=== PATIENT | female | born 1945 | race Caucasian/White ===

== ENCOUNTER → 2019-05-20 11:14 | Outpatient (CLI) | payer MEDICARE, OTHER, SELFPAY ==
[2019-05-20 12:24] LABS: Add Manual Diff / Slide Review NO; Basophils Absolute Auto 0 /uL (0-100); Basophils Percent Auto 0.7 % (0-2); Eosinophils Absolute Auto 200 /uL (0-450); Eosinophils Percent Auto 3.6 % (2-4); Hematocrit 38.8 % (36-46); Hemoglobin 12.8 g/dL (12.0-16.0); Lymphocytes Absolute Auto 1200 /uL (1100-4500); Lymphocytes Percent Auto 24.7 % (25-40); Mean Corpuscular HGB Conc 32.9 % (30-36); Mean Corpuscular Hemoglobin 30.7 PG (26-34); Mean Corpuscular Volume 93.2 fL (80-100); Monocytes Absolute Auto 500 /uL (0-900); Monocytes Percent Auto 10.6 % (3-14); Neutrophils Absolute Auto 2900 /uL (1500-7000); Neutrophils Percent Auto 60.4 % (50-75); Platelet Count 161 X10^3/uL (150-400); Red Blood Cell Count 4.17 X10^6/uL (4.0-5.2); Red Cell Distribution Width 13.2 % (11.6-14.8); White Blood Cell Count 4.8 X10^3/uL (4.5-11.0)
[2019-05-20 12:37] LABS: Creatine Kinase 54 U/L (30-135)
[2019-05-20 12:38] LABS: C-Reactive Protein Quant < 0.5 mg/dL (<1.0)
[2019-05-20 12:54] LABS: Erythrocyte Sedimentation Rate 9 MM/HR (0-20)
== END ==
PROVIDERS: PCP Internal Medicine; Visit Provider Internal Medicine
DX: M79.10 Myalgia, unspecified site (principal); M79.606 Pain in leg, unspecified; E03.9 Hypothyroidism, unspecified; I10 Essential (primary) hypertension; I48.0 Paroxysmal atrial fibrillation; Z79.01 Long term (current) use of anticoagulants
CPT/HCPCS: 36415; 82550; 85025; 85651; 86140

== ENCOUNTER → 2019-08-04 09:08 | Outpatient (CLI) | payer MEDICARE, OTHER, SELFPAY ==
--- NOTE | 2019-08-04 09:11 | DI.RAD.S_ITS ---
PROCEDURE: XR LUMBAR SPINE MIN 4V INDICATIONS: Leg Weakness TECHNIQUE: 5 total views of the lumbar spine were acquired, including bilateral oblique views. COMPARISON: [facility], MR, LUMBAR SPINE W/O CONTRAST, 12/22/2009, 18:26. [facility], CR, L-SPINE 2-3 VIEWS, 10/14/2006, 9:43. FINDINGS: Bones: 5 nonrib-bearing, lumbar type vertebral bodies are seen. No displaced fractures are seen. No suspicious lytic or blastic lesions are seen. There is moderate levoconvex lumbar scoliosis. There is mild retrolisthesis seen at L2-L3 and L3-L4. There is moderate to severe disc space narrowing seen at L1-L2 L3, L3-L4. Yspx-pj-yteagbuc disc space narrowing is seen at T12-L1, L4-L5, and L5-S1. Endplate irregularity and sclerosis are seen, which are most prominent at L1-L2 and L2-L3. Several levels of bridging anterior osteophytes are seen. Facet arthropathy is seen throughout. Soft tissues: Overlying bowel gas pattern is normal. No suspicious soft tissue calcifications. Cholecystectomy clips are seen. Oblique images: No pars defects. IMPRESSION: Levoconvex scoliosis and multiple levels of degenerative change, which are most prominent superiorly. No pars defects are seen. Dictated by: Joshua Mustafa M.D. on 08/04/2019 at 10:23 Approved by: Joshua Mustafa M.D. on 08/04/2019 at 10:26
== END ==
PROVIDERS: PCP Internal Medicine; Referring Provider Family Medicine; Visit Provider Family Medicine
DX: M47.816 Spondylosis without myelopathy or radiculopathy, lumbar region (principal); R29.898 Other symptoms and signs involving the musculoskeletal system; M41.86 Other forms of scoliosis, lumbar region; M43.16 Spondylolisthesis, lumbar region
CPT/HCPCS: 72110

== ENCOUNTER → 2019-08-31 09:18 | Outpatient (CLI) | payer MEDICARE, OTHER, SELFPAY | PROVIDERS: PCP Family Medicine; Referring Provider Family Medicine; Visit Provider Internal Medicine | DX: M85.852 Other specified disorders of bone density and structure, left thigh (principal); Z78.0 Asymptomatic menopausal state; E07.9 Disorder of thyroid, unspecified; Z82.62 Family history of osteoporosis | CPT/HCPCS: 77080; 77081 ==

== ENCOUNTER 2019-09-13 14:30 | Outpatient (RCR) | payer MEDICARE, OTHER, SELFPAY ==
--- NOTE | 2019-08-11 19:40 | PT.OIE ---
Current Diagnoses Spondylolisthesis, site unspecified (08/11/19) Difficulty in walking, not elsewhere classified (08/11/19) Abnormal posture (08/11/19) Weakness (08/11/19) Past Medical History (Last Reviewed 08/04/19 @ 18:04 by Jonathan Johnston DO) Abnormal chest xray (Inactive ~2010) Allergies (Chronic ~1999) Cardiac arrhythmia (Chronic ~2010) Cerumen impaction (Acute) Chicken pox (Resolved ~1949) Colon polyps (Chronic ~2016) Deep vein thrombosis (Chronic ~2010) Diverticular disease (Chronic ~2010) Essential hypertension (Chronic ~2004) GERD (gastroesophageal reflux disease) (Chronic ~2004) Headache (Chronic) Hearing loss (Chronic ~2008) Heart failure (Chronic ~2010) Heart stopped beating (Resolved ~2010) History of pulmonary embolism (Chronic ~2010) History of respiratory disorder (Chronic ~2010) Hypothyroid (Chronic) 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 ~1966) longterm current use of anticoagulant (Chronic) Measles (Resolved ~1949) Mumps (Resolved) Osteopenia (Chronic ~2004) Paroxysmal A-fib (Chronic ~2010) Pertussis (Resolved ~1954) Rheumatoid arthritis (Chronic) Rib fractures (Resolved) Rubella (Resolved ~1949) Scoliosis (Chronic ~1954) Sinusitis (Acute) Spondylisthesis (Acute) TGA (transient global amnesia) (Chronic ~2014) Vision disorder (Chronic) Past Surgical History (Last Updated 02/11/19 @ 19:36 by Anaid Tamez) Anesthesia (Resolved) Cataracts, bilateral (Resolved ~2013) History of colectomy (Resolved ~2010) History of dilation and curettage (Resolved) History of kidney surgery (Resolved ~2010) History of surgery (Resolved ~1966) History of tonsillectomy and adenoidectomy (Resolved) History of tubal ligation (Resolved) S/P devora (Resolved ~1992) S/P exploratory laparotomy (Resolved) S/P partial colectomy (Resolved ~2010) Strabismus (Resolved) Visit Care Team Role Provider Type Mo [place] MD Primary Care Provider Physician Specialty: Internal Medicine Address: [address] [place] [address], [address], [facility] Email: [email or web address] Jonathan Johnston DO Attending Provider Physician Referring Provider Specialty: Family Practice Address: [address] [place] [address], [id number] Email: [email or web address] Physical Therapy Initial Evaluation PT-OP-A Visit Information Start: 08/11/19 08:17 Freq: Status: Active Protocol: Document 08/11/19 08:17 [facility] (Rec: 08/11/19 09:09 [facility] [id number]) Out-Patient Physical Therapy Visit Information Visit Information Visit Type Initial Evaluation Visit Start Time 08:17 Visit Stop Time 09:00 Total Visit Minutes 43 Visit Number 1 Number of SITE LEASING AGENT Visits 0 PT-OP-B Current Condition Start: 08/11/19 08:17 Freq: Status: Active Protocol: Document 08/11/19 08:17 [facility] (Rec: 08/11/19 09:09 [facility] [id number]) Current Condition History of Current Condition Onset Date 2009 Current Complaints LBP, dec L leg strength, dec balance History of Current Condition Pt reports in 2009 she had a MRI and was diagonosed with nerve issues and did PT. SHe had septic shock and kidney failure with further medical issues where [facility] was in the hospital and bed bound. Pt reports waking up with numbness in L thigh and weakness in leg. She did therapy to get walking again. Pt reports her LLE gives out from her and has been loosing her balance a lot recenlty especially since [facility] has had balance issues prior. SHe has been falling about 3 times over the past few months. REports LLE is weak and doesn' t hold her up. About 3 years ago, she had really bad SI joint pain and she did PT which was successful. Pt reports when she walks her back gets really tight in lumbar area but if she sits for 1 min then it relaxes. If she sits for too long, she ends up with leg weakness. She can sit for about 15 min but when she gets up, her legs feel weak. Pt has difficulty getting up/down from the floor . Pt reports she can only be up for about 5-10 min before L leg feels weak. 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 lot of photography which is difficult d/t balance and lack of endurance Prior Treatments and Tests PT a few times for back pain and leg weakness Treatment Goals Patient/Caregiver Goals dec falls so she doesn't fall anymore, improve balance, be able to walk more than 4-5 min without back pain requiring her to sit, build LLE strength , have greater ease with getting up off ground without using outside surface PT-OP-G Mobility & Gait Start: 08/11/19 08:17 Freq: Status: Active Protocol: Document 08/11/19 08:17 [facility] (Rec: 08/11/19 15:14 [facility] [id number]) OP Gait Assessment Comments Gait Comments Pt amb with L lat shear of ribcage with dec overall push off and slight inc L lat lean PT-OP-J Posture/Palpation/Skin Start: 08/11/19 08:17 Freq: Status: Active Protocol: Document 08/11/19 08:17 [facility] (Rec: 08/11/19 15:14 [facility] [id number]) Posture Evaluation Comments Posture Comments fwd head & shoulders significantly, ribcage sheared L PT-OP-M Strength Start: 08/11/19 08:17 Freq: Status: Active Protocol: Document 08/11/19 08:17 [facility] (Rec: 08/11/19 09:09 [facility] [id number]) Hip Strength Hip Manual Muscle Testing Right Flexion (L2) 4 Good Abduction 3 Fair External Rotation 3+ Fair+ Internal Rotation 3+ Fair+ Left Flexion (L2) 3+ Fair+ Abduction 3 Fair External Rotation 3 Fair Internal Rotation 3 Fair Knee Strength Knee Manual Muscle Testing Right Flexion (S2) 4- Good- Extension (L3) 4 Good Left Flexion (S2) 3+ Fair+ Extension (L3) 3 Fair Ankle/Foot Strength Ankle and Foot Manual Muscle Testing Right Dorsiflexion (L4) 4 Good Plantarflexion (S1) 4- Good- Comments PF tested seated Left Dorsiflexion (L4) 3+ Fair+ Plantarflexion (S1) 3+ Fair+ PT-OP-Q Treatments Start: 08/11/19 08:17 Freq: Status: Active Protocol: Document 08/11/19 08:17 [facility] (Rec: 08/11/19 09:09 [facility] [id number]) Therapeutic Exercises Sidelying Exercises abd Side bilateral Reps/Minutes 10 ER Side bilateral Reps/Minutes 10 Sitting Exercises QL stretch Side bilateral Reps/Minutes 30 sec PT-OP-T Assessment and Plan Start: 08/11/19 08:17 Freq: Status: Active Protocol: Document 08/11/19 08:17 [facility] (Rec: 08/11/19 09:09 [facility] [id number]) Physical Therapy Assessment Rehab Potential Rehabilitation Potential Good Evaluation Complexity Number of Personal Factors/Comorbidities 3 or More Number of Body Systems Impaired 4 or More Clinical Presentation at Evaluation Evolving Impairments Impairments Activity Tolerance,Functional Activities,Functional Mobility ,Gait,Pain,Posture,ROM,Soft Tissue Mobility,Strength Goals strength Short Term Goal (STG) Pt will be indep with HEP. STG Duration 09/09/19 Advertising Account Executive Goal (LTG) Pt will score at least 4+/5 on LE strength and 3/5 on LPM in order to allow pt to do typical tasks including being safe on her boat. LTG Duration 10/10/19 FGA Impairment 16/30 Short Term Goal (STG) Pt will improve to 20/30 STG Duration 09/09/19 Advertising Account Executive Goal (LTG) Pt will improve to 25/30 to show dec fall risk. LTG Duration 10/10/19 oswestry Impairment 16/50 Advertising Account Executive Goal (LTG) Pt will improve score to 6/50 in order to show improved functional ability LTG Duration 10/10/19 balance Impairment PAT 44, DGI 17 Short Term Goal (STG) Pt perkins core 50 on PAT to be less likely to fall in outdoors & community. STG Duration 09/09/19 Advertising Account Executive Goal (LTG) Pt will improve DGI to 20/24 to be less likely to fall. LTG Duration 10/10/19 Assessment Summary Assessment Pt presents with chronic LBP and L tigh numbness, which pt has noted signficant L sided weakness that has caused her to have mutiple falls with concern for further falls.S he is limited in time sitting and standing d/t pain and weakness of leg. Pt would benefit from PT in order to work on ability to sit and stand, improve balance, improve gait, LE & core strength and improve pt's safety as she leaves on a boat trip in 2 months. Physical Therapy Plan Frequency and Duration Frequency of Treatment 2x/Week Duration of Treatment 2 months Plan of Care Start Date 08/11/19 Plan of Care End Date 10/10/19 Therapeutic Interventions Therapeutic Interventions Aquatic Therapy,Balance Training,Gait Training,Home Exercise Program,Joint Mobilizations,Manual Therapy, Neuromuscular Re-education, Patient/Caregiver Education, Self-Care/Home Management,Soft Tissue Mobilization,Taping, Therapeutic Activities, Therapeutic Exercises Modalities Cold Pack/Ice Massage,Electric Stimulation,Hot Packs Next Visit Focus/Plan Next Note Type Treatment Note Next Visit Plan supine core stability exercises, review other HEP, hip stretches, standing balance exercises (balance board, tandem stance)
--- NOTE | 2019-08-11 19:40 | PT.OPPOC ---
Physical, Occupational & Speech Therapy At [facility] Current Diagnoses Spondylolisthesis, site unspecified (08/11/19) Difficulty in walking, not elsewhere classified (08/11/19) Abnormal posture (08/11/19) Weakness (08/11/19) Visit Care Team Role Provider Type Mo [place] MD Primary Care Provider Physician Specialty: Internal Medicine Address: [address] [place] [address], [address], [place], [address] Email: [email or web address] Jonathan Johnston DO Attending Provider Physician Referring Provider Specialty: Family Practice Address: [address] [place] [address], [address] Email: [email or web address] Plan Of Care PT-OP-T Assessment and Plan Start: 08/11/19 08:17 Freq: Status: Active Protocol: Document 08/11/19 08:17 [facility] (Rec: 08/11/19 09:09 [facility] [id number]) Physical Therapy Assessment Rehab Potential Rehabilitation Potential Good Evaluation Complexity Number of Personal Factors/Comorbidities 3 or More Number of Body Systems Impaired 4 or More Clinical Presentation at Evaluation Evolving Impairments Impairments Activity Tolerance,Functional Activities,Functional Mobility ,Gait,Pain,Posture,ROM,Soft Tissue Mobility,Strength Goals strength Short Term Goal (STG) Pt will be indep with HEP. STG Duration 09/09/19 Process Engineering Intern Goal (LTG) Pt will score at least 4+/5 on LE strength and 3/5 on LPM in order to allow pt to do typical tasks including being safe on her boat. LTG Duration 10/10/19 FGA Impairment 16/30 Short Term Goal (STG) Pt will improve to 20/30 STG Duration 09/09/19 Fdc Goal (LTG) Pt will improve to 25/30 to show dec fall risk. LTG Duration 10/10/19 oswestry Impairment 16/50 Process Engineering Intern Goal (LTG) Pt will improve score to 6/50 in order to show improved functional ability LTG Duration 10/10/19 balance Impairment PAT 44, DGI 17 Short Term Goal (STG) Pt perkins core 50 on PAT to be less likely to fall in outdoors & community. STG Duration 09/09/19 Fdc Goal (LTG) Pt will improve DGI to to be less likely to fall. LTG Duration 10/10/19 Assessment Summary Assessment Pt presents with chronic LBP and L tigh numbness, which pt has noted signficant L sided weakness that has caused her to have mutiple falls with concern for further falls.S he is limited in time sitting and standing d/t pain and weakness of leg. Pt would benefit from PT in order to work on ability to sit and stand, improve balance, improve gait, LE & core strength and improve pt's safety as she leaves on a boat trip in 2 months. Physical Therapy Plan Frequency and Duration Frequency of Treatment 2x/Week Duration of Treatment 2 months Plan of Care Start Date 08/11/19 Plan of Care End Date 10/10/19 Therapeutic Interventions Therapeutic Interventions Aquatic Therapy,Balance Training,Gait Training,Home Exercise Program,Joint Mobilizations,Manual Therapy, Neuromuscular Re-education, Patient/Caregiver Education, Self-Care/Home Management,Soft Tissue Mobilization,Taping, Therapeutic Activities, Therapeutic Exercises Modalities Cold Pack/Ice Massage,Electric Stimulation,Hot Packs Next Visit Focus/Plan Next Note Type Treatment Note Next Visit Plan supine core stability exercises, review other HEP, hip stretches, standing balance exercises (balance board, tandem stance) Plan of Care Dates Plan of Care Start Date 08/11/19 Plan of Care End Date 10/10/19 Electronically Signed by: Sylvia Christopher, PT 08/11/19 1940 Please Sign and Return: I have reviewed this Plan of Care and certify that the skilled therapy services above are required to meet the patient?s needs. Physician Signature Date Printed Name and Credentials Clinical Instructor Signature Printed Name and Credentials
--- NOTE | 2019-08-12 12:06 | PT.OTN ---
Current Diagnoses Spondylolisthesis, site unspecified (08/12/19) Difficulty in walking, not elsewhere classified (08/12/19) Abnormal posture (08/12/19) Weakness (08/12/19) Physical Therapy Treatment Note PT-OP-A Visit Information Start: 08/11/19 08:17 Freq: Status: Active Protocol: Document 08/12/19 11:24 [facility] (Rec: 08/12/19 12:01 [facility] [id number]) Out-Patient Physical Therapy Visit Information Visit Information Visit Type Treatment Note Visit Start Time 11:19 Visit Stop Time 11:59 Total Visit Minutes 40 Visit Number 2 Number of RETAIL BAKERY MANAGER Visits 0 PT-OP-B Current Condition Start: 08/11/19 08:17 Freq: Status: Active Protocol: Document 08/11/19 08:17 [facility] (Rec: 08/11/19 09:09 [facility] [id number]) Current Condition History of Current Condition Onset Date 2009 Current Complaints LBP, dec L leg strength, dec balance History of Current Condition Pt reports in 2009 she had a MRI and was diagonosed with nerve issues and did PT. SHe had septic shock and kidney failure with further medical issues where [facility] was in the hospital and bed bound. Pt reports waking up with numbness in L thigh and weakness in leg. She did therapy to get walking again. Pt reports her LLE gives out from her and has been loosing her balance a lot recenlty especially since [facility] has had balance issues prior. SHe has been falling about 3 times over the past few months. REports LLE is weak and doesn' t hold her up. About 3 years ago, she had really bad SI joint pain and she did PT which was successful. Pt reports when she walks her back gets really tight in lumbar area but if she sits for 1 min then it relaxes. If she sits for too long, she ends up with leg weakness. She can sit for about 15 min but when she gets up, her legs feel weak. Pt has difficulty getting up/down from the floor . Pt reports she can only be up for about 5-10 min before L leg feels weak. 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 photography which is difficult d/t balance and lack of endurance Prior Treatments and Tests PT a few times for back pain and leg weakness Treatment Goals Patient/Caregiver Goals dec falls so she doesn't fall anymore, improve balance, be able to walk more than 4-5 min without back pain requiring her to sit, build LLE strength , have greater ease with getting up off ground without using outside surface PT-OP-C Subjective Start: 08/11/19 08:17 Freq: Status: Active Protocol: Document 08/12/19 11:24 [facility] (Rec: 08/12/19 12:01 [facility] [id number]) OP-PT Subjective Patient Comments Patient Comments Compliance with HEP PT-OP-G Mobility & Gait Start: 08/11/19 08:17 Freq: Status: Active Protocol: Document 08/11/19 08:17 [facility] (Rec: 08/11/19 15:14 [facility] [id number]) OP Gait Assessment Comments Gait Comments Pt amb with L lat shear of ribcage with dec overall push off and slight inc L lat lean PT-OP-J Posture/Palpation/Skin Start: 08/11/19 08:17 Freq: Status: Active Protocol: Document 08/11/19 08:17 [facility] (Rec: 08/11/19 15:14 [facility] [id number]) Posture Evaluation Comments Posture Comments fwd head & shoulders significantly, ribcage sheared L PT-OP-M Strength Start: 08/11/19 08:17 Freq: Status: Active Protocol: Document 08/11/19 08:17 [facility] (Rec: 08/11/19 09:09 [facility] [id number]) Hip Strength Hip Manual Muscle Testing Right Flexion (L2) 4 Good Abduction 3 Fair External Rotation 3+ Fair+ Internal Rotation 3+ Fair+ Left Flexion (L2) 3+ Fair+ Abduction 3 Fair External Rotation 3 Fair Internal Rotation 3 Fair Knee Strength Knee Manual Muscle Testing Right Flexion (S2) 4- Good- Extension (L3) 4 Good Left Flexion (S2) 3+ Fair+ Extension (L3) 3 Fair Ankle/Foot Strength Ankle and Foot Manual Muscle Testing Right Dorsiflexion (L4) 4 Good Plantarflexion (S1) 4- Good- Comments PF tested seated Left Dorsiflexion (L4) 3+ Fair+ Plantarflexion (S1) 3+ Fair+ PT-OP-Q Treatments Start: 08/11/19 08:17 Freq: Status: Active Protocol: Document 08/12/19 11:24 [facility] (Rec: 08/12/19 12:01 [facility] [id number]) Cardio Equipment Recumbent Elliptical (Biodex) Duration (Minutes) 5 Resistance 3 Seat Position 6 Gym Equipment Shuttle Recovery Unilateral Squats Details B Resistance 37# Shuttle Recovery Platform Stable Reps/Time 2x10 Bilateral Squats Resistance 75# Shuttle Recovery Platform Stable Reps/Time 20 Shuttle Balance blue clips Details fwd & side : WBOS & NBOS; fwd: staggered stance B Therapeutic Exercises Supine Exercises bridge Side bilateral Reps/Minutes 10 hip flex Supine Exercise Name august w/Tabd contraction Side bilateral Reps/Minutes 15 HS Supine Exercise Name stretch Side left Reps/Minutes 30 sec x2 Sidelying Exercises abd Side bilateral Reps/Minutes 8 ER Side bilateral Reps/Minutes 8 Sitting Exercises QL stretch Side bilateral Reps/Minutes 30 sec Standing Exercises resisted walk Standing Exercise Name fwd/back Side bilateral Equipment Used yellow tband Reps/Minutes 20ftx2 side step Side bilateral Equipment Used yellow tband Reps/Minutes 20ft ea Neuro Re-Education Treatment Balance Activities foam pad Details NBOS w/head turns tpads Details staggered stance B Comments head turns PT-OP-T Assessment and Plan Start: 08/11/19 08:17 Freq: Status: Active Protocol: Document 08/12/19 11:24 [facility] (Rec: 08/12/19 12:01 [facility] [id number]) Physical Therapy Assessment Goals strength Short Term Goal (STG) Pt will be indep with HEP. STG Duration 09/09/19 Senior Living Goal (LTG) Pt will score at least 4+/5 on LE strength and 3/5 on LPM in order to allow pt to do typical tasks including being safe on her boat. LTG Duration 10/10/19 FGA Impairment 16/30 Short Term Goal (STG) Pt will improve to 20/30 STG Duration 09/09/19 Subcontract Manager Goal (LTG) Pt will improve to 25/30 to show dec fall risk. LTG Duration 10/10/19 oswestry Impairment 16/50 Senior Living Goal (LTG) Pt will improve score to 6/50 in order to show improved functional ability LTG Duration 10/10/19 balance Impairment PAT 44, DGI 17 Short Term Goal (STG) Pt perkins core 50 on PAT to be less likely to fall in outdoors & community. STG Duration 09/09/19 Subcontract Manager Goal (LTG) Pt will improve DGI to to be less likely to fall. LTG Duration 10/10/19 Assessment Summary Assessment Pt did well with exercises with cueing on L side required for clamshells and s/l abd to avoid hip rolling back. She was challenged by all balance activities especially the balance board but was able to tolerate full session witohout breaks. Physical Therapy Plan Frequency and Duration Frequency of Treatment 2x/Week Duration of Treatment 2 months Plan of Care Start Date 08/11/19 Plan of Care End Date 10/10/19 Next Visit Focus/Plan Next Note Type Treatment Note Next Visit Plan review HEP, cont to progress standing balacne.
--- NOTE | 2019-08-16 16:47 | PT.OTN ---
Current Diagnoses Spondylolisthesis, site unspecified (08/16/19) Difficulty in walking, not elsewhere classified (08/16/19) Abnormal posture (08/16/19) Weakness (08/16/19) Physical Therapy Treatment Note PT-OP-A Visit Information Start: 08/11/19 08:17 Freq: Status: Active Protocol: Document 08/16/19 14:38 [facility] (Rec: 08/16/19 16:47 [facility] [id number]) Out-Patient Physical Therapy Visit Information Visit Information Visit Type Treatment Note Visit Start Time 14:35 Visit Stop Time 15:14 Total Visit Minutes 39 Visit Number 3 Number of TECHNICAL SUPERVISOR Visits 0 PT-OP-B Current Condition Start: 08/11/19 08:17 Freq: Status: Active Protocol: Document 08/11/19 08:17 [facility] (Rec: 08/11/19 09:09 [facility] [id number]) Current Condition History of Current Condition Onset Date 2009 Current Complaints LBP, dec L leg strength, dec balance History of Current Condition Pt reports in 2009 she had a MRI and was diagonosed with nerve issues and did PT. SHe had septic shock and kidney failure with further medical issues where [facility] was in the hospital and bed bound. Pt reports waking up with numbness in L thigh and weakness in leg. She did therapy to get walking again. Pt reports her LLE gives out from her and has been loosing her balance a lot recenlty especially since [facility] has had balance issues prior. SHe has been falling about 3 times over the past few months. REports LLE is weak and doesn' t hold her up. About 3 years ago, she had really bad SI joint pain and she did PT which was successful. Pt reports when she walks her back gets really tight in lumbar area but if she sits for 1 min then it relaxes. If she sits for too long, she ends up with leg weakness. She can sit for about 15 min but when she gets up, her legs feel weak. Pt has difficulty getting up/down from the floor . Pt reports she can only be up for about 5-10 min before L leg feels weak. 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 and do a lot of photography which is difficult d/t balance and lack of endurance Prior Treatments and Tests PT a few times for back pain and leg weakness Treatment Goals Patient/Caregiver Goals dec falls so she doesn't fall anymore, improve balance, be able to walk more than 4-5 min without back pain requiring her to sit, build LLE strength , have greater ease with getting up off ground without using outside surface PT-OP-C Subjective Start: 08/11/19 08:17 Freq: Status: Active Protocol: Document 08/16/19 14:38 [facility] (Rec: 08/16/19 16:47 [facility] [id number]) OP-PT Subjective Patient Comments Patient Comments Pt reports she already feels stronger. Even getting out of her low car today was easier. Patient Reported Progress Improving PT-OP-G Mobility & Gait Start: 08/11/19 08:17 Freq: Status: Active Protocol: Document 08/11/19 08:17 [facility] (Rec: 08/11/19 15:14 [facility] [email or web address]) OP Gait Assessment Comments Gait Comments Pt amb with L lat shear of ribcage with dec overall push off and slight inc L lat lean PT-OP-J Posture/Palpation/Skin Start: 08/11/19 08:17 Freq: Status: Active Protocol: Document 08/11/19 08:17 [facility] (Rec: 08/11/19 15:14 [facility] [email or web address]) Posture Evaluation Comments Posture Comments fwd head & shoulders significantly, ribcage sheared L PT-OP-M Strength Start: 08/11/19 08:17 Freq: Status: Active Protocol: Document 08/11/19 08:17 [facility] (Rec: 08/11/19 09:09 [facility] [id number]) Hip Strength Hip Manual Muscle Testing Right Flexion (L2) 4 Good Abduction 3 Fair External Rotation 3+ Fair+ Internal Rotation 3+ Fair+ Left Flexion (L2) 3+ Fair+ Abduction 3 Fair External Rotation 3 Fair Internal Rotation 3 Fair Knee Strength Knee Manual Muscle Testing Right Flexion (S2) 4- Good- Extension (L3) 4 Good Left Flexion (S2) 3+ Fair+ Extension (L3) 3 Fair Ankle/Foot Strength Ankle and Foot Manual Muscle Testing Right Dorsiflexion (L4) 4 Good Plantarflexion (S1) 4- Good- Comments PF tested seated Left Dorsiflexion (L4) 3+ Fair+ Plantarflexion (S1) 3+ Fair+ PT-OP-Q Treatments Start: 08/11/19 08:17 Freq: Status: Active Protocol: Document 08/16/19 14:38 [facility] (Rec: 08/16/19 16:47 [facility] [id number]) Cardio Equipment Recumbent Stepper (Sci-Fit) Duration (Minutes) 6 Resistance 5 Seat Position 10 Gym Equipment Shuttle Recovery Unilateral Squats Details B Resistance 37# Shuttle Recovery Platform Stable Reps/Time 2x10 Bilateral Squats Resistance 75# Shuttle Recovery Platform Stable Reps/Time 20 Shuttle Balance blue clips Details fwd & side : WBOS & NBOS; fwd: staggered stance B Comments head turns Therapeutic Exercises Standing Exercises resisted walk Standing Exercise Name fwd/back Side bilateral Equipment Used yellow tband Reps/Minutes 20ftx2 side step Side bilateral Equipment Used yellow tband Reps/Minutes 20ft x2ea Neuro Re-Education Treatment Balance Activities bosu Comments 1.step ups w/rail prn x6 2. balancing hurdles Details over 6 Reps/Duration fwd x6; side x2 ea way foam pad Details NBOS w/head turns then EC tpads Details staggered stance B Comments head turns then EC PT-OP-T Assessment and Plan Start: 08/11/19 08:17 Freq: Status: Active Protocol: Document 08/16/19 14:38 [facility] (Rec: 08/16/19 16:47 [facility] [id number]) Physical Therapy Assessment Goals strength Short Term Goal (STG) Pt will be indep with HEP. STG Duration 09/09/19 Fisher Weir Goal (LTG) Pt will score at least 4+/5 on LE strength and 3/5 on LPM in order to allow pt to do typical tasks including being safe on her boat. LTG Duration 10/10/19 FGA Impairment 16/30 Short Term Goal (STG) Pt will improve to 20/30 STG Duration 09/09/19 Fisher Weir Goal (LTG) Pt will improve to 25/30 to show dec fall risk. LTG Duration 10/10/19 oswestry Impairment 16/50 Fisher Weir Goal (LTG) Pt will improve score to 6/50 in order to show improved functional ability LTG Duration 10/10/19 balance Impairment PAT 44, DGI 17 Short Term Goal (STG) Pt perkins core 50 on PAT to be less likely to fall in outdoors & community. STG Duration 09/09/19 Fisher Weir Goal (LTG) Pt will improve DGI to 20/24 to be less likely to fall. LTG Duration 10/10/19 Assessment Summary Assessment Pt did much better today with her balance and was able to do head turns on balance board and was able to do EC with challenge on foam pads with head turns being easier today. Physical Therapy Plan Frequency and Duration Frequency of Treatment 2x/Week Duration of Treatment 2 months Plan of Care Start Date 08/11/19 Plan of Care End Date 10/10/19 Next Visit Focus/Plan Next Note Type Treatment Note Next Visit Plan cont to advance balance
--- NOTE | 2019-08-18 09:39 | PT.OTN ---
Current Diagnoses Spondylolisthesis, site unspecified (08/18/19) Difficulty in walking, not elsewhere classified (08/18/19) Abnormal posture (08/18/19) Weakness (08/18/19) Physical Therapy Treatment Note PT-OP-A Visit Information Start: 08/11/19 08:17 Freq: Status: Active Protocol: Document 08/18/19 08:15 [facility] (Rec: 08/18/19 09:31 [facility] [id number]) Out-Patient Physical Therapy Visit Information Visit Information Visit Type Treatment Note Visit Start Time 08:15 Visit Stop Time 08:57 Total Visit Minutes 42 Visit Number 4 Number of MANAGER STEEL Visits 0 PT-OP-B Current Condition Start: 08/11/19 08:17 Freq: Status: Active Protocol: Document 08/11/19 08:17 [facility] (Rec: 08/11/19 09:09 [facility] [id number]) Current Condition History of Current Condition Onset Date 2009 Current Complaints LBP, dec L leg strength, dec balance History of Current Condition Pt reports in 2009 she had a MRI and was diagonosed with nerve issues and did PT. SHe had septic shock and kidney failure with further medical issues where [facility] was in the hospital and bed bound. Pt reports waking up with numbness in L thigh and weakness in leg. She did therapy to get walking again. Pt reports her LLE gives out from her and has been loosing her balance a lot recenlty especially since [facility] has had balance issues prior. SHe has been falling about 3 times over the past few months. REports LLE is weak and doesn' t hold her up. About 3 years ago, she had really bad SI joint pain and she did PT which was successful. Pt reports when she walks her back gets really tight in lumbar area but if she sits for 1 min then it relaxes. If she sits for too long, she ends up with leg weakness. She can sit for about 15 min but when she gets up, her legs feel weak. Pt has difficulty getting up/down from the floor . Pt reports she can only be up for about 5-10 min before L leg feels weak. 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 lot of photography which is difficult d/t balance and lack of endurance Prior Treatments and Tests PT a few times for back pain and leg weakness Treatment Goals Patient/Caregiver Goals dec falls so she doesn't fall anymore, improve balance, be able to walk more than 4-5 min without back pain requiring her to sit, build LLE strength , have greater ease with getting up off ground without using outside surface PT-OP-C Subjective Start: 08/11/19 08:17 Freq: Status: Active Protocol: Document 08/18/19 08:15 [facility] (Rec: 08/18/19 09:31 [facility] [id number]) OP-PT Subjective Patient Comments Patient Comments Patient reported that she is feeling better already and that we worked a miracle. She is still mostly concerned about her balance and lower leg strength. PT-OP-G Mobility & Gait Start: 08/11/19 08:17 Freq: Status: Active Protocol: Document 08/11/19 08:17 [facility] (Rec: 08/11/19 15:14 [facility] [id number]) OP Gait Assessment Comments Gait Comments Pt amb with L lat shear of ribcage with dec overall push off and slight inc L lat lean PT-OP-J Posture/Palpation/Skin Start: 08/11/19 08:17 Freq: Status: Active Protocol: Document 08/11/19 08:17 [facility] (Rec: 08/11/19 15:14 [facility] [email or web address]) Posture Evaluation Comments Posture Comments fwd head & shoulders significantly, ribcage sheared L PT-OP-M Strength Start: 08/11/19 08:17 Freq: Status: Active Protocol: Document 08/11/19 08:17 [facility] (Rec: 08/11/19 09:09 [facility] [id number]) Hip Strength Hip Manual Muscle Testing Right Flexion (L2) 4 Good Abduction 3 Fair External Rotation 3+ Fair+ Internal Rotation 3+ Fair+ Left Flexion (L2) 3+ Fair+ Abduction 3 Fair External Rotation 3 Fair Internal Rotation 3 Fair Knee Strength Knee Manual Muscle Testing Right Flexion (S2) 4- Good- Extension (L3) 4 Good Left Flexion (S2) 3+ Fair+ Extension (L3) 3 Fair Ankle/Foot Strength Ankle and Foot Manual Muscle Testing Right Dorsiflexion (L4) 4 Good Plantarflexion (S1) 4- Good- Comments PF tested seated Left Dorsiflexion (L4) 3+ Fair+ Plantarflexion (S1) 3+ Fair+ PT-OP-Q Treatments Start: 08/11/19 08:17 Freq: Status: Active Protocol: Document 08/18/19 08:15 [facility] (Rec: 08/18/19 09:31 [facility] [email or web address]) Cardio Equipment Recumbent Stepper (Sci-Fit) Duration (Minutes) 7 Resistance 2.0 Seat Position 10 Other 1.0 mile Gym Equipment Shuttle Recovery Bilateral Heel Raises Details Heel raise Resistance 62# Shuttle Recovery Platform Stable Reps/Time 20x Unilateral Squats Details B Resistance 37# Shuttle Recovery Platform Stable Reps/Time 2x12 Bilateral Squats Resistance 75# Shuttle Recovery Platform Stable Reps/Time 2x12 Shuttle Balance blue clips Details fwd & side : WBOS & NBOS Comments baloon toss when facing forward Neuro Re-Education Treatment Balance Activities Obstacle Course Details Hurdles, balance beam, T-pad, and foam pad Reps/Duration 10x through Comments GAS INSPECTOR and gait belt with balance beam. Needs verbal cues to increase step height over hurdles. Rocker Board Details Done with head turns and EC A/ P/L Equipment Rocker Board Comments Used wall rail and CGA Head turns with varied MARGOTH - stable ground Details Head turns up/down and side to side Comments Done with feet together eyes closed; tandem eyes closed - both positions with head turns as well. Used wall rail and CGA PT-OP-T Assessment and Plan Start: 08/11/19 08:17 Freq: Status: Active Protocol: Document 08/18/19 08:15 [facility] (Rec: 08/18/19 09:31 [facility] [email or web address]) Physical Therapy Assessment Goals strength Short Term Goal (STG) Pt will be indep with HEP. STG Duration 09/09/19 Ged Teacher Goal (LTG) Pt will score at least 4+/5 on LE strength and 3/5 on LPM in order to allow pt to do typical tasks including being safe on her boat. LTG Duration 10/10/19 FGA Impairment 16/30 Short Term Goal (STG) Pt will improve to 20/30 STG Duration 09/09/19 Ged Teacher Goal (LTG) Pt will improve to 25/30 to show dec fall risk. LTG Duration 10/10/19 oswestry Impairment 16/50 [facility] Goal (LTG) Pt will improve score to 6/50 in order to show improved functional ability LTG Duration 10/10/19 balance Impairment PAT 44, DGI 17 Short Term Goal (STG) Pt perkins core 50 on PAT to be less likely to fall in outdoors & community. STG Duration 09/09/19 [facility] Goal (LTG) Pt will improve DGI to 20/24 to be less likely to fall. LTG Duration 10/10/19 Assessment Summary Assessment Patient did well with treatment today and was able to perform balance activities with minimal LOB that was recovered independently. Patient has most balance impairments when vision is taken away as well as with a decreased MARGOTH. Patient should continue to practice balance activities on unstable surfaces with increased vision challenges to prepare patient for being on boat with limited lighting. Physical Therapy Plan Frequency and Duration Frequency of Treatment 2x/Week Duration of Treatment 2 months Plan of Care Start Date 08/11/19 Plan of Care End Date 10/10/19 Next Visit Focus/Plan Next Note Type Treatment Note Next Visit Plan Continue to work on balance challenges with limited vision and unstable surface. Advance stepping on to unstable surface. Oriana Boss, KAMALAT, supervised all treatment performed by, and agreed with the plan of care, as performed by Gogo Arizmendi, YEIMY.
--- NOTE | 2019-09-01 09:00 | PT.OTN ---
Current Diagnoses Spondylolisthesis, site unspecified (09/01/19) Difficulty in walking, not elsewhere classified (09/01/19) Abnormal posture (09/01/19) Weakness (09/01/19) Physical Therapy Treatment Note PT-OP-A Visit Information Start: 08/11/19 08:17 Freq: Status: Active Protocol: Document 09/01/19 09:00 [facility] (Rec: 09/01/19 10:06 DL [id number]) Out-Patient Physical Therapy Visit Information Visit Information Visit Type Treatment Note Visit Start Time 09:00 Visit Stop Time 09:50 Total Visit Minutes 50 Visit Number 5 Number of ORE FIELDER Visits 0 Evaluation Information Evaluation Date 08/11/19 PT-OP-B Current Condition Start: 08/11/19 08:17 Freq: Status: Active Protocol: Document 08/11/19 08:17 [facility] (Rec: 08/11/19 09:09 [facility] [id number]) Current Condition History of Current Condition Onset Date 2009 Current Complaints LBP, dec L leg strength, dec balance History of Current Condition Pt reports in 2009 she had a MRI and was diagonosed with nerve issues and did PT. SHe had septic shock and kidney failure with further medical issues where [facility] was in the hospital and bed bound. Pt reports waking up with numbness in L thigh and weakness in leg. She did therapy to get walking again. Pt reports her LLE gives out from her and has been loosing her balance a lot recenlty especially since [facility] has had balance issues prior. SHe has been falling about 3 times over the past few months. REports LLE is weak and doesn' t hold her up. About 3 years ago, she had really bad SI joint pain and she did PT which was successful. Pt reports when she walks her back gets really tight in lumbar area but if she sits for 1 min then it relaxes. If she sits for too long, she ends up with leg weakness. She can sit for about 15 min but when she gets up, her legs feel weak. Pt has difficulty getting up/down from the floor . Pt reports she can only be up for about 5-10 min before L leg feels weak. 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 a lot of photography which is difficult d/t balance and lack of endurance Prior Treatments and Tests PT a few times for back pain and leg weakness Treatment Goals Patient/Caregiver Goals dec falls so she doesn't fall anymore, improve balance, be able to walk more than 4-5 min without back pain requiring her to sit, build LLE strength , have greater ease with getting up off ground without using outside surface PT-OP-C Subjective Start: 08/11/19 08:17 Freq: Status: Active Protocol: Document 09/01/19 09:00 [facility] (Rec: 09/01/19 10:06 [facility] [id number]) OP-PT Subjective Patient Comments Patient Comments She feels stronger, wants to work on her balance Patient Reported Progress Improving PT-OP-D Balance Start: 09/01/19 10:06 Freq: Status: Active Protocol: Document 09/01/19 09:00 [facility] (Rec: 09/01/19 10:19 [facility] [id number]) Balance Tests Pat Balance Test Pat Balance Test Score 51/56 Pat Impairment Rating 1 to 19% Impaired (Score 45-55 ) PT-OP-G Mobility & Gait Start: 08/11/19 08:17 Freq: Status: Active Protocol: Document 08/11/19 08:17 [facility] (Rec: 08/11/19 15:14 [facility] [id number]) OP Gait Assessment Comments Gait Comments Pt amb with L lat shear of ribcage with dec overall push off and slight inc L lat lean PT-OP-J Posture/Palpation/Skin Start: 08/11/19 08:17 Freq: Status: Active Protocol: Document 08/11/19 08:17 [facility] (Rec: 08/11/19 15:14 [facility] [id number]) Posture Evaluation Comments Posture Comments fwd head & shoulders significantly, ribcage sheared L PT-OP-M Strength Start: 08/11/19 08:17 Freq: Status: Active Protocol: Document 08/11/19 08:17 [facility] (Rec: 08/11/19 09:09 [facility] [id number]) Hip Strength Hip Manual Muscle Testing Right Flexion (L2) 4 Good Abduction 3 Fair External Rotation 3+ Fair+ Internal Rotation 3+ Fair+ Left Flexion (L2) 3+ Fair+ Abduction 3 Fair External Rotation 3 Fair Internal Rotation 3 Fair Knee Strength Knee Manual Muscle Testing Right Flexion (S2) 4- Good- Extension (L3) 4 Good Left Flexion (S2) 3+ Fair+ Extension (L3) 3 Fair Ankle/Foot Strength Ankle and Foot Manual Muscle Testing Right Dorsiflexion (L4) 4 Good Plantarflexion (S1) 4- Good- Comments PF tested seated Left Dorsiflexion (L4) 3+ Fair+ Plantarflexion (S1) 3+ Fair+ PT-OP-Q Treatments Start: 08/11/19 08:17 Freq: Status: Active Protocol: Document 09/01/19 09:00 [facility] (Rec: 09/01/19 10:19 [facility] [id number]) Cardio Equipment Recumbent Stepper (Sci-Fit) Duration (Minutes) 7 Resistance 2.0 Seat Position 10 Other 1.0 mile Gym Equipment Shuttle Recovery Bilateral Heel Raises Details Heel raise Resistance 62# Shuttle Recovery Platform Stable Reps/Time 20 reps Unilateral Squats Details Bilaterally Resistance 37# Shuttle Recovery Platform Stable Reps/Time 2x12 reps Bilateral Squats Details cuing to avoid IR right LE Resistance 75# Shuttle Recovery Platform Stable Reps/Time 2x12 reps Shuttle Balance blue clips Details fwd & side : WBOS & NBOS Comments stepping on and off with decreasing amounts of UE support Neuro Re-Education Treatment Balance Activities Stepping Details placing feet on/off step Surface level Equipment 6 in step, wall rail Reps/Duration 10 reps Comments focus on control and decreased reliance on vision, standing balance Cross-Overs Details focus on balance and control Surface firm and level Equipment near wall rail Reps/Duration 3 laps each direction Comments cues to slow down Tandem Details standing and gait Surface firm and level Equipment near wall rail Single Limb Standing Surface firm and level Equipment near wall rail Reps/Duration 5 reps each side Head turns with varied MARGOTH - stable ground Details Head turns up/down and side to side Equipment wall rail Comments Done with feet together eyes closed; tandem eyes closed - both positions with head turns as well. foam pad Details EO/EC/head motions Surface unstable Equipment near wall rail Comments added stepping on/off Self-Care/Home Management Treatment Education Patient Education Home Exercise Program Other Education add single limb standing to HEP PT-OP-T Assessment and Plan Start: 08/11/19 08:17 Freq: Status: Active Protocol: Document 09/01/19 09:00 [facility] (Rec: 09/01/19 10:19 [facility] [id number]) Physical Therapy Assessment Goals strength Short Term Goal (STG) Pt will be indep with HEP. STG Duration 09/09/19 Log Operations Coordinator Goal (LTG) Pt will score at least 4+/5 on LE strength and 3/5 on LPM in order to allow pt to do typical tasks including being safe on her boat. LTG Duration 10/10/19 FGA Impairment 16/30 Short Term Goal (STG) Pt will improve to 20/30 STG Duration 09/09/19 Log Operations Coordinator Goal (LTG) Pt will improve to 25/30 to show dec fall risk. LTG Duration 10/10/19 oswestry Impairment 16/50 Group Home Goal (LTG) Pt will improve score to 6/50 in order to show improved functional ability LTG Duration 10/10/19 balance Impairment PAT 44, DGI 17 Short Term Goal (STG) Pt perkins core 50 on PAT to be less likely to fall in outdoors & community. STG Duration 09/09/19 Group Home Goal (LTG) Pt will improve DGI to 20/24 to be less likely to fall. LTG Duration 10/10/19 Progress Towards Goals Progress Towards Goals Progressing Toward Goals Physical Therapy Plan Frequency and Duration Frequency of Treatment 2x/Week Duration of Treatment 2 months Plan of Care Start Date 08/11/19 Plan of Care End Date 10/10/19 Therapeutic Interventions Therapeutic Interventions Aquatic Therapy,Balance Training,Gait Training,Home Exercise Program,Joint Mobilizations,Manual Therapy, Neuromuscular Re-education, Patient/Caregiver Education, Self-Care/Home Management,Soft Tissue Mobilization,Taping, Therapeutic Activities, Therapeutic Exercises Modalities Cold Pack/Ice Massage,Electric Stimulation,Hot Packs Next Visit Focus/Plan Next Note Type Treatment Note Next Visit Plan continue to advance balance and functional strengthening, incorporate 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
--- NOTE | 2019-09-03 13:29 | PT.OTN ---
Current Diagnoses Spondylolisthesis, site unspecified (09/03/19) Difficulty in walking, not elsewhere classified (09/03/19) Abnormal posture (09/03/19) Weakness (09/03/19) Physical Therapy Treatment Note PT-OP-A Visit Information Start: 08/11/19 08:17 Freq: Status: Active Protocol: Document 09/03/19 09:01 EG (Rec: 09/03/19 09:47 EG [id number]) Out-Patient Physical Therapy Visit Information Visit Information Visit Type Treatment Note Visit Start Time 09:01 Visit Stop Time 09:43 Total Visit Minutes 42 Visit Number 6 Number of APPLICATION SUPPORT TECHNICIAN Visits 0 PT-OP-B Current Condition Start: 08/11/19 08:17 Freq: Status: Active Protocol: Document 08/11/19 08:17 LR (Rec: 08/11/19 09:09 [facility] [id number]) Current Condition History of Current Condition Onset Date 2009 Current Complaints LBP, dec L leg strength, dec balance History of Current Condition Pt reports in 2009 she had a MRI and was diagonosed with nerve issues and did PT. SHe had septic shock and kidney failure with further medical issues where [facility] was in the hospital and bed bound. Pt reports waking up with numbness in L thigh and weakness in leg. She did therapy to get walking again. Pt reports her LLE gives out from her and has been loosing her balance a lot recenlty especially since [facility] has had balance issues prior. SHe has been falling about 3 times over the past few months. REports LLE is weak and doesn' t hold her up. About 3 years ago, she had really bad SI joint pain and she did PT which was successful. Pt reports when she walks her back gets really tight in lumbar area but if she sits for 1 min then it relaxes. If she sits for too long, she ends up with leg weakness. She can sit for about 15 min but when she gets up, her legs feel weak. Pt has difficulty getting up/down from the floor . Pt reports she can only be up for about 5-10 min before L leg feels weak. 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 lot of photography which is difficult d/t balance and lack of endurance Prior Treatments and Tests PT a few times for back pain and leg weakness Treatment Goals Patient/Caregiver Goals dec falls so she doesn't fall anymore, improve balance, be able to walk more than 4-5 min without back pain requiring her to sit, build LLE strength , have greater ease with getting up off ground without using outside surface PT-OP-C Subjective Start: 08/11/19 08:17 Freq: Status: Active Protocol: Document 09/03/19 09:01 EG (Rec: 09/03/19 09:47 EG [id number]) OP-PT Subjective Patient Comments Patient Comments Patient feels as if PT has really helped her improve. She would love to keep working on balancing activities. She has noticed that gardening is a little better with her balance now to. PT-OP-D Balance Start: 09/01/19 10:06 Freq: Status: Active Protocol: Document 09/01/19 09:00 DLM (Rec: 09/01/19 10:19 DLM [id number]) Balance Tests Yee Balance Test Yee Balance Test Score 51/56 Yee Impairment Rating 1 to 19% Impaired (Score 45-55 ) PT-OP-G Mobility & Gait Start: 08/11/19 08:17 Freq: Status: Active Protocol: Document 08/11/19 08:17 [facility] (Rec: 08/11/19 15:14 [facility] [email or web address]) OP Gait Assessment Comments Gait Comments Pt amb with L lat shear of ribcage with dec overall push off and slight inc L lat lean PT-OP-J Posture/Palpation/Skin Start: 08/11/19 08:17 Freq: Status: Active Protocol: Document 08/11/19 08:17 [facility] (Rec: 08/11/19 15:14 [facility] [email or web address]) Posture Evaluation Comments Posture Comments fwd head & shoulders significantly, ribcage sheared L PT-OP-M Strength Start: 08/11/19 08:17 Freq: Status: Active Protocol: Document 08/11/19 08:17 [facility] (Rec: 08/11/19 09:09 [facility] [id number]) Hip Strength Hip Manual Muscle Testing Right Flexion (L2) 4 Good Abduction 3 Fair External Rotation 3+ Fair+ Internal Rotation 3+ Fair+ Left Flexion (L2) 3+ Fair+ Abduction 3 Fair External Rotation 3 Fair Internal Rotation 3 Fair Knee Strength Knee Manual Muscle Testing Right Flexion (S2) 4- Good- Extension (L3) 4 Good Left Flexion (S2) 3+ Fair+ Extension (L3) 3 Fair Ankle/Foot Strength Ankle and Foot Manual Muscle Testing Right Dorsiflexion (L4) 4 Good Plantarflexion (S1) 4- Good- Comments PF tested seated Left Dorsiflexion (L4) 3+ Fair+ Plantarflexion (S1) 3+ Fair+ PT-OP-Q Treatments Start: 08/11/19 08:17 Freq: Status: Active Protocol: Document 09/03/19 09:01 EG (Rec: 09/03/19 09:47 EG [id number]) Cardio Equipment Recumbent Stepper (Sci-Fit) Duration (Minutes) 7 Resistance 2.0 Seat Position 11 Other 1.0 mile Gym Equipment Shuttle Recovery Bilateral Squats Details Placed L2 band around legs to cue abduction during squat Resistance 100#, 112#, 112# Shuttle Recovery Platform Stable Reps/Time 15, 12, 12 Therapeutic Exercises Standing Exercises Squat at railing Standing Exercise Name Standing Squat Equipment Used Wall rail for support when lowering Reps/Minutes 10x Comments cue to keep knees out Neuro Re-Education Treatment Balance Activities Sit to Stands on Rocker Board Details Sit to Stands on Rocker Board Surface unstable Equipment chair for support, gait belt Reps/Duration 2x10 Comments Done with rocker board in A/P and L could not perform from standard arm chair - too low Done on large black mat table with adjustment to height marching steps with hold in SLS Details Marching steps with hold in SLS with one arm weighted Equipment 7# weight Reps/Duration 15 feet; 4x back and forth Comments Put arm in one hand on way down and in opposite hand on way back Tandem Details Tandem gait Surface firm and level Equipment in middle of room Comments gait belt on, LOB with appropriate step 2x Rocker Board Details Done on board and on foam pad Surface stable and unstable Equipment blue foam pad, rocker board Reps/Duration 30sec - 1 min each activity Comments Balance on A/P - stable Balance on A/P - foam pad Balance on A/P w/EC - stable and foam pad Balance on lateral - stable Balance on lateral - foam pad Balance on lateral w/EC - stable and foam pad PT-OP-T Assessment and Plan Start: 08/11/19 08:17 Freq: Status: Active Protocol: Document 09/03/19 09:01 EG (Rec: 09/03/19 12:50 EG [email or web address]) Physical Therapy Assessment Assessment Summary Assessment Patient did well with balance treatments today. She has increased trouble with eyes closed but has developed good stepping strategy. Might be helpful to try perturbations A /P/L to work on recovery. Patient did have trouble standing up from low surface and should continue LE strengthening. She is concerned about getting up from the ground so correct mechanics with this activity should be addressed in next appointment. Physical Therapy Plan Frequency and Duration Frequency of Treatment 2x/Week Duration of Treatment 2 months Plan of Care Start Date 08/11/19 Plan of Care End Date 10/10/19 Next Visit Focus/Plan Next Note Type Treatment Note Next Visit Plan continue to advance balance and functional strengthening, Begin perturbations to work on stepping strategy. Practice transfers to stand from floor. Oriana Boss DPT, supervised all treatment performed by, and agreed with the plan of care, as performed by Gogo Arizmendi, YEIMY.
--- NOTE | 2019-09-09 17:39 | PT.OTN ---
Current Diagnoses Spondylolisthesis, site unspecified (09/09/19) Difficulty in walking, not elsewhere classified (09/09/19) Abnormal posture (09/09/19) Weakness (09/09/19) Physical Therapy Treatment Note PT-OP-A Visit Information Start: 08/11/19 08:17 Freq: Status: Active Protocol: Document 09/09/19 12:19 SP (Rec: 09/09/19 13:12 SP [email or web address]) Out-Patient Physical Therapy Visit Information Visit Information Visit Type Treatment Note Visit Start Time 10:31 Visit Stop Time 11:15 Total Visit Minutes 44 Visit Number 7 Number of BIODIESEL PROCESSING TECHNICIAN Visits 0 PT-OP-B Current Condition Start: 08/11/19 08:17 Freq: Status: Active Protocol: Document 08/11/19 08:17 [facility] (Rec: 08/11/19 09:09 [facility] [id number]) Current Condition History of Current Condition Onset Date 2009 Current Complaints LBP, dec L leg strength, dec balance History of Current Condition Pt reports in 2009 she had a MRI and was diagonosed with nerve issues and did PT. SHe had septic shock and kidney failure with further medical issues where [facility] was in the hospital and bed bound. Pt reports waking up with numbness in L thigh and weakness in leg. She did therapy to get walking again. Pt reports her LLE gives out from her and has been loosing her balance a lot recenlty especially since [facility] has had balance issues prior. SHe has been falling about 3 times over the past few months. REports LLE is weak and doesn' t hold her up. About 3 years ago, she had really bad SI joint pain and she did PT which was successful. Pt reports when she walks her back gets really tight in lumbar area but if she sits for 1 min then it relaxes. If she sits for too long, she ends up with leg weakness. She can sit for about 15 min but when she gets up, her legs feel weak. Pt has difficulty getting up/down from the floor . Pt reports she can only be up for about 5-10 min before L leg feels weak. 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 which is difficult d/t balance and lack of endurance Prior Treatments and Tests PT a few times for back pain and leg weakness Treatment Goals Patient/Caregiver Goals dec falls so she doesn't fall anymore, improve balance, be able to walk more than 4-5 min without back pain requiring her to sit, build LLE strength , have greater ease with getting up off ground without using outside surface PT-OP-C Subjective Start: 08/11/19 08:17 Freq: Status: Active Protocol: Document 09/09/19 12:19 SP (Rec: 09/09/19 13:12 SP [email or web address]) OP-PT Subjective Patient Comments Patient Comments Pt wants to work on balance activities today. 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 PT-OP-D Balance Start: 09/01/19 10:06 Freq: Status: Active Protocol: Document 09/01/19 09:00 DLM (Rec: 09/01/19 10:19 DLM [id number]) Balance Tests Pat Balance Test Pat Balance Test Score 51/56 Pat Impairment Rating 1 to 19% Impaired (Score 45-55 ) PT-OP-G Mobility & Gait Start: 08/11/19 08:17 Freq: Status: Active Protocol: Document 08/11/19 08:17 [facility] (Rec: 08/11/19 15:14 [facility] [email or web address]) OP Gait Assessment Comments Gait Comments Pt amb with L lat shear of ribcage with dec overall push off and slight inc L lat lean PT-OP-J Posture/Palpation/Skin Start: 08/11/19 08:17 Freq: Status: Active Protocol: Document 08/11/19 08:17 [facility] (Rec: 08/11/19 15:14 [facility] [email or web address]) Posture Evaluation Comments Posture Comments fwd head & shoulders significantly, ribcage sheared L PT-OP-M Strength Start: 08/11/19 08:17 Freq: Status: Active Protocol: Document 08/11/19 08:17 [facility] (Rec: 08/11/19 09:09 [facility] [id number]) Hip Strength Hip Manual Muscle Testing Right Flexion (L2) 4 Good Abduction 3 Fair External Rotation 3+ Fair+ Internal Rotation 3+ Fair+ Left Flexion (L2) 3+ Fair+ Abduction 3 Fair External Rotation 3 Fair Internal Rotation 3 Fair Knee Strength Knee Manual Muscle Testing Right Flexion (S2) 4- Good- Extension (L3) 4 Good Left Flexion (S2) 3+ Fair+ Extension (L3) 3 Fair Ankle/Foot Strength Ankle and Foot Manual Muscle Testing Right Dorsiflexion (L4) 4 Good Plantarflexion (S1) 4- Good- Comments PF tested seated Left Dorsiflexion (L4) 3+ Fair+ Plantarflexion (S1) 3+ Fair+ PT-OP-Q Treatments Start: 08/11/19 08:17 Freq: Status: Active Protocol: Document 09/09/19 12:19 SP (Rec: 09/09/19 13:12 SP [email or web address]) Cardio Equipment Recumbent Stepper (Sci-Fit) Duration (Minutes) 6 Resistance 5 Seat Position 11 Other 1.0 mile Gym Equipment Shuttle Recovery Bilateral Squats Details cueing to have feet apart and avoid knees knocking Resistance 112 Shuttle Recovery Platform Stable Reps/Time 2x10 Shuttle Balance red clips Comments 1. feet apart 2. feet together 3. staggered stance all with head turns, alternating arm raises, arm circles. Therapeutic Exercises Standing Exercises hip ext Side bilateral Reps/Minutes 20 side step Side bilateral Resistance yellow band Reps/Minutes 15ftx4 Manual Therapy Treatment Soft Tissue Mobilization QL, paraspinals, ES Body Location L Mobilization Type Rolling,Strumming,Sustained Pressure Intensity/Depth Moderate Body Position Sidelying Neuro Re-Education Treatment Balance Activities balance with pertubations Comments feet apart, gentle pertubations fwd/bk side/side. marching steps with hold in SLS Details marching in place with SLS hold hurdles Details stepping over hurdles in parallel bars Reps/Duration 15ftx4 PT-OP-T Assessment and Plan Start: 08/11/19 08:17 Freq: Status: Active Protocol: Document 09/09/19 12:19 SP (Rec: 09/09/19 13:12 SP [email or web address]) Physical Therapy Assessment Goals strength Short Term Goal (STG) Pt will be indep with HEP. 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 LTG Duration 10/10/19 FGA Impairment 16/30 Short Term Goal (STG) Pt will improve to 20/30 STG Duration 09/09/19 Penitentiary Goal (LTG) Pt will improve to 25/30 to show dec fall risk. LTG Duration 10/10/19 oswestry Impairment 16/50 Penitentiary Goal (LTG) Pt will improve score to 6/50 in order to show improved functional ability LTG Duration 10/10/19 balance Impairment PAT 44, DGI 17 Short Term Goal (STG) Pt perkins core 50 on PAT to be less likely to fall in outdoors & community. STG Duration 09/09/19 Penitentiary Goal (LTG) Pt will improve DGI to 20/24 to be less likely to fall. LTG Duration 10/10/19 Assessment Summary Assessment Pt did well with balance activities this visit. She had most difficulty with staggered stance on shuttle balance and needed modA to prevent LOB. She would benefit from more obstacle navigation and incorporating different surfaces to step on. Pt completed all other balance and strengthening exercises with CG and minimal cueing for technique. Increased tissue density noted at L paraspinals . Improved following manual. Physical Therapy Plan Frequency and Duration Frequency of Treatment 2x/Week Duration of Treatment 2 months Plan of Care Start Date 08/11/19 Plan of Care End Date 10/10/19 Next Visit Focus/Plan Next Note Type Treatment Note Next Visit Plan advance balance activities, continue with functional movements, progress pertubation exercises.
--- NOTE | 2019-09-13 18:24 | PT.OTN ---
Current Diagnoses Spondylolisthesis, site unspecified (09/13/19) Difficulty in walking, not elsewhere classified (09/13/19) Abnormal posture (09/13/19) Weakness (09/13/19) Physical Therapy Treatment Note PT-OP-A Visit Information Start: 08/11/19 08:17 Freq: Status: Active Protocol: Document 09/13/19 15:46 SP (Rec: 09/13/19 17:11 SP [email or web address]) Out-Patient Physical Therapy Visit Information Visit Information Visit Type Discharge Summary Visit Start Time 14:25 Visit Stop Time 15:20 Total Visit Minutes 55 Visit Number 8 Number of APPLICATIONS SUPPORT SPECIALIST Visits 0 PT-OP-B Current Condition Start: 08/11/19 08:17 Freq: Status: Active Protocol: Document 08/11/19 08:17 [facility] (Rec: 08/11/19 09:09 [facility] [id number]) Current Condition History of Current Condition Onset Date 2009 Current Complaints LBP, dec L leg strength, dec balance History of Current Condition Pt reports in 2009 she had a MRI and was diagonosed with nerve issues and did PT. SHe had septic shock and kidney failure with further medical issues where [facility] was in the hospital and bed bound. Pt reports waking up with numbness in L thigh and weakness in leg. She did therapy to get walking again. Pt reports her LLE gives out from her and has been loosing her balance a lot recenlty especially since [facility] has had balance issues prior. SHe has been falling about 3 times over the past few months. REports LLE is weak and doesn' t hold her up. About 3 years ago, she had really bad SI joint pain and she did PT which was successful. Pt reports when she walks her back gets really tight in lumbar area but if she sits for 1 min then it relaxes. If she sits for too long, she ends up with leg weakness. She can sit for about 15 min but when she gets up, her legs feel weak. Pt has difficulty getting up/down from the floor . Pt reports she can only be up for about 5-10 min before L leg feels weak. 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 photography which is difficult d/t balance and lack of endurance Prior Treatments and Tests PT a few times for back pain and leg weakness Treatment Goals Patient/Caregiver Goals dec falls so she doesn't fall anymore, improve balance, be able to walk more than 4-5 min without back pain requiring her to sit, build LLE strength , have greater ease with getting up off ground without using outside surface PT-OP-C Subjective Start: 08/11/19 08:17 Freq: Status: Active Protocol: Document 09/13/19 15:46 SP (Rec: 09/13/19 17:11 SP [email or web address]) OP-PT Subjective Patient Comments Patient Comments Pt reports she feels stronger and her balance is getting better. She would like to be done with PT due to wanting to stay safe from COVID-19 and states she has been completing her HEP daily. Patient Questionnaires Oswestry Low Back Index Oswestry Score 9/50 Oswestry Impairment 1 to 19% Impaired (Score 1-19) PT-OP-D Balance Start: 09/01/19 10:06 Freq: Status: Active Protocol: Document 09/01/19 09:00 DLM (Rec: 09/01/19 10:19 DLM [id number]) Balance Tests Pat Balance Test Pat Balance Test Score 51/56 Pat Impairment Rating 1 to 19% Impaired (Score 45-55 ) PT-OP-E Functional Tests Start: 09/13/19 17:35 Freq: Status: Active Protocol: Document 09/13/19 15:46 SP (Rec: 09/13/19 17:37 SP [email or web address]) Functional Tests Dynamic Gait Index (DGI) Score 21/24 DGI Impairment Rating 1 to <20% Impaired (Score 20- 23) Functional Gait Assessment Score 23/30 Functional Gait Assessment Impairment 20 to <40% Impaired (Score 19- Rating 24) PT-OP-G Mobility & Gait Start: 08/11/19 08:17 Freq: Status: Active Protocol: Document 08/11/19 08:17 [facility] (Rec: 08/11/19 15:14 [facility] [email or web address]) OP Gait Assessment Comments Gait Comments Pt amb with L lat shear of ribcage with dec overall push off and slight inc L lat lean PT-OP-J Posture/Palpation/Skin Start: 08/11/19 08:17 Freq: Status: Active Protocol: Document 09/13/19 15:46 SP (Rec: 09/13/19 17:38 SP [email or web address]) Posture Evaluation Andres Postural Classification System Lumbar Protective Mechanism Left AP 0 Lumbar Protective Mechanism Right AP 1 Lumbar Protective Mechanism Left PA 1 Lumbar Protective Mechanism Right PA 2 PT-OP-M Strength Start: 08/11/19 08:17 Freq: Status: Active Protocol: Document 09/13/19 15:46 SP (Rec: 09/13/19 17:11 SP [email or web address]) Hip Strength Hip Manual Muscle Testing Right Flexion (L2) 4 Good Extension (S1) 3+ Fair+ Abduction 4- Good- External Rotation 4 Good Internal Rotation 4 Good Left Flexion (L2) 4- Good- Extension (S1) 3 Fair Abduction 3+ Fair+ External Rotation 4- Good- Internal Rotation 4- Good- Knee Strength Knee Manual Muscle Testing Right Flexion (S2) 4 Good Extension (L3) 4 Good Left Flexion (S2) 4- Good- Extension (L3) 4- Good- PT-OP-Q Treatments Start: 08/11/19 08:17 Freq: Status: Active Protocol: Document 09/13/19 15:46 SP (Rec: 09/13/19 17:11 SP [email or web address]) Cardio Equipment Recumbent Stepper (Sci-Fit) Duration (Minutes) 6 Resistance 5 Therapeutic Exercises Supine Exercises SLR Side bilateral Reps/Minutes 10 Sidelying Exercises abd Side bilateral Reps/Minutes 3x5 Comments cueing to keep hips aligned, keep knee straight. Standing Exercises sit to stand Reps/Minutes 10 Comments without UE support backward walk Side bilateral Resistance yellow band Reps/Minutes 15ftx2 forward walk Side bilateral Resistance yellow band Reps/Minutes 15ftx4 side step Side bilateral Resistance yellow band Reps/Minutes 15ftx4 Manual Therapy Treatment Soft Tissue Mobilization QL, paraspinals, ES Body Location L Mobilization Type Rolling,Strumming,Sustained Pressure Intensity/Depth Moderate Body Position Sidelying Neuro Re-Education Treatment Balance Activities balance on stable surface Comments 1. feet together 2. staggered stance 3. repeat on tpads eyes closed, head turns, alternating arm swings, arm circles. PT-OP-T Assessment and Plan Start: 08/11/19 08:17 Freq: Status: Active Protocol: Document 09/13/19 15:46 SP (Rec: 09/13/19 17:11 SP [email or web address]) Physical Therapy Assessment Goals strength Short Term Goal (STG) Pt will be indep with HEP. STG Duration achieved Track Helper Goal (LTG) Pt will score at least 4+/5 on LE strength and 3/5 on LPM in order to allow pt to do typical tasks including being safe on her boat. 09/13/19 - improvement with strength however did not reach 4+/5 with each test, L side weaker than R. LTG Duration 10/10/19 FGA Impairment 16/30 Short Term Goal (STG) Pt will improve to 20/30 STG Duration achieved Track Helper Goal (LTG) Pt will improve to 25/30 to show dec fall risk. 09/13/19 - improvement to 23/30 , difficulty with ambulating with eyes closed and tandem walking. LTG Duration 10/10/19 oswestry Impairment 16/50 Track Helper Goal (LTG) Pt will improve score to 6/50 in order to show improved functional ability LTG Duration 09/13/19 - score improved to 9/ 50 balance Impairment PAT 44, DGI 17 Short Term Goal (STG) Pt perkins core 50 on PAT to be less likely to fall in outdoors & community. STG Duration achieved Assisted Goal (LTG) Pt will improve DGI to 20/24 to be less likely to fall. LTG Duration achieved Assessment Summary Assessment Pt did well with balance activities and strengthening exercises were progressed. Pt is able to demonstrate HEP with minimal cueing indicating compliance at home. She scored higher on both FGA and DGI decreasing fall risk. Pt showed improvement in LE strength however will benefit from continueing HEP at home in order for LE strength to be equal. Pt able to complete 10x sit to stand without UE support. Physical Therapy Plan Discharge Physical Therapy Discharge Reasons Goals Met Discharge Comments Pt improved with balance testing static/dynamic. Improvement in LE strength testing. Ability to demonstrate HEP. Able to progress all exercises.
== END 2019-09-15 08:36 ==
LOC: PHYS 14:30
PROVIDERS: PCP Internal Medicine; Referring Provider Family Medicine; Visit Provider Family Medicine
DX: M43.10 Spondylolisthesis, site unspecified (principal); R29.3 Abnormal posture; R53.1 Weakness; R26.2 Difficulty in walking, not elsewhere classified
CPT/HCPCS: 97110; 97112; 97140; 97162

== ENCOUNTER 2019-12-27 18:27 | Inpatient (IN) | payer MEDICARE, OTHER, SELFPAY ==
[2019-12-27] VITALS (14 sets, daily range): BP systolic 140–144; BP diastolic 61–86; PULSE 83–91; RESP 17–20; TEMP 36.9; O2SAT 97–100; BMI 24.0
--- NOTE | 2019-12-27 18:53 | ED_ITS ---
HPI - Skin/Abscess/Foreign Bdy General Chief complaint: Skin/Abscess/Foreign Body Stated complaint: Swelling,Redness,Fever in Right Ring Finger Time Seen by Provider: 12/27/19 18:43 Source: patient and family Mode of arrival: Ambulatory History of Present Illness HPI narrative: Patient here with , complains of right ring finger pain since 2:00 p.m. today. No known injury. No skin injury. Complains of diffuse circumferential erythema edema and pain of the right ring finger. No history of gout. Able to nearly fully flex the finger but limited due to edema swelling. Stable to fully extend the finger at the MCP PIP and D IP joints. Light touch intact. Denies any recent illness fever chills cough cold congestion Related Data Home Medications Medication Instructions Recorded Confirmed cholecalciferol (vitamin D3) 50 2,000 unit PO DAILY 01/11/19 12/28/19 mcg (2,000 unit) capsule multivitamin 1 tab PO DAILY 01/11/19 12/28/19 dexamethasone 0.5 mg/5 mL oral 0.5 mg PO TID 04/12/19 12/28/19 solution lutein 25 mg-zeaxanthin 5 mg 25 cap PO DAILY 05/04/19 12/28/19 capsule nitroglycerin 0.4 mg sublingual 0.4 mg SUBLINGUAL PRN PRN tab 08/31/19 12/28/19 tablet rosuvastatin 5 mg tablet See Rx Instructions .ROUTE 08/31/19 12/28/19 .COMPLEX tab Previous Rx's Medication Instructions Recorded diclofenac sodium 1 % topical gel 2 gram TOP QID #100 gram 04/12/19 carvedilol 25 mg tablet 25 mg PO BID #180 tab 09/03/19 levothyroxine 50 mcg tablet 50 mcg PO DAILY #90 tab 09/03/19 losartan 50 mg tablet 50 mg PO DAILY #90 tab 09/03/19 methocarbamol 750 mg tablet 750 mg PO TID PRN #270 tab 09/03/19 omeprazole 20 mg tablet,delayed 20 mg PO DAILY #90 tab 09/03/19 release warfarin 4 mg tablet 4 - 6 mg PO DAILY #135 tab 09/03/19 Allergies Allergy/AdvReac Type Severity Reaction Status Date / Time ampicillin Allergy Intermediate Rash Verified 08/04/19 08:13 Penicillins Allergy Intermediate Was told Verified 08/04/19 08:13 not to take due to Ampicillin reaction alendronate sodium AdvReac Severe Esophageal Verified 08/04/19 08:13 [From Fosamax] pain, almost felt like a heart attack azithromycin AdvReac Intermediate Vomiting Verified 08/04/19 08:13 w/in 10 mins of taking adhesive tape AdvReac Mild Blister/Skin Verified 08/04/19 08:13 came off. Review of Systems Review of Systems Narrative: GENERAL: Denies chills, fatigue, malaise, fever, sweats. HEENT: Denies sinus pain, ear pain, sore throat, difficulty swallowing, dizziness. RESPIRATORY: Denies dyspnea, cough, wheezing, hemoptysis, sputum. CARDIOVASCULAR: Denies chest pain, palpitations, orthopnea, edema, GASTROINTESTINAL: Denies nausea, vomiting, abdominal pain, diarrhea, constipation, melena. : Denies dysuria, frequency, incontinence, hematuria, urinary retention. MUSCULOSKELETAL: Complains of finger pain, no numbness tingling weakness SKIN: Denies rash, skin lesions, or other NEUROLOGIC: Denies weakness, headache, numbness, change in speech, confusion, seizures, incoordination. PSYCHIATRIC: No concerning psychosocial issues. ROS Unobtainable: All systems reviewed & are unremarkable except as noted in HPI and below Patient History Medical History Abnormal chest xray (Inactive ~2010) Allergies (Chronic ~1999) Cardiac arrhythmia (Chronic ~2010) Cerumen impaction (Acute) Chicken pox (Resolved ~1949) Colon polyps (Chronic ~2016) Deep vein thrombosis (Chronic ~2010) Diverticular disease (Chronic ~2010) Essential hypertension (Chronic ~2004) GERD (gastroesophageal reflux disease) (Chronic ~2004) Headache (Chronic) Hearing loss (Chronic ~2008) Heart failure (Chronic ~2010) Heart stopped beating (Resolved ~2010) History of pulmonary embolism (Chronic ~2010) History of respiratory disorder (Chronic ~2010) Hypothyroid (Chronic) 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 ~1966) 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) Measles (Resolved ~1949) Mumps (Resolved) Osteopenia (Chronic ~2004) Paroxysmal A-fib (Chronic ~2010) Pertussis (Resolved ~1954) Rheumatoid arthritis (Chronic) Rib fractures (Resolved) Rubella (Resolved ~1949) Scoliosis (Chronic ~1954) Sinusitis (Acute) Spondylisthesis (Acute) TGA (transient global amnesia) (Chronic ~2014) Vision disorder (Chronic) Surgical History Anesthesia (Resolved) Cataracts, bilateral (Resolved ~2013) History of colectomy (Resolved ~2010) History of dilation and curettage (Resolved) History of kidney surgery (Resolved ~2010) History of surgery (Resolved ~1966) History of tonsillectomy and adenoidectomy (Resolved) History of tubal ligation (Resolved) S/P devora (Resolved ~1992) S/P exploratory laparotomy (Resolved) S/P partial colectomy (Resolved ~2010) Strabismus (Resolved) Family History Father Stroke Mother No problems noted. Brother Hypertension Sister Back problem Grandfather Cancer Grandmother Diabetes mellitus Grandfather Stroke Grandmother Stroke Social History household members: spouse Smoking Status: Never smoker Smoking Status: Never smoker Exam Narrative Exam Narrative: GENERAL: patient appears stated age. Well-nourished, well- developed patient, in no distress, not toxic HEAD: Atraumatic. Normocephalic. NECK: Trachea midline. Non tender CARDIOVASCULAR: Regular rate and rhythm without murmurs, gallops, or rubs. RESPIRATORY: Clear to auscultation. Breath sounds equal bilaterally. No wheezes, rales, or rhonchi. GASTROINTESTINAL: Abdomen soft, non-tender, nondistended. EXTREMITIES: Examination of the right hand, there is isolated erythema edema to the ring finger circumferentially extending from the MCP to the tip. Skin is intact. No palpable abscess. Patient is able to fully extends the finger. Diffuse tenderness at the PIP joint. Nearly able to fully flex at the MCP PIP and D IP joint but limited due to swelling. Skin is intact. Light touch intact to finger tip. No palpable abscess. No proximal red streaking. Brisk cap refill. Fingers warm and soft NEURO: AOx3. Initial Vital Signs Initial Vital Signs: Vital Signs Temperature 98.4 F 12/27/19 18:44 Pulse Rate 83 12/27/19 18:44 Respiratory Rate 12/27/19 18:44 Blood Pressure 144/86 H 12/27/19 18:44 Pulse Oximetry 97 12/27/19 18:44 Course Course Decision to Admit Date: 12/27/19 Decision to Admit time: 20:48 Orders Ordered: ED Orders 12/27/19 18:56 XR finger RT min 2V Stat 12/27/19 19:25 C-Reactive Protein Quant Stat Complete Blood Count AUTO DIFF Stat Comprehensive Metabolic Panel Stat Erythrocyte Sedimentation Rate Stat Uric Acid Stat Acetaminophen (Tylenol) 650 mg PO Q6HR PRN PRN Reason: Fever/Mild Pain (1-3) Carvedilol (Coreg) 25 mg PO BID [facility] Last Admin: 12/28/19 00:24 Dose: 25 mg Documented by: OLEKSANDR Ceftriaxone Sodium/Dextrose (Rocephin) 1 gm in 50 mls @ 100 mls/hr IV Q24H [facility] Last Admin: 12/28/19 00:26 Dose: 100 mls/hr Documented by: OLEKSANDR Vancomycin HCl (Vancomycin) 1,000 mg in 200 mls @ 167 mls/hr IV Q18H [facility] Levothyroxine Sodium (Synthroid) 50 mcg PO QACBREAK [facility] Losartan Potassium (Cozaar) 25 mg PO BEDTIME [facility] Naloxone HCl (Narcan) 0.2 mg IV Q2MIN PRN PRN Reason: Opiate Reversal Ondansetron HCl (Zofran) 4 mg IV Q6HR PRN PRN Reason: Nausea And Vomiting Pantoprazole Sodium (Protonix) 20 mg PO DAILY [facility] Rosuvastatin Calcium (Crestor) 20 mg PO BEDTIME [facility] Vancomycin HCl (Vancomycin Per Pharmacy) 1 request [facility] NOW ONE Stop: 12/28/19 21:50 Warfarin Sodium (Coumadin) 6 mg PO TuTh@1700 [facility] Warfarin Sodium (Coumadin) 4 mg PO SuMoWeFrSa@1700 [facility] Discontinued Medications Vancomycin HCl (Vancomycin) 1,000 mg in 200 mls @ 200 mls/hr IV NOW ONE Stop: 12/27/19 21:20 Last Infusion: 12/27/19 22:37 Dose: 0 mls/hr Documented by: Admin: 12/27/19 21:10 Dose: 200 mls/hr Documented by: GLORIA Losartan Potassium (Cozaar) 50 mg PO DAILY [facility] Losartan Potassium (Cozaar) 50 mg PO DAILY [facility] Losartan Potassium (Cozaar) 25 mg PO DAILY [facility] Last Admin: 12/28/19 00:25 Dose: 25 mg Documented by: OLEKSANDR Warfarin Sodium (Coumadin) 4 mg PO 1700 [facility] Last Admin: 12/28/19 00:05 Dose: Not Given Documented by: OLEKSANDR Warfarin Sodium (Coumadin) 4 mg PO SuMoWeFrSa@1700 [facility] Warfarin Sodium (Coumadin) 4 mg PO SuMoWeFrSa@1700 [facility] Warfarin Sodium (Coumadin) 4 mg PO NOW ONE Stop: 12/28/19 00:07 Last Admin: 12/28/19 00:41 Dose: 4 mg Documented by: OLEKSANDR Reevaluation(s) Reevaluation #1: No new complaints. No changes on exam of the finger. Time: 20:38 Consultations Consultation #1: Spoke with Orthopedics Dr. Gatica, agrees patient be admitted, she will see patient in the morning here. Admit to hospitalistevi with vancomycin Time: 20:38 Consultation #2: s/w hospitalist group, archie hoffman, will admit Time: 20:49 Vital Signs Vital signs: Vital Signs - 8 hr 12/27/19 18:44 12/27/19 19:29 12/27/19 19:30 Temperature 98.4 F Pulse Rate 83 90 88 Respiratory Rate 20 Blood Pressure 144/86 H Pulse Oximetry 97 99 99 12/27/19 19:40 12/27/19 19:50 12/27/19 20:00 Temperature Pulse Rate 91 H 89 87 Respiratory Rate Blood Pressure Pulse Oximetry 97 100 99 12/27/19 20:10 12/27/19 20:20 12/27/19 20:30 Temperature Pulse Rate 88 86 91 H Respiratory Rate Blood Pressure Pulse Oximetry 99 99 98 12/27/19 20:40 Temperature Pulse Rate 89 Respiratory Rate Blood Pressure Pulse Oximetry 99 MDM - Skin/Abscess/Foreign Bdy Lab Data Result diagrams: 12/27/19 19:25 12/27/19 19:25 Labs: Lab Results 12/27/19 12/27/19 12/27/19 Range/Units 19:25 19:25 19:28 WBC 9.4 (4.5-11.0) X10^3/uL RBC 3.87 L (4.0-5.2) X10^6/uL Hgb 12.1 (12.0-16.0) g/dL Hct 35.4 L (36-46) % MCV 91.6 (80-100) fL MCH 31.4 (26-34) PG MCHC 34.3 (30-36) % RDW 13.3 (11.6-14.8) % Plt Count 161 (150-400) X10^3/uL Neut % (Auto) 82.6 H (50-75) % Lymph % (Auto) 5.7 L (25-40) % [place] % (Auto) 8.4 (3-14) % Eos % (Auto) 1.2 L (2-4) % Baso % (Auto) 2.1 H (0-2) % Neut # (Auto) 7700 H (8050-3744) /uL Lymph # (Auto) 500 L (7433-8350) /uL [place] # (Auto) 800 (0-900) /uL Eos # (Auto) 100 (0-450) /uL Baso # (Auto) 200 H (0-100) /uL ESR 17 (0-20) MM/HR PT 28.9 H (10.1-12.7) SECONDS INR 2.5 H (0.9-1.3) APTT 37 H (26.4-36.2) SECONDS Sodium 135 L (137-145) mmol/L Potassium 4.3 (3.4-5.1) mmol/L Chloride 98 (98-107) mmol/L Carbon Dioxide 29 (22-32) mmol/L BUN 21 H (7-17) mg/dL Creatinine 0.68 (0.52-1.04) mg/dL Estimated GFR > 60.0 (>60) mL/min BUN/Creatinine Ratio 30.9 H (6-22) Glucose 152 H (80-110) mg/dL Uric Acid 2.5 (2.5-6.2) mg/dL Calcium 9.4 (8.4-10.2) mg/dL Total Bilirubin 0.5 (0.2-1.3) mg/dL AST 38 H (14-36) IU/L ALT 28 (<35) IU/L Alkaline Phosphatase 96 (38-126) U/L C-Reactive Protein 0.7 (<1.0) mg/dL Total Protein 7.1 (6.3-8.2) g/dL Albumin 4.3 (3.5-5.0) g/dL Globulin 2.8 (1.7-4.1) g/dL Albumin/Globulin Ratio 1.5 (1.0-2.8) Imaging Data Extremity x-ray #1: Radiologist's Impression: [address] [address] XRay Report Signed Patient: Porsche Branham RMR#: [id number] : 3Acct:[id number] Age/Sex: 74 / FDate of Service: 12/27/19 Loc: ED Accession Number: [id number] Procedure: XR finger RT min 2V Ordering Provider: Ha Roberto MD PROCEDURE: XR FINGER RT MIN 2V INDICATIONS: ring finger pain/swelling TECHNIQUE: AP hand, 2 views of the fourth finger(s) acquired. COMPARISON: None. FINDINGS: Bones: No fractures or dislocations. No suspicious bony lesions. Moderate first carpal metacarpal joint degeneration. Soft tissues: No suspicious soft tissue calcifications. IMPRESSION: No acute osseous abnormality. Dictated by: Christiano Mcnamara M.D. on 12/27/2019 at 19:19 Approved by: Christiano Mcnamara M.D. on 12/27/2019 at 19:20 [facility] Narrative Medical decision making narrative: Early-onset with acute and rapid progression since this afternoon. Could be early tenosynovitis, patient agrees for admission for possible tenosynovitis with antibiotic treatment for observation overnight. Discharge Plan Departure Patient Disposition: Admitted As Inpatient Clinical Impression: Tenosynovitis of finger Discharge Date/Time: 12/27/19 22:37 Referrals: Jonathan Johnston DO [Primary Care Provider] - Admit Date/Time: 12/27/19 21:32 Admit Provider: Anaid Hoffman
--- NOTE | 2019-12-27 18:56 | DI.RAD.S_ITS ---
PROCEDURE: XR FINGER RT MIN 2V INDICATIONS: ring finger pain/swelling TECHNIQUE: AP hand, 2 views of the fourth finger(s) acquired. COMPARISON: None. FINDINGS: Bones: No fractures or dislocations. No suspicious bony lesions. Moderate first carpal metacarpal joint degeneration. Soft tissues: No suspicious soft tissue calcifications. IMPRESSION: No acute osseous abnormality. Dictated by: Christiano Mcnamara M.D. on 12/27/2019 at 19:19 Approved by: Christiano Mcnamara M.D. on 12/27/2019 at 19:20
[2019-12-27 19:31] LABS: Add Manual Diff / Slide Review NO; Basophils Absolute Auto 200 /uL (0-100); Basophils Percent Auto 2.1 % (0-2); Eosinophils Absolute Auto 100 /uL (0-450); Eosinophils Percent Auto 1.2 % (2-4); Hematocrit 35.4 % (36-46); Hemoglobin 12.1 g/dL (12.0-16.0); Lymphocytes Absolute Auto 500 /uL (1100-4500); Lymphocytes Percent Auto 5.7 % (25-40); Mean Corpuscular HGB Conc 34.3 % (30-36); Mean Corpuscular Hemoglobin 31.4 PG (26-34); Mean Corpuscular Volume 91.6 fL (80-100); Monocytes Absolute Auto 800 /uL (0-900); Monocytes Percent Auto 8.4 % (3-14); Neutrophils Absolute Auto 7700 /uL (1500-7000); Neutrophils Percent Auto 82.6 % (50-75); Platelet Count 161 X10^3/uL (150-400); Red Blood Cell Count 3.87 X10^6/uL (4.0-5.2); Red Cell Distribution Width 13.3 % (11.6-14.8); White Blood Cell Count 9.4 X10^3/uL (4.5-11.0)
[2019-12-27 19:45] LABS: Alanine Aminotransferase 28 IU/L (<35); Albumin 4.3 g/dL (3.5-5.0); Albumin Globulin Ratio 1.5 (1.0-2.8); Alkaline Phosphatase 96 U/L (38-126); Aspartate Aminotransferase 38 IU/L (14-36); BUN Creatinine Ratio 30.9 (6-22); Bilirubin Total 0.5 mg/dL (0.2-1.3); Blood Urea Nitrogen 21 mg/dL (7-17); C-Reactive Protein Quant 0.7 mg/dL (<1.0); Calcium 9.4 mg/dL (8.4-10.2); Carbon Dioxide 29 mmol/L (22-32); Chloride 98 mmol/L (98-107); Estimated Glomerular Filt Rate > 60.0 mL/min (>60); Globulin 2.8 g/dL (1.7-4.1); Glucose 152 mg/dL (80-110); HEMOLYSIS 16 (0-50); Potassium 4.3 mmol/L (3.4-5.1); Sodium 135 mmol/L (137-145); Total Protein 7.1 g/dL (6.3-8.2); Uric Acid 2.5 mg/dL (2.5-6.2)
[2019-12-27 19:51] LABS: Erythrocyte Sedimentation Rate 17 MM/HR (0-20)
[2019-12-27] MEDS: VANCOMYCIN 1,000 MG/200 ML PIGGYBACK 200 MG IV (21:10)
[2019-12-27 22:14] LABS: INR 2.5 (0.9-1.3); Prothrombin Time 28.9 SECONDS (10.1-12.7)
[2019-12-27 22:17] LABS: PTT Partial Thromboplastin Tim 37 SECONDS (26.4-36.2)
--- NOTE | 2019-12-27 22:37 | PC.NURSE ---
Vancomycin continued upon transfer
[2019-12-27 23:09] LABS: COVID19 -Nasal RAPID Negative (Negative)
[2019-12-28] VITALS (12 sets, daily range): BP systolic 99–140; BP diastolic 55–76; PULSE 69–89; RESP 16–18; TEMP 35.7–37.6; O2SAT 94–98
--- NOTE | 2019-12-28 00:11 | P.HP_ITS ---
History of Present Illness History of Present Illness Date Patient Seen: 12/27/19 Time Patient Seen: 22:00 Chief complaint: Swelling,Redness,Fever in Right Ring Finger Narrative: Porsche Cardoso is a pleasant 74 year old female who was in her usual state of health when she noticed that she developed pain in her right ring finger. She was gardening the day before and had thought possibly that she had stung herself with a thorn because the tip of her finger was quite painful. On the next day of admission she notice that the whole joint was was swollen and painful and decided to come into the emergency department. Dr. Bustamante saw the patient, requested that the hospitalist service admit her, start her on vancomycin and would see the patient in the morning. The patient did have a fever of 100 measured at home and when she arrived at the emergency department was 99. She states that she had chills. She has a chronic cough which she attributes to al lergies, she did have diarrhea yesterday she denies shortness of breath, chest pain, abdominal pain, dysuria, body aches and pains other than the affected finger, has a history of scalp psoriasis that is well controlled with the vitamin-D, and has previously had 2 episodes of transient global amnesia. 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 X-ray of her hand was negative for any suspicion of osteomyelitis or fracture. WBC was 9.4, RBC 3.87, hemoglobin 12.1, hematocrit 35.4, platelet count 161, her INR is the therapeutic at 2.5, sodium 135, potassium 4.3, chloride 98, CO2 29, BUN 21, creatinine 0.68, GFR greater than 60, glucose was 152, liver enzymes were within normal limits, and COVID-19 test was negative Patient History Medical History Abnormal chest xray (Inactive ~2010) Allergies (Chronic ~1999) Cardiac arrhythmia (Chronic ~2010) Cerumen impaction (Acute) Chicken pox (Resolved ~1949) Colon polyps (Chronic ~2016) Deep vein thrombosis (Chronic ~2010) Diverticular disease (Chronic ~2010) Essential hypertension (Chronic ~2004) GERD (gastroesophageal reflux disease) (Chronic ~2004) Headache (Chronic) Hearing loss (Chronic ~2008) Heart failure (Chronic ~2010) Heart stopped beating (Resolved ~2010) History of pulmonary embolism (Chronic ~2010) History of respiratory disorder (Chronic ~2010) Hypothyroid (Chronic) 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 ~1966) 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) Measles (Resolved ~1949) Mumps (Resolved) Osteopenia (Chronic ~2004) Paroxysmal A-fib (Chronic ~2010) Pertussis (Resolved ~1954) Rheumatoid arthritis (Chronic) Rib fractures (Resolved) Rubella (Resolved ~1949) Scoliosis (Chronic ~1954) Sinusitis (Acute) Spondylisthesis (Acute) TGA (transient global amnesia) (Chronic ~2014) Vision disorder (Chronic) Surgical History Anesthesia (Resolved) Cataracts, bilateral (Resolved ~2013) History of colectomy (Resolved ~2010) History of dilation and curettage (Resolved) History of kidney surgery (Resolved ~2010) History of surgery (Resolved ~1966) History of tonsillectomy and adenoidectomy (Resolved) History of tubal ligation (Resolved) S/P devora (Resolved ~1992) S/P exploratory laparotomy (Resolved) S/P partial colectomy (Resolved ~2010) Strabismus (Resolved) Family & Social History Family History Father Stroke Mother No problems noted. Brother Hypertension Sister Back problem Grandfather Cancer Grandmother Diabetes mellitus Grandfather Stroke Grandmother Stroke Social History: household members spouse Prior Living Arrangements House Safety & Behavioral: Feels Safe in Current Yes Environment Been Physically Hurt or No Threatened By a Person Suicidal Ideation Description None Tobacco & Substance use: Smoking Status Never smoker Meds Home Medications and Allergies Home Medications Medication Instructions Recorded Confirmed Type cholecalciferol (vitamin D3) 50 2,000 unit PO DAILY 01/11/19 12/28/19 History mcg (2,000 unit) capsule multivitamin 1 tab PO DAILY 01/11/19 12/28/19 History dexamethasone 0.5 mg/5 mL oral 0.5 mg PO TID 04/12/19 12/28/19 History solution diclofenac sodium 1 % topical gel 2 gram TOP QID #100 gram 04/12/19 12/28/19 Rx lutein 25 mg-zeaxanthin 5 mg 25 cap PO DAILY 05/04/19 12/28/19 History capsule nitroglycerin 0.4 mg sublingual 0.4 mg SUBLINGUAL PRN PRN tab 08/31/19 12/28/19 History tablet rosuvastatin 5 mg tablet See Rx Instructions .ROUTE 08/31/19 12/28/19 History .COMPLEX tab carvedilol 25 mg tablet 25 mg PO BID #180 tab 09/03/19 12/28/19 Rx levothyroxine 50 mcg tablet 50 mcg PO DAILY #90 tab 09/03/19 12/28/19 Rx losartan 50 mg tablet 50 mg PO DAILY #90 tab 09/03/19 12/28/19 Rx methocarbamol 750 mg tablet 750 mg PO TID PRN #270 tab 09/03/19 12/28/19 Rx omeprazole 20 mg tablet,delayed 20 mg PO DAILY #90 tab 09/03/19 12/28/19 Rx release warfarin 4 mg tablet 4 - 6 mg PO DAILY #135 tab 09/03/19 12/28/19 Rx Allergies Allergy/AdvReac Type Severity Reaction Status Date / Time ampicillin Allergy Intermediate Rash Verified 08/04/19 08:13 Penicillins Allergy Intermediate Was told Verified 08/04/19 08:13 not to take due to Ampicillin reaction alendronate sodium AdvReac Severe Esophageal Verified 08/04/19 08:13 [From Fosamax] pain, almost felt like a heart attack azithromycin AdvReac Intermediate Vomiting Verified 08/04/19 08:13 w/in 10 mins of taking adhesive tape AdvReac Mild Blister/Skin Verified 08/04/19 08:13 came off. Review of Systems Review of Systems ROS: Yes All systems reviewed with the patient and are negative except as otherwise documented Exam Vital Signs (past 8 hours): - 12/27/19 18:44 12/27/19 19:29 12/27/19 19:30 Temperature 98.4 F Pulse Rate 83 90 88 Respiratory Rate 20 Blood Pressure 144/86 H Pulse Oximetry 97 99 99 12/27/19 19:40 12/27/19 19:50 12/27/19 20:00 Temperature Pulse Rate 91 H 89 87 Respiratory Rate Blood Pressure Pulse Oximetry 97 100 99 12/27/19 20:10 12/27/19 20:20 12/27/19 20:30 Temperature Pulse Rate 88 86 91 H Respiratory Rate Blood Pressure Pulse Oximetry 99 99 98 12/27/19 20:40 12/27/19 22:07 12/27/19 22:08 Temperature Pulse Rate 89 89 89 Respiratory Rate Blood Pressure 140/61 Pulse Oximetry 99 98 98 12/27/19 22:10 12/27/19 22:15 Temperature Pulse Rate 89 89 Respiratory Rate 17 Blood Pressure 140/61 Pulse Oximetry 98 97 Oxygen Delivery Method Room Air Narrative Exam Narrative: Vitals: Temperature was 98.2?, blood pressure 130/76, heart rate 80, respirations 16, oxygen saturation 96% on room air, she is 69.5 kilos with a BMI of 24. Gen: Alert, oriented, well-developed 74 y.o. female, NAD HEENT: normocephalic, atraumatic, conjunctiva clear, sclera non-icteric, oral mucosa pink and moist Neck: supple, full ROM, no JVD, trachea is midline Resp: Lungs CTA, non-labored breathing CV: RRR, no murmur or rubs Abd: soft, non-tender, normoactive BTs Skin: no lesions or rashes, dry and intact Neuro: Alert and oriented X 4 w/no focal deficits. Speech clear and coherent. Extremities: Left ring finger is erythematous and swollen up to the 2nd MCP with limited range flexion and extension. Moves all 4 extremities, is ambulatory, negative Leo?s sign Psyche: normal mood and affect. Objective Labs Result Diagrams: 12/27/19 19:25 12/27/19 19:25 Labs: Laboratory Results - last 24 hr 12/27/19 12/27/19 12/27/19 19:25 19:25 19:28 WBC 9.4 RBC 3.87 L Hgb 12.1 Hct 35.4 L MCV 91.6 MCH 31.4 MCHC 34.3 RDW 13.3 Plt Count 161 Neut % (Auto) 82.6 H Lymph % (Auto) 5.7 L [place] % (Auto) 8.4 Eos % (Auto) 1.2 L Baso % (Auto) 2.1 H Neut # (Auto) 7700 H Lymph # (Auto) 500 L [place] # (Auto) 800 Eos # (Auto) 100 Baso # (Auto) 200 H ESR 17 PT 28.9 H INR 2.5 H APTT 37 H Sodium 135 L Potassium 4.3 Chloride 98 Carbon Dioxide 29 BUN 21 H Creatinine 0.68 Estimated GFR > 60.0 BUN/Creatinine Ratio 30.9 H Glucose 152 H Uric Acid 2.5 Calcium 9.4 Total Bilirubin 0.5 AST 38 H ALT 28 Alkaline Phosphatase 96 C-Reactive Protein 0.7 Total Protein 7.1 Albumin 4.3 Globulin 2.8 Albumin/Globulin Ratio 1.5 COVID-19 PCR 12/27/19 22:10 WBC RBC Hgb Hct MCV MCH MCHC RDW Plt Count Neut % (Auto) Lymph % (Auto) [place] % (Auto) Eos % (Auto) Baso % (Auto) Neut # (Auto) Lymph # (Auto) [place] # (Auto) Eos # (Auto) Baso # (Auto) ESR PT INR APTT Sodium Potassium Chloride Carbon Dioxide BUN Creatinine Estimated GFR BUN/Creatinine Ratio Glucose Uric Acid Calcium Total Bilirubin AST ALT Alkaline Phosphatase C-Reactive Protein Total Protein Albumin Globulin Albumin/Globulin Ratio COVID-19 PCR Negative Assessment & Plan Assessment & Plan narrative: Porsche Branham is placed into observation for further evaluation and treatment of the suspected tenosynovitis of the ring finger of her left hand. Suspected tenosynovitis of the left ring finger, acute, present on admission -she started on IV vancomycin and ceftriaxone -Dr. Bowman orthopedic surgery will be seeing her in the morning and consulting on the case, much appreciated Atrial fibrillation, chronic, present on admission -patient is currently anticoagulated on warfarin 4 mg 5 days a week and 6 mg on Tuesdays and . -she is currently therapeutic at a INR of 2.5. -continue carvedilol 25 mg p.o. b.i.d. Essential hypertension, chronic and active -continue losartan 50 mg she takes at bedtime Hypothyroidism, chronic and active -Continue home dose of levothyroxine 50 mcg p.o. in the morning Hyperlipidemia, chronic and active -continue home dose of rosuvastatin 5 mg p.o. at bedtime GERD, chronic and active Continue home dose of omeprazole 20 mg p.o. daily Consults: Dr. Bowman, Orthopedic Surgery, consult and involvement is appreciated. Patient is observation status as [] stay is not likely to exceed 2 midnights. If patient requires surgery or prolonged IV antibiotic therapy, will convert status to inpatient FEN: IV heplock, low sodium diet, BMP in the am. VTE prophylaxis: Bilateral SCDs she is therapeutic on her home dose of warfarin Dispo: Likely discharge to home Code Status: Full code as discussed with patient COVID-19 COVID-19 status: Negative Result date/Date tested (Pos, Neg/Pending): 12/28/19
[2019-12-28] MEDS: carvediloL 25 MG TABLET PO ×3 (00:24→22:02)
[2019-12-28] MEDS: LOSARTAN 50 MG TABLET 25 MG PO ×2 (00:25→22:03)
[2019-12-28] MEDS: CEFTRIAXONE 1 GM/50 ML FROZ.PIGGY IV (00:26)
[2019-12-28] MEDS: WARFARIN 2 MG TABLET 4 MG PO (00:41)
[2019-12-28 05:53] LABS: Add Manual Diff / Slide Review NO; Basophils Absolute Auto 0 /uL (0-100); Basophils Percent Auto 0.4 % (0-2); Eosinophils Absolute Auto 100 /uL (0-450); Eosinophils Percent Auto 0.6 % (2-4); Hematocrit 35.5 % (36-46); Hemoglobin 11.9 g/dL (12.0-16.0); INR 2.5 (0.9-1.3); Lymphocytes Absolute Auto 1100 /uL (1100-4500); Lymphocytes Percent Auto 13.4 % (25-40); Mean Corpuscular HGB Conc 33.5 % (30-36); Mean Corpuscular Hemoglobin 30.4 PG (26-34); Mean Corpuscular Volume 90.8 fL (80-100); Monocytes Absolute Auto 1200 /uL (0-900); Monocytes Percent Auto 13.7 % (3-14); Neutrophils Absolute Auto 6100 /uL (1500-7000); Neutrophils Percent Auto 71.9 % (50-75); Platelet Count 157 X10^3/uL (150-400); Red Blood Cell Count 3.91 X10^6/uL (4.0-5.2); Red Cell Distribution Width 13.4 % (11.6-14.8); White Blood Cell Count 8.4 X10^3/uL (4.5-11.0)
[2019-12-28 05:59] LABS: BUN Creatinine Ratio 24.6 (6-22); Blood Urea Nitrogen 16 mg/dL (7-17); Calcium 8.9 mg/dL (8.4-10.2); Carbon Dioxide 27 mmol/L (22-32); Chloride 99 mmol/L (98-107); Estimated Glomerular Filt Rate > 60.0 mL/min (>60); Glucose 121 mg/dL (80-110); HEMOLYSIS < 15 (0-50); Magnesium 1.6 mg/dL (1.6-2.3); Potassium 4.1 mmol/L (3.4-5.1); Sodium 133 mmol/L (137-145)
[2019-12-28] MEDS: LEVOTHYROXINE 50 MCG TABLET PO (06:02)
--- NOTE | 2019-12-28 08:10 | PM.HP.1 ---
History of Present Illness History of Present Illness Date Patient Seen: 12/28/19 Time Patient Seen: 07:30 Date of Onset of Symptoms: 12/27/19 Chief complaint: Swelling,Redness,Fever in Right Ring Finger Narrative: Porsche is a 74-year-old [id number] female who presents with about 12 hours of right ring finger pain. She states the pain onset during the middle of the day yesterday. Denies any trauma at that time. States she was at the hospital with her who is here for medical condition. She noticed increased swelling right her ring finger and pain. She was seen in the ER found to have swelling tenderness along the flexor sheath but no flexed position no pain on passive stretch and good motion. She had ESR CRP that were in within normal range and no elevated white count. Concerns for early evolving flexor tenosynovitis. Was admitted to Medicine for IV antibiotics and close monitoring. In retrospect the patient does think that she got a puncture from a black tarry about 2 weeks ago but states that she did not have any pain or swelling or problems in the interim between the event 2 weeks ago and the development of swelling suddenly the . Go over test in the ER was negative. Has a history of AFib is on her warfarin and therapeutic anticoagulation. Patient History Medical History Abnormal chest xray (Inactive ~2010) Allergies (Chronic ~1999) Cardiac arrhythmia (Chronic ~2010) Cerumen impaction (Acute) Chicken pox (Resolved ~1949) Colon polyps (Chronic ~2016) Deep vein thrombosis (Chronic ~2010) Diverticular disease (Chronic ~2010) Essential hypertension (Chronic ~2004) GERD (gastroesophageal reflux disease) (Chronic ~2004) Headache (Chronic) Hearing loss (Chronic ~2008) Heart failure (Chronic ~2010) Heart stopped beating (Resolved ~2010) History of pulmonary embolism (Chronic ~2010) History of respiratory disorder (Chronic ~2010) Hypothyroid (Chronic) 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 ~1966) meterman current use of anticoagulant (Chronic) Measles (Resolved ~1949) Mumps (Resolved) Osteopenia (Chronic ~2004) Paroxysmal A-fib (Chronic ~2010) Pertussis (Resolved ~1954) Rheumatoid arthritis (Chronic) Rib fractures (Resolved) Rubella (Resolved ~1949) Scoliosis (Chronic ~1954) Sinusitis (Acute) Spondylisthesis (Acute) TGA (transient global amnesia) (Chronic ~2014) Vision disorder (Chronic) Surgical History Anesthesia (Resolved) Cataracts, bilateral (Resolved ~2013) History of colectomy (Resolved ~2010) History of dilation and curettage (Resolved) History of kidney surgery (Resolved ~2010) History of surgery (Resolved ~1966) History of tonsillectomy and adenoidectomy (Resolved) History of tubal ligation (Resolved) S/P devora (Resolved ~1992) S/P exploratory laparotomy (Resolved) S/P partial colectomy (Resolved ~2010) Strabismus (Resolved) Family & Social History Family History Father Stroke Mother No problems noted. Brother Hypertension Sister Back problem Grandfather Cancer Grandmother Diabetes mellitus Grandfather Stroke Grandmother Stroke Social History: household members spouse Prior Living Arrangements House Safety & Behavioral: Feels Safe in Current Yes Environment Been Physically Hurt or No Threatened By a Person Suicidal Ideation Description None Tobacco & Substance use: Smoking Status Never smoker Meds Home Medications and Allergies Home Medications Medication Instructions Recorded Confirmed Type cholecalciferol (vitamin D3) 50 2,000 unit PO DAILY 01/11/19 12/28/19 History mcg (2,000 unit) capsule multivitamin 1 tab PO DAILY 01/11/19 12/28/19 History dexamethasone 0.5 mg/5 mL oral 0.5 mg PO TID 04/12/19 12/28/19 History solution diclofenac sodium 1 % topical gel 2 gram TOP QID #100 gram 04/12/19 12/28/19 Rx lutein 25 mg-zeaxanthin 5 mg 25 cap PO DAILY 05/04/19 12/28/19 History capsule nitroglycerin 0.4 mg sublingual 0.4 mg SUBLINGUAL PRN PRN tab 08/31/19 12/28/19 History tablet rosuvastatin 5 mg tablet See Rx Instructions .ROUTE 08/31/19 12/28/19 History .COMPLEX tab carvedilol 25 mg tablet 25 mg PO BID #180 tab 09/03/19 12/28/19 Rx levothyroxine 50 mcg tablet 50 mcg PO DAILY #90 tab 09/03/19 12/28/19 Rx methocarbamol 750 mg tablet 750 mg PO TID PRN #270 tab 09/03/19 12/28/19 Rx omeprazole 20 mg tablet,delayed 20 mg PO DAILY #90 tab 09/03/19 12/28/19 Rx release warfarin 4 mg tablet 4 - 6 mg PO DAILY #135 tab 09/03/19 12/28/19 Rx losartan 50 mg PO BEDTIME 12/28/19 12/28/19 History Allergies Allergy/AdvReac Type Severity Reaction Status Date / Time ampicillin Allergy Intermediate Rash Verified 08/04/19 08:13 Penicillins Allergy Intermediate Was told Verified 08/04/19 08:13 not to take due to Ampicillin reaction alendronate sodium AdvReac Severe Esophageal Verified 08/04/19 08:13 [From Fosamax] pain, almost felt like a heart attack azithromycin AdvReac Intermediate Vomiting Verified 08/04/19 08:13 w/in 10 mins of taking adhesive tape AdvReac Mild Blister/Skin Verified 08/04/19 08:13 came off. Review of Systems Review of Systems ROS: Yes All systems reviewed with the patient and are negative except as otherwise documented Exam Vital Signs (past 8 hours): - 12/28/19 00:24 12/28/19 00:25 12/28/19 00:32 Temperature 98.2 F Pulse Rate 89 89 88 Respiratory Rate 16 Blood Pressure 140/61 140/61 130/76 Pulse Oximetry 96 12/28/19 05:26 12/28/19 06:04 Temperature 98.2 F Pulse Rate 80 Respiratory Rate 16 Blood Pressure 110/68 Pulse Oximetry 97 Oxygen Delivery Method Room Air Oxygen Flow Rate 0 Narrative Exam Narrative: General exam is alert oriented female in no acute distress sitting up in bed answers questions appropriately HEENT exam normocephalic atraumatic Respiratory lungs clear to auscultation bilaterally CV exam irregular rhythm Musculoskeletal examination: Right upper extremity hand shows normal cascade. There is moderate swelling along the volar flexor surface of the right ring finger. There is tenderness to palpation along the flexor tendon sheath. No tenderness dorsally. No circumferential swelling or sausage digit appearance. No flexed posture. No pain on passive stretch. Patient is able to flex and extend the digit well. Sensation grossly intact to light touch. Faint erythema in the area swelling. No tracking erythema up the palm or hand. Brisk capillary refill. Objective Imaging Right hand x-ray: My impression: Normal right hand x-rayed no evidence of foreign bodies. No fractures or dislocations Right hand MRI: My impression: Small amount of fluid around the flexor tendons 4th digit. Mild flexor tenosynovitis. Radiologist's impression: IMPRESSION: 1. Tenosynovitis involving the flexor tendons of fourth digit. Extensive soft tissue edema surrounding fourth finger. 2. Osteoarthritic changes are noted throughout right hand and wrist more prominent involving first CMC joint and first MCP joint. Small subcortical cyst formation involving ulnar aspect of fourth middle phalangeal head, subtle bony erosion cannot be entirely excluded. Subcortical cyst formation in proximal capitate is also seen. No definite enhancing intraosseous lesion is seen. 3. Rest of the tendons and ligaments of right hand are grossly intact. Dictated by: Alfredo Rivera M.D. on 12/28/2019 at 11:22 Approved by: Alfredo Rivera M.D. on 12/28/2019 at 11:44 Labs Result Diagrams: 12/28/19 05:20 12/28/19 05:20 Labs: Laboratory Results - last 24 hr 12/27/19 12/27/19 12/27/19 19:25 19:25 19:28 WBC 9.4 RBC 3.87 L Hgb 12.1 Hct 35.4 L MCV 91.6 MCH 31.4 MCHC 34.3 RDW 13.3 Plt Count 161 Neut % (Auto) 82.6 H Lymph % (Auto) 5.7 L Kingsbury % (Auto) 8.4 Eos % (Auto) 1.2 L Baso % (Auto) 2.1 H Neut # (Auto) 7700 H Lymph # (Auto) 500 L Kingsbury # (Auto) 800 Eos # (Auto) 100 Baso # (Auto) 200 H ESR 17 PT 28.9 H INR 2.5 H APTT 37 H Sodium 135 L Potassium 4.3 Chloride 98 Carbon Dioxide 29 BUN 21 H Creatinine 0.68 Estimated GFR > 60.0 BUN/Creatinine Ratio 30.9 H Glucose 152 H Uric Acid 2.5 Calcium 9.4 Magnesium Total Bilirubin 0.5 AST 38 H ALT 28 Alkaline Phosphatase 96 C-Reactive Protein 0.7 Total Protein 7.1 Albumin 4.3 Globulin 2.8 Albumin/Globulin Ratio 1.5 COVID-19 PCR 12/27/19 12/28/19 12/28/19 22:10 05:20 05:20 WBC 8.4 RBC 3.91 L Hgb 11.9 L Hct 35.5 L MCV 90.8 MCH 30.4 MCHC 33.5 RDW 13.4 Plt Count 157 Neut % (Auto) 71.9 Lymph % (Auto) 13.4 L Kingsbury % (Auto) 13.7 Eos % (Auto) 0.6 L Baso % (Auto) 0.4 Neut # (Auto) 6100 Lymph # (Auto) 1100 Kingsbury # (Auto) 1200 H Eos # (Auto) 100 Baso # (Auto) 0 ESR PT 29.0 H INR 2.5 H APTT Sodium Potassium Chloride Carbon Dioxide BUN Creatinine Estimated GFR BUN/Creatinine Ratio Glucose Uric Acid Calcium Magnesium Total Bilirubin AST ALT Alkaline Phosphatase C-Reactive Protein Total Protein Albumin Globulin Albumin/Globulin Ratio COVID-19 PCR Negative 12/28/19 05:20 WBC RBC Hgb Hct MCV MCH MCHC RDW Plt Count Neut % (Auto) Lymph % (Auto) Kingsbury % (Auto) Eos % (Auto) Baso % (Auto) Neut # (Auto) Lymph # (Auto) Kingsbury # (Auto) Eos # (Auto) Baso # (Auto) ESR PT INR APTT Sodium 133 L Potassium 4.1 Chloride 99 Carbon Dioxide 27 BUN 16 Creatinine 0.65 Estimated GFR > 60.0 BUN/Creatinine Ratio 24.6 H Glucose 121 H Uric Acid Calcium 8.9 Magnesium 1.6 Total Bilirubin AST ALT Alkaline Phosphatase C-Reactive Protein Total Protein Albumin Globulin Albumin/Globulin Ratio COVID-19 PCR Assessment & Plan Assessment and plan (1) Tenosynovitis of finger: Problem details: See below Status: Acute Assessment & Plan narrative: Pre finger swelling and tenderness. Concern for involving flexor tenosynovitis. Right at this time patient really only has 1 kanavel sign which is tenderness along the flexor tendon sheath. She does have a good maintain range of motion. She does not have fusiform swelling. And no pain on passive stretch. She does endorse possible remote injury to the tip of her finger by black bear about 2 weeks ago but had no symptoms until midday yesterday. She has had a dose of vancomycin ceftriaxone. Will give her those throughout the day and continue monitoring. We will also stopped her warfarin and obtain MRI with and without contrast to further evaluate the flexor tendon sheath and possible need for debridement. Patient requires inpatient monitoring and care for IV antibiotics monitoring additional imaging and possible surgery if indicated. MRI was obtained there is a small amount of fluid in the flexor tendon sheath consistent with tenosynovitis. This is a nonspecific for infectious versus inflammatory cause. The patient after 2 doses of antibiotics is no better or but no worse. Still has swelling and tenderness along the tendon sheath. No progression in kanavel signs. Discussed continue antibiotics for treatment of earlier mild flexor tenosynovitis overnight with plans for irrigation debridement formally in the morning if she is not improved significantly. Patient understands and agrees with the plan. She will be NPO at midnight. Her warfarin will be held and INR corrected to 1.4 or less before planned operative time which right now is 11:00 a.m. if the patient worsens dramatically would go before this but right now symptoms are mild stable and unchanged. Patient does require inpatient admission for IV antibiotics for flexor tenosynovitis monitoring and planned operative debridement. The risks and benefits of the procedure have been discussed with the patient even opportunity to ask questions. The risks of surgery include but are not limited to infection, need for additional procedures, persistence of pain, damage to nerves and blood vessels, posttraumatic arthritis, DVT, PE, cardiopulmonary complications and . The patient expressed a thorough understanding of the risks and benefits of surgery and has elected to proceed. Consent was signed today and the site of surgery was marked. COVID-19 COVID-19 status: Negative Quality VTE Deep Vein Thrombosis/Pulmonary Embolism Present on Admission: No
--- NOTE | 2019-12-28 08:27 | DI.MRI.S_ITS ---
PROCEDURE: MR HAND RT WO/W CON INDICATIONS: Tenosynovitis of 4th digit TECHNIQUE: Noncontrast coronal T1 spin echo and T2 fast spin echo with fat saturation, axial proton density fast spin echo and T2 fast spin echo with fat saturation, axial T1 spin echo with fat saturation, sagittal T1 spin echo and STIR through the hand and fingers. Post-contrast axial, coronal, and sagittal T1 spin echo through the hand and fingers. COMPARISON: None. FINDINGS: Image quality: Excellent. Bones: Osteoarthritic changes are noted throughout right hand and wrist multiple prominent involving first CMC joint and first MCP joint. Subcortical cyst formation and proximal capitate is seen. Subcortical cysts is also noted in the fourth middle phalangeal head. No area of abnormal intraosseous enhancement is seen. No suspicions intraosseous lesion. Interphalangeal joint(s): The accessory and proper collateral ligaments appear intact. The volar plate demonstrates normal morphology. The extensor central slips appear intact on sagittal images. Metacarpophalangeal joint(s): The accessory and proper collateral ligaments appear intact, as well as the volar plate and adjacent deep transverse metacarpal ligaments. The sagittal bands of the extensor weaver appear normal. Extensor apparatus: The central slips insert normally on the middle phalangeal base. The conjoint and terminal tendons insert normally on the distal phalangeal bases. More proximal portions of the extensor tendons also appear normal. Flexor apparatus: The flexor digitorum superficialis and profundus tendons both appear intact. There is soft tissue edema and swelling surrounding fourth digit with small amount of fluid distending fourth digit flexor tendon sheath consistent with low to moderate grade tenosynovitis. All annular and cruciform pulleys appear intact. Soft tissues: Visualized muscles demonstrate normal bulk and internal signal. No intramuscular masses identified. No ganglion cysts. IMPRESSION: 1. Tenosynovitis involving the flexor tendons of fourth digit. Extensive soft tissue edema surrounding fourth finger. 2. Osteoarthritic changes are noted throughout right hand and wrist more prominent involving first CMC joint and first MCP joint. Small subcortical cyst formation involving ulnar aspect of fourth middle phalangeal head, subtle bony erosion cannot be entirely excluded. Subcortical cyst formation in proximal capitate is also seen. No definite enhancing intraosseous lesion is seen. 3. Rest of the tendons and ligaments of right hand are grossly intact. Dictated by: Alfredo Rivera M.D. on 12/28/2019 at 11:22 Approved by: Alfredo Rivera M.D. on 12/28/2019 at 11:44
--- NOTE | 2019-12-28 08:28 | P.PN_ITS ---
Subjective Subjective Date Patient Seen: 12/28/19 Interval history: Porsche Branham is a 74-year-old female with a past medical history significant for hypertension, hyperlipidemia, paroxysmal atrial fibrillation on warfarin, hypothyroidism, GERD, and oral lichen planus who presented to the ED with abrupt and rapid progression of right 4th digit erythema, edema and pain. The patient is resting comfortably in bedside chair. She reports that she initially thought she had pricked herself with a blackberry a week or so ago in the but she had no swelling, erythema and the sensation resolved quickly. She reports that her finger began swelling yesterday around 16:00. She reports that her right 4th digit erythema and edema have not improved. She has mild pain to palpation mostly along the tendon sheath medially and with active range of motion. She has decreased range of motion especially flexion of the 4th digit. She reports that she had shaking chills yesterday and some chills this morning that have resolved. She has been afebrile. She endorses chronic mild headache and allergic cough. She has no other complaints and denies chest pain, shortness of breath, abdominal pain, nausea, vomiting, fever, chills, dysuria, diarrhea or constipation. She is voiding and eliminating without difficulty. She is up ambulating without assistance. Exam Vital Signs (past 8 hours): - 12/28/19 00:32 12/28/19 05:26 12/28/19 06:04 Temperature 98.2 F 98.2 F Pulse Rate 88 80 Respiratory Rate 16 16 Blood Pressure 130/76 110/68 Pulse Oximetry 96 97 Oxygen Delivery Method Room Air Oxygen Flow Rate 0 Narrative Exam Narrative: General: Elderly female sitting in bedside chair and in no acute distress, well-developed, well-nourished, appropriately interactive. HEENT: Normocephalic, atraumatic. External ears without defect. Pupils equal, round, and reactive to light. Anicteric sclerae, moist conjunctivae, and no lid lag. Oropharynx free of erythema and cobble stoning with moist mucosa. Neck: Supple with full range of motion. No jugular venous distension. No bruits. No lymphadenopathy or thyromegaly. Cardiovascular: Regular rate and rhythm without murmurs, rubs, or gallops appreciated Pulmonary: Clear to auscultation bilaterally without crackles, wheezes, or rhonchi. Normal respiratory effort with no use of accessory muscles. Abdomen: Soft, bowel sounds present, nontender, nondistended. No hepatosplenomegaly or masses appreciated. Extremities: Right 4th digit with moderate erythema along entire finger to base of hand, tenderness to palpation along especially medially, decreased range of motion especially flexion, pain with active and passive range of motion. No clubbing, cyanosis, or edema all extremities. Skin: Normal temperature, turgor, and texture; no rash, ulcers, or subcutaneous nodules appreciated. Neurological: Cranial nerves grossly intact. Normal muscle strength, tone, and bulk. Reflexes, coordination, and sensory function within normal limits. No known gait impairment. Psychiatric: Normal mood and affect. Alert and oriented to person, place, and time. Objective Labs Result Diagrams: 12/28/19 05:20 12/28/19 05:20 Labs: Laboratory Results - last 24 hr 12/27/19 12/27/19 12/27/19 19:25 19:25 19:28 WBC 9.4 RBC 3.87 L Hgb 12.1 Hct 35.4 L MCV 91.6 MCH 31.4 MCHC 34.3 RDW 13.3 Plt Count 161 Neut % (Auto) 82.6 H Lymph % (Auto) 5.7 L [place]agher % (Auto) 8.4 Eos % (Auto) 1.2 L Baso % (Auto) 2.1 H Neut # (Auto) 7700 H Lymph # (Auto) 500 L [place] # (Auto) 800 Eos # (Auto) 100 Baso # (Auto) 200 H ESR 17 PT 28.9 H INR 2.5 H APTT 37 H Sodium 135 L Potassium 4.3 Chloride 98 Carbon Dioxide 29 BUN 21 H Creatinine 0.68 Estimated GFR > 60.0 BUN/Creatinine Ratio 30.9 H Glucose 152 H Uric Acid 2.5 Calcium 9.4 Magnesium Total Bilirubin 0.5 AST 38 H ALT 28 Alkaline Phosphatase 96 C-Reactive Protein 0.7 Total Protein 7.1 Albumin 4.3 Globulin 2.8 Albumin/Globulin Ratio 1.5 COVID-19 PCR 12/27/19 12/28/19 12/28/19 22:10 05:20 05:20 WBC 8.4 RBC 3.91 L Hgb 11.9 L Hct 35.5 L MCV 90.8 MCH 30.4 MCHC 33.5 RDW 13.4 Plt Count 157 Neut % (Auto) 71.9 Lymph % (Auto) 13.4 L [place] % (Auto) 13.7 Eos % (Auto) 0.6 L Baso % (Auto) 0.4 Neut # (Auto) 6100 Lymph # (Auto) 1100 [place] # (Auto) 1200 H Eos # (Auto) 100 Baso # (Auto) 0 ESR PT 29.0 H INR 2.5 H APTT Sodium Potassium Chloride Carbon Dioxide BUN Creatinine Estimated GFR BUN/Creatinine Ratio Glucose Uric Acid Calcium Magnesium Total Bilirubin AST ALT Alkaline Phosphatase C-Reactive Protein Total Protein Albumin Globulin Albumin/Globulin Ratio COVID-19 PCR Negative 12/28/19 05:20 WBC RBC Hgb Hct MCV MCH MCHC RDW Plt Count Neut % (Auto) Lymph % (Auto) Me[place] % (Auto) Eos % (Auto) Baso % (Auto) Neut # (Auto) Lymph # (Auto) Meagher # (Auto) Eos # (Auto) Baso # (Auto) ESR PT INR APTT Sodium 133 L Potassium 4.1 Chloride 99 Carbon Dioxide 27 BUN 16 Creatinine 0.65 Estimated GFR > 60.0 BUN/Creatinine Ratio 24.6 H Glucose 121 H Uric Acid Calcium 8.9 Magnesium 1.6 Total Bilirubin AST ALT Alkaline Phosphatase C-Reactive Protein Total Protein Albumin Globulin Albumin/Globulin Ratio COVID-19 PCR Assessment & Plan Assessment & Plan narrative: Porsche Branham is a 74-year-old female with a past medical history significant for hypertension, hyperlipidemia, paroxysmal atrial fibrillation on warfarin, hypothyroidism, GERD, and oral lichen planus who presented to the ED with abrupt and rapid progression of right 4th digit erythema, edema and pain. 1. Acute right 4th digit tenosynovitis, present on admission. Active. -Patient presented with rapid onset right 4th digit erythema, edema and pain. Patient believes she may have been pricked with a blackberry a 1-2 weeks ago but did not have any infectious signs or symptoms start until yesterday. -Initial WBC 9.4 with 83% PMNs and procalcitonin < 0.05. Continue to trend WBC. -ESR normal at 17 and CRP normal at 0.7. -Right hand x-ray did not demonstrate any osseous abnormalities. -Ordered MRI of right hand with and without contrast, pending. -Received vancomycin in ED. Continue ceftriaxone 2 g IV daily and vancomycin with dosing per pharmacist. -Consulted orthopedic surgery, Dr. Bustamante, who recommends conservative treatment with IV antibiotics and possible surgical intervention. Held warfarin for possible surgical intervention. COVID-19 negative. 2. Paroxysmal atrial fibrillation on warfarin, chronic, present on admission. Stable. -Continue rate control with carvedilol 25 mg twice daily. -Held warfarin for possible surgical intervention as above. Patient is currently therapeutic on warfarin with INR 2.5. If surgical intervention warranted will plan to reversed with vitamin K and FFP if needed. 3. Hypertension, chronic, present on admission. Stable. -Continue home carvedilol 25 mg twice daily and losartan 50 mg daily at bedtime. 4. Hyperlipidemia, chronic, present on admission. Stable. -Continue rosuvastatin 5 mg daily at bedtime. 5. Hypothyroidism, chronic, present on admission. Stable. -Continue home levothyroxine 50 mcg daily. 6. GERD, chronic, present on admission. Stable. -Continue home omeprazole 20 mg daily. 7. Oral lichen planus, chronic, present on admission. Stable. -Continue home dexamethasone mouthwash 3 times daily. Code status: Full code VTE prophylaxis: Warfarin Disposition: Patient will likely discharge home once right 4th digit tenosynovitis has been adequately treated.
[2019-12-28] MEDS: PANTOPRAZOLE 20 MG TABLET PO (09:22)
[2019-12-28] MEDS: MAGNESIUM CHLORIDE 64 MG TABLET 128 MG PO (13:19)
[2019-12-28] MEDS: CEFTRIAXONE 2 GM/50 ML FROZ.PIGGY IV (13:19)
[2019-12-28 13:25] LABS: Procalcitonin < 0.05 ng/mL (<0.5)
--- NOTE | 2019-12-28 14:44 | CM.DPNOTE ---
DCP/Assessment: Reviewed chart. Patient is a 74yr old female admitted to [facility] with probable cellulitis of right finger. PCP is Uday Johnston. Primary payor is 1)Medicare 2)[employer]. Met with patient and spouse/Anmol at bedside explained CM/SW role. Patient reports that she resides in [place] with spouse. Patient expected to have MRI and orthopedic consult today. Patient may need I&D of finger, currently on IV abx. Patient reports that prior to admit she was I in ADL's. Patient and spouse do not anticipate d/c planning. P: Anticipate home. CM team to follow closely for any d/c planning needs that may arise. AIMEE Berman Discharge Planning/Care Management CM Discharge Assessment Start: 12/28/19 14:41 Freq: Status: Active Protocol: Document 12/28/19 14:41 KJS (Rec: 12/28/19 14:44 [id number]) Discharge Planning Assessment Assigned [employer] AIMEE Berman Contact Information Anmol Branham (spouse) Advance Directives? No History Provided By Patient,Significant Other, Medical Record Prior Living Arrangements House Household Members spouse Independent with ADL's Yes Is patient alert and oriented? Yes Caregiver for Another No Barriers to Discharge No Discharge Plan Home Transportation Arrangement Family to provide transport. Whiteboard Updated in Patient Room with Yes name and ext. # of [employer] Review Status In Process Next Review Type Continued Stay Review
[2019-12-28] MEDS: VANCOMYCIN 1,000 MG/200 ML PIGGYBACK 167 MG IV (14:56)
[2019-12-28] MEDS: ACETAMINOPHEN 325 MG TABLET 650 MG PO (17:15)
[2019-12-28] MEDS: PHYTONADIONE (VIT K1) 5 MG TABLET PO (18:26)
[2019-12-28] MEDS: DEXAMETHASONE 0.5 MG/5 ML 5 EACH PO (22:02)
[2019-12-28] MEDS: ROSUVASTATIN 10 MG TABLET 20 MG PO (22:03)
[2019-12-29] VITALS (9 sets, daily range): BP systolic 95–135; BP diastolic 51–72; PULSE 69–74; RESP 16–18; TEMP 36.2–36.9; O2SAT 95–99
[2019-12-29 05:52] LABS: Add Manual Diff / Slide Review NO; Basophils Absolute Auto 0 /uL (0-100); Basophils Percent Auto 0.4 % (0-2); Eosinophils Absolute Auto 200 /uL (0-450); Hematocrit 34.5 % (36-46); Hemoglobin 11.8 g/dL (12.0-16.0); Lymphocytes Absolute Auto 1100 /uL (1100-4500); Lymphocytes Percent Auto 11.8 % (25-40); Mean Corpuscular Hemoglobin 31.1 PG (26-34); Mean Corpuscular Volume 91.5 fL (80-100); Monocytes Absolute Auto 1200 /uL (0-900); Monocytes Percent Auto 12.4 % (3-14); Neutrophils Absolute Auto 7000 /uL (1500-7000); Neutrophils Percent Auto 73.4 % (50-75); Platelet Count 148 X10^3/uL (150-400); Red Blood Cell Count 3.77 X10^6/uL (4.0-5.2); Red Cell Distribution Width 13.3 % (11.6-14.8); White Blood Cell Count 9.5 X10^3/uL (4.5-11.0)
[2019-12-29 05:56] LABS: INR 1.9 (0.9-1.3); Prothrombin Time 22.3 SECONDS (10.1-12.7)
[2019-12-29 06:01] LABS: Alanine Aminotransferase 21 IU/L (<35); Albumin 3.7 g/dL (3.5-5.0); Albumin Globulin Ratio 1.3 (1.0-2.8); Alkaline Phosphatase 79 U/L (38-126); Aspartate Aminotransferase 25 IU/L (14-36); BUN Creatinine Ratio 27.7 (6-22); Bilirubin Total 0.4 mg/dL (0.2-1.3); Blood Urea Nitrogen 18 mg/dL (7-17); Calcium 9.2 mg/dL (8.4-10.2); Carbon Dioxide 30 mmol/L (22-32); Chloride 103 mmol/L (98-107); Estimated Glomerular Filt Rate > 60.0 mL/min (>60); Globulin 2.8 g/dL (1.7-4.1); Glucose 112 mg/dL (80-110); HEMOLYSIS < 15 (0-50); Potassium 4.5 mmol/L (3.4-5.1); Sodium 137 mmol/L (137-145); Total Protein 6.5 g/dL (6.3-8.2)
[2019-12-29] MEDS: LEVOTHYROXINE 50 MCG TABLET PO (06:15)
[2019-12-29 06:19] LABS: Procalcitonin < 0.05 ng/mL (<0.5)
--- NOTE | 2019-12-29 07:44 | PM.PN.1 ---
Subjective Subjective Date Patient Seen: 12/29/19 Time Patient Seen: 07:45 Interval history: Porsche is a 74 yo F R RF swellling . has been on iv abx 30 hours. reports marked improvement over night, decreased swelling and pain. only miminal tenderness in one area over flexor surface, and endorse increase ROM. states she is feeling better Exam Vital Signs (past 8 hours): - 12/29/19 00:00 12/29/19 05:50 Temperature 97.4 F L 97.2 F L Pulse Rate 74 74 Respiratory Rate 16 18 Blood Pressure 112/64 135/61 Pulse Oximetry 97 97 Oxygen Delivery Method Room Air Oxygen Flow Rate 0 Narrative Exam Narrative: General exam alert oriented female no acute distress HEENT exam normocephalic atraumatic Respiratory exam unlabored on room air CV exam AFib Musculoskeletal exam: Right upper extremity right ring finger swelling is improved from yesterday. Skin wrinkles present. There is some minimal swelling over the flexor surface of the finger some tenderness over the middle phalanx no tenderness over the proximal phalanx or A1 faviola. Patient is able to form a full fist. No pain on passive stretch. No sausage digit appearance. No flexed posture Objective Labs Result Diagrams: 12/29/19 05:24 12/29/19 05:24 Labs: Laboratory Results - last 24 hr 12/28/19 12/28/19 12/29/19 05:42 17:40 05:24 WBC RBC Hgb Hct MCV MCH MCHC RDW Plt Count Neut % (Auto) Lymph % (Auto) [place] % (Auto) Eos % (Auto) Baso % (Auto) Neut # (Auto) Lymph # (Auto) [place] # (Auto) Eos # (Auto) Baso # (Auto) PT 22.3 H D INR 1.9 H Sodium Potassium Chloride Carbon Dioxide BUN Creatinine Estimated GFR BUN/Creatinine Ratio Glucose Calcium Magnesium Total Bilirubin AST ALT Alkaline Phosphatase Total Protein Albumin Globulin Albumin/Globulin Ratio Procalcitonin < 0.05 Blood Type O Positive 12/29/19 12/29/19 12/29/19 05:24 05:24 05:24 WBC 9.5 RBC 3.77 L Hgb 11.8 L Hct 34.5 L MCV 91.5 MCH 31.1 MCHC 34.0 RDW 13.3 Plt Count 148 L Neut % (Auto) 73.4 Lymph % (Auto) 11.8 L [place] % (Auto) 12.4 Eos % (Auto) 2.0 Baso % (Auto) 0.4 Neut # (Auto) 7000 Lymph # (Auto) 1100 [place] # (Auto) 1200 H Eos # (Auto) 200 Baso # (Auto) 0 PT INR Sodium 137 Potassium 4.5 Chloride 103 Carbon Dioxide 30 BUN 18 H Creatinine 0.65 Estimated GFR > 60.0 BUN/Creatinine Ratio 27.7 H Glucose 112 H Calcium 9.2 Magnesium 2.0 Total Bilirubin 0.4 AST 25 ALT 21 Alkaline Phosphatase 79 Total Protein 6.5 Albumin 3.7 Globulin 2.8 Albumin/Globulin Ratio 1.3 Procalcitonin < 0.05 Blood Type Assessment & Plan Assessment & Plan narrative: r ring finger swelling improved--clinical appearance improved. Will cancel I and D plan for this morning and continue IV antibiotics over the next 24 hours and if continues to improve transitioned to oral medications. Patient currently on vancomycin and ceftriaxone. Continue these through the course of the day and overnight. If doing well tomorrow morning transitioned to Bactrim and Keflex times 10 days on discharge. The patient understands and agrees with the plan. Continue to hold warfarin until discharge Time Spent With Patient Time with patient: less than 15 minutes Quality VTE Deep Vein Thrombosis/Pulmonary Embolism Present on Admission: No
[2019-12-29] MEDS: PANTOPRAZOLE 20 MG TABLET PO (09:01)
[2019-12-29] MEDS: DEXAMETHASONE 0.5 MG/5 ML 5 EACH PO ×3 (09:01→20:46)
[2019-12-29] MEDS: carvediloL 25 MG TABLET PO ×2 (09:01→20:48)
[2019-12-29] MEDS: polyethylene glycoL 3350 17 GM POWD.PACK PO ×2 (09:02→18:18)
[2019-12-29] MEDS: WARFARIN 5 MG TABLET PO (09:07)
[2019-12-29] MEDS: VANCOMYCIN 1,000 MG/200 ML PIGGYBACK 167 MG IV (09:07)
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
[2019-12-29] MEDS: CEFTRIAXONE 2 GM/50 ML FROZ.PIGGY IV (12:31)
--- NOTE | 2019-12-29 14:46 | CM.DPC ---
DCP/continued: Reviewed chart. [employer] met with patient in AM rounds with provider and team. Patient plans to d/c home when medically stable. Patient denies any d/c planning needs at this time. Provider indicates patient most likely will be medically stable tomorrow 12/30/2019. Patient expected to d/c home on po antibiotics. Patient changed to inpatient status today per DANIELLE/Sidra. P: Home when stable. CM team to continue to follow. AIMEE Berman
[2019-12-29] MEDS: ROSUVASTATIN 10 MG TABLET 5 MG PO (20:48)
[2019-12-29] MEDS: LOSARTAN 50 MG TABLET 25 MG PO (20:48)
[2019-12-30] VITALS: BP 100/70; PULSE 74; RESP 16; TEMP 36.3; O2SAT 97
[2019-12-30] MEDS: ACETAMINOPHEN 325 MG TABLET 650 MG PO (00:42)
[2019-12-30] MEDS: VANCOMYCIN TROUGH 1 REQUEST MISC (01:33)
[2019-12-30] MEDS: VANCOMYCIN 1,000 MG/200 ML PIGGYBACK 167 MG IV (01:51)
[2019-12-30 02:03] LABS: Vancomycin Trough 8.2 ug/mL (10-20)
[2019-12-30 05:00] VITALS: BP 110/65; PULSE 70; RESP 18; TEMP 36.6; O2SAT 96
[2019-12-30 06:08] LABS: INR 1.4 (0.9-1.3); Prothrombin Time 16.2 SECONDS (10.1-12.7)
[2019-12-30] MEDS: LEVOTHYROXINE 50 MCG TABLET PO (06:29)
[2019-12-30] MEDS: DEXAMETHASONE 0.5 MG/5 ML 5 EACH PO (06:32)
--- NOTE | 2019-12-30 06:57 | PM.PN.1 ---
Subjective Subjective Date Patient Seen: 12/30/19 Time Patient Seen: 06:57 Interval history: 74-year-old female right ring finger swelling now improved. Has full range of motion no tenderness. Markedly improved on IV antibiotics. Will transition to oral antibiotics today and discharged home. Denies fevers chills nausea or vomiting. Endorses marked improvement in symptoms Exam Vital Signs (past 8 hours): - 12/29/19 23:00 12/30/19 00:00 12/30/19 05:00 Temperature 97.3 F L 97.8 F Pulse Rate 74 70 Respiratory Rate 16 18 Blood Pressure 100/70 110/65 Pulse Oximetry 97 97 96 Oxygen Delivery Method Room Air Oxygen Flow Rate 0 Narrative Exam Narrative: Exam Narrative: General exam alert oriented female no acute distress HEENT exam normocephalic atraumatic Respiratory exam unlabored on room air CV exam AFib Musculoskeletal exam: Right upper extremity right ring finger swelling is improved even more from yesterday. Skin wrinkles present. There is some very minimal swelling over the flexor surface of the finger , no more tenderness today. Patient is able to form a full fist. No pain on passive stretch. No sausage digit appearance. No flexed posture. There is a small area of faint erythema dorsally over the middle phalanx but no swelling and no tenderness. This does not extend to the volar surface and is nonpainful. No fluctuance no focal signs of abscess or drainable lesion Objective Labs Result Diagrams: 12/29/19 05:24 12/29/19 05:24 Labs: Laboratory Results - last 24 hr 12/30/19 12/30/19 01:29 05:06 PT 16.2 H D INR 1.4 H Vancomycin Trough 8.2 L Assessment & Plan Assessment & Plan narrative: r ring finger swelling improved--clinical appearance improved. no surgery indicated at this time. ok to transition to oral medications. Patient currently on vancomycin and ceftriaxone. Can If doing well tomorrow morning transition to Bactrim and Keflex times 10 days on discharge. ok for d/c today. f/u 1 weekk-10 days with ortho. sooner iof condition worsens. The patient understands and agrees with the plan. ok to restart warfarin Time Spent With Patient Time with patient: less than 15 minutes Quality VTE Deep Vein Thrombosis/Pulmonary Embolism Present on Admission: No
[2019-12-30 07:27] VITALS: BP 111/64; PULSE 62; RESP 16; TEMP 36.4; O2SAT 98
[2019-12-30 08:30] VITALS: O2SAT 98
[2019-12-30] MEDS: VANCOMYCIN 1,000 MG/200 ML PIGGYBACK 200 MG IV (08:44)
[2019-12-30 08:45] VITALS: BP 111/64
[2019-12-30] MEDS: carvediloL 25 MG TABLET PO (08:45)
[2019-12-30] MEDS: PANTOPRAZOLE 20 MG TABLET PO (08:45)
[2019-12-30] MEDS: polyethylene glycoL 3350 17 GM POWD.PACK PO (08:45)
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
--- NOTE | 2019-12-30 11:27 | PC.NURSE ---
Pt's home meds returned to Pt by [facility].
[2019-12-30] MEDS: CEFTRIAXONE 2 GM/50 ML FROZ.PIGGY IV (11:31)
--- NOTE | 2019-12-30 11:56 | PC.NURSE ---
Pt is ready for discharge home with Spouse. IV abx are finishing up and then IV will be removed. Went over d/c instructions with Pt and Spouse - discussed d/c meds, time of last dose, reviewed stroke education, and follow up. Encouraged fluid intake while on abx and Pt to consider probiotics. Pt and Spouse deny further questions and will be taken out to [facility] via w/c by [facility] REP with all belongings.
== END 2019-12-30 12:30 | disposition home or self-care (01) | DRG 558 ==
LOC: ED 20:50 → AC 21:33
PROVIDERS: Internal Medicine; Admitting Provider Nurse Practitioner Family; Emergency Provider Emergency Medicine; PCP Family Medicine; Visit Provider Nurse Practitioner Family
DX: M65.141 Other infective (teno)synovitis, right hand (principal); I48.0 Paroxysmal atrial fibrillation; E03.9 Hypothyroidism, unspecified; I10 Essential (primary) hypertension; K21.9 Gastro-esophageal reflux disease without esophagitis; E78.5 Hyperlipidemia, unspecified; L43.9 Lichen planus, unspecified; Z79.01 Long term (current) use of anticoagulants; Z11.59 Encounter for screening for other viral diseases
CPT/HCPCS: 36415; 73140; 73220; 80048; 80053; 80202; 83735; 84145; 84550; 85025; 85610; 85651; 85730; 86140; 86900; 86901; 86927; 87040; 87635; 96365; 99284; G0378; J0696

== ENCOUNTER 2020-06-26 09:45 | Outpatient (RCR) | payer MEDICARE, OTHER, SELFPAY ==
[2019-12-27 22:30] VITALS: BMI 24.0
--- NOTE | 2020-04-18 16:48 | PT.OIE ---
Current Diagnoses Spondylolisthesis, site unspecified (04/18/20) Difficulty in walking, not elsewhere classified (04/18/20) Abnormal posture (04/18/20) Weakness (04/18/20) Past Medical History (Last Reviewed 04/11/20 @ 12:02 by Jonathan Johnston DO) Abnormal chest xray (Inactive ~2010) Allergies (Chronic ~1999) Cardiac arrhythmia (Chronic ~2010) Cerumen impaction (Acute) Chicken pox (Resolved ~1949) Colon polyps (Chronic ~2016) Deep vein thrombosis (Chronic ~2010) Diverticular disease (Chronic ~2010) Essential hypertension (Chronic ~2004) GERD (gastroesophageal reflux disease) (Chronic ~2004) Headache (Chronic) Hearing loss (Chronic ~2008) Heart failure (Chronic ~2010) Heart stopped beating (Resolved ~2010) History of pulmonary embolism (Chronic ~2010) History of respiratory disorder (Chronic ~2010) Hypothyroid (Chronic) 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 ~1966) prison current use of anticoagulant (Chronic) Measles (Resolved ~1949) Mumps (Resolved) Osteopenia (Chronic ~2004) Osteoporosis (Acute) Paroxysmal A-fib (Chronic ~2010) Pertussis (Resolved ~1954) Rheumatoid arthritis (Chronic) Rib fractures (Resolved) Rubella (Resolved ~1949) Scoliosis (Chronic ~1954) Sinusitis (Acute) Spondylisthesis (Acute) TGA (transient global amnesia) (Chronic ~2014) Vision disorder (Chronic) Past Surgical History (Last Reviewed 12/28/19 @ 16:35 by Tere Bustamante MD) Anesthesia (Resolved) Cataracts, bilateral (Resolved ~2013) History of colectomy (Resolved ~2010) History of dilation and curettage (Resolved) History of kidney surgery (Resolved ~2010) History of surgery (Resolved ~1966) History of tonsillectomy and adenoidectomy (Resolved) History of tubal ligation (Resolved) S/P devora (Resolved ~1992) S/P exploratory laparotomy (Resolved) S/P partial colectomy (Resolved ~2010) Strabismus (Resolved) Visit Care Team Role Provider Type Jonathan Johnston DO Attending Provider Physician Primary Care Provider Referring Provider Specialty: Family Practice Address: [address] [place] [address], [facility] Email: [email or web address] Physical Therapy Initial Evaluation PT-OP-A Visit Information Start: 04/18/20 13:00 Freq: Status: Active Protocol: Document 04/18/20 14:33 [facility] (Rec: 04/18/20 15:18 [facility] [id number]) Out-Patient Physical Therapy Visit Information Visit Information Visit Type Initial Evaluation Visit Note 07/09 Visit Start Time 14:30 Visit Stop Time 15:15 Total Visit Minutes 45 Visit Number 1 Number of WICKER MOLDED CANDLES Visits 0 PT-OP-B Current Condition Start: 04/18/20 13:00 Freq: Status: Active Protocol: Document 04/18/20 14:33 [facility] (Rec: 04/18/20 15:18 [facility] [id number]) Current Condition History of Current Condition Onset Date December 26 Current Complaints LB & R>L leg History of Current Condition Pt reports being hospitalized for infected finger and felt like was off balance and weak since then. She was doing great since last bout of therapy until this. Pt reprots RLE sometimes feels like it is going to give out when she stands up. REports cont to do PT exercises. Pt reprots R leg , R hip and back has been bothering her. Since infection she has had inc difficulty getting up out of chair. Pt reports back and R leg bothers her when she walks a 1 mile or 2 miles. She typically has to lean against something to dec back painb ut it doesn't help her leg. Pt can only stand for 30 min or less but has to sit for a min to relieve pain Prior Treatments and Tests PT helped a lot in past mult times. Treatment Goals Patient/Caregiver Goals Dec pain, improve ability to walk with less pain, be able to get out of chair easier, be able to get up/down from tub & up/down from floor, improve abilityt o put L sock/shoe on PT-OP-C Subjective Start: 04/18/20 13:00 Freq: Status: Active Protocol: Document 04/18/20 14:33 [facility] (Rec: 04/18/20 15:18 [facility] [id number]) Patient Questionnaires Oswestry Low Back Index Oswestry Score 17/50 OP-PT Pain Assessment Location LB Pain Location Details LB, L>R hip Intensity 5 Scale Used Numeric (0 - 10) Description Aching Frequency Intermittent Pain Aggravating Factors Standing,Walking Other Pain Aggravating Factors working in yard, sit to stand, laying flat Pain Alleviating Factors Medication,Sitting PT-OP-E Functional Tests Start: 04/18/20 13:00 Freq: Status: Active Protocol: Document 04/18/20 14:33 [facility] (Rec: 04/18/20 15:18 [facility] [id number]) Functional Tests 30 Second Sit to Stand Test Score 9 Five Times Sit to Stand Test Score 15 sec Functional Gait Assessment Score 17 PT-OP-F Manual Assessment Start: 04/18/20 13:00 Freq: Status: Active Protocol: Document 04/18/20 14:33 [facility] (Rec: 04/18/20 15:18 [facility] [id number]) Manual Assessments Soft Tissue Assessment Soft Tissue Mobility Assessment L>R ES & QL tightness, R glute & pifiromis tightness, R iliacus & quads Joint Mobility Assessment Joint Mobility Assessment R illiac crest higher, equal greater trochanters PT-OP-G Mobility & Gait Start: 04/18/20 13:00 Freq: Status: Active Protocol: Document 04/18/20 14:33 [facility] (Rec: 04/18/20 15:18 [facility] [id number]) OP Gait Assessment Comments Gait Comments Pt has lat leaning with gait w / dec push off B PT-OP-J Posture/Palpation/Skin Start: 04/18/20 13:00 Freq: Status: Active Protocol: Document 04/18/20 14:33 [facility] (Rec: 04/18/20 15:18 [facility] [id number]) Posture Evaluation Andres Postural Classification System Elbow Flexion Test 1 Lumbar Protective Mechanism Left AP 0 Lumbar Protective Mechanism Right AP 0 Lumbar Protective Mechanism Left PA 0 Lumbar Protective Mechanism Right PA 0 Comments Posture Comments scolosis, kyphosis & fwd head, R shear of pelvis, L iliac crest higher, valgus knees PT-OP-K Range of Motion Start: 04/18/20 13:00 Freq: Status: Active Protocol: Document 04/18/20 14:33 [facility] (Rec: 04/18/20 15:18 [facility] [id number]) Lumbar Spine Range of Motion Lumbar Spine Active Degrees Flexion 55 Extension 12 Rotation Left 21 Rotation Right 20 Lateral Flexion Left 10 Lateral Flexion Right 12 Comments pain w/ext & L SB PT-OP-L Special Tests Start: 10/20/20 13:00 Freq: Status: Active Protocol: Document 04/18/20 14:33 [facility] (Rec: 04/18/20 15:18 [facility] [id number]) Special Tests Lumbar Spine Special Tests Tay Test Results L mild iliacus & RF tightness SLR Test Results L 79 deg, R 70 deg Slump Test Results neg B PT-OP-M Strength Start: 04/18/20 13:00 Freq: Status: Active Protocol: Document 04/18/20 14:33 [facility] (Rec: 04/18/20 15:18 [facility] [id number]) Hip Strength Hip Manual Muscle Testing Right Flexion (L2) 3+ Fair+ Extension (S1) 3 Fair Abduction 3+ Fair+ External Rotation 3+ Fair+ Internal Rotation 3 Fair Left Flexion (L2) 3 Fair Extension (S1) 3 Fair Abduction 3 Fair External Rotation 3+ Fair+ Internal Rotation 3+ Fair+ Knee Strength Knee Manual Muscle Testing Right Flexion (S2) 4- Good- Extension (L3) 4 Good Left Flexion (S2) 4 Good Extension (L3) 4- Good- Ankle/Foot Strength Ankle and Foot Manual Muscle Testing Left Dorsiflexion (L4) 5 Normal Plantarflexion (S1) 5 Normal Right Dorsiflexion (L4) 5 Normal Plantarflexion (S1) 5 Normal Comments seated PF tested B PT-OP-Q Treatments Start: 04/18/20 13:00 Freq: Status: Active Protocol: Document 04/18/20 14:33 [facility] (Rec: 04/19/20 08:38 [facility] [id number]) Therapeutic Exercises Sidelying Exercises abd Side bilateral Reps/Minutes 10 Comments cueing to keep hips aligned, keep knee straight. ER Side bilateral Reps/Minutes 10 Comments focus on not rolling Standing Exercises sit to stand Reps/Minutes 10 Comments without UE support PT-OP-T Assessment and Plan Start: 04/18/20 13:00 Freq: Status: Active Protocol: Document 04/18/20 14:33 [facility] (Rec: 04/18/20 15:18 [facility] [id number]) Physical Therapy Assessment Rehab Potential Rehabilitation Potential Good Evaluation Complexity Number of Personal Factors/Comorbidities 3 or More Number of Body Systems Impaired 4 or More Clinical Presentation at Evaluation Evolving Impairments Impairments Activity Tolerance,Balance, Functional Activities, Functional Mobility,Gait,Pain, Posture,Soft Tissue Mobility, Strength Goals sit to stand Short Term Goal (STG) Pt will be able to do 5x sit to veterinary parasitologist 12 sec to show inc strength and dec risk for falls. STG Duration 05/19/20 Emanations Analysis Technician Goal (LTG) Pt will be able to do 13 sit to stands in 30 sec to show improved strength and dec risk for falls. LTG Duration 06/18/20 strength Short Term Goal (STG) Pt will be indep with HEP STG Duration 05/19/20 Emanations Analysis Technician Goal (LTG) Pt will score 4+/5 for all LE motions to make pt have greater ease with getting around. LTG Duration 06/18/20 FGA Impairment FGA 17/30 Care Home Goal (LTG) Pt will score 25/30 on FGA to show dec risk for falls. LTG Duration 06/18/20 oswestry Impairment 17/50 Care Home Goal (LTG) Pt will improve score to 7/50 in order to show improved functional ability LTG Duration 06/18/20 Assessment Summary Assessment Pt presents with LBP w/R>L leg paina nd groin pain with feeling of weakness since this got worse this summer when she had an infection in her hand. She is having greater difficulty with yard/house work and with up/down from chairs, standing extended time and with ambulation. Pain and weakness are her major limiting factors but pt does show dec balance as compared to when she finished PT in August. She would benefit from PT to work on core stability, LE strength, balance, improving fucntional ability and safety. Physical Therapy Plan Frequency and Duration Frequency of Treatment 2x/Week Duration of Treatment 2 months Plan of Care Start Date 04/18/20 Plan of Care End Date 06/18/20 Therapeutic Interventions Therapeutic Interventions Aquatic Therapy,Balance Training,Gait Training,Home Exercise Program,Joint Mobilizations,Manual Therapy, Neuromuscular Re-education, Patient/Caregiver Education, Self-Care/Home Management,Soft Tissue Mobilization,Taping, Therapeutic Activities, Therapeutic Exercises Modalities Cold Pack/Ice Massage,Electric Stimulation,Hot Packs Next Visit Focus/Plan Next Note Type Treatment Note Next Visit Plan side steps, balance board, toe taps w/wt on LEs, seated stepper, leg press
--- NOTE | 2020-04-18 16:49 | PT.OPPOC ---
Physical, Occupational & Speech Therapy At [facility] Current Diagnoses Spondylolisthesis, site unspecified (04/18/20) Difficulty in walking, not elsewhere classified (04/18/20) Abnormal posture (04/18/20) Weakness (04/18/20) Visit Care Team Role Provider Type Jonathan Johnston DO Attending Provider Physician Primary Care Provider Referring Provider Specialty: [facility] Address: [address] [place] [address], [facility] Email: [email or web address] Plan Of Care PT-OP-T Assessment and Plan Start: 04/18/20 13:00 Freq: Status: Active Protocol: Document 04/18/20 14:33 [facility] (Rec: 04/18/20 15:18 [facility] [id number]) Physical Therapy Assessment Rehab Potential Rehabilitation Potential Good Evaluation Complexity Number of Personal Factors/Comorbidities 3 or More Number of Body Systems Impaired 4 or More Clinical Presentation at Evaluation Evolving Impairments Impairments Activity Tolerance,Balance, Functional Activities, Functional Mobility,Gait,Pain, Posture,Soft Tissue Mobility, Strength Goals sit to stand Short Term Goal (STG) Pt will be able to do 5x sit to production mechanic tin cans 12 sec to show inc strength and dec risk for falls. STG Duration 05/19/20 Residential Goal (LTG) Pt will be able to do 13 sit to stands in 30 sec to show improved strength and dec risk for falls. LTG Duration 06/18/20 strength Short Term Goal (STG) Pt will be indep with HEP STG Duration 05/19/20 Fire Extinguisher Tester Goal (LTG) Pt will score 4+/5 for all LE motions to make pt have greater ease with getting around. LTG Duration 06/18/20 FGA Impairment FGA 17/30 Fire Extinguisher Tester Goal (LTG) Pt will score 25/30 on FGA to show dec risk for falls. LTG Duration 06/18/20 oswestry Impairment 17/50 Fire Extinguisher Tester Goal (LTG) Pt will improve score to 7/50 in order to show improved functional ability LTG Duration 06/18/20 Assessment Summary Assessment Pt presents with LBP w/R>L leg paina nd groin pain with feeling of weakness since this got worse this summer when she had an infection in her hand. She is having greater difficulty with yard/house work and with up/down from chairs, standing extended time and with ambulation. Pain and weakness are her major limiting factors but pt does show dec balance as compared to when she finished PT in August. She would benefit from PT to work on core stability, LE strength, balance, improving fucntional ability and safety. Physical Therapy Plan Frequency and Duration Frequency of Treatment 2x/Week Duration of Treatment 2 months Plan of Care Start Date 04/18/20 Plan of Care End Date 06/18/20 Therapeutic Interventions Therapeutic Interventions Aquatic Therapy,Balance Training,Gait Training,Home Exercise Program,Joint Mobilizations,Manual Therapy, Neuromuscular Re-education, Patient/Caregiver Education, Self-Care/Home Management,Soft Tissue Mobilization,Taping, Therapeutic Activities, Therapeutic Exercises Modalities Cold Pack/Ice Massage,Electric Stimulation,Hot Packs Next Visit Focus/Plan Next Note Type Treatment Note Next Visit Plan side steps, balance board, toe taps w/wt on LEs, seated stepper, leg press Plan of Care Dates Plan of Care Start Date 04/18/20 Plan of Care End Date 06/18/20 Electronically Signed by: Sylvia Christopher, PT 04/19/20 0825 Please Sign and Return: I have reviewed this Plan of Care and certify that the skilled therapy services above are required to meet the patient?s needs. Physician Signature Date Printed Name and Credentials Clinical Instructor Signature Printed Name and Credentials
--- NOTE | 2020-04-27 17:37 | PT.OTN ---
Current Diagnoses Spondylolisthesis, site unspecified (04/27/20) Difficulty in walking, not elsewhere classified (04/27/20) Abnormal posture (04/27/20) Weakness (04/27/20) Physical Therapy Treatment Note PT-OP-A Visit Information Start: 04/18/20 13:00 Freq: Status: Active Protocol: Document 04/27/20 16:50 [facility] (Rec: 04/27/20 17:37 [facility] [id number]) Out-Patient Physical Therapy Visit Information Visit Information Visit Type Treatment Note Visit Note 08/09 Visit Start Time 16:46 Visit Stop Time 17:30 Total Visit Minutes 44 Visit Number 2 Number of LOOPING INSPECTOR Visits 0 PT-OP-B Current Condition Start: 04/18/20 13:00 Freq: Status: Active Protocol: Document 04/18/20 14:33 [facility] (Rec: 04/18/20 15:18 [facility] [id number]) Current Condition History of Current Condition Onset Date December 26 Current Complaints LB & R>L leg History of Current Condition Pt reports being hospitalized for infected finger and felt like was off balance and weak since then. She was doing great since last bout of therapy until this. Pt reprots RLE sometimes feels like it is going to give out when she stands up. REports cont to do PT exercises. Pt reprots R leg , R hip and back has been bothering her. Since infection she has had inc difficulty getting up out of chair. Pt reports back and R leg bothers her when she walks a 1 mile or 2 miles. She typically has to lean against something to dec back painb ut it doesn't help her leg. Pt can only stand for 30 min or less but has to sit for a min to relieve pain Prior Treatments and Tests PT helped a lot in past mult times. Treatment Goals Patient/Caregiver Goals Dec pain, improve ability to walk with less pain, be able to get out of chair easier, be able to get up/down from tub & up/down from floor, improve abilityt o put L sock/shoe on PT-OP-C Subjective Start: 04/18/20 13:00 Freq: Status: Active Protocol: Document 04/27/20 16:50 [facility] (Rec: 04/27/20 17:37 [facility] [id number]) OP-PT Subjective Patient Comments Patient Comments Pt reports a half a cord of wood today. PT-OP-E Functional Tests Start: 04/18/20 13:00 Freq: Status: Active Protocol: Document 04/18/20 14:33 [facility] (Rec: 04/18/20 15:18 [facility] [id number]) Functional Tests 30 Second Sit to Stand Test Score 9 Five Times Sit to Stand Test Score 15 sec Functional Gait Assessment Score 17 PT-OP-F Manual Assessment Start: 04/18/20 13:00 Freq: Status: Active Protocol: Document 04/18/20 14:33 [facility] (Rec: 04/18/20 15:18 [facility] [id number]) Manual Assessments Soft Tissue Assessment Soft Tissue Mobility Assessment L>R ES & QL tightness, R glute & pifiromis tightness, R iliacus & quads Joint Mobility Assessment Joint Mobility Assessment R illiac crest higher, equal greater trochanters PT-OP-G Mobility & Gait Start: 04/18/20 13:00 Freq: Status: Active Protocol: Document 04/18/20 14:33 [facility] (Rec: 04/18/20 15:18 [facility] [id number]) OP Gait Assessment Comments Gait Comments Pt has lat leaning with gait w / dec push off B PT-OP-J Posture/Palpation/Skin Start: 04/18/20 13:00 Freq: Status: Active Protocol: Document 04/18/20 14:33 [facility] (Rec: 04/18/20 15:18 [facility] [id number]) Posture Evaluation Andres Postural Classification System Elbow Flexion Test 1 Lumbar Protective Mechanism Left AP 0 Lumbar Protective Mechanism Right AP 0 Lumbar Protective Mechanism Left PA 0 Lumbar Protective Mechanism Right PA 0 Comments Posture Comments scolosis, kyphosis & fwd head, R shear of pelvis, L iliac crest higher, valgus knees PT-OP-K Range of Motion Start: 04/18/20 13:00 Freq: Status: Active Protocol: Document 04/18/20 14:33 [facility] (Rec: 04/18/20 15:18 [facility] [id number]) Lumbar Spine Range of Motion Lumbar Spine Active Degrees Flexion 55 Extension 12 Rotation Left 21 Rotation Right 20 Lateral Flexion Left 10 Lateral Flexion Right 12 Comments pain w/ext & L SB PT-OP-L Special Tests Start: 04/18/20 13:00 Freq: Status: Active Protocol: Document 04/18/20 14:33 [facility] (Rec: 04/18/20 15:18 [facility] [id number]) Special Tests Lumbar Spine Special Tests Tay Test Results L mild iliacus & RF tightness SLR Test Results L 79 deg, R 70 deg Slump Test Results neg B PT-OP-M Strength Start: 04/18/20 13:00 Freq: Status: Active Protocol: Document 04/18/20 14:33 [facility] (Rec: 04/18/20 15:18 [facility] [id number]) Hip Strength Hip Manual Muscle Testing Right Flexion (L2) 3+ Fair+ Extension (S1) 3 Fair Abduction 3+ Fair+ External Rotation 3+ Fair+ Internal Rotation 3 Fair Left Flexion (L2) 3 Fair Extension (S1) 3 Fair Abduction 3 Fair External Rotation 3+ Fair+ Internal Rotation 3+ Fair+ Knee Strength Knee Manual Muscle Testing Right Flexion (S2) 4- Good- Extension (L3) 4 Good Left Flexion (S2) 4 Good Extension (L3) 4- Good- Ankle/Foot Strength Ankle and Foot Manual Muscle Testing Left Dorsiflexion (L4) 5 Normal Plantarflexion (S1) 5 Normal Right Dorsiflexion (L4) 5 Normal Plantarflexion (S1) 5 Normal Comments seated PF tested B PT-OP-Q Treatments Start: 04/18/20 13:00 Freq: Status: Active Protocol: Document 04/27/20 16:50 [facility] (Rec: 04/27/20 17:37 [facility] [id number]) Cardio Equipment Recumbent Elliptical (Biodex) Duration (Minutes) 6 Resistance 6-8 Seat Position 8 Gym Equipment Shuttle Recovery Unilateral Squats Details Bilaterally Resistance 50# Shuttle Recovery Platform Stable Reps/Time 2x10 reps Bilateral Squats Details cueing to have feet apart and avoid knees knocking Resistance 100 Shuttle Recovery Platform Stable Reps/Time 2x10 Shuttle Balance red clips Comments fwd & side: WBOS fwd: NBOS Therapeutic Exercises Sidelying Exercises abd Side bilateral Reps/Minutes 15 Comments cueing to keep hips aligned, keep knee straight. ER Side bilateral Reps/Minutes 15 Comments focus on not rolling Standing Exercises hip hike Standing Exercise Name 4in step Side bilateral Equipment Used rail Reps/Minutes 10 hip ext Side bilateral Equipment Used L1 Reps/Minutes 15 side step Side bilateral Resistance yellow band Reps/Minutes 20ftx2 Manual Therapy Treatment Soft Tissue Mobilization HS Body Location R proximal HS & inf glutes Mobilization Type Rolling,Strumming,Sustained Pressure Intensity/Depth Moderate Body Position Sidelying Neuro Re-Education Treatment Balance Activities hurdles Details stepping over hurdles Comments 4x side step 8x fwd PT-OP-T Assessment and Plan Start: 04/18/20 13:00 Freq: Status: Active Protocol: Document 04/27/20 16:50 [facility] (Rec: 04/27/20 17:37 [facility] [id number]) Physical Therapy Assessment Goals sit to stand Short Term Goal (STG) Pt will be able to do 5x sit to boat outboard engine mechanic 12 sec to show inc strength and dec risk for falls. STG Duration 05/19/20 [facility]cf Goal (LTG) Pt will be able to do 13 sit to stands in 30 sec to show improved strength and dec risk for falls. LTG Duration 06/18/20 strength Short Term Goal (STG) Pt will be indep with HEP STG Duration 05/19/20 Actuarial Consultant Goal (LTG) Pt will score 4+/5 for all LE motions to make pt have greater ease with getting around. LTG Duration 06/18/20 FGA Impairment FGA 17/30 Actuarial Consultant Goal (LTG) Pt will score 25/30 on FGA to show dec risk for falls. LTG Duration 06/18/20 oswestry Impairment 17/50 Actuarial Consultant Goal (LTG) Pt will improve score to 7/50 in order to show improved functional ability LTG Duration 06/18/20 Assessment Summary Assessment Pt required cueing for slow and controlled motion with exercises. Cueing to avoid IR of LLE. Pt was challenged by balance board and trying keep neutral positioning with side stepping. Pt had dec pain after manual Physical Therapy Plan Frequency and Duration Frequency of Treatment 2x/Week Duration of Treatment 2 months Plan of Care Start Date 04/18/20 Plan of Care End Date 06/18/20 Next Visit Focus/Plan Next Note Type Treatment Note Next Visit Plan cont to worko n leg strength & balance
--- NOTE | 2020-05-02 10:31 | PT.OTN ---
Current Diagnoses Spondylolisthesis, site unspecified (05/02/20) Difficulty in walking, not elsewhere classified (05/02/20) Abnormal posture (05/02/20) Weakness (05/02/20) Physical Therapy Treatment Note PT-OP-A Visit Information Start: 04/18/20 13:00 Freq: Status: Active Protocol: Document 05/02/20 09:11 [facility] (Rec: 05/02/20 10:30 [facility] [id number]) Out-Patient Physical Therapy Visit Information Visit Information Visit Type Treatment Note Visit Note 09/06 Visit Start Time 09:03 Visit Stop Time 09:43 Total Visit Minutes 40 Visit Number 3 Number of REDUCING MACHINE OPERATOR Visits 0 PT-OP-B Current Condition Start: 04/18/20 13:00 Freq: Status: Active Protocol: Document 04/18/20 14:33 [facility] (Rec: 04/18/20 15:18 [facility] [id number]) Current Condition History of Current Condition Onset Date December 26 Current Complaints LB & R>L leg History of Current Condition Pt reports being hospitalized for infected finger and felt like was off balance and weak since then. She was doing great since last bout of therapy until this. Pt reprots RLE sometimes feels like it is going to give out when she stands up. REports cont to do PT exercises. Pt reprots R leg , R hip and back has been bothering her. Since infection she has had inc difficulty getting up out of chair. Pt reports back and R leg bothers her when she walks a 1 mile or 2 miles. She typically has to lean against something to dec back painb ut it doesn't help her leg. Pt can only stand for 30 min or less but has to sit for a min to relieve pain Prior Treatments and Tests PT helped a lot in past mult times. Treatment Goals Patient/Caregiver Goals Dec pain, improve ability to walk with less pain, be able to get out of chair easier, be able to get up/down from tub & up/down from floor, improve abilityt o put L sock/shoe on PT-OP-C Subjective Start: 04/18/20 13:00 Freq: Status: Active Protocol: Document 05/02/20 09:11 [facility] (Rec: 05/02/20 10:30 [facility] [id number]) OP-PT Subjective Patient Comments Patient Comments Pt reports feeling much better after manual treatment Patient Reported Progress Improving PT-OP-E Functional Tests Start: 04/18/20 13:00 Freq: Status: Active Protocol: Document 04/18/20 14:33 [facility] (Rec: 04/18/20 15:18 [facility] [id number]) Functional Tests 30 Second Sit to Stand Test Score 9 Five Times Sit to Stand Test Score 15 sec Functional Gait Assessment Score 17 PT-OP-F Manual Assessment Start: 04/18/20 13:00 Freq: Status: Active Protocol: Document 04/18/20 14:33 [facility] (Rec: 04/18/20 15:18 [facility] [id number]) Manual Assessments Soft Tissue Assessment Soft Tissue Mobility Assessment L>R ES & QL tightness, R glute & pifiromis tightness, R iliacus & quads Joint Mobility Assessment Joint Mobility Assessment R illiac crest higher, equal greater trochanters PT-OP-G Mobility & Gait Start: 04/18/20 13:00 Freq: Status: Active Protocol: Document 04/18/20 14:33 [facility] (Rec: 04/18/20 15:18 [facility] [id number]) OP Gait Assessment Comments Gait Comments Pt has lat leaning with gait w / dec push off B PT-OP-J Posture/Palpation/Skin Start: 04/18/20 13:00 Freq: Status: Active Protocol: Document 04/18/20 14:33 [facility] (Rec: 04/18/20 15:18 [facility] [id number]) Posture Evaluation Andres Postural Classification System Elbow Flexion Test 1 Lumbar Protective Mechanism Left AP 0 Lumbar Protective Mechanism Right AP 0 Lumbar Protective Mechanism Left PA 0 Lumbar Protective Mechanism Right PA 0 Comments Posture Comments scolosis, kyphosis & fwd head, R shear of pelvis, L iliac crest higher, valgus knees PT-OP-K Range of Motion Start: 04/18/20 13:00 Freq: Status: Active Protocol: Document 04/18/20 14:33 [facility] (Rec: 04/18/20 15:18 [facility] [id number]) Lumbar Spine Range of Motion Lumbar Spine Active Degrees Flexion 55 Extension 12 Rotation Left 21 Rotation Right 20 Lateral Flexion Left 10 Lateral Flexion Right 12 Comments pain w/ext & L SB PT-OP-L Special Tests Start: 04/18/20 13:00 Freq: Status: Active Protocol: Document 04/18/20 14:33 [facility] (Rec: 04/18/20 15:18 [facility] [id number]) Special Tests Lumbar Spine Special Tests Tay Test Results L mild iliacus & RF tightness SLR Test Results L 79 deg, R 70 deg Slump Test Results neg B PT-OP-M Strength Start: 04/18/20 13:00 Freq: Status: Active Protocol: Document 04/18/20 14:33 [facility] (Rec: 04/18/20 15:18 [facility] [id number]) Hip Strength Hip Manual Muscle Testing Right Flexion (L2) 3+ Fair+ Extension (S1) 3 Fair Abduction 3+ Fair+ External Rotation 3+ Fair+ Internal Rotation 3 Fair Left Flexion (L2) 3 Fair Extension (S1) 3 Fair Abduction 3 Fair External Rotation 3+ Fair+ Internal Rotation 3+ Fair+ Knee Strength Knee Manual Muscle Testing Right Flexion (S2) 4- Good- Extension (L3) 4 Good Left Flexion (S2) 4 Good Extension (L3) 4- Good- Ankle/Foot Strength Ankle and Foot Manual Muscle Testing Left Dorsiflexion (L4) 5 Normal Plantarflexion (S1) 5 Normal Right Dorsiflexion (L4) 5 Normal Plantarflexion (S1) 5 Normal Comments seated PF tested B PT-OP-Q Treatments Start: 04/18/20 13:00 Freq: Status: Active Protocol: Document 05/02/20 09:11 [facility] (Rec: 05/02/20 10:30 [facility] [id number]) Cardio Equipment Recumbent Elliptical (Biodex) Duration (Minutes) 7 Resistance 7-8 Seat Position 8 Gym Equipment Shuttle Recovery Unilateral Squats Details Bilaterally Resistance 50# Shuttle Recovery Platform Stable Reps/Time 2x15 reps Bilateral Squats Details cueing to have feet apart and avoid knees knocking Resistance 100 Shuttle Recovery Platform Stable Reps/Time 2x10 Shuttle Balance red clips Comments fwd & side: WBOS, NBOS Therapeutic Exercises Standing Exercises hip hike Standing Exercise Name 4in step Side bilateral Equipment Used rail Reps/Minutes 10 hip ext Side bilateral Equipment Used L1 Reps/Minutes 15 Squat at railing Standing Exercise Name Standing Squat Equipment Used Wall rail for support when lowering Reps/Minutes 10x Comments cue to keep knees out resisted walk Standing Exercise Name fwd/back Side bilateral Equipment Used yellow tband Reps/Minutes 20ftx2 side step Side bilateral Resistance yellow band Reps/Minutes 20ftx2 Manual Therapy Treatment Soft Tissue Mobilization glutes Body Location R and along sacral border Mobilization Type Sustained Pressure Intensity/Depth Moderate Body Position Sidelying PT-OP-T Assessment and Plan Start: 04/18/20 13:00 Freq: Status: Active Protocol: Document 05/02/20 09:11 [facility] (Rec: 05/02/20 10:30 [facility] [id number]) Physical Therapy Assessment Goals sit to stand Short Term Goal (STG) Pt will be able to do 5x sit to clinical trial assistant 12 sec to show inc strength and dec risk for falls. STG Duration 05/19/20 Group Home Goal (LTG) Pt will be able to do 13 sit to stands in 30 sec to show improved strength and dec risk for falls. LTG Duration 06/18/20 strength Short Term Goal (STG) Pt will be indep with HEP STG Duration 05/19/20 Pharmacy Delivery Driver Goal (LTG) Pt will score 4+/5 for all LE motions to make pt have greater ease with getting around. LTG Duration 06/18/20 FGA Impairment FGA 17/30 Pharmacy Delivery Driver Goal (LTG) Pt will score 25/30 on FGA to show dec risk for falls. LTG Duration 06/18/20 oswestry Impairment 17/50 Pharmacy Delivery Driver Goal (LTG) Pt will improve score to 7/50 in order to show improved functional ability LTG Duration 06/18/20 Assessment Summary Assessment Pt did better with exercises today but still needed cueing for posture an avoiding lat or fwd leanin with standing exercises. Physical Therapy Plan Frequency and Duration Frequency of Treatment 2x/Week Duration of Treatment 2 months Plan of Care Start Date 04/18/20 Plan of Care End Date 06/18/20 Next Visit Focus/Plan Next Note Type Treatment Note Next Visit Plan cont to worko n leg strength & balance
--- NOTE | 2020-05-04 16:02 | PT.OTN ---
Current Diagnoses Spondylolisthesis, site unspecified (05/04/20) Difficulty in walking, not elsewhere classified (05/04/20) Abnormal posture (05/04/20) Weakness (05/04/20) Physical Therapy Treatment Note PT-OP-A Visit Information Start: 04/18/20 13:00 Freq: Status: Active Protocol: Document 05/04/20 15:20 [facility] (Rec: 05/04/20 16:01 [facility] [id number]) Out-Patient Physical Therapy Visit Information Visit Information Visit Type Treatment Note Visit Note 10/07 Visit Start Time 15:17 Visit Stop Time 15:57 Total Visit Minutes 40 Visit Number 4 Number of THREAD WINDER Visits 0 PT-OP-B Current Condition Start: 04/18/20 13:00 Freq: Status: Active Protocol: Document 04/18/20 14:33 [facility] (Rec: 04/18/20 15:18 [facility] [id number]) Current Condition History of Current Condition Onset Date December 26 Current Complaints LB & R>L leg History of Current Condition Pt reports being hospitalized for infected finger and felt like was off balance and weak since then. She was doing great since last bout of therapy until this. Pt reprots RLE sometimes feels like it is going to give out when she stands up. REports cont to do PT exercises. Pt reprots R leg , R hip and back has been bothering her. Since infection she has had inc difficulty getting up out of chair. Pt reports back and R leg bothers her when she walks a 1 mile or 2 miles. She typically has to lean against something to dec back painb ut it doesn't help her leg. Pt can only stand for 30 min or less but has to sit for a min to relieve pain Prior Treatments and Tests PT helped a lot in past mult times. Treatment Goals Patient/Caregiver Goals Dec pain, improve ability to walk with less pain, be able to get out of chair easier, be able to get up/down from tub & up/down from floor, improve abilityt o put L sock/shoe on PT-OP-C Subjective Start: 04/18/20 13:00 Freq: Status: Active Protocol: Document 05/04/20 15:20 [facility] (Rec: 05/04/20 16:01 [facility] [id number]) OP-PT Subjective Patient Comments Patient Comments Pt reports she feels like her pain is better Patient Reported Progress Improving PT-OP-E Functional Tests Start: 04/18/20 13:00 Freq: Status: Active Protocol: Document 04/18/20 14:33 [facility] (Rec: 04/18/20 15:18 [facility] [id number]) Functional Tests 30 Second Sit to Stand Test Score 9 Five Times Sit to Stand Test Score 15 sec Functional Gait Assessment Score 17 PT-OP-F Manual Assessment Start: 04/18/20 13:00 Freq: Status: Active Protocol: Document 04/18/20 14:33 [facility] (Rec: 04/18/20 15:18 [facility] [id number]) Manual Assessments Soft Tissue Assessment Soft Tissue Mobility Assessment L>R ES & QL tightness, R glute & pifiromis tightness, R iliacus & quads Joint Mobility Assessment Joint Mobility Assessment R illiac crest higher, equal greater trochanters PT-OP-G Mobility & Gait Start: 04/18/20 13:00 Freq: Status: Active Protocol: Document 04/18/20 14:33 [facility] (Rec: 04/18/20 15:18 [facility] [id number]) OP Gait Assessment Comments Gait Comments Pt has lat leaning with gait w / dec push off B PT-OP-J Posture/Palpation/Skin Start: 04/18/20 13:00 Freq: Status: Active Protocol: Document 04/18/20 14:33 [facility] (Rec: 04/18/20 15:18 [facility] [id number]) Posture Evaluation Andres Postural Classification System Elbow Flexion Test 1 Lumbar Protective Mechanism Left AP 0 Lumbar Protective Mechanism Right AP 0 Lumbar Protective Mechanism Left PA 0 Lumbar Protective Mechanism Right PA 0 Comments Posture Comments scolosis, kyphosis & fwd head, R shear of pelvis, L iliac crest higher, valgus knees PT-OP-K Range of Motion Start: 04/18/20 13:00 Freq: Status: Active Protocol: Document 04/18/20 14:33 [facility] (Rec: 04/18/20 15:18 [facility] [id number]) Lumbar Spine Range of Motion Lumbar Spine Active Degrees Flexion 55 Extension 12 Rotation Left 21 Rotation Right 20 Lateral Flexion Left 10 Lateral Flexion Right 12 Comments pain w/ext & L SB PT-OP-L Special Tests Start: 04/18/20 13:00 Freq: Status: Active Protocol: Document 04/18/20 14:33 [facility] (Rec: 04/18/20 15:18 [facility] [id number]) Special Tests Lumbar Spine Special Tests Tay Test Results L mild iliacus & RF tightness SLR Test Results L 79 deg, R 70 deg Slump Test Results neg B PT-OP-M Strength Start: 04/18/20 13:00 Freq: Status: Active Protocol: Document 04/18/20 14:33 [facility] (Rec: 04/18/20 15:18 [facility] [id number]) Hip Strength Hip Manual Muscle Testing Right Flexion (L2) 3+ Fair+ Extension (S1) 3 Fair Abduction 3+ Fair+ External Rotation 3+ Fair+ Internal Rotation 3 Fair Left Flexion (L2) 3 Fair Extension (S1) 3 Fair Abduction 3 Fair External Rotation 3+ Fair+ Internal Rotation 3+ Fair+ Knee Strength Knee Manual Muscle Testing Right Flexion (S2) 4- Good- Extension (L3) 4 Good Left Flexion (S2) 4 Good Extension (L3) 4- Good- Ankle/Foot Strength Ankle and Foot Manual Muscle Testing Left Dorsiflexion (L4) 5 Normal Plantarflexion (S1) 5 Normal Right Dorsiflexion (L4) 5 Normal Plantarflexion (S1) 5 Normal Comments seated PF tested B PT-OP-Q Treatments Start: 04/18/20 13:00 Freq: Status: Active Protocol: Document 05/04/20 15:20 [facility] (Rec: 05/04/20 16:01 [facility] [id number]) Cardio Equipment Recumbent Elliptical (Biodex) Duration (Minutes) 7 Resistance 7-8 Seat Position 8 Gym Equipment Shuttle Recovery Unilateral Squats Details Bilaterally Resistance 62# Shuttle Recovery Platform Stable Reps/Time 2x15 reps Bilateral Squats Details cueing to have feet apart and avoid knees knocking Resistance 100 Shuttle Recovery Platform Stable Reps/Time 2x10 Shuttle Balance red clips Comments fwd & side: WBOS, NBOS Therapeutic Exercises Standing Exercises hip hike Standing Exercise Name 4in step Side bilateral Equipment Used rail Reps/Minutes 10 hip ext Side bilateral Equipment Used L1 Reps/Minutes 15 Squat at railing Standing Exercise Name Standing Squat Equipment Used Wall rail for support when lowering Reps/Minutes 15x Comments cue tfor butt more post resisted walk Standing Exercise Name fwd/back Side bilateral Equipment Used yellow tband Reps/Minutes 20ftx2 side step Side bilateral Resistance yellow band Reps/Minutes 20ftx2 Manual Therapy Treatment Soft Tissue Mobilization glutes Body Location R sup glute Mobilization Type Sustained Pressure Intensity/Depth Moderate Body Position Sidelying QL, paraspinals, ES Body Location R along iliac crest border Mobilization Type Rolling,Sustained Pressure Intensity/Depth Moderate Body Position Sidelying Neuro Re-Education Treatment Balance Activities Rocker Board Details fwd/back &side<>side wt shifts PT-OP-T Assessment and Plan Start: 04/18/20 13:00 Freq: Status: Active Protocol: Document 05/04/20 15:20 [facility] (Rec: 05/04/20 16:01 [facility] [id number]) Physical Therapy Assessment Goals sit to stand Short Term Goal (STG) Pt will be able to do 5x sit to business partner 12 sec to show inc strength and dec risk for falls. STG Duration 05/19/20 Prison Goal (LTG) Pt will be able to do 13 sit to stands in 30 sec to show improved strength and dec risk for falls. LTG Duration 06/18/20 strength Short Term Goal (STG) Pt will be indep with HEP STG Duration 05/19/20 Senior Wind Turbine Technician Goal (LTG) Pt will score 4+/5 for all LE motions to make pt have greater ease with getting around. LTG Duration 06/18/20 FGA Impairment FGA 17/30 Senior Wind Turbine Technician Goal (LTG) Pt will score 25/30 on FGA to show dec risk for falls. LTG Duration 06/18/20 oswestry Impairment 17/50 Prison Goal (LTG) Pt will improve score to 7/50 in order to show improved functional ability LTG Duration 06/18/20 Assessment Summary Assessment Pt still required cueing for posture with exercises but did well with strengthening with inc reps and/or inc weight with some. Balance cont to be challenging on uneven surfaces Physical Therapy Plan Frequency and Duration Frequency of Treatment 2x/Week Duration of Treatment 2 months Plan of Care Start Date 04/18/20 Plan of Care End Date 06/18/20 Next Visit Focus/Plan Next Note Type Treatment Note Next Visit Plan cont to work on leg strength & balance
--- NOTE | 2020-05-10 09:03 | PT.OTN ---
Current Diagnoses Spondylolisthesis, site unspecified (05/10/20) Difficulty in walking, not elsewhere classified (05/10/20) Abnormal posture (05/10/20) Weakness (05/10/20) Physical Therapy Treatment Note PT-OP-A Visit Information Start: 04/18/20 13:00 Freq: Status: Active Protocol: Document 05/10/20 08:18 [facility] (Rec: 05/10/20 09:03 [facility] [id number]) Out-Patient Physical Therapy Visit Information Visit Information Visit Type Treatment Note Visit Start Time 08:15 Visit Stop Time 08:56 Total Visit Minutes 41 Visit Number 5 Number of REGIONAL OPERATIONS DIRECTOR Visits 0 PT-OP-B Current Condition Start: 04/18/20 13:00 Freq: Status: Active Protocol: Document 04/18/20 14:33 [facility] (Rec: 04/18/20 15:18 [facility] [id number]) Current Condition History of Current Condition Onset Date December 26 Current Complaints LB & R>L leg History of Current Condition Pt reports being hospitalized for infected finger and felt like was off balance and weak since then. She was doing great since last bout of therapy until this. Pt reprots RLE sometimes feels like it is going to give out when she stands up. REports cont to do PT exercises. Pt reprots R leg , R hip and back has been bothering her. Since infection she has had inc difficulty getting up out of chair. Pt reports back and R leg bothers her when she walks a 1 mile or 2 miles. She typically has to lean against something to dec back painb ut it doesn't help her leg. Pt can only stand for 30 min or less but has to sit for a min to relieve pain Prior Treatments and Tests PT helped a lot in past mult times. Treatment Goals Patient/Caregiver Goals Dec pain, improve ability to walk with less pain, be able to get out of chair easier, be able to get up/down from tub & up/down from floor, improve abilityt o put L sock/shoe on PT-OP-C Subjective Start: 04/18/20 13:00 Freq: Status: Active Protocol: Document 05/10/20 08:18 [facility] (Rec: 05/10/20 09:03 [facility] [id number]) OP-PT Subjective Patient Comments Patient Comments Pt reports feeling pretty good . Pt finished chopping her wood and worked on their boat. Pt reports since manual she is noticing pain a lot less Patient Reported Progress Improving PT-OP-E Functional Tests Start: 04/18/20 13:00 Freq: Status: Active Protocol: Document 04/18/20 14:33 [facility] (Rec: 04/18/20 15:18 [facility] [id number]) Functional Tests 30 Second Sit to Stand Test Score 9 Five Times Sit to Stand Test Score 15 sec Functional Gait Assessment Score 17 PT-OP-F Manual Assessment Start: 04/18/20 13:00 Freq: Status: Active Protocol: Document 04/18/20 14:33 [facility] (Rec: 04/18/20 15:18 [facility] [id number]) Manual Assessments Soft Tissue Assessment Soft Tissue Mobility Assessment L>R ES & QL tightness, R glute & pifiromis tightness, R iliacus & quads Joint Mobility Assessment Joint Mobility Assessment R illiac crest higher, equal greater trochanters PT-OP-G Mobility & Gait Start: 04/18/20 13:00 Freq: Status: Active Protocol: Document 04/18/20 14:33 [facility] (Rec: 04/18/20 15:18 [facility] [id number]) OP Gait Assessment Comments Gait Comments Pt has lat leaning with gait w / dec push off B PT-OP-J Posture/Palpation/Skin Start: 04/18/20 13:00 Freq: Status: Active Protocol: Document 04/18/20 14:33 [facility] (Rec: 04/18/20 15:18 [facility] [id number]) Posture Evaluation Andres Postural Classification System Elbow Flexion Test 1 Lumbar Protective Mechanism Left AP 0 Lumbar Protective Mechanism Right AP 0 Lumbar Protective Mechanism Left PA 0 Lumbar Protective Mechanism Right PA 0 Comments Posture Comments scolosis, kyphosis & fwd head, R shear of pelvis, L iliac crest higher, valgus knees PT-OP-K Range of Motion Start: 04/18/20 13:00 Freq: Status: Active Protocol: Document 04/18/20 14:33 [facility] (Rec: 04/18/20 15:18 [facility] [id number]) Lumbar Spine Range of Motion Lumbar Spine Active Degrees Flexion 55 Extension 12 Rotation Left 21 Rotation Right 20 Lateral Flexion Left 10 Lateral Flexion Right 12 Comments pain w/ext & L SB PT-OP-L Special Tests Start: 04/18/20 13:00 Freq: Status: Active Protocol: Document 04/18/20 14:33 [facility] (Rec: 04/18/20 15:18 [facility] [id number]) Special Tests Lumbar Spine Special Tests Tay Test Results L mild iliacus & RF tightness SLR Test Results L 79 deg, R 70 deg Slump Test Results neg B PT-OP-M Strength Start: 04/18/20 13:00 Freq: Status: Active Protocol: Document 04/18/20 14:33 [facility] (Rec: 04/18/20 15:18 [facility] [id number]) Hip Strength Hip Manual Muscle Testing Right Flexion (L2) 3+ Fair+ Extension (S1) 3 Fair Abduction 3+ Fair+ External Rotation 3+ Fair+ Internal Rotation 3 Fair Left Flexion (L2) 3 Fair Extension (S1) 3 Fair Abduction 3 Fair External Rotation 3+ Fair+ Internal Rotation 3+ Fair+ Knee Strength Knee Manual Muscle Testing Right Flexion (S2) 4- Good- Extension (L3) 4 Good Left Flexion (S2) 4 Good Extension (L3) 4- Good- Ankle/Foot Strength Ankle and Foot Manual Muscle Testing Left Dorsiflexion (L4) 5 Normal Plantarflexion (S1) 5 Normal Right Dorsiflexion (L4) 5 Normal Plantarflexion (S1) 5 Normal Comments seated PF tested B PT-OP-Q Treatments Start: 04/18/20 13:00 Freq: Status: Active Protocol: Document 05/10/20 08:18 [facility] (Rec: 05/10/20 09:03 [facility] [id number]) Cardio Equipment Recumbent Elliptical (Biodex) Duration (Minutes) 7 Resistance 8 Seat Position 8 Gym Equipment Shuttle Recovery Unilateral Squats Details Bilaterally Resistance 62# Shuttle Recovery Platform Stable Reps/Time 2x10 reps Bilateral Squats Details cueing to have feet apart and avoid knees knocking Resistance 100 Shuttle Recovery Platform Stable Reps/Time 2x15 Shuttle Balance red clips Comments fwd & side: WBOS, NBOS Therapeutic Exercises Standing Exercises side step Side bilateral Resistance yellow band Reps/Minutes 20ftx2 Manual Therapy Treatment Soft Tissue Mobilization glutes Body Location R sup glute & sacral border Mobilization Type Sustained Pressure Intensity/Depth Moderate Body Position Sidelying Neuro Re-Education Treatment Balance Activities Tandem Details Tandem gait then tandem stance trials Surface firm and level hurdles Details stepping over hurdles Comments fwd x2 fwd over hurdles w/foam on either end x4 fwd over hurdles w/foam on either end and 2 throughout bluex4 PT-OP-T Assessment and Plan Start: 04/18/20 13:00 Freq: Status: Active Protocol: Document 05/10/20 08:18 [facility] (Rec: 05/10/20 09:03 [facility] [id number]) Physical Therapy Assessment Goals sit to stand Short Term Goal (STG) Pt will be able to do 5x sit to bellstand attendant 12 sec to show inc strength and dec risk for falls. STG Duration 05/19/20 Usp Goal (LTG) Pt will be able to do 13 sit to stands in 30 sec to show improved strength and dec risk for falls. LTG Duration 06/18/20 strength Short Term Goal (STG) Pt will be indep with HEP STG Duration 05/19/20 Usp Goal (LTG) Pt will score 4+/5 for all LE motions to make pt have greater ease with getting around. LTG Duration 06/18/20 FGA Impairment FGA 17/30 Usp Goal (LTG) Pt will score 25/30 on FGA to show dec risk for falls. LTG Duration 06/18/20 oswestry Impairment 17/50 Director Of Public Relations Goal (LTG) Pt will improve score to 7/50 in order to show improved functional ability LTG Duration 06/18/20 Assessment Summary Assessment Pt did well with balance activities and cont to improve . Pt did well with strengthening today with less cueing. Physical Therapy Plan Frequency and Duration Frequency of Treatment 2x/Week Duration of Treatment 2 months Plan of Care Start Date 04/18/20 Plan of Care End Date 06/18/20 Next Visit Focus/Plan Next Note Type Treatment Note Next Visit Plan cont to work on leg strength & balance
--- NOTE | 2020-05-15 09:01 | PT.OTN ---
Current Diagnoses Spondylolisthesis, site unspecified (05/15/20) Difficulty in walking, not elsewhere classified (05/15/20) Abnormal posture (05/15/20) Weakness (05/15/20) Physical Therapy Treatment Note PT-OP-A Visit Information Start: 04/18/20 13:00 Freq: Status: Active Protocol: Document 05/15/20 08:20 [facility] (Rec: 05/15/20 09:00 [facility] [id number]) Out-Patient Physical Therapy Visit Information Visit Information Visit Type Treatment Note Visit Note 12/07 Visit Start Time 08:17 Visit Stop Time 08:57 Total Visit Minutes 40 Visit Number 6 Number of PIECER Visits 0 PT-OP-B Current Condition Start: 04/18/20 13:00 Freq: Status: Active Protocol: Document 04/18/20 14:33 [facility] (Rec: 04/18/20 15:18 [facility] [id number]) Current Condition History of Current Condition Onset Date December 26 Current Complaints LB & R>L leg History of Current Condition Pt reports being hospitalized for infected finger and felt like was off balance and weak since then. She was doing great since last bout of therapy until this. Pt reprots RLE sometimes feels like it is going to give out when she stands up. REports cont to do PT exercises. Pt reprots R leg , R hip and back has been bothering her. Since infection she has had inc difficulty getting up out of chair. Pt reports back and R leg bothers her when she walks a 1 mile or 2 miles. She typically has to lean against something to dec back painb ut it doesn't help her leg. Pt can only stand for 30 min or less but has to sit for a min to relieve pain Prior Treatments and Tests PT helped a lot in past mult times. Treatment Goals Patient/Caregiver Goals Dec pain, improve ability to walk with less pain, be able to get out of chair easier, be able to get up/down from tub & up/down from floor, improve abilityt o put L sock/shoe on PT-OP-C Subjective Start: 04/18/20 13:00 Freq: Status: Active Protocol: Document 05/15/20 08:20 [facility] (Rec: 05/15/20 09:00 [facility] [id number]) OP-PT Subjective Patient Comments Patient Comments Pt reports she feels like she can stand up straigher now.Pt report sshe was able to squat down to reach a branch yesterday without LOB or needing assistance back up. Patient Reported Progress Improving PT-OP-E Functional Tests Start: 04/18/20 13:00 Freq: Status: Active Protocol: Document 04/18/20 14:33 [facility] (Rec: 04/18/20 15:18 [facility] [id number]) Functional Tests 30 Second Sit to Stand Test Score 9 Five Times Sit to Stand Test Score 15 sec Functional Gait Assessment Score 17 PT-OP-F Manual Assessment Start: 04/18/20 13:00 Freq: Status: Active Protocol: Document 04/18/20 14:33 [facility] (Rec: 04/18/20 15:18 [facility] [id number]) Manual Assessments Soft Tissue Assessment Soft Tissue Mobility Assessment L>R ES & QL tightness, R glute & pifiromis tightness, R iliacus & quads Joint Mobility Assessment Joint Mobility Assessment R illiac crest higher, equal greater trochanters PT-OP-G Mobility & Gait Start: 04/18/20 13:00 Freq: Status: Active Protocol: Document 04/18/20 14:33 [facility] (Rec: 04/18/20 15:18 [facility] [id number]) OP Gait Assessment Comments Gait Comments Pt has lat leaning with gait w / dec push off B PT-OP-J Posture/Palpation/Skin Start: 04/18/20 13:00 Freq: Status: Active Protocol: Document 04/18/20 14:33 [facility] (Rec: 04/18/20 15:18 [facility] [id number]) Posture Evaluation Andres Postural Classification System Elbow Flexion Test 1 Lumbar Protective Mechanism Left AP 0 Lumbar Protective Mechanism Right AP 0 Lumbar Protective Mechanism Left PA 0 Lumbar Protective Mechanism Right PA 0 Comments Posture Comments scolosis, kyphosis & fwd head, R shear of pelvis, L iliac crest higher, valgus knees PT-OP-K Range of Motion Start: 04/18/20 13:00 Freq: Status: Active Protocol: Document 04/18/20 14:33 [facility] (Rec: 04/18/20 15:18 [facility] [id number]) Lumbar Spine Range of Motion Lumbar Spine Active Degrees Flexion 55 Extension 12 Rotation Left 21 Rotation Right 20 Lateral Flexion Left 10 Lateral Flexion Right 12 Comments pain w/ext & L SB PT-OP-L Special Tests Start: 04/18/20 13:00 Freq: Status: Active Protocol: Document 04/18/20 14:33 [facility] (Rec: 04/18/20 15:18 [facility] [id number]) Special Tests Lumbar Spine Special Tests Tay Test Results L mild iliacus & RF tightness SLR Test Results L 79 deg, R 70 deg Slump Test Results neg B PT-OP-M Strength Start: 04/18/20 13:00 Freq: Status: Active Protocol: Document 04/18/20 14:33 [facility] (Rec: 04/18/20 15:18 [facility] [id number]) Hip Strength Hip Manual Muscle Testing Right Flexion (L2) 3+ Fair+ Extension (S1) 3 Fair Abduction 3+ Fair+ External Rotation 3+ Fair+ Internal Rotation 3 Fair Left Flexion (L2) 3 Fair Extension (S1) 3 Fair Abduction 3 Fair External Rotation 3+ Fair+ Internal Rotation 3+ Fair+ Knee Strength Knee Manual Muscle Testing Right Flexion (S2) 4- Good- Extension (L3) 4 Good Left Flexion (S2) 4 Good Extension (L3) 4- Good- Ankle/Foot Strength Ankle and Foot Manual Muscle Testing Left Dorsiflexion (L4) 5 Normal Plantarflexion (S1) 5 Normal Right Dorsiflexion (L4) 5 Normal Plantarflexion (S1) 5 Normal Comments seated PF tested B PT-OP-Q Treatments Start: 04/18/20 13:00 Freq: Status: Active Protocol: Document 05/15/20 08:20 [facility] (Rec: 05/15/20 09:00 [facility] [id number]) Cardio Equipment Recumbent Elliptical (Biodex) Duration (Minutes) 7 Resistance 8 Seat Position 8 Gym Equipment Shuttle Recovery Unilateral Squats Details Bilaterally Resistance 62# Shuttle Recovery Platform Stable Reps/Time 2x15 Bilateral Squats Details cueing to have feet apart and avoid knees knocking Resistance 100 Shuttle Recovery Platform Stable Reps/Time 2x15 Shuttle Balance red clips Comments fwd & side: WBOS, NBOS & wt shifts in WBOS fwd: staggered stance Therapeutic Exercises Standing Exercises heel raises Side bilateral Reps/Minutes 15x Squat at railing Equipment Used rail prn only Reps/Minutes 12x Comments focus on knees not past toes Neuro Re-Education Treatment Balance Activities bosu Details step up w/balance 3 sec Reps/Duration 10x B marching steps with hold in SLS Details toe taps Reps/Duration 2x15 Comments first set ot 16 in step and 2nd to 20 in step hurdles Details stepping over hurdles Comments fwd over hurdles w/foam on either end and 2 throughout bluex8 PT-OP-T Assessment and Plan Start: 04/18/20 13:00 Freq: Status: Active Protocol: Document 05/15/20 08:20 [facility] (Rec: 05/15/20 09:00 [facility] [id number]) Physical Therapy Assessment Goals sit to stand Short Term Goal (STG) Pt will be able to do 5x sit to precision machining instructor 12 sec to show inc strength and dec risk for falls. STG Duration 05/19/20 Engineering Mgr Goal (LTG) Pt will be able to do 13 sit to stands in 30 sec to show improved strength and dec risk for falls. LTG Duration 06/18/20 strength Short Term Goal (STG) Pt will be indep with HEP STG Duration 05/19/20 Engineering Mgr Goal (LTG) Pt will score 4+/5 for all LE motions to make pt have greater ease with getting around. LTG Duration 06/18/20 FGA Impairment FGA 17/30 Assisted Goal (LTG) Pt will score 25/30 on FGA to show dec risk for falls. LTG Duration 06/18/20 oswestry Impairment 17/50 Assisted Goal (LTG) Pt will improve score to 7/50 in order to show improved functional ability LTG Duration 06/18/20 Assessment Summary Assessment Pt did well with all exercises today with improvement with squats once cued and was able to go deeper without use of rail. Improved balance on balance board w/dec UE use for balance Physical Therapy Plan Frequency and Duration Frequency of Treatment 2x/Week Duration of Treatment 2 months Plan of Care Start Date 04/18/20 Plan of Care End Date 06/18/20 Next Visit Focus/Plan Next Note Type Treatment Note Next Visit Plan cont to work on leg strength & balance
--- NOTE | 2020-05-17 09:01 | PT.OTN ---
Current Diagnoses Spondylolisthesis, site unspecified (05/17/20) Difficulty in walking, not elsewhere classified (05/17/20) Abnormal posture (05/17/20) Weakness (05/17/20) Physical Therapy Treatment Note PT-OP-A Visit Information Start: 04/18/20 13:00 Freq: Status: Active Protocol: Document 05/17/20 08:24 [facility] (Rec: 05/17/20 09:01 [facility] [id number]) Out-Patient Physical Therapy Visit Information Visit Information Visit Type Treatment Note Visit Note 01/06 Visit Start Time 08:16 Visit Stop Time 08:56 Total Visit Minutes 40 Visit Number 7 Number of BARLEY STEEPER Visits 0 PT-OP-B Current Condition Start: 04/18/20 13:00 Freq: Status: Active Protocol: Document 04/18/20 14:33 [facility] (Rec: 04/18/20 15:18 [facility] [id number]) Current Condition History of Current Condition Onset Date December 26 Current Complaints LB & R>L leg History of Current Condition Pt reports being hospitalized for infected finger and felt like was off balance and weak since then. She was doing great since last bout of therapy until this. Pt reprots RLE sometimes feels like it is going to give out when she stands up. REports cont to do PT exercises. Pt reprots R leg , R hip and back has been bothering her. Since infection she has had inc difficulty getting up out of chair. Pt reports back and R leg bothers her when she walks a 1 mile or 2 miles. She typically has to lean against something to dec back painb ut it doesn't help her leg. Pt can only stand for 30 min or less but has to sit for a min to relieve pain Prior Treatments and Tests PT helped a lot in past mult times. Treatment Goals Patient/Caregiver Goals Dec pain, improve ability to walk with less pain, be able to get out of chair easier, be able to get up/down from tub & up/down from floor, improve abilityt o put L sock/shoe on PT-OP-C Subjective Start: 04/18/20 13:00 Freq: Status: Active Protocol: Document 05/17/20 08:24 [facility] (Rec: 05/17/20 09:01 [facility] [id number]) OP-PT Subjective Patient Comments Patient Comments Pt has not taken an over the counter back pain pill she typically takes for the past 3 nights Patient Reported Progress Improving PT-OP-E Functional Tests Start: 04/18/20 13:00 Freq: Status: Active Protocol: Document 04/18/20 14:33 [facility] (Rec: 04/18/20 15:18 [facility] [id number]) Functional Tests 30 Second Sit to Stand Test Score 9 Five Times Sit to Stand Test Score 15 sec Functional Gait Assessment Score 17 PT-OP-F Manual Assessment Start: 04/18/20 13:00 Freq: Status: Active Protocol: Document 04/18/20 14:33 [facility] (Rec: 04/18/20 15:18 [facility] [id number]) Manual Assessments Soft Tissue Assessment Soft Tissue Mobility Assessment L>R ES & QL tightness, R glute & pifiromis tightness, R iliacus & quads Joint Mobility Assessment Joint Mobility Assessment R illiac crest higher, equal greater trochanters PT-OP-G Mobility & Gait Start: 04/18/20 13:00 Freq: Status: Active Protocol: Document 04/18/20 14:33 [facility] (Rec: 04/18/20 15:18 [facility] [id number]) OP Gait Assessment Comments Gait Comments Pt has lat leaning with gait w / dec push off B PT-OP-J Posture/Palpation/Skin Start: 04/18/20 13:00 Freq: Status: Active Protocol: Document 04/18/20 14:33 [facility] (Rec: 04/18/20 15:18 [facility] [id number]) Posture Evaluation Andres Postural Classification System Elbow Flexion Test 1 Lumbar Protective Mechanism Left AP 0 Lumbar Protective Mechanism Right AP 0 Lumbar Protective Mechanism Left PA 0 Lumbar Protective Mechanism Right PA 0 Comments Posture Comments scolosis, kyphosis & fwd head, R shear of pelvis, L iliac crest higher, valgus knees PT-OP-K Range of Motion Start: 04/18/20 13:00 Freq: Status: Active Protocol: Document 04/18/20 14:33 [facility] (Rec: 04/18/20 15:18 [facility] [id number]) Lumbar Spine Range of Motion Lumbar Spine Active Degrees Flexion 55 Extension 12 Rotation Left 21 Rotation Right 20 Lateral Flexion Left 10 Lateral Flexion Right 12 Comments pain w/ext & L SB PT-OP-L Special Tests Start: 04/18/20 13:00 Freq: Status: Active Protocol: Document 04/18/20 14:33 [facility] (Rec: 04/18/20 15:18 [facility] [id number]) Special Tests Lumbar Spine Special Tests Tay Test Results L mild iliacus & RF tightness SLR Test Results L 79 deg, R 70 deg Slump Test Results neg B PT-OP-M Strength Start: 04/18/20 13:00 Freq: Status: Active Protocol: Document 04/18/20 14:33 [facility] (Rec: 04/18/20 15:18 [facility] [id number]) Hip Strength Hip Manual Muscle Testing Right Flexion (L2) 3+ Fair+ Extension (S1) 3 Fair Abduction 3+ Fair+ External Rotation 3+ Fair+ Internal Rotation 3 Fair Left Flexion (L2) 3 Fair Extension (S1) 3 Fair Abduction 3 Fair External Rotation 3+ Fair+ Internal Rotation 3+ Fair+ Knee Strength Knee Manual Muscle Testing Right Flexion (S2) 4- Good- Extension (L3) 4 Good Left Flexion (S2) 4 Good Extension (L3) 4- Good- Ankle/Foot Strength Ankle and Foot Manual Muscle Testing Left Dorsiflexion (L4) 5 Normal Plantarflexion (S1) 5 Normal Right Dorsiflexion (L4) 5 Normal Plantarflexion (S1) 5 Normal Comments seated PF tested B PT-OP-Q Treatments Start: 04/18/20 13:00 Freq: Status: Active Protocol: Document 05/17/20 08:24 [facility] (Rec: 05/17/20 09:01 [facility] [id number]) Cardio Equipment Recumbent Elliptical (Biodex) Duration (Minutes) 8 Resistance 8 Seat Position 8 Gym Equipment Shuttle Recovery Unilateral Squats Details Bilaterally Resistance 75# Shuttle Recovery Platform Stable Reps/Time 2x15 Bilateral Squats Details cueing to have feet apart and avoid knees knocking Resistance 112 Shuttle Recovery Platform Stable Reps/Time 2x15 Shuttle Balance red clips Comments fwd & side: WBOS, NBOS & wt shifts in WBOS fwd: staggered stance Therapeutic Exercises Standing Exercises heel raises Side bilateral Reps/Minutes 15x Manual Therapy Treatment Soft Tissue Mobilization QL, paraspinals, ES Body Location L Mobilization Type Rolling,Sustained Pressure Intensity/Depth Moderate Neuro Re-Education Treatment Balance Activities hurdles Details stepping over hurdles Comments fwd over hurdles w/foam on either end and 2 throughout bluex8 PT-OP-T Assessment and Plan Start: 04/18/20 13:00 Freq: Status: Active Protocol: Document 05/17/20 08:24 [facility] (Rec: 05/17/20 09:01 [facility] [id number]) Physical Therapy Assessment Goals sit to stand Short Term Goal (STG) Pt will be able to do 5x sit to manager of international 12 sec to show inc strength and dec risk for falls. STG Duration 05/19/20 Long-Term Goal (LTG) Pt will be able to do 13 sit to stands in 30 sec to show improved strength and dec risk for falls. LTG Duration 06/18/20 strength Short Term Goal (STG) Pt will be indep with HEP STG Duration 05/19/20 Spanish Instructor Goal (LTG) Pt will score 4+/5 for all LE motions to make pt have greater ease with getting around. LTG Duration 06/18/20 FGA Impairment FGA 17/30 Long-Term Goal (LTG) Pt will score 25/30 on FGA to show dec risk for falls. LTG Duration 06/18/20 oswestry Impairment 17/50 Long-Term Goal (LTG) Pt will improve score to 7/50 in order to show improved functional ability LTG Duration 06/18/20 Assessment Summary Assessment Pt cont to improve with inc resistance with exercises. She does need cueing with balance board for trying to use LEs vs UE when balancing. Pt reprots relief with STM Physical Therapy Plan Frequency and Duration Frequency of Treatment 2x/Week Duration of Treatment 2 months Plan of Care Start Date 04/18/20 Plan of Care End Date 06/18/20 Next Visit Focus/Plan Next Note Type Treatment Note Next Visit Plan cont to work on leg strength & balance
--- NOTE | 2020-05-22 17:28 | PT.OTN ---
Current Diagnoses Spondylolisthesis, site unspecified (05/22/20) Difficulty in walking, not elsewhere classified (05/22/20) Abnormal posture (05/22/20) Weakness (05/22/20) Physical Therapy Treatment Note PT-OP-A Visit Information Start: 04/18/20 13:00 Freq: Status: Active Protocol: Document 05/22/20 17:18 MA (Rec: 05/22/20 17:28 MA [id number]) Out-Patient Physical Therapy Visit Information Visit Information Visit Type Treatment Note Visit Start Time 15:16 Visit Stop Time 16:00 Total Visit Minutes 44 Visit Number 8 Number of GLUER AND WEDGER Visits 1 PT-OP-B Current Condition Start: 04/18/20 13:00 Freq: Status: Active Protocol: Document 04/18/20 14:33 [facility] (Rec: 04/18/20 15:18 [facility] [id number]) Current Condition History of Current Condition Onset Date December 26 Current Complaints LB & R>L leg History of Current Condition Pt reports being hospitalized for infected finger and felt like was off balance and weak since then. She was doing great since last bout of therapy until this. Pt reprots RLE sometimes feels like it is going to give out when she stands up. REports cont to do PT exercises. Pt reprots R leg , R hip and back has been bothering her. Since infection she has had inc difficulty getting up out of chair. Pt reports back and R leg bothers her when she walks a 1 mile or 2 miles. She typically has to lean against something to dec back painb ut it doesn't help her leg. Pt can only stand for 30 min or less but has to sit for a min to relieve pain Prior Treatments and Tests PT helped a lot in past mult times. Treatment Goals Patient/Caregiver Goals Dec pain, improve ability to walk with less pain, be able to get out of chair easier, be able to get up/down from tub & up/down from floor, improve abilityt o put L sock/shoe on PT-OP-C Subjective Start: 04/18/20 13:00 Freq: Status: Active Protocol: Document 05/22/20 17:18 MA (Rec: 05/22/20 17:28 MA [id number]) OP-PT Subjective Patient Comments Patient Comments Pt has some soreness in R glute from hauling wood this weekend PT-OP-E Functional Tests Start: 04/18/20 13:00 Freq: Status: Active Protocol: Document 04/18/20 14:33 [facility] (Rec: 04/18/20 15:18 [facility] [id number]) Functional Tests 30 Second Sit to Stand Test Score 9 Five Times Sit to Stand Test Score 15 sec Functional Gait Assessment Score 17 PT-OP-F Manual Assessment Start: 04/18/20 13:00 Freq: Status: Active Protocol: Document 04/18/20 14:33 [facility] (Rec: 04/18/20 15:18 [facility] [id number]) Manual Assessments Soft Tissue Assessment Soft Tissue Mobility Assessment L>R ES & QL tightness, R glute & pifiromis tightness, R iliacus & quads Joint Mobility Assessment Joint Mobility Assessment R illiac crest higher, equal greater trochanters PT-OP-G Mobility & Gait Start: 04/18/20 13:00 Freq: Status: Active Protocol: Document 04/18/20 14:33 [facility] (Rec: 04/18/20 15:18 [facility] [id number]) OP Gait Assessment Comments Gait Comments Pt has lat leaning with gait w / dec push off B PT-OP-J Posture/Palpation/Skin Start: 04/18/20 13:00 Freq: Status: Active Protocol: Document 04/18/20 14:33 [facility] (Rec: 04/18/20 15:18 [facility] [id number]) Posture Evaluation Andres Postural Classification System Elbow Flexion Test 1 Lumbar Protective Mechanism Left AP 0 Lumbar Protective Mechanism Right AP 0 Lumbar Protective Mechanism Left PA 0 Lumbar Protective Mechanism Right PA 0 Comments Posture Comments scolosis, kyphosis & fwd head, R shear of pelvis, L iliac crest higher, valgus knees PT-OP-K Range of Motion Start: 04/18/20 13:00 Freq: Status: Active Protocol: Document 04/18/20 14:33 [facility] (Rec: 04/18/20 15:18 [facility] [id number]) Lumbar Spine Range of Motion Lumbar Spine Active Degrees Flexion 55 Extension 12 Rotation Left 21 Rotation Right 20 Lateral Flexion Left 10 Lateral Flexion Right 12 Comments pain w/ext & L SB PT-OP-L Special Tests Start: 04/18/20 13:00 Freq: Status: Active Protocol: Document 04/18/20 14:33 [facility] (Rec: 04/18/20 15:18 [facility] [id number]) Special Tests Lumbar Spine Special Tests Tay Test Results L mild iliacus & RF tightness SLR Test Results L 79 deg, R 70 deg Slump Test Results neg B PT-OP-M Strength Start: 04/18/20 13:00 Freq: Status: Active Protocol: Document 04/18/20 14:33 [facility] (Rec: 04/18/20 15:18 [facility] [id number]) Hip Strength Hip Manual Muscle Testing Right Flexion (L2) 3+ Fair+ Extension (S1) 3 Fair Abduction 3+ Fair+ External Rotation 3+ Fair+ Internal Rotation 3 Fair Left Flexion (L2) 3 Fair Extension (S1) 3 Fair Abduction 3 Fair External Rotation 3+ Fair+ Internal Rotation 3+ Fair+ Knee Strength Knee Manual Muscle Testing Right Flexion (S2) 4- Good- Extension (L3) 4 Good Left Flexion (S2) 4 Good Extension (L3) 4- Good- Ankle/Foot Strength Ankle and Foot Manual Muscle Testing Left Dorsiflexion (L4) 5 Normal Plantarflexion (S1) 5 Normal Right Dorsiflexion (L4) 5 Normal Plantarflexion (S1) 5 Normal Comments seated PF tested B PT-OP-Q Treatments Start: 04/18/20 13:00 Freq: Status: Active Protocol: Document 05/22/20 17:18 MA (Rec: 05/22/20 17:28 MA [id number]) Cardio Equipment Recumbent Stepper (Sci-Fit) Duration (Minutes) 6 Resistance 3.5 Seat Position 9 Gym Equipment Shuttle Recovery Unilateral Squats Details Bilaterally Resistance 75# Shuttle Recovery Platform Stable Reps/Time 2x15 Bilateral Squats Details cueing to have feet apart and avoid knees knocking Resistance 112 Shuttle Recovery Platform Stable Reps/Time 2x15 Shuttle Balance red clips Comments fwd & side: WBOS, NBOS with EO /EC fwd: staggered stance Therapeutic Exercises Standing Exercises heel raises Side bilateral Reps/Minutes 15x Comments working on not holding onto anything and still lowering with control Squat at railing Equipment Used rail prn only Reps/Minutes 2x10 Comments one set on floor, one of airex Manual Therapy Treatment Soft Tissue Mobilization glutes Body Location R Mobilization Type Sustained Pressure,Trigger Point Release Intensity/Depth Moderate Body Position Prone Neuro Re-Education Treatment Balance Activities Single Limb Standing Surface floor, airex Reps/Duration 2x30 sec jena Comments Trying to let go of ballet bar and stay balanced. PT-OP-T Assessment and Plan Start: 04/18/20 13:00 Freq: Status: Active Protocol: Document 05/22/20 17:18 MA (Rec: 05/22/20 17:28 MA [id number]) Physical Therapy Assessment Goals sit to stand Short Term Goal (STG) Pt will be able to do 5x sit to peoplesoft administrator 12 sec to show inc strength and dec risk for falls. STG Duration 05/19/20 Scrap Dealer Goal (LTG) Pt will be able to do 13 sit to stands in 30 sec to show improved strength and dec risk for falls. LTG Duration 06/18/20 strength Short Term Goal (STG) Pt will be indep with HEP STG Duration 05/19/20 Retirement Goal (LTG) Pt will score 4+/5 for all LE motions to make pt have greater ease with getting around. LTG Duration 06/18/20 FGA Impairment FGA 17/30 Retirement Goal (LTG) Pt will score 25/30 on FGA to show dec risk for falls. LTG Duration 06/18/20 oswestry Impairment 17/50 Scrap Dealer Goal (LTG) Pt will improve score to 7/50 in order to show improved functional ability LTG Duration 06/18/20 Assessment Summary Assessment Pt needs cues with shuttle recovery to avoid knocking knees together. Decreased balance during modified tandum stance on shuttle balance with greater LOB when L leg is infront. Physical Therapy Plan Frequency and Duration Frequency of Treatment 2x/Week Duration of Treatment 2 months Plan of Care Start Date 04/18/20 Plan of Care End Date 06/18/20 Next Visit Focus/Plan Next Note Type Treatment Note Next Visit Plan Continue working balance, trying tandem stance on uneven surface like airex. Increase leg strength and perform manual therapy as needed
--- NOTE | 2020-05-29 10:40 | PT.OTN ---
Current Diagnoses Spondylolisthesis, site unspecified (05/29/20) Difficulty in walking, not elsewhere classified (05/29/20) Abnormal posture (05/29/20) Weakness (05/29/20) Physical Therapy Treatment Note PT-OP-A Visit Information Start: 04/18/20 13:00 Freq: Status: Active Protocol: Document 05/29/20 09:49 [facility] (Rec: 05/29/20 10:40 [facility] [id number]) Out-Patient Physical Therapy Visit Information Visit Information Visit Type Treatment Note Visit Note 03/09 Visit Start Time 09:46 Visit Stop Time 10:27 Total Visit Minutes 41 Visit Number 9 Number of STONE CUTTER Visits 0 PT-OP-B Current Condition Start: 04/18/20 13:00 Freq: Status: Active Protocol: Document 04/18/20 14:33 [facility] (Rec: 04/18/20 15:18 [facility] [id number]) Current Condition History of Current Condition Onset Date December 26 Current Complaints LB & R>L leg History of Current Condition Pt reports being hospitalized for infected finger and felt like was off balance and weak since then. She was doing great since last bout of therapy until this. Pt reprots RLE sometimes feels like it is going to give out when she stands up. REports cont to do PT exercises. Pt reprots R leg , R hip and back has been bothering her. Since infection she has had inc difficulty getting up out of chair. Pt reports back and R leg bothers her when she walks a 1 mile or 2 miles. She typically has to lean against something to dec back painb ut it doesn't help her leg. Pt can only stand for 30 min or less but has to sit for a min to relieve pain Prior Treatments and Tests PT helped a lot in past mult times. Treatment Goals Patient/Caregiver Goals Dec pain, improve ability to walk with less pain, be able to get out of chair easier, be able to get up/down from tub & up/down from floor, improve abilityt o put L sock/shoe on PT-OP-C Subjective Start: 04/18/20 13:00 Freq: Status: Active Protocol: Document 05/29/20 09:49 [facility] (Rec: 05/29/20 10:40 [facility] [id number]) OP-PT Subjective Patient Comments Patient Comments Pt reports her buttocks was sore after last treatment. She thinks it was from too much on leg press. She has had trouble sleeping PT-OP-E Functional Tests Start: 04/18/20 13:00 Freq: Status: Active Protocol: Document 04/18/20 14:33 [facility] (Rec: 04/18/20 15:18 [facility] [id number]) Functional Tests 30 Second Sit to Stand Test Score 9 Five Times Sit to Stand Test Score 15 sec Functional Gait Assessment Score 17 PT-OP-F Manual Assessment Start: 04/18/20 13:00 Freq: Status: Active Protocol: Document 04/18/20 14:33 [facility] (Rec: 04/18/20 15:18 [facility] [id number]) Manual Assessments Soft Tissue Assessment Soft Tissue Mobility Assessment L>R ES & QL tightness, R glute & pifiromis tightness, R iliacus & quads Joint Mobility Assessment Joint Mobility Assessment R illiac crest higher, equal greater trochanters PT-OP-G Mobility & Gait Start: 04/18/20 13:00 Freq: Status: Active Protocol: Document 04/18/20 14:33 [facility] (Rec: 04/18/20 15:18 [facility] [id number]) OP Gait Assessment Comments Gait Comments Pt has lat leaning with gait w / dec push off B PT-OP-J Posture/Palpation/Skin Start: 04/18/20 13:00 Freq: Status: Active Protocol: Document 04/18/20 14:33 [facility] (Rec: 04/18/20 15:18 [facility] [id number]) Posture Evaluation Andres Postural Classification System Elbow Flexion Test 1 Lumbar Protective Mechanism Left AP 0 Lumbar Protective Mechanism Right AP 0 Lumbar Protective Mechanism Left PA 0 Lumbar Protective Mechanism Right PA 0 Comments Posture Comments scolosis, kyphosis & fwd head, R shear of pelvis, L iliac crest higher, valgus knees PT-OP-K Range of Motion Start: 04/18/20 13:00 Freq: Status: Active Protocol: Document 04/18/20 14:33 [facility] (Rec: 04/18/20 15:18 [facility] [id number]) Lumbar Spine Range of Motion Lumbar Spine Active Degrees Flexion 55 Extension 12 Rotation Left 21 Rotation Right 20 Lateral Flexion Left 10 Lateral Flexion Right 12 Comments pain w/ext & L SB PT-OP-L Special Tests Start: 04/18/20 13:00 Freq: Status: Active Protocol: Document 04/18/20 14:33 [facility] (Rec: 04/18/20 15:18 [facility] [id number]) Special Tests Lumbar Spine Special Tests Tay Test Results L mild iliacus & RF tightness SLR Test Results L 79 deg, R 70 deg Slump Test Results neg B PT-OP-M Strength Start: 04/18/20 13:00 Freq: Status: Active Protocol: Document 04/18/20 14:33 [facility] (Rec: 04/18/20 15:18 [facility] [id number]) Hip Strength Hip Manual Muscle Testing Right Flexion (L2) 3+ Fair+ Extension (S1) 3 Fair Abduction 3+ Fair+ External Rotation 3+ Fair+ Internal Rotation 3 Fair Left Flexion (L2) 3 Fair Extension (S1) 3 Fair Abduction 3 Fair External Rotation 3+ Fair+ Internal Rotation 3+ Fair+ Knee Strength Knee Manual Muscle Testing Right Flexion (S2) 4- Good- Extension (L3) 4 Good Left Flexion (S2) 4 Good Extension (L3) 4- Good- Ankle/Foot Strength Ankle and Foot Manual Muscle Testing Left Dorsiflexion (L4) 5 Normal Plantarflexion (S1) 5 Normal Right Dorsiflexion (L4) 5 Normal Plantarflexion (S1) 5 Normal Comments seated PF tested B PT-OP-Q Treatments Start: 04/18/20 13:00 Freq: Status: Active Protocol: Document 05/29/20 09:49 [facility] (Rec: 05/29/20 10:40 [facility] [id number]) Gym Equipment Shuttle Balance red clips Comments fwd & side: WBOS, NBOS with EO /EC fwd: staggered stance Neuro Re-Education Treatment Balance Activities balance on stable surface Details NBOS w/EC Tandem Details stance trials B and walking Single Limb Standing Details SLS trials b PT-OP-T Assessment and Plan Start: 04/18/20 13:00 Freq: Status: Active Protocol: Document 05/29/20 09:49 [facility] (Rec: 05/29/20 10:40 [facility] [id number]) Physical Therapy Assessment Goals sit to stand Short Term Goal (STG) Pt will be able to do 5x sit to telecommunications line mechanic 12 sec to show inc strength and dec risk for falls. STG Duration 05/19/20 [facility] Goal (LTG) Pt will be able to do 13 sit to stands in 30 sec to show improved strength and dec risk for falls. LTG Duration 06/18/20 strength Short Term Goal (STG) Pt will be indep with HEP STG Duration 05/19/20 Auto Suspension And Steering Mechanic Goal (LTG) Pt will score 4+/5 for all LE motions to make pt have greater ease with getting around. LTG Duration 06/18/20 FGA Impairment FGA 17/30 Auto Suspension And Steering Mechanic Goal (LTG) Pt will score 25/30 on FGA to show dec risk for falls. LTG Duration 06/18/20 oswestry Impairment 17/50 Auto Suspension And Steering Mechanic Goal (LTG) Pt will improve score to 7/50 in order to show improved functional ability LTG Duration 06/18/20 Assessment Summary Assessment Pt improved with balance and control onboard today. She was able to improve in SLS with ability to hold for abut 4 sec ea leg. Improved pain in buttocks after manual treatment. Physical Therapy Plan Frequency and Duration Frequency of Treatment 2x/Week Duration of Treatment 2 months Plan of Care Start Date 04/18/20 Plan of Care End Date 06/18/20 Next Visit Focus/Plan Next Note Type Progress Note Next Visit Plan progress note for 10th visit & work on cont balance and LE stability
--- NOTE | 2020-05-31 10:34 | PT.OTN ---
Current Diagnoses Spondylolisthesis, site unspecified (05/31/20) Difficulty in walking, not elsewhere classified (05/31/20) Abnormal posture (05/31/20) Weakness (05/31/20) Physical Therapy Treatment Note PT-OP-A Visit Information Start: 04/18/20 13:00 Freq: Status: Active Protocol: Document 05/31/20 09:51 [facility] (Rec: 05/31/20 10:33 [facility] [id number]) Out-Patient Physical Therapy Visit Information Visit Information Visit Type Progress Note Visit Note 07/09 Visit Start Time 09:47 Visit Stop Time 10:28 Total Visit Minutes 41 Visit Number 10 Number of COMPUTER CUSTOMER SUPPORT SPECIALIST Visits 0 PT-OP-B Current Condition Start: 04/18/20 13:00 Freq: Status: Active Protocol: Document 04/18/20 14:33 [facility] (Rec: 04/18/20 15:18 [facility] [id number]) Current Condition History of Current Condition Onset Date December 26 Current Complaints LB & R>L leg History of Current Condition Pt reports being hospitalized for infected finger and felt like was off balance and weak since then. She was doing great since last bout of therapy until this. Pt reprots RLE sometimes feels like it is going to give out when she stands up. REports cont to do PT exercises. Pt reprots R leg , R hip and back has been bothering her. Since infection she has had inc difficulty getting up out of chair. Pt reports back and R leg bothers her when she walks a 1 mile or 2 miles. She typically has to lean against something to dec back painb ut it doesn't help her leg. Pt can only stand for 30 min or less but has to sit for a min to relieve pain Prior Treatments and Tests PT helped a lot in past mult times. Treatment Goals Patient/Caregiver Goals Dec pain, improve ability to walk with less pain, be able to get out of chair easier, be able to get up/down from tub & up/down from floor, improve abilityt o put L sock/shoe on PT-OP-C Subjective Start: 04/18/20 13:00 Freq: Status: Active Protocol: Document 05/31/20 09:51 [facility] (Rec: 05/31/20 10:33 [facility] [id number]) OP-PT Subjective Patient Comments Patient Comments Pt reports feeling much better after last session Patient Reported Progress Improving Patient Questionnaires Oswestry Low Back Index Oswestry Score 50 PT-OP-E Functional Tests Start: 04/18/20 13:00 Freq: Status: Active Protocol: Document 05/31/20 09:51 [facility] (Rec: 05/31/20 10:33 [facility] [id number]) Functional Tests 30 Second Sit to Stand Test Score 11 Five Times Sit to Stand Test Score 13 sec Functional Gait Assessment Score 24 PT-OP-F Manual Assessment Start: 04/18/20 13:00 Freq: Status: Active Protocol: Document 04/18/20 14:33 [facility] (Rec: 04/18/20 15:18 [facility] [id number]) Manual Assessments Soft Tissue Assessment Soft Tissue Mobility Assessment L>R ES & QL tightness, R glute & pifiromis tightness, R iliacus & quads Joint Mobility Assessment Joint Mobility Assessment R illiac crest higher, equal greater trochanters PT-OP-G Mobility & Gait Start: 04/18/20 13:00 Freq: Status: Active Protocol: Document 04/18/20 14:33 [facility] (Rec: 04/18/20 15:18 [facility] [id number]) OP Gait Assessment Comments Gait Comments Pt has lat leaning with gait w / dec push off B PT-OP-J Posture/Palpation/Skin Start: 04/18/20 13:00 Freq: Status: Active Protocol: Document 04/18/20 14:33 [facility] (Rec: 04/18/20 15:18 [facility] [id number]) Posture Evaluation Andres Postural Classification System Elbow Flexion Test 1 Lumbar Protective Mechanism Left AP 0 Lumbar Protective Mechanism Right AP 0 Lumbar Protective Mechanism Left PA 0 Lumbar Protective Mechanism Right PA 0 Comments Posture Comments scolosis, kyphosis & fwd head, R shear of pelvis, L iliac crest higher, valgus knees PT-OP-K Range of Motion Start: 04/18/20 13:00 Freq: Status: Active Protocol: Document 04/18/20 14:33 [facility] (Rec: 04/18/20 15:18 [facility] [id number]) Lumbar Spine Range of Motion Lumbar Spine Active Degrees Flexion 55 Extension 12 Rotation Left 21 Rotation Right 20 Lateral Flexion Left 10 Lateral Flexion Right 12 Comments pain w/ext & L SB PT-OP-L Special Tests Start: 04/18/20 13:00 Freq: Status: Active Protocol: Document 04/18/20 14:33 [facility] (Rec: 04/18/20 15:18 [facility] [id number]) Special Tests Lumbar Spine Special Tests Tay Test Results L mild iliacus & RF tightness SLR Test Results L 79 deg, R 70 deg Slump Test Results neg B PT-OP-M Strength Start: 04/18/20 13:00 Freq: Status: Active Protocol: Document 05/31/20 09:51 [facility] (Rec: 05/31/20 10:33 [facility] [id number]) Hip Strength Hip Manual Muscle Testing Right Flexion (L2) 4- Good- Extension (S1) 3+ Fair+ Abduction 3+ Fair+ External Rotation 4- Good- Internal Rotation 4 Good Left Flexion (L2) 4- Good- Extension (S1) 3+ Fair+ Abduction 3+ Fair+ External Rotation 4- Good- Internal Rotation 4 Good Knee Strength Knee Manual Muscle Testing Right Flexion (S2) 4+ Good+ Extension (L3) 5 Normal Left Flexion (S2) 4+ Good+ Extension (L3) 5 Normal Ankle/Foot Strength Ankle and Foot Manual Muscle Testing Left Dorsiflexion (L4) 5 Normal Plantarflexion (S1) 5 Normal Right Dorsiflexion (L4) 5 Normal Plantarflexion (S1) 5 Normal Comments seated PF tested B PT-OP-Q Treatments Start: 04/18/20 13:00 Freq: Status: Active Protocol: Document 05/31/20 09:51 [facility] (Rec: 05/31/20 10:33 [facility] [id number]) Cardio Equipment Recumbent Elliptical (Biodex) Duration (Minutes) 6 Resistance 8 Seat Position 8 Gym Equipment Shuttle Recovery Unilateral Squats Details Bilaterally Resistance 75# Shuttle Recovery Platform Stable Reps/Time 15 Bilateral Squats Details cueing to have feet apart and avoid knees knocking Resistance 112 Shuttle Recovery Platform Stable Reps/Time 20 PT-OP-T Assessment and Plan Start: 04/18/20 13:00 Freq: Status: Active Protocol: Document 05/31/20 09:51 [facility] (Rec: 05/31/20 10:33 [facility] [id number]) Physical Therapy Assessment Goals up/down from ground Fpc Goal (LTG) Pt will be able to get up/dwon from the ground comfortably LTG Duration 07/01/20 sit to stand Short Term Goal (STG) Pt will be able to do 5x sit to supervisor joiners 12 sec to show inc strength and dec risk for falls. 05/31-improved to 13 sec STG Duration 07/01/20 Clinical Trial Assistant Goal (LTG) Pt will be able to do 13 sit to stands in 30 sec to show improved strength and dec risk for falls. 05/31-improved to 11 LTG Duration 08/01/20 strength Short Term Goal (STG) Pt will be indep with HEP STG Duration achieved Clinical Trial Assistant Goal (LTG) Pt will score 4+/5 for all LE motions to make pt have greater ease with getting around. 05/31-improving LTG Duration 08/01/20 FGA Impairment FGA Clinical Trial Assistant Goal (LTG) Pt will score 25/30 on FGA to show dec risk for falls. 05/31- LTG Duration 08/01/20 oswestry Impairment 17/50 Fpc Goal (LTG) Pt will improve score to 7/50 in order to show improved functional ability 05/31-imporved to 11/50 LTG Duration 06/18/20 Assessment Summary Assessment Pt is making excellent progress with her balance, strength and functional ability with good progress towards goals. She is showing dec pain in hip and LB with PT also. She would bneefit from cont PT to cont to work on functional mobility and improved balance Physical Therapy Plan Frequency and Duration Frequency of Treatment 2x/Week Duration of Treatment 2 months Plan of Care Start Date 05/31/20 Plan of Care End Date 08/01/20 Therapeutic Interventions Therapeutic Interventions Aquatic Therapy,Balance Training,Gait Training,Home Exercise Program,Joint Mobilizations,Manual Therapy, Neuromuscular Re-education, Patient/Caregiver Education, Self-Care/Home Management,Soft Tissue Mobilization,Taping, Therapeutic Activities, Therapeutic Exercises Modalities Cold Pack/Ice Massage,Electric Stimulation,Hot Packs Next Visit Focus/Plan Next Note Type Treatment Note Next Visit Plan Continue working balance, trying tandem stance on uneven surface like airex. Increase leg strength and perform manual therapy as needed
--- NOTE | 2020-05-31 10:34 | PT.OPPOC ---
Physical, Occupational & Speech Therapy At [facility] Current Diagnoses Spondylolisthesis, site unspecified (05/31/20) Difficulty in walking, not elsewhere classified (05/31/20) Abnormal posture (05/31/20) Weakness (05/31/20) Visit Care Team Role Provider Type Jonathan Johnston DO Attending Provider Physician Primary Care Provider Referring Provider Specialty: [facility] Address: [address] [place] [address], [facility] Email: [email or web address] Plan Of Care PT-OP-T Assessment and Plan Start: 04/18/20 13:00 Freq: Status: Active Protocol: Document 05/31/20 09:51 [facility] (Rec: 05/31/20 10:33 [facility] [id number]) Physical Therapy Assessment Goals up/down from ground Long-Term Goal (LTG) Pt will be able to get up/dwon from the ground comfortably LTG Duration 07/01/20 sit to stand Short Term Goal (STG) Pt will be able to do 5x sit to linoleum floor layer 12 sec to show inc strength and dec risk for falls. 05/31-improved to 13 sec STG Duration 07/01/20 Cab Station Attendant Goal (LTG) Pt will be able to do 13 sit to stands in 30 sec to show improved strength and dec risk for falls. 05/31-improved to 11 LTG Duration 08/01/20 strength Short Term Goal (STG) Pt will be indep with HEP STG Duration achieved Long-Term Goal (LTG) Pt will score 4+/5 for all LE motions to make pt have greater ease with getting around. 2-improving LTG Duration 08/01/20 FGA Impairment FGA Long-Term Goal (LTG) Pt will score 25/30 on FGA to show dec risk for falls. 05/31- LTG Duration 08/01/20 oswestry Impairment Long-Term Goal (LTG) Pt will improve score to 7/50 in order to show improved functional ability 05/31-imporved to LTG Duration 06/18/20 Assessment Summary Assessment Pt is making excellent progress with her balance, strength and functional ability with good progress towards goals. She is showing dec pain in hip and LB with PT also. She would bneefit from cont PT to cont to work on functional mobility and improved balance Physical Therapy Plan Frequency and Duration Frequency of Treatment 2x/Week Duration of Treatment 2 months Plan of Care Start Date 05/31/20 Plan of Care End Date 08/01/20 Therapeutic Interventions Therapeutic Interventions Aquatic Therapy,Balance Training,Gait Training,Home Exercise Program,Joint Mobilizations,Manual Therapy, Neuromuscular Re-education, Patient/Caregiver Education, Self-Care/Home Management,Soft Tissue Mobilization,Taping, Therapeutic Activities, Therapeutic Exercises Modalities Cold Pack/Ice Massage,Electric Stimulation,Hot Packs Next Visit Focus/Plan Next Note Type Treatment Note Next Visit Plan Continue working balance, trying tandem stance on uneven surface like airex. Increase leg strength and perform manual therapy as needed Plan of Care Dates Plan of Care Start Date 05/31/20 Plan of Care End Date 08/01/20 Electronically Signed by: Sylvia Christopher, PT 05/31/20 103 Please Sign and Return: I have reviewed this Plan of Care and certify that the skilled therapy services above are required to meet the patient?s needs. Physician Signature Date Printed Name and Credentials Clinical Instructor Signature Printed Name and Credentials
--- NOTE | 2020-06-05 11:06 | PT.OTN ---
Current Diagnoses Spondylolisthesis, site unspecified (06/05/20) Difficulty in walking, not elsewhere classified (06/05/20) Abnormal posture (06/05/20) Weakness (06/05/20) Physical Therapy Treatment Note PT-OP-A Visit Information Start: 04/18/20 13:00 Freq: Status: Active Protocol: Document 06/05/20 09:56 [facility] (Rec: 06/05/20 11:06 [facility] [id number]) Out-Patient Physical Therapy Visit Information Visit Information Visit Type Treatment Note Visit Note 08/09 Visit Start Time 09:52 Visit Stop Time 10:30 Total Visit Minutes 38 Visit Number 11 Number of BEAM BUILDER Visits 0 PT-OP-B Current Condition Start: 04/18/20 13:00 Freq: Status: Active Protocol: Document 04/18/20 14:33 [facility] (Rec: 04/18/20 15:18 [facility] [id number]) Current Condition History of Current Condition Onset Date December 26 Current Complaints LB & R>L leg History of Current Condition Pt reports being hospitalized for infected finger and felt like was off balance and weak since then. She was doing great since last bout of therapy until this. Pt reprots RLE sometimes feels like it is going to give out when she stands up. REports cont to do PT exercises. Pt reprots R leg , R hip and back has been bothering her. Since infection she has had inc difficulty getting up out of chair. Pt reports back and R leg bothers her when she walks a 1 mile or 2 miles. She typically has to lean against something to dec back painb ut it doesn't help her leg. Pt can only stand for 30 min or less but has to sit for a min to relieve pain Prior Treatments and Tests PT helped a lot in past mult times. Treatment Goals Patient/Caregiver Goals Dec pain, improve ability to walk with less pain, be able to get out of chair easier, be able to get up/down from tub & up/down from floor, improve abilityt o put L sock/shoe on PT-OP-C Subjective Start: 04/18/20 13:00 Freq: Status: Active Protocol: Document 06/05/20 09:56 [facility] (Rec: 06/05/20 11:06 [facility] [id number]) OP-PT Subjective Patient Comments Patient Comments Pt reports no pain today. Patient Reported Progress Improving PT-OP-E Functional Tests Start: 04/18/20 13:00 Freq: Status: Active Protocol: Document 05/31/20 09:51 [facility] (Rec: 05/31/20 10:33 [facility] [id number]) Functional Tests 30 Second Sit to Stand Test Score 11 Five Times Sit to Stand Test Score 13 sec Functional Gait Assessment Score 24 PT-OP-F Manual Assessment Start: 04/18/20 13:00 Freq: Status: Active Protocol: Document 04/18/20 14:33 [facility] (Rec: 04/18/20 15:18 [facility] [id number]) Manual Assessments Soft Tissue Assessment Soft Tissue Mobility Assessment L>R ES & QL tightness, R glute & pifiromis tightness, R iliacus & quads Joint Mobility Assessment Joint Mobility Assessment R illiac crest higher, equal greater trochanters PT-OP-G Mobility & Gait Start: 04/18/20 13:00 Freq: Status: Active Protocol: Document 04/18/20 14:33 [facility] (Rec: 04/18/20 15:18 [facility] [id number]) OP Gait Assessment Comments Gait Comments Pt has lat leaning with gait w / dec push off B PT-OP-J Posture/Palpation/Skin Start: 04/18/20 13:00 Freq: Status: Active Protocol: Document 04/18/20 14:33 [facility] (Rec: 04/18/20 15:18 [facility] [id number]) Posture Evaluation Andres Postural Classification System Elbow Flexion Test 1 Lumbar Protective Mechanism Left AP 0 Lumbar Protective Mechanism Right AP 0 Lumbar Protective Mechanism Left PA 0 Lumbar Protective Mechanism Right PA 0 Comments Posture Comments scolosis, kyphosis & fwd head, R shear of pelvis, L iliac crest higher, valgus knees PT-OP-K Range of Motion Start: 04/18/20 13:00 Freq: Status: Active Protocol: Document 04/18/20 14:33 [facility] (Rec: 04/18/20 15:18 [facility] [id number]) Lumbar Spine Range of Motion Lumbar Spine Active Degrees Flexion 55 Extension 12 Rotation Left 21 Rotation Right 20 Lateral Flexion Left 10 Lateral Flexion Right 12 Comments pain w/ext & L SB PT-OP-L Special Tests Start: 04/18/20 13:00 Freq: Status: Active Protocol: Document 04/18/20 14:33 [facility] (Rec: 04/18/20 15:18 [facility] [id number]) Special Tests Lumbar Spine Special Tests Tay Test Results L mild iliacus & RF tightness SLR Test Results L 79 deg, R 70 deg Slump Test Results neg B PT-OP-M Strength Start: 04/18/20 13:00 Freq: Status: Active Protocol: Document 05/31/20 09:51 [facility] (Rec: 05/31/20 10:33 [facility] [id number]) Hip Strength Hip Manual Muscle Testing Right Flexion (L2) 4- Good- Extension (S1) 3+ Fair+ Abduction 3+ Fair+ External Rotation 4- Good- Internal Rotation 4 Good Left Flexion (L2) 4- Good- Extension (S1) 3+ Fair+ Abduction 3+ Fair+ External Rotation 4- Good- Internal Rotation 4 Good Knee Strength Knee Manual Muscle Testing Right Flexion (S2) 4+ Good+ Extension (L3) 5 Normal Left Flexion (S2) 4+ Good+ Extension (L3) 5 Normal Ankle/Foot Strength Ankle and Foot Manual Muscle Testing Left Dorsiflexion (L4) 5 Normal Plantarflexion (S1) 5 Normal Right Dorsiflexion (L4) 5 Normal Plantarflexion (S1) 5 Normal Comments seated PF tested B PT-OP-Q Treatments Start: 04/18/20 13:00 Freq: Status: Active Protocol: Document 06/05/20 09:56 [facility] (Rec: 06/05/20 11:06 [facility] [id number]) Cardio Equipment Recumbent Elliptical (Biodex) Duration (Minutes) 6 Resistance 8 Seat Position 8 Gym Equipment Shuttle Recovery Unilateral Squats Details Bilaterally Resistance 75# Shuttle Recovery Platform Stable Reps/Time 15 Bilateral Squats Details cueing to have feet apart and avoid knees knocking Resistance 112, 125 Shuttle Recovery Platform Stable Reps/Time 2x15 (1 set at ea wt) Shuttle Balance red clips Comments fwd & side: WBOS, NBOS fwd: staggered stance Neuro Re-Education Treatment Balance Activities bosu Details standing balance marching steps with hold in SLS Details toe taps to 16 in step no UE support Equipment 5lb wt Reps/Duration 15 B Tandem Comments 1. stance B 2. tandem walking on line w/1 rail 20ftx2 3. fwd walking on line 20ftx2 hurdles Equipment 6 hurdles Reps/Duration 5lbs onto each LE Comments fwd x8 side x3 B PT-OP-T Assessment and Plan Start: 04/18/20 13:00 Freq: Status: Active Protocol: Document 06/05/20 09:56 [facility] (Rec: 06/05/20 11:06 [facility] [id number]) Physical Therapy Assessment Goals up/down from ground Prison Goal (LTG) Pt will be able to get up/dwon from the ground comfortably LTG Duration 07/01/20 sit to stand Short Term Goal (STG) Pt will be able to do 5x sit to policy intern 12 sec to show inc strength and dec risk for falls. 05/31-improved to 13 sec STG Duration 07/01/20 Prison Goal (LTG) Pt will be able to do 13 sit to stands in 30 sec to show improved strength and dec risk for falls. 05/31-improved to 11 LTG Duration 08/01/20 strength Short Term Goal (STG) Pt will be indep with HEP STG Duration achieved Tree Trimming Line Technician Goal (LTG) Pt will score 4+/5 for all LE motions to make pt have greater ease with getting around. 2-improving LTG Duration 08/01/20 FGA Impairment FGA 17/30 Tree Trimming Line Technician Goal (LTG) Pt will score 25/30 on FGA to show dec risk for falls. 05/31-24 LTG Duration 08/01/20 oswestry Impairment 17/50 Tree Trimming Line Technician Goal (LTG) Pt will improve score to 7/50 in order to show improved functional ability 05/31-imporved to 11/50 LTG Duration 06/18/20 Assessment Summary Assessment Pt did well with balacne exercises, with inc challenge w/ 5# wts onto LEs. She did show improved ability with tandem walking today. Physical Therapy Plan Frequency and Duration Frequency of Treatment 2x/Week Duration of Treatment 2 months Plan of Care Start Date 05/31/20 Plan of Care End Date 08/01/20 Next Visit Focus/Plan Next Note Type Treatment Note Next Visit Plan Continue working balance, trying tandem stance on uneven surface like airex. Increase leg strength
--- NOTE | 2020-06-07 10:16 | PT.OTN ---
Current Diagnoses Spondylolisthesis, site unspecified (06/07/20) Difficulty in walking, not elsewhere classified (06/07/20) Abnormal posture (06/07/20) Weakness (06/07/20) Physical Therapy Treatment Note PT-OP-A Visit Information Start: 04/18/20 13:00 Freq: Status: Active Protocol: Document 06/07/20 09:29 [facility] (Rec: 06/07/20 10:16 [facility] [id number]) Out-Patient Physical Therapy Visit Information Visit Information Visit Type Treatment Note Visit Start Time 09:25 Visit Stop Time 10:10 Total Visit Minutes 45 Visit Number 12 Number of GRIND OPERATOR Visits 1 PT-OP-B Current Condition Start: 04/18/20 13:00 Freq: Status: Active Protocol: Document 04/18/20 14:33 [facility] (Rec: 04/18/20 15:18 [facility] [id number]) Current Condition History of Current Condition Onset Date December 26 Current Complaints LB & R>L leg History of Current Condition Pt reports being hospitalized for infected finger and felt like was off balance and weak since then. She was doing great since last bout of therapy until this. Pt reprots RLE sometimes feels like it is going to give out when she stands up. REports cont to do PT exercises. Pt reprots R leg , R hip and back has been bothering her. Since infection she has had inc difficulty getting up out of chair. Pt reports back and R leg bothers her when she walks a 1 mile or 2 miles. She typically has to lean against something to dec back painb ut it doesn't help her leg. Pt can only stand for 30 min or less but has to sit for a min to relieve pain Prior Treatments and Tests PT helped a lot in past mult times. Treatment Goals Patient/Caregiver Goals Dec pain, improve ability to walk with less pain, be able to get out of chair easier, be able to get up/down from tub & up/down from floor, improve abilityt o put L sock/shoe on PT-OP-C Subjective Start: 04/18/20 13:00 Freq: Status: Active Protocol: Document 06/07/20 09:29 [facility] (Rec: 06/07/20 10:16 [facility] [id number]) OP-PT Subjective Patient Comments Patient Comments Pt has no pain. Arrives without hearing aid stating she lost it after her last appointment and was wondering if anyone found it. PT-OP-E Functional Tests Start: 04/18/20 13:00 Freq: Status: Active Protocol: Document 05/31/20 09:51 [facility] (Rec: 05/31/20 10:33 [facility] [id number]) Functional Tests 30 Second Sit to Stand Test Score 11 Five Times Sit to Stand Test Score 13 sec Functional Gait Assessment Score 24 PT-OP-F Manual Assessment Start: 04/18/20 13:00 Freq: Status: Active Protocol: Document 04/18/20 14:33 [facility] (Rec: 04/18/20 15:18 [facility] [id number]) Manual Assessments Soft Tissue Assessment Soft Tissue Mobility Assessment L>R ES & QL tightness, R glute & pifiromis tightness, R iliacus & quads Joint Mobility Assessment Joint Mobility Assessment R illiac crest higher, equal greater trochanters PT-OP-G Mobility & Gait Start: 04/18/20 13:00 Freq: Status: Active Protocol: Document 04/18/20 14:33 [facility] (Rec: 04/18/20 15:18 [facility] [id number]) OP Gait Assessment Comments Gait Comments Pt has lat leaning with gait w / dec push off B PT-OP-J Posture/Palpation/Skin Start: 04/18/20 13:00 Freq: Status: Active Protocol: Document 04/18/20 14:33 [facility] (Rec: 04/18/20 15:18 [facility] [id number]) Posture Evaluation Andres Postural Classification System Elbow Flexion Test 1 Lumbar Protective Mechanism Left AP 0 Lumbar Protective Mechanism Right AP 0 Lumbar Protective Mechanism Left PA 0 Lumbar Protective Mechanism Right PA 0 Comments Posture Comments scolosis, kyphosis & fwd head, R shear of pelvis, L iliac crest higher, valgus knees PT-OP-K Range of Motion Start: 04/18/20 13:00 Freq: Status: Active Protocol: Document 04/18/20 14:33 [facility] (Rec: 04/18/20 15:18 [facility] [id number]) Lumbar Spine Range of Motion Lumbar Spine Active Degrees Flexion 55 Extension 12 Rotation Left 21 Rotation Right 20 Lateral Flexion Left 10 Lateral Flexion Right 12 Comments pain w/ext & L SB PT-OP-L Special Tests Start: 04/18/20 13:00 Freq: Status: Active Protocol: Document 04/18/20 14:33 [facility] (Rec: 04/18/20 15:18 [facility] [id number]) Special Tests Lumbar Spine Special Tests Tay Test Results L mild iliacus & RF tightness SLR Test Results L 79 deg, R 70 deg Slump Test Results neg B PT-OP-M Strength Start: 04/18/20 13:00 Freq: Status: Active Protocol: Document 05/31/20 09:51 [facility] (Rec: 05/31/20 10:33 [facility] [id number]) Hip Strength Hip Manual Muscle Testing Right Flexion (L2) 4- Good- Extension (S1) 3+ Fair+ Abduction 3+ Fair+ External Rotation 4- Good- Internal Rotation 4 Good Left Flexion (L2) 4- Good- Extension (S1) 3+ Fair+ Abduction 3+ Fair+ External Rotation 4- Good- Internal Rotation 4 Good Knee Strength Knee Manual Muscle Testing Right Flexion (S2) 4+ Good+ Extension (L3) 5 Normal Left Flexion (S2) 4+ Good+ Extension (L3) 5 Normal Ankle/Foot Strength Ankle and Foot Manual Muscle Testing Left Dorsiflexion (L4) 5 Normal Plantarflexion (S1) 5 Normal Right Dorsiflexion (L4) 5 Normal Plantarflexion (S1) 5 Normal Comments seated PF tested B PT-OP-Q Treatments Start: 04/18/20 13:00 Freq: Status: Active Protocol: Document 06/07/20 09:29 [facility] (Rec: 06/07/20 10:16 [facility] [id number]) Cardio Equipment Recumbent Elliptical (BiodTelarix) Duration (Minutes) 6 Resistance 8 Seat Position 8 Other 476 Gym Equipment Shuttle Balance red clips Comments fwd & side: WBOS, NBOS fwd: staggered stance Therapeutic Exercises Supine Exercises Piriformis Stretch Side bilateral Reps/Minutes x60 sec HS Supine Exercise Name HS stretch Side bilateral Equipment Used belt Standing Exercises Marches Side bilateral Resistance #5 Reps/Minutes x20 backward walk Standing Exercise Name Tandem walking Side bilateral forward walk Standing Exercise Name tandem walking Side bilateral Reps/Minutes 4x parallel bars hip ext Side bilateral Equipment Used 5# Reps/Minutes 2x10 Manual Therapy Treatment Soft Tissue Mobilization HS Mobilization Type Rolling,Strumming,Sustained Pressure Intensity/Depth Moderate Body Position Supine Comments during stretch with belt Neuro Re-Education Treatment Balance Activities balance on stable surface Details Tandem stance Surface solid surface then airex Reps/Duration 2x60 sec Comments pt has increased difficulty with RLE infront PT-OP-T Assessment and Plan Start: 04/18/20 13:00 Freq: Status: Active Protocol: Document 06/07/20 09:29 [facility] (Rec: 06/07/20 10:16 [facility] [id number]) Physical Therapy Assessment Goals up/down from ground Field Crop I Farmworker Goal (LTG) Pt will be able to get up/dwon from the ground comfortably LTG Duration 07/01/20 sit to stand Short Term Goal (STG) Pt will be able to do 5x sit to manager intensive care 12 sec to show inc strength and dec risk for falls. 2-improved to 13 sec STG Duration 07/01/20 Field Crop I Farmworker Goal (LTG) Pt will be able to do 13 sit to stands in 30 sec to show improved strength and dec risk for falls. 2-improved to 11 LTG Duration 08/01/20 strength Short Term Goal (STG) Pt will be indep with HEP STG Duration achieved Group Home Goal (LTG) Pt will score 4+/5 for all LE motions to make pt have greater ease with getting around. 2-improving LTG Duration 08/01/20 FGA Impairment FGA 17/30 Field Crop I Farmworker Goal (LTG) Pt will score 25/30 on FGA to show dec risk for falls. 05/31-24 LTG Duration 08/01/20 oswestry Impairment 17/50 Field Crop I Farmworker Goal (LTG) Pt will improve score to 7/50 in order to show improved functional ability 05/31-imporved to 11/50 LTG Duration 06/18/20 Assessment Summary Assessment Pt had increased difficulty with RLE infront during tandem stance. Pt was able to walk tandem stance forward/backward with minimal use of parallel bars for balance during tx. She did have tenderness to palpation of jena HS today- added rolling pin to HS for HEP. Physical Therapy Plan Frequency and Duration Frequency of Treatment 2x/Week Duration of Treatment 2 months Plan of Care Start Date 05/31/20 Plan of Care End Date 08/01/20 Therapeutic Interventions Therapeutic Interventions Aquatic Therapy,Balance Training,Gait Training,Home Exercise Program,Joint Mobilizations,Manual Therapy, Neuromuscular Re-education, Patient/Caregiver Education, Self-Care/Home Management,Soft Tissue Mobilization,Taping, Therapeutic Activities, Therapeutic Exercises Modalities Cold Pack/Ice Massage,Electric Stimulation,Hot Packs Next Visit Focus/Plan Next Note Type Treatment Note Next Visit Plan Check how rolling HS at home went. Continue working balance, tandem stance on uneven surfaces and increasing leg strength
--- NOTE | 2020-06-12 10:29 | PT.OTN ---
Current Diagnoses Spondylolisthesis, site unspecified (06/12/20) Difficulty in walking, not elsewhere classified (06/12/20) Abnormal posture (06/12/20) Weakness (06/12/20) Physical Therapy Treatment Note PT-OP-A Visit Information Start: 04/18/20 13:00 Freq: Status: Active Protocol: Document 06/12/20 09:50 [facility] (Rec: 06/12/20 10:29 [facility] [id number]) Out-Patient Physical Therapy Visit Information Visit Information Visit Type Treatment Note Visit Start Time 09:45 Visit Stop Time 10:25 Total Visit Minutes 40 Visit Number 13 Number of GARAGE DOOR INSTALLER Visits 0 PT-OP-B Current Condition Start: 04/18/20 13:00 Freq: Status: Active Protocol: Document 04/18/20 14:33 [facility] (Rec: 04/18/20 15:18 [facility] [id number]) Current Condition History of Current Condition Onset Date December 26 Current Complaints LB & R>L leg History of Current Condition Pt reports being hospitalized for infected finger and felt like was off balance and weak since then. She was doing great since last bout of therapy until this. Pt reprots RLE sometimes feels like it is going to give out when she stands up. REports cont to do PT exercises. Pt reprots R leg , R hip and back has been bothering her. Since infection she has had inc difficulty getting up out of chair. Pt reports back and R leg bothers her when she walks a 1 mile or 2 miles. She typically has to lean against something to dec back painb ut it doesn't help her leg. Pt can only stand for 30 min or less but has to sit for a min to relieve pain Prior Treatments and Tests PT helped a lot in past mult times. Treatment Goals Patient/Caregiver Goals Dec pain, improve ability to walk with less pain, be able to get out of chair easier, be able to get up/down from tub & up/down from floor, improve abilityt o put L sock/shoe on PT-OP-C Subjective Start: 04/18/20 13:00 Freq: Status: Active Protocol: Document 06/12/20 09:50 [facility] (Rec: 06/12/20 10:29 [facility] [id number]) OP-PT Subjective Patient Comments Patient Comments Pt reports taking a fall off her step ladder later the last dday she was seen. Notes hit her head but had no neuro symptoms and was stiff after but no residual pain anymore. She missed the last step on the step ladder PT-OP-E Functional Tests Start: 04/18/20 13:00 Freq: Status: Active Protocol: Document 05/31/20 09:51 [facility] (Rec: 05/31/20 10:33 [facility] [id number]) Functional Tests 30 Second Sit to Stand Test Score 11 Five Times Sit to Stand Test Score 13 sec Functional Gait Assessment Score 24 PT-OP-F Manual Assessment Start: 04/18/20 13:00 Freq: Status: Active Protocol: Document 04/18/20 14:33 [facility] (Rec: 04/18/20 15:18 [facility] [id number]) Manual Assessments Soft Tissue Assessment Soft Tissue Mobility Assessment L>R ES & QL tightness, R glute & pifiromis tightness, R iliacus & quads Joint Mobility Assessment Joint Mobility Assessment R illiac crest higher, equal greater trochanters PT-OP-G Mobility & Gait Start: 04/18/20 13:00 Freq: Status: Active Protocol: Document 04/18/20 14:33 [facility] (Rec: 04/18/20 15:18 [facility] [id number]) OP Gait Assessment Comments Gait Comments Pt has lat leaning with gait w / dec push off B PT-OP-J Posture/Palpation/Skin Start: 04/18/20 13:00 Freq: Status: Active Protocol: Document 04/18/20 14:33 [facility] (Rec: 04/18/20 15:18 [facility] [id number]) Posture Evaluation Andres Postural Classification System Elbow Flexion Test 1 Lumbar Protective Mechanism Left AP 0 Lumbar Protective Mechanism Right AP 0 Lumbar Protective Mechanism Left PA 0 Lumbar Protective Mechanism Right PA 0 Comments Posture Comments scolosis, kyphosis & fwd head, R shear of pelvis, L iliac crest higher, valgus knees PT-OP-K Range of Motion Start: 04/18/20 13:00 Freq: Status: Active Protocol: Document 04/18/20 14:33 [facility] (Rec: 04/18/20 15:18 [facility] [id number]) Lumbar Spine Range of Motion Lumbar Spine Active Degrees Flexion 55 Extension 12 Rotation Left 21 Rotation Right 20 Lateral Flexion Left 10 Lateral Flexion Right 12 Comments pain w/ext & L SB PT-OP-L Special Tests Start: 04/18/20 13:00 Freq: Status: Active Protocol: Document 04/18/20 14:33 [facility] (Rec: 04/18/20 15:18 [facility] [id number]) Special Tests Lumbar Spine Special Tests Tay Test Results L mild iliacus & RF tightness SLR Test Results L 79 deg, R 70 deg Slump Test Results neg B PT-OP-M Strength Start: 04/18/20 13:00 Freq: Status: Active Protocol: Document 05/31/20 09:51 [facility] (Rec: 05/31/20 10:33 [facility] [id number]) Hip Strength Hip Manual Muscle Testing Right Flexion (L2) 4- Good- Extension (S1) 3+ Fair+ Abduction 3+ Fair+ External Rotation 4- Good- Internal Rotation 4 Good Left Flexion (L2) 4- Good- Extension (S1) 3+ Fair+ Abduction 3+ Fair+ External Rotation 4- Good- Internal Rotation 4 Good Knee Strength Knee Manual Muscle Testing Right Flexion (S2) 4+ Good+ Extension (L3) 5 Normal Left Flexion (S2) 4+ Good+ Extension (L3) 5 Normal Ankle/Foot Strength Ankle and Foot Manual Muscle Testing Left Dorsiflexion (L4) 5 Normal Plantarflexion (S1) 5 Normal Right Dorsiflexion (L4) 5 Normal Plantarflexion (S1) 5 Normal Comments seated PF tested B PT-OP-Q Treatments Start: 04/18/20 13:00 Freq: Status: Active Protocol: Document 06/12/20 09:50 [facility] (Rec: 06/12/20 10:29 [facility] [id number]) Cardio Equipment Recumbent Elliptical (Biodex) Duration (Minutes) 6 Resistance 8 Seat Position 8 Gym Equipment Shuttle Recovery Unilateral Squats Details Bilaterally Resistance 75# Shuttle Recovery Platform Stable Reps/Time 15 Bilateral Squats Details cueing to have feet apart and avoid knees knocking Resistance 125 Shuttle Recovery Platform Stable Reps/Time 2x15 Shuttle Balance red clips Comments fwd & side: WBOS, NBOS w/head turns fwd: staggered stance Therapeutic Exercises Standing Exercises lunges Side bilateral Reps/Minutes 10 Comments rail PRN Neuro Re-Education Treatment Balance Activities bosu Details standing balance marching steps with hold in SLS Details toe taps to 16 in step no UE support Equipment 5lb wt Reps/Duration 15 B Tandem Comments 1. stance B 2. tandem walking on line w/1 rail 20ftx2 3. fwd walking on line 20ftx2 4.modified tandem on blue tpads hurdles Equipment 6 hurdles Reps/Duration 5lbs onto each LE Comments fwd x6 side x2 B PT-OP-T Assessment and Plan Start: 04/18/20 13:00 Freq: Status: Active Protocol: Document 06/12/20 09:50 [facility] (Rec: 06/12/20 10:29 [facility] [id number]) Physical Therapy Assessment Goals up/down from ground Distributing Clerk Goal (LTG) Pt will be able to get up/dwon from the ground comfortably LTG Duration 07/01/20 sit to stand Short Term Goal (STG) Pt will be able to do 5x sit to business investor 12 sec to show inc strength and dec risk for falls. 2-improved to 13 sec STG Duration 07/01/20 Distributing Clerk Goal (LTG) Pt will be able to do 13 sit to stands in 30 sec to show improved strength and dec risk for falls. 2-improved to 11 LTG Duration 08/01/20 strength Short Term Goal (STG) Pt will be indep with HEP STG Duration achieved Halfway Goal (LTG) Pt will score 4+/5 for all LE motions to make pt have greater ease with getting around. 05/31-improving LTG Duration 08/01/20 FGA Impairment FGA 1730 Halfway Goal (LTG) Pt will score 25/30 on FGA to show dec risk for falls. 05/31- LTG Duration 08/01/20 oswestry Impairment 1750 Distributing Clerk Goal (LTG) Pt will improve score to 7/50 in order to show improved functional ability 05/31-imporved to LTG Duration 06/18/20 Assessment Summary Assessment Pt doing well with balance activities today and was able to do head turns on balance board and do inc wt during leg press. Pt did not appear to have any deficits d/t fall today. Physical Therapy Plan Frequency and Duration Frequency of Treatment 2x/Week Duration of Treatment 2 months Plan of Care Start Date 05/31/20 Plan of Care End Date 08/01/20 Next Visit Focus/Plan Next Visit Plan Continue working balance, trying tandem stance on uneven surface like airex. Increase leg strength
--- NOTE | 2020-06-14 10:20 | PT.OTN ---
Current Diagnoses Spondylolisthesis, site unspecified (06/14/20) Difficulty in walking, not elsewhere classified (06/14/20) Abnormal posture (06/14/20) Weakness (06/14/20) Physical Therapy Treatment Note PT-OP-A Visit Information Start: 04/18/20 13:00 Freq: Status: Active Protocol: Document 06/14/20 09:27 [facility] (Rec: 06/14/20 10:19 [facility] [id number]) Out-Patient Physical Therapy Visit Information Visit Information Visit Type Treatment Note Visit Start Time 09:24 Visit Stop Time 10:08 Total Visit Minutes 44 Visit Number 14 Number of CORONER Visits 1 PT-OP-B Current Condition Start: 04/18/20 13:00 Freq: Status: Active Protocol: Document 04/18/20 14:33 [facility] (Rec: 04/18/20 15:18 [facility] [id number]) Current Condition History of Current Condition Onset Date December 26 Current Complaints LB & R>L leg History of Current Condition Pt reports being hospitalized for infected finger and felt like was off balance and weak since then. She was doing great since last bout of therapy until this. Pt reprots RLE sometimes feels like it is going to give out when she stands up. REports cont to do PT exercises. Pt reprots R leg , R hip and back has been bothering her. Since infection she has had inc difficulty getting up out of chair. Pt reports back and R leg bothers her when she walks a 1 mile or 2 miles. She typically has to lean against something to dec back painb ut it doesn't help her leg. Pt can only stand for 30 min or less but has to sit for a min to relieve pain Prior Treatments and Tests PT helped a lot in past mult times. Treatment Goals Patient/Caregiver Goals Dec pain, improve ability to walk with less pain, be able to get out of chair easier, be able to get up/down from tub & up/down from floor, improve abilityt o put L sock/shoe on PT-OP-C Subjective Start: 04/18/20 13:00 Freq: Status: Active Protocol: Document 06/14/20 09:27 [facility] (Rec: 06/14/20 10:19 [facility] [id number]) OP-PT Subjective Patient Comments Patient Comments Pt reports blood pressure was 98/65 this morning but she is feeling fine. She states this happens about 2x/month PT-OP-E Functional Tests Start: 04/18/20 13:00 Freq: Status: Active Protocol: Document 05/31/20 09:51 [facility] (Rec: 05/31/20 10:33 [facility] [id number]) Functional Tests 30 Second Sit to Stand Test Score 11 Five Times Sit to Stand Test Score 13 sec Functional Gait Assessment Score 24 PT-OP-F Manual Assessment Start: 04/18/20 13:00 Freq: Status: Active Protocol: Document 04/18/20 14:33 [facility] (Rec: 04/18/20 15:18 [facility] [id number]) Manual Assessments Soft Tissue Assessment Soft Tissue Mobility Assessment L>R ES & QL tightness, R glute & pifiromis tightness, R iliacus & quads Joint Mobility Assessment Joint Mobility Assessment R illiac crest higher, equal greater trochanters PT-OP-G Mobility & Gait Start: 04/18/20 13:00 Freq: Status: Active Protocol: Document 04/18/20 14:33 [facility] (Rec: 04/18/20 15:18 [facility] [id number]) OP Gait Assessment Comments Gait Comments Pt has lat leaning with gait w / dec push off B PT-OP-J Posture/Palpation/Skin Start: 04/18/20 13:00 Freq: Status: Active Protocol: Document 04/18/20 14:33 [facility] (Rec: 04/18/20 15:18 [facility] [id number]) Posture Evaluation Andres Postural Classification System Elbow Flexion Test 1 Lumbar Protective Mechanism Left AP 0 Lumbar Protective Mechanism Right AP 0 Lumbar Protective Mechanism Left PA 0 Lumbar Protective Mechanism Right PA 0 Comments Posture Comments scolosis, kyphosis & fwd head, R shear of pelvis, L iliac crest higher, valgus knees PT-OP-K Range of Motion Start: 04/18/20 13:00 Freq: Status: Active Protocol: Document 04/18/20 14:33 [facility] (Rec: 04/18/20 15:18 [facility] [id number]) Lumbar Spine Range of Motion Lumbar Spine Active Degrees Flexion 55 Extension 12 Rotation Left 21 Rotation Right 20 Lateral Flexion Left 10 Lateral Flexion Right 12 Comments pain w/ext & L SB PT-OP-L Special Tests Start: 04/18/20 13:00 Freq: Status: Active Protocol: Document 04/18/20 14:33 [facility] (Rec: 04/18/20 15:18 [facility] [id number]) Special Tests Lumbar Spine Special Tests Tay Test Results L mild iliacus & RF tightness SLR Test Results L 79 deg, R 70 deg Slump Test Results neg B PT-OP-M Strength Start: 04/18/20 13:00 Freq: Status: Active Protocol: Document 05/31/20 09:51 [facility] (Rec: 05/31/20 10:33 [facility] [id number]) Hip Strength Hip Manual Muscle Testing Right Flexion (L2) 4- Good- Extension (S1) 3+ Fair+ Abduction 3+ Fair+ External Rotation 4- Good- Internal Rotation 4 Good Left Flexion (L2) 4- Good- Extension (S1) 3+ Fair+ Abduction 3+ Fair+ External Rotation 4- Good- Internal Rotation 4 Good Knee Strength Knee Manual Muscle Testing Right Flexion (S2) 4+ Good+ Extension (L3) 5 Normal Left Flexion (S2) 4+ Good+ Extension (L3) 5 Normal Ankle/Foot Strength Ankle and Foot Manual Muscle Testing Left Dorsiflexion (L4) 5 Normal Plantarflexion (S1) 5 Normal Right Dorsiflexion (L4) 5 Normal Plantarflexion (S1) 5 Normal Comments seated PF tested B PT-OP-Q Treatments Start: 04/18/20 13:00 Freq: Status: Active Protocol: Document 06/14/20 09:27 [facility] (Rec: 06/14/20 10:19 [facility] [id number]) Gym Equipment Shuttle Recovery Unilateral Squats Details Bilaterally Resistance 75# Shuttle Recovery Platform Stable Reps/Time 2 sets; 1x15, 1x10 Bilateral Squats Details cueing to have feet apart and avoid knees knocking Resistance 125 Shuttle Recovery Platform Stable Reps/Time 2x15 Shuttle Balance red clips Comments fwd WBOS, modified tandem Therapeutic Exercises Standing Exercises lunges Side bilateral Reps/Minutes 10 Comments rail PRN Therapeutic Activity Therapeutic Activity Floor Transfers Reps/Minutes 5 min Comments working on pushing through LLE to stand and balancing upon standing Manual Therapy Treatment Soft Tissue Mobilization glutes Body Location Frank glutes R>L Mobilization Type Sustained Pressure,Trigger Point Release Intensity/Depth Moderate Body Position Prone Comments Pillow under stomach Neuro Re-Education Treatment Balance Activities Tandem Equipment foam pad Comments 1. bilateral stance 2. tandem stance EO/EC hurdles Equipment 6 hurdles Reps/Duration 5lbs onto each LE Comments fwd x6 side x2 B PT-OP-T Assessment and Plan Start: 04/18/20 13:00 Freq: Status: Active Protocol: Document 06/14/20 09:27 [facility] (Rec: 06/14/20 10:19 [facility] [id number]) Physical Therapy Assessment Goals up/down from ground Assisted Goal (LTG) Pt will be able to get up/dwon from the ground comfortably LTG Duration 07/01/20 sit to stand Short Term Goal (STG) Pt will be able to do 5x sit to pelts skinner 12 sec to show inc strength and dec risk for falls. 05/31-improved to 13 sec STG Duration 07/01/20 Subscription Clerk Goal (LTG) Pt will be able to do 13 sit to stands in 30 sec to show improved strength and dec risk for falls. 05/31-improved to 11 LTG Duration 08/01/20 strength Short Term Goal (STG) Pt will be indep with HEP STG Duration achieved Subscription Clerk Goal (LTG) Pt will score 4+/5 for all LE motions to make pt have greater ease with getting around. 05/31-improving LTG Duration 08/01/20 FGA Impairment FGA 17/30 Assisted Goal (LTG) Pt will score 25/30 on FGA to show dec risk for falls. 05/31-24 LTG Duration 08/01/20 oswestry Impairment 17/50 Subscription Clerk Goal (LTG) Pt will improve score to 7/50 in order to show improved functional ability 05/31-imporved to 11/50 LTG Duration 06/18/20 Assessment Summary Assessment Pt states she feels stronger on leg press. Continues to have difficulty with modified tandem stance, more so with the RLE infront. During hurdles, pt tends to abduct LLE, but can step correctly when cued for proper knee/hip flexion. Pt is able to get off floor comfortably with minor LOB upon standing. Widening stance before standing up helped decrease LOB. Physical Therapy Plan Frequency and Duration Frequency of Treatment 2x/Week Duration of Treatment 2 months Plan of Care Start Date 05/31/20 Plan of Care End Date 08/01/20 Therapeutic Interventions Therapeutic Interventions Aquatic Therapy,Balance Training,Gait Training,Home Exercise Program,Joint Mobilizations,Manual Therapy, Neuromuscular Re-education, Patient/Caregiver Education, Self-Care/Home Management,Soft Tissue Mobilization,Taping, Therapeutic Activities, Therapeutic Exercises Modalities Cold Pack/Ice Massage,Electric Stimulation,Hot Packs Next Visit Focus/Plan Next Visit Plan Continue working balance, trying tandem stance on uneven surface like airex. Increase leg strength
--- NOTE | 2020-06-22 11:13 | PT.OTN ---
Current Diagnoses Spondylolisthesis, site unspecified (06/22/20) Difficulty in walking, not elsewhere classified (06/22/20) Abnormal posture (06/22/20) Weakness (06/22/20) Physical Therapy Treatment Note PT-OP-A Visit Information Start: 04/18/20 13:00 Freq: Status: Active Protocol: Document 06/22/20 10:36 [facility] (Rec: 06/22/20 11:13 [facility] [id number]) Out-Patient Physical Therapy Visit Information Visit Information Visit Type Treatment Note Visit Start Time 10:32 Visit Stop Time 11:12 Total Visit Minutes 40 Visit Number 15 Number of MECHANIC/WELDER Visits 0 PT-OP-B Current Condition Start: 04/18/20 13:00 Freq: Status: Active Protocol: Document 04/18/20 14:33 [facility] (Rec: 04/18/20 15:18 [facility] [id number]) Current Condition History of Current Condition Onset Date December 26 Current Complaints LB & R>L leg History of Current Condition Pt reports being hospitalized for infected finger and felt like was off balance and weak since then. She was doing great since last bout of therapy until this. Pt reprots RLE sometimes feels like it is going to give out when she stands up. REports cont to do PT exercises. Pt reprots R leg , R hip and back has been bothering her. Since infection she has had inc difficulty getting up out of chair. Pt reports back and R leg bothers her when she walks a 1 mile or 2 miles. She typically has to lean against something to dec back painb ut it doesn't help her leg. Pt can only stand for 30 min or less but has to sit for a min to relieve pain Prior Treatments and Tests PT helped a lot in past mult times. Treatment Goals Patient/Caregiver Goals Dec pain, improve ability to walk with less pain, be able to get out of chair easier, be able to get up/down from tub & up/down from floor, improve abilityt o put L sock/shoe on PT-OP-C Subjective Start: 04/18/20 13:00 Freq: Status: Active Protocol: Document 06/22/20 10:36 [facility] (Rec: 06/22/20 11:13 [facility] [id number]) OP-PT Subjective Patient Comments Patient Comments Pt reports she had an episode of lightheadness and low BP yesteerday but is feeling better today. PT-OP-E Functional Tests Start: 04/18/20 13:00 Freq: Status: Active Protocol: Document 05/31/20 09:51 [facility] (Rec: 05/31/20 10:33 [facility] [id number]) Functional Tests 30 Second Sit to Stand Test Score 11 Five Times Sit to Stand Test Score 13 sec Functional Gait Assessment Score 24 PT-OP-F Manual Assessment Start: 04/18/20 13:00 Freq: Status: Active Protocol: Document 04/18/20 14:33 [facility] (Rec: 04/18/20 15:18 [facility] [id number]) Manual Assessments Soft Tissue Assessment Soft Tissue Mobility Assessment L>R ES & QL tightness, R glute & pifiromis tightness, R iliacus & quads Joint Mobility Assessment Joint Mobility Assessment R illiac crest higher, equal greater trochanters PT-OP-G Mobility & Gait Start: 04/18/20 13:00 Freq: Status: Active Protocol: Document 04/18/20 14:33 [facility] (Rec: 04/18/20 15:18 [facility] [id number]) OP Gait Assessment Comments Gait Comments Pt has lat leaning with gait w / dec push off B PT-OP-J Posture/Palpation/Skin Start: 04/18/20 13:00 Freq: Status: Active Protocol: Document 04/18/20 14:33 [facility] (Rec: 04/18/20 15:18 [facility] [id number]) Posture Evaluation Andres Postural Classification System Elbow Flexion Test 1 Lumbar Protective Mechanism Left AP 0 Lumbar Protective Mechanism Right AP 0 Lumbar Protective Mechanism Left PA 0 Lumbar Protective Mechanism Right PA 0 Comments Posture Comments scolosis, kyphosis & fwd head, R shear of pelvis, L iliac crest higher, valgus knees PT-OP-K Range of Motion Start: 04/18/20 13:00 Freq: Status: Active Protocol: Document 04/18/20 14:33 [facility] (Rec: 04/18/20 15:18 [facility] [id number]) Lumbar Spine Range of Motion Lumbar Spine Active Degrees Flexion 55 Extension 12 Rotation Left 21 Rotation Right 20 Lateral Flexion Left 10 Lateral Flexion Right 12 Comments pain w/ext & L SB PT-OP-L Special Tests Start: 04/18/20 13:00 Freq: Status: Active Protocol: Document 04/18/20 14:33 [facility] (Rec: 04/18/20 15:18 [facility] [id number]) Special Tests Lumbar Spine Special Tests Tay Test Results L mild iliacus & RF tightness SLR Test Results L 79 deg, R 70 deg Slump Test Results neg B PT-OP-M Strength Start: 04/18/20 13:00 Freq: Status: Active Protocol: Document 05/31/20 09:51 [facility] (Rec: 05/31/20 10:33 [facility] [id number]) Hip Strength Hip Manual Muscle Testing Right Flexion (L2) 4- Good- Extension (S1) 3+ Fair+ Abduction 3+ Fair+ External Rotation 4- Good- Internal Rotation 4 Good Left Flexion (L2) 4- Good- Extension (S1) 3+ Fair+ Abduction 3+ Fair+ External Rotation 4- Good- Internal Rotation 4 Good Knee Strength Knee Manual Muscle Testing Right Flexion (S2) 4+ Good+ Extension (L3) 5 Normal Left Flexion (S2) 4+ Good+ Extension (L3) 5 Normal Ankle/Foot Strength Ankle and Foot Manual Muscle Testing Left Dorsiflexion (L4) 5 Normal Plantarflexion (S1) 5 Normal Right Dorsiflexion (L4) 5 Normal Plantarflexion (S1) 5 Normal Comments seated PF tested B PT-OP-Q Treatments Start: 04/18/20 13:00 Freq: Status: Active Protocol: Document 06/22/20 10:36 [facility] (Rec: 06/22/20 11:13 [facility] [id number]) Cardio Equipment Recumbent Elliptical (Biodex) Duration (Minutes) 6 Resistance 6-8 Seat Position 8 Gym Equipment Shuttle Recovery Unilateral Squats Details Bilaterally Resistance 75# Shuttle Recovery Platform Stable Reps/Time 2 sets; 1x15, 1x10 Bilateral Squats Details cueing to have feet apart and avoid knees knocking Resistance 100 Shuttle Recovery Platform Stable Reps/Time 2x15 Shuttle Balance red clips Comments fwd & side: WBOS, NBOS w/head turns fwd: staggered stance Therapeutic Exercises Standing Exercises lunges Standing Exercise Name mini Side bilateral Reps/Minutes 4 Comments rail PRN hip hike Side bilateral Reps/Minutes 10 Neuro Re-Education Treatment Balance Activities bosu Details standing balance Sit to Stands on Rocker Board Details Sit to Stands on Rocker Board Surface unstable Equipment black mat, gait belt Reps/Duration 2x10 Comments Done with rocker board in A/P and L Tandem Comments 1. stance B 2. tandem walking on line w/1 rail 20ftx2 3. fwd walking on line 20ftx2 4.modified tandem on blue tpads Rocker Board Details fwd/back &side<>side wt shifts PT-OP-T Assessment and Plan Start: 04/18/20 13:00 Freq: Status: Active Protocol: Document 06/22/20 10:36 [facility] (Rec: 06/22/20 11:13 [facility] [id number]) Physical Therapy Assessment Goals up/down from ground Sheet Metal Supervisor Goal (LTG) Pt will be able to get up/dwon from the ground comfortably LTG Duration 07/01/20 sit to stand Short Term Goal (STG) Pt will be able to do 5x sit to aws software development engineer 12 sec to show inc strength and dec risk for falls. 05/31-improved to 13 sec STG Duration 07/01/20 Snf Goal (LTG) Pt will be able to do 13 sit to stands in 30 sec to show improved strength and dec risk for falls. 2-improved to 11 LTG Duration 08/01/20 strength Short Term Goal (STG) Pt will be indep with HEP STG Duration achieved Snf Goal (LTG) Pt will score 4+/5 for all LE motions to make pt have greater ease with getting around. 05/31-improving LTG Duration 08/01/20 FGA Impairment FGA 17/30 Snf Goal (LTG) Pt will score 25/30 on FGA to show dec risk for falls. 05/31- LTG Duration 08/01/20 oswestry Impairment 17/50 Sheet Metal Supervisor Goal (LTG) Pt will improve score to 7/50 in order to show improved functional ability 05/31-imporved to 11/50 LTG Duration 06/18/20 Assessment Summary Assessment PT able to tolerated unstable surfaces for leg press but did require cueing & focus to not let RLE IR and cause knee pain. Improving balance w/NBOS . Physical Therapy Plan Frequency and Duration Frequency of Treatment 2x/Week Duration of Treatment 2 months Plan of Care Start Date 05/31/20 Plan of Care End Date 08/01/20 Next Visit Focus/Plan Next Note Type Treatment Note Next Visit Plan makew sure hep set for dc next wk
--- NOTE | 2020-06-26 10:32 | PT.OTN ---
Current Diagnoses Spondylolisthesis, site unspecified (06/26/20) Difficulty in walking, not elsewhere classified (06/26/20) Abnormal posture (06/26/20) Weakness (06/26/20) Physical Therapy Treatment Note PT-OP-A Visit Information Start: 04/18/20 13:00 Freq: Status: Active Protocol: Document 06/26/20 09:44 [facility] (Rec: 06/26/20 10:32 [facility] [id number]) Out-Patient Physical Therapy Visit Information Visit Information Visit Type Discharge Summary Visit Note 01/06 Visit Start Time 09:43 Visit Stop Time 10:23 Total Visit Minutes 40 Visit Number 16 Number of PRODUCTION ASSEMBLY OPERATOR Visits 0 PT-OP-B Current Condition Start: 04/18/20 13:00 Freq: Status: Active Protocol: Document 04/18/20 14:33 [facility] (Rec: 04/18/20 15:18 [facility] [id number]) Current Condition History of Current Condition Onset Date December 26 Current Complaints LB & R>L leg History of Current Condition Pt reports being hospitalized for infected finger and felt like was off balance and weak since then. She was doing great since last bout of therapy until this. Pt reprots RLE sometimes feels like it is going to give out when she stands up. REports cont to do PT exercises. Pt reprots R leg , R hip and back has been bothering her. Since infection she has had inc difficulty getting up out of chair. Pt reports back and R leg bothers her when she walks a 1 mile or 2 miles. She typically has to lean against something to dec back painb ut it doesn't help her leg. Pt can only stand for 30 min or less but has to sit for a min to relieve pain Prior Treatments and Tests PT helped a lot in past mult times. Treatment Goals Patient/Caregiver Goals Dec pain, improve ability to walk with less pain, be able to get out of chair easier, be able to get up/down from tub & up/down from floor, improve abilityt o put L sock/shoe on PT-OP-C Subjective Start: 04/18/20 13:00 Freq: Status: Active Protocol: Document 06/26/20 09:44 [facility] (Rec: 06/26/20 10:32 [facility] [id number]) OP-PT Subjective Patient Comments Patient Comments Pt feels ready for DC PT-OP-E Functional Tests Start: 04/18/20 13:00 Freq: Status: Active Protocol: Document 05/31/20 09:51 [facility] (Rec: 05/31/20 10:33 [facility] [id number]) Functional Tests 30 Second Sit to Stand Test Score 11 Five Times Sit to Stand Test Score 13 sec Functional Gait Assessment Score 24 PT-OP-F Manual Assessment Start: 04/18/20 13:00 Freq: Status: Active Protocol: Document 04/18/20 14:33 [facility] (Rec: 04/18/20 15:18 [facility] [id number]) Manual Assessments Soft Tissue Assessment Soft Tissue Mobility Assessment L>R ES & QL tightness, R glute & pifiromis tightness, R iliacus & quads Joint Mobility Assessment Joint Mobility Assessment R illiac crest higher, equal greater trochanters PT-OP-G Mobility & Gait Start: 04/18/20 13:00 Freq: Status: Active Protocol: Document 04/18/20 14:33 [facility] (Rec: 04/18/20 15:18 [facility] [id number]) OP Gait Assessment Comments Gait Comments Pt has lat leaning with gait w / dec push off B PT-OP-J Posture/Palpation/Skin Start: 04/18/20 13:00 Freq: Status: Active Protocol: Document 04/18/20 14:33 [facility] (Rec: 04/18/20 15:18 [facility] [id number]) Posture Evaluation Andres Postural Classification System Elbow Flexion Test 1 Lumbar Protective Mechanism Left AP 0 Lumbar Protective Mechanism Right AP 0 Lumbar Protective Mechanism Left PA 0 Lumbar Protective Mechanism Right PA 0 Comments Posture Comments scolosis, kyphosis & fwd head, R shear of pelvis, L iliac crest higher, valgus knees PT-OP-K Range of Motion Start: 04/18/20 13:00 Freq: Status: Active Protocol: Document 04/18/20 14:33 [facility] (Rec: 04/18/20 15:18 [facility] [id number]) Lumbar Spine Range of Motion Lumbar Spine Active Degrees Flexion 55 Extension 12 Rotation Left 21 Rotation Right 20 Lateral Flexion Left 10 Lateral Flexion Right 12 Comments pain w/ext & L SB PT-OP-L Special Tests Start: 04/18/20 13:00 Freq: Status: Active Protocol: Document 04/18/20 14:33 [facility] (Rec: 04/18/20 15:18 [facility] [id number]) Special Tests Lumbar Spine Special Tests Tay Test Results L mild iliacus & RF tightness SLR Test Results L 79 deg, R 70 deg Slump Test Results neg B PT-OP-M Strength Start: 04/18/20 13:00 Freq: Status: Active Protocol: Document 05/31/20 09:51 [facility] (Rec: 05/31/20 10:33 [facility] [id number]) Hip Strength Hip Manual Muscle Testing Right Flexion (L2) 4- Good- Extension (S1) 3+ Fair+ Abduction 3+ Fair+ External Rotation 4- Good- Internal Rotation 4 Good Left Flexion (L2) 4- Good- Extension (S1) 3+ Fair+ Abduction 3+ Fair+ External Rotation 4- Good- Internal Rotation 4 Good Knee Strength Knee Manual Muscle Testing Right Flexion (S2) 4+ Good+ Extension (L3) 5 Normal Left Flexion (S2) 4+ Good+ Extension (L3) 5 Normal Ankle/Foot Strength Ankle and Foot Manual Muscle Testing Left Dorsiflexion (L4) 5 Normal Plantarflexion (S1) 5 Normal Right Dorsiflexion (L4) 5 Normal Plantarflexion (S1) 5 Normal Comments seated PF tested B PT-OP-Q Treatments Start: 04/18/20 13:00 Freq: Status: Active Protocol: Document 06/26/20 09:44 [facility] (Rec: 06/26/20 10:32 [facility] [id number]) Cardio Equipment Recumbent Elliptical (Biodex) Duration (Minutes) 6 Resistance 7 Seat Position 7 Gym Equipment Shuttle Balance red clips Comments fwd & side: WBOS, NBOS fwd: staggered stance Therapeutic Exercises Standing Exercises sit to stand Comments 5x & 30 sec Squat at railing Reps/Minutes 10 Manual Therapy Treatment Soft Tissue Mobilization glutes Body Location R Mobilization Type Sustained Pressure,Trigger Point Release Intensity/Depth Moderate Body Position Sidelying QL, paraspinals, ES Body Location R Mobilization Type Rolling,Sustained Pressure Intensity/Depth Moderate Body Position Sidelying Neuro Re-Education Treatment Other Activities testing Details FGA Self-Care/Home Management Treatment Education Patient Education Home Exercise Program Other Education review hep, edu to make sure eating balance diet and drinking enough water to dec cramps, discuss w/MD re: supplements if they cont. Attempt something like soap at end of bed PT-OP-T Assessment and Plan Start: 04/18/20 13:00 Freq: Status: Active Protocol: Document 06/26/20 09:44 [facility] (Rec: 06/26/20 10:32 [facility] [id number]) Physical Therapy Assessment Goals up/down from ground Dry Primer Powder Blender Goal (LTG) Pt will be able to get up/dwon from the ground comfortably LTG Duration achieved sit to stand Short Term Goal (STG) Pt will be able to do 5x sit to dry chain operator 12 sec to show inc strength and dec risk for falls. 2-improved to 13 sec STG Duration achieved 11 sec Dry Primer Powder Blender Goal (LTG) Pt will be able to do 13 sit to stands in 30 sec to show improved strength and dec risk for falls. 2-improved to 11 LTG Duration 12 sin 30 sec strength Short Term Goal (STG) Pt will be indep with HEP STG Duration achieved Dry Primer Powder Blender Goal (LTG) Pt will score 4+/5 for all LE motions to make pt have greater ease with getting around. 2-improving LTG Duration improving to cont w/hep FGA Impairment FGA [address] Goal (LTG) Pt will score 25/30 on FGA to show dec risk for falls. 05/31- LTG Duration 08/01/20 oswestry Impairment 17/50 Dry Primer Powder Blender Goal (LTG) Pt will improve score to 7/50 in order to show improved functional ability 05/31-imporved to LTG Duration achieved to 4/50 Assessment Summary Assessment Pt has made excellent progress with therapy and has imrpoved with her strength, balance, pain and overall mobility. She is indep with HEP and ready to be DC Physical Therapy Plan Discharge Physical Therapy Discharge Reasons Goals Met
== END 2020-06-28 12:53 | disposition home or self-care (01) ==
LOC: PHYS 09:45
PROVIDERS: PCP Family Medicine; Referring Provider Family Medicine; Visit Provider Family Medicine
DX: M43.10 Spondylolisthesis, site unspecified (principal); R53.1 Weakness; R26.2 Difficulty in walking, not elsewhere classified; R29.3 Abnormal posture
CPT/HCPCS: 97110; 97112; 97140; 97162

== ENCOUNTER → 2020-07-19 11:24 | Outpatient (CLI) | payer MEDICARE, OTHER, SELFPAY ==
[2019-12-27 22:30] VITALS: BMI 24.0
[2020-07-19 14:34] LABS: COVID19 -Nasal RAPID Negative (Negative)
== END ==
PROVIDERS: PCP Family Medicine; Visit Provider Family Medicine Sleep Medicine
DX: Z20.822 Contact with and (suspected) exposure to COVID-19 (principal); G47.33 Obstructive sleep apnea (adult) (pediatric)
CPT/HCPCS: 87635; 95810

== ENCOUNTER → 2020-08-01 15:27 | Outpatient (CLI) | payer MEDICARE, OTHER, SELFPAY ==
[2019-12-27 22:30] VITALS: BMI 24.0
[2020-08-01 16:26] LABS: Add Manual Diff / Slide Review NO; Basophils Absolute Auto 100 /uL (0-100); Basophils Percent Auto 0.9 % (0-2); Eosinophils Absolute Auto 200 /uL (0-450); Eosinophils Percent Auto 3.9 % (2-4); Hematocrit 37.2 % (36-46); Hemoglobin 12.2 g/dL (12.0-16.0); Lymphocytes Absolute Auto 1500 /uL (1100-4500); Lymphocytes Percent Auto 24.4 % (25-40); Mean Corpuscular HGB Conc 32.9 % (30-36); Mean Corpuscular Volume 91.2 fL (80-100); Monocytes Absolute Auto 700 /uL (0-900); Monocytes Percent Auto 12.2 % (3-14); Neutrophils Absolute Auto 3500 /uL (1500-7000); Neutrophils Percent Auto 58.6 % (50-75); Platelet Count 200 X10^3/uL (150-400); Red Blood Cell Count 4.08 X10^6/uL (4.0-5.2); Red Cell Distribution Width 13.9 % (11.6-14.8)
[2020-08-01 16:36] LABS: HEMOLYSIS < 15 (0-50)
[2020-08-01 16:41] LABS: Alanine Aminotransferase 28 IU/L (<35); Albumin 4.1 g/dL (3.5-5.0); Albumin Globulin Ratio 1.4 (1.0-2.8); Alkaline Phosphatase 90 U/L (38-126); Aspartate Aminotransferase 38 IU/L (14-36); BUN Creatinine Ratio 29.8 (6-22); Bilirubin Total 0.3 mg/dL (0.2-1.3); Blood Urea Nitrogen 25 mg/dL (7-17); Calcium 9.3 mg/dL (8.4-10.2); Carbon Dioxide 33 mmol/L (22-32); Chloride 98 mmol/L (98-107); Creatine Kinase 51 U/L (30-135); Estimated Glomerular Filt Rate > 60.0 mL/min (>60); Glucose 94 mg/dL (80-110); Potassium 4.1 mmol/L (3.4-5.1); Sodium 133 mmol/L (137-145); Total Protein 7.1 g/dL (6.3-8.2)
[2020-08-01 17:04] LABS: C-Reactive Protein Quant < 0.5 mg/dL (<1.0); Rheumatoid Factor < 8.6 IU/mL (<12.0)
[2020-08-01 17:14] LABS: Erythrocyte Sedimentation Rate 15 MM/HR (0-20)
[2020-08-01 17:18] LABS: TSH w/ Reflex to FT4 3.21 uIU/mL (0.47-4.68)
[2020-08-03 15:08] LABS: ANA Screen, IFA Negative (.)
[2020-08-03 21:10] LABS: CCP Antibodies IgG/IgA 6 units (0-19)
== END ==
PROVIDERS: PCP Student in an Organized Health Care Education/Training Program; Referring Provider Student in an Organized Health Care Education/Training Program; Visit Provider Student in an Organized Health Care Education/Training Program
DX: M33.20 Polymyositis, organ involvement unspecified (principal)
CPT/HCPCS: 36415; 80053; 82550; 84443; 85025; 85651; 86038; 86140; 86200; 86430

== ENCOUNTER → 2020-08-28 12:58 | Outpatient (CLI) | payer MEDICARE, OTHER, SELFPAY ==
[2019-12-27 22:30] VITALS: BMI 24.0
[2020-08-28 14:45] LABS: COVID19 -Nasal RAPID Negative (Negative)
== END ==
PROVIDERS: PCP Student in an Organized Health Care Education/Training Program; Visit Provider Family Medicine Sleep Medicine
DX: Z20.822 Contact with and (suspected) exposure to COVID-19 (principal); G47.33 Obstructive sleep apnea (adult) (pediatric)
CPT/HCPCS: 87635; 95811

== ENCOUNTER → 2020-08-30 08:03 | Outpatient (CLI) | payer MEDICARE, OTHER, SELFPAY ==
[2019-12-27 22:30] VITALS: BMI 24.0
== END ==
PROVIDERS: PCP Student in an Organized Health Care Education/Training Program; Referring Provider Student in an Organized Health Care Education/Training Program; Visit Provider Student in an Organized Health Care Education/Training Program
DX: M33.20 Polymyositis, organ involvement unspecified (principal)
CPT/HCPCS: 36415; 86235

== ENCOUNTER → 2020-10-18 14:10 | Outpatient (CLI) | payer MEDICARE, OTHER, SELFPAY ==
[2019-12-27 22:30] VITALS: BMI 24.0
--- NOTE | 2020-10-18 14:11 | DI.MRI.S_ITS ---
PROCEDURE: MR LUMBAR SPINE WO CON INDICATIONS: Neurogenic claudication TECHNIQUE: Noncontrast sagittal T1 spin echo and T2 fast echo, sagittal STIR, axial T1 and T2 fast spin echo through the lumbar spine. In cases with scoliosis, additional coronal T2 fast spin echo may be performed. COMPARISON: None. FINDINGS: Image quality: Excellent. Alignment and Curvature: There is mild L5-S1 anterolisthesis. There is trace L1-L2, L2-L3 and L3-L4 retrolisthesis. There is approximately 20? of convex left lumbar spine scoliosis. Bone Marrow: Reactive endplate changes noted adjacent to the L1-L2, L2-L3, L3-L4 and L4-L5 discs. No acute vertebral body compression fractures. Spinal Cord: Conus medullaris terminates at the L1 level. Visualized cord demonstrates normal signal and size. Paraspinous Soft Tissues: No paravertebral masses. T12-L1: Loss of disc signal. Minimal, diffuse disc bulge. No central stenosis. No neural foraminal narrowing. No neural compression L1-L2: Loss of disc signal. Mild, diffuse disc bulge. Mild bilateral facet hypertrophy. Mild narrowing of the central canal. Mild bilateral neural foraminal narrowing. No neural compression. L2-L3: Loss of disc signal and height. Mild, diffuse disc bulge. Loss of disc signal and height. Mild, diffuse disc bulge. [id number] bilateral facet hypertrophy. Mild narrowing of the central canal. Moderate bilateral neural foraminal narrowing. No neural compression. L3-L4: Loss of disc signal and height. Moderate, diffuse disc bulge. Mild right moderate left facet hypertrophy. Mild narrowing of the central canal. Moderate right and severe left neural foraminal narrowing with compression of the exiting left L3 nerve root. L4-L5: Loss of disc signal and height. Mild, diffuse disc bulge. Mild right and moderate left facet hypertrophy. Mild narrowing of the central canal. Severe left neural foraminal narrowing with compression of the exiting left L4 nerve root. L5-S1: Loss of disc signal. Mild, diffuse disc bulge. Moderate bilateral facet hypertrophy. No central stenosis. Moderate left neural foraminal narrowing. No neural compression IMPRESSION: 1. Convex left scoliosis. 2. Multilevel degenerative disc disease. 3. Multilevel facet arthropathy. 4. No severe central canal narrowing. Five. Severe left L3-L4 and L4-L5 neural foraminal narrowing with compression of the exiting left L3 and left L4 nerve roots. Dictated by: Kaur Lux MD, PhD on 10/18/2020 at 16:08 Approved by: Kaur Lux MD, PhD on 10/18/2020 at 16:19
== END ==
PROVIDERS: PCP Student in an Organized Health Care Education/Training Program; Referring Provider Student in an Organized Health Care Education/Training Program; Visit Provider Student in an Organized Health Care Education/Training Program
DX: M43.17 Spondylolisthesis, lumbosacral region (principal); M51.16 Intervertebral disc disorders with radiculopathy, lumbar region; M47.26 Other spondylosis with radiculopathy, lumbar region; M51.17 Intervertebral disc disorders with radiculopathy, lumbosacral region; M47.27 Other spondylosis with radiculopathy, lumbosacral region; M41.86 Other forms of scoliosis, lumbar region; M43.10 Spondylolisthesis, site unspecified; R29.898 Other symptoms and signs involving the musculoskeletal system; R20.0 Anesthesia of skin
CPT/HCPCS: 72148

== ENCOUNTER → 2020-10-26 12:15 | Outpatient (CLI) | payer MEDICARE, OTHER, SELFPAY ==
[2019-12-27 22:30] VITALS: BMI 24.0
[2020-10-25 11:27] VITALS: BMI 24.0
--- NOTE | 2020-10-26 12:17 | DI.RAD.S_ITS ---
PROCEDURE: XR LUMBAR SPINE MIN 4V INDICATIONS: BACK PAIN TECHNIQUE: 5 views of the lumbar spine were acquired, including bilateral oblique views. COMPARISON: [facility], , XR LUMBAR SPINE MIN 4V, 08/04/2019, 9:05. FINDINGS: Bones: 5 nonrib-bearing vertebrae are present. Redemonstration of moderate levoconvex lumbar scoliosis. There is minimal retrolisthesis of L2 on L3 and L3 on L4. This is not significantly changed. No acute vertebral body compression fractures. No suspicious bony lesions. No definite pars defect seen on the oblique views. Moderate-severe multilevel lumbar spondylitic changes seen throughout the thoracolumbar junction and lumbar spine. Moderate mid and lower lumbar facet arthropathy. Disc space narrowing seen throughout the lumbar spine. Prominent endplate osteophyte formation Soft tissues: Overlying bowel gas pattern is normal. No suspicious soft tissue calcifications. Surgical clips in the right upper abdomen are again noted. Oblique images: No pars defects. IMPRESSION: Relatively stable appearance of moderate levoconvex scoliosis of the lumbar spine with moderate-severe multilevel spondylosis involving the thoracolumbar junction and lumbar spine. No definite pars defects identified. Dictated by: Mahin Wellington M.D. on 10/26/2020 at 17:27 Approved by: Mahin Wellington M.D. on 10/26/2020 at 17:31
--- NOTE | 2020-10-26 12:17 | DI.ECHO.S_ITS ---
[place] [facility] +---------+ : : [address] : [address] : : : : [id number] : : : : Phone: [phone]+ Echocardiogram Report + + :Name: TARAS BELCHER Study Date: 10/26/2020 Height: 64 in : :[facility] ReadingLocation: Weight: 146 lb : : Gender: Female BSA: 1.7 m2 : :: 1945 Age: 75 yrs BP: 143/80 mmHg: :Reason For Study: Edema : :Ordering Physician: ELISEO, : :MARIYA Performed By: Papa Roberson : :Referring: MARIYA GOMES : + + Interpretation Summary The ejection fraction is estimated to be 55-60%. There is mild mitral regurgitation. There is trace aortic regurgitation. There is mild tricuspid regurgitation. The right ventricular systolic pressure is estimated to be at least 38 mmHg based on an estimated right atrial pressure of 3 mm Hg. Procedure: A two-dimensional transthoracic echocardiogram with color flow and Doppler was performed. The study quality was technically adequate. There is no prior echocardiogram noted for this patient. Left Ventricle: The left ventricle is normal in size and wall thickness. Left ventricular systolic function is normal. The ejection fraction is estimated to be 55-60%. There are no focal wall motion abnormalities. Diastolic parameters suggest a pseudonormalization pattern, consistent with probable elevated filling pressures. Right Ventricle: The right ventricle is normal in size and function. Atria: Both atria are normal in size. There is no Doppler evidence for an interatrial shunt. Mitral Valve: The mitral valve leaflets appear mildly thickened, but open well. There is mild mitral regurgitation. Aortic Valve: The aortic valve is normal in structure and function. There is trace aortic regurgitation. Tricuspid Valve: The tricuspid valve is normal in structure and function. There is mild tricuspid regurgitation. The right ventricular systolic pressure is estimated to be at least 38 mmHg based on an estimated right atrial pressure of 3 mm Hg. Pulmonic Valve: The pulmonic valve is not well seen, but is grossly normal. There is mild pulmonic regurgitation. Great Vessels: The aortic root is normal size. The dimensions of the ascending aorta are normal. The IVC is of normal diameter and collapses greater than 50% with a sniff. This suggests a low right atrial pressure of 3 mm Hg. Pericardium/ Pleura There is no pericardial effusion. There is no pleural effusion. MMode/2D Measurements & Calculations LVIDd: 4.7 cm LVOT diam: 1.8 cm LVIDs: 3.2 cm Ao root diam: 2.7 cm FS: 31.7 % asc Aorta Diam: 3.1 cm IVSd: 0.83 cm LVPWd: 0.68 cm LV crane. diameter/BSA (cm/m^2): 2.7 LV sys. diameter/BSA (cm/m^2): 1.9 LA A2 area: 14.8 cm2 RA area: 9.7 cm2 LA A4 area: 21.3 cm2 IVC diam: 2.1 cm LA length (vol): 5.0 cm LA vol: 54.1 ml LA vol index: 31.6 ml/m2 RVD1 (basal): 3.1 cm TAPSE: 1.8 cm Doppler Measurements & Calculations Ao V2 max: 120.7 cm/sec LVOT Max Toan: 91.6 cm/sec Ao V2 mean: 83.9 cm/sec LV V1 max P.4 mmHg Ao max P.8 mmHg LV V1 VTI: 21.2 cm Ao mean P.1 mmHg ADAL(I,D): 2.0 cm2 Ao V2 VTI: 27.3 cm ADAL(V,D): 1.9 cm2 sev ratio: 0.78 ADAL indexed to BSA (cm^2/m^2): 1.1 MV E max toan: 99.9 cm/sec TR max toan: 295.5 cm/sec MV A max toan: 90.7 cm/sec TR max P.9 mmHg MV E/A: 1.1 PA V2 max: 85.4 cm/sec Med Peak E' Toan: 5.5 cm/sec PA V2 mean: 67.9 cm/sec E/E' med: 18.2 PA mean P.0 mmHg Lat Peak E' Toan: 7.3 cm/sec PA pr(Accel): 29.2 mmHg E/E' lat: 13.7 E/e' average: 16.0 MV dec time: 0.19 sec SV(LVOT): 53.3 ml Reading Physician:04:30 PM
== END ==
PROVIDERS: PCP Student in an Organized Health Care Education/Training Program; Referring Provider Student in an Organized Health Care Education/Training Program; Visit Provider Student in an Organized Health Care Education/Training Program
DX: M47.816 Spondylosis without myelopathy or radiculopathy, lumbar region (principal); M47.815 Spondylosis without myelopathy or radiculopathy, thoracolumbar region; I35.1 Nonrheumatic aortic (valve) insufficiency; I34.0 Nonrheumatic mitral (valve) insufficiency; I37.1 Nonrheumatic pulmonary valve insufficiency; R60.0 Localized edema; Z86.79 Personal history of other diseases of the circulatory system
CPT/HCPCS: 72110; 93306

== ENCOUNTER 2020-11-21 09:00 | Outpatient (RCR) | payer MEDICARE, OTHER, SELFPAY ==
[2019-12-27 22:30] VITALS: BMI 24.0
--- NOTE | 2020-09-18 16:34 | PT.OIE ---
Current Diagnoses Pain in left thigh (09/18/20) Difficulty in walking, not elsewhere classified (09/18/20) Abnormal posture (09/18/20) Other symptoms and signs involving the musculoskeletal system (09/18/20) Weakness (09/18/20) Past Medical History (Last Reviewed 09/06/20 @ 08:53 by Merrill Mcnair MD) Abnormal chest xray (~2010) Allergies (~1999) Cardiac arrhythmia (~2010) Chicken pox (~1949) Colon polyps (~2016) Deep vein thrombosis (~2010) Diverticular disease (~2010) Essential hypertension (~2004) GERD (gastroesophageal reflux disease) (~2004) Headache Hearing loss (~2008) Heart failure (~2010) Heart stopped beating (~2010) History of pulmonary embolism (~2010) History of respiratory disorder (~2010) Hypothyroid Infertility (~1966) Lichen planus snf current use of anticoagulant Measles (~1949) Mumps Osteopenia (~2004) Osteoporosis Paroxysmal A-fib (~2010) Pertussis (~1954) Rheumatoid arthritis Rib fractures Rubella (~1949) Scoliosis (~1954) Spondylisthesis Tenosynovitis of finger TGA (transient global amnesia) (~2014) Vision disorder Past Surgical History (Last Reviewed 09/06/20 @ 08:53 by Merrill Mcnair MD) Anesthesia Cataracts, bilateral (~2013) History of colectomy (~2010) History of dilation and curettage History of kidney surgery (~2010) History of surgery (~1966) History of tonsillectomy and adenoidectomy History of tubal ligation S/P devora (~1992) S/P exploratory laparotomy S/P partial colectomy (~2010) Strabismus Visit Care Team Role Provider Type Darin Tran MD Attending Provider Physician Primary Care Provider Referring Provider Specialty: Internal Medicine Address: [address] [place] [address], [address] [place] [address], [facility] Email: [email or web address] Physical Therapy Initial Evaluation PT-OP-A Visit Information Start: 09/18/20 11:30 Freq: Status: Active Protocol: Document 09/18/20 15:23 [facility] (Rec: 09/18/20 16:07 [facility] [id number]) Out-Patient Physical Therapy Visit Information Visit Information Visit Type Initial Evaluation Visit Note 07/09 Visit Start Time 15:23 Visit Stop Time 16:01 Total Visit Minutes 38 Visit Number 1 Number of CIVIL TECHNICIAN Visits 0 PT-OP-B Current Condition Start: 09/18/20 11:30 Freq: Status: Active Protocol: Document 09/18/20 15:23 [facility] (Rec: 09/18/20 16:07 [facility] [id number]) Current Condition History of Current Condition Onset Date 6 Weeks History of Current Condition Pt felt weak and that her legs wouldn't hold her up. Feels like legs are really wobby and it feels like she is on something uneven. She collapsed about 10 days ago. Testing was done for rheumatoid disease and all was negative. Pt reports at some point injured L HS & calf region where it hurts to bend. It gets better/worse. Pt reports 3 falls in past few weeks when stepping on RLE and now can no longer get off ground. Pt still is doing things like walking amile but slwoer than usual Works in yard very slowly to be careful of RLE for a couple hours. Pt reports LBP but if she sits down it goes away. Pt had just finished PT 1 month prior to this decline and was doing well until the end of Jun. She does not know what started this. She has had an ongoing month issue that she has been on steroid ointment & antibiotics and pathology report was benign. She takes her last dose of antibiotic today and mouth is much better . Pt reports if she sits fo rlong periords and feels really wobbly when she stands up. Treatment Goals Patient/Caregiver Goals Yard work, no falls, be able to go out on her boat in October PT-OP-C Subjective Start: 09/18/20 11:30 Freq: Status: Active Protocol: Document 09/18/20 15:23 [facility] (Rec: 09/18/20 16:07 [facility] [id number]) Patient Questionnaires Lower Extremity Functional Scale LEFS Score 42 OP-PT Pain Assessment Location LLE Pain Location Details L HS & calf Intensity 8 Scale Used Numeric (0 - 10) Description Sharp,With Movement Frequency Intermittent Pain Aggravating Factors ADL's,Stair Climbing,Bending Pain Alleviating Factors Inactivity PT-OP-D Balance Start: 09/18/20 11:30 Freq: Status: Active Protocol: Document 09/18/20 15:23 [facility] (Rec: 09/18/20 16:07 [facility] [id number]) Balance Tests Yee Balance Test Yee Balance Test Score 44 PT-OP-E Functional Tests Start: 09/18/20 11:30 Freq: Status: Active Protocol: Document 09/18/20 15:23 [facility] (Rec: 09/18/20 16:07 [facility] [id number]) Functional Tests 30 Second Sit to Stand Test Score 5 Comments [place] chair Dynamic Gait Index (DGI) Score 16 Five Times Sit to Stand Test Score 30 sec Comments [place] Functional Gait Assessment Score 12 PT-OP-F Manual Assessment Start: 09/18/20 11:30 Freq: Status: Active Protocol: Document 09/18/20 15:23 [facility] (Rec: 09/18/20 16:07 [facility] [id number]) Manual Assessments Soft Tissue Assessment Soft Tissue Mobility Assessment tightness and tenderness into lat HS & calf & ITB Joint Mobility Assessment Joint Mobility Assessment L knee ROM: 12-88 pain flex R knee ROM:12-125 PT-OP-G Mobility & Gait Start: 09/18/20 11:30 Freq: Status: Active Protocol: Document 09/18/20 15:23 [facility] (Rec: 09/18/20 16:07 [facility] [id number]) OP Gait Assessment Comments Gait Comments Inc lat leaning w/dec push off B, unstable when first standing from surfaces PT-OP-M Strength Start: 09/18/20 11:30 Freq: Status: Active Protocol: Document 09/18/20 15:23 [facility] (Rec: 09/18/20 16:07 [facility] [id number]) Hip Strength Hip Manual Muscle Testing Right Flexion (L2) 4 Good Extension (S1) 2+ Poor+ Abduction 3 Fair External Rotation 4- Good- Internal Rotation 4 Good Left Flexion (L2) 3+ Fair+ Extension (S1) 2+ Poor+ Abduction 3 Fair External Rotation 3 Fair Internal Rotation 4- Good- Knee Strength Knee Manual Muscle Testing Right Flexion (S2) 5 Normal Extension (L3) 4 Good Left Flexion (S2) 3+ Fair+ Extension (L3) 4- Good- Ankle/Foot Strength Ankle and Foot Manual Muscle Testing Left Dorsiflexion (L4) 4 Good Plantarflexion (S1) 4- Good- Right Dorsiflexion (L4) 5 Normal Plantarflexion (S1) 5 Normal Comments seated PF tested B PT-OP-T Assessment and Plan Start: 09/18/20 11:30 Freq: Status: Active Protocol: Document 09/18/20 15:23 [facility] (Rec: 09/18/20 16:07 [facility] [id number]) Physical Therapy Assessment Rehab Potential Rehabilitation Potential Good Evaluation Complexity Number of Personal Factors/Comorbidities 3 or More Number of Body Systems Impaired 4 or More Clinical Presentation at Evaluation Unstable Impairments Impairments Activity Tolerance,Balance, Functional Activities, Functional Mobility,Gait,Pain, Posture,ROM,Soft Tissue Mobility,Strength Goals pain Short Term Goal (STG) Pt will have full range of L knee without pain in order to allow greater ease of activities. STG Duration 10/27/20 [facility] Goal (LTG) Pt will be able to go up/down stairs without pain & squat down without inc thigh and calf pain. LTG Duration 11/18/20 up/down from ground Short Term Goal (STG) Pt will feel comfortable walking around her yard without fear of falling. STG Duration 10/22/20 Supervisor Laundry Goal (LTG) Pt will be able to get up/down from the ground comfortably in order to do yard work activities. LTG Duration 11/18/20 sit to stand Short Term Goal (STG) Pt will be able to do 5x sit to rigging supervisor 12 sec to show inc strength and dec risk for falls. STG Duration 10/27/20 [facility] Goal (LTG) Pt will be able to do 13 sit to stands in 30 sec to show improved strength and dec risk for falls. LTG Duration 11/19/20 strength Short Term Goal (STG) Pt will be indep with HEP STG Duration 10/19/20 [facility] Goal (LTG) Pt will score 4+/5 for all LE motions to make pt have greater ease with getting around. LTG Duration 11/18/20 FGA Impairment DGI 16/24, FGA12/30 Short Term Goal (STG) pt will score 20 or more on DGI to show dec risk for falls . STG Duration 10/19/20 [facility] Goal (LTG) Pt will score 25/30 on FGA to show dec risk for falls and to show improved balance to be safe on her boat. LTG Duration 11/18/20 Assessment Summary Assessment Pt presents with recent onset of significant deconditioning with mult falls with one resulting in injury causing L thigh and calf pain which limits her ROM of L knee and prevents her from squatting down. Pt was last seen in clinic w/good response to PT and progression of strength and balance to baseline after an infection last summer. Pt was scoring well on balance and strength tests at the end of Dec after finishing PT. She now is shows significant risk for falls and significantly dec strength more than has been present at any time in the past. Pt would bneefit from PT to dec pain of LLE to imrpove her mobility in order to allow full participation in house and yard work, to work on LE strength and balance to dec risk for further falls as pt does plan to go back onto her boat this summer. Physical Therapy Plan Frequency and Duration Frequency of Treatment 2x/Week Duration of Treatment 2 months Plan of Care Start Date 09/18/20 Plan of Care End Date 11/18/20 Therapeutic Interventions Therapeutic Interventions Aquatic Therapy,Balance Training,Gait Training,Home Exercise Program,Joint Mobilizations,Manual Therapy, Neuromuscular Re-education, Patient/Caregiver Education, Self-Care/Home Management,Soft Tissue Mobilization,Taping, Therapeutic Activities, Therapeutic Exercises Modalities Cold Pack/Ice Massage,Electric Stimulation,Hot Packs, Ultrasound Next Visit Focus/Plan Next Note Type Treatment Note
--- NOTE | 2020-09-18 17:35 | PT.OPPOC ---
Physical, Occupational & Speech Therapy At [facility] Current Diagnoses Pain in left thigh (09/18/20) Difficulty in walking, not elsewhere classified (09/18/20) Abnormal posture (09/18/20) Other symptoms and signs involving the musculoskeletal system (09/18/20) Weakness (09/18/20) Visit Care Team Role Provider Type Darin Tran MD Attending Provider Physician Primary Care Provider Referring Provider Specialty: Internal Medicine Address: [address] [place] [address], [address], [facility] Email: [email or web address] Plan Of Care PT-OP-T Assessment and Plan Start: 09/18/20 11:30 Freq: Status: Active Protocol: Document 09/18/20 15:23 [facility] (Rec: 09/18/20 16:07 [facility] [id number]) Physical Therapy Assessment Rehab Potential Rehabilitation Potential Good Evaluation Complexity Number of Personal Factors/Comorbidities 3 or More Number of Body Systems Impaired 4 or More Clinical Presentation at Evaluation Unstable Impairments Impairments Activity Tolerance,Balance, Functional Activities, Functional Mobility,Gait,Pain, Posture,ROM,Soft Tissue Mobility,Strength Goals pain Short Term Goal (STG) Pt will have full range of L knee without pain in order to allow greater ease of activities. STG Duration 10/27/20 Alf Goal (LTG) Pt will be able to go up/down stairs without pain & squat down without inc thigh and calf pain. LTG Duration 11/18/20 up/down from ground Short Term Goal (STG) Pt will feel comfortable walking around her yard without fear of falling. STG Duration 10/22/20 Alf Goal (LTG) Pt will be able to get up/down from the ground comfortably in order to do yard work activities. LTG Duration 11/18/20 sit to stand Short Term Goal (STG) Pt will be able to do 5x sit to log chain worker 12 sec to show inc strength and dec risk for falls. STG Duration 10/27/20 Fios Line Installer Goal (LTG) Pt will be able to do 13 sit to stands in 30 sec to show improved strength and dec risk for falls. LTG Duration 11/19/20 strength Short Term Goal (STG) Pt will be indep with HEP STG Duration 10/19/20 Fios Line Installer Goal (LTG) Pt will score 4+/5 for all LE motions to make pt have greater ease with getting around. LTG Duration 11/18/20 FGA Impairment DGI , FGA1 Short Term Goal (STG) pt will score 20 or more on DGI to show dec risk for falls . STG Duration 10/19/20 Alf Goal (LTG) Pt will score 25/30 on FGA to show dec risk for falls and to show improved balance to be safe on her boat. LTG Duration 11/18/20 Assessment Summary Assessment Pt presents with recent onset of significant deconditioning with mult falls with one resulting in injury causing L thigh and calf pain which limits her ROM of L knee and prevents her from squatting down. Pt was last seen in clinic w/good response to PT and progression of strength and balance to baseline after an infection last summer. Pt was scoring well on balance and strength tests at the end of Dec after finishing PT. She now is shows significant risk for falls and significantly dec strength more than has been present at any time in the past. Pt would bneefit from PT to dec pain of LLE to imrpove her mobility in order to allow full participation in house and yard work, to work on LE strength and balance to dec risk for further falls as pt does plan to go back onto her boat this summer. Physical Therapy Plan Frequency and Duration Frequency of Treatment 2x/Week Duration of Treatment 2 months Plan of Care Start Date 09/18/20 Plan of Care End Date 11/18/20 Therapeutic Interventions Therapeutic Interventions Aquatic Therapy,Balance Training,Gait Training,Home Exercise Program,Joint Mobilizations,Manual Therapy, Neuromuscular Re-education, Patient/Caregiver Education, Self-Care/Home Management,Soft Tissue Mobilization,Taping, Therapeutic Activities, Therapeutic Exercises Modalities Cold Pack/Ice Massage,Electric Stimulation,Hot Packs, Ultrasound Next Visit Focus/Plan Next Note Type Treatment Note Plan of Care Dates Plan of Care Start Date 09/18/20 Plan of Care End Date 11/18/20 Electronically Signed by: Sylvia Christopher, PT 09/20/20 4515 Please Sign and Return: I have reviewed this Plan of Care and certify that the skilled therapy services above are required to meet the patient?s needs. Physician Signature Date Printed Name and Credentials Clinical Instructor Signature Printed Name and Credentials
--- NOTE | 2020-09-20 15:19 | PT.OTN ---
Current Diagnoses Pain in left thigh (09/20/20) Difficulty in walking, not elsewhere classified (09/20/20) Abnormal posture (09/20/20) Other symptoms and signs involving the musculoskeletal system (09/20/20) Weakness (09/20/20) Physical Therapy Treatment Note PT-OP-A Visit Information Start: 09/18/20 11:30 Freq: Status: Active Protocol: Document 09/20/20 14:38 [facility] (Rec: 09/20/20 15:19 [facility] [id number]) Out-Patient Physical Therapy Visit Information Visit Information Visit Type Treatment Note Visit Note 08/09 Visit Start Time 14:34 Visit Stop Time 15:14 Total Visit Minutes 40 Visit Number 2 Number of DRYWALL FINISHER Visits 0 PT-OP-B Current Condition Start: 09/18/20 11:30 Freq: Status: Active Protocol: Document 09/18/20 15:23 [facility] (Rec: 09/18/20 16:07 [facility] [id number]) Current Condition History of Current Condition Onset Date 6 Weeks History of Current Condition Pt felt weak and that her legs wouldn't hold her up. Feels like legs are really wobby and it feels like she is on something uneven. She collapsed about 10 days ago. Testing was done for rheumatoid disease and all was negative. Pt reports at some point injured L HS & calf region where it hurts to bend. It gets better/worse. Pt reports 3 falls in past few weeks when stepping on RLE and now can no longer get off ground. Pt still is doing things like walking amile but slwoer than usual Works in yard very slowly to be careful of RLE for a couple hours. Pt reports LBP but if she sits down it goes away. Pt had just finished PT 1 month prior to this decline and was doing well until the end of Jun. She does not know what started this. She has had an ongoing month issue that she has been on steroid ointment & antibiotics and pathology report was benign. She takes her last dose of antibiotic today and mouth is much better . Pt reports if she sits fo rlong periords and feels really wobbly when she stands up. Treatment Goals Patient/Caregiver Goals Yard work, no falls, be able to go out on her boat in October PT-OP-C Subjective Start: 09/18/20 11:30 Freq: Status: Active Protocol: Document 09/20/20 14:38 [facility] (Rec: 09/20/20 15:19 [facility] [id number]) OP-PT Subjective Patient Comments Patient Comments Pt reports she found that her legs are very wobbly at the end of the day taht she can hardly stand on them. She notes not being able to do bike at home. ITB is really tender w/rolling pin PT-OP-D Balance Start: 09/18/20 11:30 Freq: Status: Active Protocol: Document 09/18/20 15:23 [facility] (Rec: 09/18/20 16:07 [facility] [id number]) Balance Tests Yee Balance Test Yee Balance Test Score 44 PT-OP-E Functional Tests Start: 09/18/20 11:30 Freq: Status: Active Protocol: Document 09/18/20 15:23 [facility] (Rec: 09/18/20 16:07 [facility] [id number]) Functional Tests 30 Second Sit to Stand Test Score 5 Comments [place] chair Dynamic Gait Index (DGI) Score 16 Five Times Sit to Stand Test Score 30 sec Comments [place] Functional Gait Assessment Score 12 PT-OP-F Manual Assessment Start: 09/18/20 11:30 Freq: Status: Active Protocol: Document 09/18/20 15:23 [facility] (Rec: 09/18/20 16:07 [facility] [id number]) Manual Assessments Soft Tissue Assessment Soft Tissue Mobility Assessment tightness and tenderness into lat HS & calf & ITB Joint Mobility Assessment Joint Mobility Assessment L knee ROM: 12-88 pain flex R knee ROM:12-125 PT-OP-G Mobility & Gait Start: 09/18/20 11:30 Freq: Status: Active Protocol: Document 09/18/20 15:23 [facility] (Rec: 09/18/20 16:07 [facility] [id number]) OP Gait Assessment Comments Gait Comments Inc lat leaning w/dec push off B, unstable when first standing from surfaces PT-OP-M Strength Start: 09/18/20 11:30 Freq: Status: Active Protocol: Document 09/18/20 15:23 [facility] (Rec: 09/18/20 16:07 [facility] [id number]) Hip Strength Hip Manual Muscle Testing Right Flexion (L2) 4 Good Extension (S1) 2+ Poor+ Abduction 3 Fair External Rotation 4- Good- Internal Rotation 4 Good Left Flexion (L2) 3+ Fair+ Extension (S1) 2+ Poor+ Abduction 3 Fair External Rotation 3 Fair Internal Rotation 4- Good- Knee Strength Knee Manual Muscle Testing Right Flexion (S2) 5 Normal Extension (L3) 4 Good Left Flexion (S2) 3+ Fair+ Extension (L3) 4- Good- Ankle/Foot Strength Ankle and Foot Manual Muscle Testing Left Dorsiflexion (L4) 4 Good Plantarflexion (S1) 4- Good- Right Dorsiflexion (L4) 5 Normal Plantarflexion (S1) 5 Normal Comments seated PF tested B PT-OP-Q Treatments Start: 09/18/20 11:30 Freq: Status: Active Protocol: Document 09/20/20 14:38 [facility] (Rec: 09/20/20 15:19 [facility] [id number]) Cardio Equipment Recumbent Stepper (Sci-Fit) Duration (Minutes) 6 Resistance 4 Seat Position 10 Therapeutic Exercises Supine Exercises SLR Supine Exercise Name core focus Side bilateral Reps/Minutes 12 bridge Side bilateral Reps/Minutes 10x5 sec Sidelying Exercises abd Side bilateral Reps/Minutes 15 Comments cueing to keep hips aligned, keep knee straight. ER Side bilateral Reps/Minutes 15 Comments focus on not rolling Manual Therapy Treatment Soft Tissue Mobilization HS Body Location L HS, calf & ITB Mobilization Type Rolling,Strumming,Sustained Pressure Intensity/Depth Moderate Body Position Supine Comments w/gentle rotation & APs & knee ext/flex PT-OP-T Assessment and Plan Start: 09/18/20 11:30 Freq: Status: Active Protocol: Document 09/20/20 14:38 [facility] (Rec: 09/20/20 15:19 [facility] [id number]) Physical Therapy Assessment Goals pain Short Term Goal (STG) Pt will have full range of L knee without pain in order to allow greater ease of activities. STG Duration 10/27/20 Rail Specialist Goal (LTG) Pt will be able to go up/down stairs without pain & squat down without inc thigh and calf pain. LTG Duration 11/18/20 up/down from ground Short Term Goal (STG) Pt will feel comfortable walking around her yard without fear of falling. STG Duration 10/22/20 Rail Specialist Goal (LTG) Pt will be able to get up/down from the ground comfortably in order to do yard work activities. LTG Duration 11/18/20 sit to stand Short Term Goal (STG) Pt will be able to do 5x sit to product development engineer 12 sec to show inc strength and dec risk for falls. STG Duration 10/27/20 Senior Care Goal (LTG) Pt will be able to do 13 sit to stands in 30 sec to show improved strength and dec risk for falls. LTG Duration 11/19/20 strength Short Term Goal (STG) Pt will be indep with HEP STG Duration 10/19/20 Rail Specialist Goal (LTG) Pt will score 4+/5 for all LE motions to make pt have greater ease with getting around. LTG Duration 11/18/20 FGA Impairment DGI 16/24, FGA12/30 Short Term Goal (STG) pt will score 20 or more on DGI to show dec risk for falls . STG Duration 10/19/20 Senior Care Goal (LTG) Pt will score 25/30 on FGA to show dec risk for falls and to show improved balance to be safe on her boat. LTG Duration 11/18/20 Assessment Summary Assessment Pt did well exercises with only some inc pain with s/l exercises. She did well with manual thearpy and had imrpoved knee flex and easier sit to stand afterwards. Physical Therapy Plan Frequency and Duration Frequency of Treatment 2x/Week Duration of Treatment 2 months Plan of Care Start Date 09/18/20 Plan of Care End Date 11/18/20 Next Visit Focus/Plan Next Note Type Treatment Note Next Visit Plan review HEP, cont to work on balance & manual for L knee ROM w/o leg jolly
--- NOTE | 2020-09-27 13:48 | PT.OTN ---
Current Diagnoses Pain in left thigh (09/27/20) Difficulty in walking, not elsewhere classified (09/27/20) Abnormal posture (09/27/20) Other symptoms and signs involving the musculoskeletal system (09/27/20) Weakness (09/27/20) Physical Therapy Treatment Note PT-OP-A Visit Information Start: 09/18/20 11:30 Freq: Status: Active Protocol: Document 09/27/20 13:03 [facility] (Rec: 09/27/20 13:48 [facility] [id number]) Out-Patient Physical Therapy Visit Information Visit Information Visit Type Treatment Note Visit Note 09/06 Visit Start Time 13:00 Visit Stop Time 03:00 Total Visit Minutes 43 Visit Number 3 Number of ASSEMBLY CLEANER Visits 0 PT-OP-B Current Condition Start: 09/18/20 11:30 Freq: Status: Active Protocol: Document 09/18/20 15:23 [facility] (Rec: 09/18/20 16:07 [facility] [id number]) Current Condition History of Current Condition Onset Date 6 Weeks History of Current Condition Pt felt weak and that her legs wouldn't hold her up. Feels like legs are really wobby and it feels like she is on something uneven. She collapsed about 10 days ago. Testing was done for rheumatoid disease and all was negative. Pt reports at some point injured L HS & calf region where it hurts to bend. It gets better/worse. Pt reports 3 falls in past few weeks when stepping on RLE and now can no longer get off ground. Pt still is doing things like walking amile but slwoer than usual Works in yard very slowly to be careful of RLE for a couple hours. Pt reports LBP but if she sits down it goes away. Pt had just finished PT 1 month prior to this decline and was doing well until the end of Jun. She does not know what started this. She has had an ongoing month issue that she has been on steroid ointment & antibiotics and pathology report was benign. She takes her last dose of antibiotic today and mouth is much better . Pt reports if she sits fo rlong periords and feels really wobbly when she stands up. Treatment Goals Patient/Caregiver Goals Yard work, no falls, be able to go out on her boat in October PT-OP-C Subjective Start: 09/18/20 11:30 Freq: Status: Active Protocol: Document 09/27/20 13:03 [facility] (Rec: 09/27/20 13:48 [facility] [id number]) OP-PT Subjective Patient Comments Patient Comments Pt was able to walk up legs with hands to stand up yesterday after doing exercises. Notes L leg does not like to go out to the side like when getting out of car. PT-OP-D Balance Start: 09/18/20 11:30 Freq: Status: Active Protocol: Document 09/18/20 15:23 [facility] (Rec: 09/18/20 16:07 [facility] [id number]) Balance Tests Yee Balance Test Yee Balance Test Score 44 PT-OP-E Functional Tests Start: 09/18/20 11:30 Freq: Status: Active Protocol: Document 09/18/20 15:23 [facility] (Rec: 09/18/20 16:07 [facility] [id number]) Functional Tests 30 Second Sit to Stand Test Score 5 Comments coeymans hollow chair Dynamic Gait Index (DGI) Score 16 Five Times Sit to Stand Test Score 30 sec Comments coeymans hollow Functional Gait Assessment Score 12 PT-OP-F Manual Assessment Start: 09/18/20 11:30 Freq: Status: Active Protocol: Document 09/18/20 15:23 [facility] (Rec: 09/18/20 16:07 [facility] [id number]) Manual Assessments Soft Tissue Assessment Soft Tissue Mobility Assessment tightness and tenderness into lat HS & calf & ITB Joint Mobility Assessment Joint Mobility Assessment L knee ROM: 12-88 pain flex R knee ROM:12-125 PT-OP-G Mobility & Gait Start: 09/18/20 11:30 Freq: Status: Active Protocol: Document 09/18/20 15:23 [facility] (Rec: 09/18/20 16:07 [facility] [id number]) OP Gait Assessment Comments Gait Comments Inc lat leaning w/dec push off B, unstable when first standing from surfaces PT-OP-M Strength Start: 09/18/20 11:30 Freq: Status: Active Protocol: Document 09/18/20 15:23 [facility] (Rec: 09/18/20 16:07 [facility] [id number]) Hip Strength Hip Manual Muscle Testing Right Flexion (L2) 4 Good Extension (S1) 2+ Poor+ Abduction 3 Fair External Rotation 4- Good- Internal Rotation 4 Good Left Flexion (L2) 3+ Fair+ Extension (S1) 2+ Poor+ Abduction 3 Fair External Rotation 3 Fair Internal Rotation 4- Good- Knee Strength Knee Manual Muscle Testing Right Flexion (S2) 5 Normal Extension (L3) 4 Good Left Flexion (S2) 3+ Fair+ Extension (L3) 4- Good- Ankle/Foot Strength Ankle and Foot Manual Muscle Testing Left Dorsiflexion (L4) 4 Good Plantarflexion (S1) 4- Good- Right Dorsiflexion (L4) 5 Normal Plantarflexion (S1) 5 Normal Comments seated PF tested B PT-OP-Q Treatments Start: 09/18/20 11:30 Freq: Status: Active Protocol: Document 09/27/20 13:03 [facility] (Rec: 09/27/20 13:48 [facility] [id number]) Cardio Equipment Recumbent Stepper (Sci-Fit) Duration (Minutes) 6 Resistance 6 Seat Position 10 Gym Equipment Shuttle Recovery Bilateral Squats Details cueing to have feet apart and avoid knees knocking Resistance 62 Shuttle Recovery Platform Stable Reps/Time 2x15 Therapeutic Exercises Supine Exercises oneil test Supine Exercise Name stretch Side left Reps/Minutes 30 sec SLR Supine Exercise Name core focus Side left Reps/Minutes 12 hip flex Supine Exercise Name diagonal hip flex isometric Side left Reps/Minutes 30 sec Sidelying Exercises abd Side left Reps/Minutes 10 Comments cueing to keep hips aligned, keep knee straight. ER Side left Reps/Minutes 10 Comments focus on not rolling Manual Therapy Treatment Soft Tissue Mobilization iliacus Body Location L Mobilization Type Sustained Pressure glutes Body Location R Mobilization Type Sustained Pressure,Trigger Point Release Intensity/Depth Moderate Body Position Prone QL, paraspinals, ES Body Location B Mobilization Type Rolling,Sustained Pressure Intensity/Depth Moderate Body Position Prone Joint Mobilizations hip Joint ER FM Neuro Re-Education Treatment Other Activities core facilition Details chop pattern w/L flex, add, ER PT-OP-T Assessment and Plan Start: 09/18/20 11:30 Freq: Status: Active Protocol: Document 09/27/20 13:03 [facility] (Rec: 09/27/20 13:48 [facility] [id number]) Physical Therapy Assessment Goals pain Short Term Goal (STG) Pt will have full range of L knee without pain in order to allow greater ease of activities. STG Duration 10/27/20 Roof Promenade Tile Setter Goal (LTG) Pt will be able to go up/down stairs without pain & squat down without inc thigh and calf pain. LTG Duration 11/18/20 up/down from ground Short Term Goal (STG) Pt will feel comfortable walking around her yard without fear of falling. STG Duration 10/22/20 [facility] Goal (LTG) Pt will be able to get up/down from the ground comfortably in order to do yard work activities. LTG Duration 11/18/20 sit to stand Short Term Goal (STG) Pt will be able to do 5x sit to hem inspector 12 sec to show inc strength and dec risk for falls. STG Duration 10/27/20 [facility] Goal (LTG) Pt will be able to do 13 sit to stands in 30 sec to show improved strength and dec risk for falls. LTG Duration 11/19/20 strength Short Term Goal (STG) Pt will be indep with HEP STG Duration 10/19/20 Roof Promenade Tile Setter Goal (LTG) Pt will score 4+/5 for all LE motions to make pt have greater ease with getting around. LTG Duration 11/18/20 FGA Impairment DGI 16/24, FGA12/30 Short Term Goal (STG) pt will score 20 or more on DGI to show dec risk for falls . STG Duration 10/19/20 Roof Promenade Tile Setter Goal (LTG) Pt will score 25/30 on FGA to show dec risk for falls and to show improved balance to be safe on her boat. LTG Duration 11/18/20 Assessment Summary Assessment Pt had improved gait mechancis after treatment w/improved WB into LLE and improved steadiness and reported feeling better. She was also roxann to do hip flex further Physical Therapy Plan Frequency and Duration Frequency of Treatment 2x/Week Duration of Treatment 2 months Plan of Care Start Date 09/18/20 Plan of Care End Date 11/18/20 Next Visit Focus/Plan Next Note Type Treatment Note Next Visit Plan review HEP, cont to work on balance & manual for L knee ROM & hip ROM w/o leg pian, manual to LB to dec pain
--- NOTE | 2020-09-29 15:49 | PT.OTN ---
Current Diagnoses Pain in left thigh (09/29/20) Difficulty in walking, not elsewhere classified (09/29/20) Abnormal posture (09/29/20) Other symptoms and signs involving the musculoskeletal system (09/29/20) Weakness (09/29/20) Physical Therapy Treatment Note PT-OP-A Visit Information Start: 09/18/20 11:30 Freq: Status: Active Protocol: Document 09/29/20 11:16 [facility] (Rec: 09/29/20 12:00 [facility] [id number]) Out-Patient Physical Therapy Visit Information Visit Information Visit Type Treatment Note Visit Note 10/07 Visit Start Time 11:13 Visit Stop Time 11:55 Total Visit Minutes 42 Visit Number 4 Number of SIGNALER Visits 1 PT-OP-B Current Condition Start: 09/18/20 11:30 Freq: Status: Active Protocol: Document 09/18/20 15:23 [facility] (Rec: 09/18/20 16:07 [facility] [id number]) Current Condition History of Current Condition Onset Date 6 Weeks History of Current Condition Pt felt weak and that her legs wouldn't hold her up. Feels like legs are really wobby and it feels like she is on something uneven. She collapsed about 10 days ago. Testing was done for rheumatoid disease and all was negative. Pt reports at some point injured L HS & calf region where it hurts to bend. It gets better/worse. Pt reports 3 falls in past few weeks when stepping on RLE and now can no longer get off ground. Pt still is doing things like walking amile but slwoer than usual Works in yard very slowly to be careful of RLE for a couple hours. Pt reports LBP but if she sits down it goes away. Pt had just finished PT 1 month prior to this decline and was doing well until the end of Jun. She does not know what started this. She has had an ongoing month issue that she has been on steroid ointment & antibiotics and pathology report was benign. She takes her last dose of antibiotic today and mouth is much better . Pt reports if she sits fo rlong periords and feels really wobbly when she stands up. Treatment Goals Patient/Caregiver Goals Yard work, no falls, be able to go out on her boat in October PT-OP-C Subjective Start: 09/18/20 11:30 Freq: Status: Active Protocol: Document 09/29/20 11:16 [facility] (Rec: 09/29/20 12:00 [facility] [id number]) OP-PT Subjective Patient Comments Patient Comments Pt has not had any recent falls. PT-OP-D Balance Start: 09/18/20 11:30 Freq: Status: Active Protocol: Document 09/18/20 15:23 [facility] (Rec: 09/18/20 16:07 [facility] [id number]) Balance Tests Yee Balance Test Yee Balance Test Score 44 PT-OP-E Functional Tests Start: 09/18/20 11:30 Freq: Status: Active Protocol: Document 09/18/20 15:23 [facility] (Rec: 09/18/20 16:07 [facility] [id number]) Functional Tests 30 Second Sit to Stand Test Score 5 Comments mortons gap chair Dynamic Gait Index (DGI) Score 16 Five Times Sit to Stand Test Score 30 sec Comments mortons gap Functional Gait Assessment Score 12 PT-OP-F Manual Assessment Start: 09/18/20 11:30 Freq: Status: Active Protocol: Document 09/18/20 15:23 [facility] (Rec: 09/18/20 16:07 [facility] [id number]) Manual Assessments Soft Tissue Assessment Soft Tissue Mobility Assessment tightness and tenderness into lat HS & calf & ITB Joint Mobility Assessment Joint Mobility Assessment L knee ROM: 12-88 pain flex R knee ROM:12-125 PT-OP-G Mobility & Gait Start: 09/18/20 11:30 Freq: Status: Active Protocol: Document 09/18/20 15:23 [facility] (Rec: 09/18/20 16:07 [facility] [id number]) OP Gait Assessment Comments Gait Comments Inc lat leaning w/dec push off B, unstable when first standing from surfaces PT-OP-M Strength Start: 09/18/20 11:30 Freq: Status: Active Protocol: Document 09/18/20 15:23 [facility] (Rec: 09/18/20 16:07 [facility] [id number]) Hip Strength Hip Manual Muscle Testing Right Flexion (L2) 4 Good Extension (S1) 2+ Poor+ Abduction 3 Fair External Rotation 4- Good- Internal Rotation 4 Good Left Flexion (L2) 3+ Fair+ Extension (S1) 2+ Poor+ Abduction 3 Fair External Rotation 3 Fair Internal Rotation 4- Good- Knee Strength Knee Manual Muscle Testing Right Flexion (S2) 5 Normal Extension (L3) 4 Good Left Flexion (S2) 3+ Fair+ Extension (L3) 4- Good- Ankle/Foot Strength Ankle and Foot Manual Muscle Testing Left Dorsiflexion (L4) 4 Good Plantarflexion (S1) 4- Good- Right Dorsiflexion (L4) 5 Normal Plantarflexion (S1) 5 Normal Comments seated PF tested B PT-OP-Q Treatments Start: 09/18/20 11:30 Freq: Status: Active Protocol: Document 09/29/20 11:16 [facility] (Rec: 09/29/20 12:00 [facility] [id number]) Cardio Equipment Recumbent Stepper (Sci-Fit) Duration (Minutes) 6 Resistance 6 Seat Position 10 Gym Equipment Shuttle Recovery Bilateral Squats Details cueing to have feet apart and avoid knees knocking Resistance 62#, 75# Shuttle Recovery Platform Stable Reps/Time 3x10 Therapeutic Exercises Supine Exercises oneil test Supine Exercise Name stretch Side left Reps/Minutes 30 sec SLR Supine Exercise Name core focus Side left Reps/Minutes 12 bridge Side bilateral Reps/Minutes 10x5 sec Sidelying Exercises abd Side bilateral Reps/Minutes 10 Comments cueing to keep hips aligned, keep knee straight. ER Side bilateral Reps/Minutes 10 Comments focus on not rolling Standing Exercises lunges Standing Exercise Name fwd step, lateral step (mini lunge) Side bilateral Reps/Minutes 8x ea Therapeutic Activity Therapeutic Activity Floor Transfers Reps/Minutes 5 min Comments working on pushing through LLE to stand and balancing upon standing Gait Training Gait Activity Stairs Description 4 & 6 gym steps Treatment Focus pushing through LLE Comments pt has single step to enter home and feels she struggles to push up off LLE Manual Therapy Treatment Soft Tissue Mobilization glutes Body Location R Mobilization Type Sustained Pressure,Trigger Point Release Intensity/Depth Moderate Body Position Prone PT-OP-T Assessment and Plan Start: 09/18/20 11:30 Freq: Status: Active Protocol: Document 09/29/20 11:16 [facility] (Rec: 09/29/20 12:00 [facility] [id number]) Physical Therapy Assessment Goals pain Short Term Goal (STG) Pt will have full range of L knee without pain in order to allow greater ease of activities. STG Duration 10/27/20 Snf Goal (LTG) Pt will be able to go up/down stairs without pain & squat down without inc thigh and calf pain. LTG Duration 11/18/20 up/down from ground Short Term Goal (STG) Pt will feel comfortable walking around her yard without fear of falling. STG Duration 10/22/20 Rn Charge Goal (LTG) Pt will be able to get up/down from the ground comfortably in order to do yard work activities. LTG Duration 11/18/20 sit to stand Short Term Goal (STG) Pt will be able to do 5x sit to hat liner 12 sec to show inc strength and dec risk for falls. STG Duration 10/27/20 Rn Charge Goal (LTG) Pt will be able to do 13 sit to stands in 30 sec to show improved strength and dec risk for falls. LTG Duration 11/19/20 strength Short Term Goal (STG) Pt will be indep with HEP STG Duration 10/19/20 Rn Charge Goal (LTG) Pt will score 4+/5 for all LE motions to make pt have greater ease with getting around. LTG Duration 11/18/20 FGA Impairment DGI 16/24, FGA12/30 Short Term Goal (STG) pt will score 20 or more on DGI to show dec risk for falls . STG Duration 10/19/20 Rn Charge Goal (LTG) Pt will score 25/30 on FGA to show dec risk for falls and to show improved balance to be safe on her boat. LTG Duration 11/18/20 Assessment Summary Assessment Pt was able to increase weight on shuttle recovery from 62- 75# showing her strength is improving toward her baseline. Pt thinks she was doing over 100# during previous therapy sessions last year. During soft tissue work, pt was complaining of pain along anterior L akins. Upon evaluation, pt has minor swelling on anterior medial akins and yellow/green older bruise she states is from falling on LLE early this year . Worked on getting up from floor with pt having some trouble balancing due to her weight being anteriorly shifted with pt unable to walk her hands back toward her feet to stand up. She was able to stand up 1 time without using a chair for support, but lost her balance upon standing needing Mod A to keep from falling. Worked on stairs with pt being able to step reciprocally with bilateral rails, but states she feels her LLE is weak and may give out on her. Overall, pt is improving with every visit, but she is still off of her baseline from therapy sessions at the end of 2019. Physical Therapy Plan Frequency and Duration Frequency of Treatment 2x/Week Duration of Treatment 2 months Plan of Care Start Date 09/18/20 Plan of Care End Date 11/18/20 Therapeutic Interventions Therapeutic Interventions Aquatic Therapy,Balance Training,Gait Training,Home Exercise Program,Joint Mobilizations,Manual Therapy, Neuromuscular Re-education, Patient/Caregiver Education, Self-Care/Home Management,Soft Tissue Mobilization,Taping, Therapeutic Activities, Therapeutic Exercises Modalities Cold Pack/Ice Massage,Electric Stimulation,Hot Packs, Ultrasound Next Visit Focus/Plan Next Note Type Treatment Note Next Visit Plan review HEP, cont to work on balance & manual for L knee ROM & hip ROM w/o leg pian, manual to LB to dec pain
--- NOTE | 2020-10-02 17:48 | PT.OTN ---
Current Diagnoses Pain in left thigh (10/02/20) Difficulty in walking, not elsewhere classified (10/02/20) Abnormal posture (10/02/20) Other symptoms and signs involving the musculoskeletal system (10/02/20) Weakness (10/02/20) Physical Therapy Treatment Note PT-OP-A Visit Information Start: 09/18/20 11:30 Freq: Status: Active Protocol: Document 10/02/20 16:53 MA (Rec: 10/02/20 17:48 MA [id number]) Out-Patient Physical Therapy Visit Information Visit Information Visit Type Treatment Note Visit Note 11/06 Visit Start Time 16:50 Visit Stop Time 17:30 Total Visit Minutes 40 Visit Number 5 Number of ONLINE ADVERTISING DIRECTOR Visits 2 PT-OP-B Current Condition Start: 09/18/20 11:30 Freq: Status: Active Protocol: Document 09/18/20 15:23 [facility] (Rec: 09/18/20 16:07 [facility] [id number]) Current Condition History of Current Condition Onset Date 6 Weeks History of Current Condition Pt felt weak and that her legs wouldn't hold her up. Feels like legs are really wobby and it feels like she is on something uneven. She collapsed about 10 days ago. Testing was done for rheumatoid disease and all was negative. Pt reports at some point injured L HS & calf region where it hurts to bend. It gets better/worse. Pt reports 3 falls in past few weeks when stepping on RLE and now can no longer get off ground. Pt still is doing things like walking amile but slwoer than usual Works in yard very slowly to be careful of RLE for a couple hours. Pt reports LBP but if she sits down it goes away. Pt had just finished PT 1 month prior to this decline and was doing well until the end of Jun. She does not know what started this. She has had an ongoing month issue that she has been on steroid ointment & antibiotics and pathology report was benign. She takes her last dose of antibiotic today and mouth is much better . Pt reports if she sits fo rlong periords and feels really wobbly when she stands up. Treatment Goals Patient/Caregiver Goals Yard work, no falls, be able to go out on her boat in October PT-OP-C Subjective Start: 09/18/20 11:30 Freq: Status: Active Protocol: Document 10/02/20 16:53 MA (Rec: 10/02/20 17:48 MA [id number]) OP-PT Subjective Patient Comments Patient Comments I am not doing well today. I am really unbalanced today and keep veering to the left. Last night I got down to the floor to do exercises and I couldn't get up, even using the couch. My had t ohelp pull me up PT-OP-D Balance Start: 09/18/20 11:30 Freq: Status: Active Protocol: Document 09/18/20 15:23 [facility] (Rec: 09/18/20 16:07 [facility] [id number]) Balance Tests Yee Balance Test Yee Balance Test Score 44 PT-OP-E Functional Tests Start: 09/18/20 11:30 Freq: Status: Active Protocol: Document 09/18/20 15:23 [facility] (Rec: 09/18/20 16:07 [facility] [id number]) Functional Tests 30 Second Sit to Stand Test Score 5 Comments [place] chair Dynamic Gait Index (DGI) Score 16 Five Times Sit to Stand Test Score 30 sec Comments [place] Functional Gait Assessment Score 12 PT-OP-F Manual Assessment Start: 09/18/20 11:30 Freq: Status: Active Protocol: Document 09/18/20 15:23 [facility] (Rec: 09/18/20 16:07 [facility] [id number]) Manual Assessments Soft Tissue Assessment Soft Tissue Mobility Assessment tightness and tenderness into lat HS & calf & ITB Joint Mobility Assessment Joint Mobility Assessment L knee ROM: 12-88 pain flex R knee ROM:12-125 PT-OP-G Mobility & Gait Start: 09/18/20 11:30 Freq: Status: Active Protocol: Document 09/18/20 15:23 [facility] (Rec: 09/18/20 16:07 [facility] [id number]) OP Gait Assessment Comments Gait Comments Inc lat leaning w/dec push off B, unstable when first standing from surfaces PT-OP-M Strength Start: 09/18/20 11:30 Freq: Status: Active Protocol: Document 09/18/20 15:23 [facility] (Rec: 09/18/20 16:07 [facility] [id number]) Hip Strength Hip Manual Muscle Testing Right Flexion (L2) 4 Good Extension (S1) 2+ Poor+ Abduction 3 Fair External Rotation 4- Good- Internal Rotation 4 Good Left Flexion (L2) 3+ Fair+ Extension (S1) 2+ Poor+ Abduction 3 Fair External Rotation 3 Fair Internal Rotation 4- Good- Knee Strength Knee Manual Muscle Testing Right Flexion (S2) 5 Normal Extension (L3) 4 Good Left Flexion (S2) 3+ Fair+ Extension (L3) 4- Good- Ankle/Foot Strength Ankle and Foot Manual Muscle Testing Left Dorsiflexion (L4) 4 Good Plantarflexion (S1) 4- Good- Right Dorsiflexion (L4) 5 Normal Plantarflexion (S1) 5 Normal Comments seated PF tested B PT-OP-Q Treatments Start: 09/18/20 11:30 Freq: Status: Active Protocol: Document 10/02/20 16:53 MA (Rec: 10/02/20 17:48 MA [id number]) Cardio Equipment Recumbent Stepper (Sci-Fit) Duration (Minutes) 6 Resistance 6 Seat Position 10 Gym Equipment Shuttle Recovery Bilateral Squats Details cueing to have feet apart and avoid knees knocking Resistance 75# Shuttle Recovery Platform Stable Reps/Time 2x15 Gait Training Gait Activity Walking Level of Assistance SBA-CGA Distance/Duration 300 feet Treatment Focus avoiding scissoring gait Manual Therapy Treatment Soft Tissue Mobilization HS Body Location Frank HS, L ITB Mobilization Type Rolling,Strumming,Sustained Pressure Intensity/Depth Moderate Body Position Supine Comments Superficial to moderate pressure PT-OP-T Assessment and Plan Start: 09/18/20 11:30 Freq: Status: Active Protocol: Document 10/02/20 16:53 MA (Rec: 10/02/20 17:48 MA [id number]) Physical Therapy Assessment Goals pain Short Term Goal (STG) Pt will have full range of L knee without pain in order to allow greater ease of activities. STG Duration 10/27/20 Longterm Goal (LTG) Pt will be able to go up/down stairs without pain & squat down without inc thigh and calf pain. LTG Duration 11/18/20 up/down from ground Short Term Goal (STG) Pt will feel comfortable walking around her yard without fear of falling. STG Duration 10/22/20 Manager Of Care Goal (LTG) Pt will be able to get up/down from the ground comfortably in order to do yard work activities. LTG Duration 11/18/20 sit to stand Short Term Goal (STG) Pt will be able to do 5x sit to drainage inspector 12 sec to show inc strength and dec risk for falls. STG Duration 10/27/20 Longterm Goal (LTG) Pt will be able to do 13 sit to stands in 30 sec to show improved strength and dec risk for falls. LTG Duration 11/19/20 strength Short Term Goal (STG) Pt will be indep with HEP STG Duration 10/19/20 Manager Of Care Goal (LTG) Pt will score 4+/5 for all LE motions to make pt have greater ease with getting around. LTG Duration 11/18/20 FGA Impairment DGI 1624, FGA12/30 Short Term Goal (STG) pt will score 20 or more on DGI to show dec risk for falls . STG Duration 10/19/20 Longterm Goal (LTG) Pt will score 25/30 on FGA to show dec risk for falls and to show improved balance to be safe on her boat. LTG Duration 11/18/20 Assessment Summary Assessment Sidra arrived to session with poor balance today, needing Min A upon standing and showing a scissoring gait pattern. She c/o significant pain along posterior LLE. Pt is very tender to palpation and can only tolerate mild to occassional moderate pressure. She is most tender along R medial and L lateral HS but feels some relief after STM. Physical Therapy Plan Frequency and Duration Frequency of Treatment 2x/Week Duration of Treatment 2 months Plan of Care Start Date 09/18/20 Plan of Care End Date 11/18/20 Therapeutic Interventions Therapeutic Interventions Aquatic Therapy,Balance Training,Gait Training,Home Exercise Program,Joint Mobilizations,Manual Therapy, Neuromuscular Re-education, Patient/Caregiver Education, Self-Care/Home Management,Soft Tissue Mobilization,Taping, Therapeutic Activities, Therapeutic Exercises Modalities Cold Pack/Ice Massage,Electric Stimulation,Hot Packs, Ultrasound Next Visit Focus/Plan Next Note Type Treatment Note Next Visit Plan review HEP, cont to work on balance & manual for L knee ROM & hip ROM w/o leg pian, manual to LB to dec pain
--- NOTE | 2020-10-04 12:04 | PT.OTN ---
Current Diagnoses Pain in left thigh (10/04/20) Difficulty in walking, not elsewhere classified (10/04/20) Abnormal posture (10/04/20) Other symptoms and signs involving the musculoskeletal system (10/04/20) Weakness (10/04/20) Physical Therapy Treatment Note PT-OP-A Visit Information Start: 09/18/20 11:30 Freq: Status: Active Protocol: Document 10/04/20 10:41 [facility] (Rec: 10/04/20 12:04 [facility] [id number]) Out-Patient Physical Therapy Visit Information Visit Information Visit Type Treatment Note Visit Note 12/07 Visit Start Time 10:38 Visit Stop Time 11:16 Total Visit Minutes 38 Visit Number 6 Number of ASSIGNMENT AGENT Visits 0 PT-OP-B Current Condition Start: 09/18/20 11:30 Freq: Status: Active Protocol: Document 09/18/20 15:23 [facility] (Rec: 09/18/20 16:07 [facility] [id number]) Current Condition History of Current Condition Onset Date 6 Weeks History of Current Condition Pt felt weak and that her legs wouldn't hold her up. Feels like legs are really wobby and it feels like she is on something uneven. She collapsed about 10 days ago. Testing was done for rheumatoid disease and all was negative. Pt reports at some point injured L HS & calf region where it hurts to bend. It gets better/worse. Pt reports 3 falls in past few weeks when stepping on RLE and now can no longer get off ground. Pt still is doing things like walking amile but slwoer than usual Works in yard very slowly to be careful of RLE for a couple hours. Pt reports LBP but if she sits down it goes away. Pt had just finished PT 1 month prior to this decline and was doing well until the end of Jun. She does not know what started this. She has had an ongoing month issue that she has been on steroid ointment & antibiotics and pathology report was benign. She takes her last dose of antibiotic today and mouth is much better . Pt reports if she sits fo rlong periords and feels really wobbly when she stands up. Treatment Goals Patient/Caregiver Goals Yard work, no falls, be able to go out on her boat in October PT-OP-C Subjective Start: 09/18/20 11:30 Freq: Status: Active Protocol: Document 10/04/20 10:41 [facility] (Rec: 10/04/20 12:04 [facility] [id number]) OP-PT Subjective Patient Comments Patient Comments Pt reports Ams are better than PMs. Notes pain in L leg is pretty good. She used the rolling pin last night and had less tender spots. PT-OP-D Balance Start: 09/18/20 11:30 Freq: Status: Active Protocol: Document 09/18/20 15:23 [facility] (Rec: 09/18/20 16:07 [facility] [id number]) Balance Tests Yee Balance Test Yee Balance Test Score 44 PT-OP-E Functional Tests Start: 09/18/20 11:30 Freq: Status: Active Protocol: Document 09/18/20 15:23 [facility] (Rec: 09/18/20 16:07 [facility] [id number]) Functional Tests 30 Second Sit to Stand Test Score 5 Comments graford chair Dynamic Gait Index (DGI) Score 16 Five Times Sit to Stand Test Score 30 sec Comments graford Functional Gait Assessment Score 12 PT-OP-F Manual Assessment Start: 09/18/20 11:30 Freq: Status: Active Protocol: Document 09/18/20 15:23 [facility] (Rec: 09/18/20 16:07 [facility] [id number]) Manual Assessments Soft Tissue Assessment Soft Tissue Mobility Assessment tightness and tenderness into lat HS & calf & ITB Joint Mobility Assessment Joint Mobility Assessment L knee ROM: 12-88 pain flex R knee ROM:12-125 PT-OP-G Mobility & Gait Start: 09/18/20 11:30 Freq: Status: Active Protocol: Document 09/18/20 15:23 [facility] (Rec: 09/18/20 16:07 [facility] [id number]) OP Gait Assessment Comments Gait Comments Inc lat leaning w/dec push off B, unstable when first standing from surfaces PT-OP-M Strength Start: 09/18/20 11:30 Freq: Status: Active Protocol: Document 09/18/20 15:23 [facility] (Rec: 09/18/20 16:07 [facility] [id number]) Hip Strength Hip Manual Muscle Testing Right Flexion (L2) 4 Good Extension (S1) 2+ Poor+ Abduction 3 Fair External Rotation 4- Good- Internal Rotation 4 Good Left Flexion (L2) 3+ Fair+ Extension (S1) 2+ Poor+ Abduction 3 Fair External Rotation 3 Fair Internal Rotation 4- Good- Knee Strength Knee Manual Muscle Testing Right Flexion (S2) 5 Normal Extension (L3) 4 Good Left Flexion (S2) 3+ Fair+ Extension (L3) 4- Good- Ankle/Foot Strength Ankle and Foot Manual Muscle Testing Left Dorsiflexion (L4) 4 Good Plantarflexion (S1) 4- Good- Right Dorsiflexion (L4) 5 Normal Plantarflexion (S1) 5 Normal Comments seated PF tested B PT-OP-Q Treatments Start: 09/18/20 11:30 Freq: Status: Active Protocol: Document 10/04/20 10:41 [facility] (Rec: 10/04/20 12:04 [facility] [id number]) Cardio Equipment Recumbent Elliptical (Coursera) Duration (Minutes) 6 Resistance 6 Seat Position 7 Gym Equipment Shuttle Recovery Bilateral Squats Details cueing to have feet apart and avoid knees knocking Resistance 87# Shuttle Recovery Platform Stable Reps/Time 2x15 Therapeutic Exercises Standing Exercises resisted walk Standing Exercise Name fwd/back Side bilateral Equipment Used yellow tband Reps/Minutes 20ftx2 side step Side bilateral Resistance yellow band Reps/Minutes 20ftx2 Manual Therapy Treatment Soft Tissue Mobilization HS Body Location L HS, calf Mobilization Type Rolling,Strumming,Sustained Pressure Intensity/Depth Moderate Body Position Supine Comments Superficial to moderate pressure Joint Mobilizations tibfem Joint pa dm L tibfib Joint L Direction PA FM patellofem Joint L Direction sup/inf Neuro Re-Education Treatment Balance Activities EC Comments WBOS, NBOS, STAGGERED STANCE B Stepping Details hurdles Comments 6x fwd, 2x sideways B PT-OP-T Assessment and Plan Start: 09/18/20 11:30 Freq: Status: Active Protocol: Document 10/04/20 10:41 [facility] (Rec: 10/04/20 12:04 [facility] [id number]) Physical Therapy Assessment Goals pain Short Term Goal (STG) Pt will have full range of L knee without pain in order to allow greater ease of activities. STG Duration 10/27/20 Senior Living Goal (LTG) Pt will be able to go up/down stairs without pain & squat down without inc thigh and calf pain. LTG Duration 11/18/20 up/down from ground Short Term Goal (STG) Pt will feel comfortable walking around her yard without fear of falling. STG Duration 10/22/20 Senior Living Goal (LTG) Pt will be able to get up/down from the ground comfortably in order to do yard work activities. LTG Duration 11/18/20 sit to stand Short Term Goal (STG) Pt will be able to do 5x sit to installations inspector 12 sec to show inc strength and dec risk for falls. STG Duration 10/27/20 Senior Living Goal (LTG) Pt will be able to do 13 sit to stands in 30 sec to show improved strength and dec risk for falls. LTG Duration 11/19/20 strength Short Term Goal (STG) Pt will be indep with HEP STG Duration 10/19/20 Senior Living Goal (LTG) Pt will score 4+/5 for all LE motions to make pt have greater ease with getting around. LTG Duration 11/18/20 FGA Impairment DGI 16/24, FGA12/30 Short Term Goal (STG) pt will score 20 or more on DGI to show dec risk for falls . STG Duration 10/19/20 Software Test Technician Goal (LTG) Pt will score 25/30 on FGA to show dec risk for falls and to show improved balance to be safe on her boat. LTG Duration 11/18/20 Assessment Summary Assessment Pt showed more balance when presenting to session today and still did well at end of session despite some fatigue with exercise. Seh is slowly gaining further L knee flex but is still signiricantly limited. Physical Therapy Plan Frequency and Duration Frequency of Treatment 2x/Week Duration of Treatment 2 months Plan of Care Start Date 09/18/20 Plan of Care End Date 11/18/20 Next Visit Focus/Plan Next Note Type Treatment Note Next Visit Plan cont to work on balance & manual for L knee ROM & hip ROM w/o leg pian, manual to LB to dec pain
--- NOTE | 2020-10-09 12:49 | PT.OTN ---
Current Diagnoses Pain in left thigh (10/09/20) Difficulty in walking, not elsewhere classified (10/09/20) Abnormal posture (10/09/20) Other symptoms and signs involving the musculoskeletal system (10/09/20) Weakness (10/09/20) Physical Therapy Treatment Note PT-OP-A Visit Information Start: 09/18/20 11:30 Freq: Status: Active Protocol: Document 10/09/20 12:06 MA (Rec: 10/09/20 12:48 MA [id number]) Out-Patient Physical Therapy Visit Information Visit Information Visit Type Treatment Note Visit Note 01/06 Visit Start Time 12:00 Visit Stop Time 12:45 Total Visit Minutes 45 Visit Number 7 Number of PERLITE GRINDER Visits 1 PT-OP-B Current Condition Start: 09/18/20 11:30 Freq: Status: Active Protocol: Document 09/18/20 15:23 LR (Rec: 09/18/20 16:07 [facility] [id number]) Current Condition History of Current Condition Onset Date 6 Weeks History of Current Condition Pt felt weak and that her legs wouldn't hold her up. Feels like legs are really wobby and it feels like she is on something uneven. She collapsed about 10 days ago. Testing was done for rheumatoid disease and all was negative. Pt reports at some point injured L HS & calf region where it hurts to bend. It gets better/worse. Pt reports 3 falls in past few weeks when stepping on RLE and now can no longer get off ground. Pt still is doing things like walking amile but slwoer than usual Works in yard very slowly to be careful of RLE for a couple hours. Pt reports LBP but if she sits down it goes away. Pt had just finished PT 1 month prior to this decline and was doing well until the end of Jun. She does not know what started this. She has had an ongoing month issue that she has been on steroid ointment & antibiotics and pathology report was benign. She takes her last dose of antibiotic today and mouth is much better . Pt reports if she sits fo rlong periords and feels really wobbly when she stands up. Treatment Goals Patient/Caregiver Goals Yard work, no falls, be able to go out on her boat in October PT-OP-C Subjective Start: 09/18/20 11:30 Freq: Status: Active Protocol: Document 10/09/20 12:06 MA (Rec: 10/09/20 12:48 MA [id number]) OP-PT Subjective Patient Comments Patient Comments Pt reports the dr thinks she has signs of congestive heart failure but they messed up her visiting nurse appt this morning and she didn't get to see dr. Will see visiting nurse November 08 and see bariatric physician tomorrow. PT-OP-D Balance Start: 09/18/20 11:30 Freq: Status: Active Protocol: Document 09/18/20 15:23 [facility] (Rec: 09/18/20 16:07 [facility] [id number]) Balance Tests Yee Balance Test Yee Balance Test Score 44 PT-OP-E Functional Tests Start: 09/18/20 11:30 Freq: Status: Active Protocol: Document 09/18/20 15:23 [facility] (Rec: 09/18/20 16:07 [facility] [id number]) Functional Tests 30 Second Sit to Stand Test Score 5 Comments [place] chair Dynamic Gait Index (DGI) Score 16 Five Times Sit to Stand Test Score 30 sec Comments [place] Functional Gait Assessment Score 12 PT-OP-F Manual Assessment Start: 09/18/20 11:30 Freq: Status: Active Protocol: Document 09/18/20 15:23 [facility] (Rec: 09/18/20 16:07 [facility] [id number]) Manual Assessments Soft Tissue Assessment Soft Tissue Mobility Assessment tightness and tenderness into lat HS & calf & ITB Joint Mobility Assessment Joint Mobility Assessment L knee ROM: 12-88 pain flex R knee ROM:12-125 PT-OP-G Mobility & Gait Start: 09/18/20 11:30 Freq: Status: Active Protocol: Document 09/18/20 15:23 [facility] (Rec: 09/18/20 16:07 [facility] [id number]) OP Gait Assessment Comments Gait Comments Inc lat leaning w/dec push off B, unstable when first standing from surfaces PT-OP-M Strength Start: 09/18/20 11:30 Freq: Status: Active Protocol: Document 09/18/20 15:23 [facility] (Rec: 09/18/20 16:07 [facility] [id number]) Hip Strength Hip Manual Muscle Testing Right Flexion (L2) 4 Good Extension (S1) 2+ Poor+ Abduction 3 Fair External Rotation 4- Good- Internal Rotation 4 Good Left Flexion (L2) 3+ Fair+ Extension (S1) 2+ Poor+ Abduction 3 Fair External Rotation 3 Fair Internal Rotation 4- Good- Knee Strength Knee Manual Muscle Testing Right Flexion (S2) 5 Normal Extension (L3) 4 Good Left Flexion (S2) 3+ Fair+ Extension (L3) 4- Good- Ankle/Foot Strength Ankle and Foot Manual Muscle Testing Left Dorsiflexion (L4) 4 Good Plantarflexion (S1) 4- Good- Right Dorsiflexion (L4) 5 Normal Plantarflexion (S1) 5 Normal Comments seated PF tested B PT-OP-Q Treatments Start: 09/18/20 11:30 Freq: Status: Active Protocol: Document 10/09/20 12:06 MA (Rec: 10/09/20 12:48 MA [id number]) Cardio Equipment Recumbent Elliptical ([employer]) Duration (Minutes) 4 Resistance 6 Seat Position 8 Other changed seat position due to pt stating her knee wont bend today Therapeutic Exercises Standing Exercises sit to stand Reps/Minutes 5x Comments 21 sec without UE support resisted walk Standing Exercise Name fwd/back, lateral Side bilateral Equipment Used yellow tband Reps/Minutes 20ftx2 Manual Therapy Treatment Soft Tissue Mobilization HS Body Location L HS, calf Mobilization Type Rolling,Strumming,Sustained Pressure Intensity/Depth Moderate Body Position Supine Comments Superficial to moderate pressure Neuro Re-Education Treatment Balance Activities EC Comments WBOS, NBOS, STAGGERED STANCE B WBOS NBOS blue foam Stepping Details hurdles Comments 6x fwd, 2x sideways B PT-OP-T Assessment and Plan Start: 09/18/20 11:30 Freq: Status: Active Protocol: Document 10/09/20 12:06 MA (Rec: 10/09/20 12:48 MA [id number]) Physical Therapy Assessment Goals pain Short Term Goal (STG) Pt will have full range of L knee without pain in order to allow greater ease of activities. STG Duration 10/27/20 [facility] Goal (LTG) Pt will be able to go up/down stairs without pain & squat down without inc thigh and calf pain. LTG Duration 11/18/20 up/down from ground Short Term Goal (STG) Pt will feel comfortable walking around her yard without fear of falling. STG Duration 10/22/20 [facility] Goal (LTG) Pt will be able to get up/down from the ground comfortably in order to do yard work activities. LTG Duration 11/18/20 sit to stand Short Term Goal (STG) Pt will be able to do 5x sit to driver retraining instructor 12 sec to show inc strength and dec risk for falls. STG Duration 10/27/20 Envelope Fold Operator Goal (LTG) Pt will be able to do 13 sit to stands in 30 sec to show improved strength and dec risk for falls. LTG Duration 11/19/20 strength Short Term Goal (STG) Pt will be indep with HEP STG Duration 10/19/20 [facility] Goal (LTG) Pt will score 4+/5 for all LE motions to make pt have greater ease with getting around. LTG Duration 11/18/20 FGA Impairment DGI 16/24, FGA12/30 Short Term Goal (STG) pt will score 20 or more on DGI to show dec risk for falls . STG Duration 10/19/20 Envelope Fold Operator Goal (LTG) Pt will score 25/30 on FGA to show dec risk for falls and to show improved balance to be safe on her boat. LTG Duration 11/18/20 Assessment Summary Assessment Pt is improving balance and stability overall. She is able to walk back to session without losing balance and stepping out to side today. During staggered stance, pt does better with LLE in front. She needed frequent rest breaks today due to SOB. has discussed that she may have CHF but she was unable to see visiting nurse this morning due to scheduling error. Physical Therapy Plan Frequency and Duration Frequency of Treatment 2x/Week Duration of Treatment 2 months Plan of Care Start Date 09/18/20 Plan of Care End Date 11/18/20 Therapeutic Interventions Therapeutic Interventions Aquatic Therapy,Balance Training,Gait Training,Home Exercise Program,Joint Mobilizations,Manual Therapy, Neuromuscular Re-education, Patient/Caregiver Education, Self-Care/Home Management,Soft Tissue Mobilization,Taping, Therapeutic Activities, Therapeutic Exercises Modalities Cold Pack/Ice Massage,Electric Stimulation,Hot Packs, Ultrasound Next Visit Focus/Plan Next Note Type Treatment Note Next Visit Plan cont to work on balance & manual for L knee ROM & hip ROM w/o leg pian, manual to LB to dec pain
--- NOTE | 2020-10-11 10:27 | PT.OTN ---
Current Diagnoses Pain in left thigh (10/11/20) Difficulty in walking, not elsewhere classified (10/11/20) Abnormal posture (10/11/20) Other symptoms and signs involving the musculoskeletal system (10/11/20) Weakness (10/11/20) Physical Therapy Treatment Note PT-OP-A Visit Information Start: 09/18/20 11:30 Freq: Status: Active Protocol: Document 10/11/20 09:29 MA (Rec: 10/11/20 10:22 MA [id number]) Out-Patient Physical Therapy Visit Information Visit Information Visit Type Treatment Note Visit Note 02/06 Visit Start Time 09:25 Visit Stop Time 10:18 Total Visit Minutes 53 Visit Number 8 Number of ASSOCIATE TEAM PHYSICIAN Visits 2 PT-OP-B Current Condition Start: 09/18/20 11:30 Freq: Status: Active Protocol: Document 09/18/20 15:23 LR (Rec: 09/18/20 16:07 [facility] [id number]) Current Condition History of Current Condition Onset Date 6 Weeks History of Current Condition Pt felt weak and that her legs wouldn't hold her up. Feels like legs are really wobby and it feels like she is on something uneven. She collapsed about 10 days ago. Testing was done for rheumatoid disease and all was negative. Pt reports at some point injured L HS & calf region where it hurts to bend. It gets better/worse. Pt reports 3 falls in past few weeks when stepping on RLE and now can no longer get off ground. Pt still is doing things like walking amile but slwoer than usual Works in yard very slowly to be careful of RLE for a couple hours. Pt reports LBP but if she sits down it goes away. Pt had just finished PT 1 month prior to this decline and was doing well until the end of Jun. She does not know what started this. She has had an ongoing month issue that she has been on steroid ointment & antibiotics and pathology report was benign. She takes her last dose of antibiotic today and mouth is much better . Pt reports if she sits fo rlong periords and feels really wobbly when she stands up. Treatment Goals Patient/Caregiver Goals Yard work, no falls, be able to go out on her boat in October PT-OP-C Subjective Start: 09/18/20 11:30 Freq: Status: Active Protocol: Document 10/11/20 09:29 MA (Rec: 10/11/20 10:22 MA [id number]) OP-PT Subjective Patient Comments Patient Comments Pt states her knee is doing much better after last PT session. Pt saw sql database developer yesterday who said she doesn't have CHF and thinks that she has a narrow foramnina that's causing her SOB; MRI ordered as well as doppler. Pt had low BP reading yesterday of 75/48 but was normal this morning. Dr is changing her BP meds due to continuing issues with alternating high/low BP. PT-OP-D Balance Start: 09/18/20 11:30 Freq: Status: Active Protocol: Document 09/18/20 15:23 [facility] (Rec: 09/18/20 16:07 [facility] [id number]) Balance Tests Yee Balance Test Yee Balance Test Score 44 PT-OP-E Functional Tests Start: 09/18/20 11:30 Freq: Status: Active Protocol: Document 09/18/20 15:23 [facility] (Rec: 09/18/20 16:07 [facility] [id number]) Functional Tests 30 Second Sit to Stand Test Score 5 Comments silver chair Dynamic Gait Index (DGI) Score 16 Five Times Sit to Stand Test Score 30 sec Comments silver Functional Gait Assessment Score 12 PT-OP-F Manual Assessment Start: 09/18/20 11:30 Freq: Status: Active Protocol: Document 09/18/20 15:23 [facility] (Rec: 09/18/20 16:07 [facility] [id number]) Manual Assessments Soft Tissue Assessment Soft Tissue Mobility Assessment tightness and tenderness into lat HS & calf & ITB Joint Mobility Assessment Joint Mobility Assessment L knee ROM: 12-88 pain flex R knee ROM:12-125 PT-OP-G Mobility & Gait Start: 09/18/20 11:30 Freq: Status: Active Protocol: Document 09/18/20 15:23 [facility] (Rec: 09/18/20 16:07 [facility] [id number]) OP Gait Assessment Comments Gait Comments Inc lat leaning w/dec push off B, unstable when first standing from surfaces PT-OP-M Strength Start: 09/18/20 11:30 Freq: Status: Active Protocol: Document 09/18/20 15:23 [facility] (Rec: 09/18/20 16:07 [facility] [id number]) Hip Strength Hip Manual Muscle Testing Right Flexion (L2) 4 Good Extension (S1) 2+ Poor+ Abduction 3 Fair External Rotation 4- Good- Internal Rotation 4 Good Left Flexion (L2) 3+ Fair+ Extension (S1) 2+ Poor+ Abduction 3 Fair External Rotation 3 Fair Internal Rotation 4- Good- Knee Strength Knee Manual Muscle Testing Right Flexion (S2) 5 Normal Extension (L3) 4 Good Left Flexion (S2) 3+ Fair+ Extension (L3) 4- Good- Ankle/Foot Strength Ankle and Foot Manual Muscle Testing Left Dorsiflexion (L4) 4 Good Plantarflexion (S1) 4- Good- Right Dorsiflexion (L4) 5 Normal Plantarflexion (S1) 5 Normal Comments seated PF tested B PT-OP-Q Treatments Start: 09/18/20 11:30 Freq: Status: Active Protocol: Document 10/11/20 09:29 MA (Rec: 10/11/20 10:22 MA [id number]) Cardio Equipment Recumbent Elliptical (meebee) Duration (Minutes) 7 Resistance 7 Seat Position 7 Gym Equipment Shuttle Balance red clips Comments fwd & side: WBOS, NBOS Therapeutic Exercises Standing Exercises sit to stand Reps/Minutes 10x Comments 31 sec without UE support Gait Training Gait Activity Walking Description outside uneven terrain; over curbs, in grass Level of Assistance SBA-CGA Distance/Duration 300 feet Treatment Focus balance uneven surfaces Manual Therapy Treatment Soft Tissue Mobilization HS Body Location Frank HS Mobilization Type Rolling,Strumming,Sustained Pressure Intensity/Depth Moderate Body Position Supine Comments Superficial to moderate pressure Neuro Re-Education Treatment Balance Activities Tandem Surface solid Reps/Duration 60 sec ea Comments 1.modified tandem 2. tandem stance PT-OP-T Assessment and Plan Start: 09/18/20 11:30 Freq: Status: Active Protocol: Document 10/11/20 09:29 MA (Rec: 10/11/20 10:22 MA [id number]) Physical Therapy Assessment Goals pain Short Term Goal (STG) Pt will have full range of L knee without pain in order to allow greater ease of activities. STG Duration 10/27/20 Telegraph Office Telephone Clerk Goal (LTG) Pt will be able to go up/down stairs without pain & squat down without inc thigh and calf pain. LTG Duration 11/18/20 up/down from ground Short Term Goal (STG) Pt will feel comfortable walking around her yard without fear of falling. STG Duration 10/22/20 [employer] Tele[employer] Clerk Goal (LTG) Pt will be able to get up/down from the ground comfortably in order to do yard work activities. LTG Duration 11/18/20 sit to stand Short Term Goal (STG) Pt will be able to do 5x sit to manager business information 12 sec to show inc strength and dec risk for falls. STG Duration 10/27/20 [employer] Tele[employer] Clerk Goal (LTG) Pt will be able to do 13 sit to stands in 30 sec to show improved strength and dec risk for falls. LTG Duration 11/19/20 strength Short Term Goal (STG) Pt will be indep with HEP STG Duration 10/19/20 [employer] Tele[employer] Goal (LTG) Pt will score 4+/5 for all LE motions to make pt have greater ease with getting around. LTG Duration 11/18/20 FGA Impairment DGI 16/24, FGA12/30 Short Term Goal (STG) pt will score 20 or more on DGI to show dec risk for falls . STG Duration 10/19/20 Half-Way Goal (LTG) Pt will score 25/30 on FGA to show dec risk for falls and to show improved balance to be safe on her boat. LTG Duration 11/18/20 Assessment Summary Assessment Pt had no SOB during today's session. She was able to walk outside on uneven terrain with SBA and was able to do the red clips on shuttle balance with CGA-Min A during NBOS. Pt 's knee is feeling much better after Friday's soft tissue work so continued HS work today with pt only having tenderness on R medial HS. Pt is showing great improvement today from previous sessions with balance and cardio endurance. She did not need any rest breaks this session and was able to increase the resistance on recumbant eliptical. Physical Therapy Plan Frequency and Duration Frequency of Treatment 2x/Week Duration of Treatment 2 months Plan of Care Start Date 09/18/20 Plan of Care End Date 11/18/20 Therapeutic Interventions Therapeutic Interventions Aquatic Therapy,Balance Training,Gait Training,Home Exercise Program,Joint Mobilizations,Manual Therapy, Neuromuscular Re-education, Patient/Caregiver Education, Self-Care/Home Management,Soft Tissue Mobilization,Taping, Therapeutic Activities, Therapeutic Exercises Modalities Cold Pack/Ice Massage,Electric Stimulation,Hot Packs, Ultrasound Next Visit Focus/Plan Next Note Type Treatment Note Next Visit Plan cont to work on balance & manual for L knee ROM & hip ROM w/o leg pian, manual to LB to dec pain
--- NOTE | 2020-10-18 09:48 | PT.OTN ---
Current Diagnoses Pain in left thigh (10/18/20) Difficulty in walking, not elsewhere classified (10/18/20) Abnormal posture (10/18/20) Other symptoms and signs involving the musculoskeletal system (10/18/20) Weakness (10/18/20) Physical Therapy Treatment Note PT-OP-A Visit Information Start: 09/18/20 11:30 Freq: Status: Active Protocol: Document 10/18/20 09:12 [facility] (Rec: 10/18/20 09:48 [facility] [id number]) Out-Patient Physical Therapy Visit Information Visit Information Visit Type Progress Note Visit Note 07/09 Visit Start Time 09:06 Visit Stop Time 09:45 Total Visit Minutes 39 Visit Number 9 Number of PASTORAL ASSISTANT Visits 0 PT-OP-B Current Condition Start: 09/18/20 11:30 Freq: Status: Active Protocol: Document 09/18/20 15:23 [facility] (Rec: 09/18/20 16:07 [facility] [id number]) Current Condition History of Current Condition Onset Date 6 Weeks History of Current Condition Pt felt weak and that her legs wouldn't hold her up. Feels like legs are really wobby and it feels like she is on something uneven. She collapsed about 10 days ago. Testing was done for rheumatoid disease and all was negative. Pt reports at some point injured L HS & calf region where it hurts to bend. It gets better/worse. Pt reports 3 falls in past few weeks when stepping on RLE and now can no longer get off ground. Pt still is doing things like walking amile but slwoer than usual Works in yard very slowly to be careful of RLE for a couple hours. Pt reports LBP but if she sits down it goes away. Pt had just finished PT 1 month prior to this decline and was doing well until the end of Jun. She does not know what started this. She has had an ongoing month issue that she has been on steroid ointment & antibiotics and pathology report was benign. She takes her last dose of antibiotic today and mouth is much better . Pt reports if she sits fo rlong periords and feels really wobbly when she stands up. Treatment Goals Patient/Caregiver Goals Yard work, no falls, be able to go out on her boat in October PT-OP-C Subjective Start: 09/18/20 11:30 Freq: Status: Active Protocol: Document 10/18/20 09:12 [facility] (Rec: 10/18/20 09:48 [facility] [id number]) OP-PT Subjective Patient Comments Patient Comments she is doing muchb elsa but progress is slow this time PT-OP-D Balance Start: 09/18/20 11:30 Freq: Status: Active Protocol: Document 09/18/20 15:23 [facility] (Rec: 09/18/20 16:07 [facility] [id number]) Balance Tests Yee Balance Test Yee Balance Test Score 44 PT-OP-E Functional Tests Start: 09/18/20 11:30 Freq: Status: Active Protocol: Document 10/18/20 09:12 [facility] (Rec: 10/18/20 09:48 [facility] [id number]) Functional Tests 30 Second Sit to Stand Test Score 10 Comments silver chair Dynamic Gait Index (DGI) Score 23 Five Times Sit to Stand Test Score 14 sec Functional Gait Assessment Score 24 PT-OP-F Manual Assessment Start: 09/18/20 11:30 Freq: Status: Active Protocol: Document 09/18/20 15:23 [facility] (Rec: 09/18/20 16:07 [facility] [id number]) Manual Assessments Soft Tissue Assessment Soft Tissue Mobility Assessment tightness and tenderness into lat HS & calf & ITB Joint Mobility Assessment Joint Mobility Assessment L knee ROM: 12-88 pain flex R knee ROM:12-125 PT-OP-G Mobility & Gait Start: 09/18/20 11:30 Freq: Status: Active Protocol: Document 09/18/20 15:23 [facility] (Rec: 09/18/20 16:07 [facility] [id number]) OP Gait Assessment Comments Gait Comments Inc lat leaning w/dec push off B, unstable when first standing from surfaces PT-OP-M Strength Start: 09/18/20 11:30 Freq: Status: Active Protocol: Document 10/18/20 09:12 [facility] (Rec: 10/18/20 09:48 [facility] [id number]) Hip Strength Hip Manual Muscle Testing Right Flexion (L2) 4 Good Extension (S1) 3+ Fair+ Abduction 3+ Fair+ External Rotation 4- Good- Internal Rotation 4+ Good+ Left Flexion (L2) 3+ Fair+ Extension (S1) 3+ Fair+ Abduction 3+ Fair+ External Rotation 4- Good- Internal Rotation 4+ Good+ Knee Strength Knee Manual Muscle Testing Right Flexion (S2) 5 Normal Extension (L3) 5 Normal Left Flexion (S2) 5 Normal Extension (L3) 4+ Good+ Ankle/Foot Strength Ankle and Foot Manual Muscle Testing Left Dorsiflexion (L4) 5 Normal Plantarflexion (S1) 5 Normal Right Dorsiflexion (L4) 5 Normal Plantarflexion (S1) 5 Normal Comments seated PF tested B PT-OP-Q Treatments Start: 09/18/20 11:30 Freq: Status: Active Protocol: Document 10/18/20 09:12 [facility] (Rec: 10/18/20 09:48 [facility] [id number]) Cardio Equipment Recumbent Elliptical ([employer]) Duration (Minutes) 7 Resistance 7 Seat Position 7 Manual Therapy Treatment Soft Tissue Mobilization glutes Body Location L Mobilization Type Sustained Pressure,Trigger Point Release Intensity/Depth Moderate Body Position Sidelying PT-OP-T Assessment and Plan Start: 09/18/20 11:30 Freq: Status: Active Protocol: Document 10/18/20 09:12 [facility] (Rec: 10/18/20 09:48 [facility] [id number]) Physical Therapy Assessment Goals pain Short Term Goal (STG) Pt will have full range of L knee without pain in order to allow greater ease of activities. 10/18-improved to 100 STG Duration 10/27/20 Punch Machine Hand Goal (LTG) Pt will be able to go up/down stairs without pain & squat down without inc thigh and calf pain. LTG Duration achieved up/down from ground Short Term Goal (STG) Pt will feel comfortable walking around her yard without fear of falling. STG Duration achieved Punch Machine Hand Goal (LTG) Pt will be able to get up/down from the ground comfortably in order to do yard work activities. LTG Duration 11/18/20 sit to stand Short Term Goal (STG) Pt will be able to do 5x sit to distribution a class lineman 12 sec to show inc strength and dec risk for falls. 10/18-improved 14 sec STG Duration 10/27/20 Punch Machine Hand Goal (LTG) Pt will be able to do 13 sit to stands in 30 sec to show improved strength and dec risk for falls. 10/18-improved LTG Duration 11/19/20 strength Short Term Goal (STG) Pt will be indep with HEP STG Duration 10/19/20 Detention Goal (LTG) Pt will score 4+/5 for all LE motions to make pt have greater ease with getting around. LTG Duration 11/18/20 FGA Impairment DGI 16, FGA1/ Short Term Goal (STG) pt will score 20 or more on DGI to show dec risk for falls . STG Duration achieved Detention Goal (LTG) Pt will score 25/30 on FGA to show dec risk for falls and to show improved balance to be safe on her boat. 10/18- significnat improvement LTG Duration 11/18/20 Assessment Summary Assessment Pt showed much more improvement with balance and overall strength since IE. SHe is making good progress with therapy and is much safer with gait and mobility. SHe still shows weakness and would beneift from cont skilled PT to work on her deficits and dec pain Physical Therapy Plan Frequency and Duration Frequency of Treatment 2x/Week Duration of Treatment 2 months Plan of Care Start Date 09/18/20 Plan of Care End Date 11/18/20 Next Visit Focus/Plan Next Note Type Treatment Note Next Visit Plan cont to work on balance & manual for L knee ROM & hip ROM w/o leg pian, manual to LB to dec pain
--- NOTE | 2020-10-20 12:19 | PT.OTN ---
Current Diagnoses Pain in left thigh (10/20/20) Difficulty in walking, not elsewhere classified (10/20/20) Abnormal posture (10/20/20) Other symptoms and signs involving the musculoskeletal system (10/20/20) Weakness (10/20/20) Physical Therapy Treatment Note PT-OP-A Visit Information Start: 09/18/20 11:30 Freq: Status: Active Protocol: Document 10/20/20 10:35 [facility] (Rec: 10/20/20 11:17 [facility] [id number]) Out-Patient Physical Therapy Visit Information Visit Information Visit Type Treatment Note Visit Note 08/09 Visit Start Time 10:30 Visit Stop Time 11:10 Total Visit Minutes 40 Visit Number 10 Number of FRAUD MANAGER Visits 1 PT-OP-B Current Condition Start: 09/18/20 11:30 Freq: Status: Active Protocol: Document 09/18/20 15:23 [facility] (Rec: 09/18/20 16:07 [facility] [id number]) Current Condition History of Current Condition Onset Date 6 Weeks History of Current Condition Pt felt weak and that her legs wouldn't hold her up. Feels like legs are really wobby and it feels like she is on something uneven. She collapsed about 10 days ago. Testing was done for rheumatoid disease and all was negative. Pt reports at some point injured L HS & calf region where it hurts to bend. It gets better/worse. Pt reports 3 falls in past few weeks when stepping on RLE and now can no longer get off ground. Pt still is doing things like walking amile but slwoer than usual Works in yard very slowly to be careful of RLE for a couple hours. Pt reports LBP but if she sits down it goes away. Pt had just finished PT 1 month prior to this decline and was doing well until the end of Jun. She does not know what started this. She has had an ongoing month issue that she has been on steroid ointment & antibiotics and pathology report was benign. She takes her last dose of antibiotic today and mouth is much better . Pt reports if she sits fo rlong periords and feels really wobbly when she stands up. Treatment Goals Patient/Caregiver Goals Yard work, no falls, be able to go out on her boat in October PT-OP-C Subjective Start: 09/18/20 11:30 Freq: Status: Active Protocol: Document 10/20/20 10:35 [facility] (Rec: 10/20/20 11:17 [facility] [id number]) OP-PT Subjective Patient Comments Patient Comments Pt states she has had no BP issues in the past 9 days. She had an MRI done but won't have the results for another week. PT-OP-D Balance Start: 09/18/20 11:30 Freq: Status: Active Protocol: Document 09/18/20 15:23 [facility] (Rec: 09/18/20 16:07 [facility] [id number]) Balance Tests Yee Balance Test Yee Balance Test Score 44 PT-OP-E Functional Tests Start: 09/18/20 11:30 Freq: Status: Active Protocol: Document 10/18/20 09:12 [facility] (Rec: 10/18/20 09:48 [facility] [id number]) Functional Tests 30 Second Sit to Stand Test Score 10 Comments silver chair Dynamic Gait Index (DGI) Score 23 Five Times Sit to Stand Test Score 14 sec Functional Gait Assessment Score 24 PT-OP-F Manual Assessment Start: 09/18/20 11:30 Freq: Status: Active Protocol: Document 09/18/20 15:23 [facility] (Rec: 09/18/20 16:07 [facility] [id number]) Manual Assessments Soft Tissue Assessment Soft Tissue Mobility Assessment tightness and tenderness into lat HS & calf & ITB Joint Mobility Assessment Joint Mobility Assessment L knee ROM: 12-88 pain flex R knee ROM:12-125 PT-OP-G Mobility & Gait Start: 09/18/20 11:30 Freq: Status: Active Protocol: Document 09/18/20 15:23 [facility] (Rec: 09/18/20 16:07 [facility] [id number]) OP Gait Assessment Comments Gait Comments Inc lat leaning w/dec push off B, unstable when first standing from surfaces PT-OP-M Strength Start: 09/18/20 11:30 Freq: Status: Active Protocol: Document 10/18/20 09:12 [facility] (Rec: 10/18/20 09:48 [facility] [id number]) Hip Strength Hip Manual Muscle Testing Right Flexion (L2) 4 Good Extension (S1) 3+ Fair+ Abduction 3+ Fair+ External Rotation 4- Good- Internal Rotation 4+ Good+ Left Flexion (L2) 3+ Fair+ Extension (S1) 3+ Fair+ Abduction 3+ Fair+ External Rotation 4- Good- Internal Rotation 4+ Good+ Knee Strength Knee Manual Muscle Testing Right Flexion (S2) 5 Normal Extension (L3) 5 Normal Left Flexion (S2) 5 Normal Extension (L3) 4+ Good+ Ankle/Foot Strength Ankle and Foot Manual Muscle Testing Left Dorsiflexion (L4) 5 Normal Plantarflexion (S1) 5 Normal Right Dorsiflexion (L4) 5 Normal Plantarflexion (S1) 5 Normal Comments seated PF tested B PT-OP-Q Treatments Start: 09/18/20 11:30 Freq: Status: Active Protocol: Document 10/20/20 10:35 [facility] (Rec: 10/20/20 11:17 [facility] [id number]) Cardio Equipment Recumbent Elliptical ([employer]) Duration (Minutes) 7 Resistance 7 Seat Position 7 Gym Equipment Cable Column (Body Solid) Leg curl/ext Resistance 30# Reps/Time 2x6 Therapeutic Exercises Standing Exercises sit to stand Reps/Minutes 10x Manual Therapy Treatment Soft Tissue Mobilization ITB Body Location L ITB Mobilization Type Rolling,Sustained Pressure, Trigger Point Release Intensity/Depth Moderate Body Position Supine PT-OP-T Assessment and Plan Start: 09/18/20 11:30 Freq: Status: Active Protocol: Document 10/20/20 10:35 [facility] (Rec: 10/20/20 11:17 [facility] [id number]) Physical Therapy Assessment Goals pain Short Term Goal (STG) Pt will have full range of L knee without pain in order to allow greater ease of activities. 10/18-improved to 100 STG Duration 10/27/20 Correction Goal (LTG) Pt will be able to go up/down stairs without pain & squat down without inc thigh and calf pain. LTG Duration achieved up/down from ground Short Term Goal (STG) Pt will feel comfortable walking around her yard without fear of falling. STG Duration achieved Correction Goal (LTG) Pt will be able to get up/down from the ground comfortably in order to do yard work activities. LTG Duration 11/18/20 sit to stand Short Term Goal (STG) Pt will be able to do 5x sit to internet researcher 12 sec to show inc strength and dec risk for falls. 10/18-improved 14 sec STG Duration 10/27/20 Biofuels Processing Technician Goal (LTG) Pt will be able to do 13 sit to stands in 30 sec to show improved strength and dec risk for falls. 10/18-improved LTG Duration 11/19/20 strength Short Term Goal (STG) Pt will be indep with HEP STG Duration 10/19/20 Biofuels Processing Technician Goal (LTG) Pt will score 4+/5 for all LE motions to make pt have greater ease with getting around. LTG Duration 11/18/20 FGA Impairment DGI 16/24, FGA12/30 Short Term Goal (STG) pt will score 20 or more on DGI to show dec risk for falls . STG Duration achieved Correction Goal (LTG) Pt will score 25/30 on FGA to show dec risk for falls and to show improved balance to be safe on her boat. 10/18- significnat improvement LTG Duration 11/18/20 Assessment Summary Assessment Pt arrived with some pain along lateral L leg. Worked STM to ITB with pt feeling less pain after along her lateral jt line. Used the body column for HS curl and quad knee extension with pt able to complete 2x6 reps using 30#. Pt has recumbant bike and would like to start with that next session in therapy to see how she feels and if she has enough ROM to use hers at home . She would also like to continue using leg press. Both were in use today but will assess pt on recumbant bike next session. Physical Therapy Plan Frequency and Duration Frequency of Treatment 2x/Week Duration of Treatment 2 months Plan of Care Start Date 09/18/20 Plan of Care End Date 11/18/20 Therapeutic Interventions Therapeutic Interventions Aquatic Therapy,Balance Training,Gait Training,Home Exercise Program,Joint Mobilizations,Manual Therapy, Neuromuscular Re-education, Patient/Caregiver Education, Self-Care/Home Management,Soft Tissue Mobilization,Taping, Therapeutic Activities, Therapeutic Exercises Modalities Cold Pack/Ice Massage,Electric Stimulation,Hot Packs, Ultrasound Next Visit Focus/Plan Next Note Type Treatment Note Next Visit Plan start with recumbant bike and leg press next session cont to work on balance & manual for L knee ROM & hip ROM w/o leg pian, manual to LB to dec pain
--- NOTE | 2020-10-23 08:12 | PT.OTN ---
Current Diagnoses Pain in left thigh (10/23/20) Difficulty in walking, not elsewhere classified (10/23/20) Abnormal posture (10/23/20) Other symptoms and signs involving the musculoskeletal system (10/23/20) Weakness (10/23/20) Physical Therapy Treatment Note PT-OP-A Visit Information Start: 09/18/20 11:30 Freq: Status: Active Protocol: Document 10/23/20 07:33 [facility] (Rec: 10/23/20 08:12 [facility] [id number]) Out-Patient Physical Therapy Visit Information Visit Information Visit Type Treatment Note Visit Note 09/06 Visit Start Time 07:30 Visit Stop Time 08:10 Total Visit Minutes 40 Visit Number 11 Number of ARMATURE WINDER REPAIRER Visits 0 PT-OP-B Current Condition Start: 09/18/20 11:30 Freq: Status: Active Protocol: Document 09/18/20 15:23 [facility] (Rec: 09/18/20 16:07 [facility] [id number]) Current Condition History of Current Condition Onset Date 6 Weeks History of Current Condition Pt felt weak and that her legs wouldn't hold her up. Feels like legs are really wobby and it feels like she is on something uneven. She collapsed about 10 days ago. Testing was done for rheumatoid disease and all was negative. Pt reports at some point injured L HS & calf region where it hurts to bend. It gets better/worse. Pt reports 3 falls in past few weeks when stepping on RLE and now can no longer get off ground. Pt still is doing things like walking amile but slwoer than usual Works in yard very slowly to be careful of RLE for a couple hours. Pt reports LBP but if she sits down it goes away. Pt had just finished PT 1 month prior to this decline and was doing well until the end of Jun. She does not know what started this. She has had an ongoing month issue that she has been on steroid ointment & antibiotics and pathology report was benign. She takes her last dose of antibiotic today and mouth is much better . Pt reports if she sits fo rlong periords and feels really wobbly when she stands up. Treatment Goals Patient/Caregiver Goals Yard work, no falls, be able to go out on her boat in October PT-OP-C Subjective Start: 09/18/20 11:30 Freq: Status: Active Protocol: Document 10/23/20 07:33 [facility] (Rec: 10/23/20 08:12 [facility] [id number]) OP-PT Subjective Patient Comments Patient Comments Pt reprots balance has been feeling pretty good. Pt reprots strength is not improving as quickly as she hoped. She still runs out of steam. She did find that when seh feels tired and weak and she takes her BP, it has dropped. Dr. Tran changed BP meds to nighttime only which helped. Notes she had one instance yesterday where leg felt tight but otherwise doing better. PT-OP-D Balance Start: 09/18/20 11:30 Freq: Status: Active Protocol: Document 09/18/20 15:23 [facility] (Rec: 09/18/20 16:07 [facility] [id number]) Balance Tests Yee Balance Test Yee Balance Test Score 44 PT-OP-E Functional Tests Start: 09/18/20 11:30 Freq: Status: Active Protocol: Document 10/18/20 09:12 [facility] (Rec: 10/18/20 09:48 [facility] [id number]) Functional Tests 30 Second Sit to Stand Test Score 10 Comments silver chair Dynamic Gait Index (DGI) Score 23 Five Times Sit to Stand Test Score 14 sec Functional Gait Assessment Score 24 PT-OP-F Manual Assessment Start: 09/18/20 11:30 Freq: Status: Active Protocol: Document 09/18/20 15:23 [facility] (Rec: 09/18/20 16:07 [facility] [id number]) Manual Assessments Soft Tissue Assessment Soft Tissue Mobility Assessment tightness and tenderness into lat HS & calf & ITB Joint Mobility Assessment Joint Mobility Assessment L knee ROM: 12-88 pain flex R knee ROM:12-125 PT-OP-G Mobility & Gait Start: 09/18/20 11:30 Freq: Status: Active Protocol: Document 09/18/20 15:23 [facility] (Rec: 09/18/20 16:07 [facility] [id number]) OP Gait Assessment Comments Gait Comments Inc lat leaning w/dec push off B, unstable when first standing from surfaces PT-OP-M Strength Start: 09/18/20 11:30 Freq: Status: Active Protocol: Document 10/18/20 09:12 [facility] (Rec: 10/18/20 09:48 [facility] [id number]) Hip Strength Hip Manual Muscle Testing Right Flexion (L2) 4 Good Extension (S1) 3+ Fair+ Abduction 3+ Fair+ External Rotation 4- Good- Internal Rotation 4+ Good+ Left Flexion (L2) 3+ Fair+ Extension (S1) 3+ Fair+ Abduction 3+ Fair+ External Rotation 4- Good- Internal Rotation 4+ Good+ Knee Strength Knee Manual Muscle Testing Right Flexion (S2) 5 Normal Extension (L3) 5 Normal Left Flexion (S2) 5 Normal Extension (L3) 4+ Good+ Ankle/Foot Strength Ankle and Foot Manual Muscle Testing Left Dorsiflexion (L4) 5 Normal Plantarflexion (S1) 5 Normal Right Dorsiflexion (L4) 5 Normal Plantarflexion (S1) 5 Normal Comments seated PF tested B PT-OP-Q Treatments Start: 09/18/20 11:30 Freq: Status: Active Protocol: Document 10/23/20 07:33 [facility] (Rec: 10/23/20 08:12 [facility] [id number]) Cardio Equipment Recumbent Stepper (Sci-Fit) Duration (Minutes) 6 Resistance 6 Seat Position 10 Gym Equipment Shuttle Recovery Unilateral Squats Details Bilaterally Resistance 50# Shuttle Recovery Platform Stable Reps/Time 2x15 Bilateral Squats Details cueing to have feet apart and avoid knees knocking Resistance 100# Shuttle Recovery Platform Unstable Reps/Time 2x15 Shuttle Balance red clips Comments fwd & side: WBOS, NBOS fwd: staggered B Therapeutic Exercises Standing Exercises lunges Standing Exercise Name fwd mini Side bilateral Equipment Used rail prn Reps/Minutes 10x ea Manual Therapy Treatment Soft Tissue Mobilization ITB Body Location L ITB Mobilization Type Rolling,Sustained Pressure, Trigger Point Release Intensity/Depth Moderate Body Position Sidelying HS Body Location L Mobilization Type Rolling,Strumming,Sustained Pressure Intensity/Depth Moderate Body Position Sidelying Comments w/knee ext Neuro Re-Education Treatment Balance Activities Stepping Details hurdles Equipment 2# on ea ankle Comments over fwd x8, over side x1 B PT-OP-T Assessment and Plan Start: 09/18/20 11:30 Freq: Status: Active Protocol: Document 10/23/20 07:33 [facility] (Rec: 10/23/20 08:12 [facility] [id number]) Physical Therapy Assessment Goals pain Short Term Goal (STG) Pt will have full range of L knee without pain in order to allow greater ease of activities. 10/18-improved to 100 STG Duration 10/27/20 Usp Goal (LTG) Pt will be able to go up/down stairs without pain & squat down without inc thigh and calf pain. LTG Duration achieved up/down from ground Short Term Goal (STG) Pt will feel comfortable walking around her yard without fear of falling. STG Duration achieved Compounding Scaler Goal (LTG) Pt will be able to get up/down from the ground comfortably in order to do yard work activities. LTG Duration 11/18/20 sit to stand Short Term Goal (STG) Pt will be able to do 5x sit to director of strategic marketing 12 sec to show inc strength and dec risk for falls. 10/18-improved 14 sec STG Duration 10/27/20 Compounding Scaler Goal (LTG) Pt will be able to do 13 sit to stands in 30 sec to show improved strength and dec risk for falls. 10/18-improved LTG Duration 11/19/20 strength Short Term Goal (STG) Pt will be indep with HEP STG Duration 10/19/20 Compounding Scaler Goal (LTG) Pt will score 4+/5 for all LE motions to make pt have greater ease with getting around. LTG Duration 11/18/20 FGA Impairment DGI 16/24, FGA12/30 Short Term Goal (STG) pt will score 20 or more on DGI to show dec risk for falls . STG Duration achieved Usp Goal (LTG) Pt will score 25/30 on FGA to show dec risk for falls and to show improved balance to be safe on her boat. 10/18- significnat improvement LTG Duration 11/18/20 Assessment Summary Assessment Pt did well with resistance today and was able to inc w/DL leg press wt and do uneven surface. She did well on balance board but did struggle w/staggereds tance position. Physical Therapy Plan Frequency and Duration Frequency of Treatment 2x/Week Duration of Treatment 2 months Plan of Care Start Date 09/18/20 Plan of Care End Date 11/18/20 Next Visit Focus/Plan Next Note Type Treatment Note Next Visit Plan cont to work on balance & manual for L knee ROM & hip ROM w/o leg pian, manual to LB to dec pain
--- NOTE | 2020-10-25 09:02 | PT.OTN ---
Current Diagnoses Pain in left thigh (10/25/20) Difficulty in walking, not elsewhere classified (10/25/20) Abnormal posture (10/25/20) Other symptoms and signs involving the musculoskeletal system (10/25/20) Weakness (10/25/20) Physical Therapy Treatment Note PT-OP-A Visit Information Start: 09/18/20 11:30 Freq: Status: Active Protocol: Document 10/25/20 08:35 [facility] (Rec: 10/25/20 09:01 [facility] [id number]) Out-Patient Physical Therapy Visit Information Visit Information Visit Type Treatment Note Visit Note 10/07 Visit Start Time 08:20 Visit Stop Time 08:59 Total Visit Minutes 39 Visit Number 12 Number of YOUTH COUNSELOR Visits 0 PT-OP-B Current Condition Start: 09/18/20 11:30 Freq: Status: Active Protocol: Document 09/18/20 15:23 [facility] (Rec: 09/18/20 16:07 [facility] [id number]) Current Condition History of Current Condition Onset Date 6 Weeks History of Current Condition Pt felt weak and that her legs wouldn't hold her up. Feels like legs are really wobby and it feels like she is on something uneven. She collapsed about 10 days ago. Testing was done for rheumatoid disease and all was negative. Pt reports at some point injured L HS & calf region where it hurts to bend. It gets better/worse. Pt reports 3 falls in past few weeks when stepping on RLE and now can no longer get off ground. Pt still is doing things like walking amile but slwoer than usual Works in yard very slowly to be careful of RLE for a couple hours. Pt reports LBP but if she sits down it goes away. Pt had just finished PT 1 month prior to this decline and was doing well until the end of Jun. She does not know what started this. She has had an ongoing month issue that she has been on steroid ointment & antibiotics and pathology report was benign. She takes her last dose of antibiotic today and mouth is much better . Pt reports if she sits fo rlong periords and feels really wobbly when she stands up. Treatment Goals Patient/Caregiver Goals Yard work, no falls, be able to go out on her boat in October PT-OP-C Subjective Start: 09/18/20 11:30 Freq: Status: Active Protocol: Document 10/25/20 08:35 [facility] (Rec: 10/25/20 09:01 [facility] [id number]) OP-PT Subjective Patient Comments Patient Comments Pt reports MRI results came back and Dr. Tran wants her to see Dr. Sharma d/t degengeration found in lumbar MRI PT-OP-D Balance Start: 09/18/20 11:30 Freq: Status: Active Protocol: Document 09/18/20 15:23 [facility] (Rec: 09/18/20 16:07 [facility] [id number]) Balance Tests Yee Balance Test Yee Balance Test Score 44 PT-OP-E Functional Tests Start: 09/18/20 11:30 Freq: Status: Active Protocol: Document 10/18/20 09:12 [facility] (Rec: 10/18/20 09:48 [facility] [id number]) Functional Tests 30 Second Sit to Stand Test Score 10 Comments silver chair Dynamic Gait Index (DGI) Score 23 Five Times Sit to Stand Test Score 14 sec Functional Gait Assessment Score 24 PT-OP-F Manual Assessment Start: 09/18/20 11:30 Freq: Status: Active Protocol: Document 09/18/20 15:23 [facility] (Rec: 09/18/20 16:07 [facility] [id number]) Manual Assessments Soft Tissue Assessment Soft Tissue Mobility Assessment tightness and tenderness into lat HS & calf & ITB Joint Mobility Assessment Joint Mobility Assessment L knee ROM: 12-88 pain flex R knee ROM:12-125 PT-OP-G Mobility & Gait Start: 09/18/20 11:30 Freq: Status: Active Protocol: Document 09/18/20 15:23 [facility] (Rec: 09/18/20 16:07 [facility] [id number]) OP Gait Assessment Comments Gait Comments Inc lat leaning w/dec push off B, unstable when first standing from surfaces PT-OP-M Strength Start: 09/18/20 11:30 Freq: Status: Active Protocol: Document 10/18/20 09:12 [facility] (Rec: 10/18/20 09:48 [facility] [id number]) Hip Strength Hip Manual Muscle Testing Right Flexion (L2) 4 Good Extension (S1) 3+ Fair+ Abduction 3+ Fair+ External Rotation 4- Good- Internal Rotation 4+ Good+ Left Flexion (L2) 3+ Fair+ Extension (S1) 3+ Fair+ Abduction 3+ Fair+ External Rotation 4- Good- Internal Rotation 4+ Good+ Knee Strength Knee Manual Muscle Testing Right Flexion (S2) 5 Normal Extension (L3) 5 Normal Left Flexion (S2) 5 Normal Extension (L3) 4+ Good+ Ankle/Foot Strength Ankle and Foot Manual Muscle Testing Left Dorsiflexion (L4) 5 Normal Plantarflexion (S1) 5 Normal Right Dorsiflexion (L4) 5 Normal Plantarflexion (S1) 5 Normal Comments seated PF tested B PT-OP-Q Treatments Start: 09/18/20 11:30 Freq: Status: Active Protocol: Document 10/25/20 08:35 [facility] (Rec: 10/25/20 09:01 [facility] [id number]) Cardio Equipment Recumbent Elliptical (Zuvvu) Duration (Minutes) 6 Resistance 7 Seat Position 7 Gym Equipment Shuttle Recovery Unilateral Squats Details Bilaterally Resistance 50# Shuttle Recovery Platform Stable Reps/Time 2x15 Bilateral Squats Details cueing to have feet apart and avoid knees knocking Resistance 100# Shuttle Recovery Platform Unstable Reps/Time 2x15 Therapeutic Exercises Standing Exercises lunges Standing Exercise Name fwd mini Side bilateral Equipment Used rail prn Reps/Minutes 10x ea Manual Therapy Treatment Soft Tissue Mobilization ITB Body Location L ITB Mobilization Type Rolling,Sustained Pressure, Trigger Point Release Intensity/Depth Moderate Body Position Prone glutes Body Location L Mobilization Type Sustained Pressure,Trigger Point Release Intensity/Depth Moderate Body Position Prone Comments w/hip ER/IR HS Body Location L Mobilization Type Rolling,Strumming,Sustained Pressure Intensity/Depth Moderate Body Position Sidelying Comments w/knee flex Joint Mobilizations hip Joint L Direction hip on axis FM ER Neuro Re-Education Treatment Balance Activities bosu Details step ups B Reps/Duration 10 ea Stepping Details hurdles Equipment 2# on ea ankle Comments over fwd x6, over side x1 B PT-OP-T Assessment and Plan Start: 09/18/20 11:30 Freq: Status: Active Protocol: Document 10/25/20 08:35 [facility] (Rec: 10/25/20 09:01 [facility] [id number]) Physical Therapy Assessment Goals pain Short Term Goal (STG) Pt will have full range of L knee without pain in order to allow greater ease of activities. 10/18-improved to 100 STG Duration 10/27/20 Detention Goal (LTG) Pt will be able to go up/down stairs without pain & squat down without inc thigh and calf pain. LTG Duration achieved up/down from ground Short Term Goal (STG) Pt will feel comfortable walking around her yard without fear of falling. STG Duration achieved Detention Goal (LTG) Pt will be able to get up/down from the ground comfortably in order to do yard work activities. LTG Duration 11/18/20 sit to stand Short Term Goal (STG) Pt will be able to do 5x sit to dipping machine operator 12 sec to show inc strength and dec risk for falls. 10/18-improved 14 sec STG Duration 10/27/20 Detention Goal (LTG) Pt will be able to do 13 sit to stands in 30 sec to show improved strength and dec risk for falls. 10/18-improved LTG Duration 11/19/20 strength Short Term Goal (STG) Pt will be indep with HEP STG Duration 10/19/20 Pressure Washer Goal (LTG) Pt will score 4+/5 for all LE motions to make pt have greater ease with getting around. LTG Duration 11/18/20 FGA Impairment DGI 16/24, FGA12/30 Short Term Goal (STG) pt will score 20 or more on DGI to show dec risk for falls . STG Duration achieved Pressure Washer Goal (LTG) Pt will score 25/30 on FGA to show dec risk for falls and to show improved balance to be safe on her boat. 10/18- significnat improvement LTG Duration 11/18/20 Assessment Summary Assessment Pt has signficant stiffness in L hip which may cause nerve tension into LLE, creating some of her pain. Dec hip mobility into ER. Improving balance w/exercises. cueing still needed for lunge position Physical Therapy Plan Frequency and Duration Frequency of Treatment 2x/Week Duration of Treatment 2 months Plan of Care Start Date 09/18/20 Plan of Care End Date 11/18/20 Next Visit Focus/Plan Next Note Type Treatment Note Next Visit Plan cont to work on balance & manual for L knee ROM & hip ROM w/o leg pian, manual to LB to dec pain
--- NOTE | 2020-10-30 08:13 | PT.OTN ---
Current Diagnoses Pain in left thigh (10/30/20) Difficulty in walking, not elsewhere classified (10/30/20) Abnormal posture (10/30/20) Other symptoms and signs involving the musculoskeletal system (10/30/20) Weakness (10/30/20) Physical Therapy Treatment Note PT-OP-A Visit Information Start: 09/18/20 11:30 Freq: Status: Active Protocol: Document 10/30/20 07:28 [facility] (Rec: 10/30/20 08:13 [facility] [id number]) Out-Patient Physical Therapy Visit Information Visit Information Visit Type Treatment Note Visit Note 11/06 Visit Start Time 07:31 Visit Stop Time 08:11 Total Visit Minutes 40 Visit Number 13 Number of SENIOR ASSOCIATE Visits 0 PT-OP-B Current Condition Start: 09/18/20 11:30 Freq: Status: Active Protocol: Document 09/18/20 15:23 [facility] (Rec: 09/18/20 16:07 [facility] [id number]) Current Condition History of Current Condition Onset Date 6 Weeks History of Current Condition Pt felt weak and that her legs wouldn't hold her up. Feels like legs are really wobby and it feels like she is on something uneven. She collapsed about 10 days ago. Testing was done for rheumatoid disease and all was negative. Pt reports at some point injured L HS & calf region where it hurts to bend. It gets better/worse. Pt reports 3 falls in past few weeks when stepping on RLE and now can no longer get off ground. Pt still is doing things like walking amile but slwoer than usual Works in yard very slowly to be careful of RLE for a couple hours. Pt reports LBP but if she sits down it goes away. Pt had just finished PT 1 month prior to this decline and was doing well until the end of Jun. She does not know what started this. She has had an ongoing month issue that she has been on steroid ointment & antibiotics and pathology report was benign. She takes her last dose of antibiotic today and mouth is much better . Pt reports if she sits fo rlong periords and feels really wobbly when she stands up. Treatment Goals Patient/Caregiver Goals Yard work, no falls, be able to go out on her boat in October PT-OP-C Subjective Start: 09/18/20 11:30 Freq: Status: Active Protocol: Document 10/30/20 07:28 [facility] (Rec: 10/30/20 08:13 [facility] [id number]) OP-PT Subjective Patient Comments Patient Comments Pt reports a horrible day yesterday. Notes her BP was okay but her legs felt weak while mowing the lawna nd could tell they wouldn't hold up so let go so it would turn off and fell backwards. Pt reports she was able to get up after a little while and resumed mowing the lawn. PT-OP-D Balance Start: 09/18/20 11:30 Freq: Status: Active Protocol: Document 09/18/20 15:23 [facility] (Rec: 09/18/20 16:07 [facility] [id number]) Balance Tests Yee Balance Test Yee Balance Test Score 44 PT-OP-E Functional Tests Start: 09/18/20 11:30 Freq: Status: Active Protocol: Document 10/18/20 09:12 [facility] (Rec: 10/18/20 09:48 [facility] [id number]) Functional Tests 30 Second Sit to Stand Test Score 10 Comments silver chair Dynamic Gait Index (DGI) Score 23 Five Times Sit to Stand Test Score 14 sec Functional Gait Assessment Score 24 PT-OP-F Manual Assessment Start: 09/18/20 11:30 Freq: Status: Active Protocol: Document 09/18/20 15:23 [facility] (Rec: 09/18/20 16:07 [facility] [id number]) Manual Assessments Soft Tissue Assessment Soft Tissue Mobility Assessment tightness and tenderness into lat HS & calf & ITB Joint Mobility Assessment Joint Mobility Assessment L knee ROM: 12-88 pain flex R knee ROM:12-125 PT-OP-G Mobility & Gait Start: 09/18/20 11:30 Freq: Status: Active Protocol: Document 09/18/20 15:23 [facility] (Rec: 09/18/20 16:07 [facility] [id number]) OP Gait Assessment Comments Gait Comments Inc lat leaning w/dec push off B, unstable when first standing from surfaces PT-OP-M Strength Start: 09/18/20 11:30 Freq: Status: Active Protocol: Document 10/18/20 09:12 [facility] (Rec: 10/18/20 09:48 [facility] [id number]) Hip Strength Hip Manual Muscle Testing Right Flexion (L2) 4 Good Extension (S1) 3+ Fair+ Abduction 3+ Fair+ External Rotation 4- Good- Internal Rotation 4+ Good+ Left Flexion (L2) 3+ Fair+ Extension (S1) 3+ Fair+ Abduction 3+ Fair+ External Rotation 4- Good- Internal Rotation 4+ Good+ Knee Strength Knee Manual Muscle Testing Right Flexion (S2) 5 Normal Extension (L3) 5 Normal Left Flexion (S2) 5 Normal Extension (L3) 4+ Good+ Ankle/Foot Strength Ankle and Foot Manual Muscle Testing Left Dorsiflexion (L4) 5 Normal Plantarflexion (S1) 5 Normal Right Dorsiflexion (L4) 5 Normal Plantarflexion (S1) 5 Normal Comments seated PF tested B PT-OP-Q Treatments Start: 09/18/20 11:30 Freq: Status: Active Protocol: Document 10/30/20 07:28 [facility] (Rec: 10/30/20 08:13 [facility] [id number]) Cardio Equipment Recumbent Elliptical (Biodex) Duration (Minutes) 6 Resistance 7 Seat Position 7 Gym Equipment Shuttle Recovery Unilateral Squats Details Bilaterally Resistance 62# Shuttle Recovery Platform Stable Reps/Time 2x15 Bilateral Squats Details cueing to have feet apart and avoid knees knocking Resistance 100# Shuttle Recovery Platform Unstable Reps/Time 2x15 Shuttle Balance red clips Comments fwd & side: WBOS, NBOS fwd: staggered B Therapeutic Exercises Standing Exercises lunges Standing Exercise Name fwd mini Side bilateral Equipment Used rail prn Reps/Minutes 10x ea Comments in mirror Therapeutic Activity Therapeutic Activity posture Name standing in mirror w/focus on comfortable neutral back position Comments avoiding pain but dec SB and lat shear or back and set up of thoracic block over pelvis Manual Therapy Treatment Soft Tissue Mobilization QL, paraspinals, ES Body Location L Mobilization Type Rolling,Sustained Pressure Intensity/Depth Moderate Body Position Sidelying Comments w/ant elevation/post dep PT-OP-T Assessment and Plan Start: 09/18/20 11:30 Freq: Status: Active Protocol: Document 10/30/20 07:28 [facility] (Rec: 10/30/20 08:13 [facility] [id number]) Physical Therapy Assessment Goals pain Short Term Goal (STG) Pt will have full range of L knee without pain in order to allow greater ease of activities. 10/18-improved to 100 STG Duration 10/27/20 Longterm Goal (LTG) Pt will be able to go up/down stairs without pain & squat down without inc thigh and calf pain. LTG Duration achieved up/down from ground Short Term Goal (STG) Pt will feel comfortable walking around her yard without fear of falling. STG Duration achieved Longterm Goal (LTG) Pt will be able to get up/down from the ground comfortably in order to do yard work activities. LTG Duration 11/18/20 sit to stand Short Term Goal (STG) Pt will be able to do 5x sit to director instrumentation 12 sec to show inc strength and dec risk for falls. 10/18-improved 14 sec STG Duration 10/27/20 Resp Ther Goal (LTG) Pt will be able to do 13 sit to stands in 30 sec to show improved strength and dec risk for falls. 10/18-improved LTG Duration 11/19/20 strength Short Term Goal (STG) Pt will be indep with HEP STG Duration 10/19/20 Resp Ther Goal (LTG) Pt will score 4+/5 for all LE motions to make pt have greater ease with getting around. LTG Duration 11/18/20 FGA Impairment DGI 16/24, FGA12/30 Short Term Goal (STG) pt will score 20 or more on DGI to show dec risk for falls . STG Duration achieved Resp Ther Goal (LTG) Pt will score 25/30 on FGA to show dec risk for falls and to show improved balance to be safe on her boat. 10/18- significnat improvement LTG Duration 11/18/20 Assessment Summary Assessment Pt did well with inc in reisstance with leg press today with both single and dlouble leg. She had more difficulty with balance board that improved some w/slight adjustment in posture. Focus on back today in hopes that will dec instances of L Leg weakness Physical Therapy Plan Frequency and Duration Frequency of Treatment 2x/Week Duration of Treatment 2 months Plan of Care Start Date 09/18/20 Plan of Care End Date 11/18/20 Next Visit Focus/Plan Next Note Type Treatment Note Next Visit Plan cont to work on balance & manual for L knee ROM & hip ROM w/o leg gaelan, manual to LB to dec pain
--- NOTE | 2020-11-02 09:00 | PT.OTN ---
Current Diagnoses Pain in left thigh (11/02/20) Difficulty in walking, not elsewhere classified (11/02/20) Abnormal posture (11/02/20) Other symptoms and signs involving the musculoskeletal system (11/02/20) Weakness (11/02/20) Physical Therapy Treatment Note PT-OP-A Visit Information Start: 09/18/20 11:30 Freq: Status: Active Protocol: Document 11/02/20 08:20 [facility] (Rec: 11/02/20 09:00 [facility] [id number]) Out-Patient Physical Therapy Visit Information Visit Information Visit Type Treatment Note Visit Note 12/07 Visit Start Time 08:17 Visit Stop Time 08:58 Total Visit Minutes 41 Visit Number 14 Number of SONOGRAM TECHNICIAN Visits 0 PT-OP-B Current Condition Start: 09/18/20 11:30 Freq: Status: Active Protocol: Document 09/18/20 15:23 [facility] (Rec: 09/18/20 16:07 [facility] [id number]) Current Condition History of Current Condition Onset Date 6 Weeks History of Current Condition Pt felt weak and that her legs wouldn't hold her up. Feels like legs are really wobby and it feels like she is on something uneven. She collapsed about 10 days ago. Testing was done for rheumatoid disease and all was negative. Pt reports at some point injured L HS & calf region where it hurts to bend. It gets better/worse. Pt reports 3 falls in past few weeks when stepping on RLE and now can no longer get off ground. Pt still is doing things like walking amile but slwoer than usual Works in yard very slowly to be careful of RLE for a couple hours. Pt reports LBP but if she sits down it goes away. Pt had just finished PT 1 month prior to this decline and was doing well until the end of Jun. She does not know what started this. She has had an ongoing month issue that she has been on steroid ointment & antibiotics and pathology report was benign. She takes her last dose of antibiotic today and mouth is much better . Pt reports if she sits fo rlong periords and feels really wobbly when she stands up. Treatment Goals Patient/Caregiver Goals Yard work, no falls, be able to go out on her boat in October PT-OP-C Subjective Start: 09/18/20 11:30 Freq: Status: Active Protocol: Document 11/02/20 08:20 [facility] (Rec: 11/02/20 09:00 [facility] [id number]) OP-PT Subjective Patient Comments Patient Comments Pt reports congestion in one side after appt but improved yesterday. PT-OP-D Balance Start: 09/18/20 11:30 Freq: Status: Active Protocol: Document 09/18/20 15:23 [facility] (Rec: 09/18/20 16:07 [facility] [id number]) Balance Tests Yee Balance Test Eye Balance Test Score 44 PT-OP-E Functional Tests Start: 09/18/20 11:30 Freq: Status: Active Protocol: Document 10/18/20 09:12 [facility] (Rec: 10/18/20 09:48 [facility] [id number]) Functional Tests 30 Second Sit to Stand Test Score 10 Comments silver chair Dynamic Gait Index (DGI) Score 23 Five Times Sit to Stand Test Score 14 sec Functional Gait Assessment Score 24 PT-OP-F Manual Assessment Start: 09/18/20 11:30 Freq: Status: Active Protocol: Document 09/18/20 15:23 [facility] (Rec: 09/18/20 16:07 [facility] [id number]) Manual Assessments Soft Tissue Assessment Soft Tissue Mobility Assessment tightness and tenderness into lat HS & calf & ITB Joint Mobility Assessment Joint Mobility Assessment L knee ROM: 12-88 pain flex R knee ROM:12-125 PT-OP-G Mobility & Gait Start: 09/18/20 11:30 Freq: Status: Active Protocol: Document 09/18/20 15:23 [facility] (Rec: 09/18/20 16:07 [facility] [id number]) OP Gait Assessment Comments Gait Comments Inc lat leaning w/dec push off B, unstable when first standing from surfaces PT-OP-M Strength Start: 09/18/20 11:30 Freq: Status: Active Protocol: Document 10/18/20 09:12 [facility] (Rec: 10/18/20 09:48 [facility] [id number]) Hip Strength Hip Manual Muscle Testing Right Flexion (L2) 4 Good Extension (S1) 3+ Fair+ Abduction 3+ Fair+ External Rotation 4- Good- Internal Rotation 4+ Good+ Left Flexion (L2) 3+ Fair+ Extension (S1) 3+ Fair+ Abduction 3+ Fair+ External Rotation 4- Good- Internal Rotation 4+ Good+ Knee Strength Knee Manual Muscle Testing Right Flexion (S2) 5 Normal Extension (L3) 5 Normal Left Flexion (S2) 5 Normal Extension (L3) 4+ Good+ Ankle/Foot Strength Ankle and Foot Manual Muscle Testing Left Dorsiflexion (L4) 5 Normal Plantarflexion (S1) 5 Normal Right Dorsiflexion (L4) 5 Normal Plantarflexion (S1) 5 Normal Comments seated PF tested B PT-OP-Q Treatments Start: 09/18/20 11:30 Freq: Status: Active Protocol: Document 11/02/20 08:20 [facility] (Rec: 11/02/20 09:00 [facility] [id number]) Cardio Equipment Recumbent Elliptical (Biodex) Duration (Minutes) 6 Resistance 7 Seat Position 7 Gym Equipment Shuttle Recovery Unilateral Squats Details Bilaterally Resistance 62# Shuttle Recovery Platform Stable Reps/Time 2x15 Bilateral Squats Details cueing to have feet apart and avoid knees knocking Resistance 125# Shuttle Recovery Platform Unstable Reps/Time 2x15 Shuttle Balance red clips Comments fwd & side: WBOS, NBOS fwd: staggered B Therapeutic Ball seated Reps/Duration 10 ea Comments 1. pelvic circles B 2. marches B 3. kicks B Manual Therapy Treatment Soft Tissue Mobilization QL, paraspinals, ES Body Location L Mobilization Type Rolling,Sustained Pressure Intensity/Depth Moderate Body Position Sidelying Comments w/ant elevation/post dep PT-OP-T Assessment and Plan Start: 09/18/20 11:30 Freq: Status: Active Protocol: Document 11/02/20 08:20 [facility] (Rec: 11/02/20 09:00 [facility] [id number]) Physical Therapy Assessment Goals pain Short Term Goal (STG) Pt will have full range of L knee without pain in order to allow greater ease of activities. 10/18-improved to 100 STG Duration 10/27/20 Central Supply Worker Goal (LTG) Pt will be able to go up/down stairs without pain & squat down without inc thigh and calf pain. LTG Duration achieved up/down from ground Short Term Goal (STG) Pt will feel comfortable walking around her yard without fear of falling. STG Duration achieved Prison Goal (LTG) Pt will be able to get up/down from the ground comfortably in order to do yard work activities. LTG Duration 11/18/20 sit to stand Short Term Goal (STG) Pt will be able to do 5x sit to lighting fixture installer 12 sec to show inc strength and dec risk for falls. 10/18-improved 14 sec STG Duration 10/27/20 Prison Goal (LTG) Pt will be able to do 13 sit to stands in 30 sec to show improved strength and dec risk for falls. 10/18-improved LTG Duration 11/19/20 strength Short Term Goal (STG) Pt will be indep with HEP STG Duration 10/19/20 Central Supply Worker Goal (LTG) Pt will score 4+/5 for all LE motions to make pt have greater ease with getting around. LTG Duration 11/18/20 FGA Impairment DGI 1624, FGA12/30 Short Term Goal (STG) pt will score 20 or more on DGI to show dec risk for falls . STG Duration achieved Prison Goal (LTG) Pt will score 25/30 on FGA to show dec risk for falls and to show improved balance to be safe on her boat. 10/18- significnat improvement LTG Duration 11/18/20 Assessment Summary Assessment Pt did well with inc resistance with leg press today. She was significantly challenged by sitting on ball w/lifting RLE and WB into LLE only. Improved balanceon board except staggereds tance still signficiantly challenging. Physical Therapy Plan Frequency and Duration Frequency of Treatment 2x/Week Duration of Treatment 2 months Plan of Care Start Date 09/18/20 Plan of Care End Date 11/18/20 Next Visit Focus/Plan Next Note Type Treatment Note Next Visit Plan cont to work on balance & manual for L knee ROM & hip ROM w/o leg pain, manual to LB to dec pain
--- NOTE | 2020-11-07 13:42 | PT.OTN ---
Current Diagnoses Pain in left thigh (11/07/20) Difficulty in walking, not elsewhere classified (11/07/20) Abnormal posture (11/07/20) Other symptoms and signs involving the musculoskeletal system (11/07/20) Weakness (11/07/20) Physical Therapy Treatment Note PT-OP-A Visit Information Start: 09/18/20 11:30 Freq: Status: Active Protocol: Document 11/07/20 12:58 [facility] (Rec: 11/07/20 13:41 [facility] [id number]) Out-Patient Physical Therapy Visit Information Visit Information Visit Type Treatment Note Visit Note 01/06 Visit Start Time 13:00 Visit Stop Time 13:39 Total Visit Minutes 39 Visit Number 15 Number of PHARMACY TECH Visits 0 PT-OP-B Current Condition Start: 09/18/20 11:30 Freq: Status: Active Protocol: Document 09/18/20 15:23 [facility] (Rec: 09/18/20 16:07 [facility] [id number]) Current Condition History of Current Condition Onset Date 6 Weeks History of Current Condition Pt felt weak and that her legs wouldn't hold her up. Feels like legs are really wobby and it feels like she is on something uneven. She collapsed about 10 days ago. Testing was done for rheumatoid disease and all was negative. Pt reports at some point injured L HS & calf region where it hurts to bend. It gets better/worse. Pt reports 3 falls in past few weeks when stepping on RLE and now can no longer get off ground. Pt still is doing things like walking amile but slwoer than usual Works in yard very slowly to be careful of RLE for a couple hours. Pt reports LBP but if she sits down it goes away. Pt had just finished PT 1 month prior to this decline and was doing well until the end of Jun. She does not know what started this. She has had an ongoing month issue that she has been on steroid ointment & antibiotics and pathology report was benign. She takes her last dose of antibiotic today and mouth is much better . Pt reports if she sits fo rlong periords and feels really wobbly when she stands up. Treatment Goals Patient/Caregiver Goals Yard work, no falls, be able to go out on her boat in October PT-OP-C Subjective Start: 09/18/20 11:30 Freq: Status: Active Protocol: Document 11/07/20 12:58 [facility] (Rec: 11/07/20 13:41 [facility] [id number]) OP-PT Subjective Patient Comments Patient Comments Pt reports pain in R add region this AM. Notes she sat down to the gorund when mowing the lawn d/t legs giving out under her. Notes she just doesn't feel as strong. Sees petrology teacher tomorrow and sees graphic user interface designer friday. PT-OP-D Balance Start: 09/18/20 11:30 Freq: Status: Active Protocol: Document 09/18/20 15:23 [facility] (Rec: 09/18/20 16:07 [facility] [id number]) Balance Tests Yee Balance Test Yee Balance Test Score 44 PT-OP-E Functional Tests Start: 09/18/20 11:30 Freq: Status: Active Protocol: Document 10/18/20 09:12 [facility] (Rec: 10/18/20 09:48 [facility] [id number]) Functional Tests 30 Second Sit to Stand Test Score 10 Comments silver chair Dynamic Gait Index (DGI) Score 23 Five Times Sit to Stand Test Score 14 sec Functional Gait Assessment Score 24 PT-OP-F Manual Assessment Start: 09/18/20 11:30 Freq: Status: Active Protocol: Document 09/18/20 15:23 [facility] (Rec: 09/18/20 16:07 [facility] [id number]) Manual Assessments Soft Tissue Assessment Soft Tissue Mobility Assessment tightness and tenderness into lat HS & calf & ITB Joint Mobility Assessment Joint Mobility Assessment L knee ROM: 12-88 pain flex R knee ROM:12-125 PT-OP-G Mobility & Gait Start: 09/18/20 11:30 Freq: Status: Active Protocol: Document 09/18/20 15:23 [facility] (Rec: 09/18/20 16:07 [facility] [id number]) OP Gait Assessment Comments Gait Comments Inc lat leaning w/dec push off B, unstable when first standing from surfaces PT-OP-M Strength Start: 09/18/20 11:30 Freq: Status: Active Protocol: Document 10/18/20 09:12 [facility] (Rec: 10/18/20 09:48 [facility] [id number]) Hip Strength Hip Manual Muscle Testing Right Flexion (L2) 4 Good Extension (S1) 3+ Fair+ Abduction 3+ Fair+ External Rotation 4- Good- Internal Rotation 4+ Good+ Left Flexion (L2) 3+ Fair+ Extension (S1) 3+ Fair+ Abduction 3+ Fair+ External Rotation 4- Good- Internal Rotation 4+ Good+ Knee Strength Knee Manual Muscle Testing Right Flexion (S2) 5 Normal Extension (L3) 5 Normal Left Flexion (S2) 5 Normal Extension (L3) 4+ Good+ Ankle/Foot Strength Ankle and Foot Manual Muscle Testing Left Dorsiflexion (L4) 5 Normal Plantarflexion (S1) 5 Normal Right Dorsiflexion (L4) 5 Normal Plantarflexion (S1) 5 Normal Comments seated PF tested B PT-OP-Q Treatments Start: 09/18/20 11:30 Freq: Status: Active Protocol: Document 11/07/20 12:58 [facility] (Rec: 11/07/20 13:41 [facility] [id number]) Cardio Equipment Recumbent Elliptical (Biodex) Duration (Minutes) 6 Resistance 7 Seat Position 7 Gym Equipment Shuttle Recovery Unilateral Squats Details Bilaterally Resistance 62# Shuttle Recovery Platform Stable Reps/Time 2x10 Bilateral Squats Details cueing to have feet apart and avoid knees knocking Resistance 125# Shuttle Recovery Platform Unstable Reps/Time 2x15 Therapeutic Ball seated Reps/Duration 10 ea Comments 1. pelvic circles B 2. marches B 3. kicks B Therapeutic Exercises Supine Exercises LTR Side bilateral Reps/Minutes 10 bridge Side bilateral Reps/Minutes 10x5 sec Comments arms across chest Standing Exercises lunges Standing Exercise Name fwd mini Side bilateral Equipment Used rail prn Reps/Minutes 10x ea Comments in mirror Other Exercises QUADRUPED Other Exercise Name 1. alt UE flex 2. alt hip ext Side bilateral Reps/Minutes 10 ea Manual Therapy Treatment Soft Tissue Mobilization glutes Body Location R Mobilization Type Sustained Pressure,Trigger Point Release Intensity/Depth Moderate Body Position Prone Comments w/hip ER/IR QL, paraspinals, ES Body Location B Mobilization Type Rolling,Sustained Pressure Intensity/Depth Moderate Body Position Prone Joint Mobilizations hip Joint R Direction ant glide w/ER Grade II PT-OP-T Assessment and Plan Start: 09/18/20 11:30 Freq: Status: Active Protocol: Document 11/07/20 12:58 [facility] (Rec: 11/07/20 13:41 [facility] [id number]) Physical Therapy Assessment Goals pain Short Term Goal (STG) Pt will have full range of L knee without pain in order to allow greater ease of activities. 10/18-improved to 100 STG Duration 10/27/20 Retirement Goal (LTG) Pt will be able to go up/down stairs without pain & squat down without inc thigh and calf pain. LTG Duration achieved up/down from ground Short Term Goal (STG) Pt will feel comfortable walking around her yard without fear of falling. STG Duration achieved Retirement Goal (LTG) Pt will be able to get up/down from the ground comfortably in order to do yard work activities. LTG Duration 11/18/20 sit to stand Short Term Goal (STG) Pt will be able to do 5x sit to interior assemblies developer prover 12 sec to show inc strength and dec risk for falls. 10/18-improved 14 sec STG Duration 10/27/20 Retirement Goal (LTG) Pt will be able to do 13 sit to stands in 30 sec to show improved strength and dec risk for falls. 10/18-improved LTG Duration 11/19/20 strength Short Term Goal (STG) Pt will be indep with HEP STG Duration 10/19/20 Director Franchise Sales Goal (LTG) Pt will score 4+/5 for all LE motions to make pt have greater ease with getting around. LTG Duration 11/18/20 FGA Impairment DGI 16/24, FGA12/30 Short Term Goal (STG) pt will score 20 or more on DGI to show dec risk for falls . STG Duration achieved Director Franchise Sales Goal (LTG) Pt will score 25/30 on FGA to show dec risk for falls and to show improved balance to be safe on her boat. 10/18- significnat improvement LTG Duration 11/18/20 Assessment Summary Assessment Pt had more difficulty with RLE duirng exercises and felt fatigue faster w/leg press today. Focus on spinal stability to help w/pain and dec sudden leg weakness. Physical Therapy Plan Frequency and Duration Frequency of Treatment 2x/Week Duration of Treatment 2 months Plan of Care Start Date 09/18/20 Plan of Care End Date 11/18/20 Next Visit Focus/Plan Next Note Type Treatment Note Next Visit Plan cont to work on balance & manual for L knee ROM & hip ROM w/o leg pain, manual to LB to dec pain; progress note next week
--- NOTE | 2020-11-10 13:23 | PT.OTN ---
Current Diagnoses Pain in left thigh (11/10/20) Difficulty in walking, not elsewhere classified (11/10/20) Abnormal posture (11/10/20) Other symptoms and signs involving the musculoskeletal system (11/10/20) Weakness (11/10/20) Physical Therapy Treatment Note PT-OP-A Visit Information Start: 09/18/20 11:30 Freq: Status: Active Protocol: Document 11/10/20 10:38 [facility] (Rec: 11/10/20 11:16 [facility] [id number]) Out-Patient Physical Therapy Visit Information Visit Information Visit Type Treatment Note Visit Note 02/06 Visit Start Time 10:35 Visit Stop Time 11:13 Total Visit Minutes 38 Visit Number 16 Number of GAS PROCESSING PLANT OPERATOR Visits 1 PT-OP-B Current Condition Start: 09/18/20 11:30 Freq: Status: Active Protocol: Document 09/18/20 15:23 [facility] (Rec: 09/18/20 16:07 [facility] [id number]) Current Condition History of Current Condition Onset Date 6 Weeks History of Current Condition Pt felt weak and that her legs wouldn't hold her up. Feels like legs are really wobby and it feels like she is on something uneven. She collapsed about 10 days ago. Testing was done for rheumatoid disease and all was negative. Pt reports at some point injured L HS & calf region where it hurts to bend. It gets better/worse. Pt reports 3 falls in past few weeks when stepping on RLE and now can no longer get off ground. Pt still is doing things like walking amile but slwoer than usual Works in yard very slowly to be careful of RLE for a couple hours. Pt reports LBP but if she sits down it goes away. Pt had just finished PT 1 month prior to this decline and was doing well until the end of Jun. She does not know what started this. She has had an ongoing month issue that she has been on steroid ointment & antibiotics and pathology report was benign. She takes her last dose of antibiotic today and mouth is much better . Pt reports if she sits fo rlong periords and feels really wobbly when she stands up. Treatment Goals Patient/Caregiver Goals Yard work, no falls, be able to go out on her boat in October PT-OP-C Subjective Start: 09/18/20 11:30 Freq: Status: Active Protocol: Document 11/10/20 10:38 [facility] (Rec: 11/10/20 11:16 [facility] [id number]) OP-PT Subjective Patient Comments Patient Comments Pt states she saw mine engineering manager but it wasn't her usual dr because hers broke his leg. She didn't like this dr. Dr prescribed her lasix but she doesn't feel she needs it because she has no swelling. PT-OP-D Balance Start: 09/18/20 11:30 Freq: Status: Active Protocol: Document 09/18/20 15:23 [facility] (Rec: 09/18/20 16:07 [facility] [id number]) Balance Tests Yee Balance Test Yee Balance Test Score 44 PT-OP-E Functional Tests Start: 09/18/20 11:30 Freq: Status: Active Protocol: Document 10/18/20 09:12 [facility] (Rec: 10/18/20 09:48 [facility] [id number]) Functional Tests 30 Second Sit to Stand Test Score 10 Comments silver chair Dynamic Gait Index (DGI) Score 23 Five Times Sit to Stand Test Score 14 sec Functional Gait Assessment Score 24 PT-OP-F Manual Assessment Start: 09/18/20 11:30 Freq: Status: Active Protocol: Document 09/18/20 15:23 [facility] (Rec: 09/18/20 16:07 [facility] [id number]) Manual Assessments Soft Tissue Assessment Soft Tissue Mobility Assessment tightness and tenderness into lat HS & calf & ITB Joint Mobility Assessment Joint Mobility Assessment L knee ROM: 12-88 pain flex R knee ROM:12-125 PT-OP-G Mobility & Gait Start: 09/18/20 11:30 Freq: Status: Active Protocol: Document 09/18/20 15:23 [facility] (Rec: 09/18/20 16:07 [facility] [id number]) OP Gait Assessment Comments Gait Comments Inc lat leaning w/dec push off B, unstable when first standing from surfaces PT-OP-M Strength Start: 09/18/20 11:30 Freq: Status: Active Protocol: Document 10/18/20 09:12 [facility] (Rec: 10/18/20 09:48 [facility] [id number]) Hip Strength Hip Manual Muscle Testing Right Flexion (L2) 4 Good Extension (S1) 3+ Fair+ Abduction 3+ Fair+ External Rotation 4- Good- Internal Rotation 4+ Good+ Left Flexion (L2) 3+ Fair+ Extension (S1) 3+ Fair+ Abduction 3+ Fair+ External Rotation 4- Good- Internal Rotation 4+ Good+ Knee Strength Knee Manual Muscle Testing Right Flexion (S2) 5 Normal Extension (L3) 5 Normal Left Flexion (S2) 5 Normal Extension (L3) 4+ Good+ Ankle/Foot Strength Ankle and Foot Manual Muscle Testing Left Dorsiflexion (L4) 5 Normal Plantarflexion (S1) 5 Normal Right Dorsiflexion (L4) 5 Normal Plantarflexion (S1) 5 Normal Comments seated PF tested B PT-OP-Q Treatments Start: 09/18/20 11:30 Freq: Status: Active Protocol: Document 11/10/20 10:38 [facility] (Rec: 11/10/20 11:16 [facility] [id number]) Gym Equipment Shuttle Recovery Unilateral Squats Details Bilaterally Resistance 62# Shuttle Recovery Platform Stable Reps/Time 2x10 Bilateral Squats Details cueing to have feet apart and avoid knees knocking Resistance 125# Shuttle Recovery Platform Unstable Reps/Time 2x15 Therapeutic Exercises Supine Exercises bridge Side bilateral Reps/Minutes 10x5 sec Comments arms across chest Manual Therapy Treatment Soft Tissue Mobilization glutes Body Location jena Mobilization Type Sustained Pressure,Trigger Point Release Intensity/Depth Moderate Body Position Sidelying QL, paraspinals, ES Body Location B Mobilization Type Rolling,Sustained Pressure Intensity/Depth Moderate Body Position Sidelying Self-Care/Home Management Treatment Education Other Education Tennis ball STM to jena glutes for HEP PT-OP-T Assessment and Plan Start: 09/18/20 11:30 Freq: Status: Active Protocol: Document 11/10/20 10:38 [facility] (Rec: 11/10/20 11:16 [facility] [id number]) Physical Therapy Assessment Goals pain Short Term Goal (STG) Pt will have full range of L knee without pain in order to allow greater ease of activities. 10/18-improved to 100 STG Duration 10/27/20 [facility] Goal (LTG) Pt will be able to go up/down stairs without pain & squat down without inc thigh and calf pain. LTG Duration achieved up/down from ground Short Term Goal (STG) Pt will feel comfortable walking around her yard without fear of falling. STG Duration achieved Gaming Floor Supervisor Goal (LTG) Pt will be able to get up/down from the ground comfortably in order to do yard work activities. LTG Duration 11/18/20 sit to stand Short Term Goal (STG) Pt will be able to do 5x sit to ginner helper 12 sec to show inc strength and dec risk for falls. 10/18-improved 14 sec STG Duration 10/27/20 Gaming Floor Supervisor Goal (LTG) Pt will be able to do 13 sit to stands in 30 sec to show improved strength and dec risk for falls. 10/18-improved LTG Duration 11/19/20 strength Short Term Goal (STG) Pt will be indep with HEP STG Duration 10/19/20 Gaming Floor Supervisor Goal (LTG) Pt will score 4+/5 for all LE motions to make pt have greater ease with getting around. LTG Duration 11/18/20 FGA Impairment DGI 1624, FGA12/30 Short Term Goal (STG) pt will score 20 or more on DGI to show dec risk for falls . STG Duration achieved [facility] Goal (LTG) Pt will score 25/30 on FGA to show dec risk for falls and to show improved balance to be safe on her boat. 10/18- significnat improvement LTG Duration 11/18/20 Assessment Summary Assessment Pt arrives requesting more soft tissue work on back and glutes because she feels that helped with her LBP and LE pain. Taught pt how to use tennis ball for self-STM to glutes with a widened stance for when she is living on her boat to avoid LOB. Pt feels her strength has improved and is getting close to baseline from previous d/c from therapy last year. Physical Therapy Plan Frequency and Duration Frequency of Treatment 2x/Week Duration of Treatment 2 months Plan of Care Start Date 09/18/20 Plan of Care End Date 11/18/20 Therapeutic Interventions Therapeutic Interventions Aquatic Therapy,Balance Training,Gait Training,Home Exercise Program,Joint Mobilizations,Manual Therapy, Neuromuscular Re-education, Patient/Caregiver Education, Self-Care/Home Management,Soft Tissue Mobilization,Taping, Therapeutic Activities, Therapeutic Exercises Modalities Cold Pack/Ice Massage,Electric Stimulation,Hot Packs, Ultrasound Next Visit Focus/Plan Next Note Type Treatment Note Next Visit Plan cont to work on balance & manual for L knee ROM & hip ROM w/o leg pain, manual to LB to dec pain; progress note next week
--- NOTE | 2020-11-14 13:51 | PT.OTN ---
Current Diagnoses Pain in left thigh (11/14/20) Difficulty in walking, not elsewhere classified (11/14/20) Abnormal posture (11/14/20) Other symptoms and signs involving the musculoskeletal system (11/14/20) Weakness (11/14/20) Physical Therapy Treatment Note PT-OP-A Visit Information Start: 09/18/20 11:30 Freq: Status: Active Protocol: Document 11/14/20 12:57 [facility] (Rec: 11/14/20 13:51 [facility] [id number]) Out-Patient Physical Therapy Visit Information Visit Information Visit Type Progress Note Visit Note 07/09 Visit Start Time 13:00 Visit Stop Time 13:41 Total Visit Minutes 41 Visit Number 17 Number of INDEPENDENT TRADER Visits 0 PT-OP-B Current Condition Start: 09/18/20 11:30 Freq: Status: Active Protocol: Document 09/18/20 15:23 [facility] (Rec: 09/18/20 16:07 [facility] [id number]) Current Condition History of Current Condition Onset Date 6 Weeks History of Current Condition Pt felt weak and that her legs wouldn't hold her up. Feels like legs are really wobby and it feels like she is on something uneven. She collapsed about 10 days ago. Testing was done for rheumatoid disease and all was negative. Pt reports at some point injured L HS & calf region where it hurts to bend. It gets better/worse. Pt reports 3 falls in past few weeks when stepping on RLE and now can no longer get off ground. Pt still is doing things like walking amile but slwoer than usual Works in yard very slowly to be careful of RLE for a couple hours. Pt reports LBP but if she sits down it goes away. Pt had just finished PT 1 month prior to this decline and was doing well until the end of Jun. She does not know what started this. She has had an ongoing month issue that she has been on steroid ointment & antibiotics and pathology report was benign. She takes her last dose of antibiotic today and mouth is much better . Pt reports if she sits fo rlong periords and feels really wobbly when she stands up. Treatment Goals Patient/Caregiver Goals Yard work, no falls, be able to go out on her boat in October PT-OP-C Subjective Start: 09/18/20 11:30 Freq: Status: Active Protocol: Document 11/14/20 12:57 [facility] (Rec: 11/14/20 13:51 [facility] [id number]) OP-PT Subjective Patient Comments Patient Comments Pt reports she feels likeshe is slowly improving. Saw geometry tutor last week which pt said was a waste of time. saw Dr. Tran yesterday who had her wear braces in wrists and that helped numbness in hands. He gave her a referral to neurologist. notes incontinence over past month and MD thingks it is d/t nerve damage in back PT-OP-D Balance Start: 09/18/20 11:30 Freq: Status: Active Protocol: Document 09/18/20 15:23 [facility] (Rec: 09/18/20 16:07 [facility] [id number]) Balance Tests Yee Balance Test Yee Balance Test Score 44 PT-OP-E Functional Tests Start: 09/18/20 11:30 Freq: Status: Active Protocol: Document 11/14/20 12:57 [facility] (Rec: 11/14/20 13:51 [facility] [id number]) Functional Tests 30 Second Sit to Stand Test Score 9 Comments silver chair Five Times Sit to Stand Test Score 14 sec Comments silver Functional Gait Assessment Score 23 PT-OP-F Manual Assessment Start: 09/18/20 11:30 Freq: Status: Active Protocol: Document 09/18/20 15:23 [facility] (Rec: 09/18/20 16:07 [facility] [id number]) Manual Assessments Soft Tissue Assessment Soft Tissue Mobility Assessment tightness and tenderness into lat HS & calf & ITB Joint Mobility Assessment Joint Mobility Assessment L knee ROM: 12-88 pain flex R knee ROM:12-125 PT-OP-G Mobility & Gait Start: 09/18/20 11:30 Freq: Status: Active Protocol: Document 09/18/20 15:23 [facility] (Rec: 09/18/20 16:07 [facility] [id number]) OP Gait Assessment Comments Gait Comments Inc lat leaning w/dec push off B, unstable when first standing from surfaces PT-OP-M Strength Start: 09/18/20 11:30 Freq: Status: Active Protocol: Document 11/14/20 12:57 [facility] (Rec: 11/14/20 13:51 [facility] [id number]) Hip Strength Hip Manual Muscle Testing Right Flexion (L2) 4 Good Extension (S1) 3+ Fair+ Abduction 4 Good Adduction 4- Good- External Rotation 4- Good- Internal Rotation 4+ Good+ Left Flexion (L2) 3+ Fair+ Extension (S1) 3+ Fair+ Abduction 4- Good- Adduction 4- Good- External Rotation 4- Good- Internal Rotation 4+ Good+ Knee Strength Knee Manual Muscle Testing Right Flexion (S2) 5 Normal Extension (L3) 5 Normal Left Flexion (S2) 4 Good Extension (L3) 5 Normal Ankle/Foot Strength Ankle and Foot Manual Muscle Testing Left Dorsiflexion (L4) 5 Normal Plantarflexion (S1) 5 Normal Right Dorsiflexion (L4) 5 Normal Plantarflexion (S1) 5 Normal Comments seated PF tested B PT-OP-Q Treatments Start: 09/18/20 11:30 Freq: Status: Active Protocol: Document 11/14/20 12:57 [facility] (Rec: 11/14/20 13:51 [facility] [id number]) Therapeutic Exercises Supine Exercises pelvic tilt Supine Exercise Name focus on no pull up of shoulders Reps/Minutes 10 Comments cues for breathing LTR Side bilateral Reps/Minutes 10 SLR Supine Exercise Name core focus Side left Reps/Minutes 12 bridge Side bilateral Reps/Minutes 5x5 sec Comments arms across chest Manual Therapy Treatment Soft Tissue Mobilization QL, paraspinals, ES Body Location L Mobilization Type Rolling,Sustained Pressure Intensity/Depth Moderate Body Position Sidelying Comments w/ant elevation/post dep Joint Mobilizations Lumbar Joint L3 Direction transverse glide L FM Grade II Body Position Sidelying PT-OP-T Assessment and Plan Start: 09/18/20 11:30 Freq: Status: Active Protocol: Document 11/14/20 12:57 [facility] (Rec: 11/14/20 13:51 [facility] [id number]) Physical Therapy Assessment Goals pain Short Term Goal (STG) Pt will have full range of L knee without pain in order to allow greater ease of activities. 10/18-improved to 100 11/14-100deg STG Duration 12/15/20 State Attorney Goal (LTG) Pt will be able to go up/down stairs without pain & squat down without inc thigh and calf pain. LTG Duration achieved up/down from ground Short Term Goal (STG) Pt will feel comfortable walking around her yard without fear of falling. STG Duration achieved State Attorney Goal (LTG) Pt will be able to get up/down from the ground comfortably in order to do yard work activities. 11/14-still requires UE support LTG Duration 01/14/21 sit to stand Short Term Goal (STG) Pt will be able to do 5x sit to installation drafter 12 sec to show inc strength and dec risk for falls. 10/18-improved 14 sec 11/14-no change STG Duration 12/15/20 [facility] Goal (LTG) Pt will be able to do 13 sit to stands in 30 sec to show improved strength and dec risk for falls. 10/18-improved 11/14-no change LTG Duration 01/14/21 strength Short Term Goal (STG) Pt will be indep with HEP STG Duration achieved State Attorney Goal (LTG) Pt will score 4+/5 for all LE motions to make pt have greater ease with getting around. 11/14-imprvoing LTG Duration 01/14 FGA Impairment DGI 16/24, FGA12/30 Short Term Goal (STG) pt will score 20 or more on DGI to show dec risk for falls . STG Duration achieved State Attorney Goal (LTG) Pt will score 25/30 on FGA to show dec risk for falls and to show improved balance to be safe on her boat. 10/18-24 significnat improvement 11/14/20-improving LTG Duration 01/14/21 Assessment Summary Assessment Pt has made good progress since start of therapy but has reently started to plateau some but testing was done in PM today and pt does significantly better in AMs. She would beneift from cont PT to work on stability & balance and LE strength to improve her mobility. Physical Therapy Plan Frequency and Duration Frequency of Treatment 1-2x/wk Duration of Treatment 2 months Plan of Care Start Date 11/14/20 Plan of Care End Date 01/14/21 Therapeutic Interventions Therapeutic Interventions Aquatic Therapy,Balance Training,Gait Training,Home Exercise Program,Joint Mobilizations,Manual Therapy, Neuromuscular Re-education, Patient/Caregiver Education, Self-Care/Home Management,Soft Tissue Mobilization,Taping, Therapeutic Activities, Therapeutic Exercises Modalities Cold Pack/Ice Massage,Electric Stimulation,Hot Packs, Ultrasound Next Visit Focus/Plan Next Note Type Treatment Note Next Visit Plan cont to work on balance & manual for L knee ROM & hip ROM w/o leg pain, manual to LB to dec pain
--- NOTE | 2020-11-14 13:51 | PT.OPPOC ---
Physical, Occupational & Speech Therapy [facility] Current Diagnoses Pain in left thigh (11/14/20) Difficulty in walking, not elsewhere classified (11/14/20) Abnormal posture (11/14/20) Other symptoms and signs involving the musculoskeletal system (11/14/20) Weakness (11/14/20) Visit Care Team Role Provider Type Darin Tran MD Attending Provider Physician Primary Care Provider Referring Provider Specialty: Internal Medicine Address: [address] [place] [address], [address], [address] Email: [email or web address] Plan Of Care PT-OP-T Assessment and Plan Start: 09/18/20 11:30 Freq: Status: Active Protocol: Document 11/14/20 12:57 [facility] (Rec: 11/14/20 13:51 [facility] [id number]) Physical Therapy Assessment Goals pain Short Term Goal (STG) Pt will have full range of L knee without pain in order to allow greater ease of activities. 10/18-improved to 100 11/14-100deg STG Duration 12/15/20 Residential Instructor Goal (LTG) Pt will be able to go up/down stairs without pain & squat down without inc thigh and calf pain. LTG Duration achieved up/down from ground Short Term Goal (STG) Pt will feel comfortable walking around her yard without fear of falling. STG Duration achieved Residential Goal (LTG) Pt will be able to get up/down from the ground comfortably in order to do yard work activities. 11/14-still requires UE support LTG Duration 01/14/21 sit to stand Short Term Goal (STG) Pt will be able to do 5x sit to chisel grinder 12 sec to show inc strength and dec risk for falls. 10/18-improved 14 sec 11/14-no change STG Duration 12/15/20 Residential Goal (LTG) Pt will be able to do 13 sit to stands in 30 sec to show improved strength and dec risk for falls. 10/18-improved 11/14-no change LTG Duration 01/14/21 strength Short Term Goal (STG) Pt will be indep with HEP STG Duration achieved Residential Instructor Goal (LTG) Pt will score 4+/5 for all LE motions to make pt have greater ease with getting around. 11/14-imprvoing LTG Duration 01/14 FGA Impairment DGI , FGA1 Short Term Goal (STG) pt will score 20 or more on DGI to show dec risk for falls . STG Duration achieved Residential Goal (LTG) Pt will score 25/30 on FGA to show dec risk for falls and to show improved balance to be safe on her boat. 10/18- significnat improvement 11/14/20-improving LTG Duration 01/14/21 Assessment Summary Assessment Pt has made good progress since start of therapy but has reently started to plateau some but testing was done in PM today and pt does significantly better in AMs. She would beneift from cont PT to work on stability & balance and LE strength to improve her mobility. Physical Therapy Plan Frequency and Duration Frequency of Treatment 1-2x/wk Duration of Treatment 2 months Plan of Care Start Date 11/14/20 Plan of Care End Date 01/14/21 Therapeutic Interventions Therapeutic Interventions Aquatic Therapy,Balance Training,Gait Training,Home Exercise Program,Joint Mobilizations,Manual Therapy, Neuromuscular Re-education, Patient/Caregiver Education, Self-Care/Home Management,Soft Tissue Mobilization,Taping, Therapeutic Activities, Therapeutic Exercises Modalities Cold Pack/Ice Massage,Electric Stimulation,Hot Packs, Ultrasound Next Visit Focus/Plan Next Note Type Treatment Note Next Visit Plan cont to work on balance & manual for L knee ROM & hip ROM w/o leg pain, manual to LB to dec pain Plan of Care Dates Plan of Care Start Date 11/14/20 Plan of Care End Date 01/14/21 Electronically Signed by: Sylvia Christopher, PT 11/14/20 [id number] Please Sign and Return: I have reviewed this Plan of Care and certify that the skilled therapy services above are required to meet the patient?s needs. Physician Signature Date Printed Name and Credentials Clinical Instructor Signature Printed Name and Credentials
--- NOTE | 2020-11-17 09:46 | PT.OTN ---
Current Diagnoses Pain in left thigh (11/17/20) Difficulty in walking, not elsewhere classified (11/17/20) Abnormal posture (11/17/20) Other symptoms and signs involving the musculoskeletal system (11/17/20) Weakness (11/17/20) Physical Therapy Treatment Note PT-OP-A Visit Information Start: 09/18/20 11:30 Freq: Status: Active Protocol: Document 11/17/20 08:59 [facility] (Rec: 11/17/20 10:02 [facility] [id number]) Out-Patient Physical Therapy Visit Information Visit Information Visit Type Treatment Note Visit Note 08/09 Visit Start Time 09:00 Visit Stop Time 09:46 Total Visit Minutes 45 Visit Number 18 Number of ORNAMENTAL IRON WORKER APPRENTICE Visits 1 PT-OP-B Current Condition Start: 09/18/20 11:30 Freq: Status: Active Protocol: Document 09/18/20 15:23 [facility] (Rec: 09/18/20 16:07 [facility] [id number]) Current Condition History of Current Condition Onset Date 6 Weeks History of Current Condition Pt felt weak and that her legs wouldn't hold her up. Feels like legs are really wobby and it feels like she is on something uneven. She collapsed about 10 days ago. Testing was done for rheumatoid disease and all was negative. Pt reports at some point injured L HS & calf region where it hurts to bend. It gets better/worse. Pt reports 3 falls in past few weeks when stepping on RLE and now can no longer get off ground. Pt still is doing things like walking amile but slwoer than usual Works in yard very slowly to be careful of RLE for a couple hours. Pt reports LBP but if she sits down it goes away. Pt had just finished PT 1 month prior to this decline and was doing well until the end of Jun. She does not know what started this. She has had an ongoing month issue that she has been on steroid ointment & antibiotics and pathology report was benign. She takes her last dose of antibiotic today and mouth is much better . Pt reports if she sits fo rlong periords and feels really wobbly when she stands up. Treatment Goals Patient/Caregiver Goals Yard work, no falls, be able to go out on her boat in October PT-OP-C Subjective Start: 09/18/20 11:30 Freq: Status: Active Protocol: Document 11/17/20 08:59 [facility] (Rec: 11/17/20 10:02 [facility] [id number]) OP-PT Subjective Patient Comments Patient Comments Pt stated doing so so today, better since took easy yesterday but is getting frustrated not getting significantly better. Seeing Dr hCavez on Friday for assessment. I want to work on balance as well, not doing as well as would like . PT-OP-D Balance Start: 09/18/20 11:30 Freq: Status: Active Protocol: Document 09/18/20 15:23 [facility] (Rec: 09/18/20 16:07 [facility] [id number]) Balance Tests Yee Balance Test Yee Balance Test Score 44 PT-OP-E Functional Tests Start: 09/18/20 11:30 Freq: Status: Active Protocol: Document 11/14/20 12:57 [facility] (Rec: 11/14/20 13:51 [facility] [id number]) Functional Tests 30 Second Sit to Stand Test Score 9 Comments leggett chair Five Times Sit to Stand Test Score 14 sec Comments leggett Functional Gait Assessment Score 23 PT-OP-F Manual Assessment Start: 09/18/20 11:30 Freq: Status: Active Protocol: Document 09/18/20 15:23 [facility] (Rec: 09/18/20 16:07 [facility] [id number]) Manual Assessments Soft Tissue Assessment Soft Tissue Mobility Assessment tightness and tenderness into lat HS & calf & ITB Joint Mobility Assessment Joint Mobility Assessment L knee ROM: 12-88 pain flex R knee ROM:12-125 PT-OP-G Mobility & Gait Start: 09/18/20 11:30 Freq: Status: Active Protocol: Document 09/18/20 15:23 [facility] (Rec: 09/18/20 16:07 [facility] [id number]) OP Gait Assessment Comments Gait Comments Inc lat leaning w/dec push off B, unstable when first standing from surfaces PT-OP-M Strength Start: 09/18/20 11:30 Freq: Status: Active Protocol: Document 11/14/20 12:57 [facility] (Rec: 11/14/20 13:51 [facility] [id number]) Hip Strength Hip Manual Muscle Testing Right Flexion (L2) 4 Good Extension (S1) 3+ Fair+ Abduction 4 Good Adduction 4- Good- External Rotation 4- Good- Internal Rotation 4+ Good+ Left Flexion (L2) 3+ Fair+ Extension (S1) 3+ Fair+ Abduction 4- Good- Adduction 4- Good- External Rotation 4- Good- Internal Rotation 4+ Good+ Knee Strength Knee Manual Muscle Testing Right Flexion (S2) 5 Normal Extension (L3) 5 Normal Left Flexion (S2) 4 Good Extension (L3) 5 Normal Ankle/Foot Strength Ankle and Foot Manual Muscle Testing Left Dorsiflexion (L4) 5 Normal Plantarflexion (S1) 5 Normal Right Dorsiflexion (L4) 5 Normal Plantarflexion (S1) 5 Normal Comments seated PF tested B PT-OP-Q Treatments Start: 09/18/20 11:30 Freq: Status: Active Protocol: Document 11/17/20 08:59 [facility] (Rec: 11/17/20 10:02 [facility] [id number]) Therapeutic Exercises Supine Exercises sciatic nerve floss Supine Exercise Name w/ ankle pump Side left Reps/Minutes x10 Comments good tolerance decrease HS tightness while assisting nerve mobility pelvic tilt Supine Exercise Name focus on no pull up of shoulders Reps/Minutes 10 Comments cues for breathing LTR Side bilateral Reps/Minutes 10 oneil test Supine Exercise Name stretch Side left Reps/Minutes 30 sec Piriformis Stretch Supine Exercise Name hip IR/ ER stretch Side bilateral Reps/Minutes x60 sec bridge Side bilateral Equipment Used towel roll under L foot, inhibit calf recruitment Reps/Minutes x10 3 sec hold Comments arms across chest, cued HS Supine Exercise Name HS stretch Side bilateral Equipment Used belt Other Exercises self STMs Other Exercise Name tennis ball ES, gluts Side left Equipment Used back to wall rolling Reps/Minutes 2 min Manual Therapy Treatment Soft Tissue Mobilization ITB Body Location L Vastus lateralis > ITB Mobilization Type Rolling,Strumming,Sustained Pressure,Trigger Point Release Intensity/Depth Moderate Body Position Hooklying Comments manual, MWM SAQ glutes Body Location jena Mobilization Type Sustained Pressure,Trigger Point Release Intensity/Depth Moderate Body Position Sidelying QL, paraspinals, ES Body Location L Mobilization Type Rolling,Sustained Pressure Intensity/Depth Moderate Body Position Sidelying Manual Traction L leg pull Details manual distraction hip/ LS Body Position Hooklying Reps/Duration 30 x3 Comments good feedback response Neuro Re-Education Treatment Balance Activities EC Details Discussed for HEP Surface firm Reps/Duration 5 min Comments NBOS, STAGGERED STANCE B 1. stationary stance 2. head turns 3. EC NBOS only 30 sec PT-OP-T Assessment and Plan Start: 09/18/20 11:30 Freq: Status: Active Protocol: Document 11/17/20 08:59 [facility] (Rec: 11/17/20 10:02 [facility] [id number]) Physical Therapy Assessment Goals pain Short Term Goal (STG) Pt will have full range of L knee without pain in order to allow greater ease of activities. 10/18-improved to 100 11/14-100deg STG Duration 12/15/20 Client Specialist Goal (LTG) Pt will be able to go up/down stairs without pain & squat down without inc thigh and calf pain. LTG Duration achieved up/down from ground Short Term Goal (STG) Pt will feel comfortable walking around her yard without fear of falling. STG Duration achieved Skilled Nursing Goal (LTG) Pt will be able to get up/down from the ground comfortably in order to do yard work activities. 11/14-still requires UE support LTG Duration 01/14/21 sit to stand Short Term Goal (STG) Pt will be able to do 5x sit to urban gardening specialist 12 sec to show inc strength and dec risk for falls. 10/18-improved 14 sec 11/14-no change STG Duration 12/15/20 Client Specialist Goal (LTG) Pt will be able to do 13 sit to stands in 30 sec to show improved strength and dec risk for falls. 10/18-improved 11/14-no change LTG Duration 01/14/21 strength Short Term Goal (STG) Pt will be indep with HEP STG Duration achieved Client Specialist Goal (LTG) Pt will score 4+/5 for all LE motions to make pt have greater ease with getting around. 11/14-imprvoing LTG Duration 01/14 FGA Impairment DGI 16/24, FGA12/30 Short Term Goal (STG) pt will score 20 or more on DGI to show dec risk for falls . STG Duration achieved Skilled Nursing Goal (LTG) Pt will score 25/30 on FGA to show dec risk for falls and to show improved balance to be safe on her boat. 10/18-24 significnat improvement 11/14/20-improving LTG Duration 01/14/21 Assessment Summary Assessment Pt responded well, decreased point specific pain over mid- distal L vastus lateralis, performed self STMs with tennis ball at wall with good feedback helpful. Reviewed ball rolling ES and gluts for self relief at wall with good responses. Reviewed HEP supine with TA facilitation, cued for slow movement to allow con / eccentric control during bridge and SLR no pain. Incorporated standing balance with good self postural and wt shifting corrections NBOS and stagger stance for safety added to HEP, good understanding of back to wall and chair front. Physical Therapy Plan Frequency and Duration Frequency of Treatment 1-2x/wk Duration of Treatment 2 months Plan of Care Start Date 11/14/20 Plan of Care End Date 01/14/21 Therapeutic Interventions Therapeutic Interventions Aquatic Therapy,Balance Training,Gait Training,Home Exercise Program,Joint Mobilizations,Manual Therapy, Neuromuscular Re-education, Patient/Caregiver Education, Self-Care/Home Management,Soft Tissue Mobilization,Taping, Therapeutic Activities, Therapeutic Exercises Modalities Cold Pack/Ice Massage,Electric Stimulation,Hot Packs, Ultrasound Next Visit Focus/Plan Next Note Type Treatment Note Next Visit Plan Assess response to manual and self STMs, core HEP and balance. PT POC: cont to work on balance & manual for L knee ROM & hip ROM w/o leg pain, manual to LB to dec pain
--- NOTE | 2020-11-21 09:48 | PT.OTN ---
Current Diagnoses Pain in left thigh (11/21/20) Difficulty in walking, not elsewhere classified (11/21/20) Abnormal posture (11/21/20) Other symptoms and signs involving the musculoskeletal system (11/21/20) Weakness (11/21/20) Physical Therapy Treatment Note PT-OP-A Visit Information Start: 09/18/20 11:30 Freq: Status: Active Protocol: Document 11/21/20 09:08 [facility] (Rec: 11/21/20 09:47 [facility] [id number]) Out-Patient Physical Therapy Visit Information Visit Information Visit Type Treatment Note Visit Note 09/06 Visit Start Time 09:06 Visit Stop Time 09:44 Total Visit Minutes 38 Visit Number 19 Number of ELECTRIC SYSTEM OPERATOR Visits 0 PT-OP-B Current Condition Start: 09/18/20 11:30 Freq: Status: Active Protocol: Document 09/18/20 15:23 [facility] (Rec: 09/18/20 16:07 [facility] [id number]) Current Condition History of Current Condition Onset Date 6 Weeks History of Current Condition Pt felt weak and that her legs wouldn't hold her up. Feels like legs are really wobby and it feels like she is on something uneven. She collapsed about 10 days ago. Testing was done for rheumatoid disease and all was negative. Pt reports at some point injured L HS & calf region where it hurts to bend. It gets better/worse. Pt reports 3 falls in past few weeks when stepping on RLE and now can no longer get off ground. Pt still is doing things like walking amile but slwoer than usual Works in yard very slowly to be careful of RLE for a couple hours. Pt reports LBP but if she sits down it goes away. Pt had just finished PT 1 month prior to this decline and was doing well until the end of Jun. She does not know what started this. She has had an ongoing month issue that she has been on steroid ointment & antibiotics and pathology report was benign. She takes her last dose of antibiotic today and mouth is much better . Pt reports if she sits fo rlong periords and feels really wobbly when she stands up. Treatment Goals Patient/Caregiver Goals Yard work, no falls, be able to go out on her boat in October PT-OP-C Subjective Start: 09/18/20 11:30 Freq: Status: Active Protocol: Document 11/21/20 09:08 [facility] (Rec: 11/21/20 09:47 [facility] [id number]) OP-PT Subjective Patient Comments Patient Comments reorts frustrtion tht she hs not made it fully back to her normal. PT-OP-D Balance Start: 09/18/20 11:30 Freq: Status: Active Protocol: Document 09/18/20 15:23 [facility] (Rec: 09/18/20 16:07 [facility] [id number]) Balance Tests Yee Balance Test Yee Balance Test Score 44 PT-OP-E Functional Tests Start: 09/18/20 11:30 Freq: Status: Active Protocol: Document 11/14/20 12:57 [facility] (Rec: 11/14/20 13:51 [facility] [id number]) Functional Tests 30 Second Sit to Stand Test Score 9 Comments silver chair Five Times Sit to Stand Test Score 14 sec Comments silver Functional Gait Assessment Score 23 PT-OP-F Manual Assessment Start: 09/18/20 11:30 Freq: Status: Active Protocol: Document 09/18/20 15:23 [facility] (Rec: 09/18/20 16:07 [facility] [id number]) Manual Assessments Soft Tissue Assessment Soft Tissue Mobility Assessment tightness and tenderness into lat HS & calf & ITB Joint Mobility Assessment Joint Mobility Assessment L knee ROM: 12-88 pain flex R knee ROM:12-125 PT-OP-G Mobility & Gait Start: 09/18/20 11:30 Freq: Status: Active Protocol: Document 09/18/20 15:23 [facility] (Rec: 09/18/20 16:07 [facility] [id number]) OP Gait Assessment Comments Gait Comments Inc lat leaning w/dec push off B, unstable when first standing from surfaces PT-OP-M Strength Start: 09/18/20 11:30 Freq: Status: Active Protocol: Document 11/14/20 12:57 [facility] (Rec: 11/14/20 13:51 [facility] [id number]) Hip Strength Hip Manual Muscle Testing Right Flexion (L2) 4 Good Extension (S1) 3+ Fair+ Abduction 4 Good Adduction 4- Good- External Rotation 4- Good- Internal Rotation 4+ Good+ Left Flexion (L2) 3+ Fair+ Extension (S1) 3+ Fair+ Abduction 4- Good- Adduction 4- Good- External Rotation 4- Good- Internal Rotation 4+ Good+ Knee Strength Knee Manual Muscle Testing Right Flexion (S2) 5 Normal Extension (L3) 5 Normal Left Flexion (S2) 4 Good Extension (L3) 5 Normal Ankle/Foot Strength Ankle and Foot Manual Muscle Testing Left Dorsiflexion (L4) 5 Normal Plantarflexion (S1) 5 Normal Right Dorsiflexion (L4) 5 Normal Plantarflexion (S1) 5 Normal Comments seated PF tested B PT-OP-Q Treatments Start: 09/18/20 11:30 Freq: Status: Active Protocol: Document 11/21/20 09:08 [facility] (Rec: 11/21/20 09:47 [facility] [id number]) Cardio Equipment Recumbent Elliptical (Predictify) Duration (Minutes) 7 Resistance 7 Seat Position 7 Gym Equipment Shuttle Recovery Bilateral Squats Details cueing to have feet apart and avoid knees knocking Resistance 125# Shuttle Recovery Platform Unstable Reps/Time 2x15 Shuttle Balance red clips Comments fwd & side: WBOS, NBOS fwd: staggered B Therapeutic Exercises Standing Exercises knee flex Side left Equipment Used 5# Reps/Minutes 15 Manual Therapy Treatment Soft Tissue Mobilization glutes Body Location jena Mobilization Type Sustained Pressure,Trigger Point Release Intensity/Depth Moderate Body Position Prone QL, paraspinals, ES Body Location L Mobilization Type Rolling,Sustained Pressure Intensity/Depth Moderate Body Position Sidelying Neuro Re-Education Treatment Balance Activities marching steps with hold in SLS Details toe taps to 12 in step w/5# B Reps/Duration 15 Stepping Details over 6 hurdles w/5# B Comments 8x fwd, 2x side B PT-OP-T Assessment and Plan Start: 09/18/20 11:30 Freq: Status: Active Protocol: Document 11/21/20 09:08 [facility] (Rec: 11/21/20 09:47 [facility] [id number]) Physical Therapy Assessment Goals pain Short Term Goal (STG) Pt will have full range of L knee without pain in order to allow greater ease of activities. 10/18-improved to 100 11/14-100deg STG Duration 12/15/20 Long-Term Goal (LTG) Pt will be able to go up/down stairs without pain & squat down without inc thigh and calf pain. LTG Duration achieved up/down from ground Short Term Goal (STG) Pt will feel comfortable walking around her yard without fear of falling. STG Duration achieved Long-Term Goal (LTG) Pt will be able to get up/down from the ground comfortably in order to do yard work activities. 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 10/18-improved 14 sec 11/14-no change STG Duration 12/15/20 Long-Term Goal (LTG) Pt will be able to do 13 sit to stands in 30 sec to show improved strength and dec risk for falls. 10/18-improved 11/14-no change LTG Duration 01/14/21 strength Short Term Goal (STG) Pt will be indep with HEP STG Duration achieved Pararescue Craftsman Goal (LTG) Pt will score 4+/5 for all LE motions to make pt have greater ease with getting around. 11/14-imprvoing LTG Duration 01/14 FGA Impairment DGI 16/24, FGA12/30 Short Term Goal (STG) pt will score 20 or more on DGI to show dec risk for falls . STG Duration achieved Long-Term Goal (LTG) Pt will score 25/30 on FGA to show dec risk for falls and to show improved balance to be safe on her boat. 10/18- significnat improvement 11/14/20-improving LTG Duration 01/14/21 Assessment Summary Assessment Pt cont to imrpove with balance and shows good strength during exercises but does not that legs give out and she just doesn' feel as strong as she used to. Physical Therapy Plan Frequency and Duration Frequency of Treatment 1-2x/wk Duration of Treatment 2 months Plan of Care Start Date 11/14/20 Plan of Care End Date 01/14/21 Next Visit Focus/Plan Next Note Type Treatment Note Next Visit Plan cont to work on balance & manual for L knee ROM & hip ROM w/o leg pain, manual to LB to dec pain
--- NOTE | 2021-02-22 17:59 | PT.OPDS ---
Current Diagnoses Pain in left thigh (11/21/20) Difficulty in walking, not elsewhere classified (11/21/20) Abnormal posture (11/21/20) Other symptoms and signs involving the musculoskeletal system (11/21/20) Weakness (11/21/20) Visit Care Team Role Provider Type Darin Tran MD Attending Provider Physician Primary Care Provider Referring Provider Specialty: Internal Medicine Address: [address] [place] [address], [address], [address] Email: [email or web address] Visit Number Visit Number 19 Discharge Summary PT-OP-B Current Condition Start: 09/18/20 11:30 Freq: Status: Active Protocol: Document 09/18/20 15:23 [facility] (Rec: 09/18/20 16:07 [facility] [id number]) Current Condition History of Current Condition Onset Date 6 Weeks History of Current Condition Pt felt weak and that her legs wouldn't hold her up. Feels like legs are really wobby and it feels like she is on something uneven. She collapsed about 10 days ago. Testing was done for rheumatoid disease and all was negative. Pt reports at some point injured L HS & calf region where it hurts to bend. It gets better/worse. Pt reports 3 falls in past few weeks when stepping on RLE and now can no longer get off ground. Pt still is doing things like walking amile but slwoer than usual Works in yard very slowly to be careful of RLE for a couple hours. Pt reports LBP but if she sits down it goes away. Pt had just finished PT 1 month prior to this decline and was doing well until the end of Jun. She does not know what started this. She has had an ongoing month issue that she has been on steroid ointment & antibiotics and pathology report was benign. She takes her last dose of antibiotic today and mouth is much better . Pt reports if she sits fo rlong periords and feels really wobbly when she stands up. Treatment Goals Patient/Caregiver Goals Yard work, no falls, be able to go out on her boat in October PT-OP-C Subjective Start: 09/18/20 11:30 Freq: Status: Active Protocol: Document 11/21/20 09:08 [facility] (Rec: 11/21/20 09:47 [facility] [id number]) OP-PT Subjective Patient Comments Patient Comments reorts frustrtion tht she hs not made it fully back to her normal. PT-OP-D Balance Start: 09/18/20 11:30 Freq: Status: Active Protocol: Document 09/18/20 15:23 [facility] (Rec: 09/18/20 16:07 [facility] [id number]) Balance Tests Yee Balance Test Yee Balance Test Score 44 PT-OP-E Functional Tests Start: 09/18/20 11:30 Freq: Status: Active Protocol: Document 11/14/20 12:57 [facility] (Rec: 11/14/20 13:51 [facility] [id number]) Functional Tests 30 Second Sit to Stand Test Score 9 Comments silver chair Five Times Sit to Stand Test Score 14 sec Comments silver Functional Gait Assessment Score 23 PT-OP-F Manual Assessment Start: 09/18/20 11:30 Freq: Status: Active Protocol: Document 09/18/20 15:23 [facility] (Rec: 09/18/20 16:07 [facility] [id number]) Manual Assessments Soft Tissue Assessment Soft Tissue Mobility Assessment tightness and tenderness into lat HS & calf & ITB Joint Mobility Assessment Joint Mobility Assessment L knee ROM: 12-88 pain flex R knee ROM:12-125 PT-OP-G Mobility & Gait Start: 09/18/20 11:30 Freq: Status: Active Protocol: Document 09/18/20 15:23 [facility] (Rec: 09/18/20 16:07 [facility] [id number]) OP Gait Assessment Comments Gait Comments Inc lat leaning w/dec push off B, unstable when first standing from surfaces PT-OP-M Strength Start: 09/18/20 11:30 Freq: Status: Active Protocol: Document 11/14/20 12:57 [facility] (Rec: 11/14/20 13:51 [facility] [id number]) Hip Strength Hip Manual Muscle Testing Right Flexion (L2) 4 Good Extension (S1) 3+ Fair+ Abduction 4 Good Adduction 4- Good- External Rotation 4- Good- Internal Rotation 4+ Good+ Left Flexion (L2) 3+ Fair+ Extension (S1) 3+ Fair+ Abduction 4- Good- Adduction 4- Good- External Rotation 4- Good- Internal Rotation 4+ Good+ Knee Strength Knee Manual Muscle Testing Right Flexion (S2) 5 Normal Extension (L3) 5 Normal Left Flexion (S2) 4 Good Extension (L3) 5 Normal Ankle/Foot Strength Ankle and Foot Manual Muscle Testing Left Dorsiflexion (L4) 5 Normal Plantarflexion (S1) 5 Normal Right Dorsiflexion (L4) 5 Normal Plantarflexion (S1) 5 Normal Comments seated PF tested B PT-OP-T Assessment and Plan Start: 09/18/20 11:30 Freq: Status: Active Protocol: Document 02/22/21 17:59 [facility] (Rec: 02/22/21 17:59 [facility] [id number]) Physical Therapy Assessment Assessment Summary Assessment Pt last seen in October and planned to talk w/pain re: if she should return to PT and did not call back to schedule further. At this time DC d/t no longer attending> She did make progress while attending PT. Physical Therapy Plan Discharge Physical Therapy Discharge Reasons No Longer Attending PT
== END 2021-02-23 07:45 | disposition home or self-care (01) ==
LOC: PHYS 09:00
PROVIDERS: PCP Student in an Organized Health Care Education/Training Program; Referring Provider Student in an Organized Health Care Education/Training Program; Visit Provider Student in an Organized Health Care Education/Training Program
DX: R29.898 Other symptoms and signs involving the musculoskeletal system (principal); M79.652 Pain in left thigh; R53.1 Weakness; R29.3 Abnormal posture; R26.2 Difficulty in walking, not elsewhere classified
CPT/HCPCS: 97110; 97112; 97116; 97140; 97163

== ENCOUNTER → 2020-12-12 08:53 | Outpatient (CLI) | payer MEDICARE, OTHER, SELFPAY ==
[2020-10-25 11:27] VITALS: BMI 24.0
[2020-12-12 14:06] LABS: COVID19 -Nasal RAPID Negative (Negative)
== END ==
PROVIDERS: PCP Student in an Organized Health Care Education/Training Program; Referring Provider Physical Medicine & Rehabilitation; Visit Provider Physical Medicine & Rehabilitation
DX: Z20.822 Contact with and (suspected) exposure to COVID-19 (principal)
CPT/HCPCS: 87635; C9803

== ENCOUNTER 2020-12-14 12:11 | Outpatient (CLI) | payer MEDICARE, OTHER, SELFPAY ==
[2020-10-25 11:27] VITALS: BMI 24.0
[2020-12-14] VITALS (9 sets, daily range): BP systolic 106–153; BP diastolic 58–73; PULSE 61–69; RESP 12–25; O2SAT 95–100
--- NOTE | 2020-12-14 12:12 | DI.RAD.S_ITS ---
PROCEDURE: PAIN L/S TRANSFORAM INJECT ALHAJI COMPARISON: [facility], CR, XR LUMBAR SPINE MIN 4V, 10/26/2020, 12:18. [facility], MR, MR LUMBAR SPINE WO CON, 10/18/2020, 14:27. INDICATIONS: SPONDYLOSIS FINDINGS: Fluoroscopic spot filming was performed to verify placement of a spinal needles on both sides at the L3-L4 level, as labeled on the films. Appropriate location of the needle tips was confirmed by injection of iodinated contrast. IMPRESSION: Intraprocedural examination within normal limits. Dictated by: Joshua Mustafa M.D. on 12/14/2020 at 13:41 Approved by: Joshua Mustafa M.D. on 12/14/2020 at 13:41
[2020-12-14] MEDS: MIDAZOLAM 5 MG/5 ML VIAL IV (13:00)
[2020-12-14] MEDS: fentaNYL 100 MCG/2 ML INJ 50 MCG IV (13:00)
[2020-12-14] MEDS: IOPAMIDOL 15 ML VIAL 3 ML INJ (13:07)
[2020-12-14] MEDS: BUPIVACAINE 0.25% (PF) VIAL 2 ML INJ (13:07)
[2020-12-14] MEDS: BETAMETHASONE 30 MG/5 ML MDV 12 MG INJ (13:07)
[2020-12-14] MEDS: DEXAMETHASONE 10 MG/ML VIAL 20 MG INJ (13:07)
--- NOTE | 2020-12-14 13:22 | PM.PROC.IR.1 ---
Date/Time/Diagnoses Date of procedure: 12/14/20 Time of procedure: 13:22 Pre-procedure diagnosis: 1. FORAMINAL STENOSIS WITH LE SYMPTOMS Post-procedure diagnosis: same Procedure Notes Procedure: 1. FLUOROSCOPICALLY GUIDED CONTRAST CONTROLLED TRANSFORAMINAL EPIDURAL STEROID INJECTION - BILATERAL L3/4 TFESI Indications: Sidra is referred by Dr. Tran for treatment of Foraminal Stenosis with bilateral LE Symptoms Physician: Merrill Wang Total Fluoroscopy time (seconds): 15 Total sedation minutes: 13 Complications: none Procedure in detail & Post-procedure care: FINDINGS Foraminal Nerve Root Compression secondary to disc disease and facet hypertrophy DESCRIPTION OF PROCEDURE Following review of allergy and review of potential side effects and complications, including, but not necessarily limited to, infection, allergic reaction, local tissue breakdown, stroke, temporary or permanent nerve injury, paralysis, and possible , the patient indicated that the patient understood and agreed to proceed. An informed consent document was signed by the patient, witnessed by a nurse, and placed in the patient's chart. Additionally, other treatment options including medications, modalities, and physical therapy were reviewed with the patient. After review of previous anaesthesic history and IV conscious sedation the patient was deemed safe to proceed with today?s procedure with IV conscious sedation as ASA class II designation. Safety time-out was performed to confirm patient ID, procedure to be performed and site of procedure. IV sedation was accomplished with a combination of 2mg of Versed and 50mcg of Fentanyl was administered by the RN after DO order, titrated to patient comfort during the course of the procedure while the patient remained responsive to all verbal commands In the prone position following sterile prep and drape of the lumbar region, the right L3/4 posterior neuroforamen was identified fluoroscopically. The skin was anesthetized via a 25-gauge 1.5-inch needle with 1% lidocaine solution. At this point, a 25-gauge 3.5-inch spinal needle was atraumatically introduced and advanced under fluoroscopic guidance through the posterior right L3/4 neuroforamen to approximately the anterior aspect of the canal. Depth was confirmed on lateral view. Following negative aspiration, injection of approximately 1.5cc of Isovue 200 under live fluoroscopy in the AP view confirmed excellent flow along the nerve root, into the epidural space without vascular or intrathecal uptake observed Radiological data, including multiple fluoroscopic views of the lumbosacral spine, reveal a spinal needle at the right L3/4 posterior neuroforamen. Subsequent views show flow of contrast material flowing superiorly and inferiorly along the nerve root confirming epidural flow. Subsequently, a test dose of 1.5cc of 1% lidocaine solution was administered and patient was observed for two minutes for signs or symptoms of complications, including abdominal pain, shortness of breath, bilateral upper or lower extremity weakness, nausea and vomiting, prior to steroid injection. At this point, a total of 3cc or 20mg of dexamethasone and 6mg betamethasone was injected without incident. Attention was then refocused to the left L3/4 level where the identical procedure was replicated. The procedure tolerated the procedure well without signs or symptoms of complications prior to transfer to the recovery area continued monitoring without incident. The patient was then transferred to the recovery area where they were observed for an appropriate time after the injection. The patient reported a VAS score of 7 prior to the procedure and a post-procedure VAS of 0. POST OP INSTRUCTIONS The patient was provided a Pain Log to continue to record their response to the target-specific procedure prior to follow-up visit with their referring physician. Additionally, specific post-injection care instructions and a contact number to our office were provided if concerns arise regarding possible complications associated with the procedure are suspected.
== END 2020-12-14 13:40 | disposition home or self-care (01) ==
PROVIDERS: PCP Student in an Organized Health Care Education/Training Program; Referring Provider Physical Medicine & Rehabilitation; Visit Provider Physical Medicine & Rehabilitation
DX: M48.061 Spinal stenosis, lumbar region without neurogenic claudication (principal); M51.16 Intervertebral disc disorders with radiculopathy, lumbar region
CPT/HCPCS: 64483; 99152; J0702; J1100; J2250; J3010

== ENCOUNTER → 2021-04-09 10:21 | Outpatient (CLI) | payer MEDICARE, OTHER, SELFPAY ==
[2020-10-25 11:27] VITALS: BMI 24.0
[2021-04-09 15:53] LABS: COVID19 -Nasal RAPID Negative (Negative)
== END ==
PROVIDERS: PCP Student in an Organized Health Care Education/Training Program; Visit Provider Physical Medicine & Rehabilitation
DX: Z20.822 Contact with and (suspected) exposure to COVID-19 (principal)
CPT/HCPCS: 87635; C9803

== ENCOUNTER 2021-04-10 09:31 | Outpatient (CLI) | payer MEDICARE, OTHER, SELFPAY ==
[2020-10-25 11:27] VITALS: BMI 24.0
[2021-04-10] VITALS (7 sets, daily range): BP systolic 98–153; BP diastolic 51–74; PULSE 56–69; RESP 12–22; TEMP 36.8; O2SAT 94–100
--- NOTE | 2021-04-10 09:32 | DI.RAD.S_ITS ---
PROCEDURE: PAIN L INTERLAMINAR/CAUDAL INJ INDICATIONS: SPINAL STENOSIS COMPARISON: [facility], XA, PAIN L/S TRANSFORAM INJECT ALHAJI, 12/14/2020, 13:08. TECHNIQUE: Fluoroscopic images were obtained during a procedure and submitted for interpretation following the completion of the procedure. FINDINGS: On these intraprocedural fluoroscopic images, there is a spinal needle seen entering the sacral canal from inferiorly. The position of the tip of needle is confirmed by injection of a small amount of iodinated contrast. IMPRESSION: Intraprocedural images within normal limits. Dictated by: Joshua Mustafa M.D. on 04/10/2021 at 10:35 Approved by: Joshua Mustafa M.D. on 04/10/2021 at 10:36
[2021-04-10] MEDS: fentaNYL 100 MCG/2 ML INJ 50 MCG IV (10:45)
[2021-04-10] MEDS: MIDAZOLAM 5 MG/5 ML VIAL IV (10:45)
[2021-04-10] MEDS: IOPAMIDOL 15 ML VIAL 3 ML INJ (10:51)
[2021-04-10] MEDS: DEXAMETHASONE 10 MG/ML VIAL 20 MG INJ (10:51)
[2021-04-10] MEDS: BUPIVACAINE 0.25% (PF) VIAL 2 ML INJ (10:51)
[2021-04-10] MEDS: methylPREDNISolone acetate 80 MG/ML VIAL INJ (10:52)
--- NOTE | 2021-04-10 11:03 | P.PCN_ITS ---
Date/Time/Diagnoses Date of procedure: 04/10/21 Time of procedure: 11:03 Pre-procedure diagnosis: 1. MULTILEVEL SPINAL STENOSIS 2. POST FUSION SYNDROME Post-procedure diagnosis: same Procedure Notes Procedure: 1. FLUOROSCOPICALLY GUIDED CONTRAST CONTROLLED CAUDAL EPIDURAL STEROID INJECTION, Indications: Porsche Valente is referred by Dr. Tran for treatment of Multilevel Stenosis Physician: Merrill Wang Total Fluoroscopy time (seconds): 28 Total sedation minutes: 13 Complications: none Procedure in detail & Post-procedure care: FINDINGS Multilevel Stenosis S/p Lami/Fusion Syndrome DESCRIPTION OF PROCEDURE Fluoroscopically guided, contrast controlled caudal epidural steroid injection with Conscious Sedation Following review of allergy and review of potential side effects and c omplications, including but not necessarily limited to infection, allergic reaction, local tissue breakdown, temporary or permanent nerve injury, stroke, paralysis, and possible , the patient indicated that they understood and agreed to proceed. An informed consent document was signed by the patient, witnessed by a nurse, and placed in the patient's chart. Additionally, other treatment options including medications, modalities, and physical therapy were reviewed with the patient. After review of previous anaesthesic history and IV conscious sedation the patient was deemed safe to proceed with today?s procedure with IV conscious sedation as ASA class II designation. Safety time-out was performed to confirm patient ID, procedure to be performed and site of procedure. IV sedation was accomplished with a combination of 2mg of Versed and 50mcg of Fentanyl administered by the RN after DO order, titrated to patient comfort during the course of the procedure while the patient remained responsive to all verbal commands In the prone position, following sterile prep and drape of the lumbar region, the sacral hiatus was identified fluoroscopically. The skin was anesthetized via a 25-gauge, 1.5-inch needle with approximately 2cc of 1% lidocaine solution. At this point, a 25-gauge, 3inch needle was atraumatically introduced and advanced under fluoroscopic guidance to the corresponding sacral hiatus and entering the sacral canal. Following negative aspiration, injection of approximately 0.3cc of Isovue 300 confirmed interarticular placement without vascular uptake. Radiological data, including multiple fluoroscopic views of the lumbosacral spine, reveal a spinal needle in the sacral canal through the sacral hiatus. Subsequent views show flow of contrast material superiorly and inferiorly in the sacral canal without vascular or intrathecal uptake. At this point, a total of 6cc including 2cc or 20mg of dexamethasone, 1cc or 80mg depo medrol and 3cc of 1% lidocaine solution was injected without complication. The patient tolerated the procedure well without signs or symptoms of complications prior to transfer to the recovery area continued monitoring with out incident. The patient was then transferred to the recovery area where they were observed for an appropriate period of time after the injection. The patient reported a VAS score of 8 prior to the procedure and a post-procedure VAS of 1. POST OP INSTRUCTIONS The patient was provided a Pain Log to continue to record their response to the target-specific procedure prior to their follow-up visit with the referring physician. Additionally, specific post-injection care instructions and a contact number to our office were provided if concerns arise regarding possible com plications associated with the procedure are suspected.
== END 2021-04-10 11:32 | disposition home or self-care (01) ==
LOC: RAD 09:32
PROVIDERS: PCP Student in an Organized Health Care Education/Training Program; Referring Provider Physical Medicine & Rehabilitation; Visit Provider Physical Medicine & Rehabilitation
DX: M48.061 Spinal stenosis, lumbar region without neurogenic claudication (principal); M96.1 Postlaminectomy syndrome, not elsewhere classified; Z98.1 Arthrodesis status
CPT/HCPCS: 62323; 99152; J1040; J1100; J2250; J3010

== ENCOUNTER 2021-09-07 10:30 | Outpatient (RCR) | payer MEDICARE, OTHER, SELFPAY ==
[2020-10-25 11:27] VITALS: BMI 24.0
--- NOTE | 2021-07-30 15:14 | PT.OIE ---
Current Diagnoses Adolescent idiopathic scoliosis, lumbar region (07/30/21) Spinal stenosis, lumbar region without neurogenic claudication (07/30/21) Muscle weakness (generalized) (07/30/21) Other abnormalities of gait and mobility (07/30/21) Other symptoms and signs involving the musculoskeletal system (07/30/21) Past Medical History (Last Updated 06/03/21 @ 15:45 by Darin Tran MD) Allergies (~1999) Chicken pox (~1949) Colon polyps (~2016) Deep vein thrombosis (~2010) Diverticular disease (~2010) Essential hypertension (~2004) Foraminal stenosis of lumbar region GERD (gastroesophageal reflux disease) (~2004) Headache Hearing loss (~2008) Heart failure (~2010) Heart stopped beating (~2010) History of colectomy (~2010) History of dilation and curettage History of kidney surgery (~2010) History of pulmonary embolism (~2010) History of surgery (~1966) History of tonsillectomy and adenoidectomy History of tubal ligation Hypothyroid Infertility (~1966) Lichen planus skilled nursing current use of anticoagulant Measles (~1949) Mumps Osteoporosis Paroxysmal A-fib (~2010) Pertussis (~1954) Rheumatoid arthritis Rib fractures Rubella (~1949) S/P devora (~1992) S/P exploratory laparotomy S/P partial colectomy (~2010) Scoliosis (~1954) Spondylisthesis Tenosynovitis of finger TGA (transient global amnesia) (~2014) Vision disorder Past Surgical History (Last Reviewed 03/14/21 @ 13:53 by Merrill Wang DO) Anesthesia Cataracts, bilateral (~2013) History of colectomy (~2010) History of dilation and curettage History of kidney surgery (~2010) History of surgery (~1966) History of tonsillectomy and adenoidectomy History of tubal ligation S/P devora (~1992) S/P exploratory laparotomy S/P partial colectomy (~2010) Strabismus Visit Care Team Role Provider Type Darin Tran MD Family Provider Physician Primary Care Provider Specialty: Internal Medicine Address: [address] [place] [address], [address], [facility] Email: [email or web address] Merrill Wang DO Attending Provider Physician Referring Provider Specialty: Physiatry Pain Management Address: [address] [place], [address] Email: [email or web address] Physical Therapy Initial Evaluation PT-OP-A Visit Information Start: 07/30/21 14:34 Freq: Status: Active Protocol: Document 07/30/21 10:30 DCW (Rec: 07/30/21 14:49 DCW [id number]) Out-Patient Physical Therapy Visit Information Visit Information Visit Type Initial Evaluation Visit Start Time 10:30 Visit Stop Time 11:15 Total Visit Minutes 45 Visit Number 1 Number of [employer] LEAK TESTER Visits 0 Evaluation Information Evaluation Date 07/30/21 PT-OP-B Current Condition Start: 07/30/21 14:34 Freq: Status: Active Protocol: Document 07/30/21 10:30 DCW (Rec: 07/30/21 14:49 DCW [id number]) Current Condition History of Current Condition Onset Date Life-long history Current Complaints Weakness, back pain, instability History of Current Condition Pt is a 76 year old female presenting with a life-long history of back problems, beginning with congenital scoliosis. Pt reports that in the past, she has had physical therapy which in the past helped with her strength and balance, but never helped much with her back. Pt reports that she recently had injections, which has helped with her pain, but she is noticing some increased leg weakness. Since her back is feeling better, she would like to try to address her leg strength and balance before she and her take their boat to [place] for the summer . Pt also notes that at one point in 2019, she fell and hurt her left knee, and it didn't really heal right, and she is now unable to bend her knee more than 90?. Pt struggles to standing up from sitting or on the ground when she is out working in her yard . PT-OP-C Subjective Start: 07/30/21 14:34 Freq: Status: Active Protocol: Document 07/30/21 10:30 DCW (Rec: 07/30/21 14:49 DCW [id number]) OP-PT Subjective Patient Comments Patient Comments I have some impinged nerves in my low back, but at this point, the don't really cause me pain, just more like leg achiness. Patient Reported Progress Improving Patient Questionnaires Oswestry Low Back Index Oswestry Score 9/50 = 18% Oswestry Impairment 1 to 19% Impaired (Score 1-19) OP-PT Pain Assessment Pain Assessment Grid Paper Pain Assessment Grid Completed Yes Location Left Lower Back Intensity 3 Scale Used Numeric (0 - 10) Description Aching Radiating Location Radicular pain into left leg, can be as high as 6/10 PT-OP-D Balance Start: 07/30/21 14:34 Freq: Status: Active Protocol: Document 07/30/21 10:30 DCW (Rec: 07/30/21 14:49 DCW [id number]) OP-PT Balance Assessment Sitting Balance Static Sitting Balance Ability Normal Dynamic Sitting Balance Ability Normal Standing Balance Static Standing Balance Ability Good Dynamic Standing Balance Ability Good Balance Tests Yee Balance Test Yee Balance Test Score 45/56 Yee Impairment Rating 1 to 19% Impaired (Score 45-55 ) Yee Balance Assessment Evaluation Sitting to Standing Ability Independent w/out Hands Unsupported Stance Safely- 2 minutes Sitting Unsupported, Feet on Floor Safely- 2 minutes Standing to Sitting Ability Safely, Minimal Hand Use Transfer Ability Safely, Minimal Hand Use Unsupported Stance- Eyes Closed Safely, 10 seconds Unsupported Stance- Eyes Open Supervision to maintain Reaching Forward Standing Safely, 5 inches Pick- Up Object From Floor Independent/Safe Look Behind Shoulder - Standing Shifts Weight Unilateral Turning 360 Degrees Supervision/Verbal Cues Unsupported Stance, Alternating Feet on (I)- 8 Steps in 20 secs Stair Unsupported Tandem Stance Small Step- 30 seconds Unilateral Leg Stance Lifts Leg/Unable to Hold Total Score Yee Total Score (out of 56 points) 45 Lopez Fall Scale Copyright Permission PT-OP-E Functional Tests Start: 07/30/21 14:34 Freq: Status: Active Protocol: Document 07/30/21 10:30 DCW (Rec: 07/30/21 14:54 DCW [id number]) Functional Tests 30 Second Sit to Stand Test Score 9 Timed Up and Go (TUG) Score 9.80 Comments Three-trial average (9.89, 9.8 , 9.71) TUG Impairment Rating 0% Impaired (Score 10) PT-OP-K Range of Motion Start: 07/30/21 14:34 Freq: Status: Active Protocol: Document 07/30/21 10:30 DCW (Rec: 07/30/21 14:54 DCW [id number]) Knee Goniometric Range of Motion Knee Right Knee ROM WFL Yes Patient Position Sitting Flexion Active (degrees) 120 Flexion Passive (degrees) 130 Extension Active (degrees) 0 Extension Passive (degrees) 0 Left Knee ROM WFL No Patient Position Sitting Flexion Active (degrees) 90 Flexion Passive (degrees) 90 Extension Active (degrees) 0 Extension Passive (degrees) 0 PT-OP-M Strength Start: 07/30/21 14:34 Freq: Status: Active Protocol: Document 07/30/21 10:30 DCW (Rec: 07/30/21 14:54 DCW [id number]) Hip Strength Hip Manual Muscle Testing Right Flexion (L2) 3+ Fair+ Extension (S1) 3 Fair Abduction 3- Fair- Adduction 4- Good- External Rotation 4 Good Internal Rotation 4 Good Left Flexion (L2) 3 Fair Extension (S1) 3+ Fair+ Abduction 2+ Poor+ Adduction 4- Good- External Rotation 4 Good Internal Rotation 4 Good Knee Strength Knee Manual Muscle Testing Right Flexion (S2) 4- Good- Extension (L3) 4- Good- Left Flexion (S2) 2+ Poor+ Extension (L3) 4- Good- Ankle/Foot Strength Ankle and Foot Manual Muscle Testing Right Dorsiflexion (L4) 4 Good Plantarflexion (S1) 4 Good Left Dorsiflexion (L4) 4 Good Plantarflexion (S1) 4 Good PT-OP-T Assessment and Plan Start: 07/30/21 14:34 Freq: Status: Active Protocol: Document 07/30/21 10:30 DCW (Rec: 07/30/21 15:09 DCW [id number]) Physical Therapy Assessment Rehab Potential Rehabilitation Potential Good Evaluation Complexity Number of Personal Factors/Comorbidities 1-2 Number of Body Systems Impaired 1-2 Clinical Presentation at Evaluation Evolving Impairments Impairments Balance,Functional Activities, Functional Mobility,Pain,ROM, Strength Goals Three Impairment Pt scores 45/56 on Yee Balance scale Shelter Goal (LTG) Pt to increase Yee score at least 5 points to 50/56 to improve her ability to balance on her boat when she and her travel up to [place] over the summer. LTG Duration 09/27/21 Two Impairment Bilateral hip MMT between 4-/5 to 2+/5 in all planes Sheet Metal Supervisor Goal (LTG) Pt to increase bilateral hip strength to at least 4-/5 in all planes in order to improve sit<->stand ability and floor ->stand transfers LTG Duration 09/27/21 One Impairment Pt does not have an appropriate home exercise program Short Term Goal (STG) Pt to be independent and compliant with an appropriate HEP STG Duration 08/28/21 Assessment Summary Assessment Pt presents with signs and symptoms consistent with a mild increased falls risk and difficulty with getting herself off the floor secondary to fairly significant lower extremity weakness. Pt particularly weak in bilateral hips, and has limited left knee ROM, unable to flex past 90? with both passive and active ROM after a fall ~1.5 years ago. Pt's balance not too bad, pt demonstrates pretty good balance with a 9.8 TUG score, as well as a score of 45/56 on her Yee Balance. Pt should benefit from skilled therapy focusing more on lower extremity strengthening and left knee ROM. Pt may also benefit from floor transfer training. Physical Therapy Plan Frequency and Duration Frequency of Treatment 2x/Week Duration of Treatment 2 months Plan of Care Start Date 07/30/21 Plan of Care End Date 09/27/21 Therapeutic Interventions Therapeutic Interventions Balance Training,Gait Training ,Home Exercise Program,Manual Therapy,Neuromuscular Re- education,Patient/Caregiver Education,Self-Care/Home Management,Soft Tissue Mobilization,Therapeutic Exercises Next Visit Focus/Plan Next Note Type Treatment Note Next Visit Plan LE strengthening, balance training
--- NOTE | 2021-07-30 15:15 | PT.OPPOC ---
Physical, Occupational & Speech Therapy At [facility] Current Diagnoses Adolescent idiopathic scoliosis, lumbar region (07/30/21) Spinal stenosis, lumbar region without neurogenic claudication (07/30/21) Muscle weakness (generalized) (07/30/21) Other abnormalities of gait and mobility (07/30/21) Other symptoms and signs involving the musculoskeletal system (07/30/21) Visit Care Team Role Provider Type Darin Tran MD Family Provider Physician Primary Care Provider Specialty: Internal Medicine Address: [address] [place] [address], [facility] [address], [place], [address] Email: [email or web address] Merrill Wang DO Attending Provider Physician Referring Provider Specialty: Physiatry Pain Management Address: [address] [place] [address], [id number] Email: [email or web address] Plan Of Care PT-OP-T Assessment and Plan Start: 07/30/21 14:34 Freq: Status: Active Protocol: Document 07/30/21 10:30 DCW (Rec: 07/30/21 15:09 DCW [id number]) Physical Therapy Assessment Rehab Potential Rehabilitation Potential Good Evaluation Complexity Number of Personal Factors/Comorbidities 1-2 Number of Body Systems Impaired 1-2 Clinical Presentation at Evaluation Evolving Impairments Impairments Balance,Functional Activities, Functional Mobility,Pain,ROM, Strength Goals Three Impairment Pt scores 45/56 on Yee Balance scale Chcf Goal (LTG) Pt to increase Yee score at least 5 points to 50/56 to improve her ability to balance on her boat when she and her travel up to [place] over the summer. LTG Duration 09/27/21 Two Impairment Bilateral hip MMT between 4-/5 to 2+/5 in all planes Chcf Goal (LTG) Pt to increase bilateral hip strength to at least 4-/5 in all planes in order to improve sit<->stand ability and floor ->stand transfers LTG Duration 09/27/21 One Impairment Pt does not have an appropriate home exercise program Short Term Goal (STG) Pt to be independent and compliant with an appropriate HEP STG Duration 08/28/21 Assessment Summary Assessment Pt presents with signs and symptoms consistent with a mild increased falls risk and difficulty with getting herself off the floor secondary to fairly significant lower extremity weakness. Pt particularly weak in bilateral hips, and has limited left knee ROM, unable to flex past 90? with both passive and active ROM after a fall ~1.5 years ago. Pt's balance not too bad, pt demonstrates pretty good balance with a 9.8 TUG score, as well as a score of 45/56 on her Yee Balance. Pt should benefit from skilled therapy focusing more on lower extremity strengthening and left knee ROM. Pt may also benefit from floor transfer training. Physical Therapy Plan Frequency and Duration Frequency of Treatment 2x/Week Duration of Treatment 2 months Plan of Care Start Date 07/30/21 Plan of Care End Date 09/27/21 Therapeutic Interventions Therapeutic Interventions Balance Training,Gait Training ,Home Exercise Program,Manual Therapy,Neuromuscular Re- education,Patient/Caregiver Education,Self-Care/Home Management,Soft Tissue Mobilization,Therapeutic Exercises Next Visit Focus/Plan Next Note Type Treatment Note Next Visit Plan LE strengthening, balance training Plan of Care Dates Plan of Care Start Date 07/30/21 Plan of Care End Date 09/27/21 Electronically Signed by: Oziel Carlos, PT 07/30/21 1416 Please Sign and Return: I have reviewed this Plan of Care and certify that the skilled therapy services above are required to meet the patient?s needs. Physician Signature Date Printed Name and Credentials Clinical Instructor Signature Printed Name and Credentials
--- NOTE | 2021-08-03 11:14 | PT.OTN ---
Current Diagnoses Adolescent idiopathic scoliosis, lumbar region (08/03/21) Spinal stenosis, lumbar region without neurogenic claudication (08/03/21) Muscle weakness (generalized) (08/03/21) Other abnormalities of gait and mobility (08/03/21) Other symptoms and signs involving the musculoskeletal system (08/03/21) Physical Therapy Treatment Note PT-OP-A Visit Information Start: 07/30/21 14:34 Freq: Status: Active Protocol: Document 08/03/21 10:30 DCW (Rec: 08/03/21 11:14 DCW [id number]) Out-Patient Physical Therapy Visit Information Visit Information Visit Type Treatment Note Visit Start Time 10:30 Visit Stop Time 11:15 Total Visit Minutes 45 Visit Number 2 Number of VP COMMUNICATIONS Visits 0 Evaluation Information Evaluation Date 07/30/21 PT-OP-B Current Condition Start: 07/30/21 14:34 Freq: Status: Active Protocol: Document 07/30/21 10:30 DCW (Rec: 07/30/21 14:49 DCW [id number]) Current Condition History of Current Condition Onset Date Life-long history Current Complaints Weakness, back pain, instability History of Current Condition Pt is a 76 year old female presenting with a life-long history of back problems, beginning with congenital scoliosis. Pt reports that in the past, she has had physical therapy which in the past helped with her strength and balance, but never helped much with her back. Pt reports that she recently had injections, which has helped with her pain, but she is noticing some increased leg weakness. Since her back is feeling better, she would like to try to address her leg strength and balance before she and her take their boat to [place] for the summer . Pt also notes that at one point in 2019, she fell and hurt her left knee, and it didn't really heal right, and she is now unable to bend her knee more than 90?. Pt struggles to standing up from sitting or on the ground when she is out working in her yard . PT-OP-C Subjective Start: 07/30/21 14:34 Freq: Status: Active Protocol: Document 08/03/21 10:30 DCW (Rec: 08/03/21 11:14 DCW [id number]) OP-PT Subjective Patient Comments Patient Comments I got down to the floor yesterday day and, darn it, I could not get up. I just didn' t have the strength in my legs . PT-OP-D Balance Start: 07/30/21 14:34 Freq: Status: Active Protocol: Document 07/30/21 10:30 DCW (Rec: 07/30/21 14:49 DCW [id number]) OP-PT Balance Assessment Sitting Balance Static Sitting Balance Ability Normal Dynamic Sitting Balance Ability Normal Standing Balance Static Standing Balance Ability Good Dynamic Standing Balance Ability Good Balance Tests Yee Balance Test Yee Balance Test Score 45/56 Yee Impairment Rating 1 to 19% Impaired (Score 45-55 ) Yee Balance Assessment Evaluation Sitting to Standing Ability Independent w/out Hands Unsupported Stance Safely- 2 minutes Sitting Unsupported, Feet on Floor Safely- 2 minutes Standing to Sitting Ability Safely, Minimal Hand Use Transfer Ability Safely, Minimal Hand Use Unsupported Stance- Eyes Closed Safely, 10 seconds Unsupported Stance- Eyes Open Supervision to maintain Reaching Forward Standing Safely, 5 inches Pick- Up Object From Floor Independent/Safe Look Behind Shoulder - Standing Shifts Weight Unilateral Turning 360 Degrees Supervision/Verbal Cues Unsupported Stance, Alternating Feet on (I)- 8 Steps in 20 secs Stair Unsupported Tandem Stance Small Step- 30 seconds Unilateral Leg Stance Lifts Leg/Unable to Hold Total Score Yee Total Score (out of 56 points) 45 Lopez Fall Scale Copyright Permission PT-OP-E Functional Tests Start: 07/30/21 14:34 Freq: Status: Active Protocol: Document 07/30/21 10:30 DCW (Rec: 07/30/21 14:54 DCW [id number]) Functional Tests 30 Second Sit to Stand Test Score 9 Timed Up and Go (TUG) Score 9.80 Comments Three-trial average (9.89, 9.8 , 9.71) TUG Impairment Rating 0% Impaired (Score 10) PT-OP-K Range of Motion Start: 07/30/21 14:34 Freq: Status: Active Protocol: Document 07/30/21 10:30 DCW (Rec: 07/30/21 14:54 DCW [id number]) Knee Goniometric Range of Motion Knee Right Knee ROM WFL Yes Patient Position Sitting Flexion Active (degrees) 120 Flexion Passive (degrees) 130 Extension Active (degrees) 0 Extension Passive (degrees) 0 Left Knee ROM WFL No Patient Position Sitting Flexion Active (degrees) 90 Flexion Passive (degrees) 90 Extension Active (degrees) 0 Extension Passive (degrees) 0 PT-OP-M Strength Start: 07/30/21 14:34 Freq: Status: Active Protocol: Document 07/30/21 10:30 DCW (Rec: 07/30/21 14:54 DCW [id number]) Hip Strength Hip Manual Muscle Testing Right Flexion (L2) 3+ Fair+ Extension (S1) 3 Fair Abduction 3- Fair- Adduction 4- Good- External Rotation 4 Good Internal Rotation 4 Good Left Flexion (L2) 3 Fair Extension (S1) 3+ Fair+ Abduction 2+ Poor+ Adduction 4- Good- External Rotation 4 Good Internal Rotation 4 Good Knee Strength Knee Manual Muscle Testing Right Flexion (S2) 4- Good- Extension (L3) 4- Good- Left Flexion (S2) 2+ Poor+ Extension (L3) 4- Good- Ankle/Foot Strength Ankle and Foot Manual Muscle Testing Right Dorsiflexion (L4) 4 Good Plantarflexion (S1) 4 Good Left Dorsiflexion (L4) 4 Good Plantarflexion (S1) 4 Good PT-OP-Q Treatments Start: 07/30/21 14:34 Freq: Status: Active Protocol: Document 08/03/21 10:30 DCW (Rec: 08/03/21 11:14 DCW [id number]) Cardio Equipment Recumbent Elliptical (Biodex) Duration (Minutes) 5 Resistance 5 Seat Position 9 Gym Equipment Shuttle Recovery Bilateral Heel Raises Details Heel raise Resistance 62# Shuttle Recovery Platform Stable Reps/Time 20 reps Unilateral Squats Resistance 62# Shuttle Recovery Platform Stable Reps/Time 2x10 Bilateral Squats Resistance 100# Shuttle Recovery Platform Unstable Reps/Time 2x15 Shuttle Balance blue clips Details WBOS Comments EO/EC, X1 Therapeutic Exercises Sitting Exercises 1 Sitting Exercise Name HS curls Side bilateral Resistance Lv 2 Equipment Used T-band Standing Exercises 1 Standing Exercise Name Hip Extension Side bilateral Resistance Red Equipment Used T-band Other Exercises 1 Other Exercise Name Resisted side-stepping Resistance Red Equipment Used T-band Neuro Re-Education Treatment Balance Activities Foam Stance Details NBOS EC Surface Martin foam Tandem Details Tandem gait Equipment @ rail Single Limb Standing Details SLS PT-OP-T Assessment and Plan Start: 07/30/21 14:34 Freq: Status: Active Protocol: Document 08/03/21 10:30 DCW (Rec: 08/03/21 11:14 [id number]) Physical Therapy Assessment Impairments Impairments Balance,Functional Activities, Functional Mobility,Pain,ROM, Strength Goals Three Impairment Pt scores 45/56 on Yee Balance scale Usp Goal (LTG) Pt to increase Yee score at least 5 points to 50/56 to improve her ability to balance on her boat when she and her travel up to [place] over the summer. LTG Duration 09/27/21 Two Impairment Bilateral hip MMT between 4-/5 to 2+/5 in all planes Licensed Therapist Goal (LTG) Pt to increase bilateral hip strength to at least 4-/5 in all planes in order to improve sit<->stand ability and floor ->stand transfers LTG Duration 09/27/21 One Impairment Pt does not have an appropriate home exercise program Short Term Goal (STG) Pt to be independent and compliant with an appropriate HEP STG Duration 08/28/21 Assessment Summary Assessment Pt tolerated treatment well, did experience some sensations of almost cramping in hamstrings and gastrocs with some exercises, notes this is fairly typical for her. Physical Therapy Plan Frequency and Duration Frequency of Treatment 2x/Week Duration of Treatment 2 months Plan of Care Start Date 07/30/21 Plan of Care End Date 09/27/21 Therapeutic Interventions Therapeutic Interventions Balance Training,Gait Training ,Home Exercise Program,Manual Therapy,Neuromuscular Re- education,Patient/Caregiver Education,Self-Care/Home Management,Soft Tissue Mobilization,Therapeutic Exercises Next Visit Focus/Plan Next Note Type Treatment Note Next Visit Plan LE strengthening, balance training
--- NOTE | 2021-08-06 11:12 | PT.OTN ---
Current Diagnoses Adolescent idiopathic scoliosis, lumbar region (08/06/21) Spinal stenosis, lumbar region without neurogenic claudication (08/06/21) Muscle weakness (generalized) (08/06/21) Other abnormalities of gait and mobility (08/06/21) Other symptoms and signs involving the musculoskeletal system (08/06/21) Physical Therapy Treatment Note PT-OP-A Visit Information Start: 07/30/21 14:34 Freq: Status: Active Protocol: Document 08/06/21 10:30 DCW (Rec: 08/06/21 11:12 DCW [id number]) Out-Patient Physical Therapy Visit Information Visit Information Visit Type Treatment Note Visit Start Time 10:30 Visit Stop Time 11:15 Total Visit Minutes 45 Visit Number 3 Number of SUPERVISOR HARD CANDY Visits 0 Evaluation Information Evaluation Date 07/30/21 PT-OP-B Current Condition Start: 07/30/21 14:34 Freq: Status: Active Protocol: Document 07/30/21 10:30 DCW (Rec: 07/30/21 14:49 DCW [id number]) Current Condition History of Current Condition Onset Date Life-long history Current Complaints Weakness, back pain, instability History of Current Condition Pt is a 76 year old female presenting with a life-long history of back problems, beginning with congenital scoliosis. Pt reports that in the past, she has had physical therapy which in the past helped with her strength and balance, but never helped much with her back. Pt reports that she recently had injections, which has helped with her pain, but she is noticing some increased leg weakness. Since her back is feeling better, she would like to try to address her leg strength and balance before she and her take their boat to [place] for the summer . Pt also notes that at one point in 2019, she fell and hurt her left knee, and it didn't really heal right, and she is now unable to bend her knee more than 90?. Pt struggles to standing up from sitting or on the ground when she is out working in her yard . PT-OP-C Subjective Start: 07/30/21 14:34 Freq: Status: Active Protocol: Document 08/06/21 10:30 DCW (Rec: 08/06/21 11:12 DCW [id number]) OP-PT Subjective Patient Comments Patient Comments Whatever we did last week, I had more flexibility in this knee, the best it has been in probably a year. PT-OP-D Balance Start: 07/30/21 14:34 Freq: Status: Active Protocol: Document 07/30/21 10:30 DCW (Rec: 07/30/21 14:49 DCW [id number]) OP-PT Balance Assessment Sitting Balance Static Sitting Balance Ability Normal Dynamic Sitting Balance Ability Normal Standing Balance Static Standing Balance Ability Good Dynamic Standing Balance Ability Good Balance Tests Yee Balance Test Yee Balance Test Score 45/56 Yee Impairment Rating 1 to 19% Impaired (Score 45-55 ) Yee Balance Assessment Evaluation Sitting to Standing Ability Independent w/out Hands Unsupported Stance Safely- 2 minutes Sitting Unsupported, Feet on Floor Safely- 2 minutes Standing to Sitting Ability Safely, Minimal Hand Use Transfer Ability Safely, Minimal Hand Use Unsupported Stance- Eyes Closed Safely, 10 seconds Unsupported Stance- Eyes Open Supervision to maintain Reaching Forward Standing Safely, 5 inches Pick- Up Object From Floor Independent/Safe Look Behind Shoulder - Standing Shifts Weight Unilateral Turning 360 Degrees Supervision/Verbal Cues Unsupported Stance, Alternating Feet on (I)- 8 Steps in 20 secs Stair Unsupported Tandem Stance Small Step- 30 seconds Unilateral Leg Stance Lifts Leg/Unable to Hold Total Score Yee Total Score (out of 56 points) 45 Lopez Fall Scale Copyright Permission PT-OP-E Functional Tests Start: 07/30/21 14:34 Freq: Status: Active Protocol: Document 07/30/21 10:30 DCW (Rec: 07/30/21 14:54 DCW [id number]) Functional Tests 30 Second Sit to Stand Test Score 9 Timed Up and Go (TUG) Score 9.80 Comments Three-trial average (9.89, 9.8 , 9.71) TUG Impairment Rating 0% Impaired (Score 10) PT-OP-K Range of Motion Start: 07/30/21 14:34 Freq: Status: Active Protocol: Document 07/30/21 10:30 DCW (Rec: 07/30/21 14:54 DCW [id number]) Knee Goniometric Range of Motion Knee Right Knee ROM WFL Yes Patient Position Sitting Flexion Active (degrees) 120 Flexion Passive (degrees) 130 Extension Active (degrees) 0 Extension Passive (degrees) 0 Left Knee ROM WFL No Patient Position Sitting Flexion Active (degrees) 90 Flexion Passive (degrees) 90 Extension Active (degrees) 0 Extension Passive (degrees) 0 PT-OP-M Strength Start: 07/30/21 14:34 Freq: Status: Active Protocol: Document 07/30/21 10:30 DCW (Rec: 07/30/21 14:54 DCW [id number]) Hip Strength Hip Manual Muscle Testing Right Flexion (L2) 3+ Fair+ Extension (S1) 3 Fair Abduction 3- Fair- Adduction 4- Good- External Rotation 4 Good Internal Rotation 4 Good Left Flexion (L2) 3 Fair Extension (S1) 3+ Fair+ Abduction 2+ Poor+ Adduction 4- Good- External Rotation 4 Good Internal Rotation 4 Good Knee Strength Knee Manual Muscle Testing Right Flexion (S2) 4- Good- Extension (L3) 4- Good- Left Flexion (S2) 2+ Poor+ Extension (L3) 4- Good- Ankle/Foot Strength Ankle and Foot Manual Muscle Testing Right Dorsiflexion (L4) 4 Good Plantarflexion (S1) 4 Good Left Dorsiflexion (L4) 4 Good Plantarflexion (S1) 4 Good PT-OP-Q Treatments Start: 07/30/21 14:34 Freq: Status: Active Protocol: Document 08/06/21 10:30 DCW (Rec: 08/06/21 11:12 DCW [id number]) Cardio Equipment Recumbent Elliptical (Biodex) Duration (Minutes) 5 Resistance 5 Seat Position 9 Gym Equipment Shuttle Recovery Bilateral Heel Raises Details Heel raise Resistance 62# Shuttle Recovery Platform Stable Reps/Time 20 reps Unilateral Squats Resistance 62# Shuttle Recovery Platform Stable Reps/Time 2x10 Bilateral Squats Resistance 100# Shuttle Recovery Platform Unstable Reps/Time 2x15 Shuttle Balance blue clips Details WBOS Comments EO/EC, X1 Therapeutic Exercises Sidelying Exercises 3 Sidelying Exercise Name Hip Abduction Side bilateral 2 Sidelying Exercise Name Reverse Clamshell Side bilateral 1 Sidelying Exercise Name Clamshell Side bilateral Sitting Exercises 1 Sitting Exercise Name HS curls Side bilateral Resistance Lv 2 Equipment Used T-band Standing Exercises 2 Standing Exercise Name Step knee flexion stretch Other Exercises 1 Other Exercise Name Resisted side-stepping Resistance Red Equipment Used T-band Neuro Re-Education Treatment Balance Activities Tandem Details Tandem gait Equipment @ rail Single Limb Standing Details SLS hurdles Equipment 6 hurdles Comments fwd x4 side x2 B PT-OP-T Assessment and Plan Start: 07/30/21 14:34 Freq: Status: Active Protocol: Document 08/06/21 10:30 DCW (Rec: 08/06/21 11:12 DCW [id number]) Physical Therapy Assessment Impairments Impairments Balance,Functional Activities, Functional Mobility,Pain,ROM, Strength Goals Three Impairment Pt scores 45/56 on Yee Balance scale Penitentiary Goal (LTG) Pt to increase Eye score at least 5 points to 50/56 to improve her ability to balance on her boat when she and her travel up to [place] over the summer. LTG Duration 09/27/21 Two Impairment Bilateral hip MMT between 4-/5 to 2+/5 in all planes A/C Tech Goal (LTG) Pt to increase bilateral hip strength to at least 4-/5 in all planes in order to improve sit<->stand ability and floor ->stand transfers LTG Duration 09/27/21 One Impairment Pt does not have an appropriate home exercise program Short Term Goal (STG) Pt to be independent and compliant with an appropriate HEP STG Duration 08/28/21 Assessment Summary Assessment Pt showing improved left knee ROM already, although does demonstrate increased difficulty with stabilizing left leg vs right leg. Physical Therapy Plan Frequency and Duration Frequency of Treatment 2x/Week Duration of Treatment 2 months Plan of Care Start Date 07/30/21 Plan of Care End Date 09/27/21 Therapeutic Interventions Therapeutic Interventions Balance Training,Gait Training ,Home Exercise Program,Manual Therapy,Neuromuscular Re- education,Patient/Caregiver Education,Self-Care/Home Management,Soft Tissue Mobilization,Therapeutic Exercises Next Visit Focus/Plan Next Note Type Treatment Note Next Visit Plan LE strengthening, balance training
--- NOTE | 2021-08-10 11:15 | PT.OTN ---
Current Diagnoses Adolescent idiopathic scoliosis, lumbar region (08/10/21) Spinal stenosis, lumbar region without neurogenic claudication (08/10/21) Muscle weakness (generalized) (08/10/21) Other abnormalities of gait and mobility (08/10/21) Other symptoms and signs involving the musculoskeletal system (08/10/21) Physical Therapy Treatment Note PT-OP-A Visit Information Start: 07/30/21 14:34 Freq: Status: Active Protocol: Document 08/10/21 10:30 DCW (Rec: 08/10/21 11:14 DCW [id number]) Out-Patient Physical Therapy Visit Information Visit Information Visit Type Treatment Note Visit Start Time 10:30 Visit Stop Time 11:15 Total Visit Minutes 45 Visit Number 4 Number of SEARCH MARKETING ANALYST Visits 0 Evaluation Information Evaluation Date 07/30/21 PT-OP-B Current Condition Start: 07/30/21 14:34 Freq: Status: Active Protocol: Document 07/30/21 10:30 DCW (Rec: 07/30/21 14:49 DCW [id number]) Current Condition History of Current Condition Onset Date Life-long history Current Complaints Weakness, back pain, instability History of Current Condition Pt is a 76 year old female presenting with a life-long history of back problems, beginning with congenital scoliosis. Pt reports that in the past, she has had physical therapy which in the past helped with her strength and balance, but never helped much with her back. Pt reports that she recently had injections, which has helped with her pain, but she is noticing some increased leg weakness. Since her back is feeling better, she would like to try to address her leg strength and balance before she and her take their boat to [place] for the summer . Pt also notes that at one point in 2019, she fell and hurt her left knee, and it didn't really heal right, and she is now unable to bend her knee more than 90?. Pt struggles to standing up from sitting or on the ground when she is out working in her yard . PT-OP-C Subjective Start: 07/30/21 14:34 Freq: Status: Active Protocol: Document 08/10/21 10:30 DCW (Rec: 08/10/21 11:14 DCW [id number]) OP-PT Subjective Patient Comments Patient Comments Pt notes her knee is still doing pretty good, has been having a much easier time getting into or out of her car . PT-OP-D Balance Start: 07/30/21 14:34 Freq: Status: Active Protocol: Document 07/30/21 10:30 DCW (Rec: 07/30/21 14:49 DCW [id number]) OP-PT Balance Assessment Sitting Balance Static Sitting Balance Ability Normal Dynamic Sitting Balance Ability Normal Standing Balance Static Standing Balance Ability Good Dynamic Standing Balance Ability Good Balance Tests Yee Balance Test Yee Balance Test Score 45/56 Yee Impairment Rating 1 to 19% Impaired (Score 45-55 ) Yee Balance Assessment Evaluation Sitting to Standing Ability Independent w/out Hands Unsupported Stance Safely- 2 minutes Sitting Unsupported, Feet on Floor Safely- 2 minutes Standing to Sitting Ability Safely, Minimal Hand Use Transfer Ability Safely, Minimal Hand Use Unsupported Stance- Eyes Closed Safely, 10 seconds Unsupported Stance- Eyes Open Supervision to maintain Reaching Forward Standing Safely, 5 inches Pick- Up Object From Floor Independent/Safe Look Behind Shoulder - Standing Shifts Weight Unilateral Turning 360 Degrees Supervision/Verbal Cues Unsupported Stance, Alternating Feet on (I)- 8 Steps in 20 secs Stair Unsupported Tandem Stance Small Step- 30 seconds Unilateral Leg Stance Lifts Leg/Unable to Hold Total Score Yee Total Score (out of 56 points) 45 Lopez Fall Scale Copyright Permission PT-OP-E Functional Tests Start: 07/30/21 14:34 Freq: Status: Active Protocol: Document 07/30/21 10:30 DCW (Rec: 07/30/21 14:54 DCW [id number]) Functional Tests 30 Second Sit to Stand Test Score 9 Timed Up and Go (TUG) Score 9.80 Comments Three-trial average (9.89, 9.8 , 9.71) TUG Impairment Rating 0% Impaired (Score 10) PT-OP-K Range of Motion Start: 07/30/21 14:34 Freq: Status: Active Protocol: Document 07/30/21 10:30 DCW (Rec: 07/30/21 14:54 DCW [id number]) Knee Goniometric Range of Motion Knee Right Knee ROM WFL Yes Patient Position Sitting Flexion Active (degrees) 120 Flexion Passive (degrees) 130 Extension Active (degrees) 0 Extension Passive (degrees) 0 Left Knee ROM WFL No Patient Position Sitting Flexion Active (degrees) 90 Flexion Passive (degrees) 90 Extension Active (degrees) 0 Extension Passive (degrees) 0 PT-OP-M Strength Start: 07/30/21 14:34 Freq: Status: Active Protocol: Document 07/30/21 10:30 DCW (Rec: 07/30/21 14:54 DCW [id number]) Hip Strength Hip Manual Muscle Testing Right Flexion (L2) 3+ Fair+ Extension (S1) 3 Fair Abduction 3- Fair- Adduction 4- Good- External Rotation 4 Good Internal Rotation 4 Good Left Flexion (L2) 3 Fair Extension (S1) 3+ Fair+ Abduction 2+ Poor+ Adduction 4- Good- External Rotation 4 Good Internal Rotation 4 Good Knee Strength Knee Manual Muscle Testing Right Flexion (S2) 4- Good- Extension (L3) 4- Good- Left Flexion (S2) 2+ Poor+ Extension (L3) 4- Good- Ankle/Foot Strength Ankle and Foot Manual Muscle Testing Right Dorsiflexion (L4) 4 Good Plantarflexion (S1) 4 Good Left Dorsiflexion (L4) 4 Good Plantarflexion (S1) 4 Good PT-OP-Q Treatments Start: 07/30/21 14:34 Freq: Status: Active Protocol: Document 08/10/21 10:30 DCW (Rec: 08/10/21 11:14 DCW [id number]) Cardio Equipment Recumbent Elliptical (BiodWithin3) Duration (Minutes) 5 Resistance 6 Seat Position 9 Gym Equipment Shuttle Recovery Bilateral Heel Raises Details Heel raise Resistance 62# Shuttle Recovery Platform Stable Reps/Time 20 reps Unilateral Squats Resistance 62# Shuttle Recovery Platform Stable Reps/Time 2x10 Bilateral Squats Resistance 100# Shuttle Recovery Platform Unstable Reps/Time 2x15 Shuttle Balance red clips Details WBOS, Staggered Therapeutic Exercises Sitting Exercises 1 Sitting Exercise Name HS curls Side bilateral Resistance Lv 2 Equipment Used T-band Standing Exercises 2 Standing Exercise Name Step knee flexion stretch 1 Standing Exercise Name Hip Extension Side bilateral Resistance Red Equipment Used T-band Other Exercises 1 Other Exercise Name Resisted side-stepping Resistance Red Equipment Used T-band Neuro Re-Education Treatment Balance Activities Foam Stance Details NBOS EC Surface Black pad Tandem Details Tandem gait Equipment @ rail Single Limb Standing Details SLS PT-OP-T Assessment and Plan Start: 07/30/21 14:34 Freq: Status: Active Protocol: Document 08/10/21 10:30 DCW (Rec: 08/10/21 11:14 [facility] [id number]) Physical Therapy Assessment Impairments Impairments Balance,Functional Activities, Functional Mobility,Pain,ROM, Strength Goals Three Impairment Pt scores 45/56 on Yee Balance scale Securities Adviser Goal (LTG) Pt to increase Yee score at least 5 points to 50/56 to improve her ability to balance on her boat when she and her travel up to [place] over the summer. LTG Duration 09/27/21 Two Impairment Bilateral hip MMT between 4-/5 to 2+/5 in all planes Securities Adviser Goal (LTG) Pt to increase bilateral hip strength to at least 4-/5 in all planes in order to improve sit<->stand ability and floor ->stand transfers LTG Duration 09/27/21 One Impairment Pt does not have an appropriate home exercise program Short Term Goal (STG) Pt to be independent and compliant with an appropriate HEP STG Duration 08/28/21 Assessment Summary Assessment Pt feeling better with ROM and stability, tolerating treatment very well today. Physical Therapy Plan Frequency and Duration Frequency of Treatment 2x/Week Duration of Treatment 2 months Plan of Care Start Date 07/30/21 Plan of Care End Date 09/27/21 Therapeutic Interventions Therapeutic Interventions Balance Training,Gait Training ,Home Exercise Program,Manual Therapy,Neuromuscular Re- education,Patient/Caregiver Education,Self-Care/Home Management,Soft Tissue Mobilization,Therapeutic Exercises Next Visit Focus/Plan Next Note Type Treatment Note Next Visit Plan LE strengthening, balance training
--- NOTE | 2021-08-13 11:19 | PT.OTN ---
Current Diagnoses Adolescent idiopathic scoliosis, lumbar region (08/13/21) Spinal stenosis, lumbar region without neurogenic claudication (08/13/21) Muscle weakness (generalized) (08/13/21) Other abnormalities of gait and mobility (08/13/21) Other symptoms and signs involving the musculoskeletal system (08/13/21) Physical Therapy Treatment Note PT-OP-A Visit Information Start: 07/30/21 14:34 Freq: Status: Active Protocol: Document 08/13/21 10:30 DCW (Rec: 08/13/21 11:18 DCW [id number]) Out-Patient Physical Therapy Visit Information Visit Information Visit Type Treatment Note Visit Start Time 10:30 Visit Stop Time 11:15 Total Visit Minutes 45 Visit Number 5 Number of WAREHOUSE PERSON Visits 0 Evaluation Information Evaluation Date 07/30/21 PT-OP-B Current Condition Start: 07/30/21 14:34 Freq: Status: Active Protocol: Document 07/30/21 10:30 DCW (Rec: 07/30/21 14:49 DCW [id number]) Current Condition History of Current Condition Onset Date Life-long history Current Complaints Weakness, back pain, instability History of Current Condition Pt is a 76 year old female presenting with a life-long history of back problems, beginning with congenital scoliosis. Pt reports that in the past, she has had physical therapy which in the past helped with her strength and balance, but never helped much with her back. Pt reports that she recently had injections, which has helped with her pain, but she is noticing some increased leg weakness. Since her back is feeling better, she would like to try to address her leg strength and balance before she and her take their boat to [place] for the summer . Pt also notes that at one point in 2019, she fell and hurt her left knee, and it didn't really heal right, and she is now unable to bend her knee more than 90?. Pt struggles to standing up from sitting or on the ground when she is out working in her yard . PT-OP-C Subjective Start: 07/30/21 14:34 Freq: Status: Active Protocol: Document 08/13/21 10:30 DCW (Rec: 08/13/21 11:18 DCW [id number]) OP-PT Subjective Patient Comments Patient Comments Pt notes she is having some arthritis pain in her wrists and hands, but overall is feeling alright. PT-OP-D Balance Start: 07/30/21 14:34 Freq: Status: Active Protocol: Document 07/30/21 10:30 DCW (Rec: 07/30/21 14:49 DCW [id number]) OP-PT Balance Assessment Sitting Balance Static Sitting Balance Ability Normal Dynamic Sitting Balance Ability Normal Standing Balance Static Standing Balance Ability Good Dynamic Standing Balance Ability Good Balance Tests Yee Balance Test Yee Balance Test Score 45/56 Yee Impairment Rating 1 to 19% Impaired (Score 45-55 ) Yee Balance Assessment Evaluation Sitting to Standing Ability Independent w/out Hands Unsupported Stance Safely- 2 minutes Sitting Unsupported, Feet on Floor Safely- 2 minutes Standing to Sitting Ability Safely, Minimal Hand Use Transfer Ability Safely, Minimal Hand Use Unsupported Stance- Eyes Closed Safely, 10 seconds Unsupported Stance- Eyes Open Supervision to maintain Reaching Forward Standing Safely, 5 inches Pick- Up Object From Floor Independent/Safe Look Behind Shoulder - Standing Shifts Weight Unilateral Turning 360 Degrees Supervision/Verbal Cues Unsupported Stance, Alternating Feet on (I)- 8 Steps in 20 secs Stair Unsupported Tandem Stance Small Step- 30 seconds Unilateral Leg Stance Lifts Leg/Unable to Hold Total Score Yee Total Score (out of 56 points) 45 Lopez Fall Scale Copyright Permission PT-OP-E Functional Tests Start: 07/30/21 14:34 Freq: Status: Active Protocol: Document 07/30/21 10:30 DCW (Rec: 07/30/21 14:54 DCW [id number]) Functional Tests 30 Second Sit to Stand Test Score 9 Timed Up and Go (TUG) Score 9.80 Comments Three-trial average (9.89, 9.8 , 9.71) TUG Impairment Rating 0% Impaired (Score 10) PT-OP-K Range of Motion Start: 07/30/21 14:34 Freq: Status: Active Protocol: Document 07/30/21 10:30 DCW (Rec: 07/30/21 14:54 DCW [id number]) Knee Goniometric Range of Motion Knee Right Knee ROM WFL Yes Patient Position Sitting Flexion Active (degrees) 120 Flexion Passive (degrees) 130 Extension Active (degrees) 0 Extension Passive (degrees) 0 Left Knee ROM WFL No Patient Position Sitting Flexion Active (degrees) 90 Flexion Passive (degrees) 90 Extension Active (degrees) 0 Extension Passive (degrees) 0 PT-OP-M Strength Start: 07/30/21 14:34 Freq: Status: Active Protocol: Document 07/30/21 10:30 DCW (Rec: 07/30/21 14:54 DCW [id number]) Hip Strength Hip Manual Muscle Testing Right Flexion (L2) 3+ Fair+ Extension (S1) 3 Fair Abduction 3- Fair- Adduction 4- Good- External Rotation 4 Good Internal Rotation 4 Good Left Flexion (L2) 3 Fair Extension (S1) 3+ Fair+ Abduction 2+ Poor+ Adduction 4- Good- External Rotation 4 Good Internal Rotation 4 Good Knee Strength Knee Manual Muscle Testing Right Flexion (S2) 4- Good- Extension (L3) 4- Good- Left Flexion (S2) 2+ Poor+ Extension (L3) 4- Good- Ankle/Foot Strength Ankle and Foot Manual Muscle Testing Right Dorsiflexion (L4) 4 Good Plantarflexion (S1) 4 Good Left Dorsiflexion (L4) 4 Good Plantarflexion (S1) 4 Good PT-OP-Q Treatments Start: 07/30/21 14:34 Freq: Status: Active Protocol: Document 08/13/21 10:30 DCW (Rec: 08/13/21 11:18 DCW [id number]) Cardio Equipment Recumbent Elliptical (BiodAtomic Reach) Duration (Minutes) 6 Resistance 6 Seat Position 9 Gym Equipment Shuttle Recovery Bilateral Heel Raises Details Heel raise Resistance 62# Shuttle Recovery Platform Stable Reps/Time 20 reps Unilateral Squats Resistance 62# Shuttle Recovery Platform Stable Reps/Time 2x10 Bilateral Squats Resistance 100# Shuttle Recovery Platform Unstable Reps/Time 2x15 Shuttle Balance red clips Details WBOS, Staggered Therapeutic Exercises Sitting Exercises 1 Sitting Exercise Name HS curls Side bilateral Resistance Lv 2 Equipment Used T-band Standing Exercises 1 Standing Exercise Name Hip Extension Side bilateral Resistance Red Equipment Used T-band Other Exercises 1 Other Exercise Name Resisted side-stepping Resistance Red Equipment Used T-band Manual Therapy Treatment Joint Mobilizations Knee Joint L knee Direction P->A Neuro Re-Education Treatment Balance Activities Tandem Details Tandem gait Equipment @ rail Single Limb Standing Details SLS PT-OP-T Assessment and Plan Start: 07/30/21 14:34 Freq: Status: Active Protocol: Document 08/13/21 10:30 DCW (Rec: 08/13/21 11:18 DCW [id number]) Physical Therapy Assessment Impairments Impairments Balance,Functional Activities, Functional Mobility,Pain,ROM, Strength Goals Three Impairment Pt scores 45/56 on Yee Balance scale Detention Goal (LTG) Pt to increase Yee score at least 5 points to 50/56 to improve her ability to balance on her boat when she and her travel up to [place] over the summer. LTG Duration 09/27/21 Two Impairment Bilateral hip MMT between 4-/5 to 2+/5 in all planes Button Sewer Hand Goal (LTG) Pt to increase bilateral hip strength to at least 4-/5 in all planes in order to improve sit<->stand ability and floor ->stand transfers LTG Duration 09/27/21 One Impairment Pt does not have an appropriate home exercise program Short Term Goal (STG) Pt to be independent and compliant with an appropriate HEP STG Duration 08/28/21 Assessment Summary Assessment Pt showing some improvement with her tandem gait and SLS, was experiencing some increased stiffness globally today. Physical Therapy Plan Frequency and Duration Frequency of Treatment 2x/Week Duration of Treatment 2 months Plan of Care Start Date 07/30/21 Plan of Care End Date 09/27/21 Therapeutic Interventions Therapeutic Interventions Balance Training,Gait Training ,Home Exercise Program,Manual Therapy,Neuromuscular Re- education,Patient/Caregiver Education,Self-Care/Home Management,Soft Tissue Mobilization,Therapeutic Exercises Next Visit Focus/Plan Next Note Type Treatment Note Next Visit Plan LE strengthening, balance training
--- NOTE | 2021-08-17 11:14 | PT.OTN ---
Current Diagnoses Adolescent idiopathic scoliosis, lumbar region (08/17/21) Spinal stenosis, lumbar region without neurogenic claudication (08/17/21) Muscle weakness (generalized) (08/17/21) Other abnormalities of gait and mobility (08/17/21) Other symptoms and signs involving the musculoskeletal system (08/17/21) Physical Therapy Treatment Note PT-OP-A Visit Information Start: 07/30/21 14:34 Freq: Status: Active Protocol: Document 08/17/21 10:30 DCW (Rec: 08/17/21 11:14 DCW [id number]) Out-Patient Physical Therapy Visit Information Visit Information Visit Type Treatment Note Visit Start Time 10:30 Visit Stop Time 11:15 Total Visit Minutes 45 Visit Number 6 Number of INDUSTRIAL LOCOMOTIVE OPERATOR Visits 0 Evaluation Information Evaluation Date 07/30/21 PT-OP-B Current Condition Start: 07/30/21 14:34 Freq: Status: Active Protocol: Document 07/30/21 10:30 DCW (Rec: 07/30/21 14:49 DCW [id number]) Current Condition History of Current Condition Onset Date Life-long history Current Complaints Weakness, back pain, instability History of Current Condition Pt is a 76 year old female presenting with a life-long history of back problems, beginning with congenital scoliosis. Pt reports that in the past, she has had physical therapy which in the past helped with her strength and balance, but never helped much with her back. Pt reports that she recently had injections, which has helped with her pain, but she is noticing some increased leg weakness. Since her back is feeling better, she would like to try to address her leg strength and balance before she and her take their boat to [place] for the summer . Pt also notes that at one point in 2019, she fell and hurt her left knee, and it didn't really heal right, and she is now unable to bend her knee more than 90?. Pt struggles to standing up from sitting or on the ground when she is out working in her yard . PT-OP-C Subjective Start: 07/30/21 14:34 Freq: Status: Active Protocol: Document 08/17/21 10:30 DCW (Rec: 08/17/21 11:14 DCW [id number]) OP-PT Subjective Patient Comments Patient Comments Pt walks in today with a slight limp, notes her right hip has stiffened up after spending most of the week working out in her yard. Also notes that her knee felt wonderful following joint mobs last visit. PT-OP-D Balance Start: 07/30/21 14:34 Freq: Status: Active Protocol: Document 07/30/21 10:30 DCW (Rec: 07/30/21 14:49 DCW [id number]) OP-PT Balance Assessment Sitting Balance Static Sitting Balance Ability Normal Dynamic Sitting Balance Ability Normal Standing Balance Static Standing Balance Ability Good Dynamic Standing Balance Ability Good Balance Tests Yee Balance Test Yee Balance Test Score 45/56 Yee Impairment Rating 1 to 19% Impaired (Score 45-55 ) Yee Balance Assessment Evaluation Sitting to Standing Ability Independent w/out Hands Unsupported Stance Safely- 2 minutes Sitting Unsupported, Feet on Floor Safely- 2 minutes Standing to Sitting Ability Safely, Minimal Hand Use Transfer Ability Safely, Minimal Hand Use Unsupported Stance- Eyes Closed Safely, 10 seconds Unsupported Stance- Eyes Open Supervision to maintain Reaching Forward Standing Safely, 5 inches Pick- Up Object From Floor Independent/Safe Look Behind Shoulder - Standing Shifts Weight Unilateral Turning 360 Degrees Supervision/Verbal Cues Unsupported Stance, Alternating Feet on (I)- 8 Steps in 20 secs Stair Unsupported Tandem Stance Small Step- 30 seconds Unilateral Leg Stance Lifts Leg/Unable to Hold Total Score Yee Total Score (out of 56 points) 45 Lopze Fall Scale Copyright Permission PT-OP-E Functional Tests Start: 07/30/21 14:34 Freq: Status: Active Protocol: Document 07/30/21 10:30 DCW (Rec: 07/30/21 14:54 DCW [id number]) Functional Tests 30 Second Sit to Stand Test Score 9 Timed Up and Go (TUG) Score 9.80 Comments Three-trial average (9.89, 9.8 , 9.71) TUG Impairment Rating 0% Impaired (Score 10) PT-OP-K Range of Motion Start: 07/30/21 14:34 Freq: Status: Active Protocol: Document 07/30/21 10:30 DCW (Rec: 07/30/21 14:54 DCW [id number]) Knee Goniometric Range of Motion Knee Right Knee ROM WFL Yes Patient Position Sitting Flexion Active (degrees) 120 Flexion Passive (degrees) 130 Extension Active (degrees) 0 Extension Passive (degrees) 0 Left Knee ROM WFL No Patient Position Sitting Flexion Active (degrees) 90 Flexion Passive (degrees) 90 Extension Active (degrees) 0 Extension Passive (degrees) 0 PT-OP-M Strength Start: 07/30/21 14:34 Freq: Status: Active Protocol: Document 07/30/21 10:30 DCW (Rec: 07/30/21 14:54 DCW [id number]) Hip Strength Hip Manual Muscle Testing Right Flexion (L2) 3+ Fair+ Extension (S1) 3 Fair Abduction 3- Fair- Adduction 4- Good- External Rotation 4 Good Internal Rotation 4 Good Left Flexion (L2) 3 Fair Extension (S1) 3+ Fair+ Abduction 2+ Poor+ Adduction 4- Good- External Rotation 4 Good Internal Rotation 4 Good Knee Strength Knee Manual Muscle Testing Right Flexion (S2) 4- Good- Extension (L3) 4- Good- Left Flexion (S2) 2+ Poor+ Extension (L3) 4- Good- Ankle/Foot Strength Ankle and Foot Manual Muscle Testing Right Dorsiflexion (L4) 4 Good Plantarflexion (S1) 4 Good Left Dorsiflexion (L4) 4 Good Plantarflexion (S1) 4 Good PT-OP-Q Treatments Start: 07/30/21 14:34 Freq: Status: Active Protocol: Document 08/17/21 10:30 DCW (Rec: 08/17/21 11:14 DCW [id number]) Cardio Equipment Recumbent Elliptical (Biodex) Duration (Minutes) 6 Resistance 6 Seat Position 9 Gym Equipment Shuttle Recovery Bilateral Heel Raises Details Heel raise Resistance 62# Shuttle Recovery Platform Stable Reps/Time 20 reps Unilateral Squats Resistance 62# Shuttle Recovery Platform Stable Reps/Time 2x10 Bilateral Squats Resistance 100# Shuttle Recovery Platform Unstable Reps/Time 2x15 Shuttle Balance red clips Details WBOS, Staggered Therapeutic Exercises Supine Exercises 1 Supine Exercise Name R Piriformis stretch Sidelying Exercises 3 Sidelying Exercise Name hip flexor stretch Manual Therapy Treatment Soft Tissue Mobilization iliacus Body Location R Mobilization Type Sustained Pressure glutes Body Location R Mobilization Type Sustained Pressure,Trigger Point Release Intensity/Depth Moderate Body Position Prone Joint Mobilizations Knee Joint L knee Direction P->A Grade III PT-OP-T Assessment and Plan Start: 07/30/21 14:34 Freq: Status: Active Protocol: Document 08/17/21 10:30 DCW (Rec: 08/17/21 11:14 [facility] [id number]) Physical Therapy Assessment Impairments Impairments Balance,Functional Activities, Functional Mobility,Pain,ROM, Strength Goals Three Impairment Pt scores 45/56 on Yee Balance scale Operations Advisor Goal (LTG) Pt to increase Yee score at least 5 points to 50/56 to improve her ability to balance on her boat when she and her travel up to [place] over the summer. LTG Duration 09/27/21 Two Impairment Bilateral hip MMT between 4-/5 to 2+/5 in all planes Operations Advisor Goal (LTG) Pt to increase bilateral hip strength to at least 4-/5 in all planes in order to improve sit<->stand ability and floor ->stand transfers LTG Duration 09/27/21 One Impairment Pt does not have an appropriate home exercise program Short Term Goal (STG) Pt to be independent and compliant with an appropriate HEP STG Duration 08/28/21 Assessment Summary Assessment Pt able to leave clinic without a limp following stretching and STM. Physical Therapy Plan Frequency and Duration Frequency of Treatment 2x/Week Duration of Treatment 2 months Plan of Care Start Date 07/30/21 Plan of Care End Date 09/27/21 Therapeutic Interventions Therapeutic Interventions Balance Training,Gait Training ,Home Exercise Program,Manual Therapy,Neuromuscular Re- education,Patient/Caregiver Education,Self-Care/Home Management,Soft Tissue Mobilization,Therapeutic Exercises Next Visit Focus/Plan Next Note Type Treatment Note Next Visit Plan LE strengthening, balance training
--- NOTE | 2021-08-20 11:11 | PT.OTN ---
Current Diagnoses Adolescent idiopathic scoliosis, lumbar region (08/20/21) Spinal stenosis, lumbar region without neurogenic claudication (08/20/21) Muscle weakness (generalized) (08/20/21) Other abnormalities of gait and mobility (08/20/21) Other symptoms and signs involving the musculoskeletal system (08/20/21) Physical Therapy Treatment Note PT-OP-A Visit Information Start: 07/30/21 14:34 Freq: Status: Active Protocol: Document 08/20/21 10:30 DCW (Rec: 08/20/21 11:11 DCW [id number]) Out-Patient Physical Therapy Visit Information Visit Information Visit Type Treatment Note Visit Start Time 10:30 Visit Stop Time 11:15 Total Visit Minutes 45 Visit Number 7 Number of SUPERVISOR LONG GOODS Visits 0 Evaluation Information Evaluation Date 07/30/21 PT-OP-B Current Condition Start: 07/30/21 14:34 Freq: Status: Active Protocol: Document 07/30/21 10:30 DCW (Rec: 07/30/21 14:49 DCW [id number]) Current Condition History of Current Condition Onset Date Life-long history Current Complaints Weakness, back pain, instability History of Current Condition Pt is a 76 year old female presenting with a life-long history of back problems, beginning with congenital scoliosis. Pt reports that in the past, she has had physical therapy which in the past helped with her strength and balance, but never helped much with her back. Pt reports that she recently had injections, which has helped with her pain, but she is noticing some increased leg weakness. Since her back is feeling better, she would like to try to address her leg strength and balance before she and her take their boat to [place] for the summer . Pt also notes that at one point in 2019, she fell and hurt her left knee, and it didn't really heal right, and she is now unable to bend her knee more than 90?. Pt struggles to standing up from sitting or on the ground when she is out working in her yard . PT-OP-C Subjective Start: 07/30/21 14:34 Freq: Status: Active Protocol: Document 08/20/21 10:30 DCW (Rec: 08/20/21 11:11 DCW [id number]) OP-PT Subjective Patient Comments Patient Comments I'm better than I deserve to be today. I left here on Friday, did some yard work, and fell flat when trying to dig a hole. But I'm feeling great right now. PT-OP-D Balance Start: 07/30/21 14:34 Freq: Status: Active Protocol: Document 07/30/21 10:30 DCW (Rec: 07/30/21 14:49 DCW [id number]) OP-PT Balance Assessment Sitting Balance Static Sitting Balance Ability Normal Dynamic Sitting Balance Ability Normal Standing Balance Static Standing Balance Ability Good Dynamic Standing Balance Ability Good Balance Tests Yee Balance Test Yee Balance Test Score 45/56 Yee Impairment Rating 1 to 19% Impaired (Score 45-55 ) Yee Balance Assessment Evaluation Sitting to Standing Ability Independent w/out Hands Unsupported Stance Safely- 2 minutes Sitting Unsupported, Feet on Floor Safely- 2 minutes Standing to Sitting Ability Safely, Minimal Hand Use Transfer Ability Safely, Minimal Hand Use Unsupported Stance- Eyes Closed Safely, 10 seconds Unsupported Stance- Eyes Open Supervision to maintain Reaching Forward Standing Safely, 5 inches Pick- Up Object From Floor Independent/Safe Look Behind Shoulder - Standing Shifts Weight Unilateral Turning 360 Degrees Supervision/Verbal Cues Unsupported Stance, Alternating Feet on (I)- 8 Steps in 20 secs Stair Unsupported Tandem Stance Small Step- 30 seconds Unilateral Leg Stance Lifts Leg/Unable to Hold Total Score Yee Total Score (out of 56 points) 45 Lopez Fall Scale Copyright Permission PT-OP-E Functional Tests Start: 07/30/21 14:34 Freq: Status: Active Protocol: Document 07/30/21 10:30 DCW (Rec: 07/30/21 14:54 DCW [id number]) Functional Tests 30 Second Sit to Stand Test Score 9 Timed Up and Go (TUG) Score 9.80 Comments Three-trial average (9.89, 9.8 , 9.71) TUG Impairment Rating 0% Impaired (Score 10) PT-OP-K Range of Motion Start: 07/30/21 14:34 Freq: Status: Active Protocol: Document 07/30/21 10:30 DCW (Rec: 07/30/21 14:54 DCW [id number]) Knee Goniometric Range of Motion Knee Right Knee ROM WFL Yes Patient Position Sitting Flexion Active (degrees) 120 Flexion Passive (degrees) 130 Extension Active (degrees) 0 Extension Passive (degrees) 0 Left Knee ROM WFL No Patient Position Sitting Flexion Active (degrees) 90 Flexion Passive (degrees) 90 Extension Active (degrees) 0 Extension Passive (degrees) 0 PT-OP-M Strength Start: 07/30/21 14:34 Freq: Status: Active Protocol: Document 07/30/21 10:30 DCW (Rec: 07/30/21 14:54 DCW [id number]) Hip Strength Hip Manual Muscle Testing Right Flexion (L2) 3+ Fair+ Extension (S1) 3 Fair Abduction 3- Fair- Adduction 4- Good- External Rotation 4 Good Internal Rotation 4 Good Left Flexion (L2) 3 Fair Extension (S1) 3+ Fair+ Abduction 2+ Poor+ Adduction 4- Good- External Rotation 4 Good Internal Rotation 4 Good Knee Strength Knee Manual Muscle Testing Right Flexion (S2) 4- Good- Extension (L3) 4- Good- Left Flexion (S2) 2+ Poor+ Extension (L3) 4- Good- Ankle/Foot Strength Ankle and Foot Manual Muscle Testing Right Dorsiflexion (L4) 4 Good Plantarflexion (S1) 4 Good Left Dorsiflexion (L4) 4 Good Plantarflexion (S1) 4 Good PT-OP-Q Treatments Start: 07/30/21 14:34 Freq: Status: Active Protocol: Document 08/20/21 10:30 DCW (Rec: 08/20/21 11:11 DCW [id number]) Cardio Equipment Recumbent Elliptical (Biodex) Duration (Minutes) 6 Resistance 7 Seat Position 9 Gym Equipment Shuttle Recovery Bilateral Heel Raises Details Heel raise Resistance 62# Shuttle Recovery Platform Stable Reps/Time 20 reps Unilateral Squats Resistance 62# Shuttle Recovery Platform Stable Reps/Time 2x10 Bilateral Squats Resistance 100# Shuttle Recovery Platform Unstable Reps/Time 2x15 Shuttle Balance red clips Details WBOS, Staggered Therapeutic Exercises Sitting Exercises 1 Sitting Exercise Name HS curls Side bilateral Resistance Lv 2 Equipment Used T-band Standing Exercises 1 Standing Exercise Name Hip Extension Side bilateral Resistance Red Equipment Used T-band Other Exercises 1 Other Exercise Name Resisted side-stepping, forward, backward Resistance Red Equipment Used T-band Manual Therapy Treatment Joint Mobilizations Knee Joint L knee Direction P->A Grade III PT-OP-T Assessment and Plan Start: 07/30/21 14:34 Freq: Status: Active Protocol: Document 08/20/21 10:30 DCW (Rec: 08/20/21 11:11 [id number]) Physical Therapy Assessment Impairments Impairments Balance,Functional Activities, Functional Mobility,Pain,ROM, Strength Goals Three Impairment Pt scores 45/56 on Yee Balance scale Railroad Firer/Fireman Goal (LTG) Pt to increase Yee score at least 5 points to 50/56 to improve her ability to balance on her boat when she and her travel up to [place] over the summer. LTG Duration 09/27/21 Two Impairment Bilateral hip MMT between 4-/5 to 2+/5 in all planes Railroad Firer/Fireman Goal (LTG) Pt to increase bilateral hip strength to at least 4-/5 in all planes in order to improve sit<->stand ability and floor ->stand transfers LTG Duration 09/27/21 One Impairment Pt does not have an appropriate home exercise program Short Term Goal (STG) Pt to be independent and compliant with an appropriate HEP STG Duration 08/28/21 Assessment Summary Assessment Pt walking much better today, showing improvement with balance and stability, improving hip strength. Physical Therapy Plan Frequency and Duration Frequency of Treatment 2x/Week Duration of Treatment 2 months Plan of Care Start Date 07/30/21 Plan of Care End Date 09/27/21 Therapeutic Interventions Therapeutic Interventions Balance Training,Gait Training ,Home Exercise Program,Manual Therapy,Neuromuscular Re- education,Patient/Caregiver Education,Self-Care/Home Management,Soft Tissue Mobilization,Therapeutic Exercises Next Visit Focus/Plan Next Note Type Treatment Note Next Visit Plan LE strengthening, balance training
--- NOTE | 2021-08-24 11:12 | PT.OTN ---
Current Diagnoses Adolescent idiopathic scoliosis, lumbar region (08/24/21) Spinal stenosis, lumbar region without neurogenic claudication (08/24/21) Muscle weakness (generalized) (08/24/21) Other abnormalities of gait and mobility (08/24/21) Other symptoms and signs involving the musculoskeletal system (08/24/21) Physical Therapy Treatment Note PT-OP-A Visit Information Start: 07/30/21 14:34 Freq: Status: Active Protocol: Document 08/24/21 10:30 DCW (Rec: 08/24/21 11:12 DCW [id number]) Out-Patient Physical Therapy Visit Information Visit Information Visit Type Treatment Note Visit Start Time 10:30 Visit Stop Time 11:15 Total Visit Minutes 45 Visit Number 8 Number of RADIO TALK SHOW HOST Visits 0 Evaluation Information Evaluation Date 07/30/21 PT-OP-B Current Condition Start: 07/30/21 14:34 Freq: Status: Active Protocol: Document 07/30/21 10:30 DCW (Rec: 07/30/21 14:49 DCW [id number]) Current Condition History of Current Condition Onset Date Life-long history Current Complaints Weakness, back pain, instability History of Current Condition Pt is a 76 year old female presenting with a life-long history of back problems, beginning with congenital scoliosis. Pt reports that in the past, she has had physical therapy which in the past helped with her strength and balance, but never helped much with her back. Pt reports that she recently had injections, which has helped with her pain, but she is noticing some increased leg weakness. Since her back is feeling better, she would like to try to address her leg strength and balance before she and her take their boat to [place] for the summer . Pt also notes that at one point in 2019, she fell and hurt her left knee, and it didn't really heal right, and she is now unable to bend her knee more than 90?. Pt struggles to standing up from sitting or on the ground when she is out working in her yard . PT-OP-C Subjective Start: 07/30/21 14:34 Freq: Status: Active Protocol: Document 08/24/21 10:30 DCW (Rec: 08/24/21 11:12 DCW [id number]) OP-PT Subjective Patient Comments Patient Comments Pt had her dental procedure performed on Friday, had multiple teeth removed, but there was not any pain at all. PT-OP-D Balance Start: 07/30/21 14:34 Freq: Status: Active Protocol: Document 07/30/21 10:30 DCW (Rec: 07/30/21 14:49 DCW [id number]) OP-PT Balance Assessment Sitting Balance Static Sitting Balance Ability Normal Dynamic Sitting Balance Ability Normal Standing Balance Static Standing Balance Ability Good Dynamic Standing Balance Ability Good Balance Tests Yee Balance Test Yee Balance Test Score 45/56 Yee Impairment Rating 1 to 19% Impaired (Score 45-55 ) Yee Balance Assessment Evaluation Sitting to Standing Ability Independent w/out Hands Unsupported Stance Safely- 2 minutes Sitting Unsupported, Feet on Floor Safely- 2 minutes Standing to Sitting Ability Safely, Minimal Hand Use Transfer Ability Safely, Minimal Hand Use Unsupported Stance- Eyes Closed Safely, 10 seconds Unsupported Stance- Eyes Open Supervision to maintain Reaching Forward Standing Safely, 5 inches Pick- Up Object From Floor Independent/Safe Look Behind Shoulder - Standing Shifts Weight Unilateral Turning 360 Degrees Supervision/Verbal Cues Unsupported Stance, Alternating Feet on (I)- 8 Steps in 20 secs Stair Unsupported Tandem Stance Small Step- 30 seconds Unilateral Leg Stance Lifts Leg/Unable to Hold Total Score Yee Total Score (out of 56 points) 45 Lopez Fall Scale Copyright Permission PT-OP-E Functional Tests Start: 07/30/21 14:34 Freq: Status: Active Protocol: Document 07/30/21 10:30 DCW (Rec: 07/30/21 14:54 DCW [id number]) Functional Tests 30 Second Sit to Stand Test Score 9 Timed Up and Go (TUG) Score 9.80 Comments Three-trial average (9.89, 9.8 , 9.71) TUG Impairment Rating 0% Impaired (Score 10) PT-OP-K Range of Motion Start: 07/30/21 14:34 Freq: Status: Active Protocol: Document 07/30/21 10:30 DCW (Rec: 07/30/21 14:54 DCW [id number]) Knee Goniometric Range of Motion Knee Right Knee ROM WFL Yes Patient Position Sitting Flexion Active (degrees) 120 Flexion Passive (degrees) 130 Extension Active (degrees) 0 Extension Passive (degrees) 0 Left Knee ROM WFL No Patient Position Sitting Flexion Active (degrees) 90 Flexion Passive (degrees) 90 Extension Active (degrees) 0 Extension Passive (degrees) 0 PT-OP-M Strength Start: 07/30/21 14:34 Freq: Status: Active Protocol: Document 07/30/21 10:30 DCW (Rec: 07/30/21 14:54 DCW [id number]) Hip Strength Hip Manual Muscle Testing Right Flexion (L2) 3+ Fair+ Extension (S1) 3 Fair Abduction 3- Fair- Adduction 4- Good- External Rotation 4 Good Internal Rotation 4 Good Left Flexion (L2) 3 Fair Extension (S1) 3+ Fair+ Abduction 2+ Poor+ Adduction 4- Good- External Rotation 4 Good Internal Rotation 4 Good Knee Strength Knee Manual Muscle Testing Right Flexion (S2) 4- Good- Extension (L3) 4- Good- Left Flexion (S2) 2+ Poor+ Extension (L3) 4- Good- Ankle/Foot Strength Ankle and Foot Manual Muscle Testing Right Dorsiflexion (L4) 4 Good Plantarflexion (S1) 4 Good Left Dorsiflexion (L4) 4 Good Plantarflexion (S1) 4 Good PT-OP-Q Treatments Start: 07/30/21 14:34 Freq: Status: Active Protocol: Document 08/24/21 10:30 DCW (Rec: 08/24/21 11:12 DCW [id number]) Cardio Equipment Recumbent Elliptical (BiodPoup) Duration (Minutes) 6 Resistance 7 Seat Position 9 Gym Equipment Shuttle Recovery Bilateral Heel Raises Details Heel raise Resistance 62# Shuttle Recovery Platform Stable Reps/Time 20 reps Unilateral Squats Resistance 62# Shuttle Recovery Platform Stable Reps/Time 2x10 Bilateral Squats Resistance 100# Shuttle Recovery Platform Unstable Reps/Time 2x15 Shuttle Balance red clips Details WBOS, Staggered Therapeutic Exercises Standing Exercises 1 Standing Exercise Name Hip Extension Side bilateral Resistance Red Equipment Used T-band Other Exercises 1 Other Exercise Name Resisted side-stepping, forward, backward Resistance Red Equipment Used T-band Manual Therapy Treatment Joint Mobilizations Knee Joint L knee Direction P->A Grade III PT-OP-T Assessment and Plan Start: 07/30/21 14:34 Freq: Status: Active Protocol: Document 08/24/21 10:30 DCW (Rec: 08/24/21 11:12 DCW [id number]) Physical Therapy Assessment Impairments Impairments Balance,Functional Activities, Functional Mobility,Pain,ROM, Strength Goals Three Impairment Pt scores 45/56 on Yee Balance scale Water And Gas Helper Goal (LTG) Pt to increase Yee score at least 5 points to 50/56 to improve her ability to balance on her boat when she and her travel up to [place] over the summer. LTG Duration 09/27/21 Two Impairment Bilateral hip MMT between 4-/5 to 2+/5 in all planes Alf Goal (LTG) Pt to increase bilateral hip strength to at least 4-/5 in all planes in order to improve sit<->stand ability and floor ->stand transfers LTG Duration 09/27/21 One Impairment Pt does not have an appropriate home exercise program Short Term Goal (STG) Pt to be independent and compliant with an appropriate HEP STG Duration 08/28/21 Assessment Summary Assessment Pt would prefer to perform reassessment next visit to determine how much progress she has made so far and to decide if she should schedule more visits. Physical Therapy Plan Frequency and Duration Frequency of Treatment 2x/Week Duration of Treatment 2 months Plan of Care Start Date 07/30/21 Plan of Care End Date 09/27/21 Therapeutic Interventions Therapeutic Interventions Balance Training,Gait Training ,Home Exercise Program,Manual Therapy,Neuromuscular Re- education,Patient/Caregiver Education,Self-Care/Home Management,Soft Tissue Mobilization,Therapeutic Exercises Next Visit Focus/Plan Next Note Type Progress Note Next Visit Plan LE strengthening, balance training
--- NOTE | 2021-08-27 11:14 | PT.OTN ---
Current Diagnoses Adolescent idiopathic scoliosis, lumbar region (08/27/21) Spinal stenosis, lumbar region without neurogenic claudication (08/27/21) Muscle weakness (generalized) (08/27/21) Other abnormalities of gait and mobility (08/27/21) Other symptoms and signs involving the musculoskeletal system (08/27/21) Physical Therapy Treatment Note PT-OP-A Visit Information Start: 07/30/21 14:34 Freq: Status: Active Protocol: Document 08/27/21 10:30 DCW (Rec: 08/27/21 11:14 DCW [id number]) Out-Patient Physical Therapy Visit Information Visit Information Visit Type Treatment Note Visit Start Time 10:30 Visit Stop Time 11:15 Total Visit Minutes 45 Visit Number 9 Number of EMPLOYMENT PROGRAMS ANALYST Visits 0 Evaluation Information Evaluation Date 07/30/21 PT-OP-B Current Condition Start: 07/30/21 14:34 Freq: Status: Active Protocol: Document 07/30/21 10:30 DCW (Rec: 07/30/21 14:49 DCW [id number]) Current Condition History of Current Condition Onset Date Life-long history Current Complaints Weakness, back pain, instability History of Current Condition Pt is a 76 year old female presenting with a life-long history of back problems, beginning with congenital scoliosis. Pt reports that in the past, she has had physical therapy which in the past helped with her strength and balance, but never helped much with her back. Pt reports that she recently had injections, which has helped with her pain, but she is noticing some increased leg weakness. Since her back is feeling better, she would like to try to address her leg strength and balance before she and her take their boat to [place] for the summer . Pt also notes that at one point in 2019, she fell and hurt her left knee, and it didn't really heal right, and she is now unable to bend her knee more than 90?. Pt struggles to standing up from sitting or on the ground when she is out working in her yard . PT-OP-C Subjective Start: 07/30/21 14:34 Freq: Status: Active Protocol: Document 08/27/21 10:30 DCW (Rec: 08/27/21 11:14 DCW [id number]) OP-PT Subjective Patient Comments Patient Comments I feel like I'm stronger, on the whole I have better balance, I have noticed I still don't have quite the same ability to stand up without touching something. PT-OP-D Balance Start: 07/30/21 14:34 Freq: Status: Active Protocol: Document 07/30/21 10:30 DCW (Rec: 07/30/21 14:49 DCW [id number]) OP-PT Balance Assessment Sitting Balance Static Sitting Balance Ability Normal Dynamic Sitting Balance Ability Normal Standing Balance Static Standing Balance Ability Good Dynamic Standing Balance Ability Good Balance Tests Yee Balance Test Yee Balance Test Score 45/56 Yee Impairment Rating 1 to 19% Impaired (Score 45-55 ) Yee Balance Assessment Evaluation Sitting to Standing Ability Independent w/out Hands Unsupported Stance Safely- 2 minutes Sitting Unsupported, Feet on Floor Safely- 2 minutes Standing to Sitting Ability Safely, Minimal Hand Use Transfer Ability Safely, Minimal Hand Use Unsupported Stance- Eyes Closed Safely, 10 seconds Unsupported Stance- Eyes Open Supervision to maintain Reaching Forward Standing Safely, 5 inches Pick- Up Object From Floor Independent/Safe Look Behind Shoulder - Standing Shifts Weight Unilateral Turning 360 Degrees Supervision/Verbal Cues Unsupported Stance, Alternating Feet on (I)- 8 Steps in 20 secs Stair Unsupported Tandem Stance Small Step- 30 seconds Unilateral Leg Stance Lifts Leg/Unable to Hold Total Score Yee Total Score (out of 56 points) 45 Lopez Fall Scale Copyright Permission PT-OP-E Functional Tests Start: 07/30/21 14:34 Freq: Status: Active Protocol: Document 07/30/21 10:30 DCW (Rec: 07/30/21 14:54 DCW [id number]) Functional Tests 30 Second Sit to Stand Test Score 9 Timed Up and Go (TUG) Score 9.80 Comments Three-trial average (9.89, 9.8 , 9.71) TUG Impairment Rating 0% Impaired (Score 10) PT-OP-K Range of Motion Start: 07/30/21 14:34 Freq: Status: Active Protocol: Document 07/30/21 10:30 DCW (Rec: 07/30/21 14:54 DCW [id number]) Knee Goniometric Range of Motion Knee Right Knee ROM WFL Yes Patient Position Sitting Flexion Active (degrees) 120 Flexion Passive (degrees) 130 Extension Active (degrees) 0 Extension Passive (degrees) 0 Left Knee ROM WFL No Patient Position Sitting Flexion Active (degrees) 90 Flexion Passive (degrees) 90 Extension Active (degrees) 0 Extension Passive (degrees) 0 PT-OP-M Strength Start: 07/30/21 14:34 Freq: Status: Active Protocol: Document 07/30/21 10:30 DCW (Rec: 07/30/21 14:54 DCW [id number]) Hip Strength Hip Manual Muscle Testing Right Flexion (L2) 3+ Fair+ Extension (S1) 3 Fair Abduction 3- Fair- Adduction 4- Good- External Rotation 4 Good Internal Rotation 4 Good Left Flexion (L2) 3 Fair Extension (S1) 3+ Fair+ Abduction 2+ Poor+ Adduction 4- Good- External Rotation 4 Good Internal Rotation 4 Good Knee Strength Knee Manual Muscle Testing Right Flexion (S2) 4- Good- Extension (L3) 4- Good- Left Flexion (S2) 2+ Poor+ Extension (L3) 4- Good- Ankle/Foot Strength Ankle and Foot Manual Muscle Testing Right Dorsiflexion (L4) 4 Good Plantarflexion (S1) 4 Good Left Dorsiflexion (L4) 4 Good Plantarflexion (S1) 4 Good PT-OP-Q Treatments Start: 07/30/21 14:34 Freq: Status: Active Protocol: Document 08/27/21 10:30 DCW (Rec: 08/27/21 11:14 DCW [id number]) Cardio Equipment Recumbent Elliptical (Biodex) Duration (Minutes) 6 Resistance 7 Seat Position 9 Gym Equipment Shuttle Recovery Bilateral Heel Raises Details Heel raise Resistance 62# Shuttle Recovery Platform Stable Reps/Time 20 reps Unilateral Squats Resistance 62# Shuttle Recovery Platform Stable Reps/Time 2x10 Bilateral Squats Resistance 100# Shuttle Recovery Platform Unstable Reps/Time 2x15 Therapeutic Exercises Standing Exercises 1 Standing Exercise Name Hip Extension Side bilateral Resistance Red Equipment Used T-band Other Exercises 1 Other Exercise Name Resisted side-stepping, forward, backward Resistance Red Equipment Used T-band Manual Therapy Treatment Joint Mobilizations Knee Joint L knee Direction P->A Grade III Neuro Re-Education Treatment Balance Activities Foam Stance Details NBOS Surface Black pad EC Details Tandem stance Surface firm Single Limb Standing Details SLS Equipment // bars hurdles Equipment 6 hurdles Comments fwd x4 side x2 B PT-OP-T Assessment and Plan Start: 07/30/21 14:34 Freq: Status: Active Protocol: Document 08/27/21 10:30 DCW (Rec: 08/27/21 11:14 DC [id number]) Physical Therapy Assessment Impairments Impairments Balance,Functional Activities, Functional Mobility,Pain,ROM, Strength Goals Three Impairment Pt scores 45/56 on Yee Balance scale Assisted Goal (LTG) Pt to increase Yee score at least 5 points to 50/56 to improve her ability to balance on her boat when she and her travel up to [place] over the summer. LTG Duration 09/27/21 Two Impairment Bilateral hip MMT between 4-/5 to 2+/5 in all planes Maternal Child Nurse Goal (LTG) Pt to increase bilateral hip strength to at least 4-/5 in all planes in order to improve sit<->stand ability and floor ->stand transfers LTG Duration 09/27/21 One Impairment Pt does not have an appropriate home exercise program Short Term Goal (STG) Pt to be independent and compliant with an appropriate HEP STG Duration 08/28/21 Assessment Summary Assessment Pt doing very well today, noted improvement with balance and LE strength. Tolerating treatment well. Physical Therapy Plan Frequency and Duration Frequency of Treatment 2x/Week Duration of Treatment 2 months Plan of Care Start Date 07/30/21 Plan of Care End Date 09/27/21 Therapeutic Interventions Therapeutic Interventions Balance Training,Gait Training ,Home Exercise Program,Manual Therapy,Neuromuscular Re- education,Patient/Caregiver Education,Self-Care/Home Management,Soft Tissue Mobilization,Therapeutic Exercises Next Visit Focus/Plan Next Note Type Progress Note Next Visit Plan LE strengthening, balance training
--- NOTE | 2021-08-31 11:10 | PT.OTN ---
Current Diagnoses Adolescent idiopathic scoliosis, lumbar region (08/31/21) Spinal stenosis, lumbar region without neurogenic claudication (08/31/21) Muscle weakness (generalized) (08/31/21) Other abnormalities of gait and mobility (08/31/21) Other symptoms and signs involving the musculoskeletal system (08/31/21) Physical Therapy Treatment Note PT-OP-A Visit Information Start: 07/30/21 14:34 Freq: Status: Active Protocol: Document 08/31/21 10:30 DCW (Rec: 08/31/21 11:10 DCW [id number]) Out-Patient Physical Therapy Visit Information Visit Information Visit Type Treatment Note Visit Start Time 10:30 Visit Stop Time 11:15 Total Visit Minutes 45 Visit Number 10 Number of AIRFIELD MANAGER Visits 0 Evaluation Information Evaluation Date 07/30/21 PT-OP-B Current Condition Start: 07/30/21 14:34 Freq: Status: Active Protocol: Document 07/30/21 10:30 DCW (Rec: 07/30/21 14:49 DCW [id number]) Current Condition History of Current Condition Onset Date Life-long history Current Complaints Weakness, back pain, instability History of Current Condition Pt is a 76 year old female presenting with a life-long history of back problems, beginning with congenital scoliosis. Pt reports that in the past, she has had physical therapy which in the past helped with her strength and balance, but never helped much with her back. Pt reports that she recently had injections, which has helped with her pain, but she is noticing some increased leg weakness. Since her back is feeling better, she would like to try to address her leg strength and balance before she and her take their boat to [place] for the summer . Pt also notes that at one point in 2019, she fell and hurt her left knee, and it didn't really heal right, and she is now unable to bend her knee more than 90?. Pt struggles to standing up from sitting or on the ground when she is out working in her yard . PT-OP-C Subjective Start: 07/30/21 14:34 Freq: Status: Active Protocol: Document 08/31/21 10:30 DCW (Rec: 08/31/21 11:10 DCW [id number]) OP-PT Subjective Patient Comments Patient Comments Pt reports her has been having some medical issues, so she's had a somewhat stressful week. PT-OP-D Balance Start: 07/30/21 14:34 Freq: Status: Active Protocol: Document 07/30/21 10:30 DCW (Rec: 07/30/21 14:49 DCW [id number]) OP-PT Balance Assessment Sitting Balance Static Sitting Balance Ability Normal Dynamic Sitting Balance Ability Normal Standing Balance Static Standing Balance Ability Good Dynamic Standing Balance Ability Good Balance Tests Yee Balance Test Yee Balance Test Score 45/56 Yee Impairment Rating 1 to 19% Impaired (Score 45-55 ) Yee Balance Assessment Evaluation Sitting to Standing Ability Independent w/out Hands Unsupported Stance Safely- 2 minutes Sitting Unsupported, Feet on Floor Safely- 2 minutes Standing to Sitting Ability Safely, Minimal Hand Use Transfer Ability Safely, Minimal Hand Use Unsupported Stance- Eyes Closed Safely, 10 seconds Unsupported Stance- Eyes Open Supervision to maintain Reaching Forward Standing Safely, 5 inches Pick- Up Object From Floor Independent/Safe Look Behind Shoulder - Standing Shifts Weight Unilateral Turning 360 Degrees Supervision/Verbal Cues Unsupported Stance, Alternating Feet on (I)- 8 Steps in 20 secs Stair Unsupported Tandem Stance Small Step- 30 seconds Unilateral Leg Stance Lifts Leg/Unable to Hold Total Score Yee Total Score (out of 56 points) 45 Lopez Fall Scale Copyright Permission PT-OP-E Functional Tests Start: 07/30/21 14:34 Freq: Status: Active Protocol: Document 07/30/21 10:30 DCW (Rec: 07/30/21 14:54 DCW [id number]) Functional Tests 30 Second Sit to Stand Test Score 9 Timed Up and Go (TUG) Score 9.80 Comments Three-trial average (9.89, 9.8 , 9.71) TUG Impairment Rating 0% Impaired (Score 10) PT-OP-K Range of Motion Start: 07/30/21 14:34 Freq: Status: Active Protocol: Document 07/30/21 10:30 DCW (Rec: 07/30/21 14:54 DCW [id number]) Knee Goniometric Range of Motion Knee Right Knee ROM WFL Yes Patient Position Sitting Flexion Active (degrees) 120 Flexion Passive (degrees) 130 Extension Active (degrees) 0 Extension Passive (degrees) 0 Left Knee ROM WFL No Patient Position Sitting Flexion Active (degrees) 90 Flexion Passive (degrees) 90 Extension Active (degrees) 0 Extension Passive (degrees) 0 PT-OP-M Strength Start: 07/30/21 14:34 Freq: Status: Active Protocol: Document 07/30/21 10:30 DCW (Rec: 07/30/21 14:54 DCW [id number]) Hip Strength Hip Manual Muscle Testing Right Flexion (L2) 3+ Fair+ Extension (S1) 3 Fair Abduction 3- Fair- Adduction 4- Good- External Rotation 4 Good Internal Rotation 4 Good Left Flexion (L2) 3 Fair Extension (S1) 3+ Fair+ Abduction 2+ Poor+ Adduction 4- Good- External Rotation 4 Good Internal Rotation 4 Good Knee Strength Knee Manual Muscle Testing Right Flexion (S2) 4- Good- Extension (L3) 4- Good- Left Flexion (S2) 2+ Poor+ Extension (L3) 4- Good- Ankle/Foot Strength Ankle and Foot Manual Muscle Testing Right Dorsiflexion (L4) 4 Good Plantarflexion (S1) 4 Good Left Dorsiflexion (L4) 4 Good Plantarflexion (S1) 4 Good PT-OP-Q Treatments Start: 07/30/21 14:34 Freq: Status: Active Protocol: Document 08/31/21 10:30 DCW (Rec: 08/31/21 11:10 DCW [id number]) Cardio Equipment Recumbent Elliptical (Biodex) Duration (Minutes) 6 Resistance 7 Seat Position 9 Gym Equipment Shuttle Recovery Bilateral Heel Raises Details Heel raise Resistance 62# Shuttle Recovery Platform Stable Reps/Time 20 reps Unilateral Squats Resistance 62# Shuttle Recovery Platform Stable Reps/Time 2x10 Bilateral Squats Resistance 100# Shuttle Recovery Platform Unstable Reps/Time 2x15 Therapeutic Exercises Standing Exercises 1 Standing Exercise Name Hip Extension Side bilateral Resistance Red Equipment Used T-band Other Exercises 1 Other Exercise Name Resisted side-stepping, forward, backward Resistance Red Equipment Used T-band Manual Therapy Treatment Joint Mobilizations Knee Joint L knee Direction P->A Grade III Neuro Re-Education Treatment Balance Activities Foam Stance Details SLS Surface Black pad EC Details Tandem stance Surface firm hurdles Equipment 6 hurdles Comments fwd x4 side x2 B PT-OP-T Assessment and Plan Start: 07/30/21 14:34 Freq: Status: Active Protocol: Document 08/31/21 10:30 DCW (Rec: 08/31/21 11:10 DCW [id number]) Physical Therapy Assessment Impairments Impairments Balance,Functional Activities, Functional Mobility,Pain,ROM, Strength Goals Three Impairment Pt scores 45/56 on Yee Balance scale [facility] Goal (LTG) Pt to increase Yee score at least 5 points to 50/56 to improve her ability to balance on her boat when she and her travel up to [place] over the summer. LTG Duration 09/27/21 Two Impairment Bilateral hip MMT between 4-/5 to 2+/5 in all planes [facility] Goal (LTG) Pt to increase bilateral hip strength to at least 4-/5 in all planes in order to improve sit<->stand ability and floor ->stand transfers LTG Duration 09/27/21 One Impairment Pt does not have an appropriate home exercise program Short Term Goal (STG) Pt to be independent and compliant with an appropriate HEP STG Duration 08/28/21 Assessment Summary Assessment Pt making good progress, feels balance and leg strength is improved. Will likely discharge following appointments next week. Physical Therapy Plan Frequency and Duration Frequency of Treatment 2x/Week Duration of Treatment 2 months Plan of Care Start Date 07/30/21 Plan of Care End Date 09/27/21 Therapeutic Interventions Therapeutic Interventions Balance Training,Gait Training ,Home Exercise Program,Manual Therapy,Neuromuscular Re- education,Patient/Caregiver Education,Self-Care/Home Management,Soft Tissue Mobilization,Therapeutic Exercises Next Visit Focus/Plan Next Note Type Treatment Note Next Visit Plan LE strengthening, balance training
--- NOTE | 2021-09-03 16:42 | PT.OTN ---
Current Diagnoses Adolescent idiopathic scoliosis, lumbar region (09/03/21) Spinal stenosis, lumbar region without neurogenic claudication (09/03/21) Muscle weakness (generalized) (09/03/21) Other abnormalities of gait and mobility (09/03/21) Other symptoms and signs involving the musculoskeletal system (09/03/21) Physical Therapy Treatment Note PT-OP-A Visit Information Start: 07/30/21 14:34 Freq: Status: Active Protocol: Document 09/03/21 15:58 DCW (Rec: 09/03/21 16:41 DCW [id number]) Out-Patient Physical Therapy Visit Information Visit Information Visit Type Treatment Note Visit Start Time 15:58 Visit Stop Time 16:43 Total Visit Minutes 45 Visit Number 11 Number of OCCUPATIONAL THERAPY ASSISTANT Visits 0 Evaluation Information Evaluation Date 07/30/21 PT-OP-B Current Condition Start: 07/30/21 14:34 Freq: Status: Active Protocol: Document 07/30/21 10:30 DCW (Rec: 07/30/21 14:49 DCW [id number]) Current Condition History of Current Condition Onset Date Life-long history Current Complaints Weakness, back pain, instability History of Current Condition Pt is a 76 year old female presenting with a life-long history of back problems, beginning with congenital scoliosis. Pt reports that in the past, she has had physical therapy which in the past helped with her strength and balance, but never helped much with her back. Pt reports that she recently had injections, which has helped with her pain, but she is noticing some increased leg weakness. Since her back is feeling better, she would like to try to address her leg strength and balance before she and her take their boat to [place] for the summer . Pt also notes that at one point in 2019, she fell and hurt her left knee, and it didn't really heal right, and she is now unable to bend her knee more than 90?. Pt struggles to standing up from sitting or on the ground when she is out working in her yard . 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 PT-OP-D Balance Start: 07/30/21 14:34 Freq: Status: Active Protocol: Document 07/30/21 10:30 DCW (Rec: 07/30/21 14:49 DCW [id number]) OP-PT Balance Assessment Sitting Balance Static Sitting Balance Ability Normal Dynamic Sitting Balance Ability Normal Standing Balance Static Standing Balance Ability Good Dynamic Standing Balance Ability Good Balance Tests Yee Balance Test Yee Balance Test Score 45/56 Yee Impairment Rating 1 to 19% Impaired (Score 45-55 ) Yee Balance Assessment Evaluation Sitting to Standing Ability Independent w/out Hands Unsupported Stance Safely- 2 minutes Sitting Unsupported, Feet on Floor Safely- 2 minutes Standing to Sitting Ability Safely, Minimal Hand Use Transfer Ability Safely, Minimal Hand Use Unsupported Stance- Eyes Closed Safely, 10 seconds Unsupported Stance- Eyes Open Supervision to maintain Reaching Forward Standing Safely, 5 inches Pick- Up Object From Floor Independent/Safe Look Behind Shoulder - Standing Shifts Weight Unilateral Turning 360 Degrees Supervision/Verbal Cues Unsupported Stance, Alternating Feet on (I)- 8 Steps in 20 secs Stair Unsupported Tandem Stance Small Step- 30 seconds Unilateral Leg Stance Lifts Leg/Unable to Hold Total Score Yee Total Score (out of 56 points) 45 Lopez Fall Scale Copyright Permission PT-OP-E Functional Tests Start: 07/30/21 14:34 Freq: Status: Active Protocol: Document 07/30/21 10:30 DCW (Rec: 07/30/21 14:54 DCW [id number]) Functional Tests 30 Second Sit to Stand Test Score 9 Timed Up and Go (TUG) Score 9.80 Comments Three-trial average (9.89, 9.8 , 9.71) TUG Impairment Rating 0% Impaired (Score 10) PT-OP-K Range of Motion Start: 07/30/21 14:34 Freq: Status: Active Protocol: Document 07/30/21 10:30 DCW (Rec: 07/30/21 14:54 DCW [id number]) Knee Goniometric Range of Motion Knee Right Knee ROM WFL Yes Patient Position Sitting Flexion Active (degrees) 120 Flexion Passive (degrees) 130 Extension Active (degrees) 0 Extension Passive (degrees) 0 Left Knee ROM WFL No Patient Position Sitting Flexion Active (degrees) 90 Flexion Passive (degrees) 90 Extension Active (degrees) 0 Extension Passive (degrees) 0 PT-OP-M Strength Start: 07/30/21 14:34 Freq: Status: Active Protocol: Document 07/30/21 10:30 DCW (Rec: 07/30/21 14:54 DCW [id number]) Hip Strength Hip Manual Muscle Testing Right Flexion (L2) 3+ Fair+ Extension (S1) 3 Fair Abduction 3- Fair- Adduction 4- Good- External Rotation 4 Good Internal Rotation 4 Good Left Flexion (L2) 3 Fair Extension (S1) 3+ Fair+ Abduction 2+ Poor+ Adduction 4- Good- External Rotation 4 Good Internal Rotation 4 Good Knee Strength Knee Manual Muscle Testing Right Flexion (S2) 4- Good- Extension (L3) 4- Good- Left Flexion (S2) 2+ Poor+ Extension (L3) 4- Good- Ankle/Foot Strength Ankle and Foot Manual Muscle Testing Right Dorsiflexion (L4) 4 Good Plantarflexion (S1) 4 Good Left Dorsiflexion (L4) 4 Good Plantarflexion (S1) 4 Good PT-OP-Q Treatments Start: 07/30/21 14:34 Freq: Status: Active Protocol: Document 09/03/21 15:58 DCW (Rec: 09/03/21 16:41 DCW [id number]) Cardio Equipment Recumbent Elliptical (Biodex) Duration (Minutes) 6 Resistance 7 Seat Position 9 Gym Equipment Shuttle Recovery Bilateral Heel Raises Details Heel raise Resistance 62# Shuttle Recovery Platform Stable Reps/Time 20 reps Unilateral Squats Resistance 62# Shuttle Recovery Platform Stable Reps/Time 2x10 Bilateral Squats Resistance 100# Shuttle Recovery Platform Unstable Reps/Time 2x15 Therapeutic Exercises Standing Exercises 1 Standing Exercise Name Hip Extension Side bilateral Resistance Red Equipment Used T-band Other Exercises 1 Other Exercise Name Resisted side-stepping, forward, backward Resistance Red Equipment Used T-band Manual Therapy Treatment Joint Mobilizations Knee Joint L knee Direction P->A Grade III Neuro Re-Education Treatment Balance Activities Foam Stance Details SLS Surface Black pad EC Details Tandem stance Surface firm Stepping Details Toe-taps Equipment 6 step Comments 5# Rocker Board Details fwd/back &side<>side wt shifts hurdles Equipment 6 hurdles Comments fwd x4 side x2 B PT-OP-T Assessment and Plan Start: 07/30/21 14:34 Freq: Status: Active Protocol: Document 09/03/21 15:58 DCW (Rec: 09/03/21 16:41 DCW [id number]) Physical Therapy Assessment Impairments Impairments Balance,Functional Activities, Functional Mobility,Pain,ROM, Strength Goals Three Impairment Pt scores 45/56 on Yee Balance scale Dental Assisting Instructor Goal (LTG) Pt to increase Yee score at least 5 points to 50/56 to improve her ability to balance on her boat when she and her travel up to [place] over the summer. LTG Duration 09/27/21 Two Impairment Bilateral hip MMT between 4-/5 to 2+/5 in all planes Long-Term Goal (LTG) Pt to increase bilateral hip strength to at least 4-/5 in all planes in order to improve sit<->stand ability and floor ->stand transfers LTG Duration 09/27/21 One Impairment Pt does not have an appropriate home exercise program Short Term Goal (STG) Pt to be independent and compliant with an appropriate HEP STG Duration 08/28/21 Assessment Summary Assessment Pt will likely return for her last scheduled visit on Friday , however with her recent potential cancer diagnosis, pt unsure what her schedule will be like, and may end up needing to cancel. Physical Therapy Plan Frequency and Duration Frequency of Treatment 2x/Week Duration of Treatment 2 months Plan of Care Start Date 07/30/21 Plan of Care End Date 09/27/21 Therapeutic Interventions Therapeutic Interventions Balance Training,Gait Training ,Home Exercise Program,Manual Therapy,Neuromuscular Re- education,Patient/Caregiver Education,Self-Care/Home Management,Soft Tissue Mobilization,Therapeutic Exercises Next Visit Focus/Plan Next Note Type Discharge Summary Next Visit Plan Retesting
--- NOTE | 2021-09-07 11:13 | PT.OTN ---
Current Diagnoses Adolescent idiopathic scoliosis, lumbar region (09/07/21) Spinal stenosis, lumbar region without neurogenic claudication (09/07/21) Muscle weakness (generalized) (09/07/21) Other abnormalities of gait and mobility (09/07/21) Other symptoms and signs involving the musculoskeletal system (09/07/21) Physical Therapy Treatment Note PT-OP-A Visit Information Start: 07/30/21 14:34 Freq: Status: Active Protocol: Document 09/07/21 10:30 DCW (Rec: 09/07/21 11:13 DCW [id number]) Out-Patient Physical Therapy Visit Information Visit Information Visit Type Discharge Summary Visit Start Time 10:30 Visit Stop Time 11:15 Total Visit Minutes 45 Visit Number 12 Number of SCHOOL SPEECH THERAPIST Visits 0 Evaluation Information Evaluation Date 07/30/21 PT-OP-B Current Condition Start: 07/30/21 14:34 Freq: Status: Active Protocol: Document 07/30/21 10:30 DCW (Rec: 07/30/21 14:49 DCW [id number]) Current Condition History of Current Condition Onset Date Life-long history Current Complaints Weakness, back pain, instability History of Current Condition Pt is a 76 year old female presenting with a life-long history of back problems, beginning with congenital scoliosis. Pt reports that in the past, she has had physical therapy which in the past helped with her strength and balance, but never helped much with her back. Pt reports that she recently had injections, which has helped with her pain, but she is noticing some increased leg weakness. Since her back is feeling better, she would like to try to address her leg strength and balance before she and her take their boat to [place] for the summer . Pt also notes that at one point in 2019, she fell and hurt her left knee, and it didn't really heal right, and she is now unable to bend her knee more than 90?. Pt struggles to standing up from sitting or on the ground when she is out working in her yard . PT-OP-C Subjective Start: 07/30/21 14:34 Freq: Status: Active Protocol: Document 09/07/21 10:30 DCW (Rec: 09/07/21 11:13 DCW [id number]) OP-PT Subjective Patient Comments Patient Comments Pt feels discharge appropriate , feels comfortable with current level of function. PT-OP-D Balance Start: 07/30/21 14:34 Freq: Status: Active Protocol: Document 09/07/21 10:30 DCW (Rec: 09/07/21 10:46 DCW [id number]) Balance Tests Yee Balance Test Yee Balance Test Score 52/56 Yee Impairment Rating 1 to 19% Impaired (Score 45-55 ) Yee Balance Assessment Evaluation Sitting to Standing Ability Independent w/out Hands Unsupported Stance Safely- 2 minutes Sitting Unsupported, Feet on Floor Safely- 2 minutes Standing to Sitting Ability Safely, Minimal Hand Use Transfer Ability Safely, Minimal Hand Use Unsupported Stance- Eyes Closed Safely, 10 seconds Unsupported Stance- Eyes Open Independent, 1 minute Reaching Forward Standing Confidently, 10 inches Pick- Up Object From Floor Independent/Safe Look Behind Shoulder - Standing Shifts Weight Well Turning 360 Degrees Turns Bilateral, < 4 secs Unsupported Stance, Alternating Feet on (I)- 8 Steps in 20 secs Stair Unsupported Tandem Stance Holds Tandem- 30 seconds Unilateral Leg Stance Lifts Leg/Unable to Hold Total Score Yee Total Score (out of 56 points) 52 Yee Impairment Rating 1 to 19% Impaired (Score 45-55 ) PT-OP-E Functional Tests Start: 07/30/21 14:34 Freq: Status: Active Protocol: Document 09/07/21 10:30 DCW (Rec: 09/07/21 10:46 DCW [id number]) Functional Tests 30 Second Sit to Stand Test Score 11 PT-OP-K Range of Motion Start: 07/30/21 14:34 Freq: Status: Active Protocol: Document 09/07/21 10:30 DCW (Rec: 09/07/21 10:46 DCW [id number]) Knee Goniometric Range of Motion Knee Right Knee ROM WFL Yes Patient Position Sitting Flexion Active (degrees) 120 Flexion Passive (degrees) 130 Extension Active (degrees) 0 Extension Passive (degrees) 0 Left Knee ROM WFL No Patient Position Sitting Flexion Active (degrees) 102 Flexion Passive (degrees) 102 Extension Active (degrees) 0 Extension Passive (degrees) 0 PT-OP-M Strength Start: 07/30/21 14:34 Freq: Status: Active Protocol: Document 09/07/21 10:30 DCW (Rec: 09/07/21 10:46 DCW [id number]) Hip Strength Hip Manual Muscle Testing Right Flexion (L2) 4 Good Extension (S1) 4+ Good+ Abduction 4- Good- Adduction 4+ Good+ External Rotation 4+ Good+ Internal Rotation 4+ Good+ Left Flexion (L2) 4- Good- Extension (S1) 4+ Good+ Abduction 4- Good- Adduction 4+ Good+ External Rotation 4- Good- Internal Rotation 4+ Good+ Knee Strength Knee Manual Muscle Testing Right Flexion (S2) 4+ Good+ Extension (L3) 4+ Good+ Left Flexion (S2) 4- Good- Extension (L3) 4 Good Ankle/Foot Strength Ankle and Foot Manual Muscle Testing Right Dorsiflexion (L4) 4+ Good+ Plantarflexion (S1) 4+ Good+ Left Dorsiflexion (L4) 4+ Good+ Plantarflexion (S1) 4+ Good+ PT-OP-Q Treatments Start: 07/30/21 14:34 Freq: Status: Active Protocol: Document 09/07/21 10:30 DCW (Rec: 09/07/21 11:13 DCW [id number]) Therapeutic Activity Therapeutic Activity 1 Name Floor transfers Comments positioning, technique Manual Therapy Treatment Joint Mobilizations Knee Joint L knee Direction P->A Grade III Other Other Manual Treatments Testing ROM, MMT Neuro Re-Education Treatment Other Activities testing Details Yee PT-OP-T Assessment and Plan Start: 07/30/21 14:34 Freq: Status: Active Protocol: Document 09/07/21 10:30 DCW (Rec: 09/07/21 11:13 DCW [id number]) Physical Therapy Assessment Impairments Impairments Balance,Functional Activities, Functional Mobility,Pain,ROM, Strength Goals Three Impairment Pt scores 45/56 on Yee Balance scale Medical Billing Clerk Goal (LTG) Pt to increase Yee score at least 5 points to 50/56 to improve her ability to balance on her boat when she and her travel up to [place] over the summer. LTG Duration Met Two Impairment Bilateral hip MMT between 4-/5 to 2+/5 in all planes Mcfp Goal (LTG) Pt to increase bilateral hip strength to at least 4-/5 in all planes in order to improve sit<->stand ability and floor ->stand transfers LTG Duration Met One Impairment Pt does not have an appropriate home exercise program Short Term Goal (STG) Pt to be independent and compliant with an appropriate HEP STG Duration Met Assessment Summary Assessment Pt doing well, has met all goals. Yee increased from 45/ 56->52/56. Improved LE strength, improved knee ROM. Pt doing well with floor transfers. Pt appropriate for discharge at this time. Physical Therapy Plan Frequency and Duration Frequency of Treatment 2x/Week Duration of Treatment 2 months Plan of Care Start Date 07/30/21 Plan of Care End Date 09/27/21 Therapeutic Interventions Therapeutic Interventions Balance Training,Gait Training ,Home Exercise Program,Manual Therapy,Neuromuscular Re- education,Patient/Caregiver Education,Self-Care/Home Management,Soft Tissue Mobilization,Therapeutic Exercises Discharge Physical Therapy Discharge Reasons Goals Met Next Visit Focus/Plan Next Note Type Discharge Summary
== END 2021-09-14 13:43 ==
LOC: PHYS 10:30
PROVIDERS: Family Provider Student in an Organized Health Care Education/Training Program; PCP Student in an Organized Health Care Education/Training Program; Referring Provider Physical Medicine & Rehabilitation; Visit Provider Physical Medicine & Rehabilitation
DX: R29.898 Other symptoms and signs involving the musculoskeletal system (principal); M48.061 Spinal stenosis, lumbar region without neurogenic claudication; M41.126 Adolescent idiopathic scoliosis, lumbar region; M62.81 Muscle weakness (generalized); R26.89 Other abnormalities of gait and mobility
CPT/HCPCS: 97110; 97112; 97140; 97161

== ENCOUNTER → 2021-09-28 10:06 | Outpatient (CLI) | payer MEDICARE, OTHER, SELFPAY ==
[2020-10-25 11:27] VITALS: BMI 24.0
[2021-09-28 12:05] LABS: BUN Creatinine Ratio 25.9 (6-22); Blood Urea Nitrogen 21 mg/dL (7-17); Calcium 9.1 mg/dL (8.4-10.2); Carbon Dioxide 33 mmol/L (22-32); Chloride 100 mmol/L (98-107); Estimated Glomerular Filt Rate > 60.0 mL/min (>60); Glucose 84 mg/dL (80-110); HEMOLYSIS < 15 (0-50); Potassium 4.7 mmol/L (3.4-5.1); Sodium 138 mmol/L (137-145)
== END ==
PROVIDERS: Family Provider Student in an Organized Health Care Education/Training Program; PCP Student in an Organized Health Care Education/Training Program; Referring Provider Otolaryngology Plastic Surgery within the Head & Neck; Visit Provider Otolaryngology Plastic Surgery within the Head & Neck
DX: D48.0 Neoplasm of uncertain behavior of bone and articular cartilage (principal)
CPT/HCPCS: 36415; 80048

== ENCOUNTER → 2021-10-02 13:29 | Outpatient (CLI) | payer MEDICARE, OTHER, SELFPAY ==
[2020-10-25 11:27] VITALS: BMI 24.0
--- NOTE | 2021-10-02 | DI.CT.S_ITS ---
PROCEDURE: CT SOFT TISSUE NECK W CON INDICATIONS: Neoplasm of mandible TECHNIQUE: After the administration of intravenous contrast, 3.0 mm axial sections acquired from the sella to the aortic arch. Additional oblique axial 3.0 mm sections acquired through the pharynx. 3 mm thick coronal and sagittal reformats were generated. For radiation dose reduction, the following was used: automated exposure control. COMPARISON: None. FINDINGS: Image quality: Excellent. Lymph nodes: No enlarged lymph nodes seen throughout the neck. Vessels: Visualized vasculature appears patent. Medialization is noted of the left proximal common carotid artery, which passes posterior to the trachea and esophagus, as on series 2, image 63. Neck spaces: The oropharynx, nasopharynx, and pharynx demonstrate no mucosal lesions. The vocal cords, false vocal cords, pyriform sinuses, epiglottis, vallecula, and tongue base all appear normal. Extramucosal spaces appear unremarkable. Glands: The parotid and submandibular glands appear normal. Thyroid gland demonstrates no significant abnormality. Miscellaneous: Visualized brain and orbits appear normal. Lung apices appear clear. Superficial soft tissues appear normal. Bones: In this patient with this given history, scrutiny is given to the mandible. Poorly defined lucency is seen involving the central anterior mandible, with loss of the anterior cortex. This can be seen on series 3, image 2, for example. There is lucency seen involving several tooth roots of the anterior mandible. Mildly asymmetric soft tissue can be seen anterior and along the right aspect of the mandible, which is nonspecific, as on series 2 image 37. No suspicious bony lesions. Moderate mucosal thickening is seen within the left maxillary sinus. The paranasal sinuses are otherwise unremarkable. No abnormal fluid is seen within the mastoid air cells. IMPRESSION: Abnormal lucency seen involving the anterior mandible, with loss of the cortex anteriorly. Associated lucency can be seen involving several anterior mandible tooth roots. Asymmetric prominent soft tissue can be seen along the anterior aspect and along the right aspect the mandible. These imaging findings are nonspecific, although these are compatible with the given clinical history of neoplasm. Please correlate with dental examination. Please consider biopsy. Dictated by: Joshua Mustafa M.D. on 10/02/2021 at 13:21 Transcribed by: SARAH on 10/02/2021 at 13:24 Approved by: Joshua Mustafa M.D. on 10/03/2021 at 11:55
== END ==
PROVIDERS: Family Provider Student in an Organized Health Care Education/Training Program; PCP Student in an Organized Health Care Education/Training Program; Referring Provider Otolaryngology Plastic Surgery within the Head & Neck; Visit Provider Otolaryngology Plastic Surgery within the Head & Neck
DX: D48.0 Neoplasm of uncertain behavior of bone and articular cartilage (principal)
CPT/HCPCS: 70491

== ENCOUNTER → 2022-02-20 12:52 | Outpatient (CLI) | payer MEDICARE, OTHER, SELFPAY ==
[2021-10-26 14:07] VITALS: BMI 24.0
[2022-02-20 13:38] LABS: COVID19 -Nasal RAPID Negative (Negative)
== END ==
PROVIDERS: Family Provider Student in an Organized Health Care Education/Training Program; PCP Student in an Organized Health Care Education/Training Program; Visit Provider Physical Medicine & Rehabilitation
DX: Z20.822 Contact with and (suspected) exposure to COVID-19 (principal)
CPT/HCPCS: 87635; C9803

== ENCOUNTER 2022-02-21 07:27 | Outpatient (CLI) | payer MEDICARE, OTHER, SELFPAY ==
[2021-10-26 14:07] VITALS: BMI 24.0
[2022-02-21] VITALS (9 sets, daily range): BP systolic 106–150; BP diastolic 59–88; PULSE 70–77; RESP 12–20; TEMP 36.1; O2SAT 98–100
--- NOTE | 2022-02-21 07:30 | DI.RAD.S_ITS ---
PROCEDURE: PAIN L INTERLAMINAR/CAUDAL INJ INDICATIONS: LUMBAR STENOSIS COMPARISON: [facility], , PAIN L INTERLAMINAR/CAUDAL INJ, 04/10/2021, 10:48. FINDINGS: Fluoroscopic spot filming was performed to verify placement of spinal needles at the lower sacrum level(s), as labeled on the films. Appropriate location(s) of the needle tip(s) was confirmed by injection of iodinated contrast. IMPRESSION: Fluoroscopic support for caudal epidural steroid injection. Please see procedural note for further details. Dictated by: Mahin Wellington M.D. on 02/21/2022 at 10:15 Approved by: Mahin Wellington M.D. on 02/21/2022 at 10:17
[2022-02-21] MEDS: BUPIVACAINE 0.25% (PF) VIAL 2 ML INJ (08:31)
[2022-02-21] MEDS: BETAMETHASONE 30 MG/5 ML MDV 12 MG INJ (08:31)
[2022-02-21] MEDS: DEXAMETHASONE 10 MG/ML VIAL 20 MG INJ (08:31)
[2022-02-21] MEDS: IOPAMIDOL 15 ML VIAL 3 ML INJ (08:31)
[2022-02-21] MEDS: MIDAZOLAM 2 MG/2 ML VIAL 3 MG IV (08:37)
--- NOTE | 2022-02-21 08:44 | PM.PROC.IR.1 ---
Date/Time/Diagnoses Date of procedure: 02/21/22 Time of procedure: 08:44 Pre-procedure diagnosis: 1. MULTILEVEL SPINAL STENOSIS 2. POST FUSION SYNDROME Post-procedure diagnosis: same Procedure Notes Procedure: 1. FLUOROSCOPICALLY GUIDED CONTRAST CONTROLLED CAUDAL EPIDURAL STEROID INJECTION, Indications: Porsche Valente is referred by Dr. Tran for treatment of Multilevel Stenosis Physician: Merrill Wang Total Fluoroscopy time (seconds): 7 Total sedation minutes: 16 Complications: none Procedure in detail & Post-procedure care: FINDINGS Multilevel Stenosis S/p Lami/Fusion Syndrome DESCRIPTION OF PROCEDURE Fluoroscopically guided, contrast controlled caudal epidural steroid injection with Conscious Sedation Following review of allergy and review of potential side effects and complications, including but not necessarily limited to infection, allergic reaction, local tissue breakdown, temporary or permanent nerve injury, stroke, paralysis, and possible , the patient indicated that they understood and agreed to proceed. An informed consent document was signed by the patient, witnessed by a nurse, and placed in the patient's chart. Additionally, other treatment options including medications, modalities, and physical therapy were reviewed with the patient. After review of previous anaesthesic history and IV conscious sedation the patient was deemed safe to proceed with today?s procedure with IV conscious sedation as ASA class II designation. Safety time-out was performed to confirm patient ID, procedure to be performed and site of procedure. IV sedation was accomplished with a combination of 4mg of Versed administered by the RN after DO order, titrated to patient comfort during the course of the procedure while the patient remained responsive to all verbal commands In the prone position, following sterile prep and drape of the lumbar region, the sacral hiatus was identified fluoroscopically. The skin was anesthetized via a 25-gauge, 1.5-inch needle with approximately 2cc of 1% lidocaine solution. At this point, a 25-gauge, 3inch needle was atraumatically introduced and advanced under fluoroscopic guidance to the corresponding sacral hiatus and entering the sacral canal. Following negative aspiration, injection of approximately 0.3cc of Isovue 300 confirmed interarticular placement without vascular uptake. Radiological data, including multiple fluoroscopic views of the lumbosacral spine, reveal a spinal needle in the sacral canal through the sacral hiatus. Subsequent views show flow of contrast material superiorly and inferiorly in the sacral canal without vascular or intrathecal uptake. At this point, a total of 7cc including 4cc or 12mg of betamethasone, 20mg dexamethasone and 3cc of 1% lidocaine solution was injected without complication. The patient tolerated the procedure well without signs or symptoms of complications prior to transfer to the recovery area continued monitoring without incident. The patient was then transferred to the recovery area where they were observed for an appropriate period of time after the injection. The patient reported a VAS score of 10 prior to the procedure and a post-procedure VAS of 2. POST OP INSTRUCTIONS The patient was provided a Pain Log to continue to record their response to the target-specific procedure prior to their follow-up visit with the referring physician. Additionally, specific post-injection care instructions and a contact number to our office were provided if concerns arise regarding possible complications associated with the procedure are suspected.
== END 2022-02-21 09:15 | disposition home or self-care (01) ==
LOC: RAD 07:30
PROVIDERS: Family Provider Student in an Organized Health Care Education/Training Program; PCP Student in an Organized Health Care Education/Training Program; Referring Provider Physical Medicine & Rehabilitation; Visit Provider Physical Medicine & Rehabilitation
DX: M48.061 Spinal stenosis, lumbar region without neurogenic claudication (principal); M96.1 Postlaminectomy syndrome, not elsewhere classified
CPT/HCPCS: 62323; 99152; J0702; J1100; J2250; J3490

== ENCOUNTER 2022-04-23 13:42 | Outpatient (CLI) | payer MEDICARE, OTHER, SELFPAY ==
[2021-10-26 14:07] VITALS: BMI 24.0
[2022-04-23] VITALS (7 sets, daily range): BP systolic 141–157; BP diastolic 67–82; PULSE 69–73; RESP 12–20; TEMP 36.5; O2SAT 96–100
--- NOTE | 2022-04-23 13:43 | DI.RAD.S_ITS ---
PROCEDURE: PAIN L/S TRANSFORAMINAL INJECT INDICATIONS: Left L5-S1 transforaminal ALEJANDRINA COMPARISON: [facility], XA, PAIN L INTERLAMINAR/CAUDAL INJ, 02/21/2022, 8:31. FINDINGS: Fluoroscopic spot filming was performed to verify placement of a spinal needle at the L5-S1 level, as labeled on the films. Appropriate location of the needle tip was confirmed by injection of iodinated contrast. IMPRESSION: No significant intraprocedural abnormality. Dictated by: Joshua Mustafa M.D. on 04/23/2022 at 15:56 Approved by: Joshua Mustafa M.D. on 04/23/2022 at 15:56
[2022-04-23] MEDS: MIDAZOLAM 2 MG/2 ML VIAL IV (15:15)
[2022-04-23] MEDS: BUPIVACAINE 0.25% (PF) VIAL 2 ML INJ (15:18)
[2022-04-23] MEDS: IOPAMIDOL 15 ML VIAL 3 ML INJ (15:19)
[2022-04-23] MEDS: BETAMETHASONE 30 MG/5 ML MDV 6 MG INJ (15:19)
[2022-04-23] MEDS: DEXAMETHASONE 10 MG/ML VIAL 20 MG INJ (15:20)
--- NOTE | 2022-04-23 15:35 | P.PCN_ITS ---
Date/Time/Diagnoses Date of procedure: 04/23/22 Time of procedure: 15:35 Pre-procedure diagnosis: 1. FORAMINAL STENOSIS WITH LE SYMPTOMS Post-procedure diagnosis: same Procedure Notes Procedure: 1. FLUOROSCOPICALLY GUIDED CONTRAST CONTROLLED TRANSFORAMINAL EPIDURAL STEROID INJECTION - Left L5/S1 Indications: Porsche Valente is referred by Dr. Tran for treatment of Foraminal Stenosis with Left LE Symptoms Physician: Merrill Wang Total Fluoroscopy time (seconds): 16 Total sedation minutes: 12 Complications: none Procedure in detail & Post-procedure care: FINDINGS Foraminal Nerve Root Compression secondary to disc disease and facet hypertrophy DESCRIPTION OF PROCEDURE Following review of allergy and review of potential side effects and complications, including, but not necessarily limited to, infection, allergic reaction, local tissue breakdown, stroke, temporary or permanent nerve injury, paralysis, and possible , the patient indicated that the patient understood and agreed to proceed. An informed consent document was signed by the patient, witnessed by a nurse, and placed in the patient's chart. Additionally, other treatment options including medications, modalities, and physical therapy were reviewed with the patient. After review of previous anaesthesic history and IV conscious sedation the patient was deemed safe to proceed with today?s procedure with IV conscious sedation as ASA class II designation. Safety time-out was performed to confirm patient ID, procedure to be performed and site of procedure. IV sedation was accomplished with a combination of 2mg of Versed was administered by the RN after DO order, titrated to patient comfort during the course of the procedure while the patient remained responsive to all verbal commands In the prone position following sterile prep and drape of the lumbar region, the Left L5/S1 posterior neuroforamen was identified fluoroscopically. The skin was anesthetized via a 25-gauge 1.5-inch needle with 1% lidocaine solution. At this point, a 25-gauge 3.5-inch spinal needle was atraumatically introduced and advanced under fluoroscopic guidance through the posterior Left L5/S1 neuroforamen to approximately the anterior aspect of the canal. Depth was confirmed on lateral view. Following negative aspiration, injection of approximately 1.5 cc of Isovue 200 under live fluoroscopy in the AP view confi rmed excellent flow along the nerve root, into the epidural space without vascular or intrathecal uptake observed Radiological data, including multiple fluoroscopic views of the lumbosacral spine, reveal a spinal needle at the Left L5/S1 posterior neuroforamen. Subsequent views show flow of contrast material flowing superiorly and inferiorly along the nerve root confirming epidural flow. Subsequently, a test dose of 1.5 cc of 1% lidocaine solution was administered and patient was observed for two minutes for signs or symptoms of complications, including abdominal pain, shortness of breath, bilateral upper or lower extremity weakness, nausea and vomiting, prior to steroid injection. At this point, a total of 3cc or 20mg of dexamethasone and 6mg of betamethasone was injected without incident. The procedure tolerated the procedure well without signs or symptoms of complications prior to transfer to the recovery area continued monitoring without incident. The patient was then transferred to the recovery area where they were observed for an appropriate time after the injection. The patient reported a VAS score of 7 prior to the procedure and a post-procedure VAS of 0. POST OP INSTRUCTIONS The patient was provided a Pain Log to continue to record their response to the target-specific procedure prior to follow-up visit with their referring ph ysician. Additionally, specific post-injection care instructions and a contact number to our office were provided if concerns arise regarding possible complications associated with the procedure are suspected.
== END 2022-04-23 15:48 | disposition home or self-care (01) ==
LOC: RAD 13:42
PROVIDERS: Family Provider Student in an Organized Health Care Education/Training Program; PCP Student in an Organized Health Care Education/Training Program; Referring Provider Physical Medicine & Rehabilitation; Visit Provider Physical Medicine & Rehabilitation
DX: M48.07 Spinal stenosis, lumbosacral region (principal); M51.17 Intervertebral disc disorders with radiculopathy, lumbosacral region
CPT/HCPCS: 64483; 99152; J0702; J1100; J2250; J3490

== ENCOUNTER → 2022-05-13 07:40 | Outpatient (CLI) | payer MEDICARE, OTHER, SELFPAY ==
[2021-10-26 14:07] VITALS: BMI 24.0
--- NOTE | 2022-05-27 14:19 | P.HOLT.S_ITS ---
Teacher Associate Report Referral & Results Date Patient Seen: 05/13/22 Requesting provider: Darin Tran Indication: Hypotension Duration of monitoring (days): 5 Diary information: There were 2 patient triggered events and 1 patient diary entry Patient triggered events were variably associated with sinus rhythm and PVCs including ventricular trigeminy (which was 48.8 seconds in duration) Data: Minimum heart rate was 54 beats per minute at 23:45 on 05/16/2022 Maximum sinus heart rate was 111 beats per minute at 14:24 on 05/17/2022 Maximum overall heart rate was 150 beats per minute at 19:54 on 05/15/2022 during a run of SVT Less than 1% of identified beats were supraventricular ectopic in origin which would classify them as rare Approximately 8.9% of identified beats were ventricular ectopic in origin which would classify them as frequent, this included a 17.1 second run of ventricular bigeminy and a 48.8 second run of ventricular trigeminy There were no episodes of atrial fibrillation or pauses of 3 seconds or longer identified on this study 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
== END ==
PROVIDERS: Family Provider Student in an Organized Health Care Education/Training Program; PCP Student in an Organized Health Care Education/Training Program; Referring Provider Student in an Organized Health Care Education/Training Program; Visit Provider Student in an Organized Health Care Education/Training Program
DX: I95.9 Hypotension, unspecified (principal)
CPT/HCPCS: 93242; 93244

== ENCOUNTER → 2022-06-10 10:05 | Outpatient (CLI) | payer MEDICARE, OTHER, SELFPAY ==
[2021-10-26 14:07] VITALS: BMI 24.0
--- NOTE | 2022-06-10 10:06 | DI.RAD.S_ITS ---
PROCEDURE: XR DEXA AXIAL SKELETON INDICATIONS: screening for osteoporosis COMPARISON: [facility], CR, XR DEXA AXIAL SKELETON, 08/31/2019, 9:35. FINDINGS: This blank DEXA report has been sent in error by the PACS system. The correct and complete report will be forthcoming in 1-2 days. Thank you for your patience and understanding. Dictated by: Kaur Lux MD, PhD on 06/11/2022 at 13:18 Approved by: Kaur Lux MD, PhD on 06/11/2022 at 13:18
== END ==
PROVIDERS: Family Provider Student in an Organized Health Care Education/Training Program; PCP Student in an Organized Health Care Education/Training Program; Referring Provider Student in an Organized Health Care Education/Training Program; Visit Provider Student in an Organized Health Care Education/Training Program
DX: M85.852 Other specified disorders of bone density and structure, left thigh (principal); Z13.820 Encounter for screening for osteoporosis; Z78.0 Asymptomatic menopausal state; Z92.23 Personal history of estrogen therapy
CPT/HCPCS: 77080

== ENCOUNTER → 2022-07-02 12:48 | Outpatient (CLI) | payer MEDICARE, OTHER, SELFPAY ==
[2021-10-26 14:07] VITALS: BMI 24.0
[2022-07-02 13:35] LABS: Add Manual Diff / Slide Review NO; Basophils Absolute Auto 100 /uL (0-100); Basophils Percent Auto 0.8 % (0-2); Eosinophils Absolute Auto 100 /uL (0-450); Eosinophils Percent Auto 1.5 % (2-4); Hematocrit 35.2 % (36-46); Hemoglobin 11.3 g/dL (12.0-16.0); Lymphocytes Absolute Auto 1300 /uL (1100-4500); Lymphocytes Percent Auto 16.2 % (25-40); Mean Corpuscular HGB Conc 32.2 % (30-36); Mean Corpuscular Volume 86.9 fL (80-100); Monocytes Absolute Auto 800 /uL (0-900); Monocytes Percent Auto 9.7 % (3-14); Neutrophils Absolute Auto 5600 /uL (1500-7000); Neutrophils Percent Auto 71.8 % (50-75); Platelet Count 193 X10^3/uL (150-400); Red Blood Cell Count 4.05 X10^6/uL (4.0-5.2); Red Cell Distribution Width 15.1 % (11.6-14.8); White Blood Cell Count 7.8 X10^3/uL (4.5-11.0)
[2022-07-02 13:45] LABS: Estimated Glomerular Filt Rate > 60 mL/min (>60)
== END ==
PROVIDERS: Radiology Diagnostic Radiology; Family Provider Student in an Organized Health Care Education/Training Program; PCP Student in an Organized Health Care Education/Training Program; Referring Provider Internal Medicine Gastroenterology; Visit Provider Internal Medicine Gastroenterology
DX: K21.9 Gastro-esophageal reflux disease without esophagitis (principal); K92.1 Melena; M62.830 Muscle spasm of back
CPT/HCPCS: 36415; 82565; 85025

== ENCOUNTER → 2022-07-09 11:47 | Outpatient (CLI) | payer MEDICARE, OTHER, SELFPAY ==
[2021-10-26 14:07] VITALS: BMI 24.0
--- NOTE | 2022-07-09 | DI.CT.S_ITS ---
PROCEDURE: CT SOFT TISSUE NECK W CON INDICATIONS: malignant neoplasm of mouth TECHNIQUE: After the administration of intravenous contrast, 3.0 mm axial sections acquired from the skull base to the upper chest. Additional 1.5 mm axial sections acquired through the true vocal cords. 1 mm thick coronal reformats were generated. For radiation dose reduction, the following was used: automated exposure control. COMPARISON: None. FINDINGS: Image quality: Excellent. Neck spaces: Interval postoperative change can be seen, with resection of a portion of the right anterior mandible superiorly. The inferior portion of the mandible appears intact. All of the right mandibular teeth have been removed. Associated soft tissue irregularity can be seen. No soft tissue masses are seen. No mucosal masses are identified. Lymph nodes: No enlarged lymph nodes seen throughout the neck. Vessels: Visualized vasculature appears patent. Note is made that the left common carotid artery is tortuous and medialized, as seen on series 6, image 59 and on series 5, image 42. Glands: The parotid and submandibular glands appear normal. Thyroid gland demonstrates no significant abnormality. Miscellaneous: Visualized brain and orbits appear unremarkable. Lung apices appear clear. Superficial soft tissues appear normal. Bones: There is at least moderate mucosal thickening seen within the left maxillary sinus, with increased density. The paranasal sinuses otherwise are relatively clear. No abnormal fluid is seen within the mastoid air cells. Moderate cervical spine degenerative change can be seen inferiorly. IMPRESSION: Resection change of the right anterior superior mandible, together with all of the right mandibular teeth. No abhi soft tissue masses or enlarged lymph nodes are identified. Focal left maxillary sinus disease is seen, with associated increased density seen within it. Please consider blood products within the sinus versus dense secretions versus fungal infection. Additional findings: Lower cervical spine degenerative change Tortuous and medialized left common carotid artery Dictated by: Joshua Mustafa M.D. on 07/09/2022 at 13:33 Approved by: Joshua Mustafa M.D. on 07/09/2022 at 13:37
== END ==
PROVIDERS: Family Provider Student in an Organized Health Care Education/Training Program; PCP Student in an Organized Health Care Education/Training Program; Referring Provider Otolaryngology Plastic Surgery within the Head & Neck; Visit Provider Otolaryngology Plastic Surgery within the Head & Neck
DX: D48.0 Neoplasm of uncertain behavior of bone and articular cartilage (principal); C06.9 Malignant neoplasm of mouth, unspecified; J32.0 Chronic maxillary sinusitis; M47.812 Spondylosis without myelopathy or radiculopathy, cervical region; I77.1 Stricture of artery
CPT/HCPCS: 70491; Q9967

== ENCOUNTER 2022-07-15 14:30 | Outpatient (RCR) | payer MEDICARE, OTHER, SELFPAY ==
[2021-10-26 14:07] VITALS: BMI 24.0
--- NOTE | 2022-07-09 15:28 | ST.OPIE ---
Visit Care Team Role Provider Type Darin Tran MD Family Provider Physician Primary Care Provider Specialty: Internal Medicine Address: [address] [place] [address], [address], [address] Email: [email or web address] Anthony Frederick MD, DMD Attending Provider Non-Staff Referring Provider Specialty: Otolaryngology (ENT) Address: [address] [facility], [address], [place], [address] Fax: Email: Speech-Language Pathology Initial Evaluation MIL[employer]CH[employer]OLOGY SPECIALIST Clinical Swallow Evaluation Start: 07/09/22 15:08 Freq: Status: Active Protocol: Document 07/09/22 15:08 SHIRA (Rec: 07/09/22 15:28 ZS [id number]) Clinical Swallow Evaluation Session Time Visit Start Time 14:30 Visit Stop Time 15:10 Total Visit Minutes 40 Visit Information Visit Number Initial Evaluation Plan of Care Dates 07/09/2022 - 09/27/2022 Insurance Information Medicare Referral Referring Provider Dr. Frederick Reason for Referral Swallowing difficulty following surgery Setting Assessment Location Outpatient Care Visit Type Note Type Initial evaluation Next Note Type Next Note Type Treatment Note Patient Information Identification Type Name History Sidra is a 77 year old female who had oral surgery for gum/ bone/teeth removal on 02/08/22 and has difficulty swallowing as a result of surgery. Surgery also involved cutting the nerve to her lip, resulting in numbness and poor function of lower lip. She experiences anterior loss of food, difficulty swallowing pills, pocketing of food and oral residue secondary to tongue weakness, and aspiration of thin liquids when she is not concentrating on swallowing. Pt added she has difficulty with speech sound production due to missing dentition and her stated she speaks very softly, though suspects he has a hearing loss. Subjective Observations Pt arrived on time and agreed to participate in all session activities. Reported by Patient Other Symptoms Difficulty swallowing pills, History of aspiration or pneumonia Current Diet Regular,Thin liquids Baseline Feeding Method Independent in self-feeding Objective Assessment Mental Status Alert,Responsive,Cooperative Oral Integrity WFL Dentition Missing teeth Lip Function Mild impairment Observation of Lips at Rest Right sided weakness/Drooping Pucker Reduced range of motion,Right sided weakness/drooping Lip Retraction Reduced range of motion Alternating Pucker/Lip Retraction Reduced range of motion Tongue Function Moderate impairment Observations of Tongue at Rest Within normal limits Tongue Protrusion Deviates to the right Tongue Retraction Within normal limits Tongue Lateralization Reduced range of motion Jaw Function Within normal limits Observations of Jaw at Rest Within normal limits Jaw Opening Within normal limits Jaw Closing Within normal limits Hard/Soft Palate Function Within normal limits Observations of Hard/Soft Palate Within normal limits Nasality Within normal limits Phonation Within normal limits Respiratory Sufficiency Within normal limits Comment Structures were symmetrical at rest with mild right weakness in tongue and lips in motion. Tongue deviated to right when protruded and pt exhibited moderately reduced ROM of tongue to right. Missing lower dentition from first lower right incisor to left back molar. Pt stated she has right lip weakness, though when focused on it, can make lips symmetrical. She stated her speech deteriorates through the day as fatigue increases and she is less focused on production. She added her eating becomes more sloppy in the evenings for the same reason. Speech was 100% intelligible with slight distortion of /s/ and other dental sounds, secondary to missing dentition. Food and Liquid Trials Position During Assessment Upright (90 degrees),In chair Liquids Trialed Thin Solids Trialed Puree,Dysphagia Mechanical Administration Type Tea spoon,Cup single sip,Straw ,Self-feeding Oral Impairment Within normal limits Oral Phase Comments No anterior loss of bolus noted during today's session, though pt was observed to wipe her bottom lip to clear spillage x3 during evaluation. No oral residue observed or reported by pt during PO trials. Pharyngeal Impairment Within normal limits Pharyngeal Phase Comments One instance of wet/gurgly vocal quality observed following use of straw to drink thin liquids. Otherwise no overt signs or symptoms of aspiration. Unable to determine if silent aspiration is occurring with clinical swallow assessment. Modified barium swallow study is not recommended at this time as pt 's main concern is anterior loss of bolus while eating. Fatigue/Endurance Endurance WNL Comment No concerns with fatigue observed or reported at this time. Findings Comment The pt presents with mild- moderate oral phase dysphagia secondary to missing dentition and labial weakness/numbness following surgery. Provided tongue and lip exercises to increase oral control of bolus while eating and discussed strategies to decrease sloppy eating. Pt demonstrated understanding of exercises and POC. Recommend speech therapy to increase labial and lingual strength for the purposes of increasing swallow safety and comfort with oral intake. Impact on Safety and Functioning Risk for aspiration Recommendations Instrumental Assessment No Swallowing Treatment Yes Frequency 1x per week Recommended Solids Regular Recommended Liquids Thin Safety Precautions/Swallowing Remain upright (90 degrees) Recommendations during all oral intake,Upright position at least 30 minutes after meals,Small bites and sips when eating,Slow rate; swallow between bites,Check for pocketing Medication Recommendations As Tolerated Education Patient/Caregiver Education Described results of evaluation,Patient expressed understanding of evaluation, Patient expressed agreement with goals & treatment plans, Patient expressed understanding of safety precautions,Patient expressed understanding of feeding recommendations,Patient requires further education/ training Goals Short-term Goals 1. Pt will perform safe swallow strategies with oral intake independently to reduce risk of aspiration. 2. Pt will perform exercises to increase strength, coordination, and ROM of swallow musculature independently to reduce risk of aspiration and increase comfort with oral intake. Long-term Goals Pt will safely tolerate least restrictive diet to meet her nutrition and hydration needs.
--- NOTE | 2022-07-09 15:29 | ST.OPPOC ---
Physical, Occupational & Speech Therapy At [facility] Visit Care Team Role Provider Type Drain Tran MD Family Provider Physician Primary Care Provider Address: [address] [place] [address], [address], [place], [address] Anthony Frederick MD, DMD Attending Provider Non-Staff Referring Provider Address: [address] [facility], [address], [place], [address] Fax: Speech Pathology Plan of Care Plan of Care Dates 07/09/2022 - 09/27/[address] Frederick Patient History Sidra is a 77 year old female who had oral surgery for gum/bone/teeth removal on 02/08/22 and has difficulty swallowing as a result of surgery. Surgery also involved cutting the nerve to her lip, resulting in numbness and poor function of lower lip. She experiences anterior loss of food, difficulty swallowing pills, pocketing of food and oral residue secondary to tongue weakness, and aspiration of thin liquids when she is not concentrating on swallowing. Pt added she has difficulty with speech sound production due to missing dentition and her stated she speaks very softly, though suspects he has a hearing loss. Short-term Goals 1. Pt will perform safe swallow strategies with oral intake independently to reduce risk of aspiration. 2. Pt will perform exercises to increase strength, coordination, and ROM of swallow musculature independently to reduce risk of aspiration and increase comfort with oral intake . Long-term Goals Pt will safely tolerate least restrictive diet to meet her nutrition and hydration needs. Comment: Electronically Signed by: AMY Weiss 07/09/22 1529 If you are in agreement with this Plan of Care, please return a signed and dated copy. I have reviewed this Plan of Care and certify that the skilled therapy services above are required to meet the patient?s needs. Physician Signature Date Printed Name and Credentials Clinical Instructor Signature Printed Name and Credentials
--- NOTE | 2022-07-15 15:02 | ST.OPDS ---
Visit Care Team Role Provider Type Darin Tran MD Family Provider Physician Primary Care Provider Address: [address] [place] [address], [address], [place], [address] Anthony Frederick MD, DMD Attending Provider Non-Staff Referring Provider Address: [facility], [address], [place], [address] Fax: ULTRASOUND SPEC Treatment Note ULTRASOUND SPEC Treatment Note Start: 07/15/22 14:50 Freq: Status: Active Protocol: Document 07/15/22 14:52 ZS (Rec: 07/15/22 15:02 ZS [id number]) Speech Pathology Treatment Note Session Time Visit Start Time 14:30 Visit Stop Time 14:37 Total Visit Minutes 7 Visit Information Visit Number 1 Plan of Care Dates 07/09/2022 - 09/27/2022 Insurance Information Medicare Setting Treatment Setting Outpatient Care Visit Type Note Type Discharge Summary General Information Patient History Sidra is a 77 year old female who had oral surgery for gum/ bone/teeth removal on 02/08/22 and has difficulty swallowing as a result of surgery. Surgery also involved cutting the nerve to her lip, resulting in numbness and poor function of lower lip. She experiences anterior loss of food, difficulty swallowing pills, pocketing of food and oral residue secondary to tongue weakness, and aspiration of thin liquids when she is not concentrating on swallowing. Pt added she has difficulty with speech sound production due to missing dentition and her stated she speaks very softly, though suspects he has a hearing loss. The pt presents with mild- moderate oral phase dysphagia secondary to missing dentition and labial weakness/numbness following surgery. Subjective Identification Type Name Identification Reconciled With Medical Record Observations/Patient Presentation Sidra arrived on time and ambulated independently to therapy room. She reported exercises provided in initial evaluation have been extremely effective and is ready for discharge from speech therapy. Chief Complaint(s) Swallowing Objective Short Term Goals 1. Pt will perform safe swallow strategies with oral intake independently to reduce risk of aspiration. 2. Pt will perform exercises to increase strength, coordination, and ROM of swallow musculature independently to reduce risk of aspiration and increase comfort with oral intake. Jail Goals Pt will safely tolerate least restrictive diet to meet her nutrition and hydration needs. Treatment Activities Reviewed HEP provided in initial evaluation. Discussed discharge and continued HEP for continued improvement and maintenance of skills gained. Assessment Patient Response to Treatment Excellent Rehab Potential Excellent Impairments Identified Swallow Progress Towards Goals Excellent Progress,Goals Met, Appropriate for Discharge Assessment of Overall Progress Improving Assessment of Improvement Sidra demonstrated independent use of exercises and stated anterior loss of bolus has decreased significantly while eating. Additionally, Sidra reported tongue sweep has eliminated oral residue following swallow. Tongue sweep observed to have increased ROM on the left side . Difficulty observed with maintaining tongue protrusion during Marcie Maneuver, likely due to missing dentition. Despite difficulty due to missing dentition, improvement in tongue protrusion noted and pt demonstrated understanding and expressed understanding of increasing difficulty of exercise. Pt is independent in HEP, has no questions regarding exercises, and has met all therapy goals . Discharging from speech therapy at this time as pt has met goals and is independent in HEP. Pt to continue HEP for continued improvement and maintenance of gains made. Reviewed with Patient Goals,Progress Being Made,Home Exercise Program Patient/Caregiver Understanding Excellent Plan Amount of Therapy Recommended No Further Therapy Frequency of Treatment No Further Therapy Therapeutic Contents Home Exercise Program, Swallowing/Feeding Provided Patient/Caregiver Instruction Home Exercise Program,Plan of Care,Questions/Concerns Therapy Recommendations Discharge to Home Exercise Program,Discharge from Speech Therapy Reason for Discharge Goals met, pt independent with HEP.
== END 2022-07-15 16:25 | disposition home or self-care (01) ==
LOC: SP 14:30
PROVIDERS: Absent Provider Student in an Organized Health Care Education/Training Program; Family Provider Student in an Organized Health Care Education/Training Program; PCP Student in an Organized Health Care Education/Training Program; Referring Provider Otolaryngology Plastic Surgery within the Head & Neck; Visit Provider Otolaryngology Plastic Surgery within the Head & Neck
DX: D48.0 Neoplasm of uncertain behavior of bone and articular cartilage (principal); C06.9 Malignant neoplasm of mouth, unspecified
CPT/HCPCS: 92610

== ENCOUNTER 2022-08-22 08:07 | Outpatient (CLI) | payer MEDICARE, OTHER, SELFPAY ==
[2021-10-26 14:07] VITALS: BMI 24.0
[2022-08-22] VITALS (8 sets, daily range): BP systolic 130–168; BP diastolic 65–87; PULSE 64–72; RESP 14–20; TEMP 36.1; O2SAT 97–100
--- NOTE | 2022-08-22 08:08 | DI.RAD.S_ITS ---
PROCEDURE: PAIN L/SI FACET INJ/BLK 1STL INDICATIONS: SPONDYLOSIS COMPARISON: None. FINDINGS: Fluoroscopic spot filming was performed to verify placement of spinal needles at the left side of L3-4 and L4-5 levels , as labeled on the films. Appropriate location(s) of the needle tip(s) was confirmed by injection of iodinated contrast. IMPRESSION: Fluoro guidance was provided intraoperatively for left L3-4 and L4-5 facet joint injection performed by the ordering physician. Dictated by: Alfredo Rivera M.D. on 08/22/2022 at 10:23 Approved by: Alfredo Rivera M.D. on 08/22/2022 at 10:29
[2022-08-22] MEDS: MIDAZOLAM 2 MG/2 ML VIAL IV (09:02)
[2022-08-22] MEDS: IOPAMIDOL 15 ML VIAL 3 ML INJ (09:06)
[2022-08-22] MEDS: BETAMETHASONE 30 MG/5 ML MDV 12 MG INJ (09:07)
[2022-08-22] MEDS: BUPIVACAINE 0.5% (PF) 10 ML VIAL 2 ML SUBCUT (09:08)
--- NOTE | 2022-08-22 09:17 | P.PCN_ITS ---
Date/Time/Diagnoses Date of procedure: 08/22/22 Time of procedure: 09:21 Pre-procedure diagnosis: 1. FACET ARTHROPATHY, 2. AXIAL LBP, 3. MULTILEVEL DDD Post-procedure diagnosis: same Procedure Notes Procedure: 1. FLUOROSCOPICALLY GUIDED CONTRAST CONTROLLED FACET JOINT INJECTIONS LEFT L3/4, L4/5 Indications: Porsche Valente is referred by Dr. Tran for treatment of Axial LBP Physician: Merrill Wang Total Fluoroscopy time (seconds): 9 Total sedation minutes: 10 Complications: none Procedure in detail & Post-procedure care: FINDINGS Multilevel Facet Arthropathy with Clinically significant axial LBP DESCRIPTION OF PROCEDURE Fluoroscopically guided, contrast-controlled left L3/4, L4/5 facet joint injections. Following review of allergy and review of potential side effects and complications, including, but not necessarily limited to, infection, allergic reaction, local tissue breakdown, stroke, temporary or permanent nerve injury, paralysis, and possible , the patient indicated that the patient understood and agreed to proceed. An informed consent document was signed by the patient, witnessed by a nurse, and placed in the patient's chart. Additionally, other treatment options including medications, modalities, and physical therapy were reviewed with the patient. After review of previous anaesthesic history and IV conscious sedation the patient was deemed safe to proceed with today?s procedure with IV conscious sedation as ASA class II designation. Safety time-out was performed to confirm patient ID, procedure to be performed and site of procedure. IV sedation was accomplished with a combination of 2mg of Versed administered by the RN after DO order, titrated to patient comfort during the course of the procedure while the patient remained responsive to all verbal commands. In the prone position, following sterile prep and drape of the lumbar region, the posterior aspect of the left L3/4, L4/5 facet joints were identified fluoroscopically. The skin was anesthetized via a 25-gauge 1.5-inch needle with 1% lidocaine solution into the corresponding facet joints. At this point, a 22- gauge 3.5-inch spinal needle was atraumatically introduced and advanced under fluoroscopic guidance into the corresponding facet joints. Following negative aspiration, injections of approximately 0.2cc of Isovue 200 confirmed interarticular placement without vascular uptake. Radiological data, including multiple fluoroscopic views of the lumbosacral spine, reveal a spinal needle at the left L3/4, L4/5 facet joints. Subsequent views show flow of contrast material both superiorly and inferiorly within the joint space without vascular or intrathecal uptake. At this point, a total of 0.5cc including a mixture of 0.25cc Marcaine and 0.25cc betamethasone was injected without complication into each of the corresponding facet joints. The patient tolerated the procedure well without signs or symptoms of complications prior to transfer to the recovery area for further monitoring. The patient was then transferred to the recovery area where they were observed for an appropriate period of time after the injection. The patient reported a VAS score of 7 prior to the procedure and a post-procedure VAS of 0. POSTOP INSTRUCTIONS The patient was provided a Pain Log to continue to record their response to the target-specific procedure prior to follow-up visit with their referring physician. Additionally, specific post-injection care instructions and a contact number to our office were provided if concerns arise regarding possible complications associated with the procedure are suspected.
== END 2022-08-22 09:48 | disposition home or self-care (01) ==
PROVIDERS: Family Provider Student in an Organized Health Care Education/Training Program; PCP Student in an Organized Health Care Education/Training Program; Referring Provider Physical Medicine & Rehabilitation; Visit Provider Physical Medicine & Rehabilitation
DX: M47.816 Spondylosis without myelopathy or radiculopathy, lumbar region (principal); M51.36 Other intervertebral disc degeneration, lumbar region
CPT/HCPCS: 64493; 64494; 99152; J0702; J2250

== ENCOUNTER → 2022-09-18 13:45 | Outpatient (CLI) | payer MEDICARE, OTHER, SELFPAY ==
[2021-10-26 14:07] VITALS: BMI 24.0
--- NOTE | 2022-09-18 13:47 | DI.RAD.S_ITS ---
PROCEDURE: XR KNEE LT 3V INDICATIONS: Left knee pain 4 years TECHNIQUE: 3 views of the knee were acquired. COMPARISON: None. FINDINGS: Bones: Moderate degenerative changes, particularly with joint space narrowing in the lateral and patellofemoral compartment. Patellar enthesopathy. No displaced fracture. No dislocation. There is subluxation of the patella toward the lateral side. Soft tissues: No significant effusion. A small bone fragment adjacent to the proximal MCL attachment, likely from prior injury. IMPRESSION: Lateral and patellofemoral degenerative changes. The patella is subluxed laterally, which can be seen with maltracking. A small bone fragment adjacent to the proximal MCL attachment may be from prior injury. If there is high concern for further derangement, consider MRI evaluation. Dictated by: Temo Quarles M.D. on 09/18/2022 at 15:49 Approved by: Temo Quarles M.D. on 09/18/2022 at 15:50
== END ==
PROVIDERS: Family Provider Student in an Organized Health Care Education/Training Program; PCP Student in an Organized Health Care Education/Training Program; Referring Provider Physical Medicine & Rehabilitation; Visit Provider Physical Medicine & Rehabilitation
DX: M17.12 Unilateral primary osteoarthritis, left knee (principal); S83.012A Lateral subluxation of left patella, initial encounter; M47.816 Spondylosis without myelopathy or radiculopathy, lumbar region; M48.061 Spinal stenosis, lumbar region without neurogenic claudication; M43.16 Spondylolisthesis, lumbar region; I48.0 Paroxysmal atrial fibrillation
CPT/HCPCS: 73562; 99214

== ENCOUNTER 2022-10-15 08:12 | Outpatient (CLI) | payer MEDICARE, OTHER, SELFPAY ==
[2021-10-26 14:07] VITALS: BMI 24.0
[2022-10-15] VITALS (7 sets, daily range): BP systolic 130–178; BP diastolic 69–81; PULSE 68–75; RESP 12–21; TEMP 36; O2SAT 97–100
--- NOTE | 2022-10-15 08:13 | DI.RAD.S_ITS ---
PROCEDURE: PAIN L/S TRANSFORAMINAL INJECT INDICATIONS: SPONDYLOSIS COMPARISON: [facility], XA, PAIN L/SI FACET INJ/BLK 1STL, 08/22/2022, 10:05. [facility], XA, PAIN L/S TRANSFORAMINAL INJECT, 04/23/2022, 15:18. FINDINGS: Fluoroscopic spot filming was performed to verify placement of a spinal needle at the L5-S1 level, as labeled on the films. Appropriate location of the needle tip was confirmed by injection of iodinated contrast. IMPRESSION: No significant intraprocedural abnormality. Dictated by: Joshua Mustafa M.D. on 10/15/2022 at 10:53 Approved by: Joshua Mustafa M.D. on 10/15/2022 at 10:54
[2022-10-15] MEDS: MIDAZOLAM 2 MG/2 ML VIAL IV (09:06)
[2022-10-15] MEDS: BUPIVACAINE 0.25% (PF) VIAL 2 ML INJ (09:09)
[2022-10-15] MEDS: DEXAMETHASONE 10 MG/ML VIAL 20 MG INJ (09:10)
[2022-10-15] MEDS: BETAMETHASONE 30 MG/5 ML MDV 6 MG INJ (09:10)
[2022-10-15] MEDS: IOPAMIDOL 15 ML VIAL 3 ML INJ (09:10)
--- NOTE | 2022-10-15 09:27 | P.PCN_ITS ---
Date/Time/Diagnoses Date of procedure: 10/15/22 Time of procedure: 09:27 Pre-procedure diagnosis: 1. FORAMINAL STENOSIS WITH LE SYMPTOMS Post-procedure diagnosis: same Procedure Notes Procedure: 1. FLUOROSCOPICALLY GUIDED CONTRAST CONTROLLED TRANSFORAMINAL EPIDURAL STEROID INJECTION - Left L5/S1 Indications: Ivy is referred by Dr. Tran for treatment of Foraminal Stenosis with Left LE Symptoms Physician: Merrill Wang Total Fluoroscopy time (seconds): 12 Total sedation minutes: 12 Complications: none Procedure in detail & Post-procedure care: FINDINGS Foraminal Nerve Root Compression secondary to disc disease and facet hypertrophy DESCRIPTION OF PROCEDURE Following review of allergy and review of potential side effects and complications, including, but not necessarily limited to, infection, allergic reaction, local tissue breakdown, stroke, temporary or permanent nerve injury, paralysis, and possible , the patient indicated that the patient understood and agreed to proceed. An informed consent document was signed by the patient, witnessed by a nurse, and placed in the patient's chart. Additionally, other treatment options including medications, modalities, and physical therapy were reviewed with the patient. After review of previous anaesthesic history and IV conscious sedation the patient was deemed safe to proceed with today?s procedure with IV conscious sedation as ASA class II designation. Safety time-out was performed to confirm patient ID, procedure to be performed and site of procedure. IV sedation was accomplished with a combination of 2mg of Versed was administered by the RN after DO order, titrated to patient comfort during the course of the procedure while the patient remained responsive to all verbal commands In the prone position following sterile prep and drape of the lumbar region, the Left L5/S1 posterior neuroforamen was identified fluoroscopically. The skin was anesthetized via a 25-gauge 1.5-inch needle with 1% lidocaine solution. At this point, a 25-gauge 3.5-inch spinal needle was atraumatically introduced and advanced under fluoroscopic guidance through the posterior Left L5/S1 neuroforamen to approximately the anterior aspect of the canal. Depth was confirmed on lateral view. Following negative aspiration, injection of approximately 1.5 cc of Isovue 200 under live fluoroscopy in the AP view confi rmed excellent flow along the nerve root, into the epidural space without vascular or intrathecal uptake observed Radiological data, including multiple fluoroscopic views of the lumbosacral spine, reveal a spinal needle at the Left L5/S1 posterior neuroforamen. Subsequent views show flow of contrast material flowing superiorly and inferiorly along the nerve root confirming epidural flow. Subsequently, a test dose of 1.5 cc of 1% lidocaine solution was administered and patient was observed for two minutes for signs or symptoms of complications, including abdominal pain, shortness of breath, bilateral upper or lower extremity weakness, nausea and vomiting, prior to steroid injection. At this point, a total of 3cc or 20mg of dexamethasone and 6mg of betamethasone was injected without incident. The procedure tolerated the procedure well without signs or symptoms of complications prior to transfer to the recovery area continued monitoring without incident. The patient was then transferred to the recovery area where they were observed for an appropriate time after the injection. The patient reported a VAS score of 7 prior to the procedure and a post-procedure VAS of 0. POST OP INSTRUCTIONS The patient was provided a Pain Log to continue to record their response to the target-specific procedure prior to follow-up visit with their referring ph ysician. Additionally, specific post-injection care instructions and a contact number to our office were provided if concerns arise regarding possible complications associated with the procedure are suspected.
== END 2022-10-15 09:37 | disposition home or self-care (01) ==
PROVIDERS: Family Provider Student in an Organized Health Care Education/Training Program; PCP Student in an Organized Health Care Education/Training Program; Referring Provider Physical Medicine & Rehabilitation; Visit Provider Physical Medicine & Rehabilitation
DX: M48.07 Spinal stenosis, lumbosacral region (principal); M51.17 Intervertebral disc disorders with radiculopathy, lumbosacral region
CPT/HCPCS: 64483; 99152; J0702; J1100; J2250; J3490

== ENCOUNTER → 2023-02-21 07:16 | Outpatient (CLI) | payer MEDICARE, OTHER, SELFPAY ==
[2021-10-26 14:07] VITALS: BMI 24.0
--- NOTE | 2023-02-21 07:20 | DI.MRI.S_ITS ---
PROCEDURE: MR KNEE LT WO CON INDICATIONS: left knee pain TECHNIQUE: Noncontrast sagittal PD fast spin echo and T2 fast spin echo with fat saturation, sagittal 3-D FLASH with fat saturation; coronal T1 spin echo and PD fast spin echo with fat saturation, and axial PD fast spin echo with fat saturation through the knee. COMPARISON: None. FINDINGS: Image quality: Excellent. Menisci: There is amorphous and linear oblique high T2 signal intensity traversing the inner, middle, and peripheral thirds of the medial meniscal body and posterior horn, demonstrating inferior articular surface extension, indicating complex tearing. Truncation of the free edge of the lateral meniscal body is present, indicating radial tearing. Lateral extrusion of the lateral meniscus is present. There is linear oblique and amorphous high signal intensity within the inner, middle, and peripheral thirds of the anterior and posterior horns of the lateral meniscus, demonstrating superior and inferior articular surface extension, indicating complex tearing. Cruciate ligaments: Moderate T2 signal elevation throughout the anterior cruciate ligament is present. Low-grade tearing of the posterior cruciate ligament is present. Medial structures: The medial collateral ligament appears intact. Visualized portions of the pes anserinus tendons appear normal. No abnormal bursal fluid. Lateral structures: The lateral collateral ligament, long and short heads of the biceps femoris tendon appear intact. The popliteus tendon appears normal. Iliotibial band appears normal. Anterior structures: The quadriceps and patellar tendons appear intact. Lateral patellar subluxation. Lateral ventral trochlear prominence. No edema in the infrapatellar fat pad. Bones and cartilage: No bone marrow contusions nor acute fracture. Subchondral microcyst formation within the lateral patellar facet and lateral femoral trochlea. There is mild irregularity of the cortical surface of the lateral femoral condyle and lateral tibial plateau, possibly indicating healed fracture deformity. There is mild subchondral degenerative marrow edema within the weight-bearing aspects of the lateral femoral condyle and lateral tibial plateau. There is moderate tricompartmental periarticular osteophyte formation. Mild articular cartilage loss diffusely overlies the weight-bearing aspects of the medial femoral condyle and medial tibial plateau. Severe articular cartilage loss overlies the weight-bearing aspects of the lateral femoral condyle and lateral tibial plateau. Severe articular cartilage loss overlies the lateral patellar facet, patellar apex, and lateral femoral trochlea. Joint space: There is a moderate knee joint effusion and a trace Lai's cyst. Normal appearing synovial plicae are incidentally noted. IMPRESSION: 1. Partial-thickness tears of the anterior and posterior cruciate ligaments. 2. Medial and lateral meniscal tearing. 3. Tricompartmental osteoarthritis with associated articular cartilage loss. 4. Findings consistent with lateral patellofemoral friction syndrome in the appropriate clinical setting. 5. Knee joint effusion. Dictated by: Carina Pacheco M.D. on 02/21/2023 at 10:35 Approved by: Carina Pacheco M.D. on 02/21/2023 at 10:38
--- NOTE | 2023-02-21 07:23 | DI.CT.S_ITS ---
PROCEDURE: CT SOFT TISSUE NECK W CON INDICATIONS: Malignant neoplasm of mouth;LEFT KNEE PAIN TECHNIQUE: After the administration of intravenous contrast, 3.0 mm axial sections acquired from the sella to the aortic arch. Additional oblique axial 3.0 mm sections acquired through the pharynx. 3 mm thick coronal and sagittal reformats were generated. For radiation dose reduction, the following was used: automated exposure control. COMPARISON: [facility], CT, CT SOFT TISSUE NECK W CON, 10/02/2021, 13:38. [facility], CT, CT SOFT TISSUE NECK W CON, 07/09/2022, 11:53. FINDINGS: Image quality: Excellent. Lymph nodes: No enlarged lymph nodes seen throughout the neck. Vessels: Visualized vasculature appears patent. Neck spaces: The oropharynx, nasopharynx, and pharynx demonstrate no mucosal lesions. The vocal cords, false vocal cords, pyriform sinuses, epiglottis, vallecula, and tongue base all appear normal. Extramucosal spaces appear unremarkable. Glands: The parotid and submandibular glands appear normal. Thyroid gland is unremarkable. Miscellaneous: Visualized brain and orbits appear normal. Lung apices appear clear. Superficial soft tissues appear normal. Bones: Surgical changes reflecting partial right mandibulectomy. There is a 7 x 8 mm focus of soft tissue density within the subcutaneous fat adjacent to the resection cavity on series 2, image 21. It is unchanged compared to prior exam and suspected to be postsurgical. Mucosal thickening is present in the left maxillary sinus. IMPRESSION: Stable postsurgical change in fluid evidence of recurrent or residual disease. Dictated by: Susie Dunlap M.D. on 02/21/2023 at 12:07 Approved by: Susie Dunlap M.D. on 02/21/2023 at 12:38
[2023-02-21 07:48] LABS: Estimated Glomerular Filt Rate > 60 mL/min (>60)
[2023-02-21 12:00] LABS: Add Manual Diff / Slide Review NO; Basophils Absolute Auto 0 /uL (0-100); Basophils Percent Auto 0.6 % (0-2); Eosinophils Absolute Auto 200 /uL (0-450); Eosinophils Percent Auto 3.4 % (2-4); Hematocrit 37.7 % (36-46); Hemoglobin 12.5 g/dL (12.0-16.0); Lymphocytes Absolute Auto 1200 /uL (1100-4500); Lymphocytes Percent Auto 24.6 % (25-40); Mean Corpuscular HGB Conc 33.1 % (30-36); Mean Corpuscular Hemoglobin 29.9 PG (26-34); Mean Corpuscular Volume 90.3 fL (80-100); Monocytes Absolute Auto 500 /uL (0-900); Monocytes Percent Auto 10.1 % (3-14); Neutrophils Absolute Auto 2900 /uL (1500-7000); Neutrophils Percent Auto 61.3 % (50-75); Platelet Count 173 X10^3/uL (150-400); Red Blood Cell Count 4.17 X10^6/uL (4.0-5.2); Red Cell Distribution Width 14.3 % (11.6-14.8); White Blood Cell Count 4.7 X10^3/uL (4.5-11.0)
[2023-02-21 12:12] LABS: Alanine Aminotransferase 25 IU/L (<35); Albumin 4.2 g/dL (3.5-5.0); Albumin Globulin Ratio 1.6 (1.0-2.8); Alkaline Phosphatase 50 U/L (38-126); Aspartate Aminotransferase 35 IU/L (14-36); Bilirubin Total 0.7 mg/dL (0.2-1.3); Blood Urea Nitrogen 19 mg/dL (7-17); Calcium 9.3 mg/dL (8.4-10.2); Carbon Dioxide 29 mmol/L (22-32); Chloride 98 mmol/L (98-107); Cholesterol 218 mg/dL (140-199); Estimated Glomerular Filt Rate > 60 mL/min (>60); Globulin 2.7 g/dL (1.7-4.1); Glucose 91 mg/dL (80-110); HDL Cholesterol 88 mg/dL (40-60); HEMOLYSIS < 15 (0-50); LDL Cholesterol Calculated 110 mg/dL (<100); Potassium 4.4 mmol/L (3.4-5.1); Sodium 134 mmol/L (137-145); Total Protein 6.9 g/dL (6.3-8.2); Triglycerides 99 mg/dL (35-150)
[2023-02-21 12:28] LABS: Vitamin D 25 Hydroxy (D3) 61.1 ng/mL (30.0-100.0)
[2023-02-21 12:42] LABS: TSH w/ Reflex to FT4 1.94 uIU/mL (0.47-4.68)
== END ==
PROVIDERS: Radiology Diagnostic Radiology; Family Provider Student in an Organized Health Care Education/Training Program; PCP Pediatrics; Referring Provider Physical Medicine & Rehabilitation; Visit Provider Physical Medicine & Rehabilitation
DX: D48.0 Neoplasm of uncertain behavior of bone and articular cartilage (principal); C06.9 Malignant neoplasm of mouth, unspecified; S83.232A Complex tear of medial meniscus, current injury, left knee, initial encounter; S83.272A Complex tear of lateral meniscus, current injury, left knee, initial encounter; S83.512A Sprain of anterior cruciate ligament of left knee, initial encounter; S83.522A Sprain of posterior cruciate ligament of left knee, initial encounter; M25.462 Effusion, left knee; M17.12 Unilateral primary osteoarthritis, left knee; M17.2 Bilateral post-traumatic osteoarthritis of knee; E03.9 Hypothyroidism, unspecified; M81.0 Age-related osteoporosis without current pathological fracture; I10 Essential (primary) hypertension; I48.0 Paroxysmal atrial fibrillation; K21.9 Gastro-esophageal reflux disease without esophagitis; M35.3 Polymyalgia rheumatica
CPT/HCPCS: 36415; 70491; 73721; 80053; 80061; 82306; 82565; 84443; 85025; Q9967

== ENCOUNTER → 2023-03-05 09:48 | Outpatient (CLI) | payer MEDICARE, OTHER, SELFPAY ==
[2021-10-26 14:07] VITALS: BMI 24.0
--- NOTE | 2023-03-05 09:50 | DI.RAD.S_ITS ---
PROCEDURE: XR THORACIC SPINE 3V INDICATIONS: RIB PAIN TECHNIQUE: 3 views of the thoracic spine were acquired. COMPARISON: None. FINDINGS: Bones: No fractures or dislocations. Mild rightward curvature of thoracic spine with apex at T7 level. [id number] levoscoliosis of thoracolumbar junction with apex at L1 level. Degenerative endplate changes throughout thoracic spine is seen. No suspicious bony lesions. 12 pairs of ribs are noted, and appear intact where visualized. Soft tissues: No paravertebral stripe thickening. IMPRESSION: S shaped scoliosis of thoracic and lumbar spine as above. Degenerative disc disease throughout thoracic spine. No acute compression fracture or spondylolisthesis. Dictated by: Alfredo Rivera M.D. on 03/05/2023 at 10:45 Approved by: Alfredo Rivera M.D. on 03/05/2023 at 10:46
--- NOTE | 2023-03-05 09:50 | DI.RAD.S_ITS ---
PROCEDURE: XR LUMBAR SPINE MIN 4V INDICATIONS: BACK PAIN TECHNIQUE: 5 views of the lumbar spine were acquired, including bilateral oblique views. COMPARISON: [facility], , XR LUMBAR SPINE MIN 4V, 10/26/2020, 12:18. FINDINGS: Bones: 5 nonrib-bearing vertebrae are present. There is moderate dextroscoliosis of thoracolumbar spine with apex at L1 level. Moderate to severe degenerative disc disease throughout lumbar spine is seen. No gross acute vertebral body compression fractures. No suspicious bony lesions. Soft tissues: Overlying bowel gas pattern is normal. No suspicious soft tissue calcifications. Oblique images: No gross pars defects. IMPRESSION: Moderate scoliosis as above. No gross acute compression fracture or significant spondylolisthesis. Moderate to severe degenerate disc disease throughout lumbar spine. Dictated by: Alfredo Rivera M.D. on 03/05/2023 at 10:47 Approved by: Alfredo Rivera M.D. on 03/05/2023 at 10:48
== END ==
PROVIDERS: Family Provider Student in an Organized Health Care Education/Training Program; PCP Pediatrics; Referring Provider Physical Medicine & Rehabilitation; Visit Provider Physical Medicine & Rehabilitation
DX: M51.34 Other intervertebral disc degeneration, thoracic region (principal); M51.36 Other intervertebral disc degeneration, lumbar region; M47.816 Spondylosis without myelopathy or radiculopathy, lumbar region; M48.061 Spinal stenosis, lumbar region without neurogenic claudication; R07.81 Pleurodynia; M41.9 Scoliosis, unspecified
CPT/HCPCS: 72072; 72110

== ENCOUNTER 2023-04-22 12:21 | Outpatient (CLI) | payer MEDICARE, OTHER, SELFPAY ==
[2021-10-26 14:07] VITALS: BMI 24.0
[2023-04-22] VITALS (8 sets, daily range): BP systolic 127–146; BP diastolic 63–86; PULSE 64–68; RESP 7–20; TEMP 36; O2SAT 96–100
--- NOTE | 2023-04-22 12:23 | DI.RAD.S_ITS ---
PROCEDURE: PAIN L/SI FACET INJ/BLK 1STL INDICATIONS: SPONDYLOSIS COMPARISON: [facility], , PAIN L/SI FACET INJ/BLK 1STL, 08/22/2022, 10:05. FINDINGS: Fluoroscopic spot filming was performed to verify placement of spinal needles at the bilateral L2, L3 and L4 pedicle level(s), as labeled on the films. Appropriate location(s) of the needle tip(s) was confirmed by injection of iodinated contrast. IMPRESSION: Access needles appropriately positioned for bilateral L2, L3 and L4 medial branch blocks. Dictated by: Kaur Lux MD, PhD on 04/22/2023 at 14:47 Approved by: Kaur Lux MD, PhD on 04/22/2023 at 14:49
[2023-04-22] MEDS: MIDAZOLAM 2 MG/2 ML VIAL IV (13:41)
[2023-04-22] MEDS: BUPIVACAINE 0.5% (PF) 10 ML VIAL 2 ML INJ (13:47)
[2023-04-22] MEDS: iopamidoL 15 ML VIAL 3 ML INJ (13:47)
--- NOTE | 2023-04-22 14:00 | P.PCN_ITS ---
Date/Time/Diagnoses Date of procedure: 04/22/23 Time of procedure: 14:00 Pre-procedure diagnosis: 1. FACET ARTHROPATHY Post-procedure diagnosis: same Procedure Notes Procedure: 1. Left L2, L3 and L4 MB BLOCKS Indications: Porsche Valente is referred by Dr. Haas for treatment of Left Axial LBP. Physician: Merrill Wang Total Fluoroscopy time (seconds): 13 Total sedation minutes: 11 Complications: none Procedure in detail & Post-procedure care: DESCRIPTION OF PROCEDURE Fluoroscopically guided, contrast-controlled left L2, L3 and L4 medial branch blocks with 0.5cc of 0.5% Marcaine. Following review of allergy and review of potential side effects and complications, including, but not necessarily limited to, infection, allergic reaction, local tissue breakdown, nerve injury, paralysis, stroke and possible , the patient indicated that the patient understood and agreed to proceed. An informed consent document was signed by the patient, witnessed by a nurse, and placed in the patient's chart. After review of previous anaesthesic history and IV conscious sedation the patient was deemed safe to proceed with today?s procedure with IV conscious sedation as ASA class II designation. Safety time-out was performed to confirm patient ID, procedure to be performed and site of procedure. IV sedation was accomplished with a combination of 2mg of Versed was administered by the RN after DO order, titrated to patient comfort during the course of the procedure while the patient remained responsive to all verbal commands In the prone position, following sterile prep and drape of the lumbar region, the left L2, L3 and L4 anatomical location of the medial branch of the dorsal ramus was identified fluoroscopically. Subsequently an anesthetic skin wheal using 1% lidocaine solution was initiated at each of the anatomical spots. Subsequently then a 22-gauge 3.5-inch spinal needle was atraumatically introduced and advanced under fluoroscopic guidance at each of the corresponding sites at the left L2, L3 and L4 MB. After negative aspiration, 0.2 cc of Isovue 200 was injected, confirming placement without vascular or intrathecal uptake. Subsequently then 0.5cc of 0.5% Marcaine solution was injected at each of the corresponding sites at the left L2, L3 and L4 medial branch locations. The patient tolerated the procedure well without signs or symptoms of complications. The procedure tolerated the procedure well without signs or symptoms of complications prior to transfer to the recovery area continued monitoring without incident. Post-procedure, the patient was monitored initiating provocative activities to measure the amount of relief from block of the facetogenic pain. The patient reported a VAS of 7 prior to the procedure and a post-procedure VAS of 1. It has been a pleasure to assist in the diagnostic and therapeutic care of your patient. POST OP INSTRUCTIONS The patient was provided with a Pain Log to complete over the next several hours and subsequent days prior to the patient's follow up with the ordering physician. If the patient has audit specialist relief to the solution applied, then they may be a candidate for medial branch rhizotomy. The patient is aware, was provided, once again, with a Pain Log and will follow up with the referring physician for review and clinical correlation.
== END 2023-04-22 14:18 | disposition home or self-care (01) ==
LOC: RAD 12:22
PROVIDERS: Family Provider Student in an Organized Health Care Education/Training Program; PCP Pediatrics; Referring Provider Physical Medicine & Rehabilitation; Visit Provider Physical Medicine & Rehabilitation
DX: M47.816 Spondylosis without myelopathy or radiculopathy, lumbar region (principal)
CPT/HCPCS: 64493; 64494; 99152; J2250

== ENCOUNTER → 2023-05-07 10:39 | Outpatient (CLI) | payer MEDICARE, OTHER, SELFPAY ==
[2021-10-26 14:07] VITALS: BMI 24.0
--- NOTE | 2023-05-07 10:40 | DI.RAD.S_ITS ---
PROCEDURE: XR DEXA AXIAL SKELETON INDICATIONS: asymptomatic age related postmenopausal state COMPARISON: [facility], CR, XR DEXA AXIAL SKELETON, 06/10/2022, 10:21. FINDINGS: This blank DEXA report has been sent in error by the PACS system. The correct and complete report will be forthcoming in 1-2 days. Thank you for your patience and understanding. Dictated by: Peyman Brandon M.D. on 05/07/2023 at 15:35 Approved by: Peyman Brandon M.D. on 05/07/2023 at 15:35
--- NOTE | 2023-05-07 11:05 | DI.DEXA.S_ITS ---
Bone Density Report Name: TARAS BELCHER Age: 78 Sex: Female Ethnicity: White Date of : 1945 Indication: osteopenia; prior fracture; Referring Provider: GEOVANI ARNOLD Study: Bone densitometry was performed. Exam Date: May 07, 2023 Accession number: [id number] Bone Density: Region BMD T-score Z-score Classification AP Spine(L1-L4) 1.085 0.3 3.0 Normal Femoral Neck (Left) 0.648 -1.8 0.5 Osteopenia Total Hip (Left) 0.638 -2.5 -0.4 Osteoporosis Femoral Neck (Right) 0.685 -1.5 0.8 Osteopenia Total Hip (Right) 0.692 -2.0 0.0 Osteopenia Total Hip Mean 0.665 -2.3 -0.2 Osteopenia World Health Organization criteria for BMD impression classify patients as: Normal (T-score at or above -1.0), Osteopenia (T-score between -1.0 and -2.5), or Osteoporosis (T-score at or below -2.5). 10-year Fracture Risk: FRAX not reported because: Some T-score for Spine Total or Hip Total or Femoral Neck at or below -2.5 Prior hip or vertebral fracture Previous Exams: -- Region Exam Age BMD T-score BMD Change BMD Change Date g/cm2 vs Baseline vs Previous -- AP Spine (L1-L4) 05/07/2023 78 1.085 0.3 -0.002 (-0.2%) -0.002 (-0.2%) 06/10/2022 77 1.087 0.4 Total Hip(Left) 05/07/2023 78 0.638 -2.5 -0.012 (-1.8%) -0.012 (-1.8%) 06/10/2022 77 0.650 -2.4 Total Hip(Right) 05/07/2023 78 0.692 -2.0 -0.010 (-1.4%) -0.010 (-1.4%) 06/10/2022 77 0.702 -2.0 -- *Denotes significance at 95% confidence level, LSC for AP Spine = 0.022 g/cm2, LSC for Total Hip = 0.027 g/cm2 Impression: The patient has established osteoporosis, based on the Left Total Hip T-score and the existence of a prior fracture. The patient has risk factors, including: previous fracture. No significant bone loss was observed. Discussion: HIGH RISK OF FRACTURE. BONE DENSITY IS UNDESIRABLY LOW AT ONE OR MORE SKELETAL SITES, CONSISTENT WITH POSTMENOPAUSAL OSTEOPOROSIS. This patient's lowest T-score, in a patient who has previously fractured, meets the World Health Organization's (WHO) criteria for severe osteoporosis. In untreated patients, the risk of osteoporotic fracture increases approximately two-fold for each 1.0 SD decrease in T-score. Low bone density is not the only risk factor for fracture; also consider factors such as patient's age, frailty or poor health, risk of falling, risk of injury, previous osteoporotic fracture, family history of osteoporosis, cigarette smoking, low body weight, etc. Not everyone with low bone mineral density has osteoporosis; osteomalacia and other metabolic bone disorders should also be considered. Patients who have osteoporosis should be evaluated for specific diseases and conditions (secondary causes) that may cause or contribute to bone loss. The [place] [employer] (AACE) and National Osteoporosis Foundation (NOF) recommend pharmacologic intervention for all postmenopausal women with a previous hip or vertebral fracture and a T-score in this range. The patient should follow a healthful lifestyle (good nutrition with adequate calcium and vitamin D, and appropriate weight-bearing exercise). Follow-Up: Consider a repeat BMD and Vertebral Fracture Assessment (VFA) exam in 2 years or sooner if medically necessary, to reassess this patient's status. Reported by: TANA AVILA M.D. on 05/07/2023 11:56:00 AM.
== END ==
PROVIDERS: Family Provider Student in an Organized Health Care Education/Training Program; PCP Family Medicine; Referring Provider Family Medicine; Visit Provider Family Medicine
DX: Z78.0 Asymptomatic menopausal state (principal); M81.0 Age-related osteoporosis without current pathological fracture
CPT/HCPCS: 77080

== ENCOUNTER 2023-05-19 14:16 | Emergency (ER) | payer MEDICARE, OTHER, SELFPAY ==
[2021-10-26 14:07] VITALS: BMI 24.0
[2023-05-19 14:28] VITALS: BP 157/80; PULSE 74; RESP 17; TEMP 37.2; O2SAT 98; BMI 21.8
--- NOTE | 2023-05-19 14:44 | ED_ITS ---
HPI - Extremity Problem General Chief complaint: Extremity Problem,Nontraumatic Stated complaint: LEFT LEG PAIN NO FALL Time Seen by Provider: 05/19/23 14:24 Source: patient Mode of arrival: Ambulatory History of Present Illness HPI Narrative: Patient here with for complaints of left posterior thigh pain that started at 7:00 a.m. today. She got up at 5:00 a.m. and there was no pain. 2 hours later she had difficulty bearing weight on it. Denies any fall or injury. No unusual activity over the weekend. Denies straining her leg. She is on warfarin. She checked her INR is 1.8 at home. Patient had bilateral PEs 20 years ago. Denies any blood clots in her legs before. Denies any chest pain or shortness of breath. Pants were removed for exam. Skin exposed. Related Data Home Medications Medication Instructions Recorded Confirmed cholecalciferol (vitamin D3) 50 2,000 unit PO DAILY 01/11/19 04/30/23 mcg (2,000 unit) capsule multivitamin 1 tab PO DAILY 01/11/19 04/30/23 lutein 25 mg-zeaxanthin 5 mg 25 cap PO DAILY 05/04/19 04/30/23 capsule (Ocuvite Lutein) nitroglycerin 0.4 mg sublingual 0.4 mg sublingual PRN PRN Chest 08/31/19 04/30/23 tablet Pain mecobalamin (vitamin B12) PO 03/31/20 04/30/23 ascorbic acid (vitamin C) PO DAILY 03/14/21 04/30/23 carvedilol 12.5 mg tablet See Rx Instructions .Route .COMPLEX 04/30/23 05/19/23 losartan 50 mg tablet 100 mg PO BEDTIME 04/30/23 05/19/23 Previous Rx's Medication Instructions Recorded diclofenac sodium 1 % topical gel 2 g topical QID PRN pain #100 grams 05/20/22 levothyroxine 50 mcg tablet See Rx Instructions .Route 05/22/22 .COMPLEX #90 tabs omeprazole 20 mg capsule,delayed 20 mg PO DAILY #90 caps 09/04/22 release warfarin 5 mg tablet 5 mg PO DAILY #90 tabs 10/04/22 prednisone 5 mg tablet 5 mg PO DAILY #30 tabs 05/21/23 gabapentin 300 mg capsule 300 mg PO 3XD for pain #270 caps 06/02/23 methocarbamol 500 mg tablet 500 mg PO BID PRN for muscle spasm 06/02/23 #180 tabs Allergies Allergy/AdvReac Type Severity Reaction Status Date / Time ampicillin Allergy Intermediate Rash Verified 04/30/23 08:04 Penicillins Allergy Intermediate Was told Verified 04/30/23 08:04 not to take due to Ampicillin reaction adhesive tape AdvReac Mild Blister/Skin Verified 04/30/23 08:04 came off. erythromycin base AdvReac Vomiting Verified 04/30/23 08:04 [From Erythrocin] within 10 min of taking oxycodone AdvReac twitching Verified 05/19/23 14:33 Review of Systems Review of Systems Narrative: GENERAL: negative chills, fatigue, malaise, fever, sweats. HEENT: negative sinus pain, ear pain, sore throat RESPIRATORY: negative dyspnea, cough CARDIOVASCULAR: negative chest pain, palpitations GASTROINTESTINAL: negative nausea, vomiting, abdominal pain : negative dysuria, frequency, hematuria MUSCULOSKELETAL: Positive muscle or bony pain SKIN: negative rash, skin lesions NEUROLOGIC: negative weakness, numbness ROS Unobtainable: All systems reviewed & are unremarkable except as noted in HPI and below Patient History Medical History Vitamin D deficiency Left knee DJD Facet arthropathy, lumbar Raynaud phenomenon Foraminal stenosis of lumbar region Lichen planus Osteoporosis Tenosynovitis of finger Spondylisthesis Vision disorder Rheumatoid arthritis Allergies (~1999) TGA (transient global amnesia) (~2014) Headache Scoliosis (~1954) Rib fractures Pertussis (~1954) Rubella (~1949) Mumps Measles (~1949) Chicken pox (~1949) Hearing loss (~2008) Infertility (~1966) GERD (gastroesophageal reflux disease) (~2004) Diverticular disease (~2010) Colon polyps (~2016) Heart stopped beating (~2010) Heart failure (~2010) Deep vein thrombosis (~2010) History of pulmonary embolism (~2010) Paroxysmal A-fib (~2010) Essential hypertension (~2004) Hypothyroid Surgical History Anesthesia History of dilation and curettage History of tubal ligation History of surgery (~1966) Strabismus History of tonsillectomy and adenoidectomy Cataracts, bilateral (~2013) History of kidney surgery (~2010) History of colectomy (~2010) S/P exploratory laparotomy S/P devora (~1992) S/P partial colectomy (~2010) Family History Father Stroke Loud snoring Mother Alcohol abuse Brother Hypertension Sister Back problem Grandfather Cancer Grandmother Diabetes mellitus Grandfather Stroke Grandmother Stroke Social History household members: spouse Smoking Status: Never smoker Smoking Status: Never smoker Alcohol type: other Substance Use Type: does not use Exam Narrative Exam Narrative: GENERAL: in no distress, not toxic not dyspneic HEAD: Normocephalic. EYES: Pupils equal round EXTREMITIES: No gross deformities. Examination left lower extremity. Nontender calf, no palpable cords. There is tenderness to the medial tendon of the hamstring. Otherwise no palpable cords of the posterior thigh. Healing ecchymosis to the mid anterior thigh. No palpable abscess. Thigh and leg are warm soft and pink. No pain out of proportion to exam. Patient is able to bear weight. NEURO: AOx4. Clear speech SKIN: Warm and dry PSYCH: Not anxious, is cooperative Initial Vital Signs Initial Vital Signs: Vital Signs Temperature 98.9 F 05/19/23 14:28 Pulse Rate 74 05/19/23 14:28 Respiratory Rate 17 05/19/23 14:28 Blood Pressure 157/80 H 05/19/23 14:28 Pulse Oximetry 98 05/19/23 14:28 Oxygen Delivery Method Room Air 05/19/23 14:28 Course Orders Ordered: ED Orders 05/19/23 14:43 US periph venous low extrem lt Stat Vital Signs Vital signs: Vital Signs - 8 hr 05/19/23 14:28 Temperature 98.9 F Pulse Rate 74 Respiratory Rate 17 Blood Pressure 157/80 H Pulse Oximetry 98 Oxygen Delivery Method Room Air MDM - Extremity (Nontraumatic) Imaging Data US - DVT: Radiologist's Impression: [address] [address] Ultrasound Report Signed Patient: Porsche Branham MR#: [id number] : 1945 Acct:[id number] Age/Sex: 78 / F Date of Service: 05/19/23 Loc: ED Accession Number: [id number] Procedure: perip venous low extrem lt Ordering Provider: Ha Roberto MD PROCEDURE: PERIPH VENOUS LOW EXTREM LT INDICATIONS: Left posterior thigh pain TECHNIQUE: Real-time imaging, as well as color and pulse Doppler interrogation, were performed of the lower extremity deep veins from the inguinal ligament to the popliteal fossa, with documentation of the visualized calf veins. COMPARISON: None. FINDINGS: The common femoral, femoral, popliteal, and the visualized calf veins are normally compressible, and free of intraluminal thrombus. Color and pulse Doppler demonstrate normal phasic intraluminal flow. There is normal augmentation response to distal compression maneuver. IMPRESSION: No evidence of DVT in visualized left lower extremity veins. Dictated by: Alfredo Rivera M.D. on 05/19/2023 at 15:20 Approved by: Alfredo Rivera M.D. on 05/19/2023 at 15:21 [facility] Narrative Medical decision making narrative: Patient here with for complaints of left posterior thigh pain that started at 7:00 a.m. today. She got up at 5:00 a.m. and there was no pain. 2 hours later she had difficulty bearing weight on it. Denies any fall or injury. No unusual activity over the weekend. Denies straining her leg. She is on warfarin. She checked her INR is 1.8 at home. Patient had bilateral PEs 20 ye ars ago. Denies any blood clots in her legs before. Denies any chest pain or shortness of breath. Pants removed for exam. Skin exposed. After history and exam ultrasound left leg. Patient agrees no blood work or x- rays indicated. No fall or injury. No recent illness. [facility] CC: Left leg pain Complicating co-morbidities: On warfarin for pulmonary embolism Data collected from: Patient and Medical records reviewed: No recent visit for this complaint Differential considered: Includes but not limited to tendon strain DVT SVT Exam documented above, pertinent findings include: Tender to the medial tendon of the hamstring left side Lab Test results independently reviewed as above. Pertinent findings: No blood work indicated this time Imaging studies independently reviewed: Left leg venous ultrasound no acute DVT Consultations: None indicated at this time Treatments: None indicated Re-evaluations: 4:08 p.m.. Reviewed with and patient results and exam. She does agree it is acutely tender at the medial tendon of the hamstring. She does agree for physical therapy has been a few years and she is had physical therapy. Reviewed with her with her chronic knee pain this may be wearing and tearing on her surrounding muscles and may need strengthening. She is appointment tomorrow with her pain management/sports medicine doctor, Dr. Tai lópez. She will referred to him for further management. Return precautions reviewed with her. She desires discharge home Discussion: Appropriate for discharge home. Exam is reassuring. Patient will likely need strengthening of the muscles around her left knee. She is chronic left knee pain. She is recently had MRI of the left knee by her provider Dr. Chavez. She agrees with treatment plan. She has a walker at home. Nontoxic at discharge. She desires discharge home Diagnosis: Acute hamstring pain Discharge Plan Departure Patient Disposition: Home Clinical Impression: Left thigh pain Instructions: DI for Musculoskeletal Pain Activity Restrictions/Additional Instructions: Please see Dr. Chavez tomorrow as scheduled. You may need referral for physical therapy. At this time ultrasound of your leg is reassuring. No blood clot is seen. Please use any walking devices including cane or walker at home to assist in walking. Return if worse if any questions or concerns Prescriptions: No Action diclofenac sodium 1 % gel 2 g TOP QID PRN (Reason: pain) Qty: 100 3RF Rx Instructions: apply to single elbow, wrist or hand; for hand includes palm/fingers/back of hand levothyroxine 50 mcg tablet See Rx Instructions .ROUTE .COMPLEX Qty: 90 3RF Dose Instruction: TAKE 1 TABLET DAILY Rx Instructions: TAKE 1 TABLET DAILY omeprazole 20 mg capsule,delayed release(DR/EC) 20 mg PO DAILY Qty: 90 3RF warfarin 5 mg tablet 5 mg PO DAILY Qty: 90 2RF Rx Instructions: 2.5mg and 5mg all other days; or as directed prednisone 5 mg tablet 5 mg PO DAILY Qty: 30 11RF gabapentin 300 mg capsule 300 mg PO 3XD Qty: 270 3RF methocarbamol 500 mg tablet 500 mg PO BID PRN (Reason: for muscle spasm) Qty: 180 3RF nitroglycerin 0.4 mg tablet, sublingual 0.4 mg sublingual PRN PRN (Reason: Chest Pain) carvedilol 12.5 mg tablet See Rx Instructions .ROUTE .COMPLEX Rx Instructions: must administer with a meal/food. change current carvedilol dose to one 1 2.5mg at night and one 6.25mg tab every morning. losartan 50 mg tablet 100 mg PO BEDTIME multivitamin tablet 1 tab PO DAILY cholecalciferol (vitamin D3) 2,000 unit capsule 2,000 unit PO DAILY lutein-zeaxanthin [Ocuvite Lutein 25] 25-5 mg capsule 25 cap PO DAILY mecobalamin (vitamin B12) PO ascorbic acid (vitamin C) PO DAILY Referrals: Clair Zacarias DO [Primary Care Provider] - Stand Alone Forms: Patient Portal/API
== END 2023-05-19 16:16 | disposition home or self-care (01) ==
PROVIDERS: Emergency Provider Emergency Medicine; Family Provider Student in an Organized Health Care Education/Training Program; PCP Family Medicine
DX: M79.652 Pain in left thigh (principal)
CPT/HCPCS: 93971; 99283

== ENCOUNTER 2023-05-20 10:27 | Outpatient (CLI) | payer MEDICARE, OTHER, SELFPAY ==
[2021-10-26 14:07] VITALS: BMI 24.0
[2023-05-20] VITALS (8 sets, daily range): BP systolic 133–175; BP diastolic 64–95; PULSE 66–71; RESP 13–19; TEMP 37.1; O2SAT 97–100
--- NOTE | 2023-05-20 11:15 | DI.RAD.S_ITS ---
PROCEDURE: PAIN L/S FACET INJ/BLK 1ST ALHAJI INDICATIONS: SPONDYLOSIS COMPARISON: [facility], , PAIN L/SI FACET INJ/BLK 1STL, 04/22/2023, 13:45. FINDINGS: Fluoroscopic spot filming was performed to verify placement of spinal needles on the left at the L2, L3, and L4 levels, as labeled on the films. Appropriate location of the needle tips was confirmed by injection of iodinated contrast. IMPRESSION: Intraprocedural examination demonstrating appropriate positions of the needles. Dictated by: Joshua Mustafa M.D. on 05/20/2023 at 17:23 Approved by: Joshua Mustafa M.D. on 05/20/2023 at 17:23
[2023-05-20] MEDS: MIDAZOLAM 2 MG/2 ML VIAL IV (11:48)
[2023-05-20] MEDS: iopamidoL 15 ML VIAL 3 ML INJ (11:53)
[2023-05-20] MEDS: LIDOCAINE 2% INJ MDV 20ML 5 ML INJ (11:54)
--- NOTE | 2023-05-20 12:03 | P.PCN_ITS ---
Date/Time/Diagnoses Date of procedure: 05/20/23 Time of procedure: 12:03 Procedure Notes Procedure: 1. Left L2, L3 and L4 MB BLOCKS SA Indications: Porsche Valente is referred by Dr. Haas for treatment of Left Axial LBP. Total Fluoroscopy time (seconds): 11 Total sedation minutes: 11 Complications: none Procedure in detail & Post-procedure care: DESCRIPTION OF PROCEDURE Fluoroscopically guided, contrast-controlled left L2, L3 and L4 medial branch blocks with 0.5cc of 2% lidocaine. Following review of allergy and review of potential side effects and complications, including, but not necessarily limited to, infection, allergic reaction, local tissue breakdown, nerve injury, paralysis, stroke and possible , the patient indicated that the patient understood and agreed to proceed. An informed consent document was signed by the patient, witnessed by a nurse, and placed in the patient's chart. After review of previous anaesthesic history and IV conscious sedation the patient was deemed safe to proceed with today?s procedure with IV conscious sedation as ASA class II designation. Safety time-out was performed to confirm patient ID, procedure to be performed and site of procedure. IV sedation was accomplished with a combination of 2mg of Versed was administered by the RN after DO order, titrated to patient comfort during the course of the procedure while the patient remained responsive to all verbal commands In the prone position, following sterile prep and drape of the lumbar region, the left L2, L3 and L4 anatomical location of the medial branch of the dorsal ramus was identified fluoroscopically. Subsequently an anesthetic skin wheal using 1% lidocaine solution was initiated at each of the anatomical spots. Subsequently then a 22-gauge 3.5-inch spinal needle was atraumatically introduced and advanced under fluoroscopic guidance at each of the corresponding sites at the left L2, L3 and L4 MB. After negative aspiration, 0.2 cc of Isovue 200 was injected, confirming placement without vascular or intrathecal uptake. Subsequently then 0.5cc of 2% lidocaine solution was injected at each of the corresponding sites at the left L2, L3 and L4 medial branch locations. The patient tolerated the procedure well without signs or symptoms of complications. The procedure tolerated the procedure well without signs or symptoms of complications prior to transfer to the recovery area continued monitoring without incident. Post-procedure, the patient was monitored initiating provocative activities to measure the amount of relief from block of the facetogenic pain. The patient reported a VAS of 7 prior to the procedure and a post-procedure VAS of 1. It has been a pleasure to assist in the diagnostic and therapeutic care of your patient. POST OP INSTRUCTIONS The patient was provided with a Pain Log to complete over the next several hours and subsequent days prior to the patient's follow up with the ordering physician. 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 The patient is aware, was provided, once again, with a Pain Log and will follow up with the referring physician for review and clinical correlation.
== END 2023-05-20 12:22 | disposition home or self-care (01) ==
LOC: RAD 10:29
PROVIDERS: Family Provider Student in an Organized Health Care Education/Training Program; PCP Family Medicine; Referring Provider Physical Medicine & Rehabilitation; Visit Provider Physical Medicine & Rehabilitation
DX: M47.816 Spondylosis without myelopathy or radiculopathy, lumbar region (principal)
CPT/HCPCS: 64493; 99152; J2250

== ENCOUNTER 2023-08-19 07:21 | Outpatient (CLI) | payer MEDICARE, OTHER, SELFPAY ==
[2021-10-26 14:07] VITALS: BMI 24.0
[2023-08-19] VITALS (10 sets, daily range): BP systolic 137–181; BP diastolic 72–102; PULSE 63–70; RESP 11–22; TEMP 37; O2SAT 96–100
--- NOTE | 2023-08-19 08:00 | DI.RAD.S_ITS ---
PROCEDURE: PAIN L/S MED/LAT N RFA INDICATIONS: SPONDYLOSIS COMPARISON: None. FINDINGS: Fluoroscopic spot filming was performed to verify placement of spinal needles at the left L2, L3, and L4 level(s), as labeled on the films. Appropriate location(s) of the needle tip(s) was confirmed by injection of iodinated contrast. IMPRESSION: Intraoperative fluoroscopy for lumbar medial branch RFA. Dictated by: Roxie Chaves M.D. on 08/19/2023 at 15:51 Approved by: Roxie Chaves M.D. on 08/19/2023 at 15:53
[2023-08-19] MEDS: MIDAZOLAM 2 MG/2 ML VIAL 1 MG IV ×2 (08:22→08:30)
[2023-08-19] MEDS: BUPIVACAINE 0.5% (PF) 10 ML VIAL 5 ML INJ (08:32)
--- NOTE | 2023-08-19 08:57 | P.PCN_ITS ---
Date/Time/Diagnoses Date of procedure: 08/19/23 Time of procedure: 08:58 Pre-procedure diagnosis: 1. RECALCITRANT FACET ARTHROPATHY Post-procedure diagnosis: same Procedure Notes Procedure: 1. LEFT L2, L3 AND L4 MEDIAL BRANCH RADIOFREQUENCY NEUROTOMY Indications: Ivy is referred by Dr. Phoenix for treatment of facet arthropathy. Physician: Merrill Wang Total Fluoroscopy time (seconds): 13 Total sedation minutes: 30 Complications: none Procedure in detail & Post-procedure care: DESCRIPTION OF PROCEDURE Left L2, L3 and L4 medial branch radio-frequency neurotomy The patient is well known to this clinic having undergone previous facet injections with good but temporary relief. The patient has experienced appropriate, concordant relief with previous facet and median branch blocks but the patient's pain has been recalcitrant to further conservative measures. Therefore, based upon the patient's relief and persistent symptoms, the patient is considered an appropriate candidate for facet rhizotomy. All of the patient's questions regarding the risks versus benefits of the procedure, including, but not limited to, bleeding, infection, temporary as well as lasting nerve injury, paralysis, stroke, and , as well treatment alternatives were answered to satisfaction. After obtaining informed consent, denial of pertinent drug allergies, as well as being made aware of the potential risks of bleeding, infection, spinal cord trauma, paralysis, temporary and permanent nerve damage, seizure, stroke, and possible , the patient was brought to the fluoroscopy suite and positioned prone on the fluoroscopy table. The lumbar region was prepped with Betadine and covered with a fenestrated drape in the usual sterile fashion. Appropriate monitors applied including pulse oximeter, pulse, and blood pressure for regular monitoring throughout the procedure. After review of previous anaesthesic history and IV conscious sedation the patient was deemed safe to proceed with today?s procedure with IV conscious sedation as ASA class II designation. Safety time-out was performed to confirm patient ID, procedure to be performed and site of procedure. IV sedation was accomplished with a combination of 2mg of Versed administered by the RN after DO order, titrated to patient comfort during the course of the procedure while the patient remained responsive to all verbal commands. After local infiltration using 1% lidocaine, under fluoroscopic guidance, a 10- cm RF insulated needle with a 10-mm active tip was positioned parallel to the junction of the left the superior articulating process where the L2 medial branch resides. Needle placement was confirmed with sensory stimulation at 50 Hz, with motor stimulation of .5v on the left which produced local stimulation without radicular component. The stimulation was then increased to 2v with, once again, only local multifidus stimulation without radicular component. This was then followed by two discreet lesions performed at 80 degrees Celsius for 90 seconds each. The needle was then removed and the identical procedure was performed along the length of the left L3 medial branch with motor stimulation at .7v on the left. The identical procedure was once again performed along the length of the left L4 and medial branch with motor stimulation of .5v on the right. The patient tolerated the procedure well without signs or symptoms of complications prior to transfer to the recovery area continued monitoring without incident. The patient was then transferred to the recovery area where they were observed for an appropriate period of time after the injection. The patient reported a VAS score of 9 prior to the procedure and a post-procedure VAS of 0. POST OP INSTRUCTIONS The patient was provided a Pain Log to continue to record the patient's response to the target-specific procedure prior to the patient's follow-up visit with the referring physician. Additionally, specific post-injection care instructions and a contact number to our office were provided if concerns arise regarding possible complications associated with the procedure are suspected.
== END 2023-08-19 09:10 | disposition home or self-care (01) ==
LOC: RAD 07:22
PROVIDERS: Family Provider Family Medicine; PCP Family Medicine; Referring Provider Physical Medicine & Rehabilitation; Visit Provider Physical Medicine & Rehabilitation
DX: M47.816 Spondylosis without myelopathy or radiculopathy, lumbar region (principal)
CPT/HCPCS: 64635; 64636; 99152; 99153; J2250

== ENCOUNTER → 2023-08-29 10:40 | Outpatient (CLI) | payer MEDICARE, OTHER, SELFPAY ==
[2021-10-26 14:07] VITALS: BMI 24.0
[2023-08-29 11:25] LABS: Estimated Glomerular Filt Rate > 60 mL/min (>60)
== END ==
PROVIDERS: Family Provider Family Medicine; PCP Family Medicine; Referring Provider Radiology Diagnostic Radiology; Visit Provider Radiology Diagnostic Radiology
DX: C06.9 Malignant neoplasm of mouth, unspecified (principal)
CPT/HCPCS: 36415; 82565

== ENCOUNTER → 2023-09-01 07:48 | Outpatient (CLI) | payer MEDICARE, OTHER, SELFPAY ==
[2021-10-26 14:07] VITALS: BMI 24.0
--- NOTE | 2023-09-01 | DI.CT.S_ITS ---
PROCEDURE: CT SOFT TISSUE NECK W CON INDICATIONS: H/O TONGUE CANCER TECHNIQUE: After the administration of intravenous contrast, 3.0 mm axial sections acquired from the sella to the aortic arch. Additional oblique axial 3.0 mm sections acquired through the pharynx. 3 mm thick coronal and sagittal reformats were generated. For radiation dose reduction, the following was used: automated exposure control. COMPARISON: [facility], CT, CT SOFT TISSUE NECK W CON, 02/21/2023, 8:14. FINDINGS: Image quality: Excellent. Lymph nodes: No enlarged lymph nodes seen throughout the neck. Vessels: Visualized vasculature appears patent. Neck spaces: The oropharynx, nasopharynx, and pharynx demonstrate no mucosal lesions. The vocal cords, false vocal cords, pyriform sinuses, epiglottis, vallecula, and tongue base all appear normal. Extramucosal spaces appear unremarkable. Glands: The parotid and submandibular glands appear normal. Thyroid gland is unremarkable.. Miscellaneous: Visualized brain and orbits appear normal. Lens replacements. Lung apices appear clear. Superficial soft tissues appear normal. Bones: Postsurgical changes from partial right mandibulectomy. Again seen small focus of soft tissue density within the subcutaneous fat adjacent to the resection cavity (2/) measuring 7 x 7 mm, not significantly changed compared to prior. No suspicious bony lesions. Degenerative changes of the cervical spine. Worsening left maxillary sinus disease. IMPRESSION: Stable postsurgical changes without evidence of residual or recurrent disease. No enlarged cervical lymph nodes. Dictated by: Ishan Norton M.D. on 09/01/2023 at 12:38 Approved by: Ishan Norton M.D. on 09/01/2023 at 12:43
== END ==
PROVIDERS: Family Provider Family Medicine; PCP Family Medicine; Referring Provider Registered Nurse; Visit Provider Registered Nurse
DX: Z85.810 Personal history of malignant neoplasm of tongue (principal); Z08 Encounter for follow-up examination after completed treatment for malignant neoplasm
CPT/HCPCS: 70491; Q9967

== ENCOUNTER 2023-09-16 07:30 | Outpatient (CLI) | payer MEDICARE, OTHER, SELFPAY ==
[2021-10-26 14:07] VITALS: BMI 24.0
[2023-09-16] VITALS (11 sets, daily range): BP systolic 108–144; BP diastolic 56–76; PULSE 64–70; RESP 13–22; TEMP 36.3; O2SAT 97–100
--- NOTE | 2023-09-16 08:19 | PC.NURSE ---
Patient reports that she has had dental work with some swelling. They prescribed her Cipro BID x10 days. She will complete her last doses today. Denies any fever, chills, night sweats and any drainage. Patient also takes Warfarin 5mg daily had an INR check yesterday with results of 3.5, held last nights dose. made aware.
[2023-09-16] MEDS: MIDAZOLAM 2 MG/2 ML VIAL IV (08:39)
--- NOTE | 2023-09-16 08:45 | DI.RAD.S_ITS ---
PROCEDURE: PAIN L/S TRANSFORAMINAL INJECT INDICATIONS: lumbar radiculopathy COMPARISON: [facility], , PAIN L/S TRANSFORAMINAL INJECT, 10/15/2022, 9:09. FINDINGS: Fluoroscopic spot filming was performed to verify placement of spinal needles at the left L5-S1 level(s), as labeled on the films. Appropriate location(s) of the needle tip(s) was confirmed by injection of iodinated contrast. I was at bowel no and more anteriorly IMPRESSION: Fluoroscopic support for L5-S1 transforaminal epidural steroid injection. Please see separate procedure note for further details. Dictated by: Mahin Wellington M.D. on 09/16/2023 at 11:08 Approved by: Mahin Wellington M.D. on 09/16/2023 at 11:09
[2023-09-16] MEDS: MIDAZOLAM 2 MG/2 ML VIAL 1 MG IV (08:55)
[2023-09-16] MEDS: BUPIVACAINE 0.25% (PF) VIAL 2 ML INJ (08:57)
[2023-09-16] MEDS: iopamidoL 15 ML VIAL 3 ML INJ (08:57)
[2023-09-16] MEDS: BETAMETHASONE 30 MG/5 ML MDV 6 MG INJ (08:57)
[2023-09-16] MEDS: DEXAMETHASONE 10 MG/ML VIAL INJ (08:58)
--- NOTE | 2023-09-16 09:07 | P.PCN_ITS ---
Date/Time/Diagnoses Date of procedure: 09/16/23 Time of procedure: 09:07 Pre-procedure diagnosis: 1. FORAMINAL STENOSIS WITH LE SYMPTOMS Post-procedure diagnosis: same Procedure Notes Procedure: 1. FLUOROSCOPICALLY GUIDED CONTRAST CONTROLLED TRANSFORAMINAL EPIDURAL STEROID INJECTION - Left L5/S1 Indications: Porsche Valente is referred by Dr. Zacarias for treatment of Foraminal Stenosis with Left LE Symptoms Physician: Merrill Wang Total Fluoroscopy time (seconds): 13 Total sedation minutes: 26 Complications: none Procedure in detail & Post-procedure care: FINDINGS Foraminal Nerve Root Compression secondary to disc disease and facet hypertrophy DESCRIPTION OF PROCEDURE Following review of allergy and review of potential side effects and complications, including, but not necessarily limited to, infection, allergic reaction, local tissue breakdown, stroke, temporary or permanent nerve injury, paralysis, and possible , the patient indicated that the patient understood and agreed to proceed. An informed consent document was signed by the patient, witnessed by a nurse, and placed in the patient's chart. Additionally, other treatment options including medications, modalities, and physical therapy were reviewed with the patient. After review of previous anaesthesic history and IV conscious sedation the patient was deemed safe to proceed with today?s procedure with IV conscious sedation as ASA class II designation. Safety time-out was performed to confirm patient ID, procedure to be performed and site of procedure. IV sedation was accomplished with a combination of 3mg of Versed was administered by the RN after DO order, titrated to patient comfort during the course of the procedure while the patient remained responsive to all verbal commands In the prone position following sterile prep and drape of the lumbar region, the Left L5/S1 posterior neuroforamen was identified fluoroscopically. The skin was anesthetized via a 25-gauge 1.5-inch needle with 1% lidocaine solution. At this point, a 25-gauge 3.5-inch spinal needle was atraumatically introduced and advanced under fluoroscopic guidance through the posterior Left L5/S1 neuroforamen to approximately the anterior aspect of the canal. Depth was confirmed on lateral view. Following negative aspiration, injection of approximately 1.5 cc of Isovue 200 under live fluoroscopy in the AP view co nfirmed excellent flow along the nerve root, into the epidural space without vascular or intrathecal uptake observed Radiological data, including multiple fluoroscopic views of the lumbosacral spin e, reveal a spinal needle at the Left L5/S1 posterior neuroforamen. Subsequent views show flow of contrast material flowing superiorly and inferiorly along the nerve root confirming epidural flow. Subsequently, a test dose of 1.5 cc of 1% lidocaine solution was administered and patient was observed for two minutes for signs or symptoms of complications, including abdominal pain, shortness of breath, bilateral upper or lower extremity weakness, nausea and vomiting, prior to steroid injection. At this point, a total of 2cc or 10mg of dexamethasone and 6mg of betamethasone was injected without incident. The procedure tolerated the procedure well without signs or symptoms of complications prior to transfer to the recovery area continued monitoring without incident. The patient was then transferred to the recovery area where they were observed for an appropriate time after the injection. The patient reported a VAS score of 7 prior to the procedure and a post-procedure VAS of 0. POST OP INSTRUCTIONS The patient was provided a Pain Log to continue to record their response to the target-specific procedure prior to follow-up visit with their referring physician. Additionally, specific post-injection care instructions and a contact number to our office were provided if concerns arise regarding possible complications associated with the procedure are suspected.
--- NOTE | 2023-09-16 09:55 | PC.NURSE ---
Patient returned from procedure with unsteady gait (more so than baseline). Up with 2 person SBA to test out legs at 0925 and she still is not steady enough for discharge. Held longer to monitor. 0950 patient able to stand and walk at baseline mobility status. Dr. Wang at chairside and aware. Patient reports feeling safe for discharge.
== END 2023-09-16 09:55 | disposition home or self-care (01) ==
PROVIDERS: Family Provider Family Medicine; PCP Family Medicine; Referring Provider Physical Medicine & Rehabilitation; Visit Provider Physical Medicine & Rehabilitation
DX: M48.07 Spinal stenosis, lumbosacral region (principal); M51.17 Intervertebral disc disorders with radiculopathy, lumbosacral region; M47.27 Other spondylosis with radiculopathy, lumbosacral region
CPT/HCPCS: 64483; 99152; 99153; J0702; J1100; J2250; J3490

== ENCOUNTER → 2023-09-22 09:37 | Outpatient (CLI) | payer MEDICARE, OTHER, SELFPAY ==
[2021-10-26 14:07] VITALS: BMI 24.0
--- NOTE | 2023-09-22 09:38 | DI.RAD.S_ITS ---
PROCEDURE: FL BARIUM SWALLOW W SPEECH INDICATIONS: Dysphagia, oropharyngeal phase COMPARISON: TECHNIQUE: Examination was conducted in conjunction with speech pathology per standard protocol. In the lateral projection, filming was performed of the patient swallowing. AP projection filming may also be performed with patient swallowing. COMPARISON: [facility], CT, CT SOFT TISSUE NECK W CON, 09/01/2023, 8:04. [facility], XA, PAIN L/S TRANSFORAMINAL INJECT, 09/16/2023, 8:51. FINDINGS: Function: The oral preparatory phase appears normal, with proper containment. The subsequent oral propulsive phase, pharyngeal phase, and esophageal phase of swallowing also appear normal with all proffered substances. Equivocal laryngotracheal penetration. No aspiration. No pathologic vallecular pooling. Morphology: No cricopharyngeal bar is identified. No cervical esophageal webs. No Zenker's diverticulum. No strictures. There is a large hiatal hernia. IMPRESSION: 1. No laryngeal tracheal aspiration. Please see separate speech pathologists report for detail. 2. Large hiatal hernia. Dictated by: Christiano Mcnamara M.D. on 09/22/2023 at 12:46 Approved by: Christiano Mcnamara M.D. on 09/22/2023 at 12:48
--- NOTE | 2023-09-22 12:47 | ST.SWALLOW ---
Visit Care Team Role Provider Type Clair Zacarias DO Family Provider Physician Primary Care Provider Specialty: Family Practice Address: [address] [place] [address], [address], [address] Email: [email or web address] Anthony Frederick MD, DMD Attending Provider Non-Staff Referring Provider Specialty: Otolaryngology (ENT) Address: [facility], [address], [place], [address] Fax: Email: ST Modified Barium Swallow Study [employer]UTTLE [employer] Modified Barium Swallow Study Start: 09/22/23 11:20 Freq: Status: Active Protocol: Document 09/22/23 11:21 LNK (Rec: 09/22/23 12:47 [id number]) Modified Barium Swallow Study Total Time Visit Start Time 10:00 Visit Stop Time 10:45 Total Visit Minutes 45 Referral Referring Physician Clair Zacarias DO Setting Setting Outpatient Care Patient Information Identification Type Name,Date of Patient History Pt is an 78 year old woman seen for MBSS secondary to her PMH of oral cancer. 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 During the January 2022 surgery she had her right lower teeth removed. She states she is planning on having the rest of her bottom teeth removed in the next month or so d/t her teeth feeling they want to fall out and possibility the cancer has returned. In May 2023 she had right partial glossectomy d/t oral lesions and concern for carinoma and discovery of new mass. She also has hx of lichen planus of the oral cavity. Pt reports swallowing difficulties and a hx of reflux and takes omeprazole daily. Pt noted a large hiatal hernia diagnosed years ago. pt is currently receiving voice and swallow therapy. She reports she is doing swallow exercises as directed by her speech therapist. Subjective Observations Pt is a pleasant lady who was seated in the fluoroscopy chair. Directions and procedures were described for her, after which she indicated she understood and agreed to proceed. Patient Positioning Position View Lat-A/P Imaging Lateral View Textures Administered Trials Presented Thin Liquid via Spoon (IDDSI 0 ),Thin Liquid via Cup (IDDSI 0 ),Mildly Thick Liquid via Cup (IDDSI 2),Extremely Thick Liquid via Spoon (IDDSI 4), Regular (IDDSI 7) Barium Tablet Yes The IDDSI Framework Protocol: IDDSI.1 Oral Impairment Source: The Modified Barium Swallow Impairment Profile (MBSImP??) Lip Closure Escape progressing to mid-chin Tongue Control During Bolus Hold Posterior escape of less than half of bolus Bolus Preparation/Mastication Slow prolonged chewing/mashing with complete re-collection Bolus Transport/Lingual Motion Slowed tongue motion Oral Residue Trace residue lining oral structures Location Tongue,Lateral sulci Initiation of Pharyngeal Swallow Bolus head at pyriforms Additional Oral Impairment Observations OME noted natural upper teeth with 3 teeth on her lower left side (cuspid and 2 bicuspids. The right side of pt's tongue is missing. Pt reports right side numbness of her lower lip and tongue. Oral weakness and reduced ROM on right side. Lingual ROM reduced with minimal movement to left beyond midline. Velar structures appeared to be symmetrical and WFL. Slight right facial droop at rest; symmetrical smile noted. Mastication of half of a cookie was prolonged, given the pt's lack of dentition and lingual challenges. An easy to chew (IDDSI 7) or soft and bite-sized (IDDSI 6) diet textures are recommended. DKS was observed to be WNL. Pharyngeal Impairment Source: The Modified Barium Swallow Impairment Profile (MBSImP??) Soft Palate Elevation No bolus between soft palate & pharyngeal wall Laryngeal Elevation Part.sup.move.thyroid cart/ part.approx.arytenoids to epiglot.petiole Anterior Hyoid Excursion Partial anterior movement Epiglottic Movement Complete inversion Laryngeal Vestibular Closure Incomplete; narrow column air/ contrast in laryngeal vestibule Pharyngeal Stripping Wave Absent Pharyngoesophageal Segment Opening Partial distention/partial duration; partial obstruction of flow Tongue Base Retraction Wide column of contrast/air betwn tongue base & post. pharyngeal wall Pharyngeal Residue Collection of residue within/ on pharyngeal structures Location Diffuse (>3 areas) Additional Pharyngeal Impairment Base of tongue and overall Observations pharyngeal weakness was noted. Hyolaryngeal elevation and movement were reduced as well. Epiglottis was observed to fully invert. Flash penetration (PAS1) into the laryngeal vestibule was observed x2, which is considered to be typical for older patients. No tracheal aspiration was observed. Pt's reflexive cough was observed to be strong and protective. Residual contrast within the pharynx did trigger a reflexive cough x3. When provided with a water wash, the residual was cleared to the esophagus. A/P View Textures Administered Trials Presented Thin Liquid via Cup (IDDSI 0) The IDDSI Framework Protocol: IDDSI.1 A/P View Observations Pharyngeal Contraction Complete Esophageal Clearance Upright Position Esophageal retention w/ regtrograde flow below pharyngoesoph segment Esophageal Function Slowed Clearing,Reverse Peristalsis Additional A-P Observations Retroflow of contrast observed with narrowing near the GE junction. Hiatal henia noted. Barium tablet cleared esophagus within a timely manner. Clinical Impressions Dysphagia Type Oral Findings During initial swallows, the pt was tilting her head back to help the food go back. In the tilted position, premature spillage to the pyriforms was noted prior to tongue movement initiation. Head position was change to a neutral, chin parallel to the floor, position. In the neutral position, the pt demonstrated better oral retention of the bolus without premature spillage. Pt was successful in swallowing without the need to tilt head backwards. Pt was instructed that the neutral head position was safer. In that position, the foods/liquids would not tend to flow toward the surgically removed right side of her tongue. Overall, the pt's swallowing was WFL. Pt was counseled about reducing talking and other distractions during meals. 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 Rehabilitation Potential Excellent Patient Appropriate for Therapy Yes: Continue with current swallow therapy POC Recommendations Diet Liquids Order Thin (IDDSI 0) Diet Order Easy to Chew (IDDSI 7) Medication Recommendation As Tolerated,Whole in Carrier, Crushed in Carrier Aspiration Precautions Recommended Precautions Upright at 90 Degrees, Alternate Liquids/Solids,Small Bites/Sips Additional Precautions During meal, reduce talking/ increase mindful swallow; reduce distractions Treatment Plan Additional Recommended Referrals Pt should remember to keep chin parallel to the floor when eating Therapy Strategy Recommendations Sitting Upright (90 deg),Check for Pocket,Small Bites and Sips,Alternate Liquids/Solids
== END ==
PROVIDERS: Family Provider Family Medicine; PCP Family Medicine; Referring Provider Otolaryngology Plastic Surgery within the Head & Neck; Visit Provider Otolaryngology Plastic Surgery within the Head & Neck
DX: C06.9 Malignant neoplasm of mouth, unspecified (principal); R13.12 Dysphagia, oropharyngeal phase; K44.9 Diaphragmatic hernia without obstruction or gangrene
CPT/HCPCS: 74230; 92611

== ENCOUNTER → 2023-10-16 09:10 | Outpatient (CLI) | payer MEDICARE, OTHER, SELFPAY ==
[2021-10-26 14:07] VITALS: BMI 24.0
--- NOTE | 2023-10-16 09:12 | DI.RAD.S_ITS ---
PROCEDURE: XR KNEE RT 3V INDICATIONS: RIGHT KNEE PAIN TECHNIQUE: 3 views of the knee were acquired. COMPARISON: [facility], CR, XR KNEE LT 3V, 09/18/2022, 13:44. FINDINGS: Bones: There is mild femorotibial compartment narrowing, small intercondylar osteophytes and small tricompartmental osteophytes. There is lateral subluxation of the right patella with severe patellofemoral joint space narrowing. Soft tissues: No joint effusion. Trace chondrocalcinosis is noted in the lateral femorotibial compartment. IMPRESSION: Moderate to severe osteoarthritis of the right knee. Dictated by: Leti Palomo M.D. on 10/16/2023 at 10:40 Approved by: Leti Palomo M.D. on 10/16/2023 at 10:56
== END ==
LOC: RAD 09:11
PROVIDERS: Family Provider Family Medicine; PCP Family Medicine; Referring Provider Physical Medicine & Rehabilitation; Visit Provider Physical Medicine & Rehabilitation
DX: M17.11 Unilateral primary osteoarthritis, right knee (principal); M25.561 Pain in right knee
CPT/HCPCS: 73562

== ENCOUNTER 2023-12-15 09:22 | Emergency (ER) | payer MEDICARE, OTHER, SELFPAY ==
[2021-10-26 14:07] VITALS: BMI 24.0
[2023-12-15] VITALS (14 sets, daily range): BP systolic 110–151; BP diastolic 57–70; PULSE 64–77; RESP 12–39; TEMP 36.9–37; O2SAT 83–100; BMI 20.6
--- NOTE | 2023-12-15 09:35 | DI.RAD.S_ITS ---
PROCEDURE: XR CHEST 1V INDICATIONS: chest pain TECHNIQUE: One view of the chest was acquired. COMPARISON: [facility], , CHEST 2 VIEW, 02/28/2011, 8:08. FINDINGS: Surgical changes and devices: None. Lungs and pleura: Lungs are clear. No pleural effusions or pneumothorax. Mediastinum: Mediastinal contours appear normal. Heart size is normal. There is likely a large hiatal hernia which is partially gas-filled. Bones and chest wall: No suspicious bony lesions. Overlying soft tissues appear unremarkable. IMPRESSION: No acute cardiopulmonary abnormality is seen. Probable large hiatal hernia which is incompletely characterized on single frontal view. Dictated by: Leti Palomo M.D. on 12/15/2023 at 10:20 Approved by: Leti Palomo M.D. on 12/15/2023 at 10:20
--- NOTE | 2023-12-15 09:38 | EKG_ITS ---
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
[2023-12-15 09:43] LABS: Add Manual Diff / Slide Review NO; Basophils Absolute Auto 0 /uL (0-100); Eosinophils Absolute Auto 200 /uL (0-450); Eosinophils Percent Auto 3.6 % (2-4); Hematocrit 37.8 % (36-46); Hemoglobin 12.3 g/dL (12.0-16.0); Lymphocytes Absolute Auto 1300 /uL (1100-4500); Lymphocytes Percent Auto 27.6 % (25-40); Mean Corpuscular HGB Conc 32.6 % (30-36); Mean Corpuscular Hemoglobin 29.6 PG (26-34); Mean Corpuscular Volume 90.7 fL (80-100); Monocytes Absolute Auto 600 /uL (0-900); Monocytes Percent Auto 12.7 % (3-14); Neutrophils Absolute Auto 2500 /uL (1500-7000); Neutrophils Percent Auto 55.1 % (50-75); Platelet Count 187 X10^3/uL (150-400); Red Blood Cell Count 4.16 X10^6/uL (4.0-5.2); Red Cell Distribution Width 14.7 % (11.6-14.8); White Blood Cell Count 4.6 X10^3/uL (4.5-11.0)
[2023-12-15 09:57] LABS: INR 2.6 (0.9-1.3); Prothrombin Time 29.7 SECONDS (9.4-12.5)
--- NOTE | 2023-12-15 09:59 | ED.ARRPALP ---
HPI - Arrhythmia/Palpitations General Chief Complaint: Arrhythmia/Palpitations Stated Complaint: low heart rate Time Seen by Provider: 12/15/23 09:37 Source: patient Mode of arrival: Ambulatory History of Present Illness HPI narrative: Patient has history of atrial fibrillation on warfarin. History of pulmonary embolism over a decade ago during extensive hospitalization secondary to sepsis. Patient here with . Patient sees Dr. Salas stanford [facility] for atrial fibrillation on warfarin. History of CHF during sepsis episode but currently no CHF. Denies any weight gain recently. Patient complains of slow heart rate down in the 50s which is unusual for her. She did have carvedilol changes 2 months ago with Cardiology, she is currently taking 6.25 mg in the morning and 12.5 mg at night. Patient has felt short of breath with exertion. She does notice her heart rate at times low after exertion/walking. Denies denies any palpitations or chest pain or any dizziness. Last echocardiogram on record is in September 2020. Results below. Denies any black or bloody stools. No recent illness. [address] [address] Echocardiography Report Signed Patient: Porsche Branham MR#: [id number] : 1945 Acct:[id number] Age/Sex: 75 / F Date of Service: 10/26/20 Loc: ECHO Accession Number: [id number] Procedure: EC echo doppler complete Ordering Provider: Mariya Tran MD [place] +---------+ [facility] +---------+ : : [address] [place] [address]. : : : : [place], [place] : : : : [id number] : : : : Phone: [phone] Echocardiogram Report + + :Name: PORSCHE BRANHAM Study Date: 10/26/2020 Height: 64 in : :[facility] ReadingLocation: Weight: 146 lb : : Gender: Female BSA: 1.7 m2 : :: 1945 Age: 75 yrs BP: 143/80 mmHg: :Reason For Study: Edema : :Ordering Physician: ELISEO : :MARIYA Performed By: Papa Roberson : :Referring: MARIYA TRAN : + + Interpretation Summary The ejection fraction is estimated to be 55-60%. There is mild mitral regurgitation. There is trace aortic regurgitation. There is mild tricuspid regurgitation. The right ventricular systolic pressure is estimated to be at least 38 mmHg based on an estimated right atrial pressure of 3 mm Hg. Procedure: A two-dimensional transthoracic echocardiogram with color flow and Doppler was performed. The study quality was technically adequate. There is no prior echocardiogram noted for this patient. Left Ventricle: The left ventricle is normal in size and wall thickness. Left ventricular systolic function is normal. The ejection fraction is estimated to be 55-60%. There are no focal wall motion abnormalities. Diastolic parameters suggest a pseudonormalization pattern, consistent with probable elevated filling pressures. Right Ventricle: The right ventricle is normal in size and function. Atria: Both atria are normal in size. There is no Doppler evidence for an interatrial shunt. Mitral Valve: The mitral valve leaflets appear mildly thickened, but open well. There is mild mitral regurgitation. Aortic Valve: The aortic valve is normal in structure and function. There is trace aortic regurgitation. Tricuspid Valve: The tricuspid valve is normal in structure and function. There is mild tricuspid regurgitation. The right ventricular systolic pressure is estimated to be at least 38 mmHg based on an estimated right atrial pressure of 3 mm Hg. Pulmonic Valve: The pulmonic valve is not well seen, but is grossly normal. There is mild pulmonic regurgitation. Great Vessels: The aortic root is normal size. The dimensions of the ascending aorta are normal. The IVC is of normal diameter and collapses greater than 50% with a sniff. This suggests a low right atrial pressure of 3 mm Hg. Pericardium/ Pleura There is no pericardial effusion. There is no pleural effusion. MMode/2D Measurements & Calculations LVIDd: 4.7 cm LVOT diam: 1.8 cm LVIDs: 3.2 cm Ao root diam: 2.7 cm FS: 31.7 % asc Aorta Diam: 3.1 cm IVSd: 0.83 cm LVPWd: 0.68 cm LV crane. diameter/BSA (cm/m^2): 2.7 LV sys. diameter/BSA (cm/m^2): 1.9 LA A2 area: 14.8 cm2 RA area: 9.7 cm2 LA A4 area: 21.3 cm2 IVC diam: 2.1 cm LA length (vol): 5.0 cm LA vol: 54.1 ml LA vol index: 31.6 ml/m2 RVD1 (basal): 3.1 cm TAPSE: 1.8 cm Doppler Measurements & Calculations Ao V2 max: 120.7 cm/sec LVOT Max Toan: 91.6 cm/sec Ao V2 mean: 83.9 cm/sec LV V1 max P.4 mmHg Ao max P.8 mmHg LV V1 VTI: 21.2 cm Ao mean P.1 mmHg ADAL(I,D): 2.0 cm2 Ao V2 VTI: 27.3 cm ADAL(V,D): 1.9 cm2 sev ratio: 0.78 ADAL indexed to BSA (cm^2/m^2): 1.1 MV E max toan: 99.9 cm/sec TR max toan: 295.5 cm/sec MV A max toan: 90.7 cm/sec TR max P.9 mmHg MV E/A: 1.1 PA V2 max: 85.4 cm/sec Med Peak E' Toan: 5.5 cm/sec PA V2 mean: 67.9 cm/sec E/E' med: 18.2 PA mean P.0 mmHg Lat Peak E' Toan: 7.3 cm/sec PA pr(Accel): 29.2 mmHg E/E' lat: 13.7 E/e' average: 16.0 MV dec time: 0.19 sec SV(LVOT): 53.3 ml Reading Physician:04:30 PM Related Data Home Medications Medication Instructions Recorded Confirmed cholecalciferol (vitamin D3) 50 2,000 unit PO DAILY 01/11/19 12/03/23 mcg (2,000 unit) capsule multivitamin 1 tab PO DAILY 01/11/19 12/03/23 lutein 25 mg-zeaxanthin 5 mg 25 cap PO DAILY 05/04/19 12/03/23 capsule (Ocuvite Lutein) nitroglycerin 0.4 mg sublingual 0.4 mg sublingual PRN PRN Chest 08/31/19 12/03/23 tablet Pain mecobalamin (vitamin B12) PO 03/31/20 12/03/23 ascorbic acid (vitamin C) PO DAILY 03/14/21 12/03/23 clobetasol 0.05 % topical ointment 1 applic topical BID 07/23/23 12/03/23 losartan 100 mg tablet 100 mg PO DAILY 07/23/23 12/03/23 amlodipine 2.5 mg tablet 2.5 mg PO DAILY 10/17/23 12/03/23 carvedilol 12.5 mg tablet 12.5 mg PO .NIGHT 12/03/23 12/03/23 carvedilol 6.25 mg tablet 6.25 mg PO DAILY 12/03/23 12/03/23 fluconazole 100 mg tablet 100 mg PO DAILY 12/03/23 12/03/23 Previous Rx's Medication Instructions Recorded diclofenac sodium 1 % topical gel 2 g topical QID PRN pain #100 grams 05/20/22 levothyroxine 50 mcg tablet See Rx Instructions .Route 05/22/22 .COMPLEX #90 tabs methocarbamol 500 mg tablet 500 mg PO BID PRN for muscle spasm 06/02/23 #180 tabs omeprazole 20 mg capsule,delayed 20 mg PO DAILY #90 caps 08/06/23 release clobetasol 0.05 % topical cream 1 applic topical DAILY #60 grams 10/19/23 warfarin 5 mg tablet 5 mg PO DAILY #90 tabs 10/27/23 Allergies Allergy/AdvReac Type Severity Reaction Status Date / Time ampicillin Allergy Intermediate Rash Verified 12/15/23 09:37 Penicillins Allergy Intermediate Was told Verified 12/15/23 09:37 not to take due to Ampicillin reaction adhesive tape AdvReac Mild Blister/Skin Verified 12/15/23 09:37 came off. erythromycin base AdvReac Vomiting Verified 12/15/23 09:37 [From Erythrocin] within 10 min of taking oxycodone AdvReac twitching Verified 12/15/23 09:37 Review of Systems Review of Systems Narrative: GENERAL: negative chills, fatigue, malaise, fever, sweats. HEENT: negative sinus pain, ear pain, sore throat RESPIRATORY: Positive dyspnea, negative cough CARDIOVASCULAR: negative chest pain, positive palpitations GASTROINTESTINAL: negative nausea, vomiting, abdominal pain : negative dysuria, frequency, hematuria MUSCULOSKELETAL: negative muscle or bony pain SKIN: negative rash, skin lesions NEUROLOGIC: negative weakness, numbness ROS Unobtainable: All systems reviewed & are unremarkable except as noted in HPI and below Patient History Medical History (Updated 12/15/23 @ 13:40 by Ha Roberto MD) Lumbosacral radiculopathy at L4 Vitamin D deficiency Left knee DJD Facet arthropathy, lumbar Raynaud phenomenon Foraminal stenosis of lumbar region Lichen planus Osteoporosis Tenosynovitis of finger Spondylisthesis Vision disorder Rheumatoid arthritis Allergies (~1999) TGA (transient global amnesia) (~2014) Headache Scoliosis (~1954) Rib fractures Pertussis (~1954) Rubella (~1949) Mumps Measles (~1949) Chicken pox (~1949) Hearing loss (~2008) Infertility (~1966) GERD (gastroesophageal reflux disease) (~2004) Diverticular disease (~2010) Colon polyps (~2016) Heart stopped beating (~2010) Heart failure (~2010) Deep vein thrombosis (~2010) History of pulmonary embolism (~2010) Paroxysmal A-fib (~2010) Essential hypertension (~2004) Hypothyroid Surgical History Anesthesia History of dilation and curettage History of tubal ligation History of surgery (~1966) Strabismus History of tonsillectomy and adenoidectomy Cataracts, bilateral (~2013) History of kidney surgery (~2010) History of colectomy (~2010) S/P exploratory laparotomy S/P devora (~1992) S/P partial colectomy (~2010) Family History Father Stroke Loud snoring Mother Alcohol abuse Brother Hypertension Sister Back problem Grandfather Cancer Grandmother Diabetes mellitus Grandfather Stroke Grandmother Stroke Social History household members: spouse Smoking Status: Never smoker Smoking Status: Never smoker Alcohol type: other Substance Use Type: does not use Exam Narrative Exam Narrative: GENERAL: in no distress, not toxic not dyspneic HEAD: Normocephalic. EYES: Pupils equal round ENT: Mucous membranes moist. NECK: Trachea midline. CARDIOVASCULAR: Regular rate and rhythm, no bradycardia no tachycardia RESPIRATORY: Clear to auscultation. Breath sounds equal bilaterally. No wheezes, rales, or rhonchi. GASTROINTESTINAL: Abdomen soft, non-tender EXTREMITIES: No gross deformities. No ankle or pedal edema no leg edema BACK: No flank tenderness. NEURO: AOx4. SKIN: Warm and dry PSYCH: Not anxious, is cooperative Initial Vital Signs Initial Vital Signs: Vital Signs Pulse Rate 76 12/15/23 09:33 Respiratory Rate 19 12/15/23 09:33 Blood Pressure 151/67 H 12/15/23 09:33 Pulse Oximetry 100 12/15/23 09:33 Course Orders Ordered: Discontinued Medications Aspirin (Aspirin 81 Mg Chew Tab) 324 mg PO NOW ONE Stop: 12/15/23 09:35 Last Admin: 12/15/23 10:04 Dose: Not Given Documented By: JONATHAN Sodium Chloride (Normal Saline 0.9%) 500 mls @ 1,000 mls/hr IV BOLUS ONE Stop: 12/15/23 11:51 Last Infusion: 12/15/23 12:07 Dose: Infused Documented By: Admin: 12/15/23 11:27 Dose: 1,000 mls/hr Documented By: MACK Vital Signs Vital signs: Vital Signs - 8 hr 12/15/23 09:33 12/15/23 09:33 12/15/23 09:35 Temperature 98.4 F Pulse Rate 76 77 Respiratory Rate 19 13 Blood Pressure 151/67 H 151/67 H Pulse Oximetry 100 99 Oxygen Delivery Method Room Air 12/15/23 10:00 12/15/23 10:30 12/15/23 10:31 Temperature Pulse Rate 73 67 65 Respiratory Rate 39 H 18 16 Blood Pressure Pulse Oximetry 98 99 100 Oxygen Delivery Method 12/15/23 10:31 12/15/23 11:00 12/15/23 11:01 Temperature Pulse Rate 64 64 Respiratory Rate 17 15 Blood Pressure 116/57 L Pulse Oximetry 98 99 Oxygen Delivery Method 12/15/23 11:01 12/15/23 11:30 12/15/23 11:31 Temperature Pulse Rate 67 66 Respiratory Rate 24 29 H Blood Pressure 110/58 L Pulse Oximetry 83 L 99 Oxygen Delivery Method 12/15/23 11:31 12/15/23 11:48 12/15/23 11:48 Temperature Pulse Rate 68 Respiratory Rate 17 Blood Pressure 120/58 L 136/63 Pulse Oximetry Oxygen Delivery Method 12/15/23 12:00 12/15/23 12:00 Temperature Pulse Rate 64 Respiratory Rate 12 Blood Pressure 132/67 Pulse Oximetry Oxygen Delivery Method MDM - Arrhythmia/Palpitations Lab Data 12/15/23 09:35 12/15/23 09:35 Labs: Lab Results 12/15/23 Range/Units 09:35 WBC 4.6 (4.5-11.0) X10^3/uL RBC 4.16 (4.0-5.2) X10^6/uL Hgb 12.3 (12.0-16.0) g/dL Hct 37.8 (36-46) % MCV 90.7 (80-100) fL MCH 29.6 (26-34) PG MCHC 32.6 (30-36) % RDW 14.7 (11.6-14.8) % Plt Count 187 (150-400) X10^3/uL Neut % (Auto) 55.1 (50-75) % Lymph % (Auto) 27.6 (25-40) % [place] % (Auto) 12.7 (3-14) % Eos % (Auto) 3.6 (2-4) % Baso % (Auto) 1.0 (0-2) % Neut # (Auto) 2500 (0392-1385) /uL Lymph # (Auto) 1300 (8884-2704) /uL [place] # (Auto) 600 (0-900) /uL Eos # (Auto) 200 (0-450) /uL Baso # (Auto) 0 (0-100) /uL PT 29.7 H (9.4-12.5) SECONDS INR 2.6 H (0.9-1.3) APTT 53 H (25.1-36.5) SECONDS D-Dimer 764 H (<500) ng/ml Sodium 138 (137-145) mmol/L Potassium 4.0 (3.4-5.1) mmol/L Chloride 104 (98-107) mmol/L Carbon Dioxide 31 (22-32) mmol/L BUN 19 H (7-17) mg/dL Creatinine 0.79 (0.52-1.04) mg/dL Estimated GFR > 60 (>60) mL/min BUN/Creatinine Ratio 24.1 H (6-22) Glucose 64 L (80-110) mg/dL Calcium 9.0 (8.4-10.2) mg/dL Magnesium 1.9 (1.6-2.3) mg/dL Total Bilirubin 0.6 (0.2-1.3) mg/dL AST 39 H (14-36) IU/L ALT 26 (<35) IU/L Alkaline Phosphatase 72 (38-126) U/L Total Creatine Kinase 74 (30-135) U/L Troponin I < 0.012 (0.01-0.034) ng/mL NT-Pro-B Natriuret Pep 1020 H (<450) pg/mL Total Protein 7.6 (6.3-8.2) g/dL Albumin 4.4 (3.5-5.0) g/dL Globulin 3.2 (1.7-4.1) g/dL Albumin/Globulin Ratio 1.4 (1.0-2.8) Lipase 63 (23-300) U/L TSH 2.31 (0.47-4.68) uIU/mL Imaging Data CT scan - chest: Radiologist's Impresson: [place] [address] CT Scan Report Signed Patient: Porsche Branham MR#: [id number] : 1945 Acct:[id number] Age/Sex: 78 / F Date of Service: 12/15/23 Loc: ED Accession Number: [id number] Procedure: CT angio chest PE protocol Ordering Provider: Ha Roberto MD PROCEDURE: CT ANGIO CHEST PE PROTOCOL INDICATIONS: Dyspnea TECHNIQUE: After the administration of intravenous contrast, 2 mm thick sections acquired from the pulmonary apices to the posterior costophrenic angles. 3-dimensional maximum intensity projection (MIP) coronal and sagittal reformats were then acquired through the thorax. For radiation dose reduction, the following was used: automated exposure control, adjustment of mA and/or kV according to patient size. COMPARISON: None. FINDINGS: Image quality: Diagnostic. Pulmonary arteries: Pulmonary arteries are normal in size, and demonstrate no intraluminal filling defects to suggest central pulmonary embolism. Lower Neck: No enlarged lymph nodes. Thyroid: No thyroid nodules which require sonographic follow up, per consensus guidelines. Axillae: No enlarged lymph nodes. Chest Wall: Unremarkable. Bones: Increased thoracic kyphosis.. Lungs and Pleura: No pneumothorax or pleural effusions. No consolidation or suspicious nodules. Heart: Heart size is normal. No pericardial effusion. Thoracic Vessels: No aortic aneurysm. Mediastinum and Hayley: No enlarged lymph nodes. Esophagus: No wall thickening. Moderate hiatal hernia. Upper Abdomen: Gallbladder is surgically absent. IMPRESSION: No pulmonary embolus. No acute cardiopulmonary process. Moderate hiatal hernia. Increased thoracic kyphosis. Dictated by: Anup Alba M.D. on 12/15/2023 at 13:02 Approved by: Anup Alba M.D. on 12/15/2023 at 13:13 Chest x-ray: Radiologist's Impresson: [address] [address] XRay Report Signed Patient: Porsche Branham MR#: [id number] : 1945 Acct:[id number] Age/Sex: 78 / F Date of Service: 12/15/23 Loc: ED Accession Number: [id number] Procedure: XR chest 1V Ordering Provider: Ha Roberto MD PROCEDURE: XR CHEST 1V INDICATIONS: chest pain TECHNIQUE: One view of the chest was acquired. COMPARISON: [facility], , CHEST 2 VIEW, 02/28/2011, 8:08. FINDINGS: Surgical changes and devices: None. Lungs and pleura: Lungs are clear. No pleural effusions or pneumothorax. Mediastinum: Mediastinal contours appear normal. Heart size is normal. There is likely a large hiatal hernia which is partially gas-filled. Bones and chest wall: No suspicious bony lesions. Overlying soft tissues appear unremarkable. IMPRESSION: No acute cardiopulmonary abnormality is seen. Probable large hiatal hernia which is incompletely characterized on single frontal view. Dictated by: Leti Palomo M.D. on 12/15/2023 at 10:20 Approved by: Leti Palomo M.D. on 12/15/2023 at 10:20 [facility] Narrative Medical decision making narrative: Patient has history of atrial fibrillation on warfarin. History of pulmonary embolism over a decade ago during extensive hospitalization secondary to sepsis. Patient here with . Patient sees [facility] for atrial fibrillation on warfarin. History of CHF during sepsis episode but currently no CHF. Denies any weight gain recently. Patient complains of slow heart rate down in the 50s which is unusual for her. She did have carvedilol changes 2 months ago with Cardiology, she is currently taking 6.25 mg in the morning and 12.5 mg at night. Patient has felt short of breath with exertion. She does notice her heart rate at times low after exertion/walking. Denies denies any palpitations or chest pain or any dizziness. Last echocardiogram on record is in September 2020. Results below. Denies any black or bloody stools. No recent illness. After history and exam EKG CBC CMP magnesium TSH chest x-ray property assessment monitor pulse ox BNP troponin D-dimer TSH MDM Medical records reviewed: Echocardiogram 2020 Differential considered: Includes but not limited to STEMI non-STEMI CHF symptomatic bradycardia pulmonary embolism Lab Test results independently reviewed as above. Pertinent findings: WBC 4.6 hemoglobin 12.3 INR 2.6 D-dimer 764, BUN 19 creatinine 0.79 GFR greater than 60 troponin less than 0.012 BNP 1020, TSH 2.31 Independently reviewed EKG sinus rhythm with PVCs, rate 71 Imaging studies independently reviewed: Chest x-ray no acute finding CT chest no acute finding Consultations: 12:15 p.m.. Spoke with Cardiology, dr huseyin kearns, on-call for Dr. Marina, patient can be discharged home. He will schedule an outpatient echocardiogram. No changes in medications or carvedilol. No admission or transfer indicated at this time. Patient had echocardiogram 6 months ago which was reassuring, he has records of it. BNP is nonspecific given chest x-ray is unremarkable with intermittent dyspnea. Treatments: Normal saline Re-evaluations: 11:24 a.m.. Updated patient has been results. Cardiology service has been contacted for consult. CT chest for PE rule out has been ordered. Patient has no symptoms here. No bradycardia on monitor during course of stay so far. 1:39 p.m.. Updated patient and again results of CT scan. Reassuring. No symptoms during course of stay here. They do desire discharge home. They will call cardiology office today or tomorrow before they go onto their boat trip. Return precautions reviewed. They desire discharge home. Discussion: Appropriate for discharge home. Exam is reassuring. Cardiology service was contacted and reviewed patient's results and treatment plan. Patient asymptomatic here during course of stay. Return precautions reviewed. Patient and desire discharge home. Patient never had chest pain. Diagnosis: Dyspnea/palpitation Discharge Plan Departure Patient Disposition: Home Clinical Impression: Acute dyspnea, Palpitations Instructions: DI for Shortness of Breath, DI for Bradycardia Activity Restrictions/Additional Instructions: Your cardiology office was contacted today. They would like you to call the office today or tomorrow for office appointment. The provider on-call was contacted. Your exam and laboratory studies and imaging studies are reassuring. Continue home medications. Return if worse if any questions or concerns. Prescriptions: No Action diclofenac sodium 1 % gel 2 g TOP QID PRN (Reason: pain) Qty: 100 3RF Rx Instructions: apply to single elbow, wrist or hand; for hand includes palm/fingers/back of hand levothyroxine 50 mcg tablet See Rx Instructions .ROUTE .COMPLEX Qty: 90 3RF Dose Instruction: TAKE 1 TABLET DAILY Rx Instructions: TAKE 1 TABLET DAILY methocarbamol 500 mg tablet 500 mg PO BID PRN (Reason: for muscle spasm) Qty: 180 3RF omeprazole 20 mg capsule,delayed release(DR/EC) 20 mg PO DAILY Qty: 90 3RF warfarin 5 mg tablet 5 mg PO DAILY Qty: 90 2RF Rx Instructions: 2.5mg total (1/2 tab) Friday and ; 5mg total (1 tab) all other days; or as directed. nitroglycerin 0.4 mg tablet, sublingual 0.4 mg sublingual PRN PRN (Reason: Chest Pain) multivitamin tablet 1 tab PO DAILY cholecalciferol (vitamin D3) 2,000 unit capsule 2,000 unit PO DAILY lutein-zeaxanthin [Ocuvite Lutein 25] 25-5 mg capsule 25 cap PO DAILY mecobalamin (vitamin B12) PO amlodipine 2.5 mg tablet 2.5 mg PO DAILY clobetasol 0.05 % cream 1 applic topical DAILY Qty: 60 2RF Rx Instructions: Nightly application to the affected area fluconazole 100 mg tablet 100 mg PO DAILY carvedilol 6.25 mg tablet 6.25 mg PO DAILY carvedilol 12.5 mg tablet 12.5 mg PO .NIGHT Rx Instructions: must administer with a meal/food ascorbic acid (vitamin C) PO DAILY losartan 100 mg tablet 100 mg PO DAILY clobetasol 0.05 % ointment 1 applic topical BID Referrals: Clair Zacarias DO [Primary Care Provider] - Stand Alone Forms: Patient Portal/API
[2023-12-15 10:00] LABS: PTT Partial Thromboplastin Tim 53 SECONDS (25.1-36.5)
[2023-12-15 10:01] LABS: Alanine Aminotransferase 26 IU/L (<35); Albumin 4.4 g/dL (3.5-5.0); Albumin Globulin Ratio 1.4 (1.0-2.8); Alkaline Phosphatase 72 U/L (38-126); Aspartate Aminotransferase 39 IU/L (14-36); BUN Creatinine Ratio 24.1 (6-22); Bilirubin Total 0.6 mg/dL (0.2-1.3); Blood Urea Nitrogen 19 mg/dL (7-17); Carbon Dioxide 31 mmol/L (22-32); Chloride 104 mmol/L (98-107); Creatine Kinase 74 U/L (30-135); Estimated Glomerular Filt Rate > 60 mL/min (>60); Globulin 3.2 g/dL (1.7-4.1); Glucose 64 mg/dL (80-110); HEMOLYSIS < 15 (0-50); Lipase 63 U/L (23-300); Magnesium 1.9 mg/dL (1.6-2.3); Sodium 138 mmol/L (137-145); Total Protein 7.6 g/dL (6.3-8.2)
[2023-12-15 10:13] LABS: Troponin I < 0.012 ng/mL (0.01-0.034)
[2023-12-15 10:34] LABS: D Dimer 764 ng/ml (<500)
[2023-12-15 10:37] LABS: NT-proBNP (BNP-Adult 18+) 1020 pg/mL (<450)
[2023-12-15 11:02] LABS: Thyroid Stimulating Hormone 2.31 uIU/mL (0.47-4.68)
--- NOTE | 2023-12-15 11:22 | DI.CT.S_ITS ---
PROCEDURE: CT ANGIO CHEST PE PROTOCOL INDICATIONS: Dyspnea TECHNIQUE: After the administration of intravenous contrast, 2 mm thick sections acquired from the pulmonary apices to the posterior costophrenic angles. 3-dimensional maximum intensity projection (MIP) coronal and sagittal reformats were then acquired through the thorax. For radiation dose reduction, the following was used: automated exposure control, adjustment of mA and/or kV according to patient size. COMPARISON: None. FINDINGS: Image quality: Diagnostic. Pulmonary arteries: Pulmonary arteries are normal in size, and demonstrate no intraluminal filling defects to suggest central pulmonary embolism. Lower Neck: No enlarged lymph nodes. Thyroid: No thyroid nodules which require sonographic follow up, per consensus guidelines. Axillae: No enlarged lymph nodes. Chest Wall: Unremarkable. Bones: Increased thoracic kyphosis.. Lungs and Pleura: No pneumothorax or pleural effusions. No consolidation or suspicious nodules. Heart: Heart size is normal. No pericardial effusion. Thoracic Vessels: No aortic aneurysm. Mediastinum and Hayley: No enlarged lymph nodes. Esophagus: No wall thickening. Moderate hiatal hernia. Upper Abdomen: Gallbladder is surgically absent. IMPRESSION: No pulmonary embolus. No acute cardiopulmonary process. Moderate hiatal hernia. Increased thoracic kyphosis. Dictated by: Anup Alba M.D. on 12/15/2023 at 13:02 Approved by: Anup Alba M.D. on 12/15/2023 at 13:13
--- NOTE | 2023-12-15 11:24 | PC.NURSE ---
Patient reports heart rate off and on in the 40's with fatigue and shortness of breath with exertion and light headedness the last few weeks. She reports when she feels her pulse it goes beat, beat, pause, beat, beat, pause.
--- NOTE | 2023-12-15 11:25 | PC.NURSE ---
pt reports SOB and slow heart rate that began about two weeks ago, she noticed around this time her SBP has also began to drop as well. baseline SBP is reported by pt to be around 140's-150's, in this department she is 110/66
[2023-12-15] MEDS: SODIUM CHLORIDE 0.9% 500 ML 1000 ML IV (11:27)
== END 2023-12-15 13:45 | disposition home or self-care (01) ==
PROVIDERS: Emergency Provider Emergency Medicine; Family Provider Family Medicine; PCP Family Medicine
DX: R00.2 Palpitations (principal); R06.00 Dyspnea, unspecified; R07.9 Chest pain, unspecified; I48.91 Unspecified atrial fibrillation; Z79.01 Long term (current) use of anticoagulants
CPT/HCPCS: 36415; 71045; 71275; 80053; 82550; 83690; 83735; 83880; 84443; 84484; 85025; 85379; 85610; 85730; 93005; 93010; 96360; 99284; Q9967

== ENCOUNTER 2024-02-04 10:11 | Emergency (ER) | payer MEDICARE, OTHER, SELFPAY ==
[2021-10-26 14:07] VITALS: BMI 24.0
[2024-02-04 10:19] VITALS: BP 139/82; PULSE 49; RESP 14; TEMP 36.7; O2SAT 100
--- NOTE | 2024-02-04 10:27 | DI.CT.S_ITS ---
PROCEDURE: CT HEAD/BRAIN WO CON INDICATIONS: head injury on coumadin TECHNIQUE: Noncontrast 4.5 mm thick angled axial sections acquired from the foramen magnum to the vertex, with coronal and sagittal reformats. For radiation dose reduction, the following was used: automated exposure control, adjustment of mA and/or kV according to patient size. COMPARISON: None. FINDINGS: Image quality: Diagnostic. CSF spaces: Basal cisterns are patent. No extra-axial fluid collections. The ventricles are symmetric in size and shape. Brain: No intracranial bleeds or masses. There is cerebral volume loss for age, with resultant ventricular and sulcal prominence. There are periventricular and deep white matter chronic small vessel ischemic changes. There is intracranial internal carotid artery atherosclerosis. Skull and face: Calvarium and visualized facial bones appear intact, without suspicious lesions. Sinuses: Visualized sinuses and mastoids are clear. IMPRESSION: No acute intracranial hemorrhage is seen. No acute intracranial pathology. Dictated by: Joshua Mustafa M.D. on 02/04/2024 at 10:05 Approved by: Joshua Mustafa M.D. on 02/04/2024 at 10:07
--- NOTE | 2024-02-04 10:28 | EKG_ITS ---
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
[2024-02-04 10:53] VITALS: BP 123/75; PULSE 65; O2SAT 97
[2024-02-04 11:00] VITALS: PULSE 66; O2SAT 97
[2024-02-04 11:01] VITALS: BP 123/59; PULSE 66; O2SAT 99
[2024-02-04 11:30] VITALS: BP 125/65; PULSE 65; O2SAT 98
[2024-02-04 12:00] VITALS: BP 130/71; PULSE 64; O2SAT 99
--- NOTE | 2024-02-04 12:04 | ED.HEATRA ---
HPI - Head Injury General Chief complaint: Head Injury Stated complaint: head injury t-3, headache Time Seen by Provider: 02/04/24 11:56 Source: patient Mode of arrival: Ambulatory Limitations: no limitations History of Present Illness HPI Narrative: 78-year-old female with complaint of a metal pipe falling and hitting on her head about 3 days ago. Patient states one of the pipes of them had fallen over the garage she went to pick it up and then another 1 fell over and hit her. Patient states hit her just behind the left ear. No lumps or bumps no skin changes. She states she has had a little bit of a mild headache that just has not resolved. She has had a little bit of mild nausea. She states no syncope, no loss of consciousness no neck pain, she did not fall. She denies any new numbness tingling or weakness. No difficulty with movement. No abdominal back or flank pain. Patient does use warfarin she checked with a home monitor, she checked herself 2 days ago was 2.1 which is in the system. She was able to recheck herself today at home. Patient states she does have a history of atrial fibrillation she did notice her heart beats been a little irregular and asked for an EKG. She had reached out to her primary care who recommended she come for head CT based on the metal pipe hitting her on the head and persistent headache with some nausea on anticoagulation. She denies any other issues. Defers anything for pain or headache. No tobacco occasional alcohol, no recreational drugs. Dr. Zacarias is her primary care physician. Related Data Home Medications Medication Instructions Recorded Confirmed cholecalciferol (vitamin D3) 50 2,000 unit PO DAILY 01/11/19 01/22/24 mcg (2,000 unit) capsule multivitamin 1 tab PO DAILY 01/11/19 01/22/24 lutein 25 mg-zeaxanthin 5 mg 25 cap PO DAILY 05/04/19 01/22/24 capsule (Ocuvite Lutein) nitroglycerin 0.4 mg sublingual 0.4 mg sublingual PRN PRN Chest 08/31/19 01/22/24 tablet Pain mecobalamin (vitamin B12) PO 03/31/20 01/22/24 ascorbic acid (vitamin C) PO DAILY 03/14/21 01/22/24 clobetasol 0.05 % topical ointment 1 applic topical BID 01/24/24 07/25/24 losartan 100 mg tablet 100 mg PO DAILY 07/23/23 01/22/24 amlodipine 2.5 mg tablet 2.5 mg PO DAILY 10/17/23 01/22/24 carvedilol 12.5 mg tablet 6.25 mg PO BID 01/22/24 01/22/24 carvedilol 6.25 mg tablet 6.25 mg PO BID 01/22/24 01/22/24 Previous Rx's Medication Instructions Recorded diclofenac sodium 1 % topical gel 2 g topical QID PRN pain #100 grams 05/20/22 methocarbamol 500 mg tablet 500 mg PO BID PRN for muscle spasm 06/02/23 #180 tabs omeprazole 20 mg capsule,delayed 20 mg PO DAILY #90 caps 08/06/23 release clobetasol 0.05 % topical cream 1 applic topical DAILY #60 grams 10/19/23 warfarin 5 mg tablet 5 mg PO DAILY #90 tabs 10/27/23 levothyroxine 50 mcg tablet See Rx Instructions .Route 01/02/24 .COMPLEX #90 tabs Allergies Allergy/AdvReac Type Severity Reaction Status Date / Time ampicillin Allergy Intermediate Rash Verified 02/04/24 10:19 Penicillins Allergy Intermediate Was told Verified 02/04/24 10:19 not to take due to Ampicillin reaction adhesive tape AdvReac Mild Blister/Skin Verified 02/04/24 10:19 came off. erythromycin base AdvReac Vomiting Verified 02/04/24 10:19 [From Erythrocin] within 10 min of taking oxycodone AdvReac twitching Verified 02/04/24 10:19 Review of Systems Review of Systems ROS Unobtainable: All systems reviewed & are unremarkable except as noted in HPI and below Patient History Medical History Lumbosacral radiculopathy at L4 Vitamin D deficiency Left knee DJD Facet arthropathy, lumbar Raynaud phenomenon Foraminal stenosis of lumbar region Lichen planus Osteoporosis Tenosynovitis of finger Spondylisthesis Vision disorder Rheumatoid arthritis Allergies (~1999) TGA (transient global amnesia) (~2014) Headache Scoliosis (~195) Rib fractures Pertussis (~1955) Rubella (~1950) Mumps Measles (~1949) Chicken pox (~1949) Hearing loss (~2008) Infertility (~1966) GERD (gastroesophageal reflux disease) (~2004) Diverticular disease (~2010) Colon polyps (~2016) Heart stopped beating (~2010) Heart failure (~2010) Deep vein thrombosis (~2010) History of pulmonary embolism (~2010) Paroxysmal A-fib (~2010) Essential hypertension (~2004) Hypothyroid Surgical History Anesthesia History of dilation and curettage History of tubal ligation History of surgery (~1966) Strabismus History of tonsillectomy and adenoidectomy Cataracts, bilateral (~2013) History of kidney surgery (~2010) History of colectomy (~2010) S/P exploratory laparotomy S/P devora (~1992) S/P partial colectomy (~2010) Family History Father Stroke Loud snoring Mother Alcohol abuse Brother Hypertension Sister Back problem Grandfather Cancer Grandmother Diabetes mellitus Grandfather Stroke Grandmother Stroke Social History household members: spouse Smoking Status: Never smoker Smoking Status: Never smoker alcohol intake frequency: holidays/special occasions only Alcohol type: other Substance Use Type: does not use Exam Narrative Exam Narrative: GEN: Patient appears in mild distress. HEAD: No evidence of trauma, no raccoon/Reynoso sign. NECK: Nontender, painless range of motion, trachea midline Negative Nexus criteria, no midline line tenderness, distracting injury, altered mental status, neuro deficit, recent EtOH. EYES: PERRLA, EOMI ENT: External inspection normal, trachea is midline, TM's are normal no hemotypanum, Nares are clear, no septal hematoma, no dental or oral injury, airway is normal and with normal occlusion, No bony tenderness RESP: Chest is nontender and has symmetric movement, no ecchymosis, breath sounds are normal no crackles, wheezes or rales CVS: Heart sounds are normal, no murmur noted, No JVD. ABG/GI: Nontender, soft, normal bowel sounds, no distention, no organomegaly. NEURO: Oriented AOx3, neuro is grossly intact, sensation and motor is normal all 4 extremities moving, cranial nerves II through XII are intact, GCS is 15 PSYCH: Normal mood and affect SKIN: Intact, warm and dry, no crepitus and without decubitus BACK: No CVA tenderness, no vertebral tenderness, no step-off's, no crepitus EXT: Atraumatic, hips are nontender, no pedal edema, normal color and temperature, normal range of motion of extremities with normal tendon exam, 2+ pulses in all four extremities Initial Vital Signs Initial Vital Signs: Vital Signs Temperature 98.1 F 02/04/24 10:19 Pulse Rate 49 L 02/04/24 10:19 Respiratory Rate 14 02/04/24 10:19 Blood Pressure 139/82 02/04/24 10:19 Pulse Oximetry 100 02/04/24 10:19 Oxygen Delivery Method Room Air 02/04/24 10:19 Course Orders Ordered: ED Orders 02/04/24 10:27 CT head/brain wo con Stat EKG-12 Lead Stat Vital Signs Vital signs: Vital Signs - 8 hr 02/04/24 10:19 02/04/24 10:53 02/04/24 10:53 Temperature 98.1 F Pulse Rate 49 L 65 Respiratory Rate 14 Blood Pressure 139/82 123/75 Pulse Oximetry 100 97 Oxygen Delivery Method Room Air Room Air 02/04/24 11:00 02/04/24 11:01 02/04/24 11:01 Temperature Pulse Rate 66 66 Respiratory Rate Blood Pressure 123/59 L Pulse Oximetry 97 99 Oxygen Delivery Method 02/04/24 11:30 02/04/24 11:30 02/04/24 12:00 Temperature Pulse Rate 65 Respiratory Rate Blood Pressure 125/65 130/71 Pulse Oximetry 98 Oxygen Delivery Method 02/04/24 12:00 Temperature Pulse Rate 64 Respiratory Rate Blood Pressure Pulse Oximetry 99 Oxygen Delivery Method MDM - Head Injury Imaging Data CT scan - head: Radiologist's Impression: [address] [address] [address] Scan Report Signed Patient: Porsche Branham MR#: [id number] : 1945 Acct:[id number] Age/Sex: 78 / F Date of Service: 02/04/24 Loc: ED Accession Number: [id number] Procedure: CT head/brain wo con Ordering Provider: Kate Warner D.O. PROCEDURE: CT HEAD/BRAIN WO CON INDICATIONS: head injury on coumadin TECHNIQUE: Noncontrast 4.5 mm thick angled axial sections acquired from the foramen magnum to the vertex, with coronal and sagittal reformats. For radiation dose reduction, the following was used: automated exposure control, adjustment of mA and/or kV according to patient size. COMPARISON: None. FINDINGS: Image quality: Diagnostic. CSF spaces: Basal cisterns are patent. No extra-axial fluid collections. The ventricles are symmetric in size and shape. Brain: No intracranial bleeds or masses. There is cerebral volume loss for age, with resultant ventricular and sulcal prominence. There are periventricular and deep white matter chronic small vessel ischemic changes. There is intracranial internal carotid artery atherosclerosis. Skull and face: Calvarium and visualized facial bones appear intact, without suspicious lesions. Sinuses: Visualized sinuses and mastoids are clear. IMPRESSION: No acute intracranial hemorrhage is seen. No acute intracranial pathology. Dictated by: Joshua Mustafa M.D. on 02/04/2024 at 10:05 Approved by: Joshua Mustafa M.D. on 02/04/2024 at 10:07 ECG Data Attestation: I personally reviewed and interpreted this ECG as follows: Prior ECG tracings: available for review Interpretation: Sinus rhythm frequent PVCs rate of 71 [place] 146 QRS 84 QTC 428, no acute ST elevation. Patient has prior EKG from 12/15/2019 fair some nonspecific change but patient does have frequent PVCs today. [facility] Narrative Medical decision making narrative: 78-year-old female had a large metal object fall on her head several days ago presents with complaint of headache she is on Coumadin. Last level was 2.1 on 02/02/2024 2 days prior. Discussed with patient about repeating her INR today, patient does home checks she is able to recheck her number at home today. We discussed if elevated beyond her normal range to hold her Coumadin for the next 1-2 days and recheck. If within normal range she continue as she is several days out from initial injury. Head CT is negative. Head CT shows no acute change EKG shows sinus rhythm frequent PVCs. Reviewed findings with patient, she has had some mild headaches and nausea she states they are very mild she defers anything for symptoms. She does not have any acute neurologic changes. She will go home and recheck her INR today. Reviewed next steps and return precautions with both her and her family at bedside. All questions answered. Discharge Plan Departure Patient Disposition: Home Clinical Impression: Head injury, Concussion Instructions: Concussion Activity Restrictions/Additional Instructions: Follow up as needed with your physician. Please recheck your INR today at home with your machine, if you are elevated beyond your normal range please hold your next 1 or 2 doses and recheck. If you are therapeutic you can continue with your current warfarin dosing. CT imaging does not show any acute bleed or change such as fracture today. Your EKG did show occasional PVCs but you appear to be in sinus rhythm. Please return for worsening headaches, new neck or back pain, vision changes, vomiting, new chest pain or shortness of breath, difficulty with movement, new numbness or weakness or other new or concerning changes. Prescriptions: No Action diclofenac sodium 1 % gel 2 g TOP QID PRN (Reason: pain) Qty: 100 3RF Rx Instructions: apply to single elbow, wrist or hand; for hand includes palm/fingers/back of hand methocarbamol 500 mg tablet 500 mg PO BID PRN (Reason: for muscle spasm) Qty: 180 3RF omeprazole 20 mg capsule,delayed release(DR/EC) 20 mg PO DAILY Qty: 90 3RF warfarin 5 mg tablet 5 mg PO DAILY Qty: 90 2RF Rx Instructions: 2.5mg total (1/2 tab) Friday and ; 5mg total (1 tab) all other days; or as directed. levothyroxine 50 mcg tablet See Rx Instructions .ROUTE .COMPLEX Qty: 90 3RF Dose Instruction: TAKE 1 TABLET DAILY Rx Instructions: TAKE 1 TABLET DAILY nitroglycerin 0.4 mg tablet, sublingual 0.4 mg sublingual PRN PRN (Reason: Chest Pain) multivitamin tablet 1 tab PO DAILY cholecalciferol (vitamin D3) 2,000 unit capsule 2,000 unit PO DAILY lutein-zeaxanthin [Ocuvite Lutein 25] 25-5 mg capsule 25 cap PO DAILY mecobalamin (vitamin B12) PO amlodipine 2.5 mg tablet 2.5 mg PO DAILY clobetasol 0.05 % cream 1 applic topical DAILY Qty: 60 2RF Rx Instructions: Nightly application to the affected area carvedilol 12.5 mg tablet 6.25 mg PO BID Rx Instructions: must administer with a meal/food carvedilol 6.25 mg tablet 6.25 mg PO BID ascorbic acid (vitamin C) PO DAILY losartan 100 mg tablet 100 mg PO DAILY clobetasol 0.05 % ointment 1 applic topical BID Referrals: Clair Zacarias DO [Primary Care Provider] - Stand Alone Forms: Patient Portal/API
== END 2024-02-04 12:23 | disposition home or self-care (01) ==
PROVIDERS: Emergency Provider Emergency Medicine; Family Provider Family Medicine; PCP Family Medicine
DX: S06.0XAA Concussion with loss of consciousness status unknown, initial encounter (principal); W20.8XXA Other cause of strike by thrown, projected or falling object, initial encounter; Z79.01 Long term (current) use of anticoagulants; I49.3 Ventricular premature depolarization
CPT/HCPCS: 70450; 93005; 93010; 99283; 99284

== ENCOUNTER → 2024-04-05 15:09 | Outpatient (CLI) | payer MEDICARE, OTHER, SELFPAY ==
[2024-03-10 14:17] VITALS: BMI 24.0
[2024-04-05 15:34] LABS: Estimated Glomerular Filt Rate > 60 mL/min (>60)
== END ==
PROVIDERS: Radiology Diagnostic Radiology; Family Provider Family Medicine; PCP Family Medicine; Referring Provider Otolaryngology Plastic Surgery within the Head & Neck; Visit Provider Otolaryngology Plastic Surgery within the Head & Neck
DX: C06.9 Malignant neoplasm of mouth, unspecified (principal)
CPT/HCPCS: 36415; 82565

== ENCOUNTER → 2024-04-06 09:06 | Outpatient (CLI) | payer MEDICARE, OTHER, SELFPAY ==
[2024-03-10 14:17] VITALS: BMI 24.0
--- NOTE | 2024-04-06 09:08 | DI.CT.S_ITS ---
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 Additional oblique axial 3.0 mm sections acquired through the pharynx. 3 mm thick coronal and sagittal reformats were generated. For radiation dose reduction, the following was used: automated exposure control. COMPARISON: [facility], CT, CT SOFT TISSUE NECK W CON, 09/01/2023, 8:04. FINDINGS: Image quality: Excellent. Lymph nodes: No enlarged lymph nodes seen throughout the neck. Vessels: Visualized vasculature appears patent. Neck spaces: The oropharynx, nasopharynx, and pharynx demonstrate no mucosal lesions. The vocal cords, false vocal cords, pyriform sinuses, epiglottis, vallecula, and tongue base all appear normal. Extramucosal spaces appear unremarkable. Glands: The parotid and submandibular glands appear normal. Thyroid gland is unremarkable. Miscellaneous: Visualized brain and orbits appear normal. Lung apices appear clear. Superficial soft tissues appear normal. Bones: Postsurgical changes reflecting partial right mandibulectomy. Soft tissue density previously identified adjacent to the resection cavity is unchanged.. Visualized sinuses and mastoids appear unremarkable. IMPRESSION: Stable postoperative changes without evidence of recurrent or residual disease. Dictated by: Susie Dunlap M.D. on 04/06/2024 at 13:53 Approved by: Susie Dunlap M.D. on 04/06/2024 at 13:59
== END ==
PROVIDERS: Family Provider Family Medicine; PCP Family Medicine; Referring Provider Otolaryngology Plastic Surgery within the Head & Neck; Visit Provider Otolaryngology Plastic Surgery within the Head & Neck
DX: Z08 Encounter for follow-up examination after completed treatment for malignant neoplasm (principal); Z85.810 Personal history of malignant neoplasm of tongue
CPT/HCPCS: 70491; Q9967

== ENCOUNTER 2024-04-08 13:54 | Outpatient (CLI) | payer MEDICARE, OTHER, SELFPAY ==
[2024-03-10 14:17] VITALS: BMI 24.0
[2024-04-08] VITALS (14 sets, daily range): BP systolic 123–145; BP diastolic 59–88; PULSE 70–78; RESP 14–19; TEMP 36.5; O2SAT 95–100
--- NOTE | 2024-04-08 14:30 | DI.RAD.S_ITS ---
PROCEDURE: PAIN L/S TRANSFORAM INJECT ALHAJI COMPARISON: [facility], XA, PAIN L/S TRANSFORAM INJECT ALHAJI, 12/14/2020, 13:08. INDICATIONS: Bilateral L4/5 transforaminal ALEJANDRINA FINDINGS: Intraoperative fluoroscopy provided for bilateral L4-5 transforaminal epidural steroid injection. Fluoroscopic spot images demonstrate needles at the right L4-5 and left L4-5 transforaminal regions with contrast injection. IMPRESSION: Intraoperative fluoroscopy for epidural steroid injection. Dictated by: Roxie Chaves M.D. on 04/09/2024 at 13:25 Approved by: Roxie Chaves M.D. on 04/09/2024 at 13:26
[2024-04-08] MEDS: MIDAZOLAM 2 MG/2 ML VIAL IV (15:01)
[2024-04-08] MEDS: BUPIVACAINE 0.25% (PF) VIAL 2 ML INJ (15:04)
[2024-04-08] MEDS: iopamidoL 15 ML VIAL 3 ML INJ (15:04)
[2024-04-08] MEDS: DEXAMETHASONE 10 MG/ML VIAL 20 MG INJ (15:05)
[2024-04-08] MEDS: BETAMETHASONE 30 MG/5 ML MDV 12 MG INJ (15:05)
--- NOTE | 2024-04-08 15:20 | PM.PROC.IR.1 ---
Date/Time/Diagnoses Date of procedure: 04/08/24 Time of procedure: 15:20 Pre-procedure diagnosis: 1. FORAMINAL STENOSIS WITH LE SYMPTOMS Procedure Notes Procedure: 1. FLUOROSCOPICALLY GUIDED CONTRAST CONTROLLED TRANSFORAMINAL EPIDURAL STEROID INJECTION - BILATERAL L4/5 TFESI Indications: Porsche Valente is referred by Dr. Zacarias for treatment of Foraminal Stenosis with bilateral LE Symptoms Physician: Merrill Wang Total Fluoroscopy time (seconds): 21 Total sedation minutes: 15 Complications: none Procedure in detail & Post-procedure care: FINDINGS Foraminal Nerve Root Compression secondary to disc disease and facet hypertrophy DESCRIPTION OF PROCEDURE Following review of allergy and review of potential side effects and complications, including, but not necessarily limited to, infection, allergic reaction, local tissue breakdown, stroke, temporary or permanent nerve injury, paralysis, and possible , the patient indicated that the patient understood and agreed to proceed. An informed consent document was signed by the patient, witnessed by a nurse, and placed in the patient's chart. Additionally, other treatment options including medications, modalities, and physical therapy were reviewed with the patient. After review of previous anaesthesic history and IV conscious sedation the patient was deemed safe to proceed with today?s procedure with IV conscious sedation as ASA class II designation. Safety time-out was performed to confirm patient ID, procedure to be performed and site of procedure. IV sedation was accomplished with a combination of 2mg of Versed was administered by the RN after DO order, titrated to patient comfort during the course of the procedure while the patient remained responsive to all verbal commands In the prone position following sterile prep and drape of the lumbar region, the right L4/5 posterior neuroforamen was identified fluoroscopically. The skin was anesthetized via a 25-gauge 1.5-inch needle with 1% lidocaine solution. At this point, a 25-gauge 3.5-inch spinal needle was atraumatically introduced and advanced under fluoroscopic guidance through the posterior right L4/5 neuroforamen to approximately the anterior aspect of the canal. Depth was confirmed on lateral view. Following negative aspiration, injection of approximately 1.5cc of Isovue 200 under live fluoroscopy in the AP view confirmed excellent flow along the nerve root, into the epidural space without vascular or intrathecal uptake observed Radiological data, including multiple fluoroscopic views of the lumbosacral spine, reveal a spinal needle at the right L4/5 posterior neuroforamen. Subsequent views show flow of contrast material flowing superiorly and inferiorly along the nerve root confirming epidural flow. Subsequently, a test dose of 1.5cc of 1% lidocaine solution was administered and patient was observed for two minutes for signs or symptoms of complications, including abdominal pain, shortness of breath, bilateral upper or lower extremity weakness, nausea and vomiting, prior to steroid injection. At this point, a total of 2cc or 10mg of dexamethasone and 6mg betamethasone was injected without incident. Attention was then refocused to the left L4/5 level where the identical procedure was replicated. The procedure tolerated the procedure well without signs or symptoms of complications prior to transfer to the recovery area continued monitoring without incident. The patient was then transferred to the recovery area where they were observed for an appropriate time after the injection. The patient reported a VAS score of 7 prior to the procedure and a post-procedure VAS of 0. POST OP INSTRUCTIONS The patient was provided a Pain Log to continue to record their response to the target-specific procedure prior to follow-up visit with their referring physician. Additionally, specific post-injection care instructions and a contact number to our office were provided if concerns arise regarding possible complications associated with the procedure are suspected.
== END 2024-04-08 16:11 | disposition home or self-care (01) ==
LOC: RAD 13:55
PROVIDERS: Family Provider Family Medicine; PCP Family Medicine; Referring Provider Physical Medicine & Rehabilitation; Visit Provider Physical Medicine & Rehabilitation
DX: M48.061 Spinal stenosis, lumbar region without neurogenic claudication (principal); M51.16 Intervertebral disc disorders with radiculopathy, lumbar region; M47.26 Other spondylosis with radiculopathy, lumbar region
CPT/HCPCS: 64483; 99152; J0702; J1100; J2250; J3490

== ENCOUNTER 2024-06-02 15:15 | Outpatient (RCR) | payer MEDICARE, OTHER, SELFPAY ==
[2021-10-26 14:07] VITALS: BMI 24.0
--- NOTE | 2024-03-08 10:32 | PT.OTN ---
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 Pt was previously treated at this clinic ~2.5 years ago for similar concerns with good results, however pt notes that she feels like she is much worse at this point. Has suffered three falls over the past three months, feels like it has mostly been due to catching her feet or walking on uneven surfaces. Does not use any assistive device, but I feel a lot better when I'm using a shopping cart. Does have a history of scoliosis and overall poor posture, but feels it is worsening. PT-OP-C Subjective Start: 03/08/24 14:26 Freq: Status: Active Protocol: Document 03/08/24 09:45 DCW (Rec: 03/08/24 14:31 DCW [id number]) OP-PT Subjective Patient Comments Patient Comments I stagger all over the place. Patient Reported Progress Worse Patient Questionnaires ABC- Activity Specific Balance Confidence Scale ABC Score 35.63% Dizziness Handicap Inventory DHI Score 50% Other Questionnaire Name and Score Falls Efficacy Score - International: 34/64 PT-OP-D Balance Start: 03/08/24 14:26 Freq: Status: Active Protocol: Document 03/08/24 09:45 DCW (Rec: 03/08/24 16:47 DCW [id number]) Balance Tests Yee Balance Test Yee Balance Test Score 35/56 Yee Impairment Rating 20 to 39% Impaired (Score 34- 44) Yee Balance Assessment Evaluation Sitting to Standing Ability Independent w/Hands Unsupported Stance Safely- 2 minutes Sitting Unsupported, Feet on Floor Safely- 2 minutes Standing to Sitting Ability Independent, Uncontrolled Transfer Ability Safely, Hand Use Unsupported Stance- Eyes Closed 3 seconds Unsupported Stance- Eyes Open Independent, <30 seconds Reaching Forward Standing Safely, 5 inches Pick- Up Object From Floor Supervision Look Behind Shoulder - Standing Turns Sideways Only Turning 360 Degrees Turns slowly, but safely Unsupported Stance, Alternating Feet on 4 Steps w/Supervision Stair Unsupported Tandem Stance Holds Tandem- 30 seconds Unilateral Leg Stance Lifts Leg/Unable to Hold Total Score Yee Total Score (out of 56 points) 35 Yee Impairment Rating 20 to 39% Impaired (Score 34- 44) PT-OP-E Functional Tests Start: 03/08/24 14:26 Freq: Status: Active Protocol: Document 03/08/24 09:45 DCW (Rec: 03/08/24 16:47 [facility] [id number]) Functional Tests Dynamic Gait Index (DGI) Score 05/23 DGI Impairment Rating 40 to <60% Impaired (Score 10- 14) PT-OP-J Posture/Palpation/Skin Start: 03/08/24 17:54 Freq: Status: Active Protocol: Document 03/08/24 09:45 DCW (Rec: 03/09/24 09:32 [facility] [id number]) Posture Evaluation Position Standing T-Spine Posture Fixed Scoliosis on (R), Increased Kyphosis L-Spine Posture Fixed Scoliosis on (L) Knee Posture (L) Excess Flexion,(R) Excess Flexion Comments Posture Comments Pt stands with bilateral knees in 10? flexion PT-OP-M Strength Start: 03/08/24 14:26 Freq: Status: Active Protocol: Document 03/08/24 09:45 DCW (Rec: 03/08/24 16:47 [facility] [id number]) Hip Strength Hip Manual Muscle Testing Right Flexion (L2) 3+ Fair+ Abduction 3+ Fair+ Adduction 4- Good- External Rotation 4- Good- Internal Rotation 4- Good- Left Flexion (L2) 3+ Fair+ Abduction 3+ Fair+ Adduction 4- Good- External Rotation 4- Good- Internal Rotation 4- Good- Knee Strength Knee Manual Muscle Testing Right Flexion (S2) 4 Good Extension (L3) 3 Fair Left Flexion (S2) 4 Good Extension (L3) 3+ Fair+ Ankle/Foot Strength Ankle and Foot Manual Muscle Testing Right Dorsiflexion (L4) 4 Good Left Dorsiflexion (L4) 4 Good PT-OP-T Assessment and Plan Start: 03/08/24 14:26 Freq: Status: Active Protocol: Document 03/08/24 09:45 DCW (Rec: 03/08/24 17:54 DCW [id number]) Physical Therapy Assessment Rehab Potential Rehabilitation Potential Fair Evaluation Complexity Number of Personal Factors/Comorbidities 3 or More Number of Body Systems Impaired 4 or More Clinical Presentation at Evaluation Unstable Impairments Impairments Activity Tolerance,Balance, Functional Activities, Functional Mobility,Posture, Soft Tissue Mobility,Strength Other Concerns Fall Risk Yes, per Yee (35/56) and DGI (05/23) scores Goals Three Impairment Poor posture secondary to scoliosis and inability to fully extend knees Half-Way Goal (LTG) Pt to demonstrate ability to stand with knees in 0? extension >75% of the time with no cues in order to improve ability to keep center of gravity over base of support. LTG Duration 06/06/24 Two Impairment Pt presents as a significant falls risk, per Yee (35/56) and DGI (05/23) Half-Way Goal (LTG) Pt to exhibit a decrease in risk of falls by improving DGI score by at least five points to LTG Duration 06/06/24 One Impairment Pt does not have an appropriate home exercise program Short Term Goal (STG) Pt to be independent and compliant with an appropriate HEP STG Duration 04/07/24 Assessment Summary Assessment Pt presents with signs and symptoms consistent with referring diagnosis. Pt exhibits a fairly significant falls risk, per Yee (35/56) and DGI (05/23) scores. Pt additionally struggles with lower extremity weakness, with all testing hip planes bilaterally 4-/5 or worse. Discussed with pt importance of improving safety, and may need to work with implementing use of assistive device. Will likely benefit from skilled therapy focusing on balance, strengthening, activity tolerance, posture training, AD use, uneven surface ambulation, and falls recovery . Physical Therapy Plan Frequency and Duration Frequency of Treatment 2x/Week Plan of Care Start Date 03/08/24 Plan of Care End Date 06/06/24 Therapeutic Interventions Therapeutic Interventions Balance Training,Home Exercise Program,Joint Mobilizations, Manual Therapy,Neuromuscular Re-education,Patient/Caregiver Education,Self-Care/Home Management,Soft Tissue Mobilization,Therapeutic Activities,Therapeutic Exercises Next Visit Focus/Plan Next Note Type Treatment Note Next Visit Plan LE strengthening, posture exercises, balance challenges
--- NOTE | 2024-03-08 10:33 | PT.OPPOC ---
Physical, Occupational & Speech Therapy At [facility] Current Diagnoses Unsteadiness on feet (03/08/24) Other abnormalities of gait and mobility (03/08/24) Repeated falls (03/08/24) Visit Care Team Role Provider Type Clair Zacarias DO Attending Provider Physician Family Provider Primary Care Provider Referring Provider Specialty: Family Practice Address: [address] [place] [address], [address], [place] Email: [email or web address] Plan Of Care PT-OP-B Current Condition Start: 03/08/24 14:26 Freq: Status: Active Protocol: Document 03/08/24 09:45 DCW (Rec: 03/08/24 17:54 DCW [id number]) Current Condition History of Current Condition Onset Date Long-standing history Current Complaints Poor balance, worsening posture, falls, weakness History of Current Condition Pt is an 78 year old female presenting with a long- standing history of poor balance, weakness, falls. Pt was previously treated at this clinic ~2.5 years ago for similar concerns with good results, however pt notes that she feels like she is much worse at this point. Has suffered three falls over the past three months, feels like it has mostly been due to catching her feet or walking on uneven surfaces. Does not use any assistive device, but I feel a lot better when I'm using a shopping cart. Does have a history of scoliosis and overall poor posture, but feels it is worsening. PT-OP-T Assessment and Plan Start: 03/08/24 14:26 Freq: Status: Active Protocol: Document 03/08/24 09:45 DCW (Rec: 03/08/24 17:54 DCW [id number]) Physical Therapy Assessment Rehab Potential Rehabilitation Potential Fair Evaluation Complexity Number of Personal Factors/Comorbidities 3 or More Number of Body Systems Impaired 4 or More Clinical Presentation at Evaluation Unstable Impairments Impairments Activity Tolerance,Balance, Functional Activities, Functional Mobility,Posture, Soft Tissue Mobility,Strength Other Concerns Fall Risk Yes, per Yee (35/56) and DGI (05/23) scores Goals Three Impairment Poor posture secondary to scoliosis and inability to fully extend knees High Court Justice Goal (LTG) Pt to demonstrate ability to stand with knees in 0? extension >75% of the time with no cues in order to improve ability to keep center of gravity over base of support. LTG Duration 06/06/24 Two Impairment Pt presents as a significant falls risk, per Yee (35/56) and DGI (05/23) [address] Justice Goal (LTG) Pt to exhibit a decrease in risk of falls by improving DGI score by at least five points to 1624 LTG Duration 06/06/24 One Impairment Pt does not have an appropriate home exercise program Short Term Goal (STG) Pt to be independent and compliant with an appropriate HEP STG Duration 04/07/24 Assessment Summary Assessment Pt presents with signs and symptoms consistent with referring diagnosis. Pt exhibits a fairly significant falls risk, per Yee (35/56) and DGI (05/23) scores. Pt additionally struggles with lower extremity weakness, with all testing hip planes bilaterally 4-/5 or worse. Discussed with pt importance of improving safety, and may need to work with implementing use of assistive device. Will likely benefit from skilled therapy focusing on balance, strengthening, activity tolerance, posture training, AD use, uneven surface ambulation, and falls recovery . Physical Therapy Plan Frequency and Duration Frequency of Treatment 2x/Week Plan of Care Start Date 03/08/24 Plan of Care End Date 06/06/24 Therapeutic Interventions Therapeutic Interventions Balance Training,Home Exercise Program,Joint Mobilizations, Manual Therapy,Neuromuscular Re-education,Patient/Caregiver Education,Self-Care/Home Management,Soft Tissue Mobilization,Therapeutic Activities,Therapeutic Exercises Next Visit Focus/Plan Next Note Type Treatment Note Next Visit Plan LE strengthening, posture exercises, balance challenges Plan of Care Dates Plan of Care Start Date 03/08/24 Plan of Care End Date 06/06/24 Electronically Signed by: Oziel Carlos, PT 03/09/24 0933 If you are in agreement with this Plan of Care, please return a signed and dated copy. I have reviewed this Plan of Care and certify that the skilled therapy services above are required to meet the patient?s needs. Physician Signature Date Printed Name and Credentials Clinical Instructor Signature Printed Name and Credentials
--- NOTE | 2024-03-11 10:28 | PT.OTN ---
Current Diagnoses Unsteadiness on feet (03/11/24) Other abnormalities of gait and mobility (03/11/24) Repeated falls (03/11/24) Physical Therapy Treatment Note PT-OP-A Visit Information Start: 03/08/24 14:26 Freq: Status: Active Protocol: Document 03/11/24 09:45 DCW (Rec: 03/11/24 10:28 DCW [id number]) Out-Patient Physical Therapy Visit Information Visit Information Visit Type Treatment Note Visit Start Time 09:45 Visit Stop Time 10:30 Visit Number 2 Number of CASE RESOURCE MANAGER Visits 0 Evaluation Information Evaluation Date 03/08/24 PT-OP-B Current Condition Start: 03/08/24 14:26 Freq: Status: Active Protocol: Document 03/08/24 09:45 DCW (Rec: 03/08/24 17:54 DCW [id number]) Current Condition History of Current Condition Onset Date Long-standing history Current Complaints Poor balance, worsening posture, falls, weakness History of Current Condition Pt is an 78 year old female presenting with a long- standing history of poor balance, weakness, falls. Pt was previously treated at this clinic ~2.5 years ago for similar concerns with good results, however pt notes that she feels like she is much worse at this point. Has suffered three falls over the past three months, feels like it has mostly been due to catching her feet or walking on uneven surfaces. Does not use any assistive device, but I feel a lot better when I'm using a shopping cart. Does have a history of scoliosis and overall poor posture, but feels it is worsening. PT-OP-C Subjective Start: 03/08/24 14:26 Freq: Status: Active Protocol: Document 03/11/24 09:45 DCW (Rec: 03/11/24 10:28 DCW [id number]) OP-PT Subjective Patient Comments Patient Comments Pt notes today is her 58th anniversary. PT-OP-D Balance Start: 03/08/24 14:26 Freq: Status: Active Protocol: Document 03/08/24 09:45 DCW (Rec: 03/08/24 16:47 DCW [id number]) Balance Tests Yee Balance Test Yee Balance Test Score 35/56 Yee Impairment Rating 20 to 39% Impaired (Score 34- 44) Yee Balance Assessment Evaluation Sitting to Standing Ability Independent w/Hands Unsupported Stance Safely- 2 minutes Sitting Unsupported, Feet on Floor Safely- 2 minutes Standing to Sitting Ability Independent, Uncontrolled Transfer Ability Safely, Hand Use Unsupported Stance- Eyes Closed 3 seconds Unsupported Stance- Eyes Open Independent, <30 seconds Reaching Forward Standing Safely, 5 inches Pick- Up Object From Floor Supervision Look Behind Shoulder - Standing Turns Sideways Only Turning 360 Degrees Turns slowly, but safely Unsupported Stance, Alternating Feet on 4 Steps w/Supervision Stair Unsupported Tandem Stance Holds Tandem- 30 seconds Unilateral Leg Stance Lifts Leg/Unable to Hold Total Score Yee Total Score (out of 56 points) 35 Yee Impairment Rating 20 to 39% Impaired (Score 34- 44) PT-OP-E Functional Tests Start: 03/08/24 14:26 Freq: Status: Active Protocol: Document 03/08/24 09:45 DCW (Rec: 03/08/24 16:47 DCW [id number]) Functional Tests Dynamic Gait Index (DGI) Score 05/23 DGI Impairment Rating 40 to <60% Impaired (Score 10- 14) PT-OP-J Posture/Palpation/Skin Start: 03/08/24 17:54 Freq: Status: Active Protocol: Document 03/08/24 09:45 DCW (Rec: 03/09/24 09:32 DCW [id number]) Posture Evaluation Position Standing T-Spine Posture Fixed Scoliosis on (R), Increased Kyphosis L-Spine Posture Fixed Scoliosis on (L) Knee Posture (L) Excess Flexion,(R) Excess Flexion Comments Posture Comments Pt stands with bilateral knees in 10? flexion PT-OP-M Strength Start: 03/08/24 14:26 Freq: Status: Active Protocol: Document 03/08/24 09:45 DCW (Rec: 03/08/24 16:47 DCW [id number]) Hip Strength Hip Manual Muscle Testing Right Flexion (L2) 3+ Fair+ Abduction 3+ Fair+ Adduction 4- Good- External Rotation 4- Good- Internal Rotation 4- Good- Left Flexion (L2) 3+ Fair+ Abduction 3+ Fair+ Adduction 4- Good- External Rotation 4- Good- Internal Rotation 4- Good- Knee Strength Knee Manual Muscle Testing Right Flexion (S2) 4 Good Extension (L3) 3 Fair Left Flexion (S2) 4 Good Extension (L3) 3+ Fair+ Ankle/Foot Strength Ankle and Foot Manual Muscle Testing Right Dorsiflexion (L4) 4 Good Left Dorsiflexion (L4) 4 Good PT-OP-Q Treatments Start: 03/08/24 14:26 Freq: Status: Active Protocol: Document 03/11/24 09:45 DCW (Rec: 03/11/24 10:28 [facility] [id number]) Cardio Equipment Recumbent Elliptical (Biodex) Duration (Minutes) 5 Resistance 5 Seat Position 6 Gym Equipment Shuttle Recovery Unilateral Squats Resistance 37# Shuttle Recovery Platform Stable Bilateral Squats Resistance 62# Shuttle Recovery Platform Stable Therapeutic Exercises Other Exercises Step-ups Other Exercise Name Step-ups Resistance 6 step Resisted Ambulation Other Exercise Name Resisted side-stepping Resistance Lv 2 loop Neuro Re-Education Treatment Balance Activities Foam Details EO/EC, Head turns Tandem Details Tandem Stance Hurdles Details Hurdles Comments Fwd, Side-stepping PT-OP-T Assessment and Plan Start: 03/08/24 14:26 Freq: Status: Active Protocol: Document 03/11/24 09:45 DCW (Rec: 03/11/24 10:28 [facility] [id number]) Physical Therapy Assessment Assessment Summary Assessment Good tolerance to activity, agreeable to add resisted side -stepping to home exercise. Left knee limited some activities, bothered pt with leg press, admitted it was more weakness than pain. Physical Therapy Plan Frequency and Duration Frequency of Treatment 2x/Week Plan of Care Start Date 03/08/24 Plan of Care End Date 06/06/24 Therapeutic Interventions Therapeutic Interventions Balance Training,Home Exercise Program,Joint Mobilizations, Manual Therapy,Neuromuscular Re-education,Patient/Caregiver Education,Self-Care/Home Management,Soft Tissue Mobilization,Therapeutic Activities,Therapeutic Exercises Next Visit Focus/Plan Next Note Type Treatment Note Next Visit Plan LE strengthening, posture exercises, balance challenges
--- NOTE | 2024-03-15 10:30 | PT.OTN ---
Current Diagnoses Unsteadiness on feet (03/15/24) Other abnormalities of gait and mobility (03/15/24) Repeated falls (03/15/24) Physical Therapy Treatment Note PT-OP-A Visit Information Start: 03/08/24 14:26 Freq: Status: Active Protocol: Document 03/15/24 09:45 DCW (Rec: 03/15/24 10:30 DCW [id number]) Out-Patient Physical Therapy Visit Information Visit Information Visit Type Treatment Note Visit Start Time 09:45 Visit Stop Time 10:30 Visit Number 3 Number of ELECTRICAL LINEWORKER Visits 0 Evaluation Information Evaluation Date 03/08/24 PT-OP-B Current Condition Start: 03/08/24 14:26 Freq: Status: Active Protocol: Document 03/08/24 09:45 DCW (Rec: 03/08/24 17:54 DCW [id number]) Current Condition History of Current Condition Onset Date Long-standing history Current Complaints Poor balance, worsening posture, falls, weakness History of Current Condition Pt is an 78 year old female presenting with a long- standing history of poor balance, weakness, falls. Pt was previously treated at this clinic ~2.5 years ago for similar concerns with good results, however pt notes that she feels like she is much worse at this point. Has suffered three falls over the past three months, feels like it has mostly been due to catching her feet or walking on uneven surfaces. Does not use any assistive device, but I feel a lot better when I'm using a shopping cart. Does have a history of scoliosis and overall poor posture, but feels it is worsening. PT-OP-C Subjective Start: 03/08/24 14:26 Freq: Status: Active Protocol: Document 03/15/24 09:45 DCW (Rec: 03/15/24 10:30 DCW [id number]) OP-PT Subjective Patient Comments Patient Comments Pt notes she has a busy week planned. Reports her balance is not worse, maybe a little better. PT-OP-D Balance Start: 03/08/24 14:26 Freq: Status: Active Protocol: Document 03/08/24 09:45 DCW (Rec: 03/08/24 16:47 DCW [id number]) Balance Tests Yee Balance Test Yee Balance Test Score 35/56 Yee Impairment Rating 20 to 39% Impaired (Score 34- 44) Yee Balance Assessment Evaluation Sitting to Standing Ability Independent w/Hands Unsupported Stance Safely- 2 minutes Sitting Unsupported, Feet on Floor Safely- 2 minutes Standing to Sitting Ability Independent, Uncontrolled Transfer Ability Safely, Hand Use Unsupported Stance- Eyes Closed 3 seconds Unsupported Stance- Eyes Open Independent, <30 seconds Reaching Forward Standing Safely, 5 inches Pick- Up Object From Floor Supervision Look Behind Shoulder - Standing Turns Sideways Only Turning 360 Degrees Turns slowly, but safely Unsupported Stance, Alternating Feet on 4 Steps w/Supervision Stair Unsupported Tandem Stance Holds Tandem- 30 seconds Unilateral Leg Stance Lifts Leg/Unable to Hold Total Score Yee Total Score (out of 56 points) 35 Yee Impairment Rating 20 to 39% Impaired (Score 34- 44) PT-OP-E Functional Tests Start: 03/08/24 14:26 Freq: Status: Active Protocol: Document 03/08/24 09:45 DCW (Rec: 03/08/24 16:47 DCW [id number]) Functional Tests Dynamic Gait Index (DGI) Score 05/23 DGI Impairment Rating 40 to <60% Impaired (Score 10- 14) PT-OP-J Posture/Palpation/Skin Start: 03/08/24 17:54 Freq: Status: Active Protocol: Document 03/08/24 09:45 DCW (Rec: 03/09/24 09:32 DCW [id number]) Posture Evaluation Position Standing T-Spine Posture Fixed Scoliosis on (R), Increased Kyphosis L-Spine Posture Fixed Scoliosis on (L) Knee Posture (L) Excess Flexion,(R) Excess Flexion Comments Posture Comments Pt stands with bilateral knees in 10? flexion PT-OP-M Strength Start: 03/08/24 14:26 Freq: Status: Active Protocol: Document 03/08/24 09:45 DCW (Rec: 03/08/24 16:47 DCW [id number]) Hip Strength Hip Manual Muscle Testing Right Flexion (L2) 3+ Fair+ Abduction 3+ Fair+ Adduction 4- Good- External Rotation 4- Good- Internal Rotation 4- Good- Left Flexion (L2) 3+ Fair+ Abduction 3+ Fair+ Adduction 4- Good- External Rotation 4- Good- Internal Rotation 4- Good- Knee Strength Knee Manual Muscle Testing Right Flexion (S2) 4 Good Extension (L3) 3 Fair Left Flexion (S2) 4 Good Extension (L3) 3+ Fair+ Ankle/Foot Strength Ankle and Foot Manual Muscle Testing Right Dorsiflexion (L4) 4 Good Left Dorsiflexion (L4) 4 Good PT-OP-Q Treatments Start: 03/08/24 14:26 Freq: Status: Active Protocol: Document 03/15/24 09:45 DCW (Rec: 03/15/24 10:30 DCW [id number]) Cardio Equipment Recumbent Elliptical (Biodex) Duration (Minutes) 6 Resistance 5 Seat Position 9 Gym Equipment Shuttle Recovery Unilateral Squats Resistance 37# Shuttle Recovery Platform Stable Bilateral Squats Resistance 62#->50# Shuttle Recovery Platform Stable Therapeutic Exercises Other Exercises Toe Taps Other Exercise Name Toe taps Side bilateral Resistance 4# Equipment Used 6 step Neuro Re-Education Treatment Balance Activities Dynamic Gait Details Hallway ambulation Comments Head turns (90 bpm) Retro ambulation Tandem Details Tandem Gait Equipment // bars Hurdles Details Hurdles Comments Fwd, Side-stepping PT-OP-T Assessment and Plan Start: 03/08/24 14:26 Freq: Status: Active Protocol: Document 03/15/24 09:45 DCW (Rec: 03/15/24 10:30 DCW [id number]) Physical Therapy Assessment Impairments Impairments Activity Tolerance,Balance, Functional Activities, Functional Mobility,Posture, Soft Tissue Mobility,Strength Goals Three Impairment Poor posture secondary to scoliosis and inability to fully extend knees Detention Goal (LTG) Pt to demonstrate ability to stand with knees in 0? extension >75% of the time with no cues in order to improve ability to keep center of gravity over base of support. LTG Duration 06/06/24 Two Impairment Pt presents as a significant falls risk, per Yee (35/56) and DGI (05/23) Policy Manager Goal (LTG) Pt to exhibit a decrease in risk of falls by improving DGI score by at least five points to LTG Duration 06/06/24 One Impairment Pt does not have an appropriate home exercise program Short Term Goal (STG) Pt to be independent and compliant with an appropriate HEP STG Duration 04/07/24 Assessment Summary Assessment Pt's biggest limiting factor continues to be left LE weakness, frequently caught left foot on hurdles when attempting to step over, and limited her ability to push against resistance on leg press. Continue to focus on LE strengthening, balance, functional mobility, and dynamic gait. Physical Therapy Plan Frequency and Duration Frequency of Treatment 2x/Week Plan of Care Start Date 03/08/24 Plan of Care End Date 06/06/24 Therapeutic Interventions Therapeutic Interventions Balance Training,Home Exercise Program,Joint Mobilizations, Manual Therapy,Neuromuscular Re-education,Patient/Caregiver Education,Self-Care/Home Management,Soft Tissue Mobilization,Therapeutic Activities,Therapeutic Exercises Next Visit Focus/Plan Next Note Type Treatment Note Next Visit Plan LE strengthening, posture exercises, balance challenges
--- NOTE | 2024-03-18 16:25 | PT.OTN ---
Current Diagnoses Unsteadiness on feet (03/18/24) Other abnormalities of gait and mobility (03/18/24) Repeated falls (03/18/24) Physical Therapy Treatment Note PT-OP-A Visit Information Start: 03/08/24 14:26 Freq: Status: Active Protocol: Document 03/18/24 08:07 AB (Rec: 03/18/24 09:01 AB [id number]) Out-Patient Physical Therapy Visit Information Visit Information Visit Type Treatment Note Visit Note Access Code: [email or web address] Visit Start Time 08:16 Visit Stop Time 09:00 Visit Number 4 Number of PILER Visits 1 Evaluation Information Evaluation Date 03/08/24 PT-OP-B Current Condition Start: 03/08/24 14:26 Freq: Status: Active Protocol: Document 03/08/24 09:45 DCW (Rec: 03/08/24 17:54 DCW [id number]) Current Condition History of Current Condition Onset Date Long-standing history Current Complaints Poor balance, worsening posture, falls, weakness History of Current Condition Pt is an 78 year old female presenting with a long- standing history of poor balance, weakness, falls. Pt was previously treated at this clinic ~2.5 years ago for similar concerns with good results, however pt notes that she feels like she is much worse at this point. Has suffered three falls over the past three months, feels like it has mostly been due to catching her feet or walking on uneven surfaces. Does not use any assistive device, but I feel a lot better when I'm using a shopping cart. Does have a history of scoliosis and overall poor posture, but feels it is worsening. PT-OP-C Subjective Start: 03/08/24 14:26 Freq: Status: Active Protocol: Document 03/18/24 08:07 AB (Rec: 03/18/24 09:01 AB [id number]) OP-PT Subjective Patient Comments Patient Comments Patient reports she is the same, not as good as the time before last. Patient reports back has been bothering, premedicated this morning. PT-OP-D Balance Start: 03/08/24 14:26 Freq: Status: Active Protocol: Document 03/08/24 09:45 DCW (Rec: 03/08/24 16:47 DCW [id number]) Balance Tests Yee Balance Test Yee Balance Test Score 35/56 Yee Impairment Rating 20 to 39% Impaired (Score 34- 44) Yee Balance Assessment Evaluation Sitting to Standing Ability Independent w/Hands Unsupported Stance Safely- 2 minutes Sitting Unsupported, Feet on Floor Safely- 2 minutes Standing to Sitting Ability Independent, Uncontrolled Transfer Ability Safely, Hand Use Unsupported Stance- Eyes Closed 3 seconds Unsupported Stance- Eyes Open Independent, <30 seconds Reaching Forward Standing Safely, 5 inches Pick- Up Object From Floor Supervision Look Behind Shoulder - Standing Turns Sideways Only Turning 360 Degrees Turns slowly, but safely Unsupported Stance, Alternating Feet on 4 Steps w/Supervision Stair Unsupported Tandem Stance Holds Tandem- 30 seconds Unilateral Leg Stance Lifts Leg/Unable to Hold Total Score Yee Total Score (out of 56 points) 35 Yee Impairment Rating 20 to 39% Impaired (Score 34- 44) PT-OP-E Functional Tests Start: 03/08/24 14:26 Freq: Status: Active Protocol: Document 03/08/24 09:45 DCW (Rec: 03/08/24 16:47 DCW [id number]) Functional Tests Dynamic Gait Index (DGI) Score 05/23 DGI Impairment Rating 40 to <60% Impaired (Score 10- 14) PT-OP-J Posture/Palpation/Skin Start: 03/08/24 17:54 Freq: Status: Active Protocol: Document 03/08/24 09:45 DCW (Rec: 03/09/24 09:32 DCW [id number]) Posture Evaluation Position Standing T-Spine Posture Fixed Scoliosis on (R), Increased Kyphosis L-Spine Posture Fixed Scoliosis on (L) Knee Posture (L) Excess Flexion,(R) Excess Flexion Comments Posture Comments Pt stands with bilateral knees in 10? flexion PT-OP-M Strength Start: 03/08/24 14:26 Freq: Status: Active Protocol: Document 03/08/24 09:45 DCW (Rec: 03/08/24 16:47 DCW [id number]) Hip Strength Hip Manual Muscle Testing Right Flexion (L2) 3+ Fair+ Abduction 3+ Fair+ Adduction 4- Good- External Rotation 4- Good- Internal Rotation 4- Good- Left Flexion (L2) 3+ Fair+ Abduction 3+ Fair+ Adduction 4- Good- External Rotation 4- Good- Internal Rotation 4- Good- Knee Strength Knee Manual Muscle Testing Right Flexion (S2) 4 Good Extension (L3) 3 Fair Left Flexion (S2) 4 Good Extension (L3) 3+ Fair+ Ankle/Foot Strength Ankle and Foot Manual Muscle Testing Right Dorsiflexion (L4) 4 Good Left Dorsiflexion (L4) 4 Good PT-OP-Q Treatments Start: 03/08/24 14:26 Freq: Status: Active Protocol: Document 03/18/24 08:07 AB (Rec: 03/18/24 09:01 AB [id number]) Gym Equipment Shuttle Recovery Unilateral Squats Resistance 37# Shuttle Recovery Platform Stable Reps/Time X15 each LE Bilateral Squats Details VC feet shoulder width apart Resistance 62# Shuttle Recovery Platform Stable Reps/Time 15 X 2 Therapeutic Exercises Sitting Exercises HS stretch Sitting Exercise Name LE resting on stool and then resting on 6 inch mike Reps/Minutes 4 min seated hip abduction with band Resistance level 3 green band Reps/Minutes X25 Standing Exercises bilateral heel raise Side bilateral Reps/Minutes X15 Comments VC to lower heels to floor slowly Other Exercises Resisted Ambulation Other Exercise Name Resisted side-stepping Resistance Lv 2 loop Therapeutic Activity Therapeutic Activity posture check back to wall Comments verbal cues to straighten knees 10%, slight chin tuck ( visual cues) and to hold posture when stepping away from wall Manual Therapy Treatment Consent Patient gave verbal consent for manual Yes treatment Soft Tissue Mobilization left knee Body Location areas inc density dec mobility , HS and for swelling Mobilization Type Cross-Friction,Rolling,Other Intensity/Depth Moderate Body Position Sitting Neuro Re-Education Treatment Balance Activities SLS Reps/Duration X3 X 2 each LE Comments CGA step up taps Equipment 6 inch step Reps/Duration X14 Comments CGA Tandem Details Tandem Gait Equipment // bars Reps/Duration 10 FEET x 6 CGA PT-OP-T Assessment and Plan Start: 03/08/24 14:26 Freq: Status: Active Protocol: Document 03/18/24 08:07 AB (Rec: 03/18/24 09:01 AB [id number]) Physical Therapy Assessment Goals Three Impairment Poor posture secondary to scoliosis and inability to fully extend knees [facility] Goal (LTG) Pt to demonstrate ability to stand with knees in 0? extension >75% of the time with no cues in order to improve ability to keep center of gravity over base of support. LTG Duration 06/06/24 Two Impairment Pt presents as a significant falls risk, per Yee (35/56) and DGI (05/23) [facility] Goal (LTG) Pt to exhibit a decrease in risk of falls by improving DGI score by at least five points to LTG Duration 06/06/24 One Impairment Pt does not have an appropriate home exercise program Short Term Goal (STG) Pt to be independent and compliant with an appropriate HEP STG Duration 04/07/24 Assessment Summary Assessment Patient reports leg press was easier today and comments picking LE up as if to step over juan manuel is easier end of session. Physical Therapy Plan Frequency and Duration Frequency of Treatment 2x/Week Plan of Care Start Date 03/08/24 Plan of Care End Date 06/06/24 Next Visit Focus/Plan Next Note Type Treatment Note Next Visit Plan LE strengthening, posture exercises, balance challenges
--- NOTE | 2024-04-05 16:44 | PT.OTN ---
Current Diagnoses Unsteadiness on feet (04/05/24) Other abnormalities of gait and mobility (04/05/24) Repeated falls (04/05/24) Physical Therapy Treatment Note PT-OP-A Visit Information Start: 03/08/24 14:26 Freq: Status: Active Protocol: Document 04/05/24 16:00 DCW (Rec: 04/05/24 16:44 DCW [id number]) Out-Patient Physical Therapy Visit Information Visit Information Visit Type Treatment Note Visit Start Time 16:00 Visit Stop Time 16:40 Visit Number 5 Number of GLOBAL MARKETING OPERATIONS MANAGER Visits 0 Evaluation Information Evaluation Date 03/08/24 PT-OP-B Current Condition Start: 03/08/24 14:26 Freq: Status: Active Protocol: Document 03/08/24 09:45 DCW (Rec: 03/08/24 17:54 DCW [id number]) Current Condition History of Current Condition Onset Date Long-standing history Current Complaints Poor balance, worsening posture, falls, weakness History of Current Condition Pt is an 78 year old female presenting with a long- standing history of poor balance, weakness, falls. Pt was previously treated at this clinic ~2.5 years ago for similar concerns with good results, however pt notes that she feels like she is much worse at this point. Has suffered three falls over the past three months, feels like it has mostly been due to catching her feet or walking on uneven surfaces. Does not use any assistive device, but I feel a lot better when I'm using a shopping cart. Does have a history of scoliosis and overall poor posture, but feels it is worsening. PT-OP-C Subjective Start: 03/08/24 14:26 Freq: Status: Active Protocol: Document 04/05/24 16:00 DCW (Rec: 04/05/24 16:44 DCW [id number]) OP-PT Subjective Patient Comments Patient Comments Pt returns to PT after missing a few weeks due to illness. Feeling better overall. PT-OP-D Balance Start: 03/08/24 14:26 Freq: Status: Active Protocol: Document 03/08/24 09:45 DCW (Rec: 03/08/24 16:47 DCW [id number]) Balance Tests Yee Balance Test Yee Balance Test Score 35/56 Yee Impairment Rating 20 to 39% Impaired (Score 34- 44) Yee Balance Assessment Evaluation Sitting to Standing Ability Independent w/Hands Unsupported Stance Safely- 2 minutes Sitting Unsupported, Feet on Floor Safely- 2 minutes Standing to Sitting Ability Independent, Uncontrolled Transfer Ability Safely, Hand Use Unsupported Stance- Eyes Closed 3 seconds Unsupported Stance- Eyes Open Independent, <30 seconds Reaching Forward Standing Safely, 5 inches Pick- Up Object From Floor Supervision Look Behind Shoulder - Standing Turns Sideways Only Turning 360 Degrees Turns slowly, but safely Unsupported Stance, Alternating Feet on 4 Steps w/Supervision Stair Unsupported Tandem Stance Holds Tandem- 30 seconds Unilateral Leg Stance Lifts Leg/Unable to Hold Total Score Yee Total Score (out of 56 points) 35 Yee Impairment Rating 20 to 39% Impaired (Score 34- 44) PT-OP-E Functional Tests Start: 03/08/24 14:26 Freq: Status: Active Protocol: Document 03/08/24 09:45 DCW (Rec: 03/08/24 16:47 DCW [id number]) Functional Tests Dynamic Gait Index (DGI) Score 05/23 DGI Impairment Rating 40 to <60% Impaired (Score 10- 14) PT-OP-J Posture/Palpation/Skin Start: 03/08/24 17:54 Freq: Status: Active Protocol: Document 03/08/24 09:45 DCW (Rec: 03/09/24 09:32 DCW [id number]) Posture Evaluation Position Standing T-Spine Posture Fixed Scoliosis on (R), Increased Kyphosis L-Spine Posture Fixed Scoliosis on (L) Knee Posture (L) Excess Flexion,(R) Excess Flexion Comments Posture Comments Pt stands with bilateral knees in 10? flexion PT-OP-M Strength Start: 03/08/24 14:26 Freq: Status: Active Protocol: Document 03/08/24 09:45 DCW (Rec: 03/08/24 16:47 DCW [id number]) Hip Strength Hip Manual Muscle Testing Right Flexion (L2) 3+ Fair+ Abduction 3+ Fair+ Adduction 4- Good- External Rotation 4- Good- Internal Rotation 4- Good- Left Flexion (L2) 3+ Fair+ Abduction 3+ Fair+ Adduction 4- Good- External Rotation 4- Good- Internal Rotation 4- Good- Knee Strength Knee Manual Muscle Testing Right Flexion (S2) 4 Good Extension (L3) 3 Fair Left Flexion (S2) 4 Good Extension (L3) 3+ Fair+ Ankle/Foot Strength Ankle and Foot Manual Muscle Testing Right Dorsiflexion (L4) 4 Good Left Dorsiflexion (L4) 4 Good PT-OP-Q Treatments Start: 03/08/24 14:26 Freq: Status: Active Protocol: Document 04/05/24 16:00 DCW (Rec: 04/05/24 16:44 DCW [id number]) Cardio Equipment Recumbent Elliptical (Biodex) Duration (Minutes) 6 Resistance 5 Seat Position 8 Gym Equipment Shuttle Recovery Unilateral Squats Resistance 37# L, 25# R Shuttle Recovery Platform Stable Bilateral Squats Resistance 62# Shuttle Recovery Platform Stable Shuttle Balance red clips Details WBOS, Staggered Therapeutic Exercises Standing Exercises Hip Extension Standing Exercise Name Hip Extension Side bilateral Resistance Green loop Other Exercises Step-ups Other Exercise Name Step-ups Resistance 6 step Resisted Ambulation Other Exercise Name Resisted side-stepping Resistance Green loop Neuro Re-Education Treatment Balance Activities Ball/cone transfers Details Ball/cone transfers Tandem Details Tandem Gait Equipment // bars Reps/Duration 10'x6 Comments Fwd/Bkwd Hurdles Details Hurdles Comments Fwd, Side-stepping PT-OP-T Assessment and Plan Start: 03/08/24 14:26 Freq: Status: Active Protocol: Document 04/05/24 16:00 DCW (Rec: 04/05/24 16:44 DCW [id number]) Physical Therapy Assessment Impairments Impairments Activity Tolerance,Balance, Functional Activities, Functional Mobility,Posture, Soft Tissue Mobility,Strength Goals Three Impairment Poor posture secondary to scoliosis and inability to fully extend knees Vice President Global Advertising Sales Goal (LTG) Pt to demonstrate ability to stand with knees in 0? extension >75% of the time with no cues in order to improve ability to keep center of gravity over base of support. LTG Duration 06/06/24 Two Impairment Pt presents as a significant falls risk, per Yee (35/56) and DGI (05/23) Vice President [employer] Ad[employer] Sales Goal (LTG) Pt to exhibit a decrease in risk of falls by improving DGI score by at least five points to LTG Duration 06/06/24 One Impairment Pt does not have an appropriate home exercise program Short Term Goal (STG) Pt to be independent and compliant with an appropriate HEP STG Duration 04/07/24 Assessment Summary Assessment Pt did well today, showing some improvement with left foot clearance during hurdles. Continue to challenge balance and work on LE strengthening. Physical Therapy Plan Frequency and Duration Frequency of Treatment 2x/Week Plan of Care Start Date 03/08/24 Plan of Care End Date 06/06/24 Therapeutic Interventions Therapeutic Interventions Balance Training,Home Exercise Program,Joint Mobilizations, Manual Therapy,Neuromuscular Re-education,Patient/Caregiver Education,Self-Care/Home Management,Soft Tissue Mobilization,Therapeutic Activities,Therapeutic Exercises Next Visit Focus/Plan Next Note Type Treatment Note Next Visit Plan LE strengthening, posture exercises, balance challenges
--- NOTE | 2024-04-06 08:59 | PT.OTN ---
Current Diagnoses Unsteadiness on feet (04/06/24) Other abnormalities of gait and mobility (04/06/24) Repeated falls (04/06/24) Physical Therapy Treatment Note PT-OP-A Visit Information Start: 03/08/24 14:26 Freq: Status: Active Protocol: Document 04/06/24 08:21 SP (Rec: 04/06/24 09:02 SP [id number]) Out-Patient Physical Therapy Visit Information Visit Information Visit Type Treatment Note Visit Start Time 08:21 Visit Stop Time 08:59 Visit Number 6 Number of DIVIDEND DEPOSIT ENTRY CLERK Visits 1 Evaluation Information Evaluation Date 03/08/24 PT-OP-B Current Condition Start: 03/08/24 14:26 Freq: Status: Active Protocol: Document 03/08/24 09:45 DCW (Rec: 03/08/24 17:54 DCW [id number]) Current Condition History of Current Condition Onset Date Long-standing history Current Complaints Poor balance, worsening posture, falls, weakness History of Current Condition Pt is an 78 year old female presenting with a long- standing history of poor balance, weakness, falls. Pt was previously treated at this clinic ~2.5 years ago for similar concerns with good results, however pt notes that she feels like she is much worse at this point. Has suffered three falls over the past three months, feels like it has mostly been due to catching her feet or walking on uneven surfaces. Does not use any assistive device, but I feel a lot better when I'm using a shopping cart. Does have a history of scoliosis and overall poor posture, but feels it is worsening. PT-OP-C Subjective Start: 03/08/24 14:26 Freq: Status: Active Protocol: Document 04/06/24 08:21 SP (Rec: 04/06/24 09:02 SP [id number]) OP-PT Subjective Patient Comments Patient Comments Pt reports little sore after last tx. She stated has a CT scan after PT today. She is having sacral injection next week. PT-OP-D Balance Start: 03/08/24 14:26 Freq: Status: Active Protocol: Document 03/08/24 09:45 DCW (Rec: 03/08/24 16:47 DCW [id number]) Balance Tests Yee Balance Test Yee Balance Test Score 35/56 Yee Impairment Rating 20 to 39% Impaired (Score 34- 44) Yee Balance Assessment Evaluation Sitting to Standing Ability Independent w/Hands Unsupported Stance Safely- 2 minutes Sitting Unsupported, Feet on Floor Safely- 2 minutes Standing to Sitting Ability Independent, Uncontrolled Transfer Ability Safely, Hand Use Unsupported Stance- Eyes Closed 3 seconds Unsupported Stance- Eyes Open Independent, <30 seconds Reaching Forward Standing Safely, 5 inches Pick- Up Object From Floor Supervision Look Behind Shoulder - Standing Turns Sideways Only Turning 360 Degrees Turns slowly, but safely Unsupported Stance, Alternating Feet on 4 Steps w/Supervision Stair Unsupported Tandem Stance Holds Tandem- 30 seconds Unilateral Leg Stance Lifts Leg/Unable to Hold Total Score Yee Total Score (out of 56 points) 35 Yee Impairment Rating 20 to 39% Impaired (Score 34- 44) PT-OP-E Functional Tests Start: 03/08/24 14:26 Freq: Status: Active Protocol: Document 03/08/24 09:45 DCW (Rec: 03/08/24 16:47 DCW [id number]) Functional Tests Dynamic Gait Index (DGI) Score 05/23 DGI Impairment Rating 40 to <60% Impaired (Score 10- 14) PT-OP-J Posture/Palpation/Skin Start: 03/08/24 17:54 Freq: Status: Active Protocol: Document 03/08/24 09:45 DCW (Rec: 03/09/24 09:32 DCW [id number]) Posture Evaluation Position Standing T-Spine Posture Fixed Scoliosis on (R), Increased Kyphosis L-Spine Posture Fixed Scoliosis on (L) Knee Posture (L) Excess Flexion,(R) Excess Flexion Comments Posture Comments Pt stands with bilateral knees in 10? flexion PT-OP-M Strength Start: 03/08/24 14:26 Freq: Status: Active Protocol: Document 03/08/24 09:45 DCW (Rec: 03/08/24 16:47 DCW [id number]) Hip Strength Hip Manual Muscle Testing Right Flexion (L2) 3+ Fair+ Abduction 3+ Fair+ Adduction 4- Good- External Rotation 4- Good- Internal Rotation 4- Good- Left Flexion (L2) 3+ Fair+ Abduction 3+ Fair+ Adduction 4- Good- External Rotation 4- Good- Internal Rotation 4- Good- Knee Strength Knee Manual Muscle Testing Right Flexion (S2) 4 Good Extension (L3) 3 Fair Left Flexion (S2) 4 Good Extension (L3) 3+ Fair+ Ankle/Foot Strength Ankle and Foot Manual Muscle Testing Right Dorsiflexion (L4) 4 Good Left Dorsiflexion (L4) 4 Good PT-OP-Q Treatments Start: 03/08/24 14:26 Freq: Status: Active Protocol: Document 04/06/24 08:21 SP (Rec: 04/06/24 09:02 SP [id number]) Gym Equipment Shuttle Recovery Unilateral Squats Details block 90 deg knee flexion- cued knee vier lateral midline Resistance 37# (teal) L, 25# (navy) R Shuttle Recovery Platform Stable Reps/Time x20 each Bilateral Squats Details block 90 deg knee flexion Resistance 62# to hard 10/8, 50 # 2 teal> 62# 2 teal +parker Shuttle Recovery Platform Stable Reps/Time 20 reps each resistance Therapeutic Exercises Sitting Exercises seated hip abduction with band Sitting Exercise Name reviewed for home (has HO) Side bilateral Resistance level 3 green band at thighs, feet together Reps/Minutes 30 SH x3, x25 reps Comments reports good muscle tiring Other Exercises Step-ups Other Exercise Name Step-up/back down Side bilateral Resistance AROM Equipment Used prn //bar (x1), 6 step Reps/Minutes 10 reps each LE lead Comments cued decrease stride back step down. Resisted Ambulation Other Exercise Name Resisted side-stepping- Side bilateral Resistance [place] green loop at shins vs thighs AROm home around [place] Equipment Used //bars Reps/Minutes 10x3 reps Comments cued trail LE clearance PT-OP-T Assessment and Plan Start: 03/08/24 14:26 Freq: Status: Active Protocol: Document 04/06/24 08:21 SP (Rec: 04/06/24 09:02 SP [id number]) Physical Therapy Assessment Goals Three Impairment Poor posture secondary to scoliosis and inability to fully extend knees Senior Care Goal (LTG) Pt to demonstrate ability to stand with knees in 0? extension >75% of the time with no cues in order to improve ability to keep center of gravity over base of support. LTG Duration 06/06/24 Two Impairment Pt presents as a significant falls risk, per Yee (35/56) and DGI (05/23) Unit Technician Goal (LTG) Pt to exhibit a decrease in risk of falls by improving DGI score by at least five points to 16/24 LTG Duration 06/06/24 One Impairment Pt does not have an appropriate home exercise program Short Term Goal (STG) Pt to be independent and compliant with an appropriate HEP STG Duration 04/07/24 Assessment Summary Assessment Pt tolerated ther ex well today. Adjusted resistance on shuttle recovery with cues for knee alignment for hip abd engagment and limit knee flexion range tolerance. Updated resisted seated abduction to isometric hold to increased hip abd engagment with good tolerance response. Pt was ableto complete step ups without UE support, cued x2 for decrease step back stride for safety toe clearance step improved form with reps. Physical Therapy Plan Frequency and Duration Frequency of Treatment 2x/Week Plan of Care Start Date 03/08/24 Plan of Care End Date 06/06/24 Therapeutic Interventions Therapeutic Interventions Balance Training,Home Exercise Program,Joint Mobilizations, Manual Therapy,Neuromuscular Re-education,Patient/Caregiver Education,Self-Care/Home Management,Soft Tissue Mobilization,Therapeutic Activities,Therapeutic Exercises Next Visit Focus/Plan Next Note Type Treatment Note Next Visit Plan Assess if safe add TB at shins for home resisted side stepping. POC: LE strengthening, posture exercises, balance challenges
--- NOTE | 2024-04-13 17:37 | PT.OTN ---
Current Diagnoses Unsteadiness on feet (04/13/24) Other abnormalities of gait and mobility (04/13/24) Repeated falls (04/13/24) Physical Therapy Treatment Note PT-OP-A Visit Information Start: 03/08/24 14:26 Freq: Status: Active Protocol: Document 04/13/24 16:55 DCW (Rec: 04/13/24 17:37 DCW [id number]) Out-Patient Physical Therapy Visit Information Visit Information Visit Type Treatment Note Visit Start Time 16:55 Visit Stop Time 17:40 Visit Number 7 Number of PROCESS ENVIRONMENTAL TECHNICIAN Visits 0 Evaluation Information Evaluation Date 03/08/24 PT-OP-B Current Condition Start: 03/08/24 14:26 Freq: Status: Active Protocol: Document 03/08/24 09:45 DCW (Rec: 03/08/24 17:54 DCW [id number]) Current Condition History of Current Condition Onset Date Long-standing history Current Complaints Poor balance, worsening posture, falls, weakness History of Current Condition Pt is an 78 year old female presenting with a long- standing history of poor balance, weakness, falls. Pt was previously treated at this clinic ~2.5 years ago for similar concerns with good results, however pt notes that she feels like she is much worse at this point. Has suffered three falls over the past three months, feels like it has mostly been due to catching her feet or walking on uneven surfaces. Does not use any assistive device, but I feel a lot better when I'm using a shopping cart. Does have a history of scoliosis and overall poor posture, but feels it is worsening. PT-OP-C Subjective Start: 03/08/24 14:26 Freq: Status: Active Protocol: Document 04/13/24 16:55 DCW (Rec: 04/13/24 17:37 DCW [id number]) OP-PT Subjective Patient Comments Patient Comments Pt notes she is feeling better today. Had her final injection , which means I can get up easier. PT-OP-D Balance Start: 03/08/24 14:26 Freq: Status: Active Protocol: Document 03/08/24 09:45 DCW (Rec: 03/08/24 16:47 DCW [id number]) Balance Tests Yee Balance Test Yee Balance Test Score 35/56 Yee Impairment Rating 20 to 39% Impaired (Score 34- 44) Yee Balance Assessment Evaluation Sitting to Standing Ability Independent w/Hands Unsupported Stance Safely- 2 minutes Sitting Unsupported, Feet on Floor Safely- 2 minutes Standing to Sitting Ability Independent, Uncontrolled Transfer Ability Safely, Hand Use Unsupported Stance- Eyes Closed 3 seconds Unsupported Stance- Eyes Open Independent, <30 seconds Reaching Forward Standing Safely, 5 inches Pick- Up Object From Floor Supervision Look Behind Shoulder - Standing Turns Sideways Only Turning 360 Degrees Turns slowly, but safely Unsupported Stance, Alternating Feet on 4 Steps w/Supervision Stair Unsupported Tandem Stance Holds Tandem- 30 seconds Unilateral Leg Stance Lifts Leg/Unable to Hold Total Score Yee Total Score (out of 56 points) 35 Yee Impairment Rating 20 to 39% Impaired (Score 34- 44) PT-OP-E Functional Tests Start: 03/08/24 14:26 Freq: Status: Active Protocol: Document 03/08/24 09:45 DCW (Rec: 03/08/24 16:47 DCW [id number]) Functional Tests Dynamic Gait Index (DGI) Score 05/23 DGI Impairment Rating 40 to <60% Impaired (Score 10- 14) PT-OP-J Posture/Palpation/Skin Start: 03/08/24 17:54 Freq: Status: Active Protocol: Document 03/08/24 09:45 DCW (Rec: 03/09/24 09:32 DCW [id number]) Posture Evaluation Position Standing T-Spine Posture Fixed Scoliosis on (R), Increased Kyphosis L-Spine Posture Fixed Scoliosis on (L) Knee Posture (L) Excess Flexion,(R) Excess Flexion Comments Posture Comments Pt stands with bilateral knees in 10? flexion PT-OP-M Strength Start: 03/08/24 14:26 Freq: Status: Active Protocol: Document 03/08/24 09:45 DCW (Rec: 03/08/24 16:47 DCW [id number]) Hip Strength Hip Manual Muscle Testing Right Flexion (L2) 3+ Fair+ Abduction 3+ Fair+ Adduction 4- Good- External Rotation 4- Good- Internal Rotation 4- Good- Left Flexion (L2) 3+ Fair+ Abduction 3+ Fair+ Adduction 4- Good- External Rotation 4- Good- Internal Rotation 4- Good- Knee Strength Knee Manual Muscle Testing Right Flexion (S2) 4 Good Extension (L3) 3 Fair Left Flexion (S2) 4 Good Extension (L3) 3+ Fair+ Ankle/Foot Strength Ankle and Foot Manual Muscle Testing Right Dorsiflexion (L4) 4 Good Left Dorsiflexion (L4) 4 Good PT-OP-Q Treatments Start: 03/08/24 14:26 Freq: Status: Active Protocol: Document 04/13/24 16:55 DCW (Rec: 04/13/24 17:37 DCW [id number]) Cardio Equipment Recumbent Elliptical (Biodex) Duration (Minutes) 6 Resistance 5 Seat Position 8 Gym Equipment Shuttle Recovery Unilateral Squats Resistance 37# L, 25# R Shuttle Recovery Platform Stable Bilateral Squats Resistance 62# Shuttle Recovery Platform Stable Shuttle Balance red clips Details WBOS, Staggered Therapeutic Exercises Other Exercises Resisted Ambulation Other Exercise Name Resisted side-stepping Resistance Green loop Equipment Used // Bars Neuro Re-Education Treatment Balance Activities Dynamic Gait Details Hallway ambulation Comments Head turns (90 bpm) Retro Ambulation Tandem Gait Foam Details EO/EC, Head turns Surface AirEx PT-OP-T Assessment and Plan Start: 03/08/24 14:26 Freq: Status: Active Protocol: Document 04/13/24 16:55 DCW (Rec: 04/13/24 17:37 DCW [id number]) Physical Therapy Assessment Impairments Impairments Activity Tolerance,Balance, Functional Activities, Functional Mobility,Posture, Soft Tissue Mobility,Strength Goals Three Impairment Poor posture secondary to scoliosis and inability to fully extend knees [facility] Goal (LTG) Pt to demonstrate ability to stand with knees in 0? extension >75% of the time with no cues in order to improve ability to keep center of gravity over base of support. LTG Duration 06/06/24 Two Impairment Pt presents as a significant falls risk, per Yee (35/56) and DGI (05/23) Supervisor [employer] Goal (LTG) Pt to exhibit a decrease in risk of falls by improving DGI score by at least five points to LTG Duration 06/06/24 One Impairment Pt does not have an appropriate home exercise program Short Term Goal (STG) Pt to be independent and compliant with an appropriate HEP STG Duration 04/07/24 Assessment Summary Assessment Pt demonstrates good response to balance challenges, doing much better with stabilization with head turns. Continue to work on balance, gait, and LE strengthening. Physical Therapy Plan Frequency and Duration Frequency of Treatment 2x/Week Plan of Care Start Date 03/08/24 Plan of Care End Date 06/06/24 Therapeutic Interventions Therapeutic Interventions Balance Training,Home Exercise Program,Joint Mobilizations, Manual Therapy,Neuromuscular Re-education,Patient/Caregiver Education,Self-Care/Home Management,Soft Tissue Mobilization,Therapeutic Activities,Therapeutic Exercises Next Visit Focus/Plan Next Note Type Treatment Note Next Visit Plan Assess if safe add TB at shins for home resisted side stepping. POC: LE strengthening, posture exercises, balance challenges
--- NOTE | 2024-04-15 09:00 | PT.OTN ---
Current Diagnoses Unsteadiness on feet (04/15/24) Other abnormalities of gait and mobility (04/15/24) Repeated falls (04/15/24) Physical Therapy Treatment Note PT-OP-A Visit Information Start: 03/08/24 14:26 Freq: Status: Active Protocol: Document 04/15/24 08:20 SP (Rec: 04/15/24 09:04 SP [id number]) Out-Patient Physical Therapy Visit Information Visit Information Visit Type Treatment Note Visit Start Time 08:20 Visit Stop Time 09:00 Visit Number 8 Number of PAPER PATTERN INSPECTOR Visits 1 Evaluation Information Evaluation Date 03/08/24 PT-OP-B Current Condition Start: 03/08/24 14:26 Freq: Status: Active Protocol: Document 03/08/24 09:45 DCW (Rec: 03/08/24 17:54 DCW [id number]) Current Condition History of Current Condition Onset Date Long-standing history Current Complaints Poor balance, worsening posture, falls, weakness History of Current Condition Pt is an 78 year old female presenting with a long- standing history of poor balance, weakness, falls. Pt was previously treated at this clinic ~2.5 years ago for similar concerns with good results, however pt notes that she feels like she is much worse at this point. Has suffered three falls over the past three months, feels like it has mostly been due to catching her feet or walking on uneven surfaces. Does not use any assistive device, but I feel a lot better when I'm using a shopping cart. Does have a history of scoliosis and overall poor posture, but feels it is worsening. PT-OP-C Subjective Start: 03/08/24 14:26 Freq: Status: Active Protocol: Document 04/15/24 08:20 SP (Rec: 04/15/24 09:04 SP [id number]) OP-PT Subjective Patient Comments Patient Comments Pt reports little tired after last appt but was later in the day. REports is able to sit < > stand without UE support now without pain. PT-OP-D Balance Start: 03/08/24 14:26 Freq: Status: Active Protocol: Document 03/08/24 09:45 DCW (Rec: 03/08/24 16:47 DCW [id number]) Balance Tests Yee Balance Test Yee Balance Test Score 35/56 Yee Impairment Rating 20 to 39% Impaired (Score 34- 44) Yee Balance Assessment Evaluation Sitting to Standing Ability Independent w/Hands Unsupported Stance Safely- 2 minutes Sitting Unsupported, Feet on Floor Safely- 2 minutes Standing to Sitting Ability Independent, Uncontrolled Transfer Ability Safely, Hand Use Unsupported Stance- Eyes Closed 3 seconds Unsupported Stance- Eyes Open Independent, <30 seconds Reaching Forward Standing Safely, 5 inches Pick- Up Object From Floor Supervision Look Behind Shoulder - Standing Turns Sideways Only Turning 360 Degrees Turns slowly, but safely Unsupported Stance, Alternating Feet on 4 Steps w/Supervision Stair Unsupported Tandem Stance Holds Tandem- 30 seconds Unilateral Leg Stance Lifts Leg/Unable to Hold Total Score Yee Total Score (out of 56 points) 35 Yee Impairment Rating 20 to 39% Impaired (Score 34- 44) PT-OP-E Functional Tests Start: 03/08/24 14:26 Freq: Status: Active Protocol: Document 03/08/24 09:45 DCW (Rec: 03/08/24 16:47 DCW [id number]) Functional Tests Dynamic Gait Index (DGI) Score 05/23 DGI Impairment Rating 40 to <60% Impaired (Score 10- 14) PT-OP-J Posture/Palpation/Skin Start: 03/08/24 17:54 Freq: Status: Active Protocol: Document 03/08/24 09:45 DCW (Rec: 03/09/24 09:32 DCW [id number]) Posture Evaluation Position Standing T-Spine Posture Fixed Scoliosis on (R), Increased Kyphosis L-Spine Posture Fixed Scoliosis on (L) Knee Posture (L) Excess Flexion,(R) Excess Flexion Comments Posture Comments Pt stands with bilateral knees in 10? flexion PT-OP-M Strength Start: 03/08/24 14:26 Freq: Status: Active Protocol: Document 03/08/24 09:45 DCW (Rec: 03/08/24 16:47 DCW [id number]) Hip Strength Hip Manual Muscle Testing Right Flexion (L2) 3+ Fair+ Abduction 3+ Fair+ Adduction 4- Good- External Rotation 4- Good- Internal Rotation 4- Good- Left Flexion (L2) 3+ Fair+ Abduction 3+ Fair+ Adduction 4- Good- External Rotation 4- Good- Internal Rotation 4- Good- Knee Strength Knee Manual Muscle Testing Right Flexion (S2) 4 Good Extension (L3) 3 Fair Left Flexion (S2) 4 Good Extension (L3) 3+ Fair+ Ankle/Foot Strength Ankle and Foot Manual Muscle Testing Right Dorsiflexion (L4) 4 Good Left Dorsiflexion (L4) 4 Good PT-OP-Q Treatments Start: 03/08/24 14:26 Freq: Status: Active Protocol: Document 04/15/24 08:20 SP (Rec: 04/15/24 09:04 SP [id number]) Cardio Equipment Recumbent Stepper (Sci-Fit) Duration (Minutes) 8 Resistance 4 at 43 RPMs Seat Position 10 Other 1.9 miles Gym Equipment Shuttle Balance red clips Details WBOS, Staggered stance Comments wt shift stationary HTs- CG- 5%A Therapeutic Exercises Standing Exercises STS /c TB Standing Exercise Name trialed in PT- discussed adding TB during ex home carryover strengthening Resistance B TB #2 at thighs Reps/Minutes x10 Comments cues for knees WBOS asc& descend Other Exercises Resisted Ambulation Other Exercise Name Resisted side-stepping Resistance [place] at shins>ankles Equipment Used // Bars Reps/Minutes 10 ft x3 laps Comments no UE support, cues DF trail LLE clearance Neuro Re-Education Treatment Balance Activities Dynamic Gait Details Hallway ambulation Comments Head turns (90 bpm) Retro Ambulation Tandem Gait CGA -slower pacing but improved posturing corrections midline back stepping. Foam Details NBOS, stride stance Surface AirEx Comments Head turns EC 30 sec each position PT-OP-T Assessment and Plan Start: 03/08/24 14:26 Freq: Status: Active Protocol: Document 04/15/24 08:20 SP (Rec: 04/15/24 09:04 SP [id number]) Physical Therapy Assessment Goals Three Impairment Poor posture secondary to scoliosis and inability to fully extend knees [employer] Operator Goal (LTG) Pt to demonstrate ability to stand with knees in 0? extension >75% of the time with no cues in order to improve ability to keep center of gravity over base of support. LTG Duration 06/06/24 Two Impairment Pt presents as a significant falls risk, per Yee (35/56) and DGI (05/23) Custodial Goal (LTG) Pt to exhibit a decrease in risk of falls by improving DGI score by at least five points to LTG Duration 06/06/24 One Impairment Pt does not have an appropriate home exercise program Short Term Goal (STG) Pt to be independent and compliant with an appropriate HEP STG Duration 04/07/24 Assessment Summary Assessment Noted slower pacing but improved postural corrections during balance activities. Was able to maintain stability with slight sways no LOB uneven stance EC activity today, CGA. Physical Therapy Plan Frequency and Duration Frequency of Treatment 2x/Week Plan of Care Start Date 03/08/24 Plan of Care End Date 06/06/24 Therapeutic Interventions Therapeutic Interventions Balance Training,Home Exercise Program,Joint Mobilizations, Manual Therapy,Neuromuscular Re-education,Patient/Caregiver Education,Self-Care/Home Management,Soft Tissue Mobilization,Therapeutic Activities,Therapeutic Exercises Next Visit Focus/Plan Next Note Type Treatment Note Next Visit Plan Continue uneven balance activiteis for progression return to boating. POC: LE strengthening, posture exercises, balance challenges
--- NOTE | 2024-04-19 08:58 | PT.OTN ---
Current Diagnoses Unsteadiness on feet (04/19/24) Other abnormalities of gait and mobility (04/19/24) Repeated falls (04/19/24) Physical Therapy Treatment Note PT-OP-A Visit Information Start: 03/08/24 14:26 Freq: Status: Active Protocol: Document 04/19/24 08:16 SP (Rec: 04/19/24 09:05 SP [id number]) Out-Patient Physical Therapy Visit Information Visit Information Visit Type Treatment Note Visit Start Time 08:16 Visit Stop Time 08:58 Visit Number 9 Number of MAT ROLLER Visits 2 Evaluation Information Evaluation Date 03/08/24 PT-OP-B Current Condition Start: 03/08/24 14:26 Freq: Status: Active Protocol: Document 03/08/24 09:45 DCW (Rec: 03/08/24 17:54 DCW [id number]) Current Condition History of Current Condition Onset Date Long-standing history Current Complaints Poor balance, worsening posture, falls, weakness History of Current Condition Pt is an 78 year old female presenting with a long- standing history of poor balance, weakness, falls. Pt was previously treated at this clinic ~2.5 years ago for similar concerns with good results, however pt notes that she feels like she is much worse at this point. Has suffered three falls over the past three months, feels like it has mostly been due to catching her feet or walking on uneven surfaces. Does not use any assistive device, but I feel a lot better when I'm using a shopping cart. Does have a history of scoliosis and overall poor posture, but feels it is worsening. PT-OP-C Subjective Start: 03/08/24 14:26 Freq: Status: Active Protocol: Document 04/19/24 08:16 SP (Rec: 04/19/24 09:05 SP [id number]) OP-PT Subjective Patient Comments Patient Comments Pt reports her back has been bothersome more in morning when wakes up SI Jt on L. She thinks the injection has helped got 2 weeks ago. PT-OP-D Balance Start: 03/08/24 14:26 Freq: Status: Active Protocol: Document 03/08/24 09:45 DCW (Rec: 03/08/24 16:47 DCW [id number]) Balance Tests Yee Balance Test Yee Balance Test Score 35/56 Yee Impairment Rating 20 to 39% Impaired (Score 34- 44) Yee Balance Assessment Evaluation Sitting to Standing Ability Independent w/Hands Unsupported Stance Safely- 2 minutes Sitting Unsupported, Feet on Floor Safely- 2 minutes Standing to Sitting Ability Independent, Uncontrolled Transfer Ability Safely, Hand Use Unsupported Stance- Eyes Closed 3 seconds Unsupported Stance- Eyes Open Independent, <30 seconds Reaching Forward Standing Safely, 5 inches Pick- Up Object From Floor Supervision Look Behind Shoulder - Standing Turns Sideways Only Turning 360 Degrees Turns slowly, but safely Unsupported Stance, Alternating Feet on 4 Steps w/Supervision Stair Unsupported Tandem Stance Holds Tandem- 30 seconds Unilateral Leg Stance Lifts Leg/Unable to Hold Total Score Yee Total Score (out of 56 points) 35 Yee Impairment Rating 20 to 39% Impaired (Score 34- 44) PT-OP-E Functional Tests Start: 03/08/24 14:26 Freq: Status: Active Protocol: Document 03/08/24 09:45 DCW (Rec: 03/08/24 16:47 DCW [id number]) Functional Tests Dynamic Gait Index (DGI) Score 05/23 DGI Impairment Rating 40 to <60% Impaired (Score 10- 14) PT-OP-J Posture/Palpation/Skin Start: 03/08/24 17:54 Freq: Status: Active Protocol: Document 03/08/24 09:45 DCW (Rec: 03/09/24 09:32 DCW [id number]) Posture Evaluation Position Standing T-Spine Posture Fixed Scoliosis on (R), Increased Kyphosis L-Spine Posture Fixed Scoliosis on (L) Knee Posture (L) Excess Flexion,(R) Excess Flexion Comments Posture Comments Pt stands with bilateral knees in 10? flexion PT-OP-M Strength Start: 03/08/24 14:26 Freq: Status: Active Protocol: Document 03/08/24 09:45 DCW (Rec: 03/08/24 16:47 DCW [id number]) Hip Strength Hip Manual Muscle Testing Right Flexion (L2) 3+ Fair+ Abduction 3+ Fair+ Adduction 4- Good- External Rotation 4- Good- Internal Rotation 4- Good- Left Flexion (L2) 3+ Fair+ Abduction 3+ Fair+ Adduction 4- Good- External Rotation 4- Good- Internal Rotation 4- Good- Knee Strength Knee Manual Muscle Testing Right Flexion (S2) 4 Good Extension (L3) 3 Fair Left Flexion (S2) 4 Good Extension (L3) 3+ Fair+ Ankle/Foot Strength Ankle and Foot Manual Muscle Testing Right Dorsiflexion (L4) 4 Good Left Dorsiflexion (L4) 4 Good PT-OP-Q Treatments Start: 03/08/24 14:26 Freq: Status: Active Protocol: Document 04/19/24 08:16 SP (Rec: 04/19/24 09:05 SP [id number]) Cardio Equipment Recumbent Stepper (Sci-Fit) Duration (Minutes) 8 Resistance 4 at 43-45 RPMs Seat Position 10 Other 1.8 miles Gym Equipment Shuttle Balance red clips Details WBOS 4s, Staggered stance Comments wt shift stationary /c HTs- CG- 10%A Therapeutic Exercises Supine Exercises HS isometric MET Post Rot Supine Exercise Name added to HEP- self pelvic realignment- /c HO Side left Equipment Used therapist resist then self use towel behind thigh Reps/Minutes 5 SH x5 reps Comments improved diminish L hip pain Standing Exercises resisted Shld ext semi tandem stance Standing Exercise Name added to HEP- semitandem Side bilateral Resistance TB #1 anchored elbow height Reps/Minutes 10 reps 2 SH, each both foot position Comments improved posture, TA and slight balance challenge Manual Therapy Treatment Consent Patient gave verbal consent for manual Yes treatment Soft Tissue Mobilization L hip Body Location L QL, piriformis, MET HS isometric post tilt Mobilization Type Rolling,Sustained Pressure, Other Comments L pelvis higher than R at arrival- reports no L hip/SI pain post gentle STMs and MET isometric HS 90/90 and ed self application /c use towel PT-OP-T Assessment and Plan Start: 03/08/24 14:26 Freq: Status: Active Protocol: Document 04/19/24 08:16 SP (Rec: 04/19/24 09:05 SP [id number]) Physical Therapy Assessment Goals Three Impairment Poor posture secondary to scoliosis and inability to fully extend knees Nursing Home Goal (LTG) Pt to demonstrate ability to stand with knees in 0? extension >75% of the time with no cues in order to improve ability to keep center of gravity over base of support. LTG Duration 06/06/24 Two Impairment Pt presents as a significant falls risk, per Yee (35/56) and DGI (05/23) Nursing Home Goal (LTG) Pt to exhibit a decrease in risk of falls by improving DGI score by at least five points to 16/24 LTG Duration 06/06/24 One Impairment Pt does not have an appropriate home exercise program Short Term Goal (STG) Pt to be independent and compliant with an appropriate HEP STG Duration 04/07/24 Assessment Summary Assessment Pt reports diminished LBP post manual and good response to self MET posterior L pelvis rotation for carryover home. Instructed posture/core/slight balance to HEP resisted shld ext with good feedback response and performance. Cues for postural corrections during shuttle balance, continues need Min A for safe support. Ed end tx carryover posture for back support gait. Physical Therapy Plan Frequency and Duration Frequency of Treatment 2x/Week Plan of Care Start Date 03/08/24 Plan of Care End Date 06/06/24 Therapeutic Interventions Therapeutic Interventions Balance Training,Home Exercise Program,Joint Mobilizations, Manual Therapy,Neuromuscular Re-education,Patient/Caregiver Education,Self-Care/Home Management,Soft Tissue Mobilization,Therapeutic Activities,Therapeutic Exercises Next Visit Focus/Plan Next Note Type Treatment Note Next Visit Plan Continue uneven balance activiteis for progression return to boating. POC: LE strengthening, posture exercises, balance challenges
--- NOTE | 2024-04-26 08:57 | PT.OTN ---
Current Diagnoses Unsteadiness on feet (04/26/24) Other abnormalities of gait and mobility (04/26/24) Repeated falls (04/26/24) Physical Therapy Treatment Note PT-OP-A Visit Information Start: 03/08/24 14:26 Freq: Status: Active Protocol: Document 04/26/24 08:17 SP (Rec: 04/26/24 09:02 SP [id number]) Out-Patient Physical Therapy Visit Information Visit Information Visit Type Treatment Note Visit Start Time 08:17 Visit Stop Time 08:57 Visit Number 10 Number of MASTER PLANNER Visits 3 Evaluation Information Evaluation Date 03/08/24 PT-OP-B Current Condition Start: 03/08/24 14:26 Freq: Status: Active Protocol: Document 03/08/24 09:45 DCW (Rec: 03/08/24 17:54 DCW [id number]) Current Condition History of Current Condition Onset Date Long-standing history Current Complaints Poor balance, worsening posture, falls, weakness History of Current Condition Pt is an 78 year old female presenting with a long- standing history of poor balance, weakness, falls. Pt was previously treated at this clinic ~2.5 years ago for similar concerns with good results, however pt notes that she feels like she is much worse at this point. Has suffered three falls over the past three months, feels like it has mostly been due to catching her feet or walking on uneven surfaces. Does not use any assistive device, but I feel a lot better when I'm using a shopping cart. Does have a history of scoliosis and overall poor posture, but feels it is worsening. PT-OP-C Subjective Start: 03/08/24 14:26 Freq: Status: Active Protocol: Document 04/26/24 08:17 SP (Rec: 04/26/24 09:02 SP [id number]) OP-PT Subjective Patient Comments Patient Comments Pt reports her L SI hurt for couple days after last tx, doesn't want to do manual today. She states her balance is slightly better and not wobbling or staggering as much , is looking out front and keeping head up to help stabilize vs looking down. PT-OP-D Balance Start: 03/08/24 14:26 Freq: Status: Active Protocol: Document 03/08/24 09:45 DCW (Rec: 03/08/24 16:47 DCW [id number]) Balance Tests Yee Balance Test Yee Balance Test Score 35/56 Yee Impairment Rating 20 to 39% Impaired (Score 34- 44) Yee Balance Assessment Evaluation Sitting to Standing Ability Independent w/Hands Unsupported Stance Safely- 2 minutes Sitting Unsupported, Feet on Floor Safely- 2 minutes Standing to Sitting Ability Independent, Uncontrolled Transfer Ability Safely, Hand Use Unsupported Stance- Eyes Closed 3 seconds Unsupported Stance- Eyes Open Independent, <30 seconds Reaching Forward Standing Safely, 5 inches Pick- Up Object From Floor Supervision Look Behind Shoulder - Standing Turns Sideways Only Turning 360 Degrees Turns slowly, but safely Unsupported Stance, Alternating Feet on 4 Steps w/Supervision Stair Unsupported Tandem Stance Holds Tandem- 30 seconds Unilateral Leg Stance Lifts Leg/Unable to Hold Total Score Yee Total Score (out of 56 points) 35 Yee Impairment Rating 20 to 39% Impaired (Score 34- 44) PT-OP-E Functional Tests Start: 03/08/24 14:26 Freq: Status: Active Protocol: Document 03/08/24 09:45 DCW (Rec: 03/08/24 16:47 [facility] [id number]) Functional Tests Dynamic Gait Index (DGI) Score 05/23 DGI Impairment Rating 40 to <60% Impaired (Score 10- 14) PT-OP-J Posture/Palpation/Skin Start: 03/08/24 17:54 Freq: Status: Active Protocol: Document 03/08/24 09:45 DCW (Rec: 03/09/24 09:32 [facility] [id number]) Posture Evaluation Position Standing T-Spine Posture Fixed Scoliosis on (R), Increased Kyphosis L-Spine Posture Fixed Scoliosis on (L) Knee Posture (L) Excess Flexion,(R) Excess Flexion Comments Posture Comments Pt stands with bilateral knees in 10? flexion PT-OP-M Strength Start: 03/08/24 14:26 Freq: Status: Active Protocol: Document 03/08/24 09:45 DCW (Rec: 03/08/24 16:47 [facility] [id number]) Hip Strength Hip Manual Muscle Testing Right Flexion (L2) 3+ Fair+ Abduction 3+ Fair+ Adduction 4- Good- External Rotation 4- Good- Internal Rotation 4- Good- Left Flexion (L2) 3+ Fair+ Abduction 3+ Fair+ Adduction 4- Good- External Rotation 4- Good- Internal Rotation 4- Good- Knee Strength Knee Manual Muscle Testing Right Flexion (S2) 4 Good Extension (L3) 3 Fair Left Flexion (S2) 4 Good Extension (L3) 3+ Fair+ Ankle/Foot Strength Ankle and Foot Manual Muscle Testing Right Dorsiflexion (L4) 4 Good Left Dorsiflexion (L4) 4 Good PT-OP-Q Treatments Start: 03/08/24 14:26 Freq: Status: Active Protocol: Document 04/26/24 08:17 SP (Rec: 04/26/24 09:02 SP [id number]) Cardio Equipment Recumbent Stepper (Sci-Fit) Duration (Minutes) 8 Resistance 4.5 at 40-43 RPMs Seat Position 10 Other 1.11 miles Gym Equipment Shuttle Recovery Unilateral Squats Details tactile cues knee lateral midline- better no lat knee discomfort onR Resistance 37#> 50# (1 teal/ 1 navy) B Shuttle Recovery Platform Stable Reps/Time x12 R, 20 L reps Bilateral Squats Resistance 62#(1 rep hard)> 50# (2 reps)> 62 (2 navy) Shuttle Recovery Platform Stable Reps/Time x20 Shuttle Balance red clips Details WBOS 4s, NOS, Staggered stance Comments wt shift stationary /c HTs- CG- 10%A Therapeutic Exercises Standing Exercises wall posture Standing Exercise Name initiated in PT Comments buttocks, lower thoracic spine toward, head nod n resisted Shld ext semi tandem stance Standing Exercise Name semitandem Side bilateral Resistance TB #2 orange anchored elbow height Reps/Minutes 10 reps 2 SH, each both foot position Comments improved posture, TA, TKEand slight balance challenge Other Exercises Step-ups Other Exercise Name Step-up/back down, lateral Side bilateral Resistance 2# leg wt Equipment Used prn //bar (x1), 6 step Reps/Minutes 10 reps each LE lead Comments cued decrease stride back step down. Neuro Re-Education Treatment Balance Activities Dynamic Gait Details Hallway ambulation Comments Head turns (90 bpm) Retro Ambulation CGA -slower pacing but improved posturing corrections midline back stepping. Cued arms swing . PT-OP-T Assessment and Plan Start: 03/08/24 14:26 Freq: Status: Active Protocol: Document 04/26/24 08:17 SP (Rec: 04/26/24 09:02 SP [id number]) Physical Therapy Assessment Goals Three Impairment Poor posture secondary to scoliosis and inability to fully extend knees Wireless Telegrapher Goal (LTG) Pt to demonstrate ability to stand with knees in 0? extension >75% of the time with no cues in order to improve ability to keep center of gravity over base of support. LTG Duration 06/06/24 Two Impairment Pt presents as a significant falls risk, per Yee (35/56) and DGI (05/23) Assisted Goal (LTG) Pt to exhibit a decrease in risk of falls by improving DGI score by at least five points to LTG Duration 06/06/24 One Impairment Pt does not have an appropriate home exercise program Short Term Goal (STG) Pt to be independent and compliant with an appropriate HEP STG Duration 04/07/24 Assessment Summary Assessment Pt demonstrates improved postural correction with cues during balance activites. Initiated resisted step ups today lateral, little more challenging on R with weakness , cues for posture, midline stability and TKE /c glut facilation into full standing with slower pacing for foot clearance. LOB x2, 5%A and rail for recovery. Physical Therapy Plan Frequency and Duration Frequency of Treatment 2x/Week Plan of Care Start Date 03/08/24 Plan of Care End Date 06/06/24 Therapeutic Interventions Therapeutic Interventions Balance Training,Home Exercise Program,Joint Mobilizations, Manual Therapy,Neuromuscular Re-education,Patient/Caregiver Education,Self-Care/Home Management,Soft Tissue Mobilization,Therapeutic Activities,Therapeutic Exercises Next Visit Focus/Plan Next Note Type Treatment Note Next Visit Plan Continue uneven balance activiteis for progression return to boating. POC: LE strengthening, posture exercises, balance challenges
--- NOTE | 2024-05-04 08:59 | PT.OTN ---
Current Diagnoses Unsteadiness on feet (05/04/24) Other abnormalities of gait and mobility (05/04/24) Repeated falls (05/04/24) Physical Therapy Treatment Note PT-OP-A Visit Information Start: 03/08/24 14:26 Freq: Status: Active Protocol: Document 05/04/24 08:19 SP (Rec: 05/04/24 09:07 SP [id number]) Out-Patient Physical Therapy Visit Information Visit Information Visit Type Treatment Note Visit Start Time 08:19 Visit Stop Time 08:59 Visit Number 11 (11/06 with last PN) Number of PLASTER APPLICATOR Visits 4 Evaluation Information Evaluation Date 03/08/24 PT-OP-B Current Condition Start: 03/08/24 14:26 Freq: Status: Active Protocol: Document 03/08/24 09:45 DCW (Rec: 03/08/24 17:54 DCW [id number]) Current Condition History of Current Condition Onset Date Long-standing history Current Complaints Poor balance, worsening posture, falls, weakness History of Current Condition Pt is an 78 year old female presenting with a long- standing history of poor balance, weakness, falls. Pt was previously treated at this clinic ~2.5 years ago for similar concerns with good results, however pt notes that she feels like she is much worse at this point. Has suffered three falls over the past three months, feels like it has mostly been due to catching her feet or walking on uneven surfaces. Does not use any assistive device, but I feel a lot better when I'm using a shopping cart. Does have a history of scoliosis and overall poor posture, but feels it is worsening. PT-OP-C Subjective Start: 03/08/24 14:26 Freq: Status: Active Protocol: Document 05/04/24 08:19 SP (Rec: 05/04/24 09:07 SP [id number]) OP-PT Subjective Patient Comments Patient Comments Pt reports compliant with HEP. Is able to complete 10 STS without UE support in standard chair height at home. She can walk heel to toe near counter better but not perfect when look up in distance. She reports can stand for about 1 min with upright posture legs straight before back starts to hurt so relaxed into her flexed posture. She is incorporating the standing band pull down about 15 x throughout day and helps her posture. States she is having R SI discomfort PT-OP-D Balance Start: 03/08/24 14:26 Freq: Status: Active Protocol: Document 03/08/24 09:45 DCW (Rec: 03/08/24 16:47 DCW [id number]) Balance Tests Yee Balance Test Yee Balance Test Score 35/56 Yee Impairment Rating 20 to 39% Impaired (Score 34- 44) Yee Balance Assessment Evaluation Sitting to Standing Ability Independent w/Hands Unsupported Stance Safely- 2 minutes Sitting Unsupported, Feet on Floor Safely- 2 minutes Standing to Sitting Ability Independent, Uncontrolled Transfer Ability Safely, Hand Use Unsupported Stance- Eyes Closed 3 seconds Unsupported Stance- Eyes Open Independent, <30 seconds Reaching Forward Standing Safely, 5 inches Pick- Up Object From Floor Supervision Look Behind Shoulder - Standing Turns Sideways Only Turning 360 Degrees Turns slowly, but safely Unsupported Stance, Alternating Feet on 4 Steps w/Supervision Stair Unsupported Tandem Stance Holds Tandem- 30 seconds Unilateral Leg Stance Lifts Leg/Unable to Hold Total Score Yee Total Score (out of 56 points) 35 Yee Impairment Rating 20 to 39% Impaired (Score 34- 44) PT-OP-E Functional Tests Start: 03/08/24 14:26 Freq: Status: Active Protocol: Document 03/08/24 09:45 DCW (Rec: 03/08/24 16:47 DC [id number]) Functional Tests Dynamic Gait Index (DGI) Score 05/23 DGI Impairment Rating 40 to <60% Impaired (Score 10- 14) PT-OP-J Posture/Palpation/Skin Start: 03/08/24 17:54 Freq: Status: Active Protocol: Document 03/08/24 09:45 DCW (Rec: 03/09/24 09:32 DCW [id number]) Posture Evaluation Position Standing T-Spine Posture Fixed Scoliosis on (R), Increased Kyphosis L-Spine Posture Fixed Scoliosis on (L) Knee Posture (L) Excess Flexion,(R) Excess Flexion Comments Posture Comments Pt stands with bilateral knees in 10? flexion PT-OP-M Strength Start: 03/08/24 14:26 Freq: Status: Active Protocol: Document 03/08/24 09:45 DCW (Rec: 03/08/24 16:47 DCW [id number]) Hip Strength Hip Manual Muscle Testing Right Flexion (L2) 3+ Fair+ Abduction 3+ Fair+ Adduction 4- Good- External Rotation 4- Good- Internal Rotation 4- Good- Left Flexion (L2) 3+ Fair+ Abduction 3+ Fair+ Adduction 4- Good- External Rotation 4- Good- Internal Rotation 4- Good- Knee Strength Knee Manual Muscle Testing Right Flexion (S2) 4 Good Extension (L3) 3 Fair Left Flexion (S2) 4 Good Extension (L3) 3+ Fair+ Ankle/Foot Strength Ankle and Foot Manual Muscle Testing Right Dorsiflexion (L4) 4 Good Left Dorsiflexion (L4) 4 Good PT-OP-Q Treatments Start: 03/08/24 14:26 Freq: Status: Active Protocol: Document 05/04/24 08:19 SP (Rec: 05/04/24 09:07 SP [id number]) Cardio Equipment Recumbent Stepper (Sci-Fit) Duration (Minutes) 8 Resistance 4.5 at 40-43 RPMs Seat Position 10 Other 1.11 miles Gym Equipment Shuttle Recovery Unilateral Squats Details tactile cues knee lateral midline- better no lat knee discomfort onR Resistance 50# (2 navy) B Shuttle Recovery Platform Stable Reps/Time x15 B reps Bilateral Squats Resistance 50# 2 navy (2 reps)> 62 (2 navy) Shuttle Recovery Platform Stable Reps/Time x20 Therapeutic Exercises Standing Exercises Inclined cat/cow & tail wag Standing Exercise Name trialed in PT Resistance B forearms on elevated side shuttle balance Reps/Minutes 8 reps each Comments improved back muscular mobility and reduction L back and SI discomfort resisted Shld ext semi tandem stance Standing Exercise Name semitandem Side bilateral Resistance TB #2 orange anchored elbow height (teal home) Reps/Minutes 10 reps 2 SH, each both foot position Comments improved posture, TA, TKE Other Exercises Resisted Ambulation Other Exercise Name Resisted side-stepping Resistance [place] green at shins Equipment Used // Bars Reps/Minutes 10 ft x3 laps Comments light 1 finger contact assist posture, cues DF trail LLE clearance Neuro Re-Education Treatment Balance Activities SLS Reps/Duration X3 X 2 each LE Comments CGA Dynamic Gait Details Hallway ambulation Comments Head turns (90 bpm) Retro Ambulation tandem stepping CGA -slower pacing but improved posturing corrections midline back stepping. Decreased cues for arms swing. Semi<>Tandem stepping without UE support using line on floor Foam Details NBOS, stride stance Surface AirEx Comments Head turns EC NBOS: 30 sec EC stride stance: R ft fwd, 29 sec before LOB R ft fwd PT-OP-T Assessment and Plan Start: 03/08/24 14:26 Freq: Status: Active Protocol: Document 05/04/24 08:19 SP (Rec: 05/04/24 09:07 SP [id number]) Physical Therapy Assessment Goals Three Impairment Poor posture secondary to scoliosis and inability to fully extend knees Skilled Nursing Goal (LTG) Pt to demonstrate ability to stand with knees in 0? extension >75% of the time with no cues in order to improve ability to keep center of gravity over base of support. 05/04/24: She reports can stand for about 1 min with upright posture legs straight before back starts to hurt so relaxed into her flexed posture. LTG Duration 06/06/24 progressing 05/04/24 Two Impairment Pt presents as a significant falls risk, per Yee (35/56) and DGI (05/23) Cheese Pancake Roller Goal (LTG) Pt to exhibit a decrease in risk of falls by improving DGI score by at least five points to LTG Duration 06/06/24 One Impairment Pt does not have an appropriate home exercise program Short Term Goal (STG) Pt to be independent and compliant with an appropriate HEP STG Duration 04/07/24 Assessment Summary Assessment Pt requires occasional cues for elongated posture during stationary and moving activities with improved midline stability with less to no UE support. Improved postural alignment and more TKE with light finger on rail during resisted side stepping. Physical Therapy Plan Frequency and Duration Frequency of Treatment 2x/Week Plan of Care Start Date 03/08/24 Plan of Care End Date 06/06/24 Therapeutic Interventions Therapeutic Interventions Balance Training,Home Exercise Program,Joint Mobilizations, Manual Therapy,Neuromuscular Re-education,Patient/Caregiver Education,Self-Care/Home Management,Soft Tissue Mobilization,Therapeutic Activities,Therapeutic Exercises Next Visit Focus/Plan Next Note Type Treatment Note Next Visit Plan Recheck incline cat/cow& tail wag if ok then provide HO. Continue uneven balance activiteis for progression return to boating. POC: LE strengthening, posture exercises, balance challenges
--- NOTE | 2024-05-11 10:30 | PT.OTN ---
Current Diagnoses Unsteadiness on feet (05/11/24) Other abnormalities of gait and mobility (05/11/24) Repeated falls (05/11/24) Physical Therapy Treatment Note PT-OP-A Visit Information Start: 03/08/24 14:26 Freq: Status: Active Protocol: Document 05/11/24 09:45 DCW (Rec: 05/11/24 10:30 DCW [id number]) Out-Patient Physical Therapy Visit Information Visit Information Visit Type Treatment Note Visit Start Time 09:45 Visit Stop Time 10:30 Visit Number 12 (12/07 with last PN) Number of BIOINFORMATICS PROGRAMMER Visits 0 Evaluation Information Evaluation Date 03/08/24 PT-OP-B Current Condition Start: 03/08/24 14:26 Freq: Status: Active Protocol: Document 03/08/24 09:45 DCW (Rec: 03/08/24 17:54 DCW [id number]) Current Condition History of Current Condition Onset Date Long-standing history Current Complaints Poor balance, worsening posture, falls, weakness History of Current Condition Pt is an 78 year old female presenting with a long- standing history of poor balance, weakness, falls. Pt was previously treated at this clinic ~2.5 years ago for similar concerns with good results, however pt notes that she feels like she is much worse at this point. Has suffered three falls over the past three months, feels like it has mostly been due to catching her feet or walking on uneven surfaces. Does not use any assistive device, but I feel a lot better when I'm using a shopping cart. Does have a history of scoliosis and overall poor posture, but feels it is worsening. PT-OP-C Subjective Start: 03/08/24 14:26 Freq: Status: Active Protocol: Document 05/11/24 09:45 DCW (Rec: 05/11/24 10:30 DCW [id number]) OP-PT Subjective Patient Comments Patient Comments Actually not too bad. My balance is somewhat better. If I really focus, I can walk in a straight line. PT-OP-D Balance Start: 03/08/24 14:26 Freq: Status: Active Protocol: Document 03/08/24 09:45 DCW (Rec: 03/08/24 16:47 DCW [id number]) Balance Tests Yee Balance Test Yee Balance Test Score 35/56 Yee Impairment Rating 20 to 39% Impaired (Score 34- 44) Yee Balance Assessment Evaluation Sitting to Standing Ability Independent w/Hands Unsupported Stance Safely- 2 minutes Sitting Unsupported, Feet on Floor Safely- 2 minutes Standing to Sitting Ability Independent, Uncontrolled Transfer Ability Safely, Hand Use Unsupported Stance- Eyes Closed 3 seconds Unsupported Stance- Eyes Open Independent, <30 seconds Reaching Forward Standing Safely, 5 inches Pick- Up Object From Floor Supervision Look Behind Shoulder - Standing Turns Sideways Only Turning 360 Degrees Turns slowly, but safely Unsupported Stance, Alternating Feet on 4 Steps w/Supervision Stair Unsupported Tandem Stance Holds Tandem- 30 seconds Unilateral Leg Stance Lifts Leg/Unable to Hold Total Score Yee Total Score (out of 56 points) 35 Yee Impairment Rating 20 to 39% Impaired (Score 34- 44) PT-OP-E Functional Tests Start: 03/08/24 14:26 Freq: Status: Active Protocol: Document 03/08/24 09:45 DCW (Rec: 03/08/24 16:47 DCW [id number]) Functional Tests Dynamic Gait Index (DGI) Score 05/23 DGI Impairment Rating 40 to <60% Impaired (Score 10- 14) PT-OP-J Posture/Palpation/Skin Start: 03/08/24 17:54 Freq: Status: Active Protocol: Document 03/08/24 09:45 DCW (Rec: 03/09/24 09:32 DCW [id number]) Posture Evaluation Position Standing T-Spine Posture Fixed Scoliosis on (R), Increased Kyphosis L-Spine Posture Fixed Scoliosis on (L) Knee Posture (L) Excess Flexion,(R) Excess Flexion Comments Posture Comments Pt stands with bilateral knees in 10? flexion PT-OP-M Strength Start: 03/08/24 14:26 Freq: Status: Active Protocol: Document 03/08/24 09:45 DCW (Rec: 03/08/24 16:47 DCW [id number]) Hip Strength Hip Manual Muscle Testing Right Flexion (L2) 3+ Fair+ Abduction 3+ Fair+ Adduction 4- Good- External Rotation 4- Good- Internal Rotation 4- Good- Left Flexion (L2) 3+ Fair+ Abduction 3+ Fair+ Adduction 4- Good- External Rotation 4- Good- Internal Rotation 4- Good- Knee Strength Knee Manual Muscle Testing Right Flexion (S2) 4 Good Extension (L3) 3 Fair Left Flexion (S2) 4 Good Extension (L3) 3+ Fair+ Ankle/Foot Strength Ankle and Foot Manual Muscle Testing Right Dorsiflexion (L4) 4 Good Left Dorsiflexion (L4) 4 Good PT-OP-Q Treatments Start: 03/08/24 14:26 Freq: Status: Active Protocol: Document 05/11/24 09:45 DCW (Rec: 05/11/24 10:30 DCW [id number]) Cardio Equipment Recumbent Elliptical (Biodex) Duration (Minutes) 6 Resistance 5 Seat Position 8 Gym Equipment Shuttle Recovery Unilateral Squats Resistance 50# (2 navy) Shuttle Recovery Platform Stable Reps/Time x15 B reps Bilateral Squats Resistance 75# (3 navy) Shuttle Recovery Platform Stable Reps/Time x20 Shuttle Balance red clips Details WBOS, Staggered Therapeutic Exercises Standing Exercises Extension Standing Exercise Name Shoulder Extension Side bilateral Resistance Green Reps/Minutes focus on posture Rows Standing Exercise Name Rows Side bilateral Resistance Green Comments focus on posture Other Exercises Resisted Ambulation Other Exercise Name Resisted side-stepping, forward, backward Resistance tribal green at shins Equipment Used // Bars Neuro Re-Education Treatment Balance Activities SLS Details SLS Equipment // Bars Foam Details NBOS Surface AirEx Comments X1 viewing Tandem Details Tandem Stance Equipment // bars PT-OP-T Assessment and Plan Start: 03/08/24 14:26 Freq: Status: Active Protocol: Document 05/11/24 09:45 DCW (Rec: 05/11/24 10:30 DCW [id number]) Physical Therapy Assessment Impairments Impairments Activity Tolerance,Balance, Functional Activities, Functional Mobility,Posture, Soft Tissue Mobility,Strength Goals Three Impairment Poor posture secondary to scoliosis and inability to fully extend knees Custodial Goal (LTG) Pt to demonstrate ability to stand with knees in 0? extension >75% of the time with no cues in order to improve ability to keep center of gravity over base of support. 05/04/24: She reports can stand for about 1 min with upright posture legs straight before back starts to hurt so relaxed into her flexed posture. LTG Duration 06/06/24 progressing 05/04/24 Two Impairment Pt presents as a significant falls risk, per Yee (35/56) and DGI (05/23) Custodial Goal (LTG) Pt to exhibit a decrease in risk of falls by improving DGI score by at least five points to 16 LTG Duration 06/06/24 One Impairment Pt does not have an appropriate home exercise program Short Term Goal (STG) Pt to be independent and compliant with an appropriate HEP STG Duration 04/07/24 Assessment Summary Assessment Continuing to focus on posture and balance. Pt making some improvements with strength and dynamic balance challenges. Physical Therapy Plan Frequency and Duration Frequency of Treatment 2x/Week Plan of Care Start Date 03/08/24 Plan of Care End Date 06/06/24 Therapeutic Interventions Therapeutic Interventions Balance Training,Home Exercise Program,Joint Mobilizations, Manual Therapy,Neuromuscular Re-education,Patient/Caregiver Education,Self-Care/Home Management,Soft Tissue Mobilization,Therapeutic Activities,Therapeutic Exercises Next Visit Focus/Plan Next Note Type Treatment Note Next Visit Plan Recheck incline cat/cow& tail wag if ok then provide HO. Continue uneven balance activiteis for progression return to boating. POC: LE strengthening, posture exercises, balance challenges
--- NOTE | 2024-05-13 10:32 | PT.OTN ---
Current Diagnoses Unsteadiness on feet (05/13/24) Other abnormalities of gait and mobility (05/13/24) Repeated falls (05/13/24) Physical Therapy Treatment Note PT-OP-A Visit Information Start: 03/08/24 14:26 Freq: Status: Active Protocol: Document 05/13/24 09:45 DCW (Rec: 05/13/24 10:32 DCW [id number]) Out-Patient Physical Therapy Visit Information Visit Information Visit Type Treatment Note Visit Start Time 09:45 Visit Stop Time 10:30 Visit Number 13 (01/06 with last PN) Number of PERSONAL INJURY LAW SPECIALIST Visits 0 Evaluation Information Evaluation Date 03/08/24 PT-OP-B Current Condition Start: 03/08/24 14:26 Freq: Status: Active Protocol: Document 03/08/24 09:45 DCW (Rec: 03/08/24 17:54 DCW [id number]) Current Condition History of Current Condition Onset Date Long-standing history Current Complaints Poor balance, worsening posture, falls, weakness History of Current Condition Pt is an 78 year old female presenting with a long- standing history of poor balance, weakness, falls. Pt was previously treated at this clinic ~2.5 years ago for similar concerns with good results, however pt notes that she feels like she is much worse at this point. Has suffered three falls over the past three months, feels like it has mostly been due to catching her feet or walking on uneven surfaces. Does not use any assistive device, but I feel a lot better when I'm using a shopping cart. Does have a history of scoliosis and overall poor posture, but feels it is worsening. PT-OP-C Subjective Start: 03/08/24 14:26 Freq: Status: Active Protocol: Document 05/13/24 09:45 DCW (Rec: 05/13/24 10:32 DCW [id number]) OP-PT Subjective Patient Comments Patient Comments Pt feeling pretty good today PT-OP-D Balance Start: 03/08/24 14:26 Freq: Status: Active Protocol: Document 03/08/24 09:45 DCW (Rec: 03/08/24 16:47 DCW [id number]) Balance Tests Yee Balance Test Yee Balance Test Score 35/56 Yee Impairment Rating 20 to 39% Impaired (Score 34- 44) Yee Balance Assessment Evaluation Sitting to Standing Ability Independent w/Hands Unsupported Stance Safely- 2 minutes Sitting Unsupported, Feet on Floor Safely- 2 minutes Standing to Sitting Ability Independent, Uncontrolled Transfer Ability Safely, Hand Use Unsupported Stance- Eyes Closed 3 seconds Unsupported Stance- Eyes Open Independent, <30 seconds Reaching Forward Standing Safely, 5 inches Pick- Up Object From Floor Supervision Look Behind Shoulder - Standing Turns Sideways Only Turning 360 Degrees Turns slowly, but safely Unsupported Stance, Alternating Feet on 4 Steps w/Supervision Stair Unsupported Tandem Stance Holds Tandem- 30 seconds Unilateral Leg Stance Lifts Leg/Unable to Hold Total Score Yee Total Score (out of 56 points) 35 Yee Impairment Rating 20 to 39% Impaired (Score 34- 44) PT-OP-E Functional Tests Start: 03/08/24 14:26 Freq: Status: Active Protocol: Document 03/08/24 09:45 DCW (Rec: 03/08/24 16:47 DCW [id number]) Functional Tests Dynamic Gait Index (DGI) Score 05/23 DGI Impairment Rating 40 to <60% Impaired (Score 10- 14) PT-OP-J Posture/Palpation/Skin Start: 03/08/24 17:54 Freq: Status: Active Protocol: Document 03/08/24 09:45 DCW (Rec: 03/09/24 09:32 DCW [id number]) Posture Evaluation Position Standing T-Spine Posture Fixed Scoliosis on (R), Increased Kyphosis L-Spine Posture Fixed Scoliosis on (L) Knee Posture (L) Excess Flexion,(R) Excess Flexion Comments Posture Comments Pt stands with bilateral knees in 10? flexion PT-OP-M Strength Start: 03/08/24 14:26 Freq: Status: Active Protocol: Document 03/08/24 09:45 DCW (Rec: 03/08/24 16:47 DCW [id number]) Hip Strength Hip Manual Muscle Testing Right Flexion (L2) 3+ Fair+ Abduction 3+ Fair+ Adduction 4- Good- External Rotation 4- Good- Internal Rotation 4- Good- Left Flexion (L2) 3+ Fair+ Abduction 3+ Fair+ Adduction 4- Good- External Rotation 4- Good- Internal Rotation 4- Good- Knee Strength Knee Manual Muscle Testing Right Flexion (S2) 4 Good Extension (L3) 3 Fair Left Flexion (S2) 4 Good Extension (L3) 3+ Fair+ Ankle/Foot Strength Ankle and Foot Manual Muscle Testing Right Dorsiflexion (L4) 4 Good Left Dorsiflexion (L4) 4 Good PT-OP-Q Treatments Start: 03/08/24 14:26 Freq: Status: Active Protocol: Document 05/13/24 09:45 DCW (Rec: 05/13/24 10:32 DCW [id number]) Cardio Equipment Recumbent Elliptical (Biodex) Duration (Minutes) 6 Resistance 7 Seat Position 8 Gym Equipment Shuttle Recovery Unilateral Squats Resistance 50# (2 navy) Shuttle Recovery Platform Stable Reps/Time x15 B reps Bilateral Squats Resistance 75#->62# Shuttle Recovery Platform Stable Reps/Time x20 Shuttle Balance red clips Details WBOS, Staggered Neuro Re-Education Treatment Balance Activities SLS Details SLS Equipment // Bars Dynamic Gait Details Hallway ambulation Comments Head turns (90 bpm) Retro Ambulation (EO/EC) Tandem Ambulation Foam Details NBOS Surface AirEx Comments X1 viewing Hurdles Details Hurdles Comments Fwd, Side-stepping PT-OP-T Assessment and Plan Start: 03/08/24 14:26 Freq: Status: Active Protocol: Document 05/13/24 09:45 DCW (Rec: 05/13/24 10:32 DCW [id number]) Physical Therapy Assessment Impairments Impairments Activity Tolerance,Balance, Functional Activities, Functional Mobility,Posture, Soft Tissue Mobility,Strength Goals Three Impairment Poor posture secondary to scoliosis and inability to fully extend knees Supervisor Denture Department Goal (LTG) Pt to demonstrate ability to stand with knees in 0? extension >75% of the time with no cues in order to improve ability to keep center of gravity over base of support. 05/04/24: She reports can stand for about 1 min with upright posture legs straight before back starts to hurt so relaxed into her flexed posture. LTG Duration 06/06/24 progressing 05/04/24 Two Impairment Pt presents as a significant falls risk, per Yee (35/56) and DGI (05/23) Supervisor Denture Department Goal (LTG) Pt to exhibit a decrease in risk of falls by improving DGI score by at least five points to LTG Duration 06/06/24 One Impairment Pt does not have an appropriate home exercise program Short Term Goal (STG) Pt to be independent and compliant with an appropriate HEP STG Duration 04/07/24 Assessment Summary Assessment Pt had more of a struggle today with tandem gait and on Shuttle Balance. Pt noted she just felt like she had a delayed reaction time today. Continue to focus on static and dynamic balance challenges . Physical Therapy Plan Frequency and Duration Frequency of Treatment 2x/Week Plan of Care Start Date 03/08/24 Plan of Care End Date 06/06/24 Therapeutic Interventions Therapeutic Interventions Balance Training,Home Exercise Program,Joint Mobilizations, Manual Therapy,Neuromuscular Re-education,Patient/Caregiver Education,Self-Care/Home Management,Soft Tissue Mobilization,Therapeutic Activities,Therapeutic Exercises Next Visit Focus/Plan Next Note Type Treatment Note Next Visit Plan Recheck incline cat/cow& tail wag if ok then provide HO. Continue uneven balance activiteis for progression return to boating. POC: LE strengthening, posture exercises, balance challenges
--- NOTE | 2024-05-18 11:29 | PT.OTN ---
Current Diagnoses Unsteadiness on feet (05/18/24) Other abnormalities of gait and mobility (05/18/24) Repeated falls (05/18/24) Physical Therapy Treatment Note PT-OP-A Visit Information Start: 03/08/24 14:26 Freq: Status: Active Protocol: Document 05/18/24 10:49 SP (Rec: 05/18/24 11:35 SP [id number]) Out-Patient Physical Therapy Visit Information Visit Information Visit Type Treatment Note Visit Note 06/08/24 PN with PT Visit Start Time 10:49 Visit Stop Time 11:29 Visit Number 14 (02/06 with last PN) Number of C PROGRAMMER Visits 1 Evaluation Information Evaluation Date 03/08/24 PT-OP-B Current Condition Start: 03/08/24 14:26 Freq: Status: Active Protocol: Document 03/08/24 09:45 DCW (Rec: 03/08/24 17:54 DCW [id number]) Current Condition History of Current Condition Onset Date Long-standing history Current Complaints Poor balance, worsening posture, falls, weakness History of Current Condition Pt is an 78 year old female presenting with a long- standing history of poor balance, weakness, falls. Pt was previously treated at this clinic ~2.5 years ago for similar concerns with good results, however pt notes that she feels like she is much worse at this point. Has suffered three falls over the past three months, feels like it has mostly been due to catching her feet or walking on uneven surfaces. Does not use any assistive device, but I feel a lot better when I'm using a shopping cart. Does have a history of scoliosis and overall poor posture, but feels it is worsening. PT-OP-C Subjective Start: 03/08/24 14:26 Freq: Status: Active Protocol: Document 05/18/24 10:49 SP (Rec: 05/18/24 11:35 SP [id number]) OP-PT Subjective Patient Comments Patient Comments Pt reports her balance hasn't been as well since last tx and unsure why. PT-OP-D Balance Start: 03/08/24 14:26 Freq: Status: Active Protocol: Document 03/08/24 09:45 DCW (Rec: 03/08/24 16:47 DCW [id number]) Balance Tests Yee Balance Test Yee Balance Test Score 35/56 Yee Impairment Rating 20 to 39% Impaired (Score 34- 44) Yee Balance Assessment Evaluation Sitting to Standing Ability Independent w/Hands Unsupported Stance Safely- 2 minutes Sitting Unsupported, Feet on Floor Safely- 2 minutes Standing to Sitting Ability Independent, Uncontrolled Transfer Ability Safely, Hand Use Unsupported Stance- Eyes Closed 3 seconds Unsupported Stance- Eyes Open Independent, <30 seconds Reaching Forward Standing Safely, 5 inches Pick- Up Object From Floor Supervision Look Behind Shoulder - Standing Turns Sideways Only Turning 360 Degrees Turns slowly, but safely Unsupported Stance, Alternating Feet on 4 Steps w/Supervision Stair Unsupported Tandem Stance Holds Tandem- 30 seconds Unilateral Leg Stance Lifts Leg/Unable to Hold Total Score Yee Total Score (out of 56 points) 35 Yee Impairment Rating 20 to 39% Impaired (Score 34- 44) PT-OP-E Functional Tests Start: 03/08/24 14:26 Freq: Status: Active Protocol: Document 03/08/24 09:45 DCW (Rec: 03/08/24 16:47 DCW [id number]) Functional Tests Dynamic Gait Index (DGI) Score 05/23 DGI Impairment Rating 40 to <60% Impaired (Score 10- 14) PT-OP-J Posture/Palpation/Skin Start: 03/08/24 17:54 Freq: Status: Active Protocol: Document 03/08/24 09:45 DCW (Rec: 03/09/24 09:32 DCW [id number]) Posture Evaluation Position Standing T-Spine Posture Fixed Scoliosis on (R), Increased Kyphosis L-Spine Posture Fixed Scoliosis on (L) Knee Posture (L) Excess Flexion,(R) Excess Flexion Comments Posture Comments Pt stands with bilateral knees in 10? flexion PT-OP-M Strength Start: 03/08/24 14:26 Freq: Status: Active Protocol: Document 03/08/24 09:45 DCW (Rec: 03/08/24 16:47 DCW [id number]) Hip Strength Hip Manual Muscle Testing Right Flexion (L2) 3+ Fair+ Abduction 3+ Fair+ Adduction 4- Good- External Rotation 4- Good- Internal Rotation 4- Good- Left Flexion (L2) 3+ Fair+ Abduction 3+ Fair+ Adduction 4- Good- External Rotation 4- Good- Internal Rotation 4- Good- Knee Strength Knee Manual Muscle Testing Right Flexion (S2) 4 Good Extension (L3) 3 Fair Left Flexion (S2) 4 Good Extension (L3) 3+ Fair+ Ankle/Foot Strength Ankle and Foot Manual Muscle Testing Right Dorsiflexion (L4) 4 Good Left Dorsiflexion (L4) 4 Good PT-OP-Q Treatments Start: 03/08/24 14:26 Freq: Status: Active Protocol: Document 05/18/24 10:49 SP (Rec: 05/18/24 11:35 SP [id number]) Cardio Equipment Recumbent Stepper (Sci-Fit) Duration (Minutes) 8 Resistance 4.5 at 40-43 RPMs Seat Position 10 Other 1.09 miles Gym Equipment Shuttle Recovery Unilateral Squats Details cued knee alignment more lateral Resistance 50#> 37 # (1 navy) Shuttle Recovery Platform Stable Reps/Time x8 L, 3 reps R 50#> 37# x20 reps B Bilateral Squats Resistance 62# 2 navy Shuttle Recovery Platform Stable Reps/Time x20 Sport Cord green Exercise Details f/b/lat Reps/Duration 5 reps fwd & bwd, 3 reps lateral Comments less reps lateral due to L hip discomfort Therapeutic Exercises Sitting Exercises HIP ER stretch Sitting Exercise Name initiated FIg 4 (not directed as HEP) Side left Resistance L ankle over R knee Reps/Minutes 30 SH Comments good anterior and lateral hip stretch, limited in range Neuro Re-Education Treatment Balance Activities Foam Details NBOS & stride stance 2 bwtn BLEs Surface AirEx Comments stationary head turns lateral and vertical cues elongated posture and wt shift into Fwd foot improved stability- only 4 contact rail on R when R lean head turn R. Hurdles Details Hurdles Reps/Duration 4 hurdles x4 laps Comments Fwd, Side-stepping PT-OP-T Assessment and Plan Start: 03/08/24 14:26 Freq: Status: Active Protocol: Document 05/18/24 10:49 SP (Rec: 05/18/24 11:35 SP [id number]) Physical Therapy Assessment Goals Three Impairment Poor posture secondary to scoliosis and inability to fully extend knees Fdc Goal (LTG) Pt to demonstrate ability to stand with knees in 0? extension >75% of the time with no cues in order to improve ability to keep center of gravity over base of support. 05/04/24: She reports can stand for about 1 min with upright posture legs straight before back starts to hurt so relaxed into her flexed posture. LTG Duration 06/06/24 progressing 05/04/24 Two Impairment Pt presents as a significant falls risk, per Yee (35/56) and DGI (05/23) Fdc Goal (LTG) Pt to exhibit a decrease in risk of falls by improving DGI score by at least five points to 16 LTG Duration 06/06/24 One Impairment Pt does not have an appropriate home exercise program Short Term Goal (STG) Pt to be independent and compliant with an appropriate HEP STG Duration 04/07/24 Assessment Summary Assessment Pt improved posturing and foot clearance on LLE with cuing and emphasis on increased MARGOTH between B feet and knees today . Reported L hip discomfrot during resisted walking, went away with seated hip ER FIG 4 stretch end tx, limited but able to increase range, strong stretch reported over anterolateral L hip. Physical Therapy Plan Frequency and Duration Frequency of Treatment 2x/Week Plan of Care Start Date 03/08/24 Plan of Care End Date 06/06/24 Therapeutic Interventions Therapeutic Interventions Balance Training,Home Exercise Program,Joint Mobilizations, Manual Therapy,Neuromuscular Re-education,Patient/Caregiver Education,Self-Care/Home Management,Soft Tissue Mobilization,Therapeutic Activities,Therapeutic Exercises Next Visit Focus/Plan Next Note Type Treatment Note Next Visit Plan 06/08/24 PN with PT (2 visits) Recheck incline cat/cow& tail wag for LB mobility comfort when needed and seated hip ER FIg 4 stretch, give HO if needed. Continue uneven balance activiteis for progression return to boating. POC: LE strengthening, posture exercises, balance challenges
--- NOTE | 2024-05-21 08:15 | PT.OTN ---
Current Diagnoses Unsteadiness on feet (05/21/24) Other abnormalities of gait and mobility (05/21/24) Repeated falls (05/21/24) Physical Therapy Treatment Note PT-OP-A Visit Information Start: 03/08/24 14:26 Freq: Status: Active Protocol: Document 05/21/24 07:35 SP (Rec: 05/21/24 08:18 SP [id number]) Out-Patient Physical Therapy Visit Information Visit Information Visit Type Treatment Note Visit Note DC next tx Visit Start Time 07:35 Visit Stop Time 08:15 Visit Number 15 (04/08 with last PN) Number of ROOF PANEL HANGER Visits 2 Evaluation Information Evaluation Date 03/08/24 PT-OP-B Current Condition Start: 03/08/24 14:26 Freq: Status: Active Protocol: Document 03/08/24 09:45 DCW (Rec: 03/08/24 17:54 DCW [id number]) Current Condition History of Current Condition Onset Date Long-standing history Current Complaints Poor balance, worsening posture, falls, weakness History of Current Condition Pt is an 78 year old female presenting with a long- standing history of poor balance, weakness, falls. Pt was previously treated at this clinic ~2.5 years ago for similar concerns with good results, however pt notes that she feels like she is much worse at this point. Has suffered three falls over the past three months, feels like it has mostly been due to catching her feet or walking on uneven surfaces. Does not use any assistive device, but I feel a lot better when I'm using a shopping cart. Does have a history of scoliosis and overall poor posture, but feels it is worsening. PT-OP-C Subjective Start: 03/08/24 14:26 Freq: Status: Active Protocol: Document 05/21/24 07:35 SP (Rec: 05/21/24 08:18 SP [id number]) OP-PT Subjective Patient Comments Patient Comments Pt reports can't stand on 1 foot more than 3 sec but finds making gains in balance able to walk straight line. She reported was walking down the stairs in dark and miss judged the last step using the rail support like always and didn' fall. She feels is ready for continue on her own and the last appt with PT will be her last. She states her L hip is sore when wakes up so puts h PT-OP-D Balance Start: 03/08/24 14:26 Freq: Status: Active Protocol: Document 05/21/24 07:35 SP (Rec: 05/21/24 08:31 SP [id number]) Balance Tests Pat Balance Test Pat Balance Test Score 50/56 Pat Impairment Rating 1 to 19% Impaired (Score 45-55 ) PT-OP-E Functional Tests Start: 03/08/24 14:26 Freq: Status: Active Protocol: Document 05/21/24 07:35 SP (Rec: 05/21/24 08:31 SP [id number]) Functional Tests Dynamic Gait Index (DGI) Score DGI Impairment Rating 20 to <40% Impaired (Score 15- 19) PT-OP-J Posture/Palpation/Skin Start: 03/08/24 17:54 Freq: Status: Active Protocol: Document 03/08/24 09:45 DCW (Rec: 03/09/24 09:32 DCW [id number]) Posture Evaluation Position Standing T-Spine Posture Fixed Scoliosis on (R), Increased Kyphosis L-Spine Posture Fixed Scoliosis on (L) Knee Posture (L) Excess Flexion,(R) Excess Flexion Comments Posture Comments Pt stands with bilateral knees in 10? flexion PT-OP-M Strength Start: 03/08/24 14:26 Freq: Status: Active Protocol: Document 03/08/24 09:45 DCW (Rec: 03/08/24 16:47 DCW [id number]) Hip Strength Hip Manual Muscle Testing Right Flexion (L2) 3+ Fair+ Abduction 3+ Fair+ Adduction 4- Good- External Rotation 4- Good- Internal Rotation 4- Good- Left Flexion (L2) 3+ Fair+ Abduction 3+ Fair+ Adduction 4- Good- External Rotation 4- Good- Internal Rotation 4- Good- Knee Strength Knee Manual Muscle Testing Right Flexion (S2) 4 Good Extension (L3) 3 Fair Left Flexion (S2) 4 Good Extension (L3) 3+ Fair+ Ankle/Foot Strength Ankle and Foot Manual Muscle Testing Right Dorsiflexion (L4) 4 Good Left Dorsiflexion (L4) 4 Good PT-OP-Q Treatments Start: 03/08/24 14:26 Freq: Status: Active Protocol: Document 05/21/24 07:35 SP (Rec: 05/21/24 08:18 SP [id number]) Cardio Equipment Recumbent Elliptical (Biodex) Duration (Minutes) 8 Resistance 7 Seat Position 9 Other BUE& BLEs 40 RPMs, 586 s teps Therapeutic Exercises Supine Exercises Hip ER and adductor stretch Supine Exercise Name added to HEP /c HO Side bilateral Reps/Minutes 30 hold Comments cued back toward table Sitting Exercises HIP ER stretch Sitting Exercise Name FIg 4 Side left Resistance L ankle over R knee Reps/Minutes 30 SH Comments good anterior and lateral hip stretch, limited in range Standing Exercises Extension Standing Exercise Name Shoulder Extension- reviewed Side bilateral Resistance Green TB Reps/Minutes 10 SH x10 reps Comments good posture Neuro Re-Education Treatment Balance Activities PAT Details 50/56 DGI Details Dynamic Gait Details Hallway ambulation Comments Head turns (90 bpm) Retro Ambulation (EO/EC) Tandem Ambulation Self-Care/Home Management Treatment Education Patient Education Home Exercise Program,Joint Protection,Pain Management Other Education Discussion incorporation of hip stretching before gets out of bed to support ROM, decrease stiffness and pain reduction when gets up in the am. Continued discussion of use pillows between BLEs side sleeping for hip and spinal alignment for carryover postural alignment and decreased hip and back discomfort standing stability. Verbalized will remember that would help the same as keeping her knees apart sitting, notices doing so improves her knee alignment and posture standing. PT-OP-T Assessment and Plan Start: 03/08/24 14:26 Freq: Status: Active Protocol: Document 05/21/24 07:35 SP (Rec: 05/21/24 08:18 SP [id number]) Physical Therapy Assessment Goals Three Impairment Poor posture secondary to scoliosis and inability to fully extend knees Mcc Goal (LTG) Pt to demonstrate ability to stand with knees in 0? extension >75% of the time with no cues in order to improve ability to keep center of gravity over base of support. 05/04/24: She reports can stand for about 1 min with upright posture legs straight before back starts to hurt so relaxed into her flexed posture. LTG Duration 06/06/24 progressing 05/04/24 Two Impairment Pt presents as a significant falls risk, per Pat (35/56) and DGI (05/23) Mcc Goal (LTG) Pt to exhibit a decrease in risk of falls by improving DGI score by at least five points to 05/21/24: DGI , PAT 50/ 56 LTG Duration 06/06/24 GOAL MET 05/21/24 One Impairment Pt does not have an appropriate home exercise program Short Term Goal (STG) Pt to be independent and compliant with an appropriate HEP STG Duration 04/07/24 Progress Towards Goals Progress Comments MET GOAL: LTG #2 met balance goals . Assessment Summary Assessment Pt making gains with improved balance scores. Continued education on BLEs and postural alignment sleeping, sitting and standing with flexibility reviewed hip stretch for hip and back tightness reduction carryover into standing stability home. Physical Therapy Plan Frequency and Duration Frequency of Treatment 2x/Week Plan of Care Start Date 03/08/24 Plan of Care End Date 06/06/24 Therapeutic Interventions Therapeutic Interventions Balance Training,Home Exercise Program,Joint Mobilizations, Manual Therapy,Neuromuscular Re-education,Patient/Caregiver Education,Self-Care/Home Management,Soft Tissue Mobilization,Therapeutic Activities,Therapeutic Exercises Next Visit Focus/Plan Next Note Type Discharge Summary Next Visit Plan 06/08/24 DC with PT next visit FInalize HEP and balance progression challenges to support return to activities on her own.
--- NOTE | 2024-06-02 15:46 | PT.OTN ---
Current Diagnoses Unsteadiness on feet (06/02/24) Other abnormalities of gait and mobility (06/02/24) Repeated falls (06/02/24) Physical Therapy Treatment Note PT-OP-A Visit Information Start: 03/08/24 14:26 Freq: Status: Active Protocol: Document 06/02/24 15:15 DCW (Rec: 06/02/24 15:46 DCW [id number]) Out-Patient Physical Therapy Visit Information Visit Information Visit Type Discharge Summary Visit Start Time 15:15 Visit Stop Time 15:40 Visit Number 16 Number of ENGINE[employer] Visits 0 Evaluation Information Evaluation Date 03/08/24 PT-OP-B Current Condition Start: 03/08/24 14:26 Freq: Status: Active Protocol: Document 03/08/24 09:45 DCW (Rec: 03/08/24 17:54 DCW [id number]) Current Condition History of Current Condition Onset Date Long-standing history Current Complaints Poor balance, worsening posture, falls, weakness History of Current Condition Pt is an 78 year old female presenting with a long- standing history of poor balance, weakness, falls. Pt was previously treated at this clinic ~2.5 years ago for similar concerns with good results, however pt notes that she feels like she is much worse at this point. Has suffered three falls over the past three months, feels like it has mostly been due to catching her feet or walking on uneven surfaces. Does not use any assistive device, but I feel a lot better when I'm using a shopping cart. Does have a history of scoliosis and overall poor posture, but feels it is worsening. PT-OP-C Subjective Start: 03/08/24 14:26 Freq: Status: Active Protocol: Document 06/02/24 15:15 DCW (Rec: 06/02/24 15:46 DCW [id number]) OP-PT Subjective Patient Comments Patient Comments Pt feeling very comfortable with balance, agreeable to discharge PT-OP-D Balance Start: 03/08/24 14:26 Freq: Status: Active Protocol: Document 05/21/24 07:35 SP (Rec: 05/21/24 08:31 SP [id number]) Balance Tests Pat Balance Test Pat Balance Test Score 50/56 Pat Impairment Rating 1 to 19% Impaired (Score 45-55 ) PT-OP-E Functional Tests Start: 03/08/24 14:26 Freq: Status: Active Protocol: Document 06/02/24 15:15 DCW (Rec: 06/02/24 15:38 DCW [id number]) Functional Tests Dynamic Gait Index (DGI) Score DGI Impairment Rating 1 to <20% Impaired (Score 20- 23) PT-OP-J Posture/Palpation/Skin Start: 03/08/24 17:54 Freq: Status: Active Protocol: Document 06/02/24 15:15 DCW (Rec: 06/02/24 15:38 DCW [id number]) Posture Evaluation Position Standing T-Spine Posture Fixed Scoliosis on (R), Increased Kyphosis L-Spine Posture Fixed Scoliosis on (L) Knee Posture (L) Excess Flexion,(R) Excess Flexion PT-OP-M Strength Start: 03/08/24 14:26 Freq: Status: Active Protocol: Document 06/02/24 15:15 DCW (Rec: 06/02/24 15:38 DCW [id number]) Hip Strength Hip Manual Muscle Testing Right Flexion (L2) 4+ Good+ Abduction 4 Good Adduction 4 Good External Rotation 4+ Good+ Internal Rotation 4+ Good+ Left Flexion (L2) 4+ Good+ Abduction 4 Good Adduction 4 Good External Rotation 4+ Good+ Internal Rotation 4+ Good+ Knee Strength Knee Manual Muscle Testing Right Flexion (S2) 4 Good Extension (L3) 4 Good Left Flexion (S2) 4 Good Extension (L3) 4 Good Ankle/Foot Strength Ankle and Foot Manual Muscle Testing Right Dorsiflexion (L4) 4 Good Left Dorsiflexion (L4) 4 Good PT-OP-Q Treatments Start: 03/08/24 14:26 Freq: Status: Active Protocol: Document 05/21/24 07:35 SP (Rec: 05/21/24 08:18 SP [id number]) Cardio Equipment Recumbent Elliptical (Biodex) Duration (Minutes) 8 Resistance 7 Seat Position 9 Other BUE& BLEs 40 RPMs, 586 s teps Therapeutic Exercises Supine Exercises Hip ER and adductor stretch Supine Exercise Name added to HEP /c HO Side bilateral Reps/Minutes 30 hold Comments cued back toward table Sitting Exercises HIP ER stretch Sitting Exercise Name FIg 4 Side left Resistance L ankle over R knee Reps/Minutes 30 SH Comments good anterior and lateral hip stretch, limited in range Standing Exercises Extension Standing Exercise Name Shoulder Extension- reviewed Side bilateral Resistance Green TB Reps/Minutes 10 SH x10 reps Comments good posture Neuro Re-Education Treatment Balance Activities PAT Details 50/56 DGI Details Dynamic Gait Details Hallway ambulation Comments Head turns (90 bpm) Retro Ambulation (EO/EC) Tandem Ambulation Self-Care/Home Management Treatment Education Patient Education Home Exercise Program,Joint Protection,Pain Management Other Education Discussion incorporation of hip stretching before gets out of bed to support ROM, decrease stiffness and pain reduction when gets up in the am. Continued discussion of use pillows between BLEs side sleeping for hip and spinal alignment for carryover postural alignment and decreased hip and back discomfort standing stability. Verbalized will remember that would help the same as keeping her knees apart sitting, notices doing so improves her knee alignment and posture standing. PT-OP-T Assessment and Plan Start: 03/08/24 14:26 Freq: Status: Active Protocol: Document 06/02/24 15:15 DCW (Rec: 06/02/24 15:46 DCW [id number]) Physical Therapy Assessment Goals Three Impairment Poor posture secondary to scoliosis and inability to fully extend knees [facility] Goal (LTG) Pt to demonstrate ability to stand with knees in 0? extension >75% of the time with no cues in order to improve ability to keep center of gravity over base of support. 05/04/24: She reports can stand for about 1 min with upright posture legs straight before back starts to hurt so relaxed into her flexed posture. LTG Duration Progressing Two Impairment Pt presents as a significant falls risk, per Pat (35/56) and DGI (05/23) [facility] Goal (LTG) Pt to exhibit a decrease in risk of falls by improving DGI score by at least five points to 05/21/24: DGI , PAT 50/ 56 LTG Duration Met One Impairment Pt does not have an appropriate home exercise program Short Term Goal (STG) Pt to be independent and compliant with an appropriate HEP STG Duration Met Assessment Summary Assessment Pt has largely met goals, balance significantly improved since initial evaluation. Pat improved from 35/56 to 50 /56, DGI improved from 05/23 to . Pt demonstrates understanding with HEP. Feels comfortable with current level of function. Pt appropriate for discharge at this time. Physical Therapy Plan Frequency and Duration Frequency of Treatment 2x/Week Plan of Care Start Date 03/08/24 Plan of Care End Date 06/06/24 Therapeutic Interventions Therapeutic Interventions Balance Training,Home Exercise Program,Joint Mobilizations, Manual Therapy,Neuromuscular Re-education,Patient/Caregiver Education,Self-Care/Home Management,Soft Tissue Mobilization,Therapeutic Activities,Therapeutic Exercises Discharge Physical Therapy Discharge Comments D/c to independent HEP Next Visit Focus/Plan Next Note Type Discharge Summary
== END 2024-08-16 10:08 | disposition home or self-care (01) ==
LOC: PHYS 15:15
PROVIDERS: Family Provider Family Medicine; PCP Family Medicine; Referring Provider Family Medicine; Visit Provider Family Medicine
DX: R26.89 Other abnormalities of gait and mobility (principal); R29.6 Repeated falls; R26.81 Unsteadiness on feet
CPT/HCPCS: 97110; 97112; 97140; 97163

== ENCOUNTER → 2024-06-09 09:55 | Outpatient (CLI) | payer MEDICARE, OTHER, SELFPAY ==
[2024-03-10 14:17] VITALS: BMI 24.0
--- NOTE | 2024-06-09 09:56 | DI.RAD.S_ITS ---
PROCEDURE: XR SHOULDER RT MIN 2V INDICATIONS: Right Shoulder impingement TECHNIQUE: 3 views of the shoulder were acquired. COMPARISON: None. FINDINGS: Bones: [id number] acromioclavicular joint and glenohumeral joint osteoarthritic changes are seen. Likely postsurgical changes in greater tuberosity of humeral head are seen. No acute fracture or dislocation. No suspicious bony lesions. Visualized ribs appear intact. Soft tissues: No suspicious soft tissue calcifications. IMPRESSION: No acute shoulder fracture or dislocation. Likely postsurgical changes in humeral head. Ivfw-bv-[id number] right shoulder joint osteoarthritis. Dictated by: Alfredo Rivera M.D. on 06/09/2024 at 15:37 Approved by: Alfredo Rivera M.D. on 06/09/2024 at 15:40
== END ==
PROVIDERS: Family Provider Family Medicine; PCP Family Medicine; Referring Provider Physical Medicine & Rehabilitation; Visit Provider Physical Medicine & Rehabilitation
DX: M19.011 Primary osteoarthritis, right shoulder (principal); M75.41 Impingement syndrome of right shoulder; M75.42 Impingement syndrome of left shoulder; M54.17 Radiculopathy, lumbosacral region; M62.830 Muscle spasm of back; M43.16 Spondylolisthesis, lumbar region; M17.12 Unilateral primary osteoarthritis, left knee; Z79.01 Long term (current) use of anticoagulants
CPT/HCPCS: 20611; 73030; 99214; J7318

== ENCOUNTER 2024-09-30 10:02 | Outpatient (CLI) | payer MEDICARE, OTHER, SELFPAY ==
[2024-03-10 14:17] VITALS: BMI 24.0
[2024-09-30] VITALS (10 sets, daily range): BP systolic 108–141; BP diastolic 56–81; PULSE 68–73; RESP 16–19; TEMP 36.2; O2SAT 97–100
[2024-09-30] MEDS: MIDAZOLAM 2 MG/2 ML VIAL IV (11:52)
[2024-09-30] MEDS: DEXAMETHASONE 10 MG/ML VIAL 20 MG INJ (11:56)
[2024-09-30] MEDS: BUPIVACAINE 0.25% (PF) VIAL 2 ML INJ (11:57)
[2024-09-30] MEDS: BETAMETHASONE 30 MG/5 ML MDV 12 MG INJ (11:57)
[2024-09-30] MEDS: iopamidoL 15 ML VIAL 3 ML INJ (11:57)
[2024-09-30] MEDS: BETAMETHASONE 30 MG/5 ML MDV 6 MG INJ (11:58)
--- NOTE | 2024-09-30 12:14 | PM.PROC.IR.1 ---
Date/Time/Diagnoses Date of procedure: 09/30/24 Time of procedure: 12:15 Pre-procedure diagnosis: 1. FORAMINAL STENOSIS WITH LE SYMPTOMS Procedure Notes Procedure: 1. FLUOROSCOPICALLY GUIDED CONTRAST CONTROLLED TRANSFORAMINAL EPIDURAL STEROID INJECTION - BILATERAL L4/5 TFESI Indications: Ivy is referred by Dr. Zacarias for treatment of Foraminal Stenosis with bilateral LE Symptoms Physician: Merrill Wang Total Fluoroscopy time (seconds): 18 Total sedation minutes: 21 Complications: none Procedure in detail & Post-procedure care: FINDINGS Foraminal Nerve Root Compression secondary to disc disease and facet hypertrophy DESCRIPTION OF PROCEDURE Following review of allergy and review of potential side effects and complications, including, but not necessarily limited to, infection, allergic reaction, local tissue breakdown, stroke, temporary or permanent nerve injury, paralysis, and possible , the patient indicated that the patient understood and agreed to proceed. An informed consent document was signed by the patient, witnessed by a nurse, and placed in the patient's chart. Additionally, other treatment options including medications, modalities, and physical therapy were reviewed with the patient. After review of previous anaesthesic history and IV conscious sedation the patient was deemed safe to proceed with today?s procedure with IV conscious sedation as ASA class II designation. Safety time-out was performed to confirm patient ID, procedure to be performed and site of procedure. IV sedation was accomplished with a combination of 2mg of Versed was administered by the RN after DO order, titrated to patient comfort during the course of the procedure while the patient remained responsive to all verbal commands In the prone position following sterile prep and drape of the lumbar region, the right L4/5 posterior neuroforamen was identified fluoroscopically. The skin was anesthetized via a 25-gauge 1.5-inch needle with 1% lidocaine solution. At this point, a 25-gauge 3.5-inch spinal needle was atraumatically introduced and advanced under fluoroscopic guidance through the posterior right L4/5 neuroforamen to approximately the anterior aspect of the canal. Depth was confirmed on lateral view. Following negative aspiration, injection of approximately 1.5cc of Isovue 200 under live fluoroscopy in the AP view confirmed excellent flow along the nerve root, into the epidural space without vascular or intrathecal uptake observed Radiological data, including multiple fluoroscopic views of the lumbosacral spine, reveal a spinal needle at the right L4/5 posterior neuroforamen. Subsequent views show flow of contrast material flowing superiorly and inferiorly along the nerve root confirming epidural flow. Subsequently, a test dose of 1.5cc of 1% lidocaine solution was administered and patient was observed for two minutes for signs or symptoms of complications, including abdominal pain, shortness of breath, bilateral upper or lower extremity weakness, nausea and vomiting, prior to steroid injection. At this point, a total of 2cc or 10mg of dexamethasone and 6mg betamethasone was injected without incident. Attention was then refocused to the left L4/5 level where the identical procedure was replicated. The procedure tolerated the procedure well without signs or symptoms of complications prior to transfer to the recovery area continued monitoring without incident. The patient was then transferred to the recovery area where they were observed for an appropriate time after the injection. The patient reported a VAS score of 7 prior to the procedure and a post-procedure VAS of 0. POST OP INSTRUCTIONS The patient was provided a Pain Log to continue to record their response to the target-specific procedure prior to follow-up visit with their referring physician. Additionally, specific post-injection care instructions and a contact number to our office were provided if concerns arise regarding possible complications associated with the procedure are suspected.
== END 2024-09-30 14:03 | disposition home or self-care (01) ==
PROVIDERS: Family Provider Family Medicine; PCP Family Medicine; Referring Provider Physical Medicine & Rehabilitation; Visit Provider Physical Medicine & Rehabilitation
DX: M48.061 Spinal stenosis, lumbar region without neurogenic claudication (principal); M51.16 Intervertebral disc disorders with radiculopathy, lumbar region; M47.26 Other spondylosis with radiculopathy, lumbar region
CPT/HCPCS: 64483; 99152; J0702; J1100; J2250; J3490

== ENCOUNTER 2024-12-21 22:25 | Emergency (ER) | payer MEDICARE, OTHER, SELFPAY ==
[2024-03-10 14:17] VITALS: BMI 24.0
[2024-12-21 22:36] VITALS: BP 167/74; PULSE 85; RESP 20; TEMP 36.8; O2SAT 98; BMI 21.9
== END 2024-12-22 00:22 | disposition left against medical advice (07) ==
PROVIDERS: Emergency Provider Emergency Medicine; Family Provider Family Medicine; PCP Family Medicine
DX: Z53.21 Procedure and treatment not carried out due to patient leaving prior to being seen by health care provider (principal)
CPT/HCPCS: 99281

== ENCOUNTER 2025-01-08 16:56 | Emergency (ER) | payer MEDICARE, OTHER, SELFPAY ==
[2024-03-10 14:17] VITALS: BMI 24.0
[2025-01-08 16:58] VITALS: BP 134/60; PULSE 74; RESP 17; TEMP 36.9; O2SAT 100; BMI 21.7
--- NOTE | 2025-01-08 17:04 | DI.CT.S_ITS ---
PROCEDURE: CT CERVICAL SPINE WO CON INDICATIONS: fall TECHNIQUE: Noncontrast 3 mm thick sections acquired from the skull base to the T4 level. Sagittal and coronal reformats were then constructed. For radiation dose reduction, the following was used: automated exposure control, adjustment of mA and/or kV according to patient size. COMPARISON: [facility], CT, CT CHEST ABD PEL WO CON, 01/08/2025, 17:08. FINDINGS: Image quality: Excellent. Bones: No fractures or dislocations. Visualized superior ribs are intact. Soft tissues: Prevertebral soft tissues are normal in thickness. No paravertebral hematomas. No apical pneumothoraces. IMPRESSION: No displaced fracture or traumatic subluxation. Dictated by: Haider Ge M.D. on 01/08/2025 at 18:09 Approved by: Haider Ge M.D. on 01/08/2025 at 18:12
--- NOTE | 2025-01-08 17:04 | DI.CT.S_ITS ---
PROCEDURE: CT CHEST ABD PEL WO CON INDICATIONS: fall TECHNIQUE: After the administration of oral contrast, 5 mm thick sections acquired from the lung apices to the symphysis pubis. 5 mm thick coronal and sagittal reformats acquired, with additional 7 mm coronal MIP reformats through the lungs. For radiation dose reduction, the following was used: automated exposure control, adjustment of mA and/or kV according to patient size. COMPARISON: [facility], CT, CT ANGIO CHEST PE PROTOCOL, 12/15/2023, 12:25. FINDINGS: Image quality: Diagnostic. Evaluation of the solid parenchymal organs is limited without IV contrast. CHEST: Lower Neck: No enlarged lymph nodes. Thyroid: No thyroid nodules which require sonographic follow up, per consensus guidelines. Axillae: No enlarged lymph nodes. Chest Wall: Unremarkable. Bones: No suspicious osseous lesion. Lungs and Pleura: No pneumothorax or pleural effusions. No consolidation or suspicious nodules. A few mildly dilated airways. A few areas of distal mucus airway plugging most pronounced in the right middle lobe. Heart: Heart size is normal. Moderate to severe coronary artery calcifications. No pericardial effusion. Thoracic Vessels: The aorta and pulmonary arteries demonstrate normal size. Mediastinum and Hayley: No enlarged lymph nodes. Esophagus: No wall thickening. Moderate hiatal hernia. ABDOMEN: Liver: No solid mass. Gallbladder: Absent. Biliary ducts: No biliary dilation. Pancreas: No ductal dilation. Spleen: Size is within normal limits. Hypodense focus is again seen, (), similar. Adrenal Glands: No adrenal nodules. Kidneys and Ureters: Left Kidney crossed fused ectopia. No stones seen. No hydronephrosis. Stomach and Bowel: Normal colonic caliber, without significant wall thickening. The appendix is not seen. Peritoneum: No abnormal intraperitoneal fluid. No free air. Ventral Wall: No hernia. Abdominal Nodes: No retroperitoneal or mesenteric adenopathy by size criteria. Vessels: Aorta and inferior vena cava are normal in size. PELVIS: Pelvic Organs: Uterus is absent. Bladder: Unremarkable. Pelvic Nodes: No enlarged lymph nodes. Miscellaneous: No inguinal hernias are seen. Bones: No aggressive osseous abnormality. Scoliosis. IMPRESSION: Evaluation is somewhat limited without IV contrast. No acute traumatic injury identified. Left Kidney cross fused ectopia. Moderate hiatal hernia. Hypodense focus in the spleen is similar. Most likely a cyst or hemangioma. Dictated by: Haider Ge M.D. on 01/08/2025 at 17:57 Approved by: Haider Ge M.D. on 01/08/2025 at 18:08
--- NOTE | 2025-01-08 17:04 | DI.CT.S_ITS ---
PROCEDURE: CT HEAD/BRAIN WO CON INDICATIONS: fall TECHNIQUE: Noncontrast 4.5 mm thick angled axial sections acquired from the foramen magnum to the vertex, with coronal and sagittal reformats. For radiation dose reduction, the following was used: automated exposure control, adjustment of mA and/or kV according to patient size. COMPARISON: [facility], CT, CT HEAD/BRAIN WO CON, 02/04/2024, 10:42. FINDINGS: Image quality: Diagnostic. CSF spaces: Basal cisterns are patent. No extra-axial fluid collections. Ventricles are normal in size and shape. Brain: No midline shift. No intracranial mass effect or hemorrhage. No area of hypodensity in a large vascular distribution to suggest acute infarction. Periventricular hypodensity consistent with chronic microvascular ischemic change. Age-related parenchymal loss. Skull and face: Calvarium and visualized facial bones are intact, without suspicious lesions. Sinuses: Visualized sinuses and mastoids are clear. IMPRESSION: No acute intracranial pathology. Dictated by: Haider Ge M.D. on 01/08/2025 at 17:54 Approved by: Haider Ge M.D. on 01/08/2025 at 17:56
--- NOTE | 2025-01-08 18:13 | PC.NURSE ---
Pt speaking in full sentences and mentation is WNL. Reports goose egg to the top of head and rib pain.
--- NOTE | 2025-01-08 19:23 | ED_ITS ---
HPI - Trauma General Chief Complaint: Trauma Stated Complaint: GLF, Head Injury Time Seen by Provider: 01/08/25 17:04 Source: patient Mode of arrival: Ambulatory History of Present Illness HPI narrative: 79-year-old female past medical history of hypertension, hypothyroidism, AFib on Eliquis comes into the ED from home for evaluation of mechanical trip and fall, she states she was walking at [facility] and had a mechanical trip and fall landed to her left side, did have head strike but no LOC, was able to stand bear weight ambulate immediately after, she is not having any significant pain accepted a dull headache, also noted a goose egg on her left side of her head but otherwise not complaining of any headache visual disturbances chest pain shortness breath fever chills nausea vomiting abdominal pain or any other GI/ symptoms time. Related Data Home Medications ?Medication ?Instructions ?Recorded ?Confirmed cholecalciferol (vitamin D3) 50 2,000 unit PO DAILY 12/22/24 mcg (2,000 unit) capsule multivitamin 1 tab PO DAILY 01/11/1911/29 lutein 25 mg-zeaxanthin 5 mg 25 cap PO DAILY 05/04/19 12/22/24 capsule (Ocuvite Lutein) nitroglycerin 0.4 mg sublingual 0.4 mg sublingual PRN PRN Chest 08/31/19 12/22/24 tablet Pain mecobalamin (vitamin B12) PO 03/31/20 12/22/24 ascorbic acid (vitamin C) PO DAILY 03/14/21 12/22/24 carvedilol 6.25 mg tablet 6.25 mg PO BID 01/22/2411/29 magnesium oxide 400 mg (241.3 mg 400 mg PO DAILY 03/1012/22/24 magnesium) tablet (MagOx) losartan 50 mg tablet 50 mg PO BID 03/30/24 amlodipine 2.5 mg tablet 2.5 mg PO BID 06/15/2401/07 apixaban 2.5 mg tablet 2.5 mg PO BID 11/09/2401/07 levothyroxine 50 mcg tablet 50 mcg PO DAILY 12/22/24 0 12/22/24 doxypin elixir PO 01/07/25 ibuprofen 200 mg tablet (Motrin IB) 200 mg PO Q6H PRN 01/07/25 01/07/25 Previous Rx's ?Medication ?Instructions ?Recorded diclofenac sodium 1 % topical gel 2 g topical QID PRN pain #100 grams 05/20/22 clobetasol 0.05 % topical cream 1 applic topical DAILY #60 grams 03/02/24 omeprazole 20 mg capsule,delayed 20 mg PO DAILY #90 ca ps 05/07/24 release gabapentin 100 mg capsule 100 mg PO BEDTIME #90 caps 0 09/06/24 methocarbamol 500 mg tablet 500 mg PO BID PRN for musc le spasm 09/13/24 #180 tabs Allergies Allergy/AdvReac Type Severity Reaction Status Date / Time ampicillin Allergy Intermediate Rash Verified 01/08/25 16:58 Penicillins Allergy Intermediate Was told Verified 01/08/25 16:58 not to take due to Ampicillin reaction adhesive tape AdvReac Mild Blister/Skin Verified 01/08/25 16:58 came off. erythromycin base (From AdvReac Vomiting Verified 01/08/25 16:58 Erythrocin) within 10 min of taking oxycodone AdvReac twitching Verified 01/08/25 16:58 Review of Systems Review of Systems Narrative: General: Positive ground level fall Denies fever, chills, weight loss HEENT: Positive bump on head Denies headache, eye drainage, eye irritation, head trauma, sore throat, voice change Cardiovascular: Denies any chest pain, palpitations, tachycardia Respiratory: Denies any shortness of breath, cough, wheeze, stridor GI/: Denies any abdominal pain, nausea, vomiting, diarrhea, bright red blood per rectum, melanotic stools, urinary frequency, urinary retention, dysuria, hematuria MSK: Denies any joint pain, muscle pains, swelling Skin: Denies any rashes, lesions, discoloration Neuro: Denies any headache, lightheadedness, dizziness, fainting, weakness Psych: Denies SI/HI Patient History Medical History (Updated 01/08/25 @ 20:03 by Joo Foreman DO) Oral cancer Balance problem Physical deconditioning Anticoagulation monitoring, INR range 2-3 Impingement syndrome of right shoulder Impingement syndrome of left shoulder Lumbosacral radiculopathy at L4 Vitamin D deficiency Left knee DJD Facet arthropathy, lumbar Raynaud phenomenon Foraminal stenosis of lumbar region Lichen planus Osteoporosis Tenosynovitis of finger Spondylisthesis Vision disorder Rheumatoid arthritis Allergies (~1999) TGA (transient global amnesia) (~2014) Headache Scoliosis (~1954) Rib fractures Pertussis (~1954) Rubella (~1949) Mumps Measles (~1949) Chicken pox (~1949) Hearing loss (~2008) Infertility (~1966) GERD (gastroesophageal reflux disease) (~2004) Diverticular disease (~2010) Colon polyps (~2016) Heart stopped beating (~2010) Heart failure (~2010) Deep vein thrombosis (~2010) History of pulmonary embolism (~2010) Paroxysmal A-fib (~2010) Essential hypertension (~2004) Hypothyroid Surgical History Anesthesia History of dilation and curettage History of tubal ligation History of surgery (~1966) Strabismus History of tonsillectomy and adenoidectomy Cataracts, bilateral (~2013) History of kidney surgery (~2010) History of colectomy (~2010) S/P exploratory laparotomy S/P devora (~1992) S/P partial colectomy (~2010) Family History Father Stroke Loud snoring Mother Alcohol abuse Brother Hypertension Sister Back problem Grandfather Cancer Grandmother Diabetes mellitus Grandfather Stroke Grandmother Stroke Social History household members: spouse Smoking Status: Never smoker Smoking Status: Never smoker alcohol intake frequency: holidays/special occasions only Alcohol type: other Exam Narrative Exam Narrative: General: Cooperative, well-developed, not in acute distress HEENT: Hematoma noted to the top of the left side of the head, no overlying erythema abrasion ecchymosis no palpable gross step-offs, PERRLA, normal sclera, eyelids normal Neck: Active full range of motion, atraumatic Chest: Normal to inspection, negative crepitus, no overlying erythema ecchymosis Respiratory: Normal respiratory effort, not in acute respiratory distress, clear to auscultation bilaterally negative cough, wheeze, tachypnea, rhonchi, rales Cardiology: Regular rate rhythm negative gallop, murmur, rubs GI/: No tenderness to palpation, soft, non rigid, normal to inspection, exam deferred MSK: Full active range of motion in all 4 extremities, atraumatic, no tenderness to palpation of any bony prominences Skin: No rashes or lesions noted Neuro: Alert awake oriented x3, moves all 4 extremities spontaneously, cranial nerves intact, able to answer all questions appropriately follows commands appropriately Psych: Cooperative, negative suicidal or homicidal ideations Initial Vital Signs Initial Vital Signs: Vital Signs Temperature 98.5 F 01/08/25 16:58 Pulse Rate 74 01/08/25 16:58 Respiratory Rate 17 01/08/25 16:58 Blood Pressure 134/60 01/08/25 16:58 Pulse Oximetry 100 01/08/25 16:58 Oxygen Delivery Method Room Air 01/08/25 16:58 Course Orders Ordered: ED Orders 01/08/25 17:04 CT cervical spine wo con Stat CT chest abd pel wo con Stat CT head/brain wo con Stat Vital Signs Vital signs: Vital Signs - 8 hr 01/08/25 16:58 Temperature 98.5 F Pulse Rate 74 Respiratory Rate 17 Blood Pressure 134/60 Pulse Oximetry 100 Oxygen Delivery Method Room Air MDM - Trauma Differential Diagnosis Differential diagnosis: Likely other (Hematoma, fracture, cervical neck fracture, rib fracture) Imaging Data CT scan - head: Radiologist's Impression: [place] [address] CT Scan Report Signed Patient: Porsche Branham MR#: [id number] : 1945 Acct:[id number] Age/Sex: 79 / F Date of Service: 01/08/25 Loc: ED Accession Number: [id number] Procedure: CT head/brain wo con Ordering Provider: Caesar Salazar MD PROCEDURE: CT HEAD/BRAIN WO CON INDICATIONS: fall TECHNIQUE: Noncontrast 4.5 mm thick angled axial sections acquired from the foramen magnum to the vertex, with coronal and sagittal reformats. For radiation dose reduction, the following was used: automated exposure control, adjustment of mA and/or kV according to patient size. COMPARISON: [facility], CT, CT HEAD/BRAIN WO CON, 02/04/2024, 10:42. FINDINGS: Image quality: Diagnostic. CSF spaces: Basal cisterns are patent. No extra-axial fluid collections. Ventricles are normal in size and shape. Brain: No midline shift. No intracranial mass effect or hemorrhage. No area of hypodensity in a large vascular distribution to suggest acute infarction. Periventricular hypodensity consistent with chronic microvascular ischemic change. Age-related parenchymal loss. Skull and face: Calvarium and visualized facial bones are intact, without suspicious lesions. Sinuses: Visualized sinuses and mastoids are clear. IMPRESSION: No acute intracranial pathology. CT - cervical spine: Radiologist's Impression: [place] [id number] CT Scan Report Signed Patient: Porsche Branham MR#: [id number] : 1945 Acct:[id number] Age/Sex: 79 / F Date of Service: 01/08/25 Loc: ED Accession Number: [id number] Procedure: CT cervical spine wo con Ordering Provider: Caesar Salazar MD PROCEDURE: CT CERVICAL SPINE WO CON INDICATIONS: fall TECHNIQUE: Noncontrast 3 mm thick sections acquired from the skull base to the T4 level. Sagittal and coronal reformats were then constructed. For radiation dose reduction, the following was used: automated exposure control, adjustment of mA and/or kV according to patient size. COMPARISON: [facility], CT, CT CHEST ABD PEL WO CON, 01/08/2025, 17:08. FINDINGS: Image quality: Excellent. Bones: No fractures or dislocations. Visualized superior ribs are intact. Soft tissues: Prevertebral soft tissues are normal in thickness. No paravertebral hematomas. No apical pneumothoraces. IMPRESSION: No displaced fracture or traumatic subluxation. CT chest abdomen and pelvis: Radiologist's Impression: [address] [address] [address] Scan Report Signed Patient: Porsche Branham MR#: [id number] : 1945 Acct:[id number] Age/Sex: 79 / F Date of Service: 01/08/25 Loc: ED Accession Number: [id number] Procedure: CT chest abd pel wo con Ordering Provider: Caesar Salazar MD PROCEDURE: CT CHEST ABD PEL WO CON INDICATIONS: fall TECHNIQUE: After the administration of oral contrast, 5 mm thick sections acquired from the lung apices to the symphysis pubis. 5 mm thick coronal and sagittal reformats acq uired, with additional 7 mm coronal MIP reformats through the lungs. For radiation dose reduction, the following was used: automated exposure control, adjustment of mA and/or kV according to patient size. COMPARISON: [facility], CT, CT ANGIO CHEST PE PROTOCOL, 12/15/2023, 12:25. FINDINGS: Image quality: Diagnostic. Evaluation of the solid parenchymal organs is limited without IV contrast. CHEST: Lower Neck: No enlarged lymph nodes. Thyroid: No thyroid nodules which require sonographic follow up, per consensus guidelines. Axillae: No enlarged lymph nodes. Chest Wall: Unremarkable. Bones: No suspicious osseous lesion. Lungs and Pleura: No pneumothorax or pleural effusions. No consolidation or suspicious nodules. A few mildly dilated airways. A few areas of distal mucus airway plugging most pronounced in the right middle lobe. Heart: Heart size is normal. Moderate to severe coronary artery calcifications. No pericardial effusion. Thoracic Vessels: The aorta and pulmonary arteries demonstrate normal size. Mediastinum and Hayley: No enlarged lymph nodes. Esophagus: No wall thickening. Moderate hiatal hernia. ABDOMEN: Liver: No solid mass. Gallbladder: Absent. Biliary ducts: No biliary dilation. Pancreas: No ductal dilation. Spleen: Size is within normal limits. Hypodense focus is again seen, (), similar. Adrenal Glands: No adrenal nodules. Kidneys and Ureters: Left Kidney crossed fused ectopia. No stones seen. No hydronephrosis. Stomach and Bowel: Normal colonic caliber, without significant wall thickening. The appendix is not seen. Peritoneum: No abnormal intraperitoneal fluid. No free air. Ventral Wall: No hernia. Abdominal Nodes: No retroperitoneal or mesenteric adenopathy by size criteria. Vessels: Aorta and inferior vena cava are normal in size. PELVIS: Pelvic Organs: Uterus is absent. Bladder: Unremarkable. Pelvic Nodes: No enlarged lymph nodes. Miscellaneous: No inguinal hernias are seen. Bones: No aggressive osseous abnormality. Scoliosis. IMPRESSION: Evaluation is somewhat limited without IV contrast. No acute traumatic injury identified. Left Kidney cross fused ectopia. Moderate hiatal hernia. Hypodense focus in the spleen is similar. Most likely a cyst or hemangioma. MDM Narrative Medical decision making narrative: Patient is a 79-year-old female with a past medical history of hypertension hypothyroidism AFib on Eliquis presenting for mechanical trip and fall states that she was walking [employer] had a mechanical trip and fall landed on her left side, positive head strike but no LOC, she denies any other pain injury at this time, on exam only hematoma noted to the scalp with the left side of the head, patient remains without any focal deficits not complaining of any visual disturbances shortness breath or any other injuries, CT scans of her head neck chest abdomen and pelvis without any traumatic injury, patient was given strict return precautions she verbalized understanding of this and agrees to being discharged home with outpatient follow up Discharge Plan Departure Patient Disposition: Home Clinical Impression: Ground-level fall, Hematoma of scalp Activity Restrictions/Additional Instructions: Please read the discharge instructions sheet carefully and bring all papers to all doctor follow-up visits, as it may contain information that your doctor may want to see. Disease processes change and evolve, if your symptoms worsen or if you develop any new symptoms that are concerning to you please return for evaluation. Your evaluation today does not show any evidence of any life- threatening/serious illnesses requiring admission to the hospital or surgery. Please follow-up with your doctor for re-evaluation in approximately 1 day. Seek immediate medical attention for any worrisome symptoms. *If you do not have a primary care provider please contact the [facility] Resource line at [phone]. They will ask some questions about your medical history and help get you set up with a doctor in the community. Prescriptions: No Action diclofenac sodium 1 % gel 2 g TOP QID PRN (Reason: pain) Qty: 100 3RF Rx Instructions: apply to single elbow, wrist or hand; for hand includes palm/fingers/back of hand clobetasol 0.05 % cream 1 applic topical DAILY Qty: 60 2RF Rx Instructions: Apply a pea sized amount to area once daily at night omeprazole 20 mg capsule,delayed release(DR/EC) 20 mg PO DAILY Qty: 90 3RF methocarbamol 500 mg tablet 500 mg PO BID PRN (Reason: for muscle spasm) Qty: 180 3RF apixaban 2.5 mg tablet 2.5 mg PO BID nitroglycerin 0.4 mg tablet, sublingual 0.4 mg sublingual PRN PRN (Reason: Chest Pain) levothyroxine 50 mcg tablet 50 mcg PO DAILY doxypin elixir PO Rx Instructions: Rinse mouth out and spit, do not swallow ibuprofen [Motrin IB] 200 mg tablet 200 mg PO Q6H PRN multivitamin tablet 1 tab PO DAILY cholecalciferol (vitamin D3) 2,000 unit capsule 2,000 unit PO DAILY lutein-zeaxanthin [Ocuvite Lutein 25] 25-5 mg capsule 25 cap PO DAILY mecobalamin (vitamin B12) PO amlodipine 2.5 mg tablet 2.5 mg PO BID losartan 50 mg tablet 50 mg PO BID carvedilol 6.25 mg tablet 6.25 mg PO BID magnesium oxide [MagOx] 400 mg (241.3 mg magnesium) tablet 400 mg PO DAILY ascorbic acid (vitamin C) PO DAILY gabapentin 100 mg capsule 100 mg PO BEDTIME Qty: 90 2RF Referrals: Clair Zacarias DO [Primary Care Provider, Family Practice] Stand Alone Forms: Patient Portal/API
[2025-01-08 20:10] VITALS: BP 134/60; PULSE 77; RESP 16; O2SAT 99
== END 2025-01-08 20:12 | disposition home or self-care (01) ==
PROVIDERS: Emergency Provider Student in an Organized Health Care Education/Training Program; Family Provider Family Medicine; PCP Family Medicine
DX: S00.03XA Contusion of scalp, initial encounter (principal); W01.0XXA Fall on same level from slipping, tripping and stumbling without subsequent striking against object, initial encounter; Z79.01 Long term (current) use of anticoagulants
CPT/HCPCS: 70450; 71250; 72125; 74176; 99283; 99284

== ENCOUNTER 2025-03-10 12:56 | Outpatient (CLI) | payer MEDICARE, OTHER, SELFPAY ==
[2025-01-28 14:08] VITALS: BMI 24.0
[2025-03-10] VITALS (7 sets, daily range): BP systolic 111–141; BP diastolic 59–89; PULSE 64–85; RESP 14–16; O2SAT 94–98
[2025-03-10] MEDS: MIDAZOLAM 2 MG/2 ML VIAL IV (14:43)
[2025-03-10] MEDS: BETAMETHASONE 30 MG/5 ML MDV 12 MG INJ (14:49)
[2025-03-10] MEDS: LIDOCAINE 1% 20 ML INJ (14:50)
[2025-03-10] MEDS: BETAMETHASONE 30 MG/5 ML MDV 6 MG INJ (14:51)
--- NOTE | 2025-03-10 15:01 | PM.PROC.IR.1 ---
Date/Time/Diagnoses Date of procedure: 03/10/25 Time of procedure: 15:01 Pre-procedure diagnosis: 1. FORAMINAL STENOSIS WITH LE SYMPTOMS Procedure Notes Procedure: 1. FLUOROSCOPICALLY GUIDED CONTRAST CONTROLLED TRANSFORAMINAL EPIDURAL STEROID INJECTION - BILATERAL L4/5 TFESI Indications: Ivy is referred by Dr. Banda for treatment of Foraminal Stenosis with bilateral LE Symptoms Physician: Merrill Wang Total Fluoroscopy time (seconds): 8 Total sedation minutes: 13 Complications: none Procedure in detail & Post-procedure care: FINDINGS Foraminal Nerve Root Compression secondary to disc disease and facet hypertrophy DESCRIPTION OF PROCEDURE Following review of allergy and review of potential side effects and complications, including, but not necessarily limited to, infection, allergic reaction, local tissue breakdown, stroke, temporary or permanent nerve injury, paralysis, and possible , the patient indicated that the patient understood and agreed to proceed. An informed consent document was signed by the patient, witnessed by a nurse, and placed in the patient's chart. Additionally, other treatment options including medications, modalities, and physical therapy were reviewed with the patient. After review of previous anaesthesic history and IV conscious sedation the patient was deemed safe to proceed with today?s procedure with IV conscious sedation as ASA class II designation. Safety time-out was performed to confirm patient ID, procedure to be performed and site of procedure. IV sedation was accomplished with a combination of 2mg of Versed was administered by the RN after DO order, titrated to patient comfort during the course of the procedure while the patient remained responsive to all verbal commands In the prone position following sterile prep and drape of the lumbar region, the right L4/5 posterior neuroforamen was identified fluoroscopically. The skin was anesthetized via a 25-gauge 1.5-inch needle with 1% lidocaine solution. At this point, a 25-gauge 3.5-inch spinal needle was atraumatically introduced and advanced under fluoroscopic guidance through the posterior right L4/5 neuroforamen to approximately the anterior aspect of the canal. Depth was confirmed on lateral view. Following negative aspiration, injection of approximately 1.5cc of Isovue 200 under live fluoroscopy in the AP view confirmed excellent flow along the nerve root, into the epidural space without vascular or intrathecal uptake observed Radiological data, including multiple fluoroscopic views of the lumbosacral spine, reveal a spinal needle at the right L4/5 posterior neuroforamen. Subsequent views show flow of contrast material flowing superiorly and inferiorly along the nerve root confirming epidural flow. Subsequently, a test dose of 1.5cc of 1% lidocaine solution was administered and patient was observed for two minutes for signs or symptoms of complications, including abdominal pain, shortness of breath, bilateral upper or lower extremity weakness, nausea and vomiting, prior to steroid injection. At this point, a total of 2cc or 10mg of dexamethasone and 6mg betamethasone was injected without incident. Attention was then refocused to the left L4/5 level where the identical procedure was replicated. The procedure tolerated the procedure well without signs or symptoms of complications prior to transfer to the recovery area continued monitoring without incident. The patient was then transferred to the recovery area where they were observed for an appropriate time after the injection. The patient reported a VAS score of 7 prior to the procedure and a post-procedure VAS of 0. POST OP INSTRUCTIONS The patient was provided a Pain Log to continue to record their response to the target-specific procedure prior to follow-up visit with their referring physician. Additionally, specific post-injection care instructions and a contact number to our office were provided if concerns arise regarding possible complications associated with the procedure are suspected.
== END 2025-03-10 15:13 | disposition home or self-care (01) ==
LOC: RAD 12:56
PROVIDERS: PCP Internal Medicine; Referring Provider Physical Medicine & Rehabilitation; Visit Provider Physical Medicine & Rehabilitation
DX: M48.061 Spinal stenosis, lumbar region without neurogenic claudication (principal); M51.16 Intervertebral disc disorders with radiculopathy, lumbar region; M47.26 Other spondylosis with radiculopathy, lumbar region
CPT/HCPCS: 64483; 99152; J0702; J1100; J2250

== ENCOUNTER 2025-05-17 09:55 | Emergency (ER) | payer MEDICARE, OTHER, SELFPAY ==
[2025-01-28 14:08] VITALS: BMI 24.0
[2025-05-17] VITALS (14 sets, daily range): BP systolic 114–160; BP diastolic 62–87; PULSE 60–77; RESP 12–23; TEMP 36.6; O2SAT 96–100; BMI 19.5
--- NOTE | 2025-05-17 10:14 | DI.RAD.S_ITS ---
PROCEDURE: XR CHEST 1V INDICATIONS: Trauma TECHNIQUE: One view of the chest was acquired. COMPARISON: [facility], CR, XR CHEST 1V, 12/15/2023, 9:55. FINDINGS: Surgical changes and devices: None. Lungs and pleura: Lungs are clear. No pleural effusions or pneumothorax. Mediastinum: Mediastinal contours appear normal. Heart size is normal. Bones and chest wall: No suspicious bony lesions. Overlying soft tissues appear unremarkable. IMPRESSION: No acute pulmonary process. Dictated by: Susie Dunlap M.D. on 05/17/2025 at 11:06 Approved by: Susie Dunlap M.D. on 05/17/2025 at 11:07
--- NOTE | 2025-05-17 10:14 | DI.RAD.S_ITS ---
PROCEDURE: XR PELVIS 1-2V INDICATIONS: Trauma TECHNIQUE: 1 view(s) of the pelvis acquired. COMPARISON: None. FINDINGS: Bones: No fractures or dislocations. No suspicious bony lesions. Soft tissues: Visualized bowel gas pattern is normal. No suspicious soft tissue calcifications. IMPRESSION: No visualized acute fracture or dislocation. However, if clinical concern and/or pain persist, short interval imaging followup in 7-10 days is recommended, as occult injury cannot be definitively excluded. Dictated by: Susie Dunlap M.D. on 05/17/2025 at 11:06 Approved by: Susie Dunlap M.D. on 05/17/2025 at 11:06
--- NOTE | 2025-05-17 10:14 | EKG_ITS ---
[address] [address] Test Date: 2025-05-17 Pat Name: Porsche Branham Department: 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
--- NOTE | 2025-05-17 10:22 | DI.RAD.S_ITS ---
PROCEDURE: XR HAND RT MIN 3V INDICATIONS: 4th prox dig pain TECHNIQUE: 3 views of the hand(s) acquired. COMPARISON: None. FINDINGS: Bones: Oblique mildly displaced fracture through the 4th mid metacarpal. No intra-articular extension.. Carpal bones are normally aligned. No suspicious bony lesions. Soft tissues: No suspicious soft tissue calcifications. IMPRESSION: Mildly displaced 4th mid metacarpal fracture. Dictated by: Susie Dunlap M.D. on 05/17/2025 at 11:07 Approved by: Susie Dunlap M.D. on 05/17/2025 at 11:08
[2025-05-17 10:25] LABS: Add Manual Diff / Slide Review NO; Hematocrit 38.1 % (36-46); Hemoglobin 12.8 g/dL (12.0-16.0); Lymphocytes Absolute Auto 1000 /uL (1100-4500); Mean Corpuscular HGB Conc 33.7 % (30-36); Mean Corpuscular Hemoglobin 29.8 PG (26-34); Mean Corpuscular Volume 88.3 fL (80-100); Platelet Count 230 X10^3/uL (150-400)
[2025-05-17 10:27] LABS: INR 1.7 (0.9-1.3); Prothrombin Time 18.8 SECONDS (9.4-12.5)
[2025-05-17 10:29] LABS: PTT Partial Thromboplastin Tim 36 SECONDS (25.1-36.5)
[2025-05-17 10:32] LABS: Alanine Aminotransferase 18 IU/L (<35); Albumin 4.4 g/dL (3.5-5.0); Albumin Globulin Ratio 1.4 (1.0-2.8); Alkaline Phosphatase 75 U/L (38-126); Blood Urea Nitrogen 21 mg/dL (7-17); Calcium 9.4 mg/dL (8.4-10.2); Carbon Dioxide 27 mmol/L (22-32); Chloride 91 mmol/L (98-107); Estimated Glomerular Filt Rate > 60 mL/min (>60); Ethanol (ETOH) < 10 mg/dL (<10); Globulin 3.1 g/dL (1.7-4.1); Glucose 107 mg/dL (70-99); HEMOLYSIS < 15 (0-50); Lipase 78 U/L (23-300); Potassium 4.3 mmol/L (3.4-5.1); Sodium 125 mmol/L (137-145); Total Protein 7.5 g/dL (6.3-8.2)
[2025-05-17 10:40] LABS: Lactate (Lactic Acid) 1.0 mmol/L (0.7-2.1)
--- NOTE | 2025-05-17 11:53 | PC.NURSE ---
Pt ent via ambulance to [facility] for a head CT after fall on thinners. [facility] called shortly after her arrival and reported they did not have orders. [facility] called and clarified with [facility] regarding orders for this pt and clarification was confirmed around 1155. Ambulance staff called ER to inform staff that the pt was in the waiting room and had not been brought back yet. ETA for pt's return to [facility] will be around 1300 per ambulance staff.
--- NOTE | 2025-05-17 13:11 | PC.NURSE ---
Pt arrived back from [facility] with NWA, placed back on monitor and repositioned in stretcher.
[2025-05-17] MEDS: ACETAMINOPHEN IV 1,000 MG/100 ML VIAL 400 MG IV (13:12)
--- NOTE | 2025-05-17 13:51 | ED.FALL ---
HPI - Fall General Chief Complaint: Trauma Stated Complaint: fall on thinner Time Seen by Provider: 05/17/25 10:00 Source: patient Mode of arrival: Wheelchair History of Present Illness HPI Narrative: 80-year-old female with history of AFib on 2.5 mg of Eliquis presents after accidental fall in hospital parking lot after picking up her . She denies KO was helped up immediately and was able to walk. Patient has a significant history of oral cancer status post radiation treatment not currently on chemo. Patient denies any dizziness presyncopal symptoms, states it was a completely mechanical slip and fall. Patient states that she has had a slowly worsening mild unsteady gait for the past 2 years which is being followed by her primary care physician does not have an official diagnosis attached to it. Related Data Home Medications ?Medication ?Instructions ?Recorded ?Confirmed cholecalciferol (vitamin D3) 50 2,000 unit PO DAILY 01/11/19 03/30/25 mcg (2,000 unit) capsule multivitamin 1 tab PO DAILY 01/11/19 03/30/25 lutein 25 mg-zeaxanthin 5 mg 25 cap PO DAILY 05/04/19 03/30/25 capsule (Ocuvite Lutein) nitroglycerin 0.4 mg sublingual 0.4 mg sublingual PRN PRN Chest 08/31/19 03/30/25 tablet Pain mecobalamin (vitamin B12) PO 03/31/20 03/30/25 ascorbic acid (vitamin C) PO DAILY 03/14/21 03/30/25 carvedilol 6.25 mg tablet 6.25 mg PO BID 01/22/24 03/30/25 magnesium oxide 400 mg (241.3 mg 400 mg PO DAILY 03/10/24 03/30/25 magnesium) tablet (MagOx) losartan 50 mg tablet 50 mg PO BID 03/30/24 03/30/25 apixaban 2.5 mg tablet 2.5 mg PO BID 11/09/24 03/30/25 doxypin elixir PO 01/07/25 03/30/25 chlorohexidrine mucous membrane 02/15/25 03/30/25 glutamine PO 02/15/25 03/30/25 doxepin 10 mg/mL oral concentrate 10 mg PO ONCE PM 03/07/25 03/30/25 hydrocodone 5 mg-acetaminophen 325 1 tab PO Q6H PRN pain 03/07/25 03/30/25 mg tablet Previous Rx's ?Medication ?Instructions ?Recorded diclofenac sodium 1 % topical gel 2 g topical QID PRN pain #100 grams 05/20/22 gabapentin 100 mg capsule 100 mg PO BEDTIME #90 caps 09/06/24 methocarbamol 500 mg tablet 500 mg PO BID PRN for muscle spasm 09/13/24 #180 tabs clobetasol 0.05 % topical cream 1 applic topical DAILY #60 grams 02/15/25 levothyroxine 50 mcg tablet 50 mcg PO DAILY #90 tabs 02/15/25 omeprazole 20 mg capsule,delayed 20 mg PO DAILY #90 caps 02/15/25 release sucralfate 1 gram tablet 1 g PO BID #30 tabs 03/08/25 Allergies Allergy/AdvReac Type Severity Reaction Status Date / Time ampicillin Allergy Intermediate Rash Verified 03/30/25 09:20 Penicillins Allergy Intermediate Was told Verified 03/30/25 09:20 not to take due to Ampicillin reaction adhesive tape AdvReac Mild Blister/Skin Verified 03/30/25 09:20 came off. erythromycin base (From AdvReac Vomiting Verified 03/30/25 09:20 Erythrocin) within 10 min of taking oxycodone AdvReac twitching Verified 03/30/25 09:20 Review of Systems Review of Systems ROS Unobtainable: All systems reviewed & are unremarkable except as noted in HPI and below Patient History Medical History (Updated 05/17/25 @ 15:38 by Meng Agosto MD) Dysphonia Do not resuscitate Slow transit constipation Osteopenia Acquired hypothyroidism History of DVT (deep vein thrombosis) Other thrombophilia Chronic low back pain Mixed hyperlipidemia Paroxysmal atrial fibrillation Oral cancer Impingement syndrome of right shoulder Impingement syndrome of left shoulder Lumbosacral radiculopathy at L4 Vitamin D deficiency Left knee DJD Facet arthropathy, lumbar Raynaud phenomenon Foraminal stenosis of lumbar region Lichen planus Tenosynovitis of finger Spondylisthesis Vision disorder Allergies (~1999) TGA (transient global amnesia) (~2014) Headache Scoliosis (~1954) Rib fractures Pertussis (~1954) Rubella (~1949) Mumps Measles (~1949) Chicken pox (~1949) Hearing loss (~2008) Infertility (~1966) GERD (gastroesophageal reflux disease) (~2004) Diverticular disease (~2010) Colon polyps (~2016) Heart stopped beating (~2010) History of pulmonary embolism (~2010) Essential hypertension (~2004) Surgical History Anesthesia History of dilation and curettage History of tubal ligation History of surgery (~1966) Strabismus History of tonsillectomy and adenoidectomy Cataracts, bilateral (~2013) History of kidney surgery (~2010) History of colectomy (~2010) S/P exploratory laparotomy S/P devora (~1992) S/P partial colectomy (~2010) Family History Father Stroke Loud snoring Mother Alcohol abuse Brother Hypertension Sister Back problem Grandfather Cancer Grandmother Diabetes mellitus Grandfather Stroke Grandmother Stroke Social 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 Neck Neck: normal visual inspection, trachea midline, No lymphadenopathy, No midline deformity and No JVD Lymphatic: No lymphedema Chest Chest: normal inspection of the chest Resp Effort & Inspection: normal respiratory effort, able to speak in complete sentences, no respiratory distress and no use of accessory muscles Auscultation: clear to auscultation bilaterally, no rales, no rhonchi and no wheezes Cardio Rate: regular rate Rhythm: regular rhythm Heart Sounds: no click, no gallops, no murmurs and no rubs Pulses: normal peripheral pulses GI Inspection: non-distended Palpation: soft, no hepatosplenomegaly, No guarding, No pulsatile mass and No tender Auscultation: normal bowel sounds Back/Spine/Pelvis Back: No CVA tenderness Cervical Spine: cervical ROM normal and No pain with cervical ROM Thoracic/Lumbar Spine: thoracic and lumbar spine normal to inspection Neuro General: patient alert, patient oriented x3, gait normal and no focal motor deficits Speech: speech normal Extrem General: normal to inspection and full ROM Other: Slight tenderness to palpation to right lateral palm as well as right lateral 4th proximal digit. Psych Appearance: well kempt Mental Status: mental status grossly normal Attitude: cooperative Thought Content: normal and suicidality Judgment: judgment good Procedures Orthopedic Splinting/Casting Injury #1: Additional Comments: Patient with 4th metacarpal midshaft fracture on the right side reduced with the standard ulnar gutter splint wrist at 20? dorsiflexion 4th and 5th digits at 75 degrees. Course Orders Ordered: ED Orders 05/17/25 10:00 Complete Blood Count AUTO DIFF Stat Comprehensive Metabolic Panel Stat Ethanol (ETOH) Stat Lactate (Lactic Acid) Stat Lipase Stat PTT Partial Thromboplastin Elijah Stat Prothrombin Time INR Stat Type and Screen Stat 05/17/25 10:14 XR chest 1V Stat XR pelvis 1-2V Stat Urine Drug Screen, Rapid Stat EKG-12 Lead Stat 05/17/25 10:16 CT head/brain wo con Stat 05/17/25 10:18 CT cervical spine wo con Stat CT facial bones wo con Stat 05/17/25 10:22 XR hand RT min 3V Stat Discontinued Medications Acetaminophen (Ofirmev) 1,000 mg in 100 mls @ 400 mls/hr IV NOW ONE Stop: 05/17/25 10:27 Last Infusion: 05/17/25 13:37 Dose: Infused Documented By: Admin: 05/17/25 13:12 Dose: 400 mls/hr Documented By: EB Vital Signs Vital signs: Vital Signs - 8 hr 05/17/25 10:00 05/17/25 10:06 05/17/25 10:33 Temperature 97.9 F Pulse Rate 61 64 60 Respiratory Rate 12 17 16 Blood Pressure 129/64 Pulse Oximetry 100 100 Oxygen Delivery Method Room Air 05/17/25 13:07 05/17/25 13:09 05/17/25 13:09 Temperature Pulse Rate 77 68 Respiratory Rate 20 14 Blood Pressure 160/87 H Pulse Oximetry 100 Oxygen Delivery Method MDM - Fall Lab Data 05/17/25 10:00 05/17/25 10:00 Labs: Lab Results 11/18/25 Range/Units 10:00 WBC 5.2 (4.5-11.0) X10^3/uL RBC 4.32 (4.0-5.2) X10^6/uL Hgb 12.8 (12.0-16.0) g/dL Hct 38.1 (36-46) % MCV 88.3 (80-100) fL MCH 29.8 (26-34) PG MCHC 33.7 (30-36) % RDW 14.1 (11.6-14.8) % Plt Count 230 (150-400) X10^3/uL Neut % (Auto) 62.6 (50-75) % Lymph % (Auto) 19.7 L (25-40) % [place] % (Auto) 12.4 (3-14) % Eos % (Auto) 4.5 H (2-4) % Baso % (Auto) 0.8 (0-2) % Neut # (Auto) 3300 (9447-3564) /uL Lymph # (Auto) 1000 L (1936-8926) /uL [place] # (Auto) 700 (0-900) /uL Eos # (Auto) 200 (0-450) /uL Baso # (Auto) 0 (0-100) /uL PT 18.8 H (9.4-12.5) SECONDS INR 1.7 H (0.9-1.3) APTT 36 (25.1-36.5) SECONDS Sodium 125 L (137-145) mmol/L Potassium 4.3 (3.4-5.1) mmol/L Chloride 91 L (98-107) mmol/L Carbon Dioxide 27 (22-32) mmol/L BUN 21 H (7-17) mg/dL Creatinine 0.63 (0.52-1.04) mg/dL Estimated GFR > 60 (>60) mL/min BUN/Creatinine Ratio 33.3 H (6-22) Glucose 107 H (70-99) mg/dL Lactate 1.0 (0.7-2.1) mmol/L Calcium 9.4 (8.4-10.2) mg/dL Total Bilirubin 0.8 (0.2-1.3) mg/dL AST 41 H (14-36) IU/L ALT 18 (<35) IU/L Alkaline Phosphatase 75 (38-126) U/L Total Protein 7.5 (6.3-8.2) g/dL Albumin 4.4 (3.5-5.0) g/dL Globulin 3.1 (1.7-4.1) g/dL Albumin/Globulin Ratio 1.4 (1.0-2.8) Lipase 78 (23-300) U/L Ethyl Alcohol < 10 (<10) mg/dL Blood Type O Positive Antibody Screen Negative [facility] Narrative Medical decision making narrative: Pt presents with blunt trauma. CXR given possibility of PTX/pulmonary contusion/rib fx, however, deferred due to reassuring history and physical exam. CT brain to r/o intracranial hemorrhage/injury/skull fracture. CT C-spine to r/o C-spine fx/dislocation/injury. CT ab/pelvis/chest considered to r/o intra-abdominal/intrathoracic injury including pulmonary contusion/PTX/renal injury/colon injury/liver injury/spleen injury, etc. however, deferred due to reassuring history and physical exam. Labs to r/o severe anemia, electrolyte abnormality (including hypokalemia, hyperkalemia, hypernatremia, hyponatremia, hyperglycemia, hypoglycemia, etc), thrombocytopenia. Patient with CT imaging remarkable for nasal bone fracture but a negative CT head no intracranial bleed noted. CT scanning was done at outside facility due to CT downtime here. PDFs included in the chart. Patient also with right midshaft nondisplaced 4th metacarpal fracture. Discharge Plan Departure Patient Disposition: Home Clinical Impression: Acute head trauma, Fracture of fourth metacarpal bone of right hand, Closed fracture nasal bone Instructions: DI for Trauma Activity Restrictions/Additional Instructions: Please return if you have difficulty walking, bearing weight, moving the affected joint, worsening pain after tomorrow, a sudden loss of sensation, or if the affected area becomes cold. Please take your existing oxycodone and Tylenol. Prescriptions: No Action diclofenac sodium 1 % gel 2 g TOP QID PRN (Reason: pain) Qty: 100 3RF Rx Instructions: apply to single elbow, wrist or hand; for hand includes palm/fingers/back of hand methocarbamol 500 mg tablet 500 mg PO BID PRN (Reason: for muscle spasm) Qty: 180 3RF apixaban 2.5 mg tablet 2.5 mg PO BID nitroglycerin 0.4 mg tablet, sublingual 0.4 mg sublingual PRN PRN (Reason: Chest Pain) doxypin elixir PO Rx Instructions: Rinse mouth out and spit, do not swallow chlorohexidrine mucous membrane glutamine PO clobetasol 0.05 % cream 1 applic topical DAILY Qty: 60 2RF Rx Instructions: Apply a pea sized amount to area once daily at night levothyroxine 50 mcg tablet 50 mcg PO DAILY Qty: 90 3RF omeprazole 20 mg capsule,delayed release(DR/EC) 20 mg PO DAILY Qty: 90 3RF sucralfate 1 gram tablet 1 g PO BID Qty: 30 1RF multivitamin tablet 1 tab PO DAILY cholecalciferol (vitamin D3) 2,000 unit capsule 2,000 unit PO DAILY lutein-zeaxanthin [Ocuvite Lutein 25] 25-5 mg capsule 25 cap PO DAILY mecobalamin (vitamin B12) PO losartan 50 mg tablet 50 mg PO BID carvedilol 6.25 mg tablet 6.25 mg PO BID magnesium oxide [MagOx] 400 mg (241.3 mg magnesium) tablet 400 mg PO DAILY hydrocodone-acetaminophen 5-325 mg tablet 1 tab PO Q6H PRN (Reason: pain) doxepin 10 mg/mL concentrate 10 mg PO ONCE PM ascorbic acid (vitamin C) PO DAILY gabapentin 100 mg capsule 100 mg PO BEDTIME Qty: 90 2RF Referrals: Christian Banda MD [Primary Care Provider, Internal Medicine] Stand Alone Forms: Patient Portal/API
== END 2025-05-17 16:33 | disposition home or self-care (01) ==
PROVIDERS: Emergency Provider Emergency Medicine; PCP Internal Medicine
DX: S02.2XXA Fracture of nasal bones, initial encounter for closed fracture (principal); S62.324A Displaced fracture of shaft of fourth metacarpal bone, right hand, initial encounter for closed fracture; S09.8XXA Other specified injuries of head, initial encounter; I48.91 Unspecified atrial fibrillation; W01.0XXA Fall on same level from slipping, tripping and stumbling without subsequent striking against object, initial encounter; Y92.481 Parking lot as the place of occurrence of the external cause; Z79.01 Long term (current) use of anticoagulants
CPT/HCPCS: 26605; 29125; 71045; 72170; 73130; 80053; 80320; 83605; 83690; 85025; 85610; 85730; 86850; 86900; 86901; 93005; 93010; 96365; 99284; J0131

== ENCOUNTER → 2025-06-25 12:56 | Outpatient (CLI) | payer MEDICARE, OTHER, SELFPAY ==
[2025-05-23 11:09] VITALS: BMI 24.0
--- NOTE | 2025-06-25 12:59 | DI.MRI.S_ITS ---
PROCEDURE: MR HAND RT WO CON INDICATIONS: r/o central slip or extensor tendon injury TECHNIQUE: Noncontrast coronal T1 spin echo and T2 fast spin echo with fat saturation, axial proton density fast spin echo and T2 fast spin echo with fat saturation, sagittal T1 spin echo and STIR through the hand and fingers. COMPARISON: None. FINDINGS: Oblique fracture of the 4th metacarpal diaphysis with impaction approximately 1/2 shaft with dorsal translation. Fracture healing is incomplete and there is marrow edema in the 4th metatarsal. Cartilage loss and marrow edema like signal in the 1st metacarpal base and trapezium. Prominent subchondral cysts. This marrow edema like signal is likely degenerative. Small wrist effusion. Degenerative changes of the TFCC central articular disc without visible perforation. Disproportionately increased tendon sheath fluid in the flexor tendon to the ring finger, greatest at the level of the palm. Flexor and extensor tendons are intact. However there is marked volar subluxation of the long finger proximal phalanx at the metacarpal head and to a lesser extent at the index finger MCP. Radial and ulnar sagittal bands of the MCP of the long finger are completely torn. Ulnar sagittal band of the MCP of the index finger with high-grade partial versus complete tear. IMPRESSION: Incompletely healed fracture of 4th metacarpal diaphysis. Complete tears of radial and ulnar sagittal bands at the 3rd MCP with volar subluxation. High-grade partial versus complete tear of ulnar sagittal band at the 2nd MCP with volar subluxation. 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 Dictated by: Santiago Meeks M.D. on 06/27/2025 at 9:00 Approved by: Santiago Meeks M.D. on 06/27/2025 at 9:25
== END ==
LOC: MRI 12:58
PROVIDERS: PCP Internal Medicine; Referring Provider Physician Assistant Surgical; Visit Provider Physician Assistant Surgical
DX: S62.324 Displaced fracture of shaft of fourth metacarpal bone, right hand (principal); S66.391A Other injury of extensor muscle, fascia and tendon of left index finger at wrist and hand level, initial encounter; S63.212A Subluxation of metacarpophalangeal joint of right middle finger, initial encounter; S63.210A Subluxation of metacarpophalangeal joint of right index finger, initial encounter; M19.031 Primary osteoarthritis, right wrist; M18.11 Unilateral primary osteoarthritis of first carpometacarpal joint, right hand; M20.099 Other deformity of finger(s), unspecified finger(s); X58.XXXA Exposure to other specified factors, initial encounter; X58.XXXD Exposure to other specified factors, subsequent encounter
CPT/HCPCS: 73218